=== PATIENT | male | born 1940 | race Caucasian/White ===

== ENCOUNTER 2017-10-04 06:33 | Day surgery (SDC) | payer MEDICARE, OTHER, SELFPAY ==
[2017-10-04] MEDS: PROPARACAINE 0.5% OPHTH SOL 2 DROPS EYE-OP (06:55)
[2017-10-04 06:57] VITALS: BP 162/91; PULSE 51; RESP 16; TEMP 36.3; O2SAT 98; BMI 28.7
[2017-10-04] MEDS: CATARACT EYE COMPOUND (10 DROPS/SYRINGE) 3 DROPS EYE-OP ×3 (07:00→07:09)
--- NOTE | 2017-10-04 07:56 | PM.PREOP ---
Pre-operative Note Interval Note Changes: No
--- NOTE | 2017-10-04 07:57 | P.OP.PRE_ITS ---
Pre-operative Note Interval Note Changes: No
--- NOTE | 2017-10-04 08:01 | SUR.OPER ---
Supine on eye stretcher, head on extension cradle secured with tape. Arms tucked at sides with blanket. Pillow under knees.
[2017-10-04] MEDS: CHONDROIDTIN/SOD HYALURONATE 1.05 ML SYRINGE INTRAOCULA (08:06)
[2017-10-04] MEDS: LIDOCAINE JELLY 2% 5 ML 1 APPLIC TOP (08:07)
[2017-10-04] MEDS: PHENYLEPHRINE/LIDOCAINE 3ML VIAL (OR) EYE-OP (08:07)
[2017-10-04] MEDS: MOXIFLOXACIN OPHTH DROPS 3 ML BOTTLE 2 DROPS INJ (08:07)
[2017-10-04] MEDS: TRIAMCINOLONE 50 MG/5 ML VIAL INJ (08:08)
[2017-10-04] MEDS: TETRACAINE 0.5% OPHTH DROPS 15 ML 2 DROPS EYE-RIGHT (08:08)
[2017-10-04] MEDS: BALANCED SALT IRRIG SOLN NO.2 500 ML, EPINEPHrine 1 MG IRR (08:08)
--- NOTE | 2017-10-04 08:17 | PM.OP.1 ---
Operative Date/Time/Diagnoses Pre-op diagnosis: Cataract Right eye Post-op diagnosis: same Procedure & Clinicians Procedure: Cataract Surgery Same procedure as scheduled: Yes Surgeon: Hussein Zapata Anesthesia Type: MAC +/- and Sedation Operative Notes Procedure in detail: Patient brought to the operating suite. Tetracaine drops placed in the right eye. Marking instrument was used to eris the verticle and horizontal meridians. Patient was prepped and draped in sterile manner. Wire lid speculum was placed in the eye. Marking instrument was used to eris the 15 degree meridian. Betadine drops were placed on the eye. This was irrigated. Lidocaine jelly was placed on the eye. A paracentesis port was created with a side-port blade. 0.1 mL 1% preservative free lidocaine was injected into the anterior chamber. The anterior chamber was deepened with viscoelastic. 2.6 mm keratome was used to create a temporal clear corneal incision. Cystotome and Utrata forceps were used to create continuous tear capsulorrhexis. Balanced salt solution was used to hydro dissect the nucleus. The phacoemulsification handpiece was inserted and the nucleus was removed using the stop and chop technique. The irrigation aspiration handpiece was inserted and the remaining cortex was removed. Anterior chamber was deepened with viscoelastic. An Huggins [id number] intraocular lens with a power of 24.0 was injected into the capsular bag. Irrigation aspiration handpiece was inserted and the remaining viscoelastic was removed. The lens was rotated to the 15 degree meridian. Incision was hydrated with balanced salt solution and found to be leak free with pressure with Weck-Megan sponges. 0.1 mL Vigamox injected anterior chamber. 0.3 mL Kenalog 10 mg was injected subconjunctivally. Lid speculum was removed. The patient left the operating room in excellent condition. Complications: none Condition: stable Disposition: same day surgery
[2017-10-04 08:32] VITALS: BP 151/82; PULSE 50; RESP 16; TEMP 37; O2SAT 16
== END 2017-10-04 08:33 ==
PROVIDERS: Family Provider Family Medicine; PCP Family Medicine; Visit Provider Ophthalmology
DX: H25.11 Age-related nuclear cataract, right eye (principal); I10 Essential (primary) hypertension; G47.33 Obstructive sleep apnea (adult) (pediatric)
CPT/HCPCS: J0171; J2250; J3010; J3301; V2787

== ENCOUNTER → 2017-10-10 11:30 | Outpatient (CLI) | payer MEDICARE, OTHER, SELFPAY ==
--- NOTE | 2017-10-10 | DI.CT.S_ITS ---
PROCEDURE: CT UE RT WO CON INDICATIONS: PRIMARY OSTEOARTHRITIS RIGHT SHOULDER TECHNIQUE: Noncontrast 1-1.5 mm thick sections acquired from the acromioclavicular joint to the inferior scapula, with coronal and sagittal reformatting. COMPARISON: None. FINDINGS: Image quality: Excellent. Bones: Degenerative osteoarthritis at the glenohumeral joint is severe, with [id number] articulation. There is a moderately severe pattern of degenerative a.c. joint osteoarthritis, and within the joint space multiple intra-articular loose bodies are present comprised of osteochondral structures ranging in size from several millimeters to 1.5 cm. Soft tissues: No effusion or mass is identified. No inflammation is seen.. IMPRESSION: Severe glenohumeral joint osteoarthritis, moderately severe acromioclavicular joint osteoarthritis, osteochondral loose bodies are prominent in this patient within the shoulder joint space. No recent trauma is found. Dictated by: Koby Wilson M.D. on 10/10/2017 at 12:33 Approved by: Koby Wilson M.D. on 10/10/2017 at 12:35
== END ==
PROVIDERS: Family Provider Family Medicine; PCP Family Medicine; Visit Provider Orthopaedic Surgery
DX: M19.011 Primary osteoarthritis, right shoulder (principal)
CPT/HCPCS: 73200

== ENCOUNTER 2017-10-18 06:59 | Day surgery (SDC) | payer MEDICARE, OTHER, SELFPAY ==
[2017-10-18] MEDS: PROPARACAINE 0.5% OPHTH SOL 2 DROPS EYE-OP (07:22)
[2017-10-18] MEDS: CATARACT EYE COMPOUND (10 DROPS/SYRINGE) 3 DROPS EYE-OP (07:30)
[2017-10-18 07:36] VITALS: BP 185/85; PULSE 51; RESP 15; TEMP 36.2; O2SAT 98
--- NOTE | 2017-10-18 08:17 | P.OP.PRE_ITS ---
Pre-operative Note Interval Note Changes: No
--- NOTE | 2017-10-18 08:17 | PM.PREOP ---
Pre-operative Note Interval Note Changes: No
--- NOTE | 2017-10-18 08:17 | PM.OP.1 ---
Operative Date/Time/Diagnoses Pre-op diagnosis: Cataract Left eye Post-op diagnosis: same Procedure & Clinicians Surgeon: Hussein Zapata Anesthesia Type: MAC +/- and Sedation Operative Notes Procedure in detail: Patient brought to the operating suite. Tetracaine drops placed in the left eye. Marking instrument was used to eris the vertical and horizontal meridians. Patient was prepped and draped in sterile manner. Wire lid speculum was placed in the eye. Marking instrument was used to eris the 155 degree meridian. Betadine drops were placed on the eye. This was irrigated. Lidocaine jelly was placed on the eye. A paracentesis port was created with a side-port blade. 0.1 mL 1% preservative free lidocaine was injected into the anterior chamber. The anterior chamber was deepened with viscoelastic. 2.6 mm keratome was used to create a temporal clear corneal incision. Cystotome and Utrata forceps were used to create continuous tear capsulorrhexis. Balanced salt solution was used to hydro dissect the nucleus. The phacoemulsification handpiece was inserted and the nucleus was removed using the stop and chop technique. The irrigation aspiration handpiece was inserted and the remaining cortex was removed. Anterior chamber was deepened with viscoelastic. An Huggins [id number] intraocular lens with a power of 24.5 was injected into the capsular bag. Irrigation aspiration handpiece was inserted and the remaining viscoelastic was removed. The lens was rotated to the 155 degree meridian. Incision was hydrated with balanced salt solution and found to be leak free with pressure with Weck-Megan sponges. 0.1 mL Vigamox injected anterior chamber. 0.3 mL Kenalog 10 mg was injected subconjunctivally. Lid speculum was removed. The patient left the operating room in excellent condition. Complications: none Condition: stable Disposition: same day surgery
[2017-10-18] MEDS: CHONDROIDTIN/SOD HYALURONATE 1.05 ML SYRINGE INTRAOCULA (08:32)
[2017-10-18] MEDS: LIDOCAINE JELLY 2% 5 ML 1 APPLIC TOP (08:33)
[2017-10-18] MEDS: PHENYLEPHRINE/LIDOCAINE VIAL (OR) 0.2 ML EYE-OP (08:33)
[2017-10-18] MEDS: TETRACAINE 0.5% OPHTH DROPS 15 ML 2 DROPS EYE-LEFT (08:33)
[2017-10-18] MEDS: MOXIFLOXACIN OPHTH DROPS 3 ML BOTTLE 2 DROPS INJ (08:33)
[2017-10-18] MEDS: BALANCED SALT IRRIG SOLN NO.2 500 ML, EPINEPHrine 1 MG IRR (08:34)
[2017-10-18] MEDS: TRIAMCINOLONE 50 MG/5 ML VIAL INJ (08:34)
[2017-10-18 08:58] VITALS: BP 145/84; PULSE 51; RESP 16; TEMP 36.2; O2SAT 96
== END 2017-10-18 09:03 ==
LOC: OR 07:01
PROVIDERS: Family Provider Family Medicine; PCP Family Medicine; Visit Provider Ophthalmology
DX: H25.12 Age-related nuclear cataract, left eye (principal); I10 Essential (primary) hypertension; G47.33 Obstructive sleep apnea (adult) (pediatric)
CPT/HCPCS: J0171; J2250; J3010; J3301; V2787

== ENCOUNTER → 2017-10-25 09:28 | Outpatient (CLI) | payer MEDICARE, OTHER, SELFPAY ==
--- NOTE | 2017-10-25 | DI.ECHO.S_ITS ---
[facility]---------+ [facility] +---------+ : : [address] : [place] : : : : [id number] : : : : Phone: [phone]+ Echocardiogram Report + + :Name: LUPE ARNOLD Study Date: 10/25/2017 Height: 67 in : :[facility] Exam Location: [facility] Weight: 179 lb : : Gender: Male BSA: 1.9 m2 : :: 1940 Age: 76 yrs BP: 148/75 mmHg: :Reason For Study: FATIGUE : : Performed By: Malcom De Leon : :Referring: RACHELLE PHILLIPS : + + Interpretation Summary The ejection fraction is estimated to be 60-65%. There is mild mitral regurgitation. There is trace aortic regurgitation. There is trace tricuspid regurgitation. The right ventricular systolic pressure is estimated at 20 mmHg assuming a right atrial pressure of 3 mm Hg. Compared to the prior echo report on 2017, there is no significant change. Procedure: A two-dimensional transthoracic echocardiogram with color flow and Doppler was performed. The study quality was technically adequate. Comparison is made with the echocardiogram of 12/23/16. The patient was in normal sinus rhythm during the exam. The patient had occasional PVCs during the exam. The patient was bradycardic with a heart rate of 46-56 beats per minute. Left Ventricle: The left ventricle is normal in size. There is normal left ventricular wall thickness. A false chord is noted (normal variant). The ejection fraction is estimated to be 60-65%. There are no focal wall motion abnormalities. Right Ventricle: The right ventricle is normal in size and function. Atria: The left atrium is moderately dilated. Right atrial size is normal. The interatrial septum is intact with no evidence for an atrial septal defect. Mitral Valve: The mitral valve is normal in structure and function. There is mild mitral regurgitation. Aortic Valve: The aortic valve is trileaflet. The aortic valve opens well. There is trace aortic regurgitation. Tricuspid Valve: The tricuspid valve is normal in structure and function. There is trace tricuspid regurgitation. The right ventricular systolic pressure is estimated at 20 mmHg assuming a right atrial pressure of 3 mm Hg. Pulmonic Valve: The pulmonic valve is normal in structure and function. There is trace pulmonic regurgitation. Great Vessels: The aortic root is normal size. The ascending aorta is mildly enlarged. The pulmonary artery is normal size. The IVC is of normal diameter and collapses greater than 50% with a sniff. This suggests a low right atrial pressure of 3 mm Hg. Pericardium/ Pleura There is no pericardial effusion. There is no pleural effusion. MMode/2D Measurements & Calculations LVIDd: 5.4 cm Ao root diam: 3.9 cm LVIDs: 3.3 cm Aortic Jxn: 3.1 cm FS: 37.6 % asc Aorta Diam: 3.9 cm EPSS: 0.78 cm IVSd: 1.0 cm LVPWd: 1.0 cm LV rubio. diameter/BSA (cm/m^2): 2.8 LV sys. diameter/BSA (cm/m^2): 1.7 LA dimension: 4.0 cm RA long axis: 6.0 cm LA A2 area: 27.2 cm2 RA area: 17.8 cm2 LA A4 area: 29.4 cm2 RA vol: 45.2 ml LA length (vol): 7.4 cm RA : 23.4 ml/m2 LA vol: 91.5 ml IVC diam: 2.1 cm LA vol index: 47.4 ml/m2 Doppler Measurements & Calculations Ao V2 max: 139.8 cm/sec LVOT Max Keenan: 89.0 cm/sec Ao V2 mean: 96.3 cm/sec LV V1 max P.2 mmHg Ao max P.8 mmHg LV V1 VTI: 21.2 cm Ao mean P.1 mmHg sev ratio: 0.66 Ao V2 VTI: 32.0 cm MV E max keenan: 53.9 cm/sec TR max keenan: 203.1 cm/sec MV A max keenan: 61.4 cm/sec TR max P.5 mmHg MV E/A: 0.88 PA V2 max: 66.0 cm/sec Med Peak E' Keenan: 3.2 cm/sec PA V2 mean: 47.0 cm/sec E/E' med: 16.9 PA mean P.94 mmHg Lat Peak E' Keenan: 5.4 cm/sec PA pr(Accel): 41.6 mmHg E/E' lat: 10.0 PA Accel Time: 0.09 sec E/e' average: 13.5 MV dec time: 0.23 sec Pulm A Revs Keenan: 20.6 cm/sec Reading Physician:04:38 PM
== END ==
PROVIDERS: Family Provider Family Medicine; PCP Family Medicine; Visit Provider Family Medicine
DX: I34.0 Nonrheumatic mitral (valve) insufficiency (principal); R53.83 Other fatigue
CPT/HCPCS: 93306

== ENCOUNTER 2017-10-31 09:45 | Outpatient (RCR) | payer MEDICARE, OTHER, SELFPAY ==
--- NOTE | 2017-09-05 12:45 | PT.OIE ---
Current Diagnoses Dizziness and giddiness (09/05/17) Provider Visit Care Team Role Provider Type Annetta Sanabria MD Family Provider Physician Primary Care Provider Specialty: Family Practice Address: [address] [place], [address] Email: Redd Oneill MD Attending Provider Physician Specialty: Ear, Nose, Throat Address: [address] [place] [address], [id number] Email: Physical Therapy Initial Evaluation PT-OP-A Visit Information Start: 09/05/17 16:32 Freq: Status: Active Protocol: Document 09/05/17 12:45 MDD (Rec: 09/05/17 16:48 MDD [email or web address]) Out-Patient Physical Therapy Visit Information Visit Information Visit Type Initial Evaluation Visit Start Time 12:10 Visit Stop Time 12:45 Total Visit Minutes 35 Visit Number 1 Number of MEDIA DEVELOPER Visits 0 Evaluation Information Evaluation Date 09/05/17 PT-OP-B Current Condition Start: 09/05/17 16:32 Freq: Status: Active Protocol: Document 09/05/17 12:45 MDD (Rec: 09/05/17 16:48 MDD [email or web address]) Current Condition History of Current Condition Onset Date April Current Complaints unsteadiness History of Current Condition Pt reports feeling unsteady on his feet since he was hospitalized in April. Reports that he finds himself losing his balance, but has not fallen. He is fairly active, biking to/from appointments and doing yoga a few times a week. He finds it especially hard to balance on one leg in yoga. Denies any dizziness associated with unsteadiness. His symptoms worsen with fatigue. 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 PT-OP-C Subjective Start: 09/05/17 16:32 Freq: Status: Active Protocol: Document 09/05/17 12:45 MDD (Rec: 09/05/17 16:48 MDD [email or web address]) Patient Questionnaires ABC- Activity Specific Balance Confidence Scale ABC Functional Impairment 1 to <20% Impaired (Score 81- 99) PT-OP-D Balance Start: 09/05/17 16:32 Freq: Status: Active Protocol: Document 09/05/17 12:45 MDD (Rec: 09/05/17 16:48 MDD [email or web address]) OP-PT Balance Assessment Sitting Balance Static Sitting Balance Ability Normal Dynamic Sitting Balance Ability Normal Standing Balance Static Standing Balance Ability Good Dynamic Standing Balance Ability Fair Standing Balance Comments Pt with postural sway in standing with wide RY, catches himself with stepping strategy Castillo Balance Assessment Evaluation Sitting to Standing Ability Independent w/Hands Unsupported Stance Supervision- 2 minutes Sitting Unsupported, Feet on Floor Safely- 2 minutes Standing to Sitting Ability Assist, Control w/Hands Transfer Ability Safely, Hand Use Unsupported Stance- Eyes Closed Supervision, 10 seconds Unsupported Stance- Eyes Open Supervision to maintain Reaching Forward Standing Safely, 2 inches Pick- Up Object From Floor Supervision Look Behind Shoulder - Standing Shifts Weight Well Turning 360 Degrees Turns slowly, but safely Unsupported Stance, Alternating Feet on (I)- 8 Steps in > 20 secs Stair Unsupported Tandem Stance Small Step- 30 seconds Unilateral Leg Stance Lifts Leg/Unable to Hold Total Score Castillo Total Score (out of 56 points) 39 Castillo Impairment Rating 20 to 39% Impaired (Score 34- 44) Braun Fall Scale Copyright Permission Aparna TOMPKINS, Aparna RM, Florecita SJ. Development of a scale to identify the fall- prone patient. Can J Aging 1989;8;366-7. Beth Braun (2009). Preventing patient falls. (2nd ed). [place]: Flaherty. PT-OP-E Functional Tests Start: 09/05/17 16:32 Freq: Status: Active Protocol: Document 09/05/17 12:45 MDD (Rec: 09/05/17 16:48 MDD [email or web address]) Functional Tests Five Times Sit to Stand Test Score 11 seconds PT-OP-M Strength Start: 09/05/17 16:32 Freq: Status: Active Protocol: Document 09/05/17 12:45 MDD (Rec: 09/05/17 16:48 MDD [email or web address]) Hip Strength Hip Manual Muscle Testing Right Flexion (L2) 5 Normal Extension (S1) 4 Good Abduction 4+ Good+ External Rotation 5 Normal Internal Rotation 5 Normal Left Flexion (L2) 5 Normal Extension (S1) 4 Good Abduction 4+ Good+ External Rotation 5 Normal Internal Rotation 5 Normal Knee Strength Knee Manual Muscle Testing Right Flexion (S2) 5 Normal Extension (L3) 5 Normal Left Flexion (S2) 4+ Good+ Extension (L3) 5 Normal PT-OP-Q Treatments Start: 09/05/17 16:32 Freq: Status: Active Protocol: Document 09/05/17 12:45 MDD (Rec: 09/05/17 16:48 MDD [email or web address]) Therapeutic Exercises Standing Exercises 3 Standing Exercise Name heel raises Side bilateral Reps/Minutes 2 x 20 2 Standing Exercise Name standing hip abduction w/ L1 t -band Side bilateral Reps/Minutes 2 x 15 1 Standing Exercise Name sit to stands Side bilateral Reps/Minutes 15 PT-OP-T Assessment and Plan Start: 09/05/17 16:32 Freq: Status: Active Protocol: Document 09/05/17 12:45 MDD (Rec: 09/05/17 16:48 MDD [email or web address]) Physical Therapy Assessment Rehab Potential Rehabilitation Potential Excellent Evaluation Complexity Number of Personal Factors/Comorbidities 0 Number of Body Systems Impaired 1-2 Clinical Presentation at Evaluation Stable Impairments Impairments Activity Tolerance Balance Gait Strength Goals 2 Impairment strength Short Term Goal (STG) Pt to demonstrate 5/5 hip strength in major muscles in 8 weeks. One Impairment balance Short Term Goal (STG) Pt to increase score on castillo balance assessment to at least 47 to indicate decreased fall risk in 6 weeks. Assessment Summary Assessment Pt is complaining of unsteadiness on his feet that is currently limiting his ability to participate in hiking activities. On examination today he demonstrates mild balance impairments, impaired gait and impaired lower extremity strength. He should benefit from a PT plan of care to address the above impairments. Physical Therapy Plan Frequency and Duration Frequency of Treatment 1x/Week Duration of Treatment 8 Plan of Care Start Date 09/05/17 Plan of Care End Date 10/31/17 Next Visit Focus/Plan Next Note Type Treatment Note Next Visit Plan review HEP and progress as tolerated
--- NOTE | 2017-09-05 16:49 | PT.OPPOC ---
Current Diagnoses Dizziness and giddiness (09/05/17) Provider Visit Care Team Role Provider Type Annetta Sanabria MD Family Provider Physician Primary Care Provider Specialty: Family Practice Address: [facility] [place], [address] Email: Redd Oneill MD Attending Provider Physician Specialty: Ear, Nose, Throat Address: [address] [place] [address], [address] Email: Plan Of Care PT-OP-T Assessment and Plan Start: 09/05/17 16:32 Freq: Status: Active Protocol: Document 09/05/17 12:45 MDD (Rec: 09/05/17 16:48 MDD [email or web address]) Physical Therapy Assessment Rehab Potential Rehabilitation Potential Excellent Evaluation Complexity Number of Personal Factors/Comorbidities 0 Number of Body Systems Impaired 1-2 Clinical Presentation at Evaluation Stable Impairments Impairments Activity Tolerance Balance Gait Strength Goals 2 Impairment strength Short Term Goal (STG) Pt to demonstrate 5/5 hip strength in major muscles in 8 weeks. One Impairment balance Short Term Goal (STG) Pt to increase score on wesley balance assessment to at least 47 to indicate decreased fall risk in 6 weeks. Assessment Summary Assessment Pt is complaining of unsteadiness on his feet that is currently limiting his ability to participate in hiking activities. On examination today he demonstrates mild balance impairments, impaired gait and impaired lower extremity strength. He should benefit from a PT plan of care to address the above impairments. Physical Therapy Plan Frequency and Duration Frequency of Treatment 1x/Week Duration of Treatment 8 Plan of Care Start Date 09/05/17 Plan of Care End Date 10/31/17 Next Visit Focus/Plan Next Note Type Treatment Note Next Visit Plan review HEP and progress as tolerated Plan of Care Dates Plan of Care Start Date 09/05/17 Plan of Care End Date 10/31/17 Please Sign and Return: I have reviewed this Plan of Care and certify that the skilled therapy services above are required to meet the patient?s needs. Physician Signature Date Printed Name and Credentials Clinical Instructor Signature Printed Name and Credentials
--- NOTE | 2017-09-27 10:30 | PT.OTN ---
Current Diagnoses Dizziness and giddiness (09/27/17) Physical Therapy Treatment Note PT-OP-A Visit Information Start: 09/05/17 16:32 Freq: Status: Active Protocol: Document 09/27/17 10:30 MDD (Rec: 09/27/17 12:45 MDD [id number]) Out-Patient Physical Therapy Visit Information Visit Information Visit Type Treatment Note Visit Start Time 09:50 Visit Stop Time 10:30 Total Visit Minutes 40 Visit Number 2 Number of LINE PATROLLER Visits 0 Evaluation Information Evaluation Date 09/05/17 PT-OP-B Current Condition Start: 09/05/17 16:32 Freq: Status: Active Protocol: Document 09/05/17 12:45 MDD (Rec: 09/05/17 16:48 MDD [email or web address]) Current Condition History of Current Condition Onset Date April Current Complaints unsteadiness History of Current Condition Pt reports feeling unsteady on his feet since he was hospitalized in April. Reports that he finds himself losing his balance, but has not fallen. He is fairly active, biking to/from appointments and doing yoga a few times a week. He finds it especially hard to balance on one leg in yoga. Denies any dizziness associated with unsteadiness. His symptoms worsen with fatigue. 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 PT-OP-C Subjective Start: 09/05/17 16:32 Freq: Status: Active Protocol: Document 09/27/17 10:30 MDD (Rec: 09/27/17 12:45 MDD [email or web address]) OP-PT Subjective Patient Comments Patient Comments Pt admits he has not done his exercises. Has been out of town in [place] and [facility] , but was very active. Does feel that his dizziness or imbalance has improved a bit. Patient Reported Progress Improving PT-OP-D Balance Start: 09/05/17 16:32 Freq: Status: Active Protocol: Document 09/05/17 12:45 MDD (Rec: 09/05/17 16:48 MDD [email or web address]) OP-PT Balance Assessment Sitting Balance Static Sitting Balance Ability Normal Dynamic Sitting Balance Ability Normal Standing Balance Static Standing Balance Ability Good Dynamic Standing Balance Ability Fair Standing Balance Comments Pt with postural sway in standing with wide RY, catches himself with stepping strategy Castillo Balance Assessment Evaluation Sitting to Standing Ability Independent w/Hands Unsupported Stance Supervision- 2 minutes Sitting Unsupported, Feet on Floor Safely- 2 minutes Standing to Sitting Ability Assist, Control w/Hands Transfer Ability Safely, Hand Use Unsupported Stance- Eyes Closed Supervision, 10 seconds Unsupported Stance- Eyes Open Supervision to maintain Reaching Forward Standing Safely, 2 inches Pick- Up Object From Floor Supervision Look Behind Shoulder - Standing Shifts Weight Well Turning 360 Degrees Turns slowly, but safely Unsupported Stance, Alternating Feet on (I)- 8 Steps in > 20 secs Stair Unsupported Tandem Stance Small Step- 30 seconds Unilateral Leg Stance Lifts Leg/Unable to Hold Total Score Castillo Total Score (out of 56 points) 39 Castillo Impairment Rating 20 to 39% Impaired (Score 34- 44) Braun Fall Scale Copyright Permission Aparna TOMPKINS, Aparna RM, Florecita SJ. Development of a scale to identify the fall- prone patient. Can J Aging 1989;8;366-7. Beth Braun (2009). Preventing patient falls. (2nd ed). [place]: Flaherty. PT-OP-E Functional Tests Start: 09/05/17 16:32 Freq: Status: Active Protocol: Document 09/05/17 12:45 MDD (Rec: 09/05/17 16:48 MDD [email or web address]) Functional Tests Five Times Sit to Stand Test Score 11 seconds PT-OP-M Strength Start: 09/05/17 16:32 Freq: Status: Active Protocol: Document 09/05/17 12:45 MDD (Rec: 09/05/17 16:48 MDD [email or web address]) Hip Strength Hip Manual Muscle Testing Right Flexion (L2) 5 Normal Extension (S1) 4 Good Abduction 4+ Good+ External Rotation 5 Normal Internal Rotation 5 Normal Left Flexion (L2) 5 Normal Extension (S1) 4 Good Abduction 4+ Good+ External Rotation 5 Normal Internal Rotation 5 Normal Knee Strength Knee Manual Muscle Testing Right Flexion (S2) 5 Normal Extension (L3) 5 Normal Left Flexion (S2) 4+ Good+ Extension (L3) 5 Normal PT-OP-Q Treatments Start: 09/05/17 16:32 Freq: Status: Active Protocol: Document 09/27/17 10:30 MDD (Rec: 09/27/17 12:45 MDD [id number]) Therapeutic Exercises Standing Exercises 3 Standing Exercise Name heel raises - modified to single leg Side bilateral Reps/Minutes 2 x 20 each, holding onto counter 2 Standing Exercise Name standing hip abduction w/ L1 t -band Side bilateral Reps/Minutes 2 x 15 1 Standing Exercise Name sit to stands Side bilateral Reps/Minutes 20 Comments Pt with one small LOB initially upon standing, able to self correct Therapeutic Activity Therapeutic Activity Dynamic balance training Reps/Minutes 10 reps each Comments Standing marching without UE support - focus on controlled movements. Stepping onto rubalcava foam mat without UE support, lunges onto bosu balance without UE support. Rhomberg balance progression Name static balance training Reps/Minutes 2 x 60 seconds each Comments Romberg position feet together , eyes closed, head nods and turns. Progressed to tandem stance. Static balance on bosu, feet together. PT-OP-T Assessment and Plan Start: 09/05/17 16:32 Freq: Status: Active Protocol: Document 09/27/17 10:30 MDD (Rec: 09/27/17 12:45 [facility] [id number]) Physical Therapy Assessment Rehab Potential Rehabilitation Potential Excellent Progress Towards Goals Progress Towards Goals Progressing Toward Goals Progress Comments Pt reports feeling that his balance has improved, but reportedly has not done any of his exercises. Physical Therapy Plan Frequency and Duration Frequency of Treatment 1x/Week Duration of Treatment 8 Plan of Care Start Date 09/05/17 Plan of Care End Date 10/31/17 Next Visit Focus/Plan Next Note Type Treatment Note Next Visit Plan Continue with education on HEP , increase challenge of balance activity with shuttle etc. Trial DGI.
--- NOTE | 2017-10-11 10:30 | PT.OTN ---
Current Diagnoses Dizziness and giddiness (10/11/17) Physical Therapy Treatment Note PT-OP-A Visit Information Start: 09/05/17 16:32 Freq: Status: Active Protocol: Document 10/11/17 10:30 MDD (Rec: 10/11/17 11:47 MDD [email or web address]) Out-Patient Physical Therapy Visit Information Visit Information Visit Type Treatment Note Visit Start Time 09:50 Visit Stop Time 10:30 Total Visit Minutes 40 Visit Number 3 Number of CHEF'S ASSISTANT Visits 0 Evaluation Information Evaluation Date 09/05/17 PT-OP-B Current Condition Start: 09/05/17 16:32 Freq: Status: Active Protocol: Document 09/05/17 12:45 MDD (Rec: 09/05/17 16:48 MDD [email or web address]) Current Condition History of Current Condition Onset Date April Current Complaints unsteadiness History of Current Condition Pt reports feeling unsteady on his feet since he was hospitalized in April. Reports that he finds himself losing his balance, but has not fallen. He is fairly active, biking to/from appointments and doing yoga a few times a week. He finds it especially hard to balance on one leg in yoga. Denies any dizziness associated with unsteadiness. His symptoms worsen with fatigue. 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 PT-OP-C Subjective Start: 09/05/17 16:32 Freq: Status: Active Protocol: Document 10/11/17 10:30 MDD (Rec: 10/11/17 11:47 MDD [email or web address]) OP-PT Subjective Patient Comments Patient Comments Pt reports he has been doing his exercises at home and has been going to a gym class 3 days a week. Many of his PT exercises are incorporated into the gym class too. Patient Reported Progress Improving PT-OP-D Balance Start: 09/05/17 16:32 Freq: Status: Active Protocol: Document 10/11/17 10:30 MDD (Rec: 10/11/17 11:48 MDD [email or web address]) Balance Tests Other Other Balance Tests Performed Dynamic Gait index: 17/24 indicates fall risk if less than 19/24. PT-OP-E Functional Tests Start: 09/05/17 16:32 Freq: Status: Active Protocol: Document 09/05/17 12:45 MDD (Rec: 09/05/17 16:48 MDD [email or web address]) Functional Tests Five Times Sit to Stand Test Score 11 seconds PT-OP-M Strength Start: 09/05/17 16:32 Freq: Status: Active Protocol: Document 09/05/17 12:45 MDD (Rec: 09/05/17 16:48 MDD [email or web address]) Hip Strength Hip Manual Muscle Testing Right Flexion (L2) 5 Normal Extension (S1) 4 Good Abduction 4+ Good+ External Rotation 5 Normal Internal Rotation 5 Normal Left Flexion (L2) 5 Normal Extension (S1) 4 Good Abduction 4+ Good+ External Rotation 5 Normal Internal Rotation 5 Normal Knee Strength Knee Manual Muscle Testing Right Flexion (S2) 5 Normal Extension (L3) 5 Normal Left Flexion (S2) 4+ Good+ Extension (L3) 5 Normal PT-OP-Q Treatments Start: 09/05/17 16:32 Freq: Status: Active Protocol: Document 10/11/17 10:30 MDD (Rec: 10/11/17 11:47 MDD [email or web address]) Therapeutic Exercises Standing Exercises 3 Standing Exercise Name heel raises - modified to single leg Side bilateral Reps/Minutes 2 x 20 each, Comments Practice hovering hands above counter to challenge balance 2 Standing Exercise Name sidestepping with L1 t-band Side bilateral Reps/Minutes 3 roundtrips x 15 feet Therapeutic Activity Therapeutic Activity Shuttle Name balance on shuttle fwd/side to side Reps/Minutes 2 x 60 seconds each Comments eyes open, eyes closed, head nods and turns, trunk rotation progressing from yellow loops to blue for increased challenge. Mini squats x 15 on shuttle. Rhomberg balance progression Name static/dynamic balance training Reps/Minutes 2 x 60 seconds each Comments single leg balance, progressing to single leg balance with contralateral leg taps fwd/back and side. Stepping strategy with pt cued to lean forward/back until he needs to step to catch himself. PT-OP-T Assessment and Plan Start: 09/05/17 16:32 Freq: Status: Active Protocol: Document 10/11/17 10:30 MDD (Rec: 10/11/17 11:47 MDD [email or web address]) Physical Therapy Assessment Goals 2 Impairment strength Short Term Goal (STG) Pt to demonstrate 5/5 hip strength in major muscles in 8 weeks. One Impairment balance Short Term Goal (STG) Pt to increase score on wesley balance assessment to at least 47 to indicate decreased fall risk in 6 weeks. Progress Towards Goals Progress Towards Goals Progressing Toward Goals Progress Comments Pt demonstrating improved participation in HEP, with additional 3 days per week gym class. Assessment Summary Assessment Pt demonstrates ability to turn quickly today without LOB . Physical Therapy Plan Frequency and Duration Frequency of Treatment 1x/Week Duration of Treatment 8 Plan of Care Start Date 09/05/17 Plan of Care End Date 10/31/17 Next Visit Focus/Plan Next Note Type Treatment Note Next Visit Plan Continue with education on HEP , increase challenge of balance activity with shuttle etc.
--- NOTE | 2017-10-31 10:40 | PT.OTN ---
Current Diagnoses Dizziness and giddiness (10/31/17) Physical Therapy Treatment Note PT-OP-A Visit Information Start: 09/05/17 16:32 Freq: Status: Active Protocol: Document 10/31/17 10:40 MDD (Rec: 10/31/17 12:45 MDD [email or web address]) Out-Patient Physical Therapy Visit Information Visit Information Visit Type Treatment Note Visit Start Time 10:00 Visit Stop Time 10:40 Total Visit Minutes 40 Visit Number 4 Number of SURGICAL NURSE PRACTITIONER Visits 0 Evaluation Information Evaluation Date 09/05/17 PT-OP-B Current Condition Start: 09/05/17 16:32 Freq: Status: Active Protocol: Document 09/05/17 12:45 MDD (Rec: 09/05/17 16:48 MDD [email or web address]) Current Condition History of Current Condition Onset Date April Current Complaints unsteadiness History of Current Condition Pt reports feeling unsteady on his feet since he was hospitalized in April. Reports that he finds himself losing his balance, but has not fallen. He is fairly active, biking to/from appointments and doing yoga a few times a week. He finds it especially hard to balance on one leg in yoga. Denies any dizziness associated with unsteadiness. His symptoms worsen with fatigue. 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 PT-OP-C Subjective Start: 09/05/17 16:32 Freq: Status: Active Protocol: Document 10/31/17 10:40 MDD (Rec: 10/31/17 12:45 MDD [email or web address]) OP-PT Subjective Patient Comments Patient Comments Pt reports continued improvement in balance and feelings of unsteadiness. He notes that his can tell the difference too. Patient Reported Progress Improving PT-OP-D Balance Start: 09/05/17 16:32 Freq: Status: Active Protocol: Document 10/31/17 10:40 MDD (Rec: 10/31/17 12:45 MDD [email or web address]) Balance Tests Other Other Balance Tests Performed Dynamic gait index: 22/24 indicates low fall risk. PT-OP-E Functional Tests Start: 09/05/17 16:32 Freq: Status: Active Protocol: Document 09/05/17 12:45 MDD (Rec: 09/05/17 16:48 MDD [email or web address]) Functional Tests Five Times Sit to Stand Test Score 11 seconds PT-OP-M Strength Start: 09/05/17 16:32 Freq: Status: Active Protocol: Document 09/05/17 12:45 MDD (Rec: 09/05/17 16:48 MDD [email or web address]) Hip Strength Hip Manual Muscle Testing Right Flexion (L2) 5 Normal Extension (S1) 4 Good Abduction 4+ Good+ External Rotation 5 Normal Internal Rotation 5 Normal Left Flexion (L2) 5 Normal Extension (S1) 4 Good Abduction 4+ Good+ External Rotation 5 Normal Internal Rotation 5 Normal Knee Strength Knee Manual Muscle Testing Right Flexion (S2) 5 Normal Extension (L3) 5 Normal Left Flexion (S2) 4+ Good+ Extension (L3) 5 Normal PT-OP-Q Treatments Start: 09/05/17 16:32 Freq: Status: Active Protocol: Document 10/31/17 10:40 MDD (Rec: 10/31/17 12:45 MDD [email or web address]) Therapeutic Activity Therapeutic Activity 1 Name DGI assessment Reps/Minutes 8 minutes Comments Performed DGI assessment including multiple balance challenges ie head nods and turns with walking, obstacles etc. Shuttle Name balance on shuttle fwd/side to side Reps/Minutes 2 x 60 seconds each Comments eyes open, eyes closed, head nods and turns, trunk rotation progressing from yellow loops to blue for increased challenge. Also performed semi tandem stance both directions Dynamic balance training Reps/Minutes 10 reps each Comments Standing marching without UE support - focus on controlled movements. Stepping onto rubalcava foam mat without UE support, lunges onto bosu balance without UE support. Rhomberg balance progression Name static/dynamic balance training Reps/Minutes 2 x 60 seconds each Comments single leg balance, progressing to single leg balance with contralateral leg taps fwd/back and side. Stepping strategy with pt cued to lean forward/back until he needs to step to catch himself. PT-OP-T Assessment and Plan Start: 09/05/17 16:32 Freq: Status: Active Protocol: Document 10/31/17 10:40 MDD (Rec: 10/31/17 12:45 MDD [email or web address]) Physical Therapy Assessment Impairments Impairments Gait Goals One Impairment balance Short Term Goal (STG) Pt to increase score on wesley balance assessment to at least 47 to indicate decreased fall risk in 6 weeks. Progress Towards Goals Progress Towards Goals Goals Met Progress Comments Pt performed significantly improved DGI score today indicating low fall risk. Wesley balance test not performed as he would likely have ceilinged out. Assessment Summary Assessment Pt demonstrates significant improvements in balance and stability at this point. Physical Therapy Plan Frequency and Duration Frequency of Treatment 1x/Week Duration of Treatment 8 Plan of Care Start Date 09/05/17 Plan of Care End Date 10/31/17 Discharge Physical Therapy Discharge Reasons Goals Met Discharge Comments He has started goint to a 3x per week exercise class and plans to continue indefinitely . Pt will be going in for shoulder surgery in the near future and has met all current PT goals.
== END 2017-11-25 09:34 ==
LOC: PHYS 09:45
PROVIDERS: Family Provider Family Medicine; PCP Family Medicine; Visit Provider Otolaryngology
DX: R42 Dizziness and giddiness (principal)
CPT/HCPCS: 97110; 97161; 97530

== ENCOUNTER → 2018-01-02 06:42 | Outpatient (CLI) | payer MEDICARE, OTHER, SELFPAY ==
--- NOTE | 2018-01-02 | DI.MRI.S_ITS ---
PROCEDURE: MR HEAD/BRAIN WO CON INDICATIONS: COGNITIVE IMPAIRMENT TECHNIQUE: Non-contrast axial T1 spin echo, axial T2 fast spin echo, sagittal and axial FLAIR, coronal T2 fast spin echo, axial gradient echo, axial diffusion and ADC through the brain. COMPARISON: None. FINDINGS: Image quality: Excellent. CSF spaces: Ventricles appear symmetric in size and shape. Basal cisterns are patent. No extra-axial fluid collections. Brain: No intracranial bleeds or mass effects. There is moderate cerebral volume loss for age. There are [id number] periventricular and deep white matter chronic small vessel ischemic changes. There are several foci of susceptibility artifacts bilaterally involving cerebrum and cerebellum. Brainstem appears normal. Diffusion-weighted images show no acute ischemic insults. No chronic ischemic insults. Normal intravascular flow voids are present. Skull and face: Calvarial bone marrow is normal in signal. Orbits are normal. Sinuses: There is mucosal thickening in frontal and ethmoid sinuses bilaterally and the left sphenoid and maxillary sinus. Mastoids are clear. IMPRESSION: 1. No acute intracranial abnormalities. 2. Moderate cerebral volume loss and [id number] chronic microvascular ischemic changes. 3. There are several foci of susceptibility artifacts involving cerebrum and cerebellum bilaterally, suggesting amyloid angiopathy. 4. Bilateral sinusitis. Dictated by: Lorenzo Rodríguez M.D. on 01/02/2018 at 8:44 Approved by: Lorenzo Rodríguez M.D. on 01/02/2018 at 8:51
== END ==
PROVIDERS: Family Provider Family Medicine; PCP Family Medicine; Visit Provider Specialist
DX: R41.89 Other symptoms and signs involving cognitive functions and awareness (principal); J32.4 Chronic pansinusitis
CPT/HCPCS: 70551

== ENCOUNTER → 2019-08-16 09:43 | Outpatient (CLI) | payer MEDICARE, OTHER, SELFPAY ==
--- NOTE | 2019-08-16 | DI.NM.S_ITS ---
PROCEDURE: NM BONE 3 PHASE RADIOPHARMACEUTICAL: 19.9 mCi Tc-99m MDP IV. INDICATIONS: PAIN IN LEFT KNEE TECHNIQUE: Multiple bone scintigrams were obtained after intravenous injection of Tc-99m MDP, including flow, blood pool, and delayed images centered to the region of interest. COMPARISON: [facility], CR, XR KNEE ARTHRITIC SERIES LT, 07/28/2017, 13:55. [facility], CR, XR KNEE ARTHRITIC SERIES LT, 08/06/2019, 10:11. FINDINGS: The flow and Doppler images demonstrate symmetric vascular activity. There is photopenia around left knee consistent with total knee arthroplasty. Low level increased activity is noted around the knee prosthesis on delayed images, most likely secondary to postsurgical change. Mild increased uptake in the right knee is consistent with degenerative joint disease. IMPRESSION: 1. Left knee total arthroplasty. Low-level increased activity around the prosthesis is most likely secondary to postsurgical change. 2. Mild degenerative joint disease of the right knee. Dictated by: Lorenzo Rodríguez M.D. on 08/16/2019 at 14:53 Approved by: Lorenzo Rodríguez M.D. on 08/16/2019 at 15:01
== END ==
PROVIDERS: Family Provider Family Medicine; PCP Family Medicine; Referring Provider Physician Assistant Surgical; Visit Provider Physician Assistant Surgical
DX: M25.562 Pain in left knee (principal); M17.12 Unilateral primary osteoarthritis, left knee; Z96.652 Presence of left artificial knee joint
CPT/HCPCS: 78315; A9503

== ENCOUNTER 2021-01-26 11:39 | Inpatient (IN) | payer MEDICARE, OTHER, SELFPAY ==
[2021-01-26] VITALS (29 sets, daily range): BP systolic 109–179; BP diastolic 58–82; PULSE 66–88; RESP 16–33; TEMP 36.9–38.6; O2SAT 85–99; BMI 29.8
--- NOTE | 2021-01-26 11:50 | DI.RAD.S_ITS ---
PROCEDURE: XR CHEST 1V INDICATIONS: suspected sepsis TECHNIQUE: One view of the chest was acquired. COMPARISON: [facility], , CHEST 1 VIEW, 12/19/2016, 18:22. FINDINGS: Surgical changes and devices: Surgical clips in the region of the thyroid gland. Lungs and pleura: Low lung volumes. Bibasilar atelectatic changes, chronic. Patchy left lateral mid lung opacity, nonspecific. Mediastinum: Mediastinal contours appear normal. Heart size is normal. Bones and chest wall: No suspicious bony lesions. Overlying soft tissues appear unremarkable. Degenerative change in the right shoulder. IMPRESSION: 1. New left lateral mid lung patchy opacity is nonspecific. Possible underlying pneumonia superimposed on scarring and atelectatic changes could be considered. Dictated by: Cristal Ambrosio M.D. on 01/26/2021 at 12:48 Approved by: Cristal Ambrosio M.D. on 01/26/2021 at 12:51
--- NOTE | 2021-01-26 12:12 | DI.CT.S_ITS ---
PROCEDURE: CT HEAD/BRAIN WO CON INDICATIONS: Confusion after fall TECHNIQUE: Noncontrast 4.5 mm thick angled axial sections acquired from the foramen magnum to the vertex, with coronal and sagittal reformats. For radiation dose reduction, the following was used: automated exposure control, adjustment of mA and/or kV according to patient size. COMPARISON: None. FINDINGS: Cerebrum, Cerebellum and Brainstem: Moderate cerebral and cerebellar volume loss as well as moderate multifocal hypoattenuation in the deep and subcortical white matter present. No acute hemorrhage or mass effect. Dick-white distinction is preserved throughout the exam. Basal cisterns and foramen magnum are clear. Ventricles: Appropriate in size and position given the amount of cerebral atrophy. No evidence of hydrocephalus. Skull Base: The bony sella, pituitary gland and infundibulum are unremarkable. Clivus and craniovertebral relationships are appropriate. Visualized portions of external auditory canals and tympanic cavities are within normal limits. Calvarium and Scalp: No scalp soft tissue swelling. The underlying calvarium is intact without skull fracture or lytic lesion. Paranasal Sinuses: Unremarkable as visualized. No mucosal thickening or retention cyst noted. Mastoids: Unremarkable as visualized. No mastoid effusion present. Other: Bilateral intraocular lens replacements noted. Debris in the left external auditory canal(s) can be correlated with direct visualization Atherosclerotic calcification in the cavernous portions of the distal internal carotid arteries are noted. IMPRESSION: 1. Atrophy and chronic ischemic change without acute hemorrhage or mass effect Approved by: Sb Garcia M.D. on 01/26/2021 at 12:42
--- NOTE | 2021-01-26 12:13 | ED.GENADULT ---
HPI - General Adult General Chief complaint: Fever Stated complaint: Confusion Time Seen by Provider: 01/26/21 11:49 Source: patient, family and EMS Mode of arrival: EMS History of Present Illness HPI narrative: Patient is an 80-year-old male. He is here for evaluation of confusion and fever. Is brought in by EMS. HPI is provided by both the patient and his son who is at bedside. She reported that approximately 3 days ago the patient ?over did it ?. Son reports that the patient did quite a bit work a couple days ago getting ready for [employer]. Did report that he drank some alcohol. Eight quite a few knots and also heavy dinner. It was the next day that the patient was not acting normal. Spent most the time at home and bed. Did not take any of his medications. There has been no vomiting. Patient has been having some urinary issues. No rashes. Slight headache. Today patient was somewhat confused. He also fell 1 time over the past 24 hours. Related Data Home Medications Medication Instructions Recorded Confirmed lisinopril 20 1 tab PO QDAY #0 03/02/16 08/24/20 mg-hydrochlorothiazide 12.5 mg tablet acetaminophen 325 mg tablet 650 mg PO Q4HP PRN #0 01/14/17 08/24/20 clobetasol 0.05 % scalp solution 0.05 % TOPICAL DAILY #0 01/14/17 08/24/20 hydrocortisone 100 mg/60 mL enema 100 mg RC HS PRN #0 01/14/17 08/24/20 ipratropium bromide 42 mcg (0.06 1 spray INTRANASAL DAILY #0 01/14/17 08/24/20 %) nasal spray metoprolol succinate 100 mg PO DAILY 10/04/17 08/24/20 Multi Vitamin 1 tab PO DAILY 10/18/17 08/24/20 Probiotic PO TID 10/18/17 08/24/20 balsalazide 2,250 mg PO TID 10/18/17 08/24/20 cholecalciferol (vitamin D3) 1,000 units PO DAILY 10/18/17 08/24/20 iron 14 mg PO DAILY 10/18/17 08/24/20 levothyroxine 150 mcg PO DAILY 10/18/17 08/24/20 melatonin 5 mg PO BEDTIME PRN 10/18/17 08/24/20 turmeric root extract 2,000 mg PO BID 10/18/17 08/24/20 Respironics System One 60 Series #1 ea 11/13/18 08/24/20 BIPAP Previous Rx's Medication Instructions Recorded triamcinolone acetonide 0.1 % 1 applic TOPICAL BID #30 g 08/24/20 topical cream Allergies Allergy/AdvReac Type Severity Reaction Status Date / Time mesalamine [MESALAMINE] AdvReac Unknown FEVER Verified 08/24/20 11:46 Review of Systems Constitutional Constitutional: Reports system reviewed and no additional complaints, except as documented ENT Ears, Nose, Mouth, and Throat: Reports system reviewed and no additional complaints, except as documented Cardiovascular Cardiovascular: Reports system reviewed and no additional complaints, except as documented Respiratory Respiratory: Reports system reviewed and no additional complaints, except as documented Gastrointestinal Gastrointestinal: Reports system reviewed and no additional complaints, except as documented Genitourinary Genitourinary: Reports system reviewed and no additional complaints, except as documented Musculoskeletal Musculoskeletal: Reports system reviewed and no additional complaints, except as documented Integumentary/Breasts Skin/Breast: Reports system reviewed and no additional complaints, except as documented Neurologic Neurologic: Reports system reviewed and no additional complaints, except as documented Hematologic/Lymphatic On Anticoagulants: No Allergic/Immunologic Allergic/Immunologic: Reports system reviewed and no additional complaints, except as documented Patient History Medical History 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 Corneal abrasion Excessive daytime sleepiness Hypertension Hypothyroidism associated with surgical procedure Obstructive sleep apnea of adult PANCREATIC CYSTS Primary insomnia Rectal bleeding Restless legs syndrome (RLS) Snoring Social History marital status: details: shavonne Waite number of children: 1 household members: spouse lives independently: Yes caregiver/support person: No pets and animals: No occupational status: previously employed current occupational exposures/hazards: No 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, 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 Smoking Status: Former smoker alcohol intake: current substance use type: does not use Smoking Status: Former smoker Substance Use Type: does not use Exam Initial Vital Signs Initial Vital Signs: Vital Signs Temperature 101.3 F H 01/26/21 11:35 Pulse Rate 83 01/26/21 11:35 Respiratory Rate 18 01/26/21 11:35 Blood Pressure 131/63 01/26/21 11:35 Pulse Oximetry 93 01/26/21 11:35 Const General: comfortable and well developed Limitations: altered mental status (Confused) HENMT Head: normal to inspection and normocephalic Eyes General: appearance normal, both eyes and all related structures Chest Chest: normal inspection of the chest Resp Effort & Inspection: normal respiratory effort Auscultation: clear to auscultation bilaterally Cardio Rate: regular rate Rhythm: regular rhythm GI Inspection: non-distended Palpation: soft and No tender Skin General: no rashes or lesions noted Neuro General: patient alert, patient awake and moves all extremities Extrem General: normal to inspection, capillary refill normal and No edema Psych Appearance: grossly normal and well kempt Scores GCS [place] coma scale eye opening: Spontaneous [place] coma scale verbal response: Confused [place] coma scale motor response: Obey commands [place] coma scale total score: 14 Course Orders Ordered: ED Orders 01/26/21 11:40 COVID19 -Nasal swab/Pre-Proc Stat Comprehensive Metabolic Panel Stat Lactate (Lactic Acid) Stat Lipase Stat Partial Thromboplastin Time Stat Procalcitonin Stat Prothrombin Time INR Stat TSH [Thyroid Stimulating Hormone] Stat Troponin & CK Cardiac Panel Stat 01/26/21 11:50 XR chest 1V Stat EKG-12 Lead Stat RT Consult Eval and Treat NOW 01/26/21 12:12 CT head/brain wo con Stat 01/26/21 12:40 Blood Culture Stat Complete Blood Count AUTO DIFF Stat 01/26/21 12:55 CT abdomen pelvis w con Stat 01/26/21 13:35 Respiratory Panel (Film Array) Stat 01/26/21 13:56 Urinalysis and Microscopic Stat Urine Culture Stat 01/26/21 16:05 Procalcitonin Stat Troponin I Stat 01/26/21 17:03 CKMB Panel (CK + CKMB) Stat Sodium Chloride (Normal Saline 0.9%) 1,000 mls @ 125 mls/hr IV CONT ABE Last Admin: 01/26/21 13:31 Dose: 125 mls/hr Documented by: VINICIUS Discontinued Medications Acetaminophen (Acetaminophen 325 Mg Tablet) 650 mg PO NOW ONE Stop: 01/26/21 12:14 Last Admin: 01/26/21 12:30 Dose: 650 mg Documented by: VIRAL Sodium Chloride (Normal Saline 0.9%) 1,000 mls @ 1,000 mls/hr IV BOLUS ONE Stop: 01/26/21 13:10 Last Admin: 01/26/21 12:49 Dose: Not Given Documented by: VIRAL Azithromycin 500 mg/ Dextrose 250 mls @ 250 mls/hr IV NOW ONE Stop: 01/26/21 13:06 Last Admin: 01/26/21 14:08 Dose: Not Given Documented by: VINICIUS Metronidazole (Flagyl) 500 mg in 100 mls @ 100 mls/hr IV NOW ONE Stop: 01/26/21 14:39 Last Infusion: 01/26/21 17:19 Dose: 0 mls/hr Documented by: Admin: 01/26/21 16:03 Dose: 100 mls/hr Documented by: VINICIUS Levofloxacin (Levaquin) 750 mg in 150 mls @ 100 mls/hr IV NOW ONE Stop: 01/26/21 15:09 Last Infusion: 01/26/21 16:00 Dose: 0 mls/hr Documented by: Admin: 01/26/21 14:17 Dose: 100 mls/hr Documented by: VINICIUS Vital Signs Vital signs: Vital Signs - 8 hr 01/26/21 11:35 01/26/21 12:09 01/26/21 12:15 Temperature 101.3 F H Pulse Rate 83 79 80 Respiratory Rate 18 Blood Pressure 131/63 Pulse Oximetry 93 93 93 01/26/21 12:30 01/26/21 12:31 01/26/21 12:45 Temperature 101.5 F H Pulse Rate 88 81 80 Respiratory Rate Blood Pressure 146/65 H Pulse Oximetry 85 L 94 94 01/26/21 13:12 01/26/21 13:15 01/26/21 13:30 Temperature Pulse Rate 79 78 79 Respiratory Rate Blood Pressure 134/62 Pulse Oximetry 95 96 93 01/26/21 13:45 01/26/21 14:00 01/26/21 14:01 Temperature Pulse Rate 75 77 80 Respiratory Rate 22 22 23 Blood Pressure 172/74 H Pulse Oximetry 94 94 88 L 01/26/21 14:15 01/26/21 14:30 01/26/21 14:31 Temperature Pulse Rate 76 70 70 Respiratory Rate 25 H 18 16 Blood Pressure 118/60 Pulse Oximetry 98 97 98 01/26/21 15:00 01/26/21 15:30 01/26/21 15:35 Temperature 98.5 F Pulse Rate 69 73 Respiratory Rate 16 19 Blood Pressure 129/63 109/59 L Pulse Oximetry 97 97 Medical Decision Making Lab Data Lab results reviewed: Yes I reviewed the patient's lab results. Result diagrams: 01/26/21 12:40 01/26/21 11:40 Labs: Lab Results 01/26/21 01/26/21 01/26/21 Range/Units 11:40 11:40 11:40 WBC (4.5-11.0) X10^3/uL RBC (4.5-5.9) X10^6/uL Hgb (13.5-17.5) g/dL Hct (41-53) % MCV (80-100) fL MCH (26-34) PG MCHC (30-36) % RDW (11.6-14.8) % Plt Count (150-400) X10^3/uL Neut % (Auto) Lymph % (Auto) [place] % (Auto) Eos % (Auto) Baso % (Auto) Lymph # (Auto) [place] # (Auto) Baso # (Auto) Total Counted Seg Neutrophils % (38-70) % Band Neutrophils % (3-7) % Lymphocytes % (Manual) (25-45) % Monocytes % (Manual) (2-11) % Eosinophils % (Manual) (2-4) % Basophils % (Manual) (0-1) % Neutrophils # (Manual) (9683-4928) /uL RBC Morphology Anisocytosis PT 14.4 H (10.1-12.7) SECONDS INR 1.3 (0.9-1.3) APTT 36 (26.4-36.2) SECONDS Sodium 137 (137-145) mmol/L Potassium 3.7 (3.4-5.1) mmol/L Chloride 98 (98-107) mmol/L Carbon Dioxide 33 H (22-32) mmol/L BUN 31 H (9-20) mg/dL Creatinine 1.20 (0.66-1.25) mg/dL Estimated GFR 58.1 L (>60) mL/min BUN/Creatinine Ratio 25.8 H (6-22) Glucose 157 H (80-110) mg/dL Lactate (0.7-2.1) mmol/L Calcium 8.6 (8.4-10.2) mg/dL Total Bilirubin 2.4 H (0.2-1.3) mg/dL AST 29 (17-59) IU/L ALT 18 (<50) IU/L Alkaline Phosphatase 50 (38-126) U/L Total Creatine Kinase (55-170) U/L CK-MB (CK-2) (<2.37) ng/mL CK-MB (CK-2) Rel Index (1.5-5.0) % Troponin I (0.01-0.034) ng/mL Total Protein 6.8 (6.3-8.2) g/dL Albumin 4.1 (3.5-5.0) g/dL Globulin 2.7 (1.7-4.1) g/dL Albumin/Globulin Ratio 1.5 (1.0-2.8) Lipase < 10 L (23-300) U/L Procalcitonin 2.90 H (<0.5) ng/mL TSH (0.47-4.68) uIU/mL Urine Color Urine Appearance Urine pH (4.5-8.0) Ur Specific [place] (1.000-1.035) Urine Protein (Negative) Urine Glucose (UA) (Negative) g/dL Urine Ketones (NEGATIVE) Urine Occult Blood (Negative) Urine Nitrate (Negative) Urine Bilirubin (NEGATIVE) Urine Urobilinogen (0.2) E.U./dL Ur Leukocyte Esterase (NEGATIVE) Urine RBC (0-5/HPF) Urine WBC (0-5/HPF) Urine Bacteria (None) Ur Culture Indicated? Chlamy pneumoniae PCR (Not Detect) Adenovirus (PCR) (Not Detect) B. pertussis DNA (PCR) (Not Detecte) B.parapertussis DNA PCR (Not Detecte) Coronavirus OC43 (PCR) (Not Detect) Coronavirus HKU1 (PCR) (Not Detect) Coronavirus 229E (PCR) (Not Detect) SARS-CoV-2 (PCR) Negative (Negative) Coronavirus NL63 (PCR) (Not Detect) Human Metapneumovir PCR (Not Detect) Influenza Type A (PCR) (Not Detect) Influenza Type B (PCR) (Not Detect) M. pneumoniae (PCR) (Not Detect) Parainfluenza 1 (PCR) (Not Detect) Parainfluenza 2 (PCR) (Not Detect) Parainfluenza 3 (PCR) (Not Detect) Parainfluenza 4 (PCR) (Not Detect) RSV (PCR) (Not Detect) Entero/Rhino (PCR) (Not Detect) 01/26/21 01/26/21 01/26/21 Range/Units 11:40 11:40 11:40 WBC (4.5-11.0) X10^3/uL RBC (4.5-5.9) X10^6/uL Hgb (13.5-17.5) g/dL Hct (41-53) % MCV (80-100) fL MCH (26-34) PG MCHC (30-36) % RDW (11.6-14.8) % Plt Count (150-400) X10^3/uL Neut % (Auto) Lymph % (Auto) [place] % (Auto) Eos % (Auto) Baso % (Auto) Lymph # (Auto) [place] # (Auto) Baso # (Auto) Total Counted Seg Neutrophils % (38-70) % Band Neutrophils % (3-7) % Lymphocytes % (Manual) (25-45) % Monocytes % (Manual) (2-11) % Eosinophils % (Manual) (2-4) % Basophils % (Manual) (0-1) % Neutrophils # (Manual) (0598-2659) /uL RBC Morphology Anisocytosis PT (10.1-12.7) SECONDS INR (0.9-1.3) APTT (26.4-36.2) SECONDS Sodium (137-145) mmol/L Potassium (3.4-5.1) mmol/L Chloride (98-107) mmol/L Carbon Dioxide (22-32) mmol/L BUN (9-20) mg/dL Creatinine (0.66-1.25) mg/dL Estimated GFR (>60) mL/min BUN/Creatinine Ratio (6-22) Glucose (80-110) mg/dL Lactate 1.5 (0.7-2.1) mmol/L Calcium (8.4-10.2) mg/dL Total Bilirubin (0.2-1.3) mg/dL AST (17-59) IU/L ALT (<50) IU/L Alkaline Phosphatase (38-126) U/L Total Creatine Kinase 234 H (55-170) U/L CK-MB (CK-2) 1.12 (<2.37) ng/mL CK-MB (CK-2) Rel Index 0.5 L (1.5-5.0) % Troponin I 0.055 H (0.01-0.034) ng/mL Total Protein (6.3-8.2) g/dL Albumin (3.5-5.0) g/dL Globulin (1.7-4.1) g/dL Albumin/Globulin Ratio (1.0-2.8) Lipase (23-300) U/L Procalcitonin (<0.5) ng/mL TSH 1.93 (0.47-4.68) uIU/mL Urine Color Urine Appearance Urine pH (4.5-8.0) Ur Specific [place] (1.000-1.035) Urine Protein (Negative) Urine Glucose (UA) (Negative) g/dL Urine Ketones (NEGATIVE) Urine Occult Blood (Negative) Urine Nitrate (Negative) Urine Bilirubin (NEGATIVE) Urine Urobilinogen (0.2) E.U./dL Ur Leukocyte Esterase (NEGATIVE) Urine RBC (0-5/HPF) Urine WBC (0-5/HPF) Urine Bacteria (None) Ur Culture Indicated? Chlamy pneumoniae PCR (Not Detect) Adenovirus (PCR) (Not Detect) B. pertussis DNA (PCR) (Not Detecte) B.parapertussis DNA PCR (Not Detecte) Coronavirus OC43 (PCR) (Not Detect) Coronavirus HKU1 (PCR) (Not Detect) Coronavirus 229E (PCR) (Not Detect) SARS-CoV-2 (PCR) (Negative) Coronavirus NL63 (PCR) (Not Detect) Human Metapneumovir PCR (Not Detect) Influenza Type A (PCR) (Not Detect) Influenza Type B (PCR) (Not Detect) M. pneumoniae (PCR) (Not Detect) Parainfluenza 1 (PCR) (Not Detect) Parainfluenza 2 (PCR) (Not Detect) Parainfluenza 3 (PCR) (Not Detect) Parainfluenza 4 (PCR) (Not Detect) RSV (PCR) (Not Detect) Entero/Rhino (PCR) (Not Detect) 01/26/21 01/26/2121 Range/Units 12:40 13:35 13:56 WBC 25.8 H (4.5-11.0) X10^3/uL RBC 4.13 L (4.5-5.9) X10^6/uL Hgb 12.3 L (13.5-17.5) g/dL Hct 36.7 L (41-53) % MCV 88.8 (80-100) fL MCH 29.8 (26-34) PG MCHC 33.6 (30-36) % RDW 14.4 (11.6-14.8) % Plt Count 139 L (150-400) X10^3/uL Neut % (Auto) Not Reportable Lymph % (Auto) Not Reportable [place] % (Auto) Not Reportable Eos % (Auto) Not Reportable Baso % (Auto) Not Reportable Lymph # (Auto) Not Reportable [place] # (Auto) Not Reportable Baso # (Auto) Not Reportable Total Counted 100 Seg Neutrophils % 83.0 H (38-70) % Band Neutrophils % 5.0 (3-7) % Lymphocytes % (Manual) 5.0 L (25-45) % Monocytes % (Manual) 7.0 (2-11) % Eosinophils % (Manual) 0.0 L (2-4) % Basophils % (Manual) 0.0 (0-1) % Neutrophils # (Manual) 78906 H (1701-4675) /uL RBC Morphology See below Anisocytosis 1+ H PT (10.1-12.7) SECONDS INR (0.9-1.3) APTT (26.4-36.2) SECONDS Sodium (137-145) mmol/L Potassium (3.4-5.1) mmol/L Chloride (98-107) mmol/L Carbon Dioxide (22-32) mmol/L BUN (9-20) mg/dL Creatinine (0.66-1.25) mg/dL Estimated GFR (>60) mL/min BUN/Creatinine Ratio (6-22) Glucose (80-110) mg/dL Lactate (0.7-2.1) mmol/L Calcium (8.4-10.2) mg/dL Total Bilirubin (0.2-1.3) mg/dL AST (17-59) IU/L ALT (<50) IU/L Alkaline Phosphatase (38-126) U/L Total Creatine Kinase (55-170) U/L CK-MB (CK-2) (<2.37) ng/mL CK-MB (CK-2) Rel Index (1.5-5.0) % Troponin I (0.01-0.034) ng/mL Total Protein (6.3-8.2) g/dL Albumin (3.5-5.0) g/dL Globulin (1.7-4.1) g/dL Albumin/Globulin Ratio (1.0-2.8) Lipase (23-300) U/L Procalcitonin (<0.5) ng/mL TSH (0.47-4.68) uIU/mL Urine Color [place] Urine Appearance Cloudy Urine pH 6.5 (4.5-8.0) Ur Specific [place] <=1.005 (1.000-1.035) Urine Protein 2+ H (Negative) Urine Glucose (UA) Negative (Negative) g/dL Urine Ketones Negative (NEGATIVE) Urine Occult Blood 3+ H (Negative) Urine Nitrate Positive H (Negative) Urine Bilirubin Negative (NEGATIVE) Urine Urobilinogen 1.0 (0.2) E.U./dL Ur Leukocyte Esterase Trace H (NEGATIVE) Urine RBC 10-30/hpf H (0-5/HPF) Urine WBC 5-10/hpf H (0-5/HPF) Urine Bacteria None seen (None) Ur Culture Indicated? Culture not indicate Chlamy pneumoniae PCR Not detected (Not Detect) Adenovirus (PCR) Not detected (Not Detect) B. pertussis DNA (PCR) Not detected (Not Detecte) B.parapertussis DNA PCR Not detected (Not Detecte) Coronavirus OC43 (PCR) Not detected (Not Detect) Coronavirus HKU1 (PCR) Not detected (Not Detect) Coronavirus 229E (PCR) Not detected (Not Detect) SARS-CoV-2 (PCR) Not detected (Negative) Coronavirus NL63 (PCR) Not detected (Not Detect) Human Metapneumovir PCR Not detected (Not Detect) Influenza Type A (PCR) Not detected (Not Detect) Influenza Type B (PCR) Not detected (Not Detect) M. pneumoniae (PCR) Not detected (Not Detect) Parainfluenza 1 (PCR) Not detected (Not Detect) Parainfluenza 2 (PCR) Not detected (Not Detect) Parainfluenza 3 (PCR) Not detected (Not Detect) Parainfluenza 4 (PCR) Not detected (Not Detect) RSV (PCR) Not detected (Not Detect) Entero/Rhino (PCR) Not detected (Not Detect) 01/26/21 01/26/21 Range/Units 16:05 16:05 WBC (4.5-11.0) X10^3/uL RBC (4.5-5.9) X10^6/uL Hgb (13.5-17.5) g/dL Hct (41-53) % MCV (80-100) fL MCH (26-34) PG MCHC (30-36) % RDW (11.6-14.8) % Plt Count (150-400) X10^3/uL Neut % (Auto) Lymph % (Auto) [place] % (Auto) Eos % (Auto) Baso % (Auto) Lymph # (Auto) [place] # (Auto) Baso # (Auto) Total Counted Seg Neutrophils % (38-70) % Band Neutrophils % (3-7) % Lymphocytes % (Manual) (25-45) % Monocytes % (Manual) (2-11) % Eosinophils % (Manual) (2-4) % Basophils % (Manual) (0-1) % Neutrophils # (Manual) (4697-4124) /uL RBC Morphology Anisocytosis PT (10.1-12.7) SECONDS INR (0.9-1.3) APTT (26.4-36.2) SECONDS Sodium (137-145) mmol/L Potassium (3.4-5.1) mmol/L Chloride (98-107) mmol/L Carbon Dioxide (22-32) mmol/L BUN (9-20) mg/dL Creatinine (0.66-1.25) mg/dL Estimated GFR (>60) mL/min BUN/Creatinine Ratio (6-22) Glucose (80-110) mg/dL Lactate (0.7-2.1) mmol/L Calcium (8.4-10.2) mg/dL Total Bilirubin (0.2-1.3) mg/dL AST (17-59) IU/L ALT (<50) IU/L Alkaline Phosphatase (38-126) U/L Total Creatine Kinase (55-170) U/L CK-MB (CK-2) (<2.37) ng/mL CK-MB (CK-2) Rel Index (1.5-5.0) % Troponin I 0.047 H (0.01-0.034) ng/mL Total Protein (6.3-8.2) g/dL Albumin (3.5-5.0) g/dL Globulin (1.7-4.1) g/dL Albumin/Globulin Ratio (1.0-2.8) Lipase (23-300) U/L Procalcitonin 2.59 H (<0.5) ng/mL TSH (0.47-4.68) uIU/mL Urine Color Urine Appearance Urine pH (4.5-8.0) Ur Specific [place] (1.000-1.035) Urine Protein (Negative) Urine Glucose (UA) (Negative) g/dL Urine Ketones (NEGATIVE) Urine Occult Blood (Negative) Urine Nitrate (Negative) Urine Bilirubin (NEGATIVE) Urine Urobilinogen (0.2) E.U./dL Ur Leukocyte Esterase (NEGATIVE) Urine RBC (0-5/HPF) Urine WBC (0-5/HPF) Urine Bacteria (None) Ur Culture Indicated? Chlamy pneumoniae PCR (Not Detect) Adenovirus (PCR) (Not Detect) B. pertussis DNA (PCR) (Not Detecte) B.parapertussis DNA PCR (Not Detecte) Coronavirus OC43 (PCR) (Not Detect) Coronavirus HKU1 (PCR) (Not Detect) Coronavirus 229E (PCR) (Not Detect) SARS-CoV-2 (PCR) (Negative) Coronavirus NL63 (PCR) (Not Detect) Human Metapneumovir PCR (Not Detect) Influenza Type A (PCR) (Not Detect) Influenza Type B (PCR) (Not Detect) M. pneumoniae (PCR) (Not Detect) Parainfluenza 1 (PCR) (Not Detect) Parainfluenza 2 (PCR) (Not Detect) Parainfluenza 3 (PCR) (Not Detect) Parainfluenza 4 (PCR) (Not Detect) RSV (PCR) (Not Detect) Entero/Rhino (PCR) (Not Detect) Imaging Data Chest x-ray: Radiologist's Impression: [address] [address] XRay Report Signed Patient: Alpesh Menendez MR#: [id number] : 1940 Acct:[id number] Age/Sex: 80 / M Date of Service: 01/26/21 Loc: ED Accession Number: [id number] ?? Procedure: XR chest 1V Ordering Provider: Cory Gaona D.O. PROCEDURE:? XR CHEST 1V ? INDICATIONS:? suspected sepsis ? TECHNIQUE:? One view of the chest was acquired.? ? COMPARISON:? [facility], , CHEST 1 VIEW, 12/19/2016, 18:22. ? FINDINGS:? ? Surgical changes and devices:? Surgical clips in the region of the thyroid gland. ? Lungs and pleura:? Low lung volumes.? Bibasilar atelectatic changes, chronic.? Patchy left lateral mid lung opacity, nonspecific. ? Mediastinum:? Mediastinal contours appear normal.? Heart size is normal.? ? Bones and chest wall:? No suspicious bony lesions.? Overlying soft tissues appear unremarkable.? Degenerative change in the right shoulder. ? IMPRESSION:? 1. New left lateral mid lung patchy opacity is nonspecific.? Possible underlying pneumonia superimposed on scarring and atelectatic changes could be considered.? ? ? Dictated by: Cristal Ambrosio M.D. on 01/26/2021 at 12:48 ? ? Approved by: Cristal Ambrosio M.D. on 01/26/2021 at 12:51? CT scan - abdomen/pelvis: Radiologist's Impression: Launch?Image [address] [address] [address] Scan Report Signed Patient: Alpesh Menendez MR#: [id number] : 1940 Acct:[id number] Age/Sex: 80 / M Date of Service: 01/26/21 Loc: ED Accession Number: [id number] ?? Procedure: CT abdomen pelvis w con Ordering Provider: Cory Gaona D.O. PROCEDURE:? CT ABDOMEN PELVIS W CON ? INDICATIONS:? Fever, abdominal pain, diarrhea ? TECHNIQUE:? After the administration of intravenous contrast, axial sections acquired from the lung bases to the pubic symphysis.? Coronal and sagittal reformats were performed.? For radiation dose reduction, the following was used:? automated exposure control, adjustment of mA and/or kV according to patient size.? ? COMPARISON:? [facility], CT, ABDOMEN/PELVIS WITH CONTRAST, 01/14/2017, 16:42. ? FINDINGS: ? Lower thorax:? Scarring noted at both lung bases similar prior.? Left basilar sub pulmonary blebs now measures 5.5 cm, previously 3.2 cm? Heart size normal.? No hiatal hernia. ? Liver:? Normal in size and attenuation. No contour deformity present.? Coarse right hepatic calcification is stable from the prior. ? Biliary system:? No calcified cholelithiasis or pericholecystic inflammation. No intra or extrahepatic bile duct dilatation. ? Pancreas:? Pancreatic small 6 cystic structures in the pancreatic tail have increased in size from the prior.? Largest measures 1.8 cm, previously 1.3 cm.? No pancreatic main ductal dilatation or inflammatory change ? Spleen:? Normal in size and density. ? Adrenals:? Normal morphology and density. ? Reproductive system:? Prostate is enlarged measuring 5 x 6.7 cm.? Bladder wall thickening probably reflects an element of bladder outlet obstruction.? ? Urinary system:? Normal renal size and attenuation.? Small bilateral renal cysts cortical cysts are slightly larger than the prior exam, now measuring up to 1.5 cm on the left.? No renal calculi, hydronephrosis, or solid mass present.? Urinary bladder unremarkable. ? Gastrointestinal system:? The stomach appears unremarkable.? Multiple diverticula arise from the sigmoid colon without evidence of diverticulitis. ? There is wall thickening and suggestion of inflammatory change in the distal sigmoid Atherosclerotic calcification in the abdominal aorta noted without evidence of aneurysm. ? Appendix:? No findings to suggest acute appendicitis. ? Peritoneal spaces:? No mesenteric or retroperitoneal adenopathy.? No free air.? No free fluid.? ? Vasculature:? The IVC, aorta and iliac vasculature are unremarkable. ? Abdominal wall:? Bilateral inguinal hernias as well as periumbilical hernia contains fat without bowel involvement.? Inguinal hernias are slightly larger than the prior exam. ? Musculoskeletal:? Normal bone mineralization.? Degenerative disc disease and arthropathy noted in lower lumbar spine.? No acute fractures.? ? IMPRESSION: ? 1. Wall thickening and mild inflammatory change in the distal sigmoid may reflect diverticulitis.? Consider follow-up colonoscopy when patient condition improves to exclude underlying colon cancer ? 2. Small pancreatic cysts have enlarged in the interval, suspicious for IPMN ? 3. Prostatic hypertrophy, bilateral inguinal and periumbilical hernias containing fat, advanced degenerative disc disease and arthropathy. ? ? ? Approved by: Sb Garcia M.D. on 01/26/2021 at 12:30? CT scan - head: Radiologist's Impression: [address] [address] [address] Scan Report Signed Patient: Alpesh Menendez MR#: [id number] : 1940 Acct:[id number] Age/Sex: 80 / M Date of Service: 01/26/21 Loc: ED Accession Number: [id number] ?? Procedure: CT head/brain wo con Ordering Provider: Cory Gaona D.O. PROCEDURE:? CT HEAD/BRAIN WO CON ? INDICATIONS:? Confusion after fall ? TECHNIQUE:? Noncontrast 4.5 mm thick angled axial sections acquired from the foramen magnum to the vertex, with coronal and sagittal reformats.? For radiation dose reduction, the following was used:? automated exposure control, adjustment of mA and/or kV according to patient size.? ? COMPARISON:? None. ? FINDINGS: ? Cerebrum, Cerebellum and Brainstem:? Moderate cerebral and cerebellar volume loss as well as moderate multifocal hypoattenuation in the deep and subcortical white matter present.? No acute hemorrhage or mass effect.? Dick-white distinction is preserved throughout the exam.? Basal cisterns and foramen magnum are clear. ? Ventricles:? Appropriate in size and position given the amount of cerebral atrophy.? No evidence of hydrocephalus. ? Skull Base:? The bony sella, pituitary gland and infundibulum are unremarkable.? Clivus and craniovertebral relationships are appropriate.? Visualized portions of external auditory canals and tympanic cavities are within normal limits. ? Calvarium and Scalp:? No scalp soft tissue swelling.? The underlying calvarium is intact without skull fracture or lytic lesion. ? Paranasal Sinuses:? Unremarkable as visualized.? No mucosal thickening or retention cyst noted. ? Mastoids:? Unremarkable as visualized.? No mastoid effusion present. ? Other:? Bilateral intraocular lens replacements noted.? Debris in the left external auditory canal(s) can be correlated with direct visualization? Atherosclerotic calcification in the cavernous portions of the distal internal carotid arteries are noted. ? ? IMPRESSION:? ? 1. Atrophy and chronic ischemic change without acute hemorrhage or mass effect ? ? ? Approved by: Sb Garcia M.D. on 01/26/2021 at 12:42? ECG Data Attestation: I personally reviewed and interpreted this ECG as follows: Interpretation: Sinus rhythm Ventricular rate is 76 First-degree AV block pr interval of 230 milliseconds LVH Normal axis No ST T wave changes MDM Narrative Medical decision making narrative: 80-year-old male. Confused per family at bedside. Patient's chest x-ray initially was concerned for pneumonia although he has not had a cough. He was febrile does have leukocytosis and does have an elevated procalcitonin. CT scan his abdomen pelvis is consistent with diverticulitis. He was started on Levaquin and Flagyl. These medications should treat a pneumonia and also his GI findings. His urinalysis then resulted is nitrite positive which could potentially be another source of infection. Levaquin should cover this infection as well. Blood cultures were obtained. Patient was never hypotensive. He was not given the 30 cc/kilogram of fluids because of his lack of hypotension. Also had a normal lactate. Discussed the case with Dr. Sanabria who is patient's primary doctor who will admit for further evaluation and treatment. I did discuss the need for admission with the patient and family bedside. They expressed understanding and agreement. Discharge Plan Departure Patient Disposition: Admitted As Inpatient Clinical Impression: Altered mental status, Diverticulitis, Pneumonia, Urinary tract infection Admit Date/Time: 01/26/21 17:10 Admit Provider: Annetta Sanabria
[2021-01-26 12:30] LABS: Alanine Aminotransferase 18 IU/L (<50); Albumin 4.1 g/dL (3.5-5.0); Albumin Globulin Ratio 1.5 (1.0-2.8); Alkaline Phosphatase 50 U/L (38-126); Aspartate Aminotransferase 29 IU/L (17-59); BUN Creatinine Ratio 25.8 (6-22); Bilirubin Total 2.4 mg/dL (0.2-1.3); Blood Urea Nitrogen 31 mg/dL (9-20); Calcium 8.6 mg/dL (8.4-10.2); Carbon Dioxide 33 mmol/L (22-32); Chloride 98 mmol/L (98-107); Estimated Glomerular Filt Rate 58.1 mL/min (>60); Globulin 2.7 g/dL (1.7-4.1); Glucose 157 mg/dL (80-110); HEMOLYSIS < 15 (0-50); INR 1.3 (0.9-1.3); Lactate (Lactic Acid) 1.5 mmol/L (0.7-2.1); Potassium 3.7 mmol/L (3.4-5.1); Prothrombin Time 14.4 SECONDS (10.1-12.7); Sodium 137 mmol/L (137-145); Total Protein 6.8 g/dL (6.3-8.2)
[2021-01-26] MEDS: ACETAMINOPHEN 325 MG TABLET 650 MG PO (12:30)
[2021-01-26 12:32] LABS: PTT Partial Thromboplastin Tim 36 SECONDS (26.4-36.2)
[2021-01-26 12:39] LABS: Lipase < 10 U/L (23-300)
[2021-01-26 12:50] LABS: COVID19 -Nasal RAPID Negative (Negative)
--- NOTE | 2021-01-26 12:55 | DI.CT.S_ITS ---
PROCEDURE: CT ABDOMEN PELVIS W CON INDICATIONS: Fever, abdominal pain, diarrhea TECHNIQUE: After the administration of intravenous contrast, axial sections acquired from the lung bases to the pubic symphysis. Coronal and sagittal reformats were performed. For radiation dose reduction, the following was used: automated exposure control, adjustment of mA and/or kV according to patient size. COMPARISON: [facility], CT, ABDOMEN/PELVIS WITH CONTRAST, 01/14/2017, 16:42. FINDINGS: Lower thorax: Scarring noted at both lung bases similar prior. Left basilar sub pulmonary blebs now measures 5.5 cm, previously 3.2 cm Heart size normal. No hiatal hernia. Liver: Normal in size and attenuation. No contour deformity present. Coarse right hepatic calcification is stable from the prior. Biliary system: No calcified cholelithiasis or pericholecystic inflammation. No intra or extrahepatic bile duct dilatation. Pancreas: Pancreatic small 6 cystic structures in the pancreatic tail have increased in size from the prior. Largest measures 1.8 cm, previously 1.3 cm. No pancreatic main ductal dilatation or inflammatory change Spleen: Normal in size and density. Adrenals: Normal morphology and density. Reproductive system: Prostate is enlarged measuring 5 x 6.7 cm. Bladder wall thickening probably reflects an element of bladder outlet obstruction. Urinary system: Normal renal size and attenuation. Small bilateral renal cysts cortical cysts are slightly larger than the prior exam, now measuring up to 1.5 cm on the left. No renal calculi, hydronephrosis, or solid mass present. Urinary bladder unremarkable. Gastrointestinal system: The stomach appears unremarkable. Multiple diverticula arise from the sigmoid colon without evidence of diverticulitis. There is wall thickening and suggestion of inflammatory change in the distal sigmoid Atherosclerotic calcification in the abdominal aorta noted without evidence of aneurysm. Appendix: No findings to suggest acute appendicitis. Peritoneal spaces: No mesenteric or retroperitoneal adenopathy. No free air. No free fluid. Vasculature: The IVC, aorta and iliac vasculature are unremarkable. Abdominal wall: Bilateral inguinal hernias as well as periumbilical hernia contains fat without bowel involvement. Inguinal hernias are slightly larger than the prior exam. Musculoskeletal: Normal bone mineralization. Degenerative disc disease and arthropathy noted in lower lumbar spine. No acute fractures. IMPRESSION: 1. Wall thickening and mild inflammatory change in the distal sigmoid may reflect diverticulitis. Consider follow-up colonoscopy when patient condition improves to exclude underlying colon cancer 2. Small pancreatic cysts have enlarged in the interval, suspicious for IPMN 3. Prostatic hypertrophy, bilateral inguinal and periumbilical hernias containing fat, advanced degenerative disc disease and arthropathy. Approved by: Sb Garcia M.D. on 01/26/2021 at 12:30
[2021-01-26 13:12] LABS: Creatine Kinase 234 U/L (55-170)
[2021-01-26 13:25] LABS: Hematocrit 36.7 % (41-53); Hemoglobin 12.3 g/dL (13.5-17.5); Mean Corpuscular HGB Conc 33.6 % (30-36); Mean Corpuscular Hemoglobin 29.8 PG (26-34); Mean Corpuscular Volume 88.8 fL (80-100); Platelet Count 139 X10^3/uL (150-400); Red Blood Cell Count 4.13 X10^6/uL (4.5-5.9); Red Cell Distribution Width 14.4 % (11.6-14.8); White Blood Cell Count 25.8 X10^3/uL (4.5-11.0)
[2021-01-26 13:25] LABS: Troponin I 0.055 ng/mL (0.01-0.034)
[2021-01-26 13:27] LABS: Add Manual Diff / Slide Review YES
[2021-01-26 13:28] LABS: CKMB % Relative Index 0.5 % (1.5-5.0); Creatine Kinase MB 1.12 ng/mL (<2.37)
[2021-01-26] MEDS: SODIUM CHLORIDE 0.9% 1,000 ML 125 ML IV (13:31)
[2021-01-26 13:44] LABS: Thyroid Stimulating Hormone 1.93 uIU/mL (0.47-4.68)
[2021-01-26 13:45] LABS: Neutrophils Absolute Manual 22704 /uL (3000-5900); Total Cells Counted 100
[2021-01-26 13:47] LABS: Anisocytosis 1+
[2021-01-26] MEDS: levoFLOXacin 750 MG/150 ML PIGGYBACK 100 MG IV (14:17)
--- NOTE | 2021-01-26 14:18 | PC.NURSE ---
condom cath placed on patient after straight cath. .
[2021-01-26 14:55] LABS: Adenovirus Not Detected (Not Detect); B. parapertussis Not Detected (Not Detecte); Bordetella pertussis Not Detected (Not Detecte); Chlamydophila pneumoniae Not Detected (Not Detect); Coronavirus 229E Not Detected (Not Detect); Coronavirus HKU1 Not Detected (Not Detect); Coronavirus NL 63 Not Detected (Not Detect); Coronavirus OC43 Not Detected (Not Detect); Human Metapneumovirus Not Detected (Not Detect); Human Rhinovirus/Enterovirus Not Detected (Not Detect); Influenza A Not Detected (Not Detect); Influenza B Not Detected (Not Detect); Mycoplasma pneumoniae Not Detected (Not Detect); Parainfluenza Virus 1 Not Detected (Not Detect); Parainfluenza Virus 2 Not Detected (Not Detect); Parainfluenza Virus 3 Not Detected (Not Detect); Parainfluenza Virus 4 Not Detected (Not Detect); Respiratory Syncytial Virus Not Detected (Not Detect); SARS- CoV-2 Not Detected (Not Detecte)
[2021-01-26 15:06] LABS: Appearance Urine UA CLOUDY; Bilirubin Urine UA NEGATIVE (NEGATIVE); Color Urine UA ORANGE; Glucose Urine UA NEGATIVE (Negative); Ketones Urine UA NEGATIVE (NEGATIVE); Leukocyte Esterase Urine UA TRACE (NEGATIVE); Nitrite Urine UA POSITIVE (Negative); Occult Blood Urine UA 3+ (Negative); Protein Urine UA 2+ (Negative); Specific Gravity Urine UA <=1.005 (1.000-1.035); pH Urine UA 6.5 (4.5-8.0)
[2021-01-26 15:32] LABS: RBC Urine 10-30/HPF (0-5/HPF); WBC Urine 5-10/HPF (0-5/HPF)
[2021-01-26 15:33] LABS: Bacteria Urine None Seen
[2021-01-26] MEDS: metroNIDAZOLE 500 MG/100 ML PIGGYBACK 100 MG IV ×2 (16:03→19:37)
[2021-01-26 16:56] LABS: Troponin I 0.047 ng/mL (0.01-0.034)
[2021-01-26 17:01] LABS: Procalcitonin 2.59 ng/mL (<0.5)
[2021-01-26 18:59] LABS: Creatine Kinase 237 U/L (55-170)
--- NOTE | 2021-01-26 18:59 | PC.NURSE ---
pt started with hematuria and now is bleeding with small clots. aware.
[2021-01-26 19:14] LABS: CKMB % Relative Index 0.5 % (1.5-5.0); Creatine Kinase MB 1.29 ng/mL (<2.37)
--- NOTE | 2021-01-26 19:19 | P.HP_ITS ---
History of Present Illness History of Present Illness Date Patient Seen: 01/26/21 Time Patient Seen: 19:19 Date of Onset of Symptoms: 01/25/21 Chief complaint: Confusion Narrative: This is a very pleasant 80-year-old male who is well known to me. He had episode in January 24 where he simply over did it he a Kavon cookies made Kavon cookies put up Kavon lights 8 a large amount and nuts, he is ill not and had spaghetti dinner with a large amount of alcohol. The next day he was in bed all day he had a fever of 102 during the day which then resolved and recurred today. He did not eat any food he refused his medications really did not drink much water he probably had 20 oz of water and 24. He was complaining of being achy all over and lots of burping but no GI symptoms. And early this morning he fell on his way back from the toilet and could not get up. He was delirious in [place] dizzy but no fever. They got him back in bed he was able to walk to the toilet again at 10:00 a.m. but his fever returned and they called our office and they were instructed to report to the emergency department. Past medical history: 1. Obstructive sleep apnea for which he is noncompliant 2. Ulcerative colitis for which is well controlled 3. Hypothyroidism 4. Hypertension 5. Hyperglycemia mild 6. BPH with urinary obstruction 7. Diverticulitis 8. History of pancreatic cyst 9. History of degenerative joint disease 10. History BPH of mild cognitive impairment. Sees Dr. Ng. [place] to be multifactorial 11. Left ventricular hypertrophy 12. Hearing loss 13. Psoriasis 14. Allergic rhinitis 15. 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 1992 thyroidectomy 2. Clavicle fracture 3. Tonsillectomy 4. Left knee arthroscopy 5. Melanoma surgery on his chest 6. Total knee replacement April of 2015 Patient History Medical History 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 Corneal abrasion Excessive daytime sleepiness Hypertension Hypothyroidism associated with surgical procedure Obstructive sleep apnea of adult PANCREATIC CYSTS Primary insomnia Rectal bleeding Restless legs syndrome (RLS) Snoring Family & Social History Social History: household members spouse lives independently Yes caregiver/support person No Safety & Behavioral: Feels Safe in Current Yes Environment Been Physically Hurt or No Threatened By a Person Tobacco & Substance use: Smoking Status Former smoker alcohol intake current Substance Use Type does not use Meds Home Medications and Allergies Home Medications Medication Instructions Recorded Confirmed Type lisinopril 20 1 tab PO QDAY #0 03/02/16 08/24/20 History mg-hydrochlorothiazide 12.5 mg tablet acetaminophen 325 mg tablet 650 mg PO Q4HP PRN #0 01/14/17 08/24/20 History clobetasol 0.05 % scalp solution 0.05 % TOPICAL DAILY #0 01/14/17 08/24/20 History hydrocortisone 100 mg/60 mL enema 100 mg RC HS PRN #0 01/14/17 08/24/20 History ipratropium bromide 42 mcg (0.06 1 spray INTRANASAL DAILY #0 01/14/17 08/24/20 History %) nasal spray metoprolol succinate 100 mg PO DAILY 10/04/17 08/24/20 History Multi Vitamin 1 tab PO DAILY 10/18/17 08/24/20 History Probiotic PO TID 10/18/17 08/24/20 History balsalazide 2,250 mg PO TID 10/18/17 08/24/20 History cholecalciferol (vitamin D3) 1,000 units PO DAILY 10/18/17 08/24/20 History iron 14 mg PO DAILY 10/18/17 08/24/20 History levothyroxine 150 mcg PO DAILY 10/18/17 08/24/20 History melatonin 5 mg PO BEDTIME PRN 10/18/17 08/24/20 History turmeric root extract 2,000 mg PO BID 10/18/17 08/24/20 History Respironics System One 60 Series #1 ea 11/13/18 08/24/20 History BIPAP triamcinolone acetonide 0.1 % 1 applic TOPICAL BID #30 g 08/24/20 08/24/20 Rx topical cream Allergies Allergy/AdvReac Type Severity Reaction Status Date / Time mesalamine [MESALAMINE] AdvReac Unknown FEVER Verified 08/24/20 11:46 Review of Systems Review of Systems Narrative: No change in weight. No reflux. No chest pain or shortness of breath palpitations or lightheadedness or dizziness. No recent syncope 12 point review of systems is otherwise negative other than mentioned in review of systems in HPI Cardiovascular Comments: Denies chest pain Respiratory Comments: No cough or shortness of breath Gastrointestinal Comments: No constipation or diarrhea Genitourinary Comments: Cloudy orange discolored urine Notice blood once he was in the ER after straight catheterization Is having pain with urination now because the blood clots but did not have previously Exam Vital Signs (past 8 hours): - 01/26/21 11:35 01/26/21 12:09 01/26/21 12:15 Temperature 101.3 F H Pulse Rate 83 79 80 Respiratory Rate 18 Blood Pressure 131/63 Pulse Oximetry 93 93 93 01/26/21 12:30 01/26/21 12:31 01/26/21 12:45 Temperature 101.5 F H Pulse Rate 88 81 80 Respiratory Rate Blood Pressure 146/65 H Pulse Oximetry 85 L 94 94 01/26/21 13:12 01/26/21 13:15 01/26/21 13:30 Temperature Pulse Rate 79 78 79 Respiratory Rate Blood Pressure 134/62 Pulse Oximetry 95 96 93 01/26/21 13:45 01/26/21 14:00 01/26/21 14:01 Temperature Pulse Rate 75 77 80 Respiratory Rate 22 22 23 Blood Pressure 172/74 H Pulse Oximetry 94 94 88 L 01/26/21 14:15 01/26/21 14:30 01/26/21 14:31 Temperature Pulse Rate 76 70 70 Respiratory Rate 25 H 18 16 Blood Pressure 118/60 Pulse Oximetry 98 97 98 01/26/21 15:00 01/26/21 15:30 01/26/21 15:35 Temperature 98.5 F Pulse Rate 69 73 Respiratory Rate 16 19 Blood Pressure 129/63 109/59 L Pulse Oximetry 97 97 01/26/21 16:00 01/26/21 16:30 01/26/21 17:00 Temperature Pulse Rate 71 68 70 Respiratory Rate 23 19 22 Blood Pressure 146/78 H 179/81 H 157/75 H Pulse Oximetry 97 96 98 01/26/21 17:30 01/26/21 17:31 01/26/21 18:00 Temperature Pulse Rate 66 67 71 Respiratory Rate 18 17 24 Blood Pressure 118/58 L 131/71 Pulse Oximetry 98 99 99 01/26/21 18:30 Temperature Pulse Rate 74 Respiratory Rate 28 H Blood Pressure 134/82 Pulse Oximetry 99 Oxygen Delivery Method Room Air Oxygen Flow Rate 2 Narrative Exam Narrative: Patient is alert and oriented to 3. He did know my name initially but then was able to repeat it. He appears slightly pale. He is in no apparent distress HEENT: Shows no mucosal membranes. He has slightly dry. Pupils equal round reactive to light Neck: Supple without adenopathy thyromegaly jugular venous distention or bruits Cor: Regular rate and rhythm with distant S1-S2 Chest: Clear to auscultation with no wheezes rhonchi or crackles but slightly diminished breath sounds in the bases Cor: Regular rate and rhythm with distant S1-S2 Abdomen: Positive bowel sounds, soft, nontender, nondistended, no hepatosplenomegaly Extremities: No edema pulses intact Neurologic exam is nonfocal other than some confusion but this is minimal Objective ECG Impression: Normal sinus rhythm with first-degree heart block but no acute changes. No ischemic changes Labs Result Diagrams: 01/26/21 12:40 01/26/21 11:40 Labs: Laboratory Results - last 24 hr 01/26/21 01/26/21 01/26/21 11:40 11:40 11:40 WBC RBC Hgb Hct MCV MCH MCHC RDW Plt Count Neut % (Auto) Lymph % (Auto) [place] % (Auto) Eos % (Auto) Baso % (Auto) Lymph # (Auto) [place] # (Auto) Baso # (Auto) Total Counted Seg Neutrophils % Band Neutrophils % Lymphocytes % (Manual) Monocytes % (Manual) Eosinophils % (Manual) Basophils % (Manual) Neutrophils # (Manual) RBC Morphology Anisocytosis PT 14.4 H INR 1.3 APTT 36 Sodium 137 Potassium 3.7 Chloride 98 Carbon Dioxide 33 H BUN 31 H Creatinine 1.20 Estimated GFR 58.1 L BUN/Creatinine Ratio 25.8 H Glucose 157 H Lactate Calcium 8.6 Total Bilirubin 2.4 H AST 29 ALT 18 Alkaline Phosphatase 50 Total Creatine Kinase CK-MB (CK-2) CK-MB (CK-2) Rel Index Troponin I Total Protein 6.8 Albumin 4.1 Globulin 2.7 Albumin/Globulin Ratio 1.5 Lipase < 10 L Procalcitonin 2.90 H TSH Urine Color Urine Appearance Urine pH Ur Specific [place] Urine Protein Urine Glucose (UA) Urine Ketones Urine Occult Blood Urine Nitrate Urine Bilirubin Urine Urobilinogen Ur Leukocyte Esterase Urine RBC Urine WBC Urine Bacteria Ur Culture Indicated? Chlamy pneumoniae PCR Adenovirus (PCR) B. pertussis DNA (PCR) B.parapertussis DNA PCR Coronavirus OC43 (PCR) Coronavirus HKU1 (PCR) Coronavirus 229E (PCR) SARS-CoV-2 (PCR) Negative Coronavirus NL63 (PCR) Human Metapneumovir PCR Influenza Type A (PCR) Influenza Type B (PCR) M. pneumoniae (PCR) Parainfluenza 1 (PCR) Parainfluenza 2 (PCR) Parainfluenza 3 (PCR) Parainfluenza 4 (PCR) RSV (PCR) Entero/Rhino (PCR) 01/26/21 01/26/21 01/26/21 11:40 11:40 11:40 WBC RBC Hgb Hct MCV MCH MCHC RDW Plt Count Neut % (Auto) Lymph % (Auto) [place] % (Auto) Eos % (Auto) Baso % (Auto) Lymph # (Auto) [place] # (Auto) Baso # (Auto) Total Counted Seg Neutrophils % Band Neutrophils % Lymphocytes % (Manual) Monocytes % (Manual) Eosinophils % (Manual) Basophils % (Manual) Neutrophils # (Manual) RBC Morphology Anisocytosis PT INR APTT Sodium Potassium Chloride Carbon Dioxide BUN Creatinine Estimated GFR BUN/Creatinine Ratio Glucose Lactate 1.5 Calcium Total Bilirubin AST ALT Alkaline Phosphatase Total Creatine Kinase 234 H CK-MB (CK-2) 1.12 CK-MB (CK-2) Rel Index 0.5 L Troponin I 0.055 H Total Protein Albumin Globulin Albumin/Globulin Ratio Lipase Procalcitonin TSH 1.93 Urine Color Urine Appearance Urine pH Ur Specific [place] Urine Protein Urine Glucose (UA) Urine Ketones Urine Occult Blood Urine Nitrate Urine Bilirubin Urine Urobilinogen Ur Leukocyte Esterase Urine RBC Urine WBC Urine Bacteria Ur Culture Indicated? Chlamy pneumoniae PCR Adenovirus (PCR) B. pertussis DNA (PCR) B.parapertussis DNA PCR Coronavirus OC43 (PCR) Coronavirus HKU1 (PCR) Coronavirus 229E (PCR) SARS-CoV-2 (PCR) Coronavirus NL63 (PCR) Human Metapneumovir PCR Influenza Type A (PCR) Influenza Type B (PCR) M. pneumoniae (PCR) Parainfluenza 1 (PCR) Parainfluenza 2 (PCR) Parainfluenza 3 (PCR) Parainfluenza 4 (PCR) RSV (PCR) Entero/Rhino (PCR) 01/26/21 01/26/21 01/26/21 12:40 13:35 13:56 WBC 25.8 H RBC 4.13 L Hgb 12.3 L Hct 36.7 L MCV 88.8 MCH 29.8 MCHC 33.6 RDW 14.4 Plt Count 139 L Neut % (Auto) Not Reportable Lymph % (Auto) Not Reportable [place] % (Auto) Not Reportable Eos % (Auto) Not Reportable Baso % (Auto) Not Reportable Lymph # (Auto) Not Reportable [place] # (Auto) Not Reportable Baso # (Auto) Not Reportable Total Counted 100 Seg Neutrophils % 83.0 H Band Neutrophils % 5.0 Lymphocytes % (Manual) 5.0 L Monocytes % (Manual) 7.0 Eosinophils % (Manual) 0.0 L Basophils % (Manual) 0.0 Neutrophils # (Manual) 71670 H RBC Morphology See below Anisocytosis 1+ H PT INR APTT Sodium Potassium Chloride Carbon Dioxide BUN Creatinine Estimated GFR BUN/Creatinine Ratio Glucose Lactate Calcium Total Bilirubin AST ALT Alkaline Phosphatase Total Creatine Kinase CK-MB (CK-2) CK-MB (CK-2) Rel Index Troponin I Total Protein Albumin Globulin Albumin/Globulin Ratio Lipase Procalcitonin TSH Urine Color [place] Urine Appearance Cloudy Urine pH 6.5 Ur Specific [place] <=1.005 Urine Protein 2+ H Urine Glucose (UA) Negative Urine Ketones Negative Urine Occult Blood 3+ H Urine Nitrate Positive H Urine Bilirubin Negative Urine Urobilinogen 1.0 Ur Leukocyte Esterase Trace H Urine RBC 10-30/hpf H Urine WBC 5-10/hpf H Urine Bacteria None seen Ur Culture Indicated? Culture not indicate Chlamy pneumoniae PCR Not detected Adenovirus (PCR) Not detected B. pertussis DNA (PCR) Not detected B.parapertussis DNA PCR Not detected Coronavirus OC43 (PCR) Not detected Coronavirus HKU1 (PCR) Not detected Coronavirus 229E (PCR) Not detected SARS-CoV-2 (PCR) Not detected Coronavirus NL63 (PCR) Not detected Human Metapneumovir PCR Not detected Influenza Type A (PCR) Not detected Influenza Type B (PCR) Not detected M. pneumoniae (PCR) Not detected Parainfluenza 1 (PCR) Not detected Parainfluenza 2 (PCR) Not detected Parainfluenza 3 (PCR) Not detected Parainfluenza 4 (PCR) Not detected RSV (PCR) Not detected Entero/Rhino (PCR) Not detected 01/26/21 01/26/21 01/26/21 16:05 16:05 16:05 WBC RBC Hgb Hct MCV MCH MCHC RDW Plt Count Neut % (Auto) Lymph % (Auto) [place] % (Auto) Eos % (Auto) Baso % (Auto) Lymph # (Auto) [place] # (Auto) Baso # (Auto) Total Counted Seg Neutrophils % Band Neutrophils % Lymphocytes % (Manual) Monocytes % (Manual) Eosinophils % (Manual) Basophils % (Manual) Neutrophils # (Manual) RBC Morphology Anisocytosis PT INR APTT Sodium Potassium Chloride Carbon Dioxide BUN Creatinine Estimated GFR BUN/Creatinine Ratio Glucose Lactate Calcium Total Bilirubin AST ALT Alkaline Phosphatase Total Creatine Kinase 237 H CK-MB (CK-2) 1.29 CK-MB (CK-2) Rel Index 0.5 L Troponin I 0.047 H Total Protein Albumin Globulin Albumin/Globulin Ratio Lipase Procalcitonin 2.59 H TSH Urine Color Urine Appearance Urine pH Ur Specific [place] Urine Protein Urine Glucose (UA) Urine Ketones Urine Occult Blood Urine Nitrate Urine Bilirubin Urine Urobilinogen Ur Leukocyte Esterase Urine RBC Urine WBC Urine Bacteria Ur Culture Indicated? Chlamy pneumoniae PCR Adenovirus (PCR) B. pertussis DNA (PCR) B.parapertussis DNA PCR Coronavirus OC43 (PCR) Coronavirus HKU1 (PCR) Coronavirus 229E (PCR) SARS-CoV-2 (PCR) Coronavirus NL63 (PCR) Human Metapneumovir PCR Influenza Type A (PCR) Influenza Type B (PCR) M. pneumoniae (PCR) Parainfluenza 1 (PCR) Parainfluenza 2 (PCR) Parainfluenza 3 (PCR) Parainfluenza 4 (PCR) RSV (PCR) Entero/Rhino (PCR) Assessment & Plan Assessment & Plan narrative: 70 minutes was spent with patient and discussing with the ER doc and nursing staff. Patient was evaluated in the emergency department where he was boarding and met with him and his son. 80-year-old male with confusion and poor p.o. intake presents to the emergency room for feeling poorly and was found to have a urinary tract infection with sepsis syndrome and probable diverticulitis as well as possible pneumonia. Patient was given IV Levaquin and metronidazole in the emergency department intravenously. He was given 1 L of IV fluid bolus and was feeling slightly better than when he presented. He then developed hematuria gross with some pain with urination. Patient denies urinary catheter at this time but we can place for comfort. Assessment 1. Sepsis syndrome. Will admit to the hospital for further treatment and monitoring. Due to his admitting diagnosis and comorbidities I expect him to be in the hospital vanc greater than 48 hours. Suspect urinary tract infection as a source. Less likely diverticulitis. This is in imaging or radiologic finding that does not fit with his clinical history and he does have a history of ulcerative colitis so this may be waited see the thickening in his colon on CT scan. In any event we will continue the Levaquin and the Flagyl to cover for diverticulitis as well. We will repeat labs in the morning we will give IV fluids and continue to monitor closely. We will treat pain as indicated. Assessment 2. Possible pneumonia verses mass Plan: Will reassess with chest x-ray possible CT scan pending his improvement. Assessment 3. History of ulcerative colitis without current symptoms Plan: Continue outpatient balsalazide. he has had a recent change his medication I think he is only taking 2 tablets daily. We will verify this with him Assessment 4. Intermediate elevation in troponin with mild increasing creatinine kinase with normal EKG and no clinical symptoms of coronary ischemia or acute OR. Plan: I suspect this is related to sepsis syndrome. I suspect this is troponemia related to this. We will put him on telemetry. We will recheck labs in the morning. Assessment 5. Hypothyroidism with normal TSH Plan: Continue outpatient thyroid medication Assessment 6. Hypertension did not take medications today Plan: Will restart medications. Code status is DNR COVID-19 Result date/Date tested (Pos, Neg/Pending): 01/26/21 Time Spent With Patient Critical Care time: I spent a total of [] minutes of critical care time on this patient's care today; this time is exclusive of procedural time.
[2021-01-26] MEDS: levoFLOXacin 500 MG/100 ML PIGGYBACK 100 MG IV (21:32)
[2021-01-26] MEDS: MELATONIN 3 MG TABLET 6 MG PO (21:33)
[2021-01-27] VITALS (14 sets, daily range): BP systolic 125–142; BP diastolic 60–76; PULSE 71–79; RESP 16–20; TEMP 36.3–37.9; O2SAT 91–96
[2021-01-27] MEDS: metroNIDAZOLE 500 MG/100 ML PIGGYBACK 100 MG IV ×3 (03:21→19:24)
[2021-01-27] MEDS: LEVOTHYROXINE 150 MCG TABLET PO (05:43)
[2021-01-27] MEDS: PANTOPRAZOLE DR 20 MG TABLET PO (05:43)
[2021-01-27 06:32] LABS: Add Manual Diff / Slide Review NO; Basophils Absolute Auto 200 /uL (0-100); Basophils Percent Auto 0.7 % (0-2); Eosinophils Absolute Auto 0 /uL (0-450); Eosinophils Percent Auto 0.1 % (2-4); Hematocrit 33.3 % (41-53); Hemoglobin 11.3 g/dL (13.5-17.5); Lymphocytes Absolute Auto 1000 /uL (1100-4500); Lymphocytes Percent Auto 4.3 % (25-40); Mean Corpuscular HGB Conc 34.1 % (30-36); Mean Corpuscular Hemoglobin 29.6 PG (26-34); Monocytes Absolute Auto 1400 /uL (0-900); Monocytes Percent Auto 5.9 % (3-14); Neutrophils Absolute Auto 21000 /uL (1500-7000); Platelet Count 114 X10^3/uL (150-400); Red Blood Cell Count 3.82 X10^6/uL (4.5-5.9); Red Cell Distribution Width 14.3 % (11.6-14.8); White Blood Cell Count 23.6 X10^3/uL (4.5-11.0)
[2021-01-27 06:40] LABS: Alanine Aminotransferase 15 IU/L (<50); Albumin Globulin Ratio 1.2 (1.0-2.8); Alkaline Phosphatase 42 U/L (38-126); Aspartate Aminotransferase 24 IU/L (17-59); BUN Creatinine Ratio 27.2 (6-22); Bilirubin Total 1.9 mg/dL (0.2-1.3); Blood Urea Nitrogen 28 mg/dL (9-20); Calcium 7.7 mg/dL (8.4-10.2); Carbon Dioxide 28 mmol/L (22-32); Chloride 103 mmol/L (98-107); Creatine Kinase 193 U/L (55-170); Estimated Glomerular Filt Rate > 60.0 mL/min (>60); Globulin 2.6 g/dL (1.7-4.1); Glucose 126 mg/dL (80-110); HEMOLYSIS < 15 (0-50); Potassium 3.1 mmol/L (3.4-5.1); Sodium 134 mmol/L (137-145); Total Protein 5.6 g/dL (6.3-8.2)
[2021-01-27 06:51] LABS: Troponin I 0.036 ng/mL (0.01-0.034)
[2021-01-27 06:55] LABS: CKMB % Relative Index 0.6 % (1.5-5.0); Creatine Kinase MB 1.16 ng/mL (<2.37)
--- NOTE | 2021-01-27 08:35 | P.PN_ITS ---
Subjective Subjective Date Patient Seen: 01/27/21 Time Patient Seen: 08:35 Interval history: Patient had uneventful night. Patient states he is feeling a little better. He feels less achy. He is having some left lower quadrant abdominal pain. He did have a liquid bowel movement with some blood. Not bright red blood. He is urinating now without as much pain. He denies any chest pain. He denies any shortness of breath. He denies any lightheadedness or dizziness. T-max 100.1? currently Twelve point review of systems is otherwise negative other than subjective Exam Vital Signs (past 8 hours): - 01/27/21 01:03 01/27/21 03:30 01/27/21 04:28 Temperature 100.1 F H Pulse Rate 79 76 Respiratory Rate 18 Blood Pressure 142/60 H Pulse Oximetry 96 96 96 Oxygen Delivery Method Nasal Cannula Oxygen Flow Rate 2 Narrative Exam Narrative: Patient is alert and cooperative in no apparent distress. He is oriented to person place and time. O2 sats on room air are in the mid 90s. T current is 100.1 Blood pressure 140/60 heart rate in the 70s HEENT: Unremarkable Neck: Supple without masses or thyromegaly. No jugular venous distension Chest: Clear to auscultation without wheezes rhonchi or crackles Cor: Regular rate and rhythm without any murmur Abdomen: Positive bowel sounds x4. He has mild left lower quadrant tenderness with no guarding or rebound. No masses Extremities: No edema, pulses intact, moves all extremities well Neurologic exam nonfocal Objective Labs Result Diagrams: 01/27/21 06:00 01/27/21 06:00 Labs: Laboratory Results - last 24 hr 01/26/21 01/26/21 01/26/21 11:40 11:40 11:40 WBC RBC Hgb Hct MCV MCH MCHC RDW Plt Count Neut % (Auto) Lymph % (Auto) [place] % (Auto) Eos % (Auto) Baso % (Auto) Neut # (Auto) Lymph # (Auto) [place] # (Auto) Eos # (Auto) Baso # (Auto) Total Counted Seg Neutrophils % Band Neutrophils % Lymphocytes % (Manual) Monocytes % (Manual) Eosinophils % (Manual) Basophils % (Manual) Neutrophils # (Manual) RBC Morphology Anisocytosis PT 14.4 H INR 1.3 APTT 36 Sodium 137 Potassium 3.7 Chloride 98 Carbon Dioxide 33 H BUN 31 H Creatinine 1.20 Estimated GFR 58.1 L BUN/Creatinine Ratio 25.8 H Glucose 157 H Lactate Calcium 8.6 Total Bilirubin 2.4 H AST 29 ALT 18 Alkaline Phosphatase 50 Total Creatine Kinase CK-MB (CK-2) CK-MB (CK-2) Rel Index Troponin I Total Protein 6.8 Albumin 4.1 Globulin 2.7 Albumin/Globulin Ratio 1.5 Lipase < 10 L Procalcitonin 2.90 H TSH Urine Color Urine Appearance Urine pH Ur Specific [place] Urine Protein Urine Glucose (UA) Urine Ketones Urine Occult Blood Urine Nitrate Urine Bilirubin Urine Urobilinogen Ur Leukocyte Esterase Urine RBC Urine WBC Urine Bacteria Ur Culture Indicated? Chlamy pneumoniae PCR Adenovirus (PCR) B. pertussis DNA (PCR) B.parapertussis DNA PCR Coronavirus OC43 (PCR) Coronavirus HKU1 (PCR) Coronavirus 229E (PCR) SARS-CoV-2 (PCR) Negative Coronavirus NL63 (PCR) Human Metapneumovir PCR Influenza Type A (PCR) Influenza Type B (PCR) M. pneumoniae (PCR) Parainfluenza 1 (PCR) Parainfluenza 2 (PCR) Parainfluenza 3 (PCR) Parainfluenza 4 (PCR) RSV (PCR) Entero/Rhino (PCR) 01/26/21 01/26/21 01/26/21 11:40 11:40 11:40 WBC RBC Hgb Hct MCV MCH MCHC RDW Plt Count Neut % (Auto) Lymph % (Auto) [place] % (Auto) Eos % (Auto) Baso % (Auto) Neut # (Auto) Lymph # (Auto) [place] # (Auto) Eos # (Auto) Baso # (Auto) Total Counted Seg Neutrophils % Band Neutrophils % Lymphocytes % (Manual) Monocytes % (Manual) Eosinophils % (Manual) Basophils % (Manual) Neutrophils # (Manual) RBC Morphology Anisocytosis PT INR APTT Sodium Potassium Chloride Carbon Dioxide BUN Creatinine Estimated GFR BUN/Creatinine Ratio Glucose Lactate 1.5 Calcium Total Bilirubin AST ALT Alkaline Phosphatase Total Creatine Kinase 234 H CK-MB (CK-2) 1.12 CK-MB (CK-2) Rel Index 0.5 L Troponin I 0.055 H Total Protein Albumin Globulin Albumin/Globulin Ratio Lipase Procalcitonin TSH 1.93 Urine Color Urine Appearance Urine pH Ur Specific [place] Urine Protein Urine Glucose (UA) Urine Ketones Urine Occult Blood Urine Nitrate Urine Bilirubin Urine Urobilinogen Ur Leukocyte Esterase Urine RBC Urine WBC Urine Bacteria Ur Culture Indicated? Chlamy pneumoniae PCR Adenovirus (PCR) B. pertussis DNA (PCR) B.parapertussis DNA PCR Coronavirus OC43 (PCR) Coronavirus HKU1 (PCR) Coronavirus 229E (PCR) SARS-CoV-2 (PCR) Coronavirus NL63 (PCR) Human Metapneumovir PCR Influenza Type A (PCR) Influenza Type B (PCR) M. pneumoniae (PCR) Parainfluenza 1 (PCR) Parainfluenza 2 (PCR) Parainfluenza 3 (PCR) Parainfluenza 4 (PCR) RSV (PCR) Entero/Rhino (PCR) 01/26/21 01/26/21 01/26/21 12:40 13:35 13:56 WBC 25.8 H RBC 4.13 L Hgb 12.3 L Hct 36.7 L MCV 88.8 MCH 29.8 MCHC 33.6 RDW 14.4 Plt Count 139 L Neut % (Auto) Not Reportable Lymph % (Auto) Not Reportable [place] % (Auto) Not Reportable Eos % (Auto) Not Reportable Baso % (Auto) Not Reportable Neut # (Auto) Lymph # (Auto) Not Reportable [place] # (Auto) Not Reportable Eos # (Auto) Baso # (Auto) Not Reportable Total Counted 100 Seg Neutrophils % 83.0 H Band Neutrophils % 5.0 Lymphocytes % (Manual) 5.0 L Monocytes % (Manual) 7.0 Eosinophils % (Manual) 0.0 L Basophils % (Manual) 0.0 Neutrophils # (Manual) 22934 H RBC Morphology See below Anisocytosis 1+ H PT INR APTT Sodium Potassium Chloride Carbon Dioxide BUN Creatinine Estimated GFR BUN/Creatinine Ratio Glucose Lactate Calcium Total Bilirubin AST ALT Alkaline Phosphatase Total Creatine Kinase CK-MB (CK-2) CK-MB (CK-2) Rel Index Troponin I Total Protein Albumin Globulin Albumin/Globulin Ratio Lipase Procalcitonin TSH Urine Color [place] Urine Appearance Cloudy Urine pH 6.5 Ur Specific [place] <=1.005 Urine Protein 2+ H Urine Glucose (UA) Negative Urine Ketones Negative Urine Occult Blood 3+ H Urine Nitrate Positive H Urine Bilirubin Negative Urine Urobilinogen 1.0 Ur Leukocyte Esterase Trace H Urine RBC 10-30/hpf H Urine WBC 5-10/hpf H Urine Bacteria None seen Ur Culture Indicated? Culture not indicate Chlamy pneumoniae PCR Not detected Adenovirus (PCR) Not detected B. pertussis DNA (PCR) Not detected B.parapertussis DNA PCR Not detected Coronavirus OC43 (PCR) Not detected Coronavirus HKU1 (PCR) Not detected Coronavirus 229E (PCR) Not detected SARS-CoV-2 (PCR) Not detected Coronavirus NL63 (PCR) Not detected Human Metapneumovir PCR Not detected Influenza Type A (PCR) Not detected Influenza Type B (PCR) Not detected M. pneumoniae (PCR) Not detected Parainfluenza 1 (PCR) Not detected Parainfluenza 2 (PCR) Not detected Parainfluenza 3 (PCR) Not detected Parainfluenza 4 (PCR) Not detected RSV (PCR) Not detected Entero/Rhino (PCR) Not detected 01/26/21 01/26/21 01/26/21 16:05 16:05 16:05 WBC RBC Hgb Hct MCV MCH MCHC RDW Plt Count Neut % (Auto) Lymph % (Auto) [place] % (Auto) Eos % (Auto) Baso % (Auto) Neut # (Auto) Lymph # (Auto) [place] # (Auto) Eos # (Auto) Baso # (Auto) Total Counted Seg Neutrophils % Band Neutrophils % Lymphocytes % (Manual) Monocytes % (Manual) Eosinophils % (Manual) Basophils % (Manual) Neutrophils # (Manual) RBC Morphology Anisocytosis PT INR APTT Sodium Potassium Chloride Carbon Dioxide BUN Creatinine Estimated GFR BUN/Creatinine Ratio Glucose Lactate Calcium Total Bilirubin AST ALT Alkaline Phosphatase Total Creatine Kinase 237 H CK-MB (CK-2) 1.29 CK-MB (CK-2) Rel Index 0.5 L Troponin I 0.047 H Total Protein Albumin Globulin Albumin/Globulin Ratio Lipase Procalcitonin 2.59 H TSH Urine Color Urine Appearance Urine pH Ur Specific [place] Urine Protein Urine Glucose (UA) Urine Ketones Urine Occult Blood Urine Nitrate Urine Bilirubin Urine Urobilinogen Ur Leukocyte Esterase Urine RBC Urine WBC Urine Bacteria Ur Culture Indicated? Chlamy pneumoniae PCR Adenovirus (PCR) B. pertussis DNA (PCR) B.parapertussis DNA PCR Coronavirus OC43 (PCR) Coronavirus HKU1 (PCR) Coronavirus 229E (PCR) SARS-CoV-2 (PCR) Coronavirus NL63 (PCR) Human Metapneumovir PCR Influenza Type A (PCR) Influenza Type B (PCR) M. pneumoniae (PCR) Parainfluenza 1 (PCR) Parainfluenza 2 (PCR) Parainfluenza 3 (PCR) Parainfluenza 4 (PCR) RSV (PCR) Entero/Rhino (PCR) 01/27/21 01/27/21 06:00 06:00 WBC 23.6 H RBC 3.82 L Hgb 11.3 L Hct 33.3 L MCV 87.0 MCH 29.6 MCHC 34.1 RDW 14.3 Plt Count 114 L Neut % (Auto) 89.0 H Lymph % (Auto) 4.3 L [place] % (Auto) 5.9 Eos % (Auto) 0.1 L Baso % (Auto) 0.7 Neut # (Auto) 82660 H Lymph # (Auto) 1000 L [place] # (Auto) 1400 H Eos # (Auto) 0 Baso # (Auto) 200 H Total Counted Seg Neutrophils % Band Neutrophils % Lymphocytes % (Manual) Monocytes % (Manual) Eosinophils % (Manual) Basophils % (Manual) Neutrophils # (Manual) RBC Morphology Anisocytosis PT INR APTT Sodium 134 L Potassium 3.1 L Chloride 103 Carbon Dioxide 28 BUN 28 H Creatinine 1.03 Estimated GFR > 60.0 BUN/Creatinine Ratio 27.2 H Glucose 126 H Lactate Calcium 7.7 L Total Bilirubin 1.9 H AST 24 ALT 15 Alkaline Phosphatase 42 Total Creatine Kinase 193 H CK-MB (CK-2) 1.16 CK-MB (CK-2) Rel Index 0.6 L Troponin I 0.036 H Total Protein 5.6 L Albumin 3.0 L Globulin 2.6 Albumin/Globulin Ratio 1.2 Lipase Procalcitonin TSH Urine Color Urine Appearance Urine pH Ur Specific [place] Urine Protein Urine Glucose (UA) Urine Ketones Urine Occult Blood Urine Nitrate Urine Bilirubin Urine Urobilinogen Ur Leukocyte Esterase Urine RBC Urine WBC Urine Bacteria Ur Culture Indicated? Chlamy pneumoniae PCR Adenovirus (PCR) B. pertussis DNA (PCR) B.parapertussis DNA PCR Coronavirus OC43 (PCR) Coronavirus HKU1 (PCR) Coronavirus 229E (PCR) SARS-CoV-2 (PCR) Coronavirus NL63 (PCR) Human Metapneumovir PCR Influenza Type A (PCR) Influenza Type B (PCR) M. pneumoniae (PCR) Parainfluenza 1 (PCR) Parainfluenza 2 (PCR) Parainfluenza 3 (PCR) Parainfluenza 4 (PCR) RSV (PCR) Entero/Rhino (PCR) [facility] Medical History 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 Corneal abrasion Excessive daytime sleepiness Hypertension Hypothyroidism associated with surgical procedure Obstructive sleep apnea of adult PANCREATIC CYSTS Primary insomnia Rectal bleeding Restless legs syndrome (RLS) Snoring Social History marital status: details: to Mariann number of children: 1 household members: spouse lives independently: Yes caregiver/support person: No pets and animals: No occupational status: previously employed current occupational exposures/hazards: No 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 80-year-old male admitted with mental status changes thought to be secondary to sepsis syndrome with UTI and probable diverticulitis with also possible pneumonia. Patient clinically is improved. His white blood cell count still markedly elevated but improved. He is still with fever. He is not requiring oxygen supplemental Plan: Continue IV Levaquin and Flagyl to treat UTI and diverticulitis. Assessment 2. Acute dehydration due to febrile illness improved Plan: Continue with IV fluids at 125 cc an hour Assessment 3. Hypokalemia Plan: Will give oral potassium and will give potassium and IV fluids Assessment 4. Hypertension well controlled Plan: Continue outpatient medications Assessment 5. Patient with ulcerative colitis. Is now looking like probably what they see on the CT scan is a diverticulitis. He also ate a large amount and not prior to developing his symptoms. Plan: Will continue on his outpatient [place], will continue treating with IV antibiotics. Will continue monitoring in CBC, electrolytes Assessment 6. Mental status changes worsened with acute febrile illness. No other etiologies. Plan: Continue with IV antibiotics and continue to monitor Assessment 7. Deconditioning with diffuse degenerative joint disease Plan: PT eval and treat Assessment 8. Disposition Plan: Patient will require at least 24 to 48 more hours more of inpatient treatment. I anticipate that he will be able to be discharged to home. Assessment 9. Hypothyroidism Plan: Continue with same thyroid medication. Assessment 10. troponemia No evidence clinically of acute coronary syndrome or angina or non STEMI. His CK and troponin is trending down. Plan: Will continue to follow Time Spent With Patient Critical Care time: I spent a total of [] minutes of critical care time on this patient's care today; this time is exclusive of procedural time. Quality VTE Deep Vein Thrombosis/Pulmonary Embolism Present on Admission: No
[2021-01-27] MEDS: CHOLECALCIFEROL (VITAMIN D3) 1,000 UNIT TABLET 1000 UNIT PO (09:17)
[2021-01-27] MEDS: MULTIVITAMIN 1 TABLET 1 TAB PO (09:17)
[2021-01-27] MEDS: hydroCHLOROthiazide 25 MG TABLET 12.5 MG PO (09:17)
[2021-01-27] MEDS: ENOXAPARIN 30 MG/0.3 ML SYRINGE SUBCUT (09:18)
[2021-01-27] MEDS: lisinopriL 20 MG TABLET PO (09:18)
[2021-01-27] MEDS: POTASSIUM CHLORIDE 20 MEQ TAB 40 MEQ PO (09:26)
[2021-01-27] MEDS: KCL 20 MEQ IN NS 1,000 ML 125 MEQ IV ×2 (09:38→17:40)
[2021-01-27] MEDS: ACETAMINOPHEN 325 MG TABLET 650 MG PO ×2 (09:43→20:57)
--- NOTE | 2021-01-27 10:17 | PT.IIE ---
Medical History (Last Reviewed 01/26/21 @ 19:19 by Annetta Sanabria MD) 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 Corneal abrasion Excessive daytime sleepiness Hypertension Hypothyroidism associated with surgical procedure Obstructive sleep apnea of adult PANCREATIC CYSTS Primary insomnia Rectal bleeding Restless legs syndrome (RLS) Snoring Physical Therapy Inpatient Evaluation/Re-Eval M1 PT/OT-IP Prior Functional Status Start: 01/27/21 12:31 Freq: NEEDED Status: Active Protocol: Document 01/27/21 10:17 AB (Rec: 01/27/21 12:47 AB [id number]) Medical Review Prior Functional Status Medical History Reviewed Yes Communication HUGHES; able to make needs known Mobility and Gait pt stated that he is modified independent with all mobilities and ambulation without AD indoors but uses 1 ski pole for outdoor ambulation; h/o falls with 3 falls for the last 2 months Social History Household Members spouse Living Arrangements House Number of Floors (Floors) Two Floors Number of Stairs To Enter/Railing? has an elevator to get to 2nd level 1 step to enter the house Home Environment Walk in Shower,Tub/Shower, Built-In Shower Seat Home Equipment Hand Held Shower,Grab Bars In Shower M2 PT-IP Current Condition Start: 01/27/21 12:31 Freq: NEEDED Status: Active Protocol: Document 01/27/21 10:17 AB (Rec: 01/27/21 12:47 AB [email or web address]) Physical Therapy Current Condition Current Condition Evaluation Date 01/27/21 Treatment Diagnosis UTI; difficulty in walking Onset Date 01/26/21 M3 PT-IP Subjective Start: 01/27/21 12:31 Freq: NEEDED Status: Active Protocol: Document 01/27/21 10:17 AB (Rec: 01/27/21 12:47 AB [email or web address]) Subjective Physical Therapy Visit Type Type Initial Evaluation Visit Start Time 10:17 Visit Stop Time 10:55 Total Visit Minutes 38 Number of PLANT GENERAL MANAGER Visits 0 Physical Therapy Visit Comments Patient Comments pt agreed to do PT; spouse in room with pt and tends to answer/speak for pt Therapy Pain Assessment Pain When Pain Assessed At Rest Pain Present Pain Present Pain Reported Location Left Back Scale Used pain scale not stated M4 PT-IP Mobility and Gait Start: 01/27/21 12:31 Freq: NEEDED Status: Active Protocol: Document 01/27/21 10:17 AB (Rec: 01/27/21 12:47 AB [id number]) PT-Bed Mobility Assessment Supine to Sit Supine to Sit Standby Assistance Sit to Supine Sit to Supine Standby Assistance PT-Transfer Assessment Sit to and From Stand Sit to and from Stand Contact Guard Assistance,1 Person Assistance,Use of Upper Extremities Equipment Transfer Assistive Device Gait Belt,Front Wheeled Walker Orthotic/Prosthetic Devices or Brace: No Transfers Transfer Destination Bed,Chair Transfer Technique Stand Step Pivot Transfer Ability Level of Assist Contact Guard Assistance,1 Person Assistance,Use of Upper Extremities Comments Mobility Comments pt sitting on chair. Pt is HUGHES but able to respond and follow instructions but spouse tends to speak for pt. pt completed sit to stand from chair CGA and ambulated in room using FWW CGA ~ 40 ft. ambulated to EOB and completed sit<>supine sBA. transferred back to chair using fWW CGA. No c/o dizziness/ lightheadedness during mobility and with stable BP 125-131/76-79. positioned pt on the chair. call light and table placed within reach. informed spouse regarding DME needs and stated that she will call the soroptomist. Gait Assessment Gait Gait Assistance Required: Contact Guard Assist Distance (Feet) 40 Able to Maintain Weight Bearing Status Yes During Gait Assistive Devices Assistive Device Gait Belt,Front Wheeled Walker Orthotic/Prosthetic Devices or Brace: No Gait Deviations General Gait Pattern Antalgic,Decreased Stride Length,Decreased Feet Clearance,Step-to Gait Factors Limiting Gait Function Factors Limiting Gait Function Decreased Activity Tolerance, Decreased Strength,Pain,Poor Balance PT-Balance Assessment Sitting Balance and Reactions Static Sitting Balance Ability Good Dynamic Sitting Balance Ability Good Standing Balance and Reactions Static Standing Balance Ability Fair Dynamic Standing Balance Ability Fair Device Used FWW M5 PT-IP Objective Assessments Start: 01/27/21 12:31 Freq: NEEDED Status: Active Protocol: Document 01/27/21 10:17 AB (Rec: 01/27/21 12:47 AB [email or web address]) Orientation Orientation/Cognition Level of Alertness Alert Orientation Name,Situation Language Function Ability Hard of Hearing Safety Awareness Decreased Safety Awareness Memory Description Short Term Impaired Gross Range of Motion Lower Extremity ROM Assessment Within Functional Limits Strength Lower Extremity Strength Hip 4-/5 Knee 4-/5 Sensation Assessment Sensation Gross Sensation WNL Muscle Tone Muscle Tone WNL Yes M6 PT-IP Treatment Start: 01/27/21 12:31 Freq: NEEDED Status: Active Protocol: Document 01/27/21 10:17 AB (Rec: 01/27/21 12:47 AB [email or web address]) Physical Therapy Treatment Education Education Provided Safety M7 PT-IP Assessment and Plan Start: 01/27/21 12:31 Freq: NEEDED Status: Active Protocol: Document 01/27/21 10:17 AB (Rec: 01/27/21 12:47 AB [email or web address]) PT Summary Assessment and Plan Potential Rehabilitation Potential Good Status of Condition at Evaluation Stable Summary Impairments Pain,Strength,Balance, Coordination,Cognition,Bed Mobility,Transfers,Gait, Activity Tolerance Assessment Summary pt requiring CGA with mobility using FWW. pt will have his spouse to assist him at home. will continue to assess progress for safe d/c plan. spouse made aware of pt's DME needs. Goals Bed Mobility Goal Independent Transfer Goal Independent,Front Wheeled Walker Gait Goal Independent,Front Wheel Walker Gait Distance 200 Other Goals improve ambulation without AD 100 ft SBA up/down 1 step using FWW/ without AD SBA Days to Meet Goals 5 Frequency of Treatment Frequency Of Treatment Once a Day Treatment Plan Physical Therapy Treatment Plan Bed Mobility Training,Transfer Training,Gait Training, Therapeutic Exercise,Balance Retraining,Discharge Planning, Hot or Cold Pack,Neuromuscular Re-ed,Coordination Retraining Precautions Other Precautions falls Recommendations To Nursing Amount of Assist Needed 1 Person Assist Discharge Recommendations PT Discharge Recommendations Home with Assistance, Outpatient PT Equipment Needed for Home Before FWW Discharge Transportation Needs at Discharge Private Vehicle
--- NOTE | 2021-01-27 11:15 | CM.DANOTE ---
DCP: Case received, EMR reviewed and met with patient. Spouse, Mariann was als at bedside.Introduced self and role. Was able to obtain information regarding patient's baseline activity at home prior to hospitalization. DCP assessment completed with information currently available. Patient is an 80 year old male who admitted yesterday afternoon to the care of the hospitalist team. PCP: Dr. Sanabria. Payer: confirmed: Medicare/[employer]. Patient came to the hospital via ambulance secondary to confusion and a recent fall. Patient was noted to have a fever. According to notes, patient had over did it, getting ready for [place]. He had also had some alcohol. He had noted some confusion the next day, according to family, as well. He had fallen once over the last 24 hours. Patient was diagnosed with sepsis syndrome with UTI as the source, as well as possible pneumonia. He also has history of ulcerative colitis. Met with patient and spouse in the room. Patient was laying in bed, able to answer some questions, and spouse also intervened. Confirmed that they both reside here in [place]. He has had some falls at home, according to spouse. At his baseline, he has been independent, driving, and uses walking sticks for longer walks. They also have a son that lives in the area. Mentioned home health therapy at home, and spouse is interested. He had P.T. orders, will look at their recommendations. P: DCP to continue to follow. Will see how he does with P.T. Will need to have provider sign face to face if home health is recommended. Iona Desai RN/[employer] Discharge Planning/Care Management Discharge Assessment Start: 01/27/21 11:12 Freq: Status: Active Protocol: Document 01/27/21 11:13 (Rec: 01/27/21 11:15 [id number]) Discharge Planning Assessment Assigned Customer Services Manager Iona Desai RN/[employer] Advance Directives? Yes Advance Directives on File No History Provided By Patient,Medical Record Prior Living Arrangements House Household Members spouse Type of transporation used prior to Drives own vehicle admit Independent with ADL's Yes Is patient alert and oriented? Yes Needs Assistance With Home Chores / Shopping DME Already Rented / Owned Other Comment Uses walking sticks for walking out doors. Patient/Family Preference Home with Home Health Comment Will see how patient does with P.T. Barriers to Discharge No Discharge Plan Home Transportation Arrangement Family Referrals Initiated Other Additional Comment Have not yet sent referrals, will see how patient does with P.T. If patient plan is home with home health No : Has signed face to face form been completed? If patient plan is SNF: Has PASSR been No completed? Whiteboard Updated in Patient Room with Yes name and ext. # of Customer Services Manager Review Status In Process Next Review Type Continued Stay Review
[2021-01-27] MEDS: BALSALAZIDE 2250 MG 2250 EACH PO ×3 (11:25→20:58)
[2021-01-27] MEDS: SODIUM CHLORIDE 0.9% 500 ML 1000 ML IV (17:40)
[2021-01-27] MEDS: levoFLOXacin 500 MG/100 ML PIGGYBACK 100 MG IV (20:57)
[2021-01-27] MEDS: MELATONIN 3 MG TABLET 6 MG PO (20:58)
[2021-01-27 21:43] LABS: Enterococcus species Not Detected (Not Detect); Listeria monocytogenes Not Detected (Not Detect); Staphylococcus species Not Detected (Not Detect); Streptococcus species Not Detected (Not Detect)
[2021-01-27 21:44] LABS: Acinetobacter baumannii Not Detected (Not Detect); Candida albicans Not Detected (Not Detect); Candida glabrata Not Detected (Not Detect); E. coli Not Detected (Not Detect); Enterobacter cloacae complex Not Detected (Not Detect); Enterobacteriaceae species Not Detected (Not Detect); Haemophilus influenzae Not Detected (Not Detect); Neisseria meningitidis Not Detected (Not Detect); Proteus species Not Detected (Not Detect); Pseudomonas aeruginosa Not Detected (Not Detect); Serratia marcescens Not Detected (Not Detect); Streptococcus agalactiae (Gr B Not Detected (Not Detect); Streptococcus pneumonia Not Detected (Not Detect); Streptococcus pyogenes (Gr A) Not Detected (Not Detect)
[2021-01-27 21:45] LABS: Candida krusei Not Detected (Not Detect); Candida parapsilosis Not Detected (Not Detect); Candida tropicalis Not Detected (Not Detect)
[2021-01-28] VITALS (11 sets, daily range): BP systolic 116–148; BP diastolic 48–84; PULSE 60–76; RESP 16–18; TEMP 36.7–37.2; O2SAT 94–96
[2021-01-28] MEDS: metroNIDAZOLE 500 MG/100 ML PIGGYBACK 100 MG IV ×3 (04:22→20:24)
[2021-01-28] MEDS: LEVOTHYROXINE 150 MCG TABLET PO (06:31)
[2021-01-28] MEDS: PANTOPRAZOLE DR 20 MG TABLET PO (06:32)
[2021-01-28] MEDS: KCL 20 MEQ IN NS 1,000 ML 125 MEQ IV (08:09)
[2021-01-28] MEDS: MULTIVITAMIN 1 TABLET 1 TAB PO (08:27)
[2021-01-28] MEDS: HYDROCODONE/ACET 5/325 TABLET 1 TAB PO ×2 (08:27→16:07)
[2021-01-28] MEDS: IPRATROPIUM 0.06% NASAL 15 ML 1 SPRAY NASAL (08:28)
[2021-01-28] MEDS: lisinopriL 20 MG TABLET PO (08:28)
[2021-01-28] MEDS: CHOLECALCIFEROL (VITAMIN D3) 1,000 UNIT TABLET 1000 UNIT PO (08:28)
[2021-01-28] MEDS: hydroCHLOROthiazide 25 MG TABLET 12.5 MG PO (08:28)
[2021-01-28] MEDS: ENOXAPARIN 40 MG/0.4 ML SYRINGE SUBCUT (08:29)
[2021-01-28] MEDS: BALSALAZIDE 2250 MG 2250 EACH PO ×2 (08:29→20:24)
[2021-01-28 08:52] LABS: Add Manual Diff / Slide Review NO; Basophils Absolute Auto 100 /uL (0-100); Basophils Percent Auto 0.4 % (0-2); Eosinophils Absolute Auto 200 /uL (0-450); Eosinophils Percent Auto 1.2 % (2-4); Hematocrit 33.7 % (41-53); Hemoglobin 11.3 g/dL (13.5-17.5); Lymphocytes Absolute Auto 1000 /uL (1100-4500); Lymphocytes Percent Auto 8.1 % (25-40); Mean Corpuscular HGB Conc 33.4 % (30-36); Mean Corpuscular Hemoglobin 29.4 PG (26-34); Mean Corpuscular Volume 87.8 fL (80-100); Monocytes Absolute Auto 900 /uL (0-900); Monocytes Percent Auto 7.4 % (3-14); Neutrophils Absolute Auto 10100 /uL (1500-7000); Neutrophils Percent Auto 82.9 % (50-75); Platelet Count 129 X10^3/uL (150-400); Red Blood Cell Count 3.84 X10^6/uL (4.5-5.9); Red Cell Distribution Width 14.5 % (11.6-14.8); White Blood Cell Count 12.1 X10^3/uL (4.5-11.0)
[2021-01-28 09:02] LABS: Alanine Aminotransferase 16 IU/L (<50); Albumin 3.2 g/dL (3.5-5.0); Albumin Globulin Ratio 1.3 (1.0-2.8); Alkaline Phosphatase 44 U/L (38-126); Aspartate Aminotransferase 24 IU/L (17-59); BUN Creatinine Ratio 21.4 (6-22); Bilirubin Total 0.7 mg/dL (0.2-1.3); Blood Urea Nitrogen 21 mg/dL (9-20); Calcium 7.6 mg/dL (8.4-10.2); Carbon Dioxide 29 mmol/L (22-32); Chloride 104 mmol/L (98-107); Estimated Glomerular Filt Rate > 60.0 mL/min (>60); Globulin 2.5 g/dL (1.7-4.1); Glucose 120 mg/dL (80-110); HEMOLYSIS 20 (0-50); Potassium 3.4 mmol/L (3.4-5.1); Sodium 134 mmol/L (137-145); Total Protein 5.7 g/dL (6.3-8.2)
--- NOTE | 2021-01-28 09:44 | DI.RAD.S_ITS ---
PROCEDURE: XR CHEST 2V INDICATIONS: wheezing TECHNIQUE: 2 views of the chest were acquired. COMPARISON: [facility], CT, CT ABDOMEN PELVIS W CON, 01/26/2021, 12:54. [facility], CR, XR CHEST 1V, 01/26/2021, 11:54. [facility], CR, CHEST 1 VIEW, 12/19/2016, 18:22. FINDINGS: Surgical changes and devices: Multiple clips in the lower neck/sternum. Lungs and pleura: Mild bibasilar streaky opacity. No pleural effusions or pneumothorax. Mediastinum: Mediastinal contours are unchanged. Heart size is unchanged. Bones and chest wall: No suspicious bony abnormalities. Soft tissues appear unremarkable. IMPRESSION: Bibasilar streaky opacity. Favor atelectasis. Dictated by: Jann Lowery M.D. on 01/28/2021 at 10:05 Approved by: Jann Lowery M.D. on 01/28/2021 at 10:07
--- NOTE | 2021-01-28 09:44 | DI.RAD.S_ITS ---
PROCEDURE: XR LUMBAR SPINE 2-3V INDICATIONS: pain, fall TECHNIQUE: 3 views of the lumbar spine were acquired. COMPARISON: None. FINDINGS: Bones: 5 [id number] vertebrae are present. There is mild convex left curvature of the lumbar spine. There is grade 1 L4-L5 degenerative anterolisthesis. There is trace L1-L2, L2-L3 and L3-L4 degenerative retrolisthesis. No vertebral body compression fractures. No suspicious bony lesions. Severe L5-S1 degenerative disc disease. Moderate L1-L2, L2-L3, L3-L4 and L4-L5 degenerative disc disease. Severe L4-L5 and L5-S1 facet arthropathy. Moderate L1-L2, L2-L3 and L3-L4 facet arthropathy. Soft tissues: Overlying bowel gas pattern is normal. No suspicious soft tissue calcifications. IMPRESSION: 1. Multilevel degenerative disc disease. 2. Multilevel facet arthropathy. 3. No fracture. No acute osseous lesion. If symptoms and/or clinical suspicion for pathology persists, evaluation with MRI should be considered for further assessment. Dictated by: Janie Velazquez MD, PhD on 01/28/2021 at 10:15 Approved by: Janie Velazquez MD, PhD on 01/28/2021 at 10:16
--- NOTE | 2021-01-28 09:49 | PM.PN.1 ---
Subjective Subjective Date Patient Seen: 01/28/21 Time Patient Seen: 09:57 Interval history: Patient is having a lot of back pain today. He had fallen and I do not think he is had x-ray of this area. It is nonradicular. He had a small formed stool this morning. He had 3 large diarrheal stools yesterday that were bloody. He is no longer having pain with urination no have no longer having blood but is having difficulty urinating. He is taking in oral fluids adequately and oral intake. He denies any chest pain or shortness of breath. He denies any current abdominal pain. His is present. She has many questions. Twelve point review of systems is otherwise negative other than subjective. Exam Vital Signs (past 8 hours): - 01/28/21 03:09 01/28/21 04:00 01/28/21 08:00 Temperature 98.2 F 98.2 F Pulse Rate 73 76 Respiratory Rate 16 18 Blood Pressure 116/77 148/84 H Pulse Oximetry 94 96 94 01/28/21 08:28 Temperature Pulse Rate 74 Respiratory Rate Blood Pressure 131/64 Pulse Oximetry Oxygen Delivery Method Room Air Oxygen Flow Rate 0 Narrative Exam Narrative: Patient is alert and oriented no apparent distress Neck: Supple without adenopathy or jugular venous distension Chest: Shows diffuse expiratory wheezes posteriorly. No rhonchi or crackles Cor: Regular rate and rhythm with distant S1-S2 Abdomen positive bowel sounds, soft, nontender, nondistended, no hepatosplenomegaly Extremities: No edema, pulses intact Back. He has spasm and tenderness of the lumbar muscles left paravertebral. Some vertebral body tenderness. Neurologic exam is nonfocal. Objective Labs Result Diagrams: 01/28/21 08:30 01/28/21 08:30 Labs: Laboratory Results - last 24 hr 01/26/21 01/28/21 01/28/21 12:03 08:30 08:30 WBC 12.1 H RBC 3.84 L Hgb 11.3 L Hct 33.7 L MCV 87.8 MCH 29.4 MCHC 33.4 RDW 14.5 Plt Count 129 L Neut % (Auto) 82.9 H Lymph % (Auto) 8.1 L [place] % (Auto) 7.4 Eos % (Auto) 1.2 L Baso % (Auto) 0.4 Neut # (Auto) 31909 H Lymph # (Auto) 1000 L [place] # (Auto) 900 Eos # (Auto) 200 Baso # (Auto) 100 Sodium 134 L Potassium 3.4 Chloride 104 Carbon Dioxide 29 BUN 21 H Creatinine 0.98 Estimated GFR > 60.0 BUN/Creatinine Ratio 21.4 Glucose 120 H Calcium 7.6 L Total Bilirubin 0.7 AST 24 ALT 16 Alkaline Phosphatase 44 Total Protein 5.7 L Albumin 3.2 L Globulin 2.5 Albumin/Globulin Ratio 1.3 A. baumannii (PCR) Not detected Nadine albicans (PCR) Not detected C. glabrata (PCR) Not detected C. krusei (PCR) Not detected C. parapsilosis (PCR) Not detected C. tropicalis (PCR) Not detected Enterobacteriac sp PCR Not detected E. cloacae complex PCR Not detected Enterococcus sp PCR Not detected E. coli (PCR) Not detected H. influenzae (PCR) Not detected Klebsiella oxytoca PCR Not detected Klebsiella pneumoniae Not detected List. monocytogenes PCR Not detected N. meningitidis (PCR) Not detected Proteus species (PCR) Not detected Serratia marcescens PCR Not detected Staphylococcus sp PCR Not detected Staph aureus (PCR) Not detected mecA-Methicil Res Gene Not Reportable Streptococcus sp PCR Not detected Group A Strep (PCR) Not detected Strep agalactiae (PCR) Not detected Strep pneumoniae (PCR) Not detected P. aeruginosa (PCR) Not detected Uday/B-Vanco Res Genes Not Reportable KPC-Carbap Res Gene PCR Not Reportable [facility] Medical History 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 Corneal abrasion Excessive daytime sleepiness Hypertension Hypothyroidism associated with surgical procedure Obstructive sleep apnea of adult PANCREATIC CYSTS Primary insomnia Rectal bleeding Restless legs syndrome (RLS) Snoring Social History marital status: details: shavonne Waite number of children: 1 household members: spouse lives independently: Yes caregiver/support person: No pets and animals: No occupational status: previously employed current occupational exposures/hazards: No 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 80-year-old male admitted with mental status changes thought to be secondary to sepsis. Patient with evidence of end organ dysfunction as evidence by metabolic encephalopathy, leukocytosis, fever, acute myocardial injury and thrombocytopenia. Suspect secondary to UTI and probable diverticulitis with also possible pneumonia.? Patient clinically is improved.? His white blood cell count isimproved.? Fever is decreasing He is not requiring oxygen supplemental. He does have 1 pediatric bottle with Gram-positive cocci. We are waiting for final results. I suspect this is a contaminant. His urine culture shows E coli pansensitive. We will continue with IV Levaquin and Flagyl and would like at least 5 days of IV antibiotics prior to switching to oral on sending him home. Plan:? Continue IV Levaquin and Flagyl to treat UTI and diverticulitis. Assessment 2. Acute dehydration due to febrile illness improved. Patient is taking better p.o. intake now Plan: DC IV fluids. Reassess labs in a.m.. Assessment 3.? Hypokalemia, improved Plan:? Will give oral potassium again today Assessment 4. Hypertension well controlled Plan: Continue outpatient medications. Will discontinue hydrochlorothiazide due to hypokalemia. I think we could optimize with safer medications. Will continue to follow. Assessment 5. Patient with ulcerative colitis.? Is now looking like probably what they see on the CT scan is a diverticulitis.? He also ate a large amount of knots prior to developing his symptoms. Plan:? Will continue on his outpatient balsalaside, will continue treating with IV antibiotics.? Will continue monitoring in CBC, electrolytes Assessment 6. Mental status changes worsened with acute febrile illness.? No other etiologies. Continues to improve and is near baseline in terms of cognition. Suspect metabolic encephalopathy related to infection. Plan:? Continue with IV antibiotics and continue to monitor Assessment 7.? Deconditioning with diffuse degenerative joint disease Plan: PT eval and treat Assessment 8. Urinary symptoms suspect related to traumatic straight cath in the ER and urinary tract infection with probable overdistention initially of the bladder. Plan: Will not put a Rolon catheter in at this time. We will treat with Flomax. We will continue to monitor. If needed will put a catheter in. Assessment 9. Hypothyroidism Plan: Continue with same thyroid medication. Assessment 10. Acute myocardial injury secondary to sepsis. Patient without any ongoing symptoms. No evidence clinically of acute coronary syndrome or angina or non STEMI.? His CK and troponin is trending down. Plan:? Will continue to follow clinically. Will discontinue telemetry Assessment 11. Cough with wheezing. Certainly could be due to pneumonia now we are seen more symptoms clinically because of fluid status he is no longer dehydrated. Could be some fluid overload. Plan: Will do chest x-ray. Will consult RT. Will continue IV antibiotics. Will stop IV fluids. Assessment 12. Lumbar pain status post fall. Plan: Will do x-ray. Will use lidocaine patch. Will continue physical therapy. Will use heat. Will treat with Tylenol and oxycodone. DVT prophylaxis Plan: Continue with Lovenox GI prophylaxis Plan continue with Protonix Disposition: Anticipate hospitalization an until Tuesday for Tuesday and then home with outpatient PT Time Spent With Patient Critical Care time: I spent a total of [] minutes of critical care time on this patient's care today; this time is exclusive of procedural time. Quality VTE Deep Vein Thrombosis/Pulmonary Embolism Present on Admission: No
[2021-01-28] MEDS: LIDOCAINE PATCH 1 EACH ADH..PATCH TOP (10:25)
[2021-01-28] MEDS: POTASSIUM CHLORIDE 20 MEQ TAB PO (10:25)
[2021-01-28] MEDS: TAMSULOSIN 0.4 MG CAPSULE PO (10:25)
--- NOTE | 2021-01-28 11:16 | CM.DPC ---
DCP Cont: Per MD, pt making some slow progress and anticipate possible d/c in 1-2 days to home. Per PT, recommending d/c home with spouse assist and outpt PT and FWW which spouse is looking to secure through [facility]. Plan: SW to follow for plan of home with spouse when medically stable and any further identified discharge planning needs. Vernell Meehan MSW
--- NOTE | 2021-01-28 11:46 | PT.IPTN ---
Current Diagnoses Urinary tract infection, site not specified (01/26/21) Physical Therapy Treatment Note M2 PT-IP Current Condition Start: 01/27/21 12:31 Freq: NEEDED Status: Active Protocol: Document 01/28/21 11:24 SP (Rec: 01/28/21 14:18 SP [id number]) Physical Therapy Current Condition Current Condition Evaluation Date 01/27/21 Treatment Diagnosis UTI; difficulty in walking Onset Date 01/26/21 M3 PT-IP Subjective Start: 01/27/21 12:31 Freq: NEEDED Status: Active Protocol: Document 01/28/21 11:24 SP (Rec: 01/28/21 14:18 SP [id number]) Subjective Physical Therapy Visit Type Type Treatment Note Visit Start Time 11:23 Visit Stop Time 11:46 Total Visit Minutes 23 Notes completed caregiver training, including donning gait belt and provided physical assist as needed throughout tx. CONSUMER CREDIT COUNSELOR donned PPE before entering room. Number of CONSUMER CREDIT COUNSELOR Visits 1 Physical Therapy Visit Comments Patient Comments Pt agreeable to working with therapy including 1 PF step assessment. Therapy Pain Assessment Pain When Pain Assessed At Rest Pain Present Pain Present Pain Reported Location Left Back Scale Used pain scale not stated Description With Movement Pain Management Techniques Distraction,Re-positioning, Timing of Activity with Medications M4 PT-IP Mobility and Gait Start: 01/27/21 12:31 Freq: NEEDED Status: Active Protocol: Document 01/28/21 11:24 SP (Rec: 01/28/21 14:18 SP [id number]) PT-Bed Mobility Assessment Sit to Supine Sit to Supine Standby Assistance PT-Transfer Assessment Sit to and From Stand Sit to and from Stand Contact Guard Assistance,1 Person Assistance,Use of Upper Extremities Equipment Transfer Assistive Device Gait Belt,Front Wheeled Walker Orthotic/Prosthetic Devices or Brace: No Transfers Transfer Destination Bed Transfer Technique amb w/ FWW Transfer Ability Level of Assist Standby Assistance,Contact Guard Assistance,Use of Upper Extremities Comments Mobility Comments Pt seated in chair when arrived, in room. donned gait belt post safety education. Pt completed sit> stand CGA w/ fWW. Ambulated to 1 PF step to assimulate enterance of garage assessment approx 5 ft , ascend/descend 1 PF step CGA with 1 LUE via and safety support by RUE on FWW repositioning, stable not sway or LOB, cued sequencing. Pt completed stance gait around room before BLE noted increase knee flexion approx 30 ft total with increase BUE WB on FWW observed, cued upright posture , quad facilitation and LLE foot clearance and stride length to equal RLE. Pt returned to L EOB, cued positioning via toward HOB more, then reach back CGA sit on EOB, sit>supine with use of bed rail sBA, able center self via bridging and BUE on bed. CONSUMER CREDIT COUNSELOR managed IV pole. Pt had call light and all needs in reach, bed alarmed with call light and allneeds in reach before left, updated communication board. Pt is ok to return home with to assist him when medically cleared, recommending 24/ HHPT for progressing strength and functional mobility. Gait Assessment Gait Gait Assistance Required: Contact Guard Assist,1 Person Assist Distance (Feet) 30 Able to Maintain Weight Bearing Status Yes During Gait Assistive Devices Assistive Device Gait Belt,Front Wheeled Walker Orthotic/Prosthetic Devices or Brace: No Gait Deviations General Gait Pattern Antalgic,Decreased Stride Length,Decreased Feet Clearance,Flexed Trunk,Step-to Gait Factors Limiting Gait Function Factors Limiting Gait Function Decreased Activity Tolerance, Decreased Strength,Difficulty Following Directions,Pain,Poor Balance,Poor Safety Awareness Comments Gait Comments See mobility comments Stair Climbing Assessment Evaluation Level of Assist On Stairs Contact Guard Assistance,1 Person Assistance Devices Stair Climbing Assistive Devices Front Wheel Walker Technique/Endurance Stair Climbing Direction Ascend and Descend Stair Climbing Technique Step to Step Number of Steps Climbed 1 Stair Climbing Set # Repetitions (reps) 1 Comments Stair Climbing Comments 1 PF step w/fWW, CGA via wifea trunk, safety positioning contact fWW, stable no LOB, mod cues for sequencing. PT-Balance Assessment Sitting Balance and Reactions Static Sitting Balance Ability Normal Dynamic Sitting Balance Ability Good Standing Balance and Reactions Static Standing Balance Ability Fair Dynamic Standing Balance Ability Fair Device Used FWW M5 PT-IP Objective Assessments Start: 01/27/21 12:31 Freq: NEEDED Status: Active Protocol: Document 01/27/21 10:17 AB (Rec: 01/27/21 12:47 AB [id number]) Orientation Orientation/Cognition Level of Alertness Alert Orientation Name,Situation Language Function Ability Hard of Hearing Safety Awareness Decreased Safety Awareness Memory Description Short Term Impaired Gross Range of Motion Lower Extremity ROM Assessment Within Functional Limits Strength Lower Extremity Strength Hip 4-/5 Knee 4-/5 Sensation Assessment Sensation Gross Sensation WNL Muscle Tone Muscle Tone WNL Yes M6 PT-IP Treatment Start: 01/27/21 12:31 Freq: NEEDED Status: Active Protocol: Document 01/28/21 11:24 SP (Rec: 01/28/21 14:18 SP [id number]) Physical Therapy Treatment Education Education Provided Safety M7 PT-IP Assessment and Plan Start: 01/27/21 12:31 Freq: NEEDED Status: Active Protocol: Document 01/28/21 11:24 SP (Rec: 01/28/21 14:18 SP [id number]) PT Summary Assessment and Plan Potential Rehabilitation Potential Good Status of Condition at Evaluation Stable Summary Impairments Pain,Strength,Balance, Coordination,Cognition,Bed Mobility,Transfers,Gait, Activity Tolerance Progress Towards Goals Progressing Toward Goals,Slow Progress due to Pain,Slow Progress due to Activity Tolerance Assessment Summary Pt required CGA during all mobiltiy using FWW with assist provided by during caregiver training. COmpleted 1 PF step to assimulate home enterance from garage CGA w/ FWW. Pt is ok to return home with 06/09 asssist available and HHPT for progression of strength and functional independance when medically cleared. was able to acquire FWW from [facility]. Goals Bed Mobility Goal Independent Transfer Goal Independent,Front Wheeled Walker Gait Goal Independent,Front Wheel Walker Gait Distance 200 Other Goals improve ambulation without AD 100 ft SBA up/down 1 step using FWW/ without AD SBA Days to Meet Goals 5 Frequency of Treatment Frequency Of Treatment Once a Day Treatment Plan Physical Therapy Treatment Plan Bed Mobility Training,Transfer Training,Gait Training, Therapeutic Exercise,Balance Retraining,Discharge Planning, Hot or Cold Pack,Neuromuscular Re-ed,Coordination Retraining Other Recommendations and Next Treatment LE ex, sit<> stands, standing Focus balance, further distance gait w/ FWW. Precautions Other Precautions falls Recommendations To Nursing Amount of Assist Needed 1 Person Assist Discharge Recommendations PT Discharge Recommendations Home with 06/09 Assist Available,Home Health Equipment Needed for Home Before accquired FWW from Discharge [facility] for home use. Transportation Needs at Discharge Private Vehicle
[2021-01-28] MEDS: SODIUM CHLORIDE 0.9% 250 ML IV (12:58)
--- NOTE | 2021-01-28 16:01 | PC.NURSE ---
Day shift: Pt no using his call light today. Bed alarm and chair alarm being used per protocol. Unsafe at this time for Pt to use SCD's. Encouraged to perform foot waves.
[2021-01-28] MEDS: LACTOBACILLUS ACIDOPHILUS TABLET 1 EACH PO (16:06)
[2021-01-28] MEDS: SODIUM CHLORIDE 0.9% FLUSH 10 ML IV (20:24)
[2021-01-28] MEDS: levoFLOXacin 500 MG/100 ML PIGGYBACK 100 MG IV (21:56)
--- NOTE | 2021-01-28 22:39 | PC.NURSE ---
Patient is alert and oriented. Breath sounds CTA with RA sat of 94% and denies SOB. Declines to wear CPAP for sleep. HRR. Denied nausea. BT hyperactive. States he still has some burning with urination but has improved; also complains of back hurting when he urinates. Is able to move himself in bed. Is weak so needs to use walker and SBA when out of bed. Refused SCD's so reminded to ankle wave. Is on contact isolation as blood culture gram stain was showing gm + cocci. Fall risk score is high and bed alarm is activated.
[2021-01-28] MEDS: ACETAMINOPHEN 325 MG TABLET 650 MG PO (23:57)
[2021-01-28] MEDS: MELATONIN 3 MG TABLET 6 MG PO (23:58)
[2021-01-29] VITALS (10 sets, daily range): BP systolic 115–166; BP diastolic 76–102; PULSE 58–82; RESP 16–18; TEMP 36.6–37.3; O2SAT 94–96
[2021-01-29] MEDS: metroNIDAZOLE 500 MG/100 ML PIGGYBACK 100 MG IV ×3 (03:15→19:53)
[2021-01-29] MEDS: SODIUM CHLORIDE 0.9% FLUSH 10 ML IV ×3 (03:15→21:25)
--- NOTE | 2021-01-29 05:15 | PM.PN.1 ---
Subjective Subjective Date Patient Seen: 01/29/21 Time Patient Seen: 05:15 Interval history: Patient is feeling fine today. Misses his cats and wants to get home to them soon. He has been ambulating up to the bathroom but is mostly tired. Appetite is fine. No nausea or vomiting. Having soft stools with no melena or hematochezia. Exam Vital Signs (past 8 hours): - 01/29/21 01:00 01/29/21 04:33 Temperature 98.4 F 97.9 F Pulse Rate 82 58 L Respiratory Rate 18 16 Blood Pressure 129/76 115/78 Pulse Oximetry 94 95 Oxygen Delivery Method Room Air Oxygen Flow Rate 0 Narrative Exam Narrative: GENERAL: Alert and oriented, appearing stated age and in no acute distress. HEENT: Head normocephalic/atraumatic. Extraocular movements intact. LUNGS: Clear to ausculation bilaterally, no wheezes, rhonchi or rales. CV: Normal S1 and S2 with regular rate and rhythm, no audible murmurs, rubs or gallops. ABDOMEN: Soft, non-tender, non-distended, no organomegaly. Positive bowel sounds. EXTREMITIES: No clubbing, cyanosis, or edema. NEURO: Cranial nerves II through XII grossly intact, no focal deficits. PSYCH: Alert and oriented x 3. SKIN: No concerning lesions. Objective Labs Result Diagrams: 01/29/21 04:25 01/29/21 04:25 Labs: Laboratory Results - last 24 hr 01/28/21 01/28/21 08:30 08:30 WBC 12.1 H RBC 3.84 L Hgb 11.3 L Hct 33.7 L MCV 87.8 MCH 29.4 MCHC 33.4 RDW 14.5 Plt Count 129 L Neut % (Auto) 82.9 H Lymph % (Auto) 8.1 L [place] % (Auto) 7.4 Eos % (Auto) 1.2 L Baso % (Auto) 0.4 Neut # (Auto) 74051 H Lymph # (Auto) 1000 L [place] # (Auto) 900 Eos # (Auto) 200 Baso # (Auto) 100 Sodium 134 L Potassium 3.4 Chloride 104 Carbon Dioxide 29 BUN 21 H Creatinine 0.98 Estimated GFR > 60.0 BUN/Creatinine Ratio 21.4 Glucose 120 H Calcium 7.6 L Total Bilirubin 0.7 AST 24 ALT 16 Alkaline Phosphatase 44 Total Protein 5.7 L Albumin 3.2 L Globulin 2.5 Albumin/Globulin Ratio 1.3 [facility] Medical History 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 Corneal abrasion Excessive daytime sleepiness Hypertension Hypothyroidism associated with surgical procedure Obstructive sleep apnea of adult PANCREATIC CYSTS Primary insomnia Rectal bleeding Restless legs syndrome (RLS) Snoring Social History marital status: details: shavonne Waite number of children: 1 household members: spouse lives independently: Yes caregiver/support person: No pets and animals: No occupational status: previously employed current occupational exposures/hazards: No 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 Cognition improving with treatment Plan:? Continue IV Levaquin and Flagyl to treat UTI and diverticulitis. Assessment 2. Acute dehydration due to febrile illness improved.? Patient is taking better p.o. intake now. Plan:? Continue oral intake ad heike. Will trend labs. Assessment 3.? Hypokalemia, persistent Plan:? Will replete oral potassium again today. Assessment 4. Hypertension well controlled Plan: Continue outpatient medications minus hydrochlorothiazide due to hypokalemia.? Assessment 5. Ulcerative colitis complicated by likely diverticulitis.? Plan:? Will continue on outpatient balsalaside. Will continue treating with IV antibiotics and monitor labs. Assessment 6.? Deconditioning with diffuse degenerative joint disease Plan: PT consulting. Assessment 7.? Urinary symptoms suspect related to traumatic straight cath in the ER and urinary tract infection with probable overdistention initially of the bladder. Plan: Avoiding Rolon. Continue flomax treatment and close monitoring. Assessment 9. Hypothyroidism Plan: Continue home thyroid medication. Assessment 10.? Acute myocardial injury secondary to sepsis.? Patient without any ongoing symptoms. No evidence clinically of acute coronary syndrome or angina or non STEMI.? CK and troponin is trending down. Plan:? Will continue to follow clinically.?Now off telemetry. Assessment 11. Cough with wheezing.? Chest x-ray negative. Plan:? Chest x-ray shows basilar streaky opacities, favor atalectasis. RT consultling. Will continue IV antibiotics.? Assessment 12. Lumbar pain status post fall. Plan:? X-ray negative for fracture.? Continue lidocaine patch, heat, tylneol, oxycodoone, and physical therapy.? DVT prophylaxis Plan: Continue with Lovenox GI prophylaxis Plan continue with Protonix Quality VTE Deep Vein Thrombosis/Pulmonary Embolism Present on Admission: No
[2021-01-29 05:24] LABS: Add Manual Diff / Slide Review NO; Basophils Absolute Auto 0 /uL (0-100); Basophils Percent Auto 0.3 % (0-2); Eosinophils Absolute Auto 200 /uL (0-450); Eosinophils Percent Auto 3.1 % (2-4); Hematocrit 33.3 % (41-53); Hemoglobin 11.2 g/dL (13.5-17.5); Lymphocytes Absolute Auto 1100 /uL (1100-4500); Mean Corpuscular HGB Conc 33.8 % (30-36); Mean Corpuscular Hemoglobin 29.8 PG (26-34); Mean Corpuscular Volume 88.2 fL (80-100); Monocytes Absolute Auto 900 /uL (0-900); Monocytes Percent Auto 11.4 % (3-14); Neutrophils Absolute Auto 5600 /uL (1500-7000); Neutrophils Percent Auto 71.2 % (50-75); Platelet Count 141 X10^3/uL (150-400); Red Blood Cell Count 3.77 X10^6/uL (4.5-5.9); Red Cell Distribution Width 14.3 % (11.6-14.8); White Blood Cell Count 7.8 X10^3/uL (4.5-11.0)
[2021-01-29 05:27] LABS: Alanine Aminotransferase 15 IU/L (<50); Albumin 3.1 g/dL (3.5-5.0); Albumin Globulin Ratio 1.2 (1.0-2.8); Alkaline Phosphatase 41 U/L (38-126); Aspartate Aminotransferase 21 IU/L (17-59); BUN Creatinine Ratio 20.2 (6-22); Bilirubin Total 0.5 mg/dL (0.2-1.3); Blood Urea Nitrogen 21 mg/dL (9-20); Calcium 7.7 mg/dL (8.4-10.2); Carbon Dioxide 29 mmol/L (22-32); Chloride 100 mmol/L (98-107); Estimated Glomerular Filt Rate > 60.0 mL/min (>60); Globulin 2.5 g/dL (1.7-4.1); Glucose 117 mg/dL (80-110); HEMOLYSIS < 15 (0-50); Potassium 3.2 mmol/L (3.4-5.1); Sodium 134 mmol/L (137-145); Total Protein 5.6 g/dL (6.3-8.2)
[2021-01-29] MEDS: PANTOPRAZOLE DR 20 MG TABLET PO (05:48)
[2021-01-29] MEDS: LEVOTHYROXINE 150 MCG TABLET PO (05:49)
[2021-01-29] MEDS: BALSALAZIDE 2250 MG 2250 EACH PO ×2 (09:24→22:09)
[2021-01-29] MEDS: IPRATROPIUM 0.06% NASAL 15 ML 1 SPRAY NASAL (09:25)
[2021-01-29] MEDS: LIDOCAINE PATCH 1 EACH ADH..PATCH TOP (09:25)
[2021-01-29] MEDS: ENOXAPARIN 40 MG/0.4 ML SYRINGE SUBCUT (09:25)
[2021-01-29] MEDS: MULTIVITAMIN 1 TABLET 1 TAB PO (09:26)
[2021-01-29] MEDS: LACTOBACILLUS ACIDOPHILUS TABLET 1 EACH PO (09:26)
[2021-01-29] MEDS: ACETAMINOPHEN 325 MG TABLET 650 MG PO ×2 (09:26→22:48)
[2021-01-29] MEDS: lisinopriL 20 MG TABLET PO (09:26)
[2021-01-29] MEDS: TAMSULOSIN 0.4 MG CAPSULE PO (09:26)
[2021-01-29] MEDS: CHOLECALCIFEROL (VITAMIN D3) 1,000 UNIT TABLET 1000 UNIT PO (09:26)
--- NOTE | 2021-01-29 10:55 | PT.IPTN ---
Current Diagnoses Urinary tract infection, site not specified (01/26/21) Physical Therapy Treatment Note M2 PT-IP Current Condition Start: 01/27/21 12:31 Freq: NEEDED Status: Active Protocol: Document 01/28/21 11:24 SP (Rec: 01/28/21 14:18 SP [id number]) Physical Therapy Current Condition Current Condition Evaluation Date 01/27/21 Treatment Diagnosis UTI; difficulty in walking Onset Date 01/26/21 M3 PT-IP Subjective Start: 01/27/21 12:31 Freq: NEEDED Status: Active Protocol: Document 01/29/21 10:29 KS (Rec: 01/29/21 12:36 KS [id number]) Subjective Physical Therapy Visit Type Type Treatment Note Visit Start Time 10:29 Visit Stop Time 10:55 Total Visit Minutes 26 Notes Pt spouse present during treatment. 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 Therapy Pain Assessment Pain When Pain Assessed At Rest Pain Present Pain Present Pain Reported M4 PT-IP Mobility and Gait Start: 01/27/21 12:31 Freq: NEEDED Status: Active Protocol: Document 01/29/21 10:29 KS (Rec: 01/29/21 12:36 KS [id number]) PT-Bed Mobility Assessment Supine to Sit Supine to Sit Standby Assistance Sit to Supine Sit to Supine Standby Assistance Scooting Scooting to Edge of Bed Standby Assistance Scooting Up and Down in Bed Standby Assistance PT-Transfer Assessment Sit to and From Stand Sit to and from Stand Contact Guard Assistance,1 Person Assistance,Use of Upper Extremities Equipment Transfer Assistive Device Gait Belt,Front Wheeled Walker Orthotic/Prosthetic Devices or Brace: No Transfers Transfer Destination Bed,Toilet Transfer Technique amb w/ FWW and SPC Transfer Ability Level of Assist Standby Assistance,Contact Guard Assistance,Use of Upper Extremities Comments Mobility Comments Pt in bed upon arrival from therapy and requesting to use bathroom. SBA for sup>sit and scooting EOB, CGA for sit<> stand w/ FWW and ambulation and transfer to toilet. After BM, pt ambulated ~10 ft to sink w/ FWW CGA and was able to maintain standing balance while hand washing. He then tried ambulation w/ SPC and completed ~30 ft in room, but had increased unsteadiness, increased L sided back pain, and began furniture surfing. Pt stated he feels safer and more comfortable w/ FWW. Pt returned to bed SBA and left in bed w/ and RN in room and all needs in reach. Gait Assessment Gait Gait Assistance Required: Contact Guard Assist,1 Person Assist Distance (Feet) 50 Able to Maintain Weight Bearing Status Yes During Gait Assistive Devices Assistive Device Gait Belt,Straight Cane,Front Wheeled Walker Orthotic/Prosthetic Devices or Brace: No Gait Deviations General Gait Pattern Antalgic,Decreased Stride Length,Decreased Feet Clearance,Flexed Trunk,Step-to Gait Factors Limiting Gait Function Factors Limiting Gait Function Decreased Activity Tolerance, Decreased Strength,Difficulty Following Directions,Pain,Poor Balance,Poor Safety Awareness Comments Gait Comments Pt ambulated w/ FWW and then SPC, he was more steady and reported feeling safer w/ FWW and c/o increased L sided back pain when using SPC, he also resulted to furntiture surfing w/ SPC. PT-Balance Assessment Sitting Balance and Reactions Static Sitting Balance Ability Normal Dynamic Sitting Balance Ability Good Standing Balance and Reactions Static Standing Balance Ability Fair Dynamic Standing Balance Ability Fair Device Used FWW M5 PT-IP Objective Assessments Start: 01/27/21 12:31 Freq: NEEDED Status: Active Protocol: Document 01/27/21 10:17 AB (Rec: 01/27/21 12:47 AB [id number]) Orientation Orientation/Cognition Level of Alertness Alert Orientation Name,Situation Language Function Ability Hard of Hearing Safety Awareness Decreased Safety Awareness Memory Description Short Term Impaired Gross Range of Motion Lower Extremity ROM Assessment Within Functional Limits Strength Lower Extremity Strength Hip 4-/5 Knee 4-/5 Sensation Assessment Sensation Gross Sensation WNL Muscle Tone Muscle Tone WNL Yes M6 PT-IP Treatment Start: 01/27/21 12:31 Freq: NEEDED Status: Active Protocol: Document 01/29/21 10:29 KS (Rec: 01/29/21 12:36 KS [id number]) Physical Therapy Treatment Education Education Provided Safety M7 PT-IP Assessment and Plan Start: 01/27/21 12:31 Freq: NEEDED Status: Active Protocol: Document 01/29/21 10:29 KS (Rec: 01/29/21 12:36 KS [id number]) PT Summary Assessment and Plan Potential Rehabilitation Potential Good Status of Condition at Evaluation Stable Summary Impairments Pain,Strength,Balance, Coordination,Cognition,Bed Mobility,Transfers,Gait, Activity Tolerance Progress Towards Goals Progressing Toward Goals,Slow Progress due to Pain,Slow Progress due to Activity Tolerance Assessment Summary Pt SBA for bed mobility, CGA for transfers and ambulation w / SPC and FWW. Pts gait is more steady and he is safer ambulating w/ FWW and pt agrees. Although no LOB w/ SPC , pt resulted to furniture surfing and reported increased pain and feeling of unsteadiness. Pt reports she will secure FWW from [facility]. Pt would benefit from HHPT to improve strength, balance, and functional independence. Goals Bed Mobility Goal Independent Transfer Goal Independent,Front Wheeled Walker Gait Goal Independent,Front Wheel Walker Gait Distance 200 Other Goals improve ambulation without AD 100 ft SBA up/down 1 step using FWW/ without AD SBA Days to Meet Goals 5 Frequency of Treatment Frequency Of Treatment Once a Day Treatment Plan Physical Therapy Treatment Plan Bed Mobility Training,Transfer Training,Gait Training, Therapeutic Exercise,Balance Retraining,Discharge Planning, Hot or Cold Pack,Neuromuscular Re-ed,Coordination Retraining Other Recommendations and Next Treatment LE ex, sit<> stands, standing Focus balance, further distance gait w/ FWW. Precautions Other Precautions falls Recommendations To Nursing Amount of Assist Needed 1 Person Assist Discharge Recommendations PT Discharge Recommendations Home with 06/09 Assist Available,Home Health Equipment Needed for Home Before accquired FWW from Discharge [facility] for home use. Transportation Needs at Discharge Private Vehicle
--- NOTE | 2021-01-29 11:00 | PC.NURSE ---
Day shift: Pt c/o left ear pain/discomfort. THis pain is transient in nature at this time. CHecking with pharmacy for possible sideFX of IV antibiotics. WIll continue to monitor. Pt also OOB w/ PT. Pt voided and had a loose stool. Pt has also been encouraged to drink more water.
[2021-01-29] MEDS: POTASSIUM CHLORIDE 20 MEQ TAB 40 MEQ PO ×2 (11:07→15:49)
[2021-01-29] MEDS: levoFLOXacin 500 MG/100 ML PIGGYBACK 100 MG IV (21:25)
[2021-01-30] VITALS (11 sets, daily range): BP systolic 147–163; BP diastolic 76–95; PULSE 66–82; RESP 16–18; TEMP 36.6–37.4; O2SAT 93–95
[2021-01-30] MEDS: metroNIDAZOLE 500 MG/100 ML PIGGYBACK 100 MG IV (04:29)
[2021-01-30] MEDS: LIDOCAINE JELLY 2% 5 ML 1 APPLIC TOP (04:43)
--- NOTE | 2021-01-30 04:51 | PC.NURSE ---
Patient stated severe pain and bladder spasms when attempting to void, unable to produce significant output when attempting to void all shift. Bladder scan showed 411mL. Provider notified and ordered Rolon catheter insertion. 14fr coude catheter used, patient tolerated fairly well, scant blood after insertion. Patient stated immediate relief and that he feels absolutely marvelous, now resting comfortably in bed.
[2021-01-30] MEDS: PANTOPRAZOLE DR 20 MG TABLET PO (06:16)
[2021-01-30] MEDS: LEVOTHYROXINE 150 MCG TABLET PO (06:16)
[2021-01-30] MEDS: LACTOBACILLUS ACIDOPHILUS TABLET 1 EACH PO (07:32)
[2021-01-30] MEDS: CHOLECALCIFEROL (VITAMIN D3) 1,000 UNIT TABLET 1000 UNIT PO (07:32)
[2021-01-30] MEDS: lisinopriL 20 MG TABLET PO (07:32)
[2021-01-30] MEDS: TAMSULOSIN 0.4 MG CAPSULE PO (07:32)
[2021-01-30] MEDS: MULTIVITAMIN 1 TABLET 1 TAB PO (07:32)
[2021-01-30] MEDS: HYDROCODONE/ACET 5/325 TABLET 1 TAB PO ×3 (07:32→18:36)
[2021-01-30] MEDS: ENOXAPARIN 40 MG/0.4 ML SYRINGE SUBCUT (07:32)
[2021-01-30] MEDS: LIDOCAINE PATCH 1 EACH ADH..PATCH TOP (07:33)
[2021-01-30] MEDS: SODIUM CHLORIDE 0.9% FLUSH 10 ML IV ×2 (07:34→21:13)
[2021-01-30] MEDS: BALSALAZIDE 2250 MG 2250 EACH PO ×2 (07:40→20:59)
--- NOTE | 2021-01-30 08:47 | P.PN_ITS ---
Subjective Subjective Date Patient Seen: 01/30/21 Time Patient Seen: 08:48 Interval history: Patient had a difficult night. He had urinary retention was found to have 1600 cc in his bladder. A catheter was inserted. He had a lot of back pain yesterday just feels very weak. He is having loose stools and is having incontinence of stool. He did not sleep last night. He is tolerating p.o. but is having poor intake. Exam Vital Signs (past 8 hours): - 01/30/21 00:53 01/30/21 04:00 Temperature 98.6 F 98.0 F Pulse Rate 73 70 Respiratory Rate 16 16 Blood Pressure 147/76 H 163/93 H Pulse Oximetry 93 93 Oxygen Delivery Method Nasal Cannula Oxygen Flow Rate 0 Narrative Exam Narrative: Patient is alert and oriented no apparent distress Neck: Supple without adenopathy or masses Chest: Clear to auscultation without rhonchi or crackles but he does have scattered wheezes and overall poor air exchange Cor: Regular rate and rhythm without any murmur Abdomen: Positive bowel sounds, soft, nontender, nondistended Extremities: No edema pulses intact Back shows tenderness paravertebral muscles Objective Labs Result Diagrams: 01/29/21 04:25 01/29/21 04:25 Labs: Laboratory Results - last 24 hr 01/26/21 12:03 A. baumannii (PCR) Not detected Nadine albicans (PCR) Not detected C. glabrata (PCR) Not detected C. krusei (PCR) Not detected C. parapsilosis (PCR) Not detected C. tropicalis (PCR) Not detected Enterobacteriac sp PCR Not detected E. cloacae complex PCR Not detected Enterococcus sp PCR Not detected E. coli (PCR) Not detected H. influenzae (PCR) Not detected Klebsiella oxytoca PCR Not detected Klebsiella pneumoniae Not detected List. monocytogenes PCR Not detected N. meningitidis (PCR) Not detected Proteus species (PCR) Not detected Serratia marcescens PCR Not detected Staphylococcus sp PCR Not detected Staph aureus (PCR) Not detected Streptococcus sp PCR Not detected Group A Strep (PCR) Not detected Strep agalactiae (PCR) Not detected Strep pneumoniae (PCR) Not detected P. 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 Hospital day 5. 65 minutes was spent with patient today. This included 2 visits. This included discussion with nursing as well as with his . Also reviewing his chart and formulating a plan and documenting this. Assessment 1. Sepsis secondary to UTI and probable diverticulitis. Chest x-ray shows no evidence of pneumonia at this time but probable atelectasis. Patient with evidence of end organ dysfunction as evidence by metabolic encephalopathy, leukocytosis, fever, acute myocardial injury and thrombocytopenia.? Suspect secondary to UTI and probable diverticulitis with also possible pneumonia.? Patient clinically is improved.? His white blood cell count is now normal. He has no fever. Is not requiring oxygen supplemental.? He does have 1 pediatric bottle with Gram-positive cocci.? We are waiting for final results.? I suspect this is a contaminant.? His urine culture shows E coli pansensitive.? Patient is clinically improving from the standpoint of sepsis. We will switch from IV Levaquin and metronidazole to p.o.. Will need a total of 5 more days. We will recheck labs in a.m.. Assessment 2. Acute dehydration due to febrile illness improved.? Patient is taking better p.o. intake now Plan:? Will continue to monitor. Assessment 3.? Hypokalemia, improved Plan:? Potassium is improved. Will reassess in a.m.. Will continue with potassium supplementation but I suspect that this will diminish since I have sto pped his hydrochlorothiazide. Assessment 4. Hypertension well controlled Plan: Continue outpatient medications.? Will discontinue hydrochlorothiazide due to hypokalemia.? I think we could optimize with safer medications.? Will continue to follow. Assessment 5. Patient with ulcerative colitis.? Is now looking like probably what they see on the CT scan is a diverticulitis.? He also ate a large amount of knots prior to developing his symptoms. Plan:? Will continue on his outpatient [place], will continue treating with IV antibiotics.? Will continue monitoring in CBC, electrolytes Assessment 6. Mental status changes worsened with acute febrile illness.? No other etiologies.? Continues to improve and is near baseline in terms of cognition.? Suspect metabolic encephalopathy related to infection. Plan:? Continue with IV antibiotics and continue to monitor Assessment 7.? Deconditioning with diffuse degenerative joint disease Plan: PT eval and treat Assessment 8.? Urinary symptoms suspect multifactorial. He had urinary retention last night. Plan: Will continue with Rolon catheter. Will likely need to go home with catheter and see Urology as outpatient. Will continue Flomax 0.4 mg daily. We will continue catheter for today. We will continue to treat infectious symptoms with antibiotics. Assessment 9. Hypothyroidism Plan: Continue with same thyroid medication. Assessment 10.? Acute myocardial injury secondary to sepsis.? Patient without any ongoing symptoms. No evidence clinically of acute coronary syndrome or angina or non STEMI.? His CK and troponin is trending down. Plan:? Will continue to follow clinically.? Assessment 11. Cough with wheezing.? Chest x-ray showed no evidence of pneumonia. Will continue with antibiotics and are T Plan:? Will continue with RT. We have added incentive spirometry Assessment 12. Lumbar pain status post fall. X-rays negative. This really is affecting his mobility. His pain is better with lidocaine patches and [place]. Plan:? Will continue with Tylenol, lidocaine patches, PT and [place] as needed. Pending how he is doing tomorrow he may be able to go home with home health PT and OT. We have discussed skilled care facility as well. Will depend how he does over the next 24-48 hours. DVT prophylaxis Plan: Continue with Lovenox GI prophylaxis Plan continue with Protonix Time Spent With Patient Critical Care time: I spent a total of [] minutes of critical care time on this patient's care today; this time is exclusive of procedural time. Quality VTE Deep Vein Thrombosis/Pulmonary Embolism Present on Admission: No
[2021-01-30] MEDS: metroNIDAZOLE 500 MG TABLET PO ×3 (09:58→20:59)
--- NOTE | 2021-01-30 10:16 | PC.NURSE ---
Day shift: Per Callum in Micro lab Pt soes not need to be on precautions.
--- NOTE | 2021-01-30 11:20 | PT-IP ANOTE ---
Attempted to see pt at 11:20, pt refused therapy this AM due to fatigue but offers he may try this afternoon.
--- NOTE | 2021-01-30 13:13 | PT.IPTN ---
Current Diagnoses Urinary tract infection, site not specified (01/26/21) Physical Therapy Treatment Note M2 PT-IP Current Condition Start: 01/27/21 12:31 Freq: NEEDED Status: Active Protocol: Document 01/28/21 11:24 SP (Rec: 01/28/21 14:18 SP [id number]) Physical Therapy Current Condition Current Condition Evaluation Date 01/27/21 Treatment Diagnosis UTI; difficulty in walking Onset Date 01/26/21 M3 PT-IP Subjective Start: 01/27/21 12:31 Freq: NEEDED Status: Active Protocol: Document 01/30/21 12:57 KS (Rec: 01/30/21 13:20 KS [id number]) Subjective Physical Therapy Visit Type Type Treatment Note Visit Start Time 12:57 Visit Stop Time 13:13 Total Visit Minutes 16 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 M4 PT-IP Mobility and Gait Start: 01/27/21 12:31 Freq: NEEDED Status: Active Protocol: Document 01/30/21 12:57 KS (Rec: 01/30/21 13:20 KS [id number]) PT-Bed Mobility Assessment Scooting Scooting to Edge of Bed Standby Assistance PT-Transfer Assessment Sit to and From Stand Sit to and from Stand Contact Guard Assistance,1 Person Assistance,Use of Upper Extremities Equipment Transfer Assistive Device Gait Belt,Front Wheeled Walker Orthotic/Prosthetic Devices or Brace: No Transfers Transfer Destination Chair Transfer Technique Pt ambulated w/ FWW Transfer Ability Level of Assist Standby Assistance,Contact Guard Assistance,Use of Upper Extremities Comments Mobility Comments Pt in chair upon arrival from therapy and agreeable to ambulation. CGA and cues for hand placement for sit<>stand. Pt then ambulated ~200 ft w/ FWW CGA and cues for increased foot clearance. Pt w/ decreased stride, foot clearance and wide based gait that did not improve w/ cues. Pt returned to room, CGA for stand<>sit and left in chairw/ chair alarm on and all needs in reach. Gait Assessment Gait Gait Assistance Required: Contact Guard Assist,1 Person Assist Distance (Feet) 200 Able to Maintain Weight Bearing Status Yes During Gait Assistive Devices Assistive Device Gait Belt,Straight Cane,Front Wheeled Walker Orthotic/Prosthetic Devices or Brace: No Gait Deviations General Gait Pattern Antalgic,Decreased Stride Length,Decreased Feet Clearance,Flexed Trunk,Step-to Gait Factors Limiting Gait Function Factors Limiting Gait Function Decreased Activity Tolerance, Decreased Strength,Difficulty Following Directions,Pain,Poor Balance,Poor Safety Awareness Comments Gait Comments Please refer to mobility section for details. PT-Balance Assessment Sitting Balance and Reactions Static Sitting Balance Ability Normal Dynamic Sitting Balance Ability Good Standing Balance and Reactions Static Standing Balance Ability Fair Dynamic Standing Balance Ability Fair Device Used FWW M5 PT-IP Objective Assessments Start: 01/27/21 12:31 Freq: NEEDED Status: Active Protocol: Document 01/27/21 10:17 AB (Rec: 01/27/21 12:47 AB [id number]) Orientation Orientation/Cognition Level of Alertness Alert Orientation Name,Situation Language Function Ability Hard of Hearing Safety Awareness Decreased Safety Awareness Memory Description Short Term Impaired Gross Range of Motion Lower Extremity ROM Assessment Within Functional Limits Strength Lower Extremity Strength Hip 4-/5 Knee 4-/5 Sensation Assessment Sensation Gross Sensation WNL Muscle Tone Muscle Tone WNL Yes M6 PT-IP Treatment Start: 01/27/21 12:31 Freq: NEEDED Status: Active Protocol: Document 01/30/21 12:57 KS (Rec: 01/30/21 13:20 KS [id number]) Physical Therapy Treatment Education Education Provided Safety M7 PT-IP Assessment and Plan Start: 01/27/21 12:31 Freq: NEEDED Status: Active Protocol: Document 01/30/21 12:57 KS (Rec: 01/30/21 13:20 KS [id number]) PT Summary Assessment and Plan Potential Rehabilitation Potential Good Status of Condition at Evaluation Stable Summary Impairments Pain,Strength,Balance, Coordination,Cognition,Bed Mobility,Transfers,Gait, Activity Tolerance Progress Towards Goals Progressing Toward Goals,Slow Progress due to Pain,Slow Progress due to Activity Tolerance Assessment Summary Pt showed increased toleracne for activity today and was able to ambulate ~200 ft w/ FWW CGA. Pt required cues for FWW use and gait, but did not improve following cues. Pt states he feels much safer using FWW than no AD or SPC and plans to use one at home. No rest breaks or LOB during ambulation, but at this time needs assistance while ambulating due to decreased stride and foot clearance and need for FWW management cues. Goals Bed Mobility Goal Independent Transfer Goal Independent,Front Wheeled Walker Gait Goal Independent,Front Wheel Walker Gait Distance 200 Other Goals improve ambulation without AD 100 ft SBA up/down 1 step using FWW/ without AD SBA Days to Meet Goals 5 Frequency of Treatment Frequency Of Treatment Once a Day Treatment Plan Physical Therapy Treatment Plan Bed Mobility Training,Transfer Training,Gait Training, Therapeutic Exercise,Balance Retraining,Discharge Planning, Hot or Cold Pack,Neuromuscular Re-ed,Coordination Retraining Other Recommendations and Next Treatment LE ex, sit<> stands, standing Focus balance, further distance gait w/ FWW. Precautions Other Precautions falls Recommendations To Nursing Amount of Assist Needed 1 Person Assist Discharge Recommendations PT Discharge Recommendations Home with 06/09 Assist Available,Home Health Equipment Needed for Home Before accquired FWW from Discharge [facility] for home use. Transportation Needs at Discharge Private Vehicle
[2021-01-31] VITALS (14 sets, daily range): BP systolic 138–152; BP diastolic 78–88; PULSE 66–75; RESP 16–20; TEMP 36.5–37.2; O2SAT 92–96
[2021-01-31] MEDS: PANTOPRAZOLE DR 20 MG TABLET PO (05:35)
[2021-01-31] MEDS: LEVOTHYROXINE 150 MCG TABLET PO (05:35)
[2021-01-31] MEDS: HYDROCODONE/ACET 5/325 TABLET 1 TAB PO ×2 (05:35→20:24)
--- NOTE | 2021-01-31 07:17 | PM.PN.1 ---
Subjective Subjective Date Patient Seen: 01/31/21 Time Patient Seen: 07:19 Interval history: Patient seen and evaluated this morning. Rolon catheter still in place. Says he slept well last night. Eating a little bit better. No significant further diarrhea. Heading back towards baseline mental status. Vital signs are stable. Was able to get up and walk with physical therapy yesterday. Exam Vital Signs (past 8 hours): - 01/31/21 01:00 01/31/21 05:00 Temperature 98.8 F 99.0 F Pulse Rate 67 74 Respiratory Rate 16 Blood Pressure 139/79 140/85 Pulse Oximetry 96 95 Oxygen Delivery Method Room Air Oxygen Flow Rate 0 Narrative Exam Narrative: General: He is alert knows he is at the hospital. HEENT. Elderly gentleman. Pupils equal round and reactive or mucosa is moist Cardio: S1-S2 systolic murmur present Respiratory: Lungs are clear to auscultation no wheezes or crackles abdomen: Soft nontender no rebound or guarding. Extremities: Warm dry perfused no significant edema Objective Labs Result Diagrams: 01/29/21 04:25 01/29/21 04:25 [facility] Medical History 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 Corneal abrasion Excessive daytime sleepiness Hypertension Hypothyroidism associated with surgical procedure Obstructive sleep apnea of adult PANCREATIC CYSTS Primary insomnia Rectal bleeding Restless legs syndrome (RLS) Snoring Social History marital status: details: shavonne Waite number of children: 1 household members: spouse lives independently: Yes caregiver/support person: No pets and animals: No occupational status: previously employed current occupational exposures/hazards: No 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 White blood cell counts improved blood pressure stable pulses stable afebrile. Less tachycardic. He has been converted to oral antibiotics. Urine culture shows E coli sensitive. Blood cultures done x3. Looks like 1 bottle was positive probable contaminate. Was not feeling super well yesterday with some diarrhea and weakness and feeling a little bit crummy. We will recheck white blood cell count today. I am assuming this will be much better. Hopefully we can continue with physical therapy out of bed ambulation oral eating and potentially discharge home with home health. Acute urinary retention. Patient with urinary tract infection hematuria. Significant retention of [address] catheter in [address]. Patient known history of BPH on Flomax. Voiding trial today. Remove Rolon catheter to see if he can urinate much better. If not he may have to have it replaced and go home with a catheter in have removed as an outpatient. Ulcerative colitis history with inflammation of his sigmoid colon questionable diverticular disease verses inflammation of his colon due to this. On his home patient treatment. Also on antibiotics with Levaquin and metronidazole. Recheck white blood cell count. She is having some diarrhea today. Probably due to antibiotics. If it continues will go ahead and check a stool for C diff. Acute myocardial injury section to underlying infection and sepsis. Cardiac enzymes are troponin down. Will go ahead and hold off on retreating he is asymptomatic. Acute metabolic encephalopathy. With CIS mental status changes. Continuing to improve and heading back to baseline. Hypokalemia. On potassium replacement continue to check electrolytes. Lumbar back pain. Status post fall. No signs of compression fracture on x-ray. Will continue with lidocaine patches and pain medication. Hypertension hypothyroidism chronic and stable. Disposition and plan remove Rolon catheter today if successful in doing well ambulating back to baseline arrange for home therapy and home today. If catheter needs to be replaced discharge tomorrow. Time Spent With Patient Critical Care time: I spent a total of [] minutes of critical care time on this patient's care today; this time is exclusive of procedural time. Quality VTE Deep Vein Thrombosis/Pulmonary Embolism Present on Admission: No
[2021-01-31] MEDS: LACTOBACILLUS ACIDOPHILUS TABLET 1 EACH PO (09:25)
[2021-01-31] MEDS: POTASSIUM CHLORIDE 20 MEQ/15 ML UDC PO ×2 (09:25→16:55)
--- NOTE | 2021-01-31 09:25 | CM.DPC ---
Addendum entered by Iona Desai R.N. 01/31/21 11:19: Spoke to patient's , Mariann. She wanted to Dr. Abreu, she was worried about him going home with a catheter. She was unavailable when he attempted to reach out to her. Discussed home health agencies. She has no preferences upon home health. Since [facility] is on the calender, went ahead and sent referral. Gave spouse their brochure. Had already mentioned referral to O[facility] at [facility]. Faxed over face sheet, face to face, orders, H&P, P.T notes, and today's progress note to [facility]. Will fax DC Summary when completed. Iona Desai RN/Lightning Rod Erector Original Note: DCP Cont: Spoke to Dr. 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 He mentioned discharging patient home with home health, he signed a face to face, but indicated that this would depend upon catheter. He indicated that if he can't void after catheter is discontinued, may need to go home with catheter. P: Will check in with patient and spouse about home health, and their preferences upon agencies. Iona Desai RN/Lightning Rod Erector
[2021-01-31] MEDS: BALSALAZIDE 2250 MG 2250 EACH PO ×2 (09:26→20:23)
[2021-01-31] MEDS: ENOXAPARIN 40 MG/0.4 ML SYRINGE SUBCUT (09:26)
[2021-01-31] MEDS: CHOLECALCIFEROL (VITAMIN D3) 1,000 UNIT TABLET 1000 UNIT PO (09:26)
[2021-01-31] MEDS: MULTIVITAMIN 1 TABLET 1 TAB PO (09:27)
[2021-01-31] MEDS: metroNIDAZOLE 500 MG TABLET PO ×3 (09:27→20:24)
[2021-01-31] MEDS: LIDOCAINE PATCH 1 EACH ADH..PATCH TOP (09:27)
[2021-01-31] MEDS: TAMSULOSIN 0.4 MG CAPSULE PO (09:27)
[2021-01-31] MEDS: lisinopriL 20 MG TABLET PO (09:27)
[2021-01-31] MEDS: SODIUM CHLORIDE 0.9% FLUSH 10 ML IV ×2 (09:30→20:29)
[2021-01-31 11:47] LABS: Add Manual Diff / Slide Review NO; Basophils Absolute Auto 0 /uL (0-100); Basophils Percent Auto 0.7 % (0-2); Eosinophils Absolute Auto 300 /uL (0-450); Eosinophils Percent Auto 4.9 % (2-4); Hematocrit 37.5 % (41-53); Hemoglobin 12.9 g/dL (13.5-17.5); Lymphocytes Absolute Auto 1200 /uL (1100-4500); Lymphocytes Percent Auto 17.8 % (25-40); Mean Corpuscular HGB Conc 34.3 % (30-36); Mean Corpuscular Hemoglobin 29.8 PG (26-34); Monocytes Absolute Auto 700 /uL (0-900); Monocytes Percent Auto 9.9 % (3-14); Neutrophils Absolute Auto 4600 /uL (1500-7000); Neutrophils Percent Auto 66.7 % (50-75); Platelet Count 201 X10^3/uL (150-400); Red Blood Cell Count 4.31 X10^6/uL (4.5-5.9); Red Cell Distribution Width 14.7 % (11.6-14.8); White Blood Cell Count 6.8 X10^3/uL (4.5-11.0)
--- NOTE | 2021-01-31 12:14 | PT.IPTN ---
Current Diagnoses Urinary tract infection, site not specified (01/26/21) Physical Therapy Treatment Note M2 PT-IP Current Condition Start: 01/27/21 12:31 Freq: NEEDED Status: Active Protocol: Document 01/28/21 11:24 SP (Rec: 01/28/21 14:18 SP [id number]) Physical Therapy Current Condition Current Condition Evaluation Date 01/27/21 Treatment Diagnosis UTI; difficulty in walking Onset Date 01/26/21 M3 PT-IP Subjective Start: 01/27/21 12:31 Freq: NEEDED Status: Active Protocol: Document 01/31/21 11:45 KS (Rec: 01/31/21 13:11 KS [id number]) Subjective Physical Therapy Visit Type Type Treatment Note Visit Start Time 11:45 Visit Stop Time 12:14 Total Visit Minutes 29 Number of CLINICAL TRIAL SPECIALIST Visits 4 Physical Therapy Visit Comments Patient Comments Pt agreeable to working with therapy. Pts present during treatment. M4 PT-IP Mobility and Gait Start: 01/27/21 12:31 Freq: NEEDED Status: Active Protocol: Document 01/31/21 11:45 KS (Rec: 01/31/21 13:11 KS [id number]) PT-Bed Mobility Assessment Scooting Scooting to Edge of Bed Standby Assistance PT-Transfer Assessment Sit to and From Stand Sit to and from Stand Contact Guard Assistance,1 Person Assistance,Use of Upper Extremities Equipment Transfer Assistive Device Gait Belt,Front Wheeled Walker Orthotic/Prosthetic Devices or Brace: No Transfers Transfer Destination Chair Transfer Technique Pt ambulated w/ FWW Transfer Ability Level of Assist Standby Assistance,Contact Guard Assistance,Use of Upper Extremities Comments Mobility Comments Pt in chair upon arrival, voicing frustration due to not being discharged today but agreeable to ambulation. Discussed at home safety and equipment w/ pt and , they have FWW and elevator in home . Pt agrees to use FWW at home . He was able to ambulate 300 ft w/ FWW CGA today, denied fatigue and no LOB. Returned to room for lunch and left in chair w/ alarm on and in room. Gait Assessment Gait Gait Assistance Required: Contact Guard Assist,1 Person Assist Distance (Feet) 300 Able to Maintain Weight Bearing Status Yes During Gait Assistive Devices Assistive Device Gait Belt,Straight Cane,Front Wheeled Walker Orthotic/Prosthetic Devices or Brace: No Gait Deviations General Gait Pattern Antalgic,Decreased Stride Length,Decreased Feet Clearance,Flexed Trunk,Step-to Gait Factors Limiting Gait Function Factors Limiting Gait Function Decreased Activity Tolerance, Decreased Strength,Difficulty Following Directions,Pain,Poor Balance,Poor Safety Awareness Comments Gait Comments Please refer to mobility section for details. PT-Balance Assessment Sitting Balance and Reactions Static Sitting Balance Ability Normal Dynamic Sitting Balance Ability Good Standing Balance and Reactions Static Standing Balance Ability Good Dynamic Standing Balance Ability Fair Device Used FWW M5 PT-IP Objective Assessments Start: 01/27/21 12:31 Freq: NEEDED Status: Active Protocol: Document 01/27/21 10:17 AB (Rec: 01/27/21 12:47 AB [id number]) Orientation Orientation/Cognition Level of Alertness Alert Orientation Name,Situation Language Function Ability Hard of Hearing Safety Awareness Decreased Safety Awareness Memory Description Short Term Impaired Gross Range of Motion Lower Extremity ROM Assessment Within Functional Limits Strength Lower Extremity Strength Hip 4-/5 Knee 4-/5 Sensation Assessment Sensation Gross Sensation WNL Muscle Tone Muscle Tone WNL Yes M6 PT-IP Treatment Start: 01/27/21 12:31 Freq: NEEDED Status: Active Protocol: Document 01/31/21 11:45 KS (Rec: 01/31/21 13:11 KS [id number]) Physical Therapy Treatment Education Education Provided Safety Other Treatments Other Treatment Performed Discussed at home safety and equipment. M7 PT-IP Assessment and Plan Start: 01/27/21 12:31 Freq: NEEDED Status: Active Protocol: Document 01/31/21 11:45 KS (Rec: 01/31/21 13:11 KS [id number]) PT Summary Assessment and Plan Potential Rehabilitation Potential Good Status of Condition at Evaluation Stable Summary Impairments Pain,Strength,Balance, Coordination,Cognition,Bed Mobility,Transfers,Gait, Activity Tolerance Progress Towards Goals Progressing Toward Goals Assessment Summary Pt showed increased mobility and tolerance for activity today. Able to safely ambulate ~300 ft w/ FWW CGA. He would benefit from outpatient rehab to improve balance and strength, but otherwise may go home w/ to assist as needed when medically stable. Goals Bed Mobility Goal Independent Transfer Goal Independent,Front Wheeled Walker Gait Goal Independent,Front Wheel Walker Gait Distance 200 Other Goals improve ambulation without AD 100 ft SBA up/down 1 step using FWW/ without AD SBA Days to Meet Goals 5 Frequency of Treatment Frequency Of Treatment Once a Day Treatment Plan Physical Therapy Treatment Plan Bed Mobility Training,Transfer Training,Gait Training, Therapeutic Exercise,Balance Retraining,Discharge Planning, Hot or Cold Pack,Neuromuscular Re-ed,Coordination Retraining Other Recommendations and Next Treatment LE ex, sit<> stands, standing Focus balance, further distance gait w/ FWW. Precautions Other Precautions falls Recommendations To Nursing Amount of Assist Needed 1 Person Assist Discharge Recommendations PT Discharge Recommendations Home with 06/09 Assist Available,Home Health Equipment Needed for Home Before accquired FWW from Discharge Soroptomist for home use. Transportation Needs at Discharge Private Vehicle
[2021-01-31 12:28] LABS: Alanine Aminotransferase 35 IU/L (<50); Albumin 3.4 g/dL (3.5-5.0); Albumin Globulin Ratio 1.3 (1.0-2.8); Alkaline Phosphatase 41 U/L (38-126); Aspartate Aminotransferase 81 IU/L (17-59); BUN Creatinine Ratio 18.8 (6-22); Bilirubin Total 0.3 mg/dL (0.2-1.3); Blood Urea Nitrogen 18 mg/dL (9-20); Calcium 8.5 mg/dL (8.4-10.2); Carbon Dioxide 30 mmol/L (22-32); Chloride 102 mmol/L (98-107); Estimated Glomerular Filt Rate > 60.0 mL/min (>60); Globulin 2.7 g/dL (1.7-4.1); Glucose 132 mg/dL (80-110); HEMOLYSIS < 15 (0-50); Potassium 3.7 mmol/L (3.4-5.1); Sodium 136 mmol/L (137-145); Total Protein 6.1 g/dL (6.3-8.2)
[2021-01-31] MEDS: MELATONIN 3 MG TABLET 6 MG PO (20:23)
[2021-01-31] MEDS: levoFLOXacin 250 MG TABLET 500 MG PO (20:23)
[2021-02-01] VITALS (7 sets, daily range): BP systolic 154–163; BP diastolic 75–97; PULSE 63–81; RESP 16–18; TEMP 37.1–37.3; O2SAT 93–99
[2021-02-01] MEDS: HYDROCODONE/ACET 5/325 TABLET 1 TAB PO (05:15)
[2021-02-01] MEDS: LEVOTHYROXINE 150 MCG TABLET PO (05:15)
[2021-02-01] MEDS: PANTOPRAZOLE DR 20 MG TABLET PO (05:16)
[2021-02-01 05:34] LABS: Add Manual Diff / Slide Review NO; Basophils Absolute Auto 100 /uL (0-100); Basophils Percent Auto 0.8 % (0-2); Eosinophils Absolute Auto 400 /uL (0-450); Eosinophils Percent Auto 5.9 % (2-4); Hematocrit 37.6 % (41-53); Hemoglobin 12.8 g/dL (13.5-17.5); Lymphocytes Absolute Auto 1700 /uL (1100-4500); Mean Corpuscular Hemoglobin 29.7 PG (26-34); Mean Corpuscular Volume 87.5 fL (80-100); Monocytes Absolute Auto 800 /uL (0-900); Monocytes Percent Auto 11.7 % (3-14); Neutrophils Absolute Auto 3600 /uL (1500-7000); Neutrophils Percent Auto 55.6 % (50-75); Platelet Count 207 X10^3/uL (150-400); Red Cell Distribution Width 14.2 % (11.6-14.8); White Blood Cell Count 6.5 X10^3/uL (4.5-11.0)
[2021-02-01 05:49] LABS: BUN Creatinine Ratio 20.9 (6-22); Blood Urea Nitrogen 19 mg/dL (9-20); Calcium 8.9 mg/dL (8.4-10.2); Carbon Dioxide 33 mmol/L (22-32); Chloride 101 mmol/L (98-107); Estimated Glomerular Filt Rate > 60.0 mL/min (>60); Glucose 108 mg/dL (80-110); HEMOLYSIS < 15 (0-50); Potassium 3.7 mmol/L (3.4-5.1); Sodium 136 mmol/L (137-145)
[2021-02-01] MEDS: POTASSIUM CHLORIDE 20 MEQ/15 ML UDC PO (08:07)
[2021-02-01] MEDS: ACETAMINOPHEN 325 MG TABLET 650 MG PO (08:08)
[2021-02-01] MEDS: LACTOBACILLUS ACIDOPHILUS TABLET 1 EACH PO (08:08)
[2021-02-01] MEDS: BALSALAZIDE 2250 MG 2250 EACH PO (08:08)
[2021-02-01] MEDS: LIDOCAINE PATCH 1 EACH ADH..PATCH TOP (08:09)
[2021-02-01] MEDS: CHOLECALCIFEROL (VITAMIN D3) 1,000 UNIT TABLET 1000 UNIT PO (08:09)
[2021-02-01] MEDS: TAMSULOSIN 0.4 MG CAPSULE PO (08:09)
[2021-02-01] MEDS: ENOXAPARIN 40 MG/0.4 ML SYRINGE SUBCUT (08:09)
[2021-02-01] MEDS: metroNIDAZOLE 500 MG TABLET PO (08:09)
[2021-02-01] MEDS: lisinopriL 20 MG TABLET PO (08:09)
[2021-02-01] MEDS: MULTIVITAMIN 1 TABLET 1 TAB PO (08:09)
[2021-02-01] MEDS: SODIUM CHLORIDE 0.9% FLUSH 10 ML IV (08:10)
[2021-02-01] MEDS: IPRATROPIUM 0.06% NASAL 15 ML 1 SPRAY NASAL (08:10)
--- NOTE | 2021-02-01 11:16 | PM.DS.1 ---
History of Present Illness History of Present Illness Chief complaint: Confusion Discharge Providers Provider Date of admission: 01/26/21 17:10 Discharge Date: 02/01/21 Primary care physician: Annetta Sanabria MD Consults: 01/26/21 19:08 Consult to Discharge Planning Routine Comment: Consult to Physical Therapy Evaluate & Treat Comment: Physician Instructions: Evaluate and Treat 01/28/21 09:43 Consult to Physical Therapy Evaluate & Treat Comment: Physician Instructions: Evaluate and Treat Consult to Respiratory Therapy Evaluate & Treat Comment: wheezing, cough, pneumonia Physician Instructions: Evaluate and treat 01/31/21 11:09 Consult to Home Health Routine Comment: Reason For Exam: Home Health RN, P.T, O.T. Discharge provider: Jordan Abreu MD Summary Hospital Course Discharge Diagnosis: Sepsis due to urinary tract infection Acute metabolic encephalopathy due to urinary tract infection ulcerative colitis flare Urinary tract infection Ulcerative colitis complicated by diverticulitis Acute myocardial injury Acute urinary retention requiring placement of Rolon catheter Acute dehydration Hypokalemia Osteoarthritis of spine Hospital Course: 81-year-old male admitted to the hospital with weakness fell inability to ambulate due to his weakness and confusion. He also had a fever as well to 102. Patient was found to have urinary tract infection with sepsis and possible diverticulosis and diverticulitis with a history of ulcerative colitis. He was started on Levaquin and metronidazole. He was also given fluids. Over the ensuing 48 hours patient had improvement of his fever metabolic encephalitis. Patient also was found to have an intermediate elevation of his troponin which improved during his hospital stay. During the hospital stay he had acute urinary retention. Was greater than 1 L of urine. He required urgent Rolon catheterization which patient had placed. This delayed his hospital course by 48 hours. Patient was continued on his Flomax Rolon catheter was then removed. Patient then had improvement of the symptomatology. At time of discharge. He was converted to oral antibiotics. He is ambulating his Rolon catheter was removed. Patient was tolerating his diet. Aftercare and discharge instructions were reviewed with he and his today. They will be discharged home with home health. Of a urology appointment. Exam Vital Signs (past 8 hours): - 02/01/21 04:00 02/01/21 05:08 02/01/21 08:22 Temperature 98.9 F 99.2 F Pulse Rate 65 63 Respiratory Rate 18 18 Blood Pressure 159/76 H 163/75 H Pulse Oximetry 95 93 93 Oxygen Delivery Method Room Air Oxygen Flow Rate 0 Objective Labs Result Diagrams: 02/01/21 04:35 02/01/21 04:35 Labs: Laboratory Results - last 24 hr 01/31/21 01/31/21 02/01/21 11:35 11:35 04:35 WBC 6.8 6.5 RBC 4.31 L 4.30 L Hgb 12.9 L 12.8 L Hct 37.5 L 37.6 L MCV 87.0 87.5 MCH 29.8 29.7 MCHC 34.3 34.0 RDW 14.7 14.2 Plt Count 201 207 Neut % (Auto) 66.7 55.6 Lymph % (Auto) 17.8 L 26.0 [place] % (Auto) 9.9 11.7 Eos % (Auto) 4.9 H 5.9 H Baso % (Auto) 0.7 0.8 Neut # (Auto) 4600 3600 Lymph # (Auto) 1200 1700 [place] # (Auto) 700 800 Eos # (Auto) 300 400 Baso # (Auto) 0 100 Sodium 136 L Potassium 3.7 Chloride 102 Carbon Dioxide 30 BUN 18 Creatinine 0.96 Estimated GFR > 60.0 BUN/Creatinine Ratio 18.8 Glucose 132 H Calcium 8.5 Total Bilirubin 0.3 AST 81 H ALT 35 Alkaline Phosphatase 41 Total Protein 6.1 L Albumin 3.4 L Globulin 2.7 Albumin/Globulin Ratio 1.3 02/01/21 04:35 WBC RBC Hgb Hct MCV MCH MCHC RDW Plt Count Neut % (Auto) Lymph % (Auto) [place] % (Auto) Eos % (Auto) Baso % (Auto) Neut # (Auto) Lymph # (Auto) [place] # (Auto) Eos # (Auto) Baso # (Auto) Sodium 136 L Potassium 3.7 Chloride 101 Carbon Dioxide 33 H BUN 19 Creatinine 0.91 Estimated GFR > 60.0 BUN/Creatinine Ratio 20.9 Glucose 108 Calcium 8.9 Total Bilirubin AST ALT Alkaline Phosphatase Total Protein Albumin Globulin Albumin/Globulin Ratio [facility] Medical History 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 Corneal abrasion Excessive daytime sleepiness Hypertension Hypothyroidism associated with surgical procedure Obstructive sleep apnea of adult PANCREATIC CYSTS Primary insomnia Rectal bleeding Restless legs syndrome (RLS) Snoring Social History marital status: details: shavonne Waite number of children: 1 household members: spouse lives independently: Yes caregiver/support person: No pets and animals: No occupational status: previously employed current occupational exposures/hazards: No 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 Sanabria. Patient needs an outpatient appointment to see Dr. Mishra or Dr. Adams in Urology for urinary retention. Discharge orders & Medications Prescriptions: New hydrocodone-acetaminophen 5-325 mg Tablet 1 tab PO Q4HR PRN (Reason: Pain, Moderate (4-6)) Qty: 20 0RF metronidazole 500 mg Tablet 500 mg PO TID Qty: 15 0RF levofloxacin 250 mg Tablet 500 mg PO 2100 Qty: 5 0RF Continued triamcinolone acetonide 0.1 % cream 1 applic topical BID Qty: 30 0RF lisinopril-hydrochlorothiazide 20 MG/12.5 MG tablet 1 tab PO QDAY Qty: 0 0RF acetaminophen 325 MG tablet 650 mg PO Q4HP PRN (Reason: Pain (Scale Score 4-6)) Qty: 0 0RF clobetasol 0.05 % solution 0.05 % Topical DAILY PRN (Reason: Wound Healing) Qty: 0 0RF ipratropium bromide 0.06 % spray,non-aerosol 2 spray Intranasal DAILY PRN (Reason: Respiratory Distress) Qty: 0 0RF levothyroxine 175 mcg Tablet 175 mcg PO Q OTHER DAY 0RF Rx Instructions: alternate with 150mcg levothyroxine potassium chloride 10 mEq Capsule, Extended Release 10 meq PO BID 0RF diclofenac sodium gel 10 % transdermal BID 0RF Centrum Silver Ultra Men's 300-600-300 mcg Tablet 1 tab PO DAILY 0RF balsalazide 2,250 mg PO BID 0RF levothyroxine 150 mcg PO Q OTHER DAY 0RF Rx Instructions: alternate with 175mcg cholecalciferol (vitamin D3) 1,000 units PO DAILY 0RF melatonin 5 mg PO BEDTIME PRN (Reason: Insomnia) 0RF turmeric root extract 2,000 mg PO BID 0RF (DME) Respironics System One 60 Series BIPAP Qty: 1 0RF Label Comments: Pressure: IPAP 21 EPAP 10 DME: [facility] Rx Instructions: As directed Follow up/Referrals: Annetta Sanabria MD [Primary Care Provider] - Visit Report/Discharge Packet Instructions: Urinary Tract Infection, Benign Prostatic Hyperplasia Visit Report Forms: Patient Portal/API, Stroke Signs & Symptoms Discharge Data Primary Care Provider: Annetta Sanabria Quality VTE Deep Vein Thrombosis/Pulmonary Embolism Present on Admission: No
--- NOTE | 2021-02-01 11:43 | CM.DPC ---
DCP Cont: Patient has discharge orders, he does not need catheter. Called [facility] and left a message that he is discharging. Already sent referral with orders and face to face yesterday. Spouse has brochure for [facility]. P: Patient is discharging home today with [facility]. Iona Desai RN/Hospital Cook
--- NOTE | 2021-02-01 13:58 | PC.NURSE ---
Discharge home per provider's order. [facility] arranged by Care Management. Pt and spouse verbalized understanding of all d/c instructions. IV removed. Pt escorted off unit via w/c with all personal belongings. Pt left in stable condition.
== END 2021-02-01 13:00 | disposition home or self-care (01) | DRG 871 ==
LOC: ED 14:09 → AC 17:11
PROVIDERS: Family Medicine; Admitting Provider Family Medicine; Emergency Provider Emergency Medicine; Family Provider Family Medicine; PCP Family Medicine; Referring Provider Emergency Medicine; Visit Provider Family Medicine
DX: A41.9 Sepsis, unspecified organism (principal); G93.41 Metabolic encephalopathy; N39.0 Urinary tract infection, site not specified; K57.92 Diverticulitis of intestine, part unspecified, without perforation or abscess without bleeding; K51.90 Ulcerative colitis, unspecified, without complications; I5A Non-ischemic myocardial injury (non-traumatic); R65.20 Severe sepsis without septic shock; E86.0 Dehydration; D69.59 Other secondary thrombocytopenia; E87.6 Hypokalemia; M54.9 Dorsalgia, unspecified; R33.9 Retention of urine, unspecified; E03.9 Hypothyroidism, unspecified; I10 Essential (primary) hypertension; G47.33 Obstructive sleep apnea (adult) (pediatric); Z20.822 Contact with and (suspected) exposure to COVID-19; Z87.891 Personal history of nicotine dependence
CPT/HCPCS: 36415; 51701; 51798; 70450; 71045; 71046; 72100; 74177; 80048; 80053; 81001; 82550; 82553; 83605; 83690; 84145; 84443; 84484; 85007; 85025; 85610; 85730; 87040; 87077; 87086; 87150; 87186; 87205; 87633; 87635; 93005; 93010; 94760; 96361; 96365; 96366; 96367; 97116; 97161; 97530; 99285; C9803; J1650; J1956

== ENCOUNTER → 2021-02-05 15:31 | Outpatient (CLI) | payer MEDICARE, OTHER, SELFPAY ==
[2021-01-26 20:37] VITALS: BMI 29.8
== END ==
PROVIDERS: Family Provider Family Medicine; PCP Family Medicine; Referring Provider Urology; Visit Provider Urology
DX: N47.1 Phimosis (principal); N42.9 Disorder of prostate, unspecified; K57.92 Diverticulitis of intestine, part unspecified, without perforation or abscess without bleeding; R31.0 Gross hematuria; R30.0 Dysuria; R33.9 Retention of urine, unspecified; Z87.440 Personal history of urinary (tract) infections; Z87.891 Personal history of nicotine dependence
CPT/HCPCS: 51798; 81002; 87077; 87086; 87147; 87186; 99215

== ENCOUNTER → 2021-02-17 10:51 | Outpatient (CLI) | payer MEDICARE, OTHER, SELFPAY ==
[2021-01-26 20:37] VITALS: BMI 29.8
--- NOTE | 2021-02-17 | DI.RAD.S_ITS ---
PROCEDURE: XR THORACIC SPINE 3V INDICATIONS: Dorsalgia, unspecified TECHNIQUE: 3 views of the thoracic spine were acquired. COMPARISON: [facility], CR, XR LUMBAR SPINE 2-3V, 01/28/2021, 9:43. [facility], CR, CHEST 2 VIEW, 02/26/2016, 15:11. [facility], CT, CT ABDOMEN PELVIS W CON, 01/26/2021, 12:54. FINDINGS: Bones: There is an appearance of mild height loss of the vertebral bodies at T10 and T12 compared to prior exam on 01/28/2021. No suspicious bony lesions. 12 pairs of ribs are noted, and appear intact where visualized. Moderate to severe multilevel disc space narrowing is present throughout the thoracic spine. Multilevel degenerative anterior osteophytes are present, with some particularly in the upper and mid spine bridging in appearance. Soft tissues: No paravertebral stripe thickening. IMPRESSION: Appearance of height loss at T10 and T12 compared to 01/28/2021. While this could be positional, recommend correlation to recent trauma and if concern persists, CT may be obtained. Dictated by: Misty Carter M.D. on 02/17/2021 at 14:32 Approved by: Misty Carter M.D. on 02/17/2021 at 14:37
== END ==
PROVIDERS: Family Provider Family Medicine; PCP Family Medicine; Referring Provider Family Medicine; Visit Provider Family Medicine
DX: M54.9 Dorsalgia, unspecified (principal); M48.04 Spinal stenosis, thoracic region
CPT/HCPCS: 72072

== ENCOUNTER → 2021-02-18 13:41 | Outpatient (CLI) | payer MEDICARE, OTHER, SELFPAY ==
[2021-01-26 20:37] VITALS: BMI 29.8
[2021-02-18 14:29] LABS: Appearance Urine UA CLEAR; Bilirubin Urine UA NEGATIVE (NEGATIVE); Color Urine UA YELLOW; Glucose Urine UA NEGATIVE (Negative); Ketones Urine UA NEGATIVE (NEGATIVE); Leukocyte Esterase Urine UA TRACE (NEGATIVE); Nitrite Urine UA NEGATIVE (Negative); Occult Blood Urine UA NEGATIVE (Negative); Protein Urine UA NEGATIVE (Negative); Specific Gravity Urine UA 1.015 (1.000-1.035); Urobilinogen Urine UA 0.2 E.U./dL (0.2); pH Urine UA 6.5 (4.5-8.0)
[2021-02-18 14:39] LABS: Bacteria Urine None Seen; Culture Indicated Urine Specimen Cultured; RBC Urine None Seen (0-5/HPF); WBC Urine 5-10/HPF (0-5/HPF)
== END ==
PROVIDERS: Urology; Family Provider Family Medicine; PCP Family Medicine; Referring Provider Internal Medicine; Visit Provider Internal Medicine
DX: R30.0 Dysuria (principal)
CPT/HCPCS: 81001; 87086

== ENCOUNTER → 2021-02-28 10:03 | Outpatient (CLI) | payer MEDICARE, OTHER, SELFPAY ==
[2021-01-26 20:37] VITALS: BMI 29.8
--- NOTE | 2021-02-28 10:04 | DI.MRI.S_ITS ---
PROCEDURE: MR THORACIC SPINE WO CON INDICATIONS: BACK PAIN TECHNIQUE: Noncontrast sagittal T1 spine echo and T2 fast spin echo, sagittal STIR, axial T1 and T2 fast spin echo through the thoracic spine. COMPARISON: [facility], MR, MR LUMBAR SPINE WO CON, 02/28/2021, 10:17. [facility], CR, XR LUMBAR SPINE 2-3V, 01/28/2021, 9:43. [facility], CR, XR THORACIC SPINE 3V, 02/17/2021, 10:56. FINDINGS: Image quality: Excellent. Alignment and Curvature: There is normal bony alignment. Bone Marrow: Marrow is of normal overall signal. No acute vertebral body compression fractures. Spinal Cord: Visualized spinal cord is normal in size and signal. Paraspinous Soft Tissues: No paravertebral masses. Bilateral T2 hyperintensities are present within the kidneys suggestive of simple cysts. Miscellaneous: On axial images, central canal appears widely patent at all scanned levels. Minimal disc bulges are present at T1 to, T2-3, T3-4, T5-6, T6-7, T10 pressley, T12-L1. There is mild left foraminal narrowing at T2-3, mild right T9-10, mild bilateral T10-11, mild bilateral T12-L1. IMPRESSION: 1. Scattered areas of minimal 2 mild disc bulges and foraminal narrowing within the thoracic spine as above. Dictated by: Misty Carter M.D. on 03/02/2021 at 9:24 Approved by: Misty Carter M.D. on 03/02/2021 at 9:28
--- NOTE | 2021-02-28 10:04 | DI.MRI.S_ITS ---
PROCEDURE: MR LUMBAR SPINE WO CON INDICATIONS: BACK PAIN TECHNIQUE: Noncontrast sagittal T1 spin echo and T2 fast echo, sagittal STIR, axial T1 and T2 fast spin echo through the lumbar spine. In cases with scoliosis, additional coronal T2 fast spin echo may be performed. COMPARISON: None. FINDINGS: Image quality: Excellent. Alignment and Curvature: There is grade 1 retrolisthesis measuring 2 mm of L1 on L2, 3 mm of L2 on L3. Grade 1 anterolisthesis of L4 on L5 is present measuring 5 mm. Bone Marrow: Marrow is of normal overall signal. Schmorl's nodes are noted along the inferior endplates of L1, L2 and L3 and to a lesser degree superior endplates of L1, L2 L3 and L4. No acute vertebral body compression fractures. Spinal Cord: Conus medullaris terminates at the T12-L1 level. Visualized cord demonstrates normal signal and size. Paraspinous Soft Tissues: No paravertebral masses. Discs: Moderate desiccation is present throughout the lumbar spine. T12-L1: Minimal disc bulge with minimal canal narrowing. Mild bilateral foraminal narrowing with facet and ligamentum flavum hypertrophy. L1-L2: Mild disc bulge with mild spinal stenosis. Vgxr-az-rgupshno bilateral foraminal narrowing with facet and ligamentum flavum hypertrophy. L2-L3: Mild disc bulge with moderate spinal stenosis. There is gysb-tv-[id number] left foraminal narrowing as well as mild to moderate narrowing through the subarticular recess on the right. Facet and ligamentum flavum hypertrophy are present. L3-L4: Mild disc bulge with severe spinal stenosis and canal compression. Moderate left and mild right foraminal narrowing with facet and ligamentum flavum hypertrophy. L4-L5: Mild disc bulge with severe spinal stenosis and canal compression. There is severe bilateral foraminal narrowing, right greater than left with very minimal appearance of nerve root compression of the exiting L4 nerve roots on the right. L5-S1: Mild disc bulge without spinal stenosis. Moderate to severe right and severe left foraminal narrowing with facet and ligamentum flavum hypertrophy. Minimal appearance of exiting left L5 nerve root compression is present. IMPRESSION: Multilevel disc bulges. 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 Multilevel foraminal narrowing overall moderate to severe predominantly secondary to facet arthropathy. Dictated by: Misty Carter M.D. on 03/02/2021 at 9:30 Approved by: Misty Carter M.D. on 03/02/2021 at 10:19
== END ==
PROVIDERS: Family Provider Family Medicine; PCP Family Medicine; Referring Provider Family Medicine; Visit Provider Family Medicine
DX: M54.9 Dorsalgia, unspecified (principal); M54.16 Radiculopathy, lumbar region; M48.04 Spinal stenosis, thoracic region; M48.061 Spinal stenosis, lumbar region without neurogenic claudication; M51.26 Other intervertebral disc displacement, lumbar region; M51.24 Other intervertebral disc displacement, thoracic region
CPT/HCPCS: 72146; 72148

== ENCOUNTER → 2021-03-05 14:32 | Outpatient (CLI) | payer MEDICARE, OTHER, SELFPAY ==
[2021-01-26 20:37] VITALS: BMI 29.8
--- NOTE | 2021-03-05 14:33 | DI.ECHO.S_ITS ---
[place] +---------+ [facility] +---------+ : : [address] : : : : [id number] : : : : Phone: [phone] Echocardiogram Report + + :Name: LUPE ARNOLD Study Date: 03/05/2021 Height: 67 in : :[facility] ReadingLocation: Weight: 180 lb : : Gender: Male BSA: 1.9 m2 : :: 1940 Age: 80 yrs BP: 169/97 mmHg: :Reason For Study: Syncope and collapse : :Ordering Physician: : :DUANE Performed By: Oswald Mayo : :Referring: RACHELLE PHILLIPS : + + Interpretation Summary The ejection fraction is estimated to be 50-55%. There is a mild dyssynchronous contraction pattern, consistent with a conduction abnormality. Suspect grade II diastolic dysfunction. The right ventricle is normal size. The right ventricular systolic function is normal. The left atrium is at least mildly dilated. There is mild mitral regurgitation. There is mild tricuspid regurgitation. PASP is approximately 32 to 37 mmHg. Compared to the prior study dated 10/25/2017, there is a slight reduction in ejection fraction. Procedure: A two-dimensional transthoracic echocardiogram with color flow and Doppler was performed. The study quality was technically adequate. The apical views were difficult to obtain and are suboptimal in quality. There is no prior echocardiogram noted for this patient. The patient was in normal sinus rhythm during the exam. Left Ventricle: The left ventricle is normal in size and wall thickness. The ejection fraction is estimated to be 50-55%. There is a mild dyssynchronous contraction pattern, consistent with a conduction abnormality. Suspect grade II diastolic dysfunction. Right Ventricle: The right ventricle is normal size. The right ventricular systolic function is normal. Atria: The left atrium is mildly dilated. Right atrium not well visualized secondary to technical limitations. There is no Doppler evidence for an interatrial shunt. Mitral Valve: The mitral valve is normal. There is mild mitral regurgitation. Aortic Valve: The aortic valve opens well. There is no aortic valve stenosis. There is trace aortic regurgitation. Tricuspid Valve: The tricuspid valve is normal. There is mild tricuspid regurgitation. PASP is approximately 32 to 37 mmHg. Pulmonic Valve: The pulmonic valve leaflets are thin and pliable; valve motion is normal. There is a trace or physiologic amount of pulmonic regurgitation. Great Vessels: Aortic root borderline dilated at 3.7 cm. Ascending aorta mildly dilated at 3.9 cm. The aortic arch is normal in size. The IVC is of normal diameter and collapses greater than 50% with a sniff. This suggests a low right atrial pressure of 3 mm Hg. Pericardium/ Pleura There is no pericardial effusion. There is an anterior echo-free space consistent with a fat pad. There is no pleural effusion. MMode/2D Measurements & Calculations LVIDd: 4.7 cm LVOT diam: 2.2 cm LVIDs: 2.6 cm Ao root diam: 3.7 cm FS: 44.7 % asc Aorta Diam: 3.9 cm IVSd: 1.2 cm Ao Arch Diam (Prox Trans): 2.6 cm LVPWd: 1.0 cm LV rubio. diameter/BSA (cm/m^2): 2.4 LV sys. diameter/BSA (cm/m^2): 1.3 LA A2 area: 26.8 cm2 RA long axis: 4.7 cm LA A4 area: 18.6 cm2 LA length (vol): 6.7 cm LA vol: 63.5 ml LA vol index: 32.9 ml/m2 LVLs ap4: 6.1 cm LVLd ap2: 6.9 cm LVLs ap2: 5.9 cm TAPSE_phl: 2.3 cm Doppler Measurements & Calculations Ao V2 max: 142.0 cm/sec LVOT Max Keenan: 85.5 cm/sec Ao V2 mean: 98.4 cm/sec LV V1 max P.9 mmHg Ao max P.0 mmHg LV V1 VTI: 18.1 cm Ao mean P.0 mmHg JAYLA(I,D): 2.4 cm2 Ao V2 VTI: 28.3 cm JAYLA(V,D): 2.3 cm2 sev ratio: 0.64 JAYLA indexed to BSA (cm^2/m^2): 1.3 MV E max keenan: 61.7 cm/sec TR max keenan: 267.4 cm/sec MV A max keenan: 69.0 cm/sec TR max P.6 mmHg MV E/A: 0.89 PA V2 max: 73.8 cm/sec Med Peak E' Keenan: 5.1 cm/sec PA V2 mean: 53.6 cm/sec E/E' med: 12.0 PA mean P.0 mmHg Lat Peak E' Keenan: 6.8 cm/sec PA pr(Accel): 45.7 mmHg E/E' lat: 9.1 E/e' average: 10.6 MV dec time: 0.20 sec SV(LVOT): 68.8 ml AV VR_phl: 0.60 JAYLA(VTI)/BSA_phl: 1.3 MV P1/2t-pr_phl: 60.0 msec Reading Physician:04:34 PM
== END ==
PROVIDERS: Family Provider Family Medicine; PCP Family Medicine; Referring Provider Family Medicine; Visit Provider Family Medicine
DX: I08.1 Rheumatic disorders of both mitral and tricuspid valves (principal); I77.810 Thoracic aortic ectasia; R55 Syncope and collapse
CPT/HCPCS: 93306

== ENCOUNTER → 2021-03-16 11:41 | Outpatient (CLI) | payer MEDICARE, OTHER, SELFPAY ==
[2021-01-26 20:37] VITALS: BMI 29.8
[2021-03-16 13:45] LABS: COVID19 -Nasal RAPID Negative (Negative)
== END ==
PROVIDERS: Family Provider Family Medicine; PCP Family Medicine; Referring Provider Specialist; Visit Provider Specialist
DX: Z20.822 Contact with and (suspected) exposure to COVID-19 (principal)
CPT/HCPCS: 87635; C9803

== ENCOUNTER → 2021-03-26 13:49 | Outpatient (CLI) | payer MEDICARE, OTHER, SELFPAY ==
[2021-03-16 13:05] VITALS: BMI 29.8
--- NOTE | 2021-04-17 16:02 | P.HOLT.S_ITS ---
Physician Assistant Surgery Report Referral & Results Date Patient Seen: 03/26/21 Requesting provider: Annetat Sanabria Indication: Syncope Duration of monitoring (days): 14 Diary information: There are no patient events to review Data: Minimum heart rate identified was 52 beats per minute at 11:10 on 04/02/2021 Maximum sinus heart rate was 110 beats per minute at 14:17 on 04/02/2021 Maximum overall heart rate was 129 beats per minute at 14:41 on 04/02/2021 during a run of SVT/atrial tachycardia Approximately 1.3% of identified beats were supraventricular ectopic in origin which would classify them as occasional Less than 1% of identified beats were ventricular ectopic in origin with classify them as rare There were 13 runs of SVT the fastest being a 9 beat run at the rate above, 129 beats per minute, the longest lasting 8 beats at a rate of 99 beats per minute which suggest more atrial tachycardia than true SVT No atrial fibrillation or pauses were identified on this study Impression: 14 day cardiac rehabilitation specialist demonstrating very rare very brief runs of SVT/atrial ta chycardia No etiology for syncope identified on this study
== END ==
PROVIDERS: Family Provider Family Medicine; PCP Family Medicine; Referring Provider Family Medicine; Visit Provider Family Medicine
DX: R55 Syncope and collapse (principal)
CPT/HCPCS: 93246; 93248

== ENCOUNTER → 2021-03-30 11:33 | Outpatient (CLI) | payer MEDICARE, OTHER, SELFPAY ==
[2021-03-16 13:05] VITALS: BMI 29.8
[2021-03-30 12:08] LABS: COVID19 -Nasal RAPID Negative (Negative)
== END ==
PROVIDERS: Family Provider Family Medicine; PCP Family Medicine; Visit Provider Urology
DX: Z20.822 Contact with and (suspected) exposure to COVID-19 (principal)
CPT/HCPCS: 87635; C9803

== ENCOUNTER 2021-04-02 09:08 | Day surgery (SDC) | payer MEDICARE, OTHER, SELFPAY ==
[2021-01-26 20:37] VITALS: BMI 29.8
[2021-03-16 13:05] VITALS: BMI 29.8
[2021-03-19 10:57] VITALS: BMI 29.2
[2021-04-02] VITALS (9 sets, daily range): BP systolic 121–162; BP diastolic 65–102; PULSE 48–68; RESP 10–16; TEMP 36.4–36.7; O2SAT 92–98; BMI 29.2
--- NOTE | 2021-04-02 | PATH_ITS ---
[facility] Accession Number: [id number] . 01 Material submitted: . foreskin - FORESKIN . 01 Diagnosis: Foreskin, Excision: Foreskin with areas of erosion with granulation tissue formation and acute and chronic inflammation with plasma cells. . Note: While non specific, the findings are consistent with phimosis. Clinicopathologic correlation is advised. MRV 04/07/2021 0939 Local . 01 Comment: The histologic material was reviewed with Dr. Yudith Watt, who concurs. . 01 Electronically signed: . Laura Alcaraz MD, Dermatopathologist NPI- [id number] . 01 Gross description: . Received in formalin labeled with the patient's name and additionally labeled foreskin is an irregular portion of miramontes-brown, wrinkled skin measuring 9.0 x 4.0 cm, excised to a depth of 0.6 cm. A few small foci of paler appearing skin is seen, but no defined masses or lesions are identified. The specimen is sectioned revealing unremarkable cut surfaces. Briquetter Operator sections are submitted in cassettes A1 and A2. ([id number]) /FRR 04/04/2021 181 Local . 01 Pathologist provided ICD-10: N47.1 . 01 CPT . 099585 Specimen Comment: A courtesy copy of this report has been sent to [phone] Performed at: 01 [facility] [address] [place] [address], [place], [place] [id number] MD Eusebio Rothman MD Phone: [phone]
[2021-04-02] MEDS: LACTATED RINGERS 1,000 ML 42 ML IV (10:06)
--- NOTE | 2021-04-02 10:16 | SUR.OPER ---
Supine on padded OR bed, head on pillow, arms secured on padded arm boards at <90 degrees abduction, legs uncrossed, safety belt at thigh, tape over blanket over lower legs.
--- NOTE | 2021-04-02 10:22 | PM.PREOP ---
Pre-operative Note COVID-19 COVID-19 status: Negative Result date/Date tested (Pos, Neg/Pending): 03/30/21 Criteria for continued procedure: Expected advancement of disease process, Delay expected to result in less-positive ultimate med/surg outcome and Non-surgical alternatives not available or appropriate per current SOC Interval Note History & Physical reviewed/Exam performed by Physician: Yes Changes to H&P: No
[2021-04-02] MEDS: CEFAZOLIN 2 GM/20 ML SYRINGE IV (10:27)
[2021-04-02] MEDS: BUPIVACAINE 0.5% (PF) VIAL 30 ML INJ (10:49)
[2021-04-02] MEDS: BACITRACIN 28 GM OINT 1 APPLIC TOP (10:49)
--- NOTE | 2021-04-02 11:50 | PM.OP.1 ---
Procedure & Clinicians Procedure: Circumcision and flexible cystoscopy Same procedure as scheduled: Yes Indications: This is a very pleasant 80-year-old male who presented with complaints of gross hematuria and phimosis. He presents at this time for circumcision and flexible cystoscopy. The flexible cystoscopy to complete his hematuria workup and the circumcision to treat his significant and profound phimosis. Surgeon: Raimundo Mishra Click Yes if Unassisted: Yes Anesthesia Type: General Operative Notes Findings: At cystoscopy: The urethra was normal with normal mucosa. The prostate exhibited moderate approaching severe obstructive character. Mucosa throughout was normal. Ureteral orifices in normal position with clear efflux. There was severe trabeculation and cellules. The mucosa was normal there were no papillary lesions, no stones, no evidence of fistula, no distinct etiology for his gross hematuria. At circumcision: There was very tight phimosis and adhesions on the dorsal aspect of the glans which required being released to expose the coronal sulcus. There were no other abnormalities. Closure Type: primary Specimen(s): other (Foreskin) Prosthetic devices, grafts, tissues, transplants, or devices: None Estimated Blood Loss (mL): 10 Procedure in detail: After informed consent was obtained, the patient was identified and brought to the operating room. He was then placed in a supine position on the operating table and anesthesia was induced and maintained. After induction of anesthesia the patient was prepped, draped and prepared in a sterile fashion for flexible cystoscopy and circumcision. After time-out and ensuring an adequate level of anesthesia the flexible cystoscope was passed through the urethra prostate and into the bladder under direct vision. Flexible cystoscopy was performed including a retroflex maneuver. With the findings and hand the scope was removed and the patient was catheterized with a 22 Macanese straight catheter to drain his bladder. Attention was then turned to doing the circumcision. The line of incision was marked on the shaft skin. Using a a straight hemostat a dorsal slit was performed and the foreskin was retracted and Hibiclens applied. The adhesions then were released by blunt and sharp dissection. Points of bleeding were controlled with electrocautery. The coronal sulcus incision was then made circumferentially. The foreskin was once again reduced the penile shaft skin was incised. The skin was then undermined in the dorsal midline from the coronal sulcus to the penile shaft incision. The sleeve of skin was then removed with electric cautery dissection. Points of bleeding were controlled with electrocautery. Skin edges were reroute approximated with interrupted 2-0 chromic gut suture. The incision was infiltrated with 0.25% Marcaine plain. Bacitracin and dressing was applied. The patient was awakened having tolerated the procedure well. The foreskin had been for to pathology for pathologic examination. The patient was transferred to the postanesthesia care unit having tolerated the procedure well to be discharged home to follow-up in my office in approximately 10 days. There were no complications Complications: none Post-operative Condition: stable Disposition: PACU Plan for aftercare: Patient to be discharged home to follow up my office in approximately 10 days.
--- NOTE | 2021-04-02 12:30 | SUR.PHASEI ---
Pt to PACU at 1153 awake and drowsy breathing unassisted on room air. Remained awake, declining water or liquids, pain and nausea. SBAR report at bedside to Ishmael Murdock. Pt transfered to OPD.
== END 2021-04-02 13:10 | disposition home or self-care (01) ==
PROVIDERS: Family Provider Family Medicine; PCP Family Medicine; Referring Provider Urology; Visit Provider Urology
PROC: (CPT 54161; principal; 2021-04-02 10:45)
DX: N47.1 Phimosis (principal); R31.0 Gross hematuria; Z87.891 Personal history of nicotine dependence; R33.9 Retention of urine, unspecified; G47.30 Sleep apnea, unspecified; I10 Essential (primary) hypertension; E03.9 Hypothyroidism, unspecified; G25.81 Restless legs syndrome
CPT/HCPCS: 54161; 52000; J0690; J2405; J2704; J3010

== ENCOUNTER → 2021-09-24 11:36 | Outpatient (CLI) | payer MEDICARE, OTHER, SELFPAY ==
[2021-04-14 16:00] VITALS: BMI 29.8
--- NOTE | 2021-09-24 | DI.RAD.S_ITS ---
PROCEDURE: XR RIBS LT MIN 3V W CXR1V INDICATIONS: Pleurodynia, mucus TECHNIQUE: 2 views of the left ribs were acquired, along with a single view chest. COMPARISON: None. FINDINGS: Surgical changes and devices: Surgical clips are seen projecting over the lower neck. Bones and chest wall: No acute displaced rib fracture. Degenerative changes are seen at the left acromioclavicular and glenohumeral joints. No suspicious bony lesions. Overlying soft tissues appear unremarkable. Lungs and pleura: Horizontal opacities are seen in the lower lung zones bilaterally most likely representing atelectasis. Mediastinum: Mediastinal contours appear normal. Heart size is normal. IMPRESSION: 1. No acute displaced rib fracture identified radiographically. 2. Low lung volumes bilaterally with bibasilar atelectasis. Dictated by: Lester Contreras M.D. on 09/24/2021 at 13:22 Approved by: Lester Contreras M.D. on 09/24/2021 at 13:25
== END ==
PROVIDERS: Family Provider Family Medicine; PCP Family Medicine; Referring Provider Family Medicine; Visit Provider Family Medicine
DX: R07.81 Pleurodynia (principal)
CPT/HCPCS: 71101

== ENCOUNTER → 2022-01-01 11:50 | Outpatient (CLI) | payer MEDICARE, OTHER, SELFPAY ==
[2021-04-14 16:00] VITALS: BMI 29.8
--- NOTE | 2022-01-01 | DI.RAD.S_ITS ---
PROCEDURE: XR FOOT RT MIN 3V INDICATIONS: right foot pain TECHNIQUE: 3 views of the foot were acquired. COMPARISON: None. FINDINGS: Bones: No fractures or dislocations. No suspicious bony lesions. Soft tissues: No tibiotalar joint effusion. Achilles tendon appears normal. IMPRESSION: No trauma found, source of pain is not seen. Dictated by: Koby Wilson M.D. on 01/01/2022 at 14:25 Approved by: Koby Wilson M.D. on 01/01/2022 at 14:26
== END ==
PROVIDERS: Family Provider Family Medicine; PCP Family Medicine; Referring Provider Podiatrist Foot & Ankle Surgery; Visit Provider Podiatrist Foot & Ankle Surgery
DX: M79.671 Pain in right foot
CPT/HCPCS: 73630

== ENCOUNTER → 2022-03-02 10:34 | Outpatient (CLI) | payer MEDICARE, OTHER, SELFPAY ==
[2021-04-14 16:00] VITALS: BMI 29.8
--- NOTE | 2022-03-02 | DI.CT.S_ITS ---
PROCEDURE: CT UE RT WO CON INDICATIONS: Primary osteoarthritis, right shoulder TECHNIQUE: Noncontrast 1-1.5 mm thick sections acquired from the acromioclavicular joint to the inferior scapula, with coronal and sagittal reformatting. COMPARISON: [facility], CR, XR SHOULDER 2+ VIEWS RIGHT, 02/23/2022, 13:26. [facility], CT, CT UE RT WO CON, 10/10/2017, 11:29. FINDINGS: Image quality: Excellent. Bones: Moderate acromioclavicular joint osteoarthritis is seen with significant joint space narrowing, subchondral sclerosis and marginal osteophyte formation. Moderate to severe glenohumeral joint osteoarthritic changes also seen with near complete loss of mid to inferior joint space, extensive subchondral sclerosis and prominent inferior marginal osteophyte formation. No acute fracture or dislocation is seen. No suspicious intraosseous lesion. Visualized right upper ribs are intact. Soft tissues: There is no gross full-thickness rotator cuff tendon rupture. Mild supraspinatus muscle atrophy is noted on sagittal images. There is suggestion of small to moderate amount of joint effusion and subacromial subdeltoid bursal fluid. Small to moderate subcoracoid bursal fluid is also noted. There are numerous calcifications seen within subcoracoid bursa and glenohumeral joint space concerning for loose bodies. No axillary lymphadenopathy by size criteria. Visualized right lung field is clear. IMPRESSION: 1. Moderate to severe glenohumeral joint osteoarthritis and moderate acromioclavicular joint osteoarthritis. No fracture or dislocation. No suspicious bony lesions. 2. Small to moderate amount of joint effusion and subacromial subdeltoid bursal fluid. Small to moderate subcoracoid bursal fluid. Suggestion of multiple loose bodies within glenohumeral joint and subcoracoid bursa are seen. 3. No definite full-thickness rotator cuff tendon rupture. Mild supraspinatus muscle atrophy. No other abnormal soft tissue calcifications. Dictated by: Rosas Devlin M.D. on 03/02/2022 at 14:33 Approved by: Rosas Devlin M.D. on 03/02/2022 at 14:37
== END ==
PROVIDERS: Family Provider Family Medicine; PCP Family Medicine; Referring Provider Orthopaedic Surgery; Visit Provider Orthopaedic Surgery
DX: M19.011 Primary osteoarthritis, right shoulder (principal); M25.411 Effusion, right shoulder
CPT/HCPCS: 73200

== ENCOUNTER → 2022-05-04 09:42 | Outpatient (CLI) | payer MEDICARE, OTHER, SELFPAY ==
[2021-04-14 16:00] VITALS: BMI 29.8
== END ==
PROVIDERS: Family Provider Family Medicine; PCP Family Medicine; Visit Provider Physician Assistant
DX: R35.0 Frequency of micturition (principal)
CPT/HCPCS: 87086

== ENCOUNTER 2022-05-26 13:17 | Observation (INO) | payer MEDICARE, OTHER, SELFPAY ==
[2021-04-14 16:00] VITALS: BMI 29.8
[2022-05-20 08:26] VITALS: BMI 25.8
[2022-05-26] VITALS (13 sets, daily range): BP systolic 85–147; BP diastolic 48–87; PULSE 57–64; RESP 12–18; TEMP 36.1–36.9; O2SAT 92–99; BMI 25.8
--- NOTE | 2022-05-26 06:00 | DI.RAD.S_ITS ---
PROCEDURE: XR SHOULDER RT 1V INDICATIONS: RTSA TECHNIQUE: 1 views of the shoulder were acquired. COMPARISON: [facility], CT, CT UE RT WO CON, 03/02/2022, 10:44. FINDINGS: Left shoulder arthroplasty with prosthesis in anatomic alignment. Overlying skin postsurgical changes are noted. Suspect old right 8th rib fracture. IMPRESSION: Right shoulder arthroplasty. Dictated by: Lorenzo Rodríguez M.D. on 05/26/2022 at 18:32 Approved by: Lorenzo Rodríguez M.D. on 05/26/2022 at 18:33
[2022-05-26] MEDS: LACTATED RINGERS 1,000 ML 42 ML IV ×2 (13:52→16:28)
[2022-05-26] MEDS: ACETAMINOPHEN 325 MG TABLET 975 MG PO (13:53)
[2022-05-26 14:00] LABS: COVID19 -Nasal RAPID Negative (Negative)
--- NOTE | 2022-05-26 14:18 | PM.PREOP ---
Pre-operative Note COVID-19 COVID-19 status: Negative Result date/Date tested (Pos, Neg/Pending): 05/26/22 Interval Note History & Physical reviewed/Exam performed by Physician: Yes Changes to H&P: No
[2022-05-26] MEDS: CEFAZOLIN 2 GM/100 ML PREMIX 100 ML IV ×2 (15:00→22:51)
[2022-05-26] MEDS: TRANEXAMIC ACID 1,000 MG VIAL 2000 MG INJ ×2 (15:05→16:22)
--- NOTE | 2022-05-26 15:06 | SUR.PREOP ---
Block start time [1440] . Monitoring initiated and maintained throughout procedure. Oxygen and medications given per anesthesiologist. Patient remained stable throughout procedure, no adverse reactions noted. Block end time [1450].
--- NOTE | 2022-05-26 15:21 | SUR.OPER ---
Beach chair with Cari/Ariel shoulder positioner. Lower body on padded OR bed. Head in foam padded head cradle, secured with straps. Non-operative arm secured <90 degrees abduction. Pillow under knees. Safety belt at thigh. Cloth tape over blanket over lower legs.
[2022-05-26] MEDS: EPINEPHrine 1 MG/ML 0.15 MG INJ (15:30)
[2022-05-26] MEDS: BUPIVACAINE 0.5% (PF) 30 ML VIAL INJ (15:32)
--- NOTE | 2022-05-26 16:50 | PM.OP.1 ---
Operative Date/Time/Diagnoses Date of procedure: 05/26/22 Time of procedure: 16:50 Pre-op diagnosis: Right shoulder severe osteoarthritis with large osteophytes and multiple loose bodies. Post-op diagnosis: same Procedure & Clinicians Procedure: Right reverse total shoulder replacement Same procedure as scheduled: Yes Indications: The patient has had progressively worsening right shoulder pain with radiographic changes consistent with arthritis. Non-operative management has failed and the patient has requested total shoulder replacement. The risks, benefits and alternatives to surgery were discussed with the patient prior to proceeding. Risks discussed included, but were not limited to, failure to relieve pain, stiffness, infection, nerve damage, deep venous thrombosis, pulmonary embolism, stroke, coma, heart attack, permanent paralysis and , as well as the potential need for eventual revision of the prosthetic. Reverse total shoulder will be performed due to the significant deformity in the shoulder and rotator cuff pathology. In addition it will be performed due to the patient's age. Surgeon: Hussein Carr Director Enterprise Data Architecture: Denise Reynolds Click Yes if Unassisted: No Anesthesia Type: General, Peripheral nerve block and Local Operative Notes Findings: Severe osteoarthritis with an extremely large inferior humeral osteophyte and multiple loose bodies throughout the glenohumeral joint. Closure Type: primary Specimen(s): none sent Prosthetic devices, grafts, tissues, transplants, or devices: Implants in this procedure were manufactured by the [employer] and included an RSP reverse total shoulder system with a 30 mm glenoid screw length base plate, 4 locking screws measuring 30 mm, 26 mm, 18 mm and 14 mm in length, a 36 mm neutral glenoid head with retaining screw, a 14 mm standard shell stem and a 36 mm standard +4 E +polyethylene humeral socket. Applied: implant(s) Estimated Blood Loss (mL): 100 Blood products transfused: none Tourniquet time (min): 0 Procedure in detail: The patient was seen in the preoperative area where they identified the right shoulder as the operative site and this was marked with my initials. ?They received preoperative antibiotics and underwent the induction of an interscalene block. They were taken to the operating room and placed on the operating room table in a supine position with the underwent the induction of a general anesthetic. ?There were then repositioned in the ?beach chair? position using a dedicated positioner. ?All pressure points were well padded. The knees were slightly bent to prevent tension on the sciatic nerves. A business excellence manager-out was performed The right arm was prepared from the fingertips to the base of the neck with ChloraPrep in the usual fashion and draped through sterile drapes. ?An approximately 15 cm incision was created starting at the clavicle just above the coracoid and going to the deltoid insertion. ?The deltopectoral interval was used to access the shoulder taking the vein to the medial side. The vein was protected throughout the case. The upper 1 cm of the pectoralis major was released. The biceps tendon was identified and used as a guide to releasing the remaining subscapularis. ?The biceps itself was tenodesed over the pectoralis tendon using a suture. The subscapularis was tagged for later repair. The shoulder was dislocated and a proximal humeral osteotomy performed using an extramedullary guide. A proximal humeral protector was then placed. Retractors were placed access the glenoid. ?A 360 degree release was performed of the remaining subscapularis with care being taken to protect the axillary nerve. The soft tissues were removed circumferentially around the glenoid. ?The guide was used to drill the guide hole in the center of the inferior glenoid. ?The tap was placed and used as a guide for the reamer. ?The tap was then removed and the glenoid base plate inserted. The peripheral locking screws were then placed through the appropriate guide. A trial glenoid head was applied. We then turned our attention to the humerus. The proximal humeral protector was removed. Cylindrical reamers were used to size the canal. Broaching was then performed beginning with a small broach and working up until a line to line fit with the reamer was obtained. The guide for the proximal metaphyseal reamer was then applied and the metaphysis was reamed appropriately. ?The trial metaphyseal portion of the body was then applied to the broach. ?Trial reductions were performed and the size of the glenoid head and the cup were optimized. ?Stability was checked in maximal internal and external rotation and range of motion was checked to allow access to the top of the head, internal rotation to an excess of 50? in the ?scarecrow position? and the ability to reach the groin. ?The appropriate final prosthetic components were then opened. The glenoid head was impacted into position and checked for rotational and axial stability before placing the set screw. The humeral prosthetic was then impacted into position. The humeral cup was placed. ?The joint was relocated and irrigated. The subscapularis was repaired to the lateral soft tissue remnant using [id number] sutures of #2 Ethibond. The deltopectoral interval was reapproximated with 0 Vicryl. Subcutaneous layer was closed with interrupted 3-0 Vicryl and skin with a running 3 0 V lock suture and Dermabond. Subcutaneous tissues were then infiltrated with 0.5% Marcaine for postoperative pain control. ?An Aquacel Ag dressing was applied and the patient's arm was placed in a sling. The patient was then transferred to the recovery room in good condition having tolerated the procedure well. The services of a skilled surgical scrub technician were required during this case to provide positioning, exposure and retraction to protect vital structures. Without the services of Ms. Reynolds, the procedure could not have been completed in a safe, expedient fashion. Complications: none Post-operative Condition: stable Disposition: PACU Plan for aftercare: The patient will be allowed to use his hand in front of his body below shoulder level to lift 1-2 lb for 6 weeks. He will be discharged when he is medically stable for home. This will likely be tomorrow.
[2022-05-26] MEDS: LACTATED RINGERS 1,000 ML 100 ML IV (17:47)
[2022-05-26] MEDS: ASPIRIN EC 81 MG TABLET PO (21:19)
[2022-05-26] MEDS: TAMSULOSIN 0.4 MG CAPSULE PO (21:19)
[2022-05-26] MEDS: hydroCHLOROthiazide 25 MG TABLET 12.5 MG PO (21:21)
[2022-05-26] MEDS: DONEPEZIL 5 MG TABLET 10 MG PO (21:23)
[2022-05-26] MEDS: BALSALAZIDE 750 MG 2250 EACH PO (21:24)
[2022-05-26] MEDS: OXYCODONE IR 5 MG TABLET PO (21:26)
[2022-05-26] MEDS: DOCUSATE 100 MG CAPSULE PO (21:26)
[2022-05-26] MEDS: POTASSIUM CHLORIDE 10 MEQ TAB PO (21:29)
[2022-05-26] MEDS: lisinopriL 20 MG TABLET PO (21:38)
[2022-05-26] MEDS: IBUPROFEN 600 MG TABLET PO (22:51)
[2022-05-26] MEDS: ACETAMINOPHEN 325 MG TABLET 650 MG PO (22:51)
[2022-05-27] VITALS: BP 138/78; PULSE 60; RESP 17; TEMP 36.8; O2SAT 97
[2022-05-27 00:40] VITALS: BMI 25.8
[2022-05-27] MEDS: LACTATED RINGERS 1,000 ML 100 ML IV (02:29)
[2022-05-27 04:00] VITALS: BP 111/61; PULSE 61; RESP 19; TEMP 36.6; O2SAT 94
[2022-05-27 05:11] LABS: Hematocrit 35.7 % (41-53); Hemoglobin 12.2 g/dL (13.5-17.5)
[2022-05-27] MEDS: LEVOTHYROXINE 75 MCG TABLET 150 MCG PO (05:59)
[2022-05-27] MEDS: CEFAZOLIN 2 GM/100 ML PREMIX 100 ML IV (06:00)
[2022-05-27] MEDS: MULTIVITAMIN 1 TABLET 1 TAB PO (08:16)
[2022-05-27] MEDS: POTASSIUM CHLORIDE 10 MEQ TAB PO (08:16)
[2022-05-27] MEDS: CHOLECALCIFEROL (VITAMIN D3) 1,000 UNIT TABLET 1000 UNIT PO (08:16)
[2022-05-27] MEDS: DOCUSATE 100 MG CAPSULE PO (08:16)
[2022-05-27] MEDS: hydroCHLOROthiazide 25 MG TABLET 12.5 MG PO (08:17)
[2022-05-27] MEDS: lisinopriL 20 MG TABLET PO (08:17)
[2022-05-27] MEDS: ASPIRIN EC 81 MG TABLET PO (08:17)
[2022-05-27 08:41] VITALS: BP 114/61; PULSE 93; RESP 17; TEMP 37.7; O2SAT 93
--- NOTE | 2022-05-27 08:45 | CM.DANOTE ---
DCP: Case received, EMR reviewed and met with patient. Introduced self and role. Was able to obtain information regarding patient's baseline activity visit at home prior to his surgery. DCP assessment completed with information currently available. Patient is an 81 year old male who admitted yesterday to the care of the hospitalist team. PCP: Medicare/Floresita Rios. Patient came to the hospital via private vehicle for a surgical procedure. Patient had a right reverse total shoulder replacement. Patient has history of osteoarthritis. Met with patient in his room. He is alert and oriented. He was sitting up in his chair, sling to his right shoulder in place. Confirmed that he resides here in [place] with his spouse, Mariann. At his baseline, he is independent. He mentioned that he is set up with outpatient P.T. Confirmed that his spouse will give him assistance at home. P: DCP to continue to follow. Patient will be working with P.T. today. Patient should be able to go home when deemed medically stable. Iona Desai RN/Air Purifier Servicer Discharge Planning/Care Management CM Discharge Assessment Start: 05/27/22 08:43 Freq: Status: Active Protocol: Document 05/27/22 08:43 (Rec: 05/27/22 08:45 [id number]) Discharge Planning Assessment Assigned Web Worker Iona Desai RN/Air Purifier Servicer Advance Directives? Yes Advance Directives on File Yes History Provided By Patient,Medical Record Prior Living Arrangements House Household Members spouse Type of transporation used prior to Drives own vehicle admit Comment Patient has not been driving recently, due to his shoulder pain. Independent with ADL's Yes Is patient alert and oriented? Yes Comment Uses walking sticks for walking out doors. Patient/Family Preference OP PT Therapy Barriers to Discharge No Discharge Plan Home Transportation Arrangement Family Referrals Initiated None needed If patient plan is home with home health No : Has signed face to face form been completed? If patient plan is SNF: Has PASSR been No completed? Whiteboard Updated in Patient Room with Yes name and ext. # of Web Worker Review Status In Process Next Review Type Continued Stay Review Pre-Anesthesia Assessment Start: 05/20/22 08:26 Freq: Status: Active Protocol: Document 05/20/22 08:26 CAB (Rec: 05/20/22 09:47 CAB [id number]) Pre-Anesthesia Assessment Preferred Name Urs Patient Information Reviewed Via Phone Assessment Assessment Completed With Patient Diagnostic Results BMP/CMP,CBC,EKG Comment Outside labs/EKG scanned Primary Care Provider Annetta Sanabria Seen Specialist in Last 12 Months Yes Specialist Seen Control Operator,Agriculture Inspector, Orthopedist,Urologist,Other Comment GI Primary Language Luxembourgish Preferred Language Luxembourgish Watch Train Assembler Required No Height 5 ft 9 in Weight 175 lb Body Mass Index (BMI) 25.8 Hearing Ability Hearing Impaired,Use of Hearing Aid Visual Assist Glasses Dentition Type Teeth, Natural Present Barriers to Learning Auditory,Memory Other Aids Yes Hx Anesthesia Reactions No Hx Family Anesthesia Reaction No Hx Malignant Hyperthermia No Hx Blood Transfusions No Hx Blood Transfusion Reaction No Anesthesia Review Requested Yes: Anethesia review prior to scheduling [employer] Professor No alcohol intake current alcohol intake frequency 0-2 drinks per day Smoking Status Former smoker how long ago did patient quit smoking 35 yrs ago Substance Use Type does not use Pain Present Pain Reported Musculoskeletal Symptoms Abnormal Gait,Difficulty Walking,Joint Pain,Limited Range of Motion History of Falling (Recent or History of Yes ) Patient is completely paralyzed or No completely immobile Prosthesis or Orthotic Device Cane Mental Status Oriented to own ability Is patient on oxygen? No Does patient have FU/SOB No Hx Sleep Apnea Yes: BiPAP CPAP/BIPAP use prescribed and used routinely Currently Taking a Beta Everardo No Can You Climb a Flight of Stairs Without Yes SOB Hx Chest Pain No Hx SOB No Hx Syncope or Dizziness Yes: Syncope prior to pacemaker Anti-Coagulant Therapy No Has a Control Operator Yes: Last visit 03/25/[address] Coombs Cardiac Testing Yes: Echo @ [facility] 03/05/21 Hx Pacemaker/ICD Yes: Implant 04/16/22 Pacemaker Rep Required? No: Pacer form scanned and put in surgery folder for dos Cardiac Clearance Received Yes Comment Cardiac records scanned Diet Type At Home Regular,Low Sodium Dysphagia No Gastrointestinal Symptoms None Bladder Pattern Nocturia Urinary Catheter Present No Hx Urinary Self Catheterization No Diabetes No Hx Drug Resistant Organism No Presence of External or Internal Medical Yes: Bilat eye IOLs, left knee Devices , BiPAP Have you had any close contact with No someone diagnosed with COVID-19? Received a COVID vaccine? Yes Received all doses? Yes Marital Status Lives With spouse Current Living Arrangements House Number of Floors (Floors) Two Floors Support System Spouse Comment Home caregivers will also be available Does the Patient Have Assistance After Yes Surgery Patient Discharge Plan Description Return Home Comment Pt advised overnight length of stay per surgeon Feels Safe in Current Environment Yes Been Physically Hurt or Threatened By a No Person in Current Environment Do you have thoughts of harming yourself None or others? Are you currently considering suicide? No Do you have a plan to hurt yourself or No Plan others? Do You Have Any Spiritual Beliefs That No May Affect Your HC Choices? Do You Have Any Cultural Practices That No May Affect Your HC Choices? Who Can We Speak to About Patient's Care Family, friends Identifying Code for Release of Patient Declines to issue Information Health Care Proxy/Next of Kin Mariann () Health Care Proxy Emergency Contact Name Mariann () Emergency Contact Advance Directives? Yes Advance Directives on File Yes Power of Critical Care Nurse Specialist Yes Power of Critical Care Nurse Specialist Name Estevan (son) Power of Critical Care Nurse Specialist PAC Instructions Bring CPAP/BIPAP,Durable medical equipment,Medications to take/avoid,Nasal antibiotic ,No ETOH/petroleum product on skin DOS,NPO,Pre-surgical wash ,Sensory aids,Sturdy shoes/ comfortable clothes,Do not bring valuables and remove jewelry Stop Bang Assessment Do you have, or are you being treated Yes for, high blood pressure Is your BMI more than 35 kg/m2 No Age over 50 Yes Estimated neck circumference greater No than 40cm or 16in Gender male Yes Result Negative
--- NOTE | 2022-05-27 09:26 | PM.DS.1 ---
History of Present Illness History of Present Illness Date Patient Seen: 05/27/22 Time Patient Seen: 09:15 Chief complaint: Right TSA reverse Narrative: The history and physical is contained in the chart in a previously completed note. Please refer to that note for this information. Discharge Providers Provider Date of admission: 05/26/22 13:17 Discharge Date: 05/27/22 Primary care physician: Annetta Sanabria MD Consults: 05/26/22 17:32 Consult to Discharge Planning Routine Comment: Consult to Physical Therapy Evaluate & Treat Comment: Physician Instructions: pendulums only Discharge provider: Hussein Carr MD Summary Hospital Course Discharge Diagnosis: 1. Severe right shoulder osteoarthritis with loose bodies and rotator cuff pathology 2. Post hemorrhagic anemia Hospital Course: The patient was admitted to the hospital and taken directly to the operating room on May 26, 2022. He underwent a right reverse total shoulder with removal of extensive loose bodies and osteophytes without complication. He was admitted to the hospital overnight for pain control and observation. He did well. He is ready for discharge on postoperative day 1. Status at Discharge Cognitive/behavioral status at discharge: at baseline, confused Functional status at discharge: independent ambulation Overall status at discharge: patient is progressing back to baseline Time Spent with Patient Time spent: Less than 30 minutes Exam Vital Signs (past 8 hours): - 05/27/22 04:00 05/27/22 07:00 05/27/22 08:41 Temperature 97.8 F 99.9 F H Pulse Rate 61 93 H Respiratory Rate 19 17 Blood Pressure 111/61 114/61 Pulse Oximetry 94 93 Oxygen Delivery Method Room Air Oxygen Flow Rate 2 0 Fraction of Inspired Oxygen 28 SaO2/FiO2 Ratio 339 Oxygen Delivery Method Room Air Oxygen Flow Rate 0 Narrative Exam Narrative: Right upper extremity wound is dressed with no drainage on the bandage. Light touch is intact in the radial, ulnar, median and axillary nerve distribution and slightly reduced in the muscular cutaneous distribution. He can extend his thumb, abduct his thumb, abduct his fingers and can fire his biceps and deltoid. Objective Labs 05/27/22 04:17 Labs: Laboratory Results - last 24 hr 05/26/22 05/27/22 13:35 04:17 Hgb 12.2 L Hct 35.7 L SARS-CoV-2 (PCR) Negative [facility] Medical History (Updated 05/20/22 @ 09:28 by Brittany Garcia RN) Abnormal prostate by palpation Acquired phimosis of penis Acute metabolic encephalopathy Anemia BCC (basal cell carcinoma) (2022) 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 Corneal abrasion DJD of right shoulder Excessive daytime sleepiness Gross hematuria Hearing impaired History of phimosis of penis History of tobacco use History of urinary retention History of urinary tract infection Hypertension Hypothyroidism associated with surgical procedure Lower urinary tract symptoms Lumbar spinal stenosis Male circumcision Memory changes Obstructive sleep apnea of adult Osteoarthritis 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) Pancreatic cyst PANCREATIC CYSTS Primary insomnia Rectal bleeding Restless legs syndrome (RLS) Sensitive skin Sepsis Skin cancer Snoring Surgical History (Updated 05/20/22 @ 09:22 by Brittany Garcia RN) H/O shoulder surgery History of ankle surgery History of total left knee replacement History of urologic surgery (04/02/21) Hx of bilateral cataract extraction Hx of thyroidectomy (~1989) Hx of tonsillectomy Family History Father Parkinson disease Mother Parkinson disease Sister Blood disorder Social History marital status: details: shavonne Waite number of children: 1 household members: spouse lives independently: Yes caregiver/support person: No pets and animals: No occupational status: previously employed current occupational exposures/hazards: No 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 He has a mild decrease in function in the musculocutaneous nerve this morning. This is either due to residual effects of the interscalene block which may not have fully worn off or potentially due to stretch while excising a particularly large loose body in the subscapularis bursa. He does have some function and it does not appear that this is a nerve transection. He is comfortable and anxious to go home today. Plan of Treatment: Discharge to home. We will observe his neurologic examination over the next days to weeks for recovery of the muscular cutaneous nerve. If there is intermodal customer service deficit, we will obtain an EMG/NCV as an outpatient. He will be discharged today with follow-up at my office as scheduled in 2 weeks. He has been given oxycodone as a prescription for pain relief. He has been instructed in the use of Tylenol for additional pain relief and potentially the use of tramadol which he is on at baseline. He and his are aware he should not use both oxycodone and tramadol at the same time. He has been instructed in the use of low-dose aspirin for DVT prophylaxis. Discharge Plan Discharge Plan Patient Disposition: Home Discharge orders & Medications Prescriptions: New acetaminophen 325 mg Tablet 650 mg PO Q6H Qty: 250 0RF aspirin 81 mg Tablet,Delayed Release (Dr/Ec) 81 mg PO BID Qty: 84 0RF oxycodone 5 mg Tablet 5 mg PO Q4H PRN (Reason: Pain, Moderate (4-6)) Qty: 40 0RF Continued lisinopril-hydrochlorothiazide 20 MG/12.5 MG tablet 1 tab PO BID Qty: 0 potassium chloride 10 mEq Capsule, Extended Release 10 meq PO BID Centrum Silver Ultra Men's 300-600-300 mcg Tablet 1 tab PO DAILY levothyroxine 175 mcg tablet 175 mcg PO Q OTHER DAY Rx Instructions: alternate with 150mcg levothyroxine tamsulosin 0.4 mg capsule 0.4 mg PO BEDTIME ipratropium bromide 42 mcg (0.06 %) [place],Non-Aerosol 1 spray INTRANASAL DAILY Rx Instructions: administer into each nostril donepezil 10 mg Tablet 10 mg PO QPM turmeric root extract 2,000 mg PO BID balsalazide 750 mg capsule 2,250 mg PO BID Patient Comments: Pt will bring from home levothyroxine 150 mcg tablet 150 mcg PO Q OTHER DAY Rx Instructions: alternate with 175mcg tablet cholecalciferol (vitamin D3) 25 mcg (1,000 unit) capsule 25 mcg PO DAILY Discontinued tramadol 50 mg tablet 50 mg PO BID PRN (Reason: pain) Qty: 42 1RF acetaminophen [Tylenol Arthritis Pain] 650 mg tablet extended release 650 mg PO Q8H Follow up/Referrals: Hussein Carr MD [Physician] - As previously scheduled Annetta Sanabria MD [Primary Care Provider] - Discharge Health Status Multidrug resistant organism: No MDRO Diet/Activity/Treatments Diet: Diet as Tolerated and Regular Activity: You may use your right hand in front of your body below shoulder level to lift 1-2 lb. Cold/Heat Therapy: You may apply ice to the right shoulder for 15 minutes every hour as needed for pain control. Skin/Wound/Dressing Care Report to your healthcare provider any signs of infection, such as:: chills, fever, night sweats, increased pain, unusual drainage and unusual redness Dressing: Leave the dressing intact until you are seen in the office. You may shower with the dressing in place. Please contact the office if the central portion of the dressing becomes saturated with either water or blood. Visit Report/Discharge Packet Instructions: DI for Prescription Opioid Use, DI for Shoulder Replacement Stand Alone Forms: Patient Portal/API, Surgery Discharge Discharge Data Primary Care Provider: Annetta Sanabria
--- NOTE | 2022-05-27 10:50 | PT.IIE ---
Current Diagnoses Primary osteoarthritis, right shoulder (05/26/22) Surgery Performed Operation Date: 05/26/22 14:45 Actual Procedures p Total Shoulder Arthroplasty - Reverse(Right) - Hussein Carr MD Surgical History (Last Updated 05/20/22 @ 09:22 by Brittany Garcia, RN) H/O shoulder surgery History of ankle surgery History of total left knee replacement History of urologic surgery (04/02/21) Hx of bilateral cataract extraction Hx of thyroidectomy (~1989) Hx of tonsillectomy Medical History (Last Updated 05/20/22 @ 09:28 by Brittany Garcia, RN) Abnormal prostate by palpation Acquired phimosis of penis Acute metabolic encephalopathy Anemia BCC (basal cell carcinoma) (2022) 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 Corneal abrasion DJD of right shoulder Excessive daytime sleepiness Gross hematuria Hearing impaired History of phimosis of penis History of tobacco use History of urinary retention History of urinary tract infection Hypertension Hypothyroidism associated with surgical procedure Lower urinary tract symptoms Lumbar spinal stenosis Male circumcision Memory changes Obstructive sleep apnea of adult Osteoarthritis 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) Pancreatic cyst PANCREATIC CYSTS Primary insomnia Rectal bleeding Restless legs syndrome (RLS) Sensitive skin Sepsis Skin cancer Snoring Physical Therapy Inpatient Evaluation/Re-Eval M1 PT/OT-IP Prior Functional Status Start: 05/27/22 09:57 Freq: NEEDED Status: Discharge Protocol: Document 05/27/22 10:50 [facility] (Rec: 05/27/22 13:19 [facility] [id number]) Medical Review Prior Functional Status Medical History Reviewed Yes Diet/Fluid Consistency Regular Communication WNL Mobility and Gait indep w/cane just for safety; can walk w/o it Activities of Daily Living and IADL's indep w/ADLS except helps him wash his back. Social History Household Members spouse Living Arrangements House Number of Floors (Floors) Two Floors Number of Stairs To Enter/Railing? elevator in house; 2STE w/rail R Home Environment Standard Height Toilet,Walk in Shower,Bidet Home Equipment Bedside Commode,Shower Seat without Backrest,Hand Held Shower,Grab Bars In Shower Employment Status Retired M2 PT-IP Current Condition Start: 05/27/22 09:57 Freq: NEEDED Status: Discharge Protocol: Document 05/27/22 10:50 [facility] (Rec: 05/27/22 13:19 [facility] [id number]) Physical Therapy Current Condition Current Condition Evaluation Date 05/27/22 Treatment Diagnosis R reverse TSA M3 PT-IP Subjective Start: 05/27/22 09:57 Freq: NEEDED Status: Discharge Protocol: Document 05/27/22 10:50 [facility] (Rec: 05/27/22 13:19 [facility] [id number]) Subjective Physical Therapy Visit Type Type Initial Evaluation Visit Start Time 10:07 Visit Stop Time 10:47 Total Visit Minutes 40 Number of ARROW POINT ATTACHER Visits 0 Physical Therapy Visit Comments Patient Goals go home. Pt reprots will help and present for session and attentive M4 PT-IP Mobility and Gait Start: 05/27/22 09:57 Freq: NEEDED Status: Discharge Protocol: Document 05/27/22 10:50 [facility] (Rec: 05/27/22 13:19 [facility] [id number]) PT-Bed Mobility Assessment Supine to Sit Supine to Sit Standby Assistance Scooting Scooting to Edge of Bed Independent PT-Transfer Assessment Sit to and From Stand Sit to and from Stand Standby Assistance,Use of Upper Extremities Equipment Transfer Assistive Device Gait Belt,Tripod Cane/Hurry Cane Orthotic/Prosthetic Devices or Brace: No Transfers Transfer Destination Chair Transfer Technique Stand Step Pivot Transfer Ability Level of Assist Standby Assistance Gait Assessment Gait Gait Assistance Required: Standby Assistance Distance (Feet) 300 Able to Maintain Weight Bearing Status Yes During Gait Assistive Devices Assistive Device Gait Belt,Straight Cane Orthotic/Prosthetic Devices or Brace: Yes Gait Deviations General Gait Pattern Decreased Feet Clearance Factors Limiting Gait Function Factors Limiting Gait Function Decreased Strength,Poor Balance Stair Climbing Assessment Evaluation Level of Assist On Stairs Standby Assistance Devices Stair Climbing Assistive Devices Tripod Cane/Hurry Cane,Right Railing Technique/Endurance Stair Climbing Direction Ascend and Descend Stair Climbing Technique Step to Step Number of Steps Climbed 3 Query Text: Stair Climbing Set # Repetitions (reps) 1 Comments Stair Climbing Comments up w/cane &down w/R rail SBA PT-Balance Assessment Sitting Balance and Reactions Static Sitting Balance Ability Normal Dynamic Sitting Balance Ability Normal Standing Balance and Reactions Static Standing Balance Ability Good Dynamic Standing Balance Ability Fair M5 PT-IP Objective Assessments Start: 05/27/22 09:57 Freq: NEEDED Status: Discharge Protocol: Document 05/27/22 10:50 [facility] (Rec: 05/27/22 13:19 [facility] [id number]) Orientation Orientation/Cognition Level of Alertness Alert Language Function Ability No Deficits Noted Safety Awareness Understands Safety Issues Memory Description Short Term Impaired Gross Range of Motion Upper Extremity ROM Assessment Right Impaired Lower Extremity ROM Assessment Within Functional Limits Strength Upper Extremity Strength Assessment Right Impaired Lower Extremity Strength Assessment Within Functional Limits M6 PT-IP Treatment Start: 05/27/22 09:57 Freq: NEEDED Status: Discharge Protocol: Document 05/27/22 10:50 [facility] (Rec: 05/27/22 13:19 [facility] [id number]) Physical Therapy Treatment Exercises Exercises Shoulder Pendulums,Elbow Flexion/Extension,Wrist ROM, Hand ROM Education Education Provided Precautions,Weight Bearing Status,Post-Op Packet,Safety Brace Education Donning,Zalma,Patient, Caregiver Other Treatments Other Treatment Performed edu for dressing and assisted pt and w/VC to help pt get dressed and don/doff sling M7 PT-IP Assessment and Plan Start: 05/27/22 09:57 Freq: NEEDED Status: Discharge Protocol: Document 05/27/22 10:50 [facility] (Rec: 05/27/22 13:19 [facility] [id number]) PT Summary Assessment and Plan Potential Rehabilitation Potential Excellent Status of Condition at Evaluation Evolving Summary Impairments Pain,ROM,Strength,Balance, Coordination,Bed Mobility, Transfers,Gait,Activity Tolerance Assessment Summary Pt presents day 1 R reverse TSA w/good pain control and was able to demonstrate excellent mobility and looked safe w/gait, bed mobiltiy,t ransfers and stairs. he will have his at home to help and his son is local and will also help. He did well with exercise review. Does require cues not to push w/RUE and to only use body w/pendulum but and son very aware of precautionsa nd demonstrated understanding of exercises. bought a gait belt for pt and was educate don use for when she was concerned about his mobility at all. Pt is cleared by PT to go home when medically stable. DC PT Frequency of Treatment Frequency Of Treatment Discharge Precautions Shoulder Precautions Sling,PROM,Internal Rotation to Body,No External Rotation, No Abduction,Forward Flexion to 90 degrees,Pendulums Recommendations To Nursing Amount of Assist Needed Standby Assistance Discharge Recommendations PT Discharge Recommendations Home with Assistance, Outpatient PT Transportation Needs at Discharge Private Vehicle
== END 2022-05-27 11:18 | disposition home or self-care (01) ==
PROVIDERS: Admitting Provider Orthopaedic Surgery; Family Provider Family Medicine; PCP Family Medicine; Referring Provider Orthopaedic Surgery; Visit Provider Orthopaedic Surgery
PROC: (CPT 23472; principal; 2022-05-26 14:45)
DX: M19.011 Primary osteoarthritis, right shoulder (principal); M24.011 Loose body in right shoulder; M25.711 Osteophyte, right shoulder; G89.18 Other acute postprocedural pain; Z20.822 Contact with and (suspected) exposure to COVID-19
CPT/HCPCS: 23472; 36415; 64450; 73020; 82962; 85014; 85018; 87635; 94762; 97162; 97530; 97535; C1776; C9803; G0378; G0379; J0171; J0690; J1100; J2250; J2405; J2704; J3010

== ENCOUNTER → 2022-07-06 11:18 | Outpatient (CLI) | payer MEDICARE, OTHER, SELFPAY ==
[2022-07-06 13:13] LABS: Add Manual Diff / Slide Review NO; Basophils Absolute Auto 100 /uL (0-100); Eosinophils Absolute Auto 300 /uL (0-450); Eosinophils Percent Auto 4.5 % (2-4); Hematocrit 39.2 % (41-53); Hemoglobin 13.1 g/dL (13.5-17.5); Lymphocytes Absolute Auto 1700 /uL (1100-4500); Lymphocytes Percent Auto 29.7 % (25-40); Mean Corpuscular HGB Conc 33.4 % (30-36); Mean Corpuscular Hemoglobin 29.5 PG (26-34); Mean Corpuscular Volume 88.1 fL (80-100); Monocytes Absolute Auto 500 /uL (0-900); Monocytes Percent Auto 8.6 % (3-14); Neutrophils Absolute Auto 3200 /uL (1500-7000); Neutrophils Percent Auto 56.2 % (50-75); Platelet Count 166 X10^3/uL (150-400); Red Blood Cell Count 4.45 X10^6/uL (4.5-5.9); Red Cell Distribution Width 15.3 % (11.6-14.8); White Blood Cell Count 5.7 X10^3/uL (4.5-11.0)
[2022-07-06 13:36] LABS: BUN Creatinine Ratio 31.2 (6-22); Blood Urea Nitrogen 29 mg/dL (9-20); Carbon Dioxide 36 mmol/L (22-32); Chloride 98 mmol/L (98-107); Estimated Glomerular Filt Rate > 60 mL/min (>60); Glucose 118 mg/dL (80-110); HEMOLYSIS < 15 (0-50); Potassium 3.9 mmol/L (3.4-5.1); Sodium 140 mmol/L (137-145)
[2022-07-07 09:18] LABS: x Labcorp Estim. Avg Glu (eAG) 117 mg/dL (.); x Labcorp Hemoglobin A1c 5.7 % (4.8-5.6)
== END ==
PROVIDERS: Family Provider Family Medicine; PCP Family Medicine; Referring Provider Orthopaedic Surgery Orthopaedic Surgery of the Spine; Visit Provider Orthopaedic Surgery Orthopaedic Surgery of the Spine
DX: Z01.818 Encounter for other preprocedural examination (principal); R73.9 Hyperglycemia, unspecified; Z01.812 Encounter for preprocedural laboratory examination
CPT/HCPCS: 36415; 80048; 83036; 85025

== ENCOUNTER → 2022-07-07 12:04 | Outpatient (CLI) | payer MEDICARE, OTHER, SELFPAY ==
--- NOTE | 2022-07-07 | DI.CT.S_ITS ---
PROCEDURE: CT LUMBAR SPINE WO CON INDICATIONS: Spinal stenosis, lumbar region TECHNIQUE: Noncontrast 3 mm thick sections acquired from the T12 level to the sacrum. Sagittal and coronal reformats were constructed. For radiation dose reduction, the following was used: automated exposure control. COMPARISON: [facility], MR, MR LUMBAR SPINE WO CON, 02/28/2021, 10:17. FINDINGS: Image quality: Excellent. Bones: Very mild levocurvature. 3 mm retrolisthesis of L1 on L2. Trace retrolisthesis of L2 on L3. 5 mm anterolisthesis of L4 on L5. No acute vertebral body compression fractures. No suspicious lytic or blastic bony lesions. No pars defects. T12-L1: No significant canal stenosis. Mild bilateral foraminal stenosis. L1-L2: Mild retrolisthesis of L1 on L2. Bile facet hypertrophy. Mild canal stenosis. Moderate to severe bilateral foraminal stenosis with bilateral foraminal L1 nerve root impingement. L2-L3: Trace retrolisthesis of L2 on L3. Disc bulge. Facet and ligament hypertrophy. [id number] canal stenosis. [id number] bilateral foraminal narrowing. L3-L4: Disc bulge. Facet hypertrophy. Moderate canal stenosis. Mild right foraminal narrowing. Moderate left foraminal narrowing. L4-L5: Exuberant facet hypertrophy. Mild anterolisthesis of L4 on L5. Severe canal stenosis. Moderate bilateral foraminal narrowing. L5-S1: Disc bulge. Facet hypertrophy. No significant canal stenosis. Mild right foraminal stenosis. Moderate left foraminal stenosis with flattening deformity on the exiting left L5 nerve root. Soft tissues: No retroperitoneal masses or hematomas. Visualized aorta is normal in caliber. IMPRESSION: 1. Multilevel degenerative change. Multilevel facet arthropathy, exuberant at L4-L5. 2. Canal stenosis is severe at L4-L5. There is mild canal stenosis at L1-L2, [id number] canal stenosis at L2-L3, and moderate canal stenosis at L3-L4. Dictated by: Kevin Rojo M.D. on 07/07/2022 at 15:42 Approved by: Kevin Rojo M.D. on 07/07/2022 at 15:53
== END ==
PROVIDERS: Family Provider Family Medicine; PCP Family Medicine; Referring Provider Orthopaedic Surgery Orthopaedic Surgery of the Spine; Visit Provider Orthopaedic Surgery Orthopaedic Surgery of the Spine
DX: M48.061 Spinal stenosis, lumbar region without neurogenic claudication (principal)
CPT/HCPCS: 72131

== ENCOUNTER 2022-07-29 11:00 | Outpatient (RCR) | payer MEDICARE, OTHER, SELFPAY ==
--- NOTE | 2022-07-07 16:00 | PT.OIE ---
Current Diagnoses Primary osteoarthritis, right shoulder (07/07/22) Past Medical History (Last Updated 05/20/22 @ 09:28 by Brittany Garcia RN) Abnormal prostate by palpation Acquired phimosis of penis Acute metabolic encephalopathy Anemia BCC (basal cell carcinoma) (2022) 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 Corneal abrasion DJD of right shoulder Excessive daytime sleepiness Gross hematuria Hearing impaired History of phimosis of penis History of tobacco use History of urinary retention History of urinary tract infection Hypertension Hypothyroidism associated with surgical procedure Lower urinary tract symptoms Lumbar spinal stenosis Male circumcision Memory changes Obstructive sleep apnea of adult Osteoarthritis 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) Pancreatic cyst PANCREATIC CYSTS Primary insomnia Rectal bleeding Restless legs syndrome (RLS) Sensitive skin Sepsis Skin cancer Snoring Past Surgical History (Last Updated 05/20/22 @ 09:22 by Brittany Garcia RN) H/O shoulder surgery History of ankle surgery History of total left knee replacement History of urologic surgery (04/02/21) Hx of bilateral cataract extraction Hx of thyroidectomy (~1989) Hx of tonsillectomy Visit Care Team Role Provider Type Annetta Sanabria MD Family Provider Physician Primary Care Provider Specialty: Family Practice Address: [address] [place] [address], [facility] Email: [email or web address] Hussein Carr MD Attending Provider Physician Referring Provider Specialty: Orthopedics Orthopedic Surgery Address: [address] [place] [address], [facility] Email: [email or web address] Physical Therapy Initial Evaluation PT-OP-A Visit Information Start: 07/05/22 09:02 Freq: Status: Active Protocol: Document 07/07/22 09:01 AMB (Rec: 07/07/22 09:42 AMB [id number]) Out-Patient Physical Therapy Visit Information Visit Information Visit Type Initial Evaluation Visit Start Time 09:00 Visit Stop Time 09:45 Total Visit Minutes 45 Visit Number 1 Precautions Precautions Pacemaker Protocol in forms/cards. 6 weeks: resisted elastic cords, continue active range of motion and stretching. No long lever arm exercises. PT-OP-B Current Condition Start: 07/05/22 09:02 Freq: Status: Active Protocol: Document 07/07/22 09:01 AMB (Rec: 07/07/22 09:42 AMB [id number]) Current Condition History of Current Condition Onset Date 05/26/22 Current Complaints R reverse total shoulder History of Current Condition Pt reports increased back pain s/p sleeping in the chair for the shoulder and is going to have back surgery with Dr. Barry in mid July. 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 Ambulating with SPC vs walker due to back pain . Most pain in the shoulder is in the morning after trying to sleep. Per patient sling has been d/yuki. Has been doing pendulums. Treatment Goals Patient/Caregiver Goals Improve ROM/strength Personal Factors Other Personal Factors That May Effect Pacemaker, upcoming back Therapy/Recovery JONES pabon PT-OP-K Range of Motion Start: 07/05/22 09:02 Freq: Status: Active Protocol: Document 07/07/22 15:18 AMB (Rec: 07/07/22 15:41 AMB [id number]) Shoulder Goniometric Range of Motion Shoulder Right Passive Testing Position Supine Flexion 135 Abduction 90 External Rotation at 45 degrees 30 Abduction Right Active Testing Position Sitting Flexion 105 Abduction 85 PT-OP-M Strength Start: 07/05/22 09:02 Freq: Status: Active Protocol: Document 07/07/22 15:18 AMB (Rec: 07/07/22 15:41 AMB [id number]) Shoulder Strength Shoulder Manual Muscle Testing Right Flexion 4+ Good+ Extension 4+ Good+ Abduction (C5) 4 Good External Rotation 4- Good- Internal Rotation 4- Good- Comments biceps 5/5 PT-OP-Q Treatments Start: 07/05/22 09:02 Freq: Status: Active Protocol: Document 07/07/22 15:18 AMB (Rec: 07/07/22 15:41 AMB [id number]) Therapeutic Exercises Supine Exercises 1 Supine Exercise Name serratus punch Side right Reps/Minutes 1x10 Comments AROM, cues for form Sitting Exercises shoulder flexion Sitting Exercise Name stretch on table Side bilateral Reps/Minutes 30x2 Standing Exercises t band rows Side bilateral Resistance orange Reps/Minutes 2x10 PT-OP-T Assessment and Plan Start: 07/05/22 09:02 Freq: Status: Active Protocol: Document 07/07/22 09:00 AMB (Rec: 07/07/22 16:05 AMB [id number]) Physical Therapy Assessment Rehab Potential Rehabilitation Potential Good Evaluation Complexity Number of Personal Factors/Comorbidities 3 or More Number of Body Systems Impaired 3 Clinical Presentation at Evaluation Evolving Impairments Impairments Pain,ROM,Strength Goals Two Impairment Strength Short Term Goal (STG) Alpesh will lift a plate to a tall cabinet so he can help put away dishes. STG Duration 2 weeks Bottle Booth Attendant Goal (LTG) Alpesh will be independnt and consistent with a HEP for strengthening and ROM. LTG Duration 4 weeks One Impairment ROM Short Term Goal (STG) Alpesh will improve his active shoulder flexion ROM to 130 degrees. STG Duration 2 weeks Bottle Booth Attendant Goal (LTG) Alpesh will improve his active shoulder abduction to 120 degrees. LTG Duration 6 weeks Assessment Summary Assessment Alpesh attends physical therapy 6 weeks s/p R reverse total shoulder and is scheduled for lumbar surgery in mid July. We will try to improve his strength and ROM and reduce his pain as quickly as possible before his upcoming back surgery. He is no longer using a sling and tolerated exercises well although does have pain at close to 90 degrees of both flexion and abduction. His complicated health and upcoming surgery may likely impact his ability to get the most out of therapy . Physical Therapy Plan Frequency and Duration Frequency of Treatment 2x/Week Duration of treatment (weeks) 5 Plan of Care Start Date 07/07/22 Plan of Care End Date 08/11/22 Therapeutic Interventions Therapeutic Interventions Home Exercise Program,Manual Therapy,Neuromuscular Re- education,Self-Care/Home Management,Therapeutic Activities,Therapeutic Exercises Modalities Cold Pack/Ice Massage,Hot Packs Next Visit Focus/Plan Next Note Type Treatment Note Next Visit Plan Work on gentle strengthening ( no long lever arm strengthening and no weights into abduction per protocol), progress stretching.
--- NOTE | 2022-07-07 16:00 | PT.OPPOC ---
Physical, Occupational & Speech Therapy At [facility] Current Diagnoses Primary osteoarthritis, right shoulder (07/07/22) Visit Care Team Role Provider Type Annetta Sanabria MD Family Provider Physician Primary Care Provider Specialty: Family Practice Address: [address] [place] [address], [place], [address] Email: [email or web address] Hussein Carr MD Attending Provider Physician Referring Provider Specialty: Orthopedics Orthopedic Surgery Address: [address] [place] [address], [id number] Email: [email or web address] Of [email or web address] PT-OP-T Assessment and Plan Start: 07/05/22 09:02 Freq: Status: Active Protocol: Document 07/07/22 09:00 AMB (Rec: 07/07/22 16:05 AMB [id number]) Physical Therapy Assessment Rehab Potential Rehabilitation Potential Good Evaluation Complexity Number of Personal Factors/Comorbidities 3 or More Number of Body Systems Impaired 3 Clinical Presentation at Evaluation Evolving Impairments Impairments Pain,ROM,Strength Goals Two Impairment Strength Short Term Goal (STG) Alpesh will lift a plate to a tall cabinet so he can help put away dishes. STG Duration 2 weeks Prison Goal (LTG) Urs will be independnt and consistent with a HEP for strengthening and ROM. LTG Duration 4 weeks One Impairment ROM Short Term Goal (STG) Urs will improve his active shoulder flexion ROM to 130 degrees. STG Duration 2 weeks Project Geophysicist Goal (LTG) Urs will improve his active shoulder abduction to 120 degrees. LTG Duration 6 weeks Assessment Summary Assessment Alpesh attends physical therapy 6 weeks s/p R reverse total shoulder and is scheduled for lumbar surgery in mid July. We will try to improve his strength and ROM and reduce his pain as quickly as possible before his upcoming back surgery. He is no longer using a sling and tolerated exercises well although does have pain at close to 90 degrees of both flexion and abduction. His complicated health and upcoming surgery may likely impact his ability to get the most out of therapy . Physical Therapy Plan Frequency and Duration Frequency of Treatment 2x/Week Duration of treatment (weeks) 5 Plan of Care Start Date 07/07/22 Plan of Care End Date 08/11/22 Therapeutic Interventions Therapeutic Interventions Home Exercise Program,Manual Therapy,Neuromuscular Re- education,Self-Care/Home Management,Therapeutic Activities,Therapeutic Exercises Modalities Cold Pack/Ice Massage,Hot Packs Next Visit Focus/Plan Next Note Type Treatment Note Next Visit Plan Work on gentle strengthening ( no long lever arm strengthening and no weights into abduction per protocol), progress stretching. Plan of Care Dates Plan of Care Start Date 07/07/22 Plan of Care End Date 08/11/22 Electronically Signed by: Karrie Nicole, PT 07/07/22 [id number] If you are in agreement with this Plan of Care, please return a signed and dated copy. I have reviewed this Plan of Care and certify that the skilled therapy services above are required to meet the patient?s needs. Physician Signature Date Printed Name and Credentials Clinical Instructor Signature Printed Name and Credentials
--- NOTE | 2022-07-09 15:40 | PT.OTN ---
Current Diagnoses Primary osteoarthritis, right shoulder (07/09/22) Physical Therapy Treatment Note PT-OP-A Visit Information Start: 07/05/22 09:02 Freq: Status: Active Protocol: Document 07/09/22 09:07 AMB (Rec: 07/09/22 09:46 AMB [id number]) Out-Patient Physical Therapy Visit Information Visit Information Visit Type Treatment Note Visit Start Time 09:00 Visit Stop Time 09:45 Total Visit Minutes 45 Visit Number 2 PT-OP-B Current Condition Start: 07/05/22 09:02 Freq: Status: Active Protocol: Document 07/07/22 09:01 AMB (Rec: 07/07/22 09:42 AMB [id number]) Current Condition History of Current Condition Onset Date 05/26/22 Current Complaints R reverse total shoulder History of Current Condition Pt reports increased back pain s/p sleeping in the chair for the shoulder and is going to have back surgery with Dr. Barry in mid July. 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 Ambulating with SPC vs walker due to back pain . Most pain in the shoulder is in the morning after trying to sleep. Per patient sling has been d/yuki. Has been doing pendulums. Treatment Goals Patient/Caregiver Goals Improve ROM/strength Personal Factors Other Personal Factors That May Effect Pacemaker, upcoming back Therapy/Recovery JONES pabon PT-OP-C Subjective Start: 07/05/22 09:02 Freq: Status: Active Protocol: Document 07/09/22 09:07 AMB (Rec: 07/09/22 09:46 AMB [id number]) OP-PT Subjective Patient Comments Patient Comments Pt reports has been using weight with serratus punch exercise. PT-OP-K Range of Motion Start: 07/05/22 09:02 Freq: Status: Active Protocol: Document 07/07/22 15:18 AMB (Rec: 07/07/22 15:41 AMB [id number]) Shoulder Goniometric Range of Motion Shoulder Right Passive Testing Position Supine Flexion 135 Abduction 90 External Rotation at 45 degrees 30 Abduction Right Active Testing Position Sitting Flexion 105 Abduction 85 PT-OP-M Strength Start: 07/05/22 09:02 Freq: Status: Active Protocol: Document 07/07/22 15:18 AMB (Rec: 07/07/22 15:41 AMB [id number]) Shoulder Strength Shoulder Manual Muscle Testing Right Flexion 4+ Good+ Extension 4+ Good+ Abduction (C5) 4 Good External Rotation 4- Good- Internal Rotation 4- Good- Comments biceps 5/5 PT-OP-Q Treatments Start: 07/05/22 09:02 Freq: Status: Active Protocol: Document 07/09/22 09:07 AMB (Rec: 07/09/22 09:46 AMB [id number]) Therapeutic Exercises Supine Exercises 1 Supine Exercise Name serratus punch Side right Resistance 3# Reps/Minutes 1x10 Comments heavy cues for form Sidelying Exercises AROM Sidelying Exercise Name ER AROM Reps/Minutes 2x10 Comments cues for form Sitting Exercises shoulder flexion Sitting Exercise Name stretch on table Side bilateral Reps/Minutes 30x2 Standing Exercises t band IR Resistance orange Reps/Minutes 2x10 pec stretch Standing Exercise Name 45 d abduction at corner or doorway Reps/Minutes 30x3 t band rows Side bilateral Resistance green Reps/Minutes 2x10 Manual Therapy Treatment Manual Techniques 1 Type passive stretching into flexion Comments gentle PT-OP-T Assessment and Plan Start: 07/05/22 09:02 Freq: Status: Active Protocol: Document 07/09/22 15:33 AMB (Rec: 07/09/22 15:36 AMB [id number]) Physical Therapy Assessment Goals Two Impairment Strength Short Term Goal (STG) Urs will lift a plate to a tall cabinet so he can help put away dishes. STG Duration 2 weeks Manager Engagement Goal (LTG) Urs will be independnt and consistent with a HEP for strengthening and ROM. LTG Duration 4 weeks One Impairment ROM Short Term Goal (STG) Urs will improve his active shoulder flexion ROM to 130 degrees. STG Duration 2 weeks Halfway Goal (LTG) Urs will improve his active shoulder abduction to 120 degrees. LTG Duration 6 weeks Assessment Summary Assessment Pt is [place] despite hearing aids . Does better with physical cues rather than verbal as does have a tendency to want to compensate. Given written handout for IR, ER and pec stretch. Physical Therapy Plan Frequency and Duration Frequency of Treatment 2x/Week Duration of treatment (weeks) 5 Plan of Care Start Date 07/07/22 Plan of Care End Date 08/11/22 Therapeutic Interventions Therapeutic Interventions Home Exercise Program,Manual Therapy,Neuromuscular Re- education,Self-Care/Home Management,Therapeutic Activities,Therapeutic Exercises Modalities Cold Pack/Ice Massage,Hot Packs Next Visit Focus/Plan Next Note Type Treatment Note Next Visit Plan Work on gentle strengthening ( no long lever arm strengthening and no weights into abduction per protocol), progress stretching.
--- NOTE | 2022-07-14 12:54 | PT.OTN ---
Current Diagnoses Primary osteoarthritis, right shoulder (07/14/22) Physical Therapy Treatment Note PT-OP-A Visit Information Start: 07/05/22 09:02 Freq: Status: Active Protocol: Document 07/14/22 11:40 SW (Rec: 07/14/22 12:54 SW [id number]) Out-Patient Physical Therapy Visit Information Visit Information Visit Type Treatment Note Visit Start Time 11:49 Visit Stop Time 12:30 Total Visit Minutes 41 Visit Number 3 Number of IN ROOM DINING SERVER Visits 1 Precautions Precautions Pacemaker Protocol in forms/cards. 6 weeks: resisted elastic cords, continue active range of motion and stretching. No long lever arm exercises. PT-OP-B Current Condition Start: 07/05/22 09:02 Freq: Status: Active Protocol: Document 07/07/22 09:01 AMB (Rec: 07/07/22 09:42 AMB [id number]) Current Condition History of Current Condition Onset Date 05/26/22 Current Complaints R reverse total shoulder History of Current Condition Pt reports increased back pain s/p sleeping in the chair for the shoulder and is going to have back surgery with Dr. Barry in mid July. 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 Ambulating with SPC vs walker due to back pain . Most pain in the shoulder is in the morning after trying to sleep. Per patient sling has been d/yuki. Has been doing pendulums. Treatment Goals Patient/Caregiver Goals Improve ROM/strength Personal Factors Other Personal Factors That May Effect Pacemaker, upcoming back Therapy/Recovery JONES pabon PT-OP-C Subjective Start: 07/05/22 09:02 Freq: Status: Active Protocol: Document 07/14/22 11:40 SW (Rec: 07/14/22 12:54 SW [id number]) OP-PT Subjective Patient Comments Patient Comments Pt reports he is unsure he will be able to continue PT for shoulder d/t increase in pain with his back. He is in a lot of pain this date, may be from his sleeping position. PT-OP-K Range of Motion Start: 07/05/22 09:02 Freq: Status: Active Protocol: Document 07/07/22 15:18 AMB (Rec: 07/07/22 15:41 AMB [id number]) Shoulder Goniometric Range of Motion Shoulder Right Passive Testing Position Supine Flexion 135 Abduction 90 External Rotation at 45 degrees 30 Abduction Right Active Testing Position Sitting Flexion 105 Abduction 85 PT-OP-M Strength Start: 07/05/22 09:02 Freq: Status: Active Protocol: Document 07/07/22 15:18 AMB (Rec: 07/07/22 15:41 AMB [id number]) Shoulder Strength Shoulder Manual Muscle Testing Right Flexion 4+ Good+ Extension 4+ Good+ Abduction (C5) 4 Good External Rotation 4- Good- Internal Rotation 4- Good- Comments biceps 5/5 PT-OP-Q Treatments Start: 07/05/22 09:02 Freq: Status: Active Protocol: Document 07/14/22 11:40 SW (Rec: 07/14/22 12:54 SW [id number]) Therapeutic Exercises Supine Exercises 1 Supine Exercise Name serratus punch Side right Resistance 3# Equipment Used pillow behind RUE to avoid hyperextension during rest Reps/Minutes 1x10 Comments heavy cues for form Sidelying Exercises AROM Sidelying Exercise Name ER AROM Reps/Minutes 2x10 Comments cues for form Sitting Exercises AROM Sitting Exercise Name Shldr flex, ER, abd Comments verbal/tactile cues required for correct execution shoulder flexion Sitting Exercise Name stretch on table Side bilateral Reps/Minutes 30x2 Standing Exercises t band IR Standing Exercise Name Seated Resistance orange Reps/Minutes 2x10 pec stretch Standing Exercise Name 45 d abduction at corner or doorway Reps/Minutes 30x3 t band rows Standing Exercise Name Seated Side bilateral Resistance green Reps/Minutes 2x10 Self-Care/Home Management Treatment Education Patient Education Joint Protection,Pain Management,Posture Other Education Educated pt on sleeping positions and alignment of the the body with sleeping positions. He sleeps sidelying , educated on use of pillows for UE support and between knees for hip alignment to support the spine. PT-OP-T Assessment and Plan Start: 07/05/22 09:02 Freq: Status: Active Protocol: Document 07/14/22 11:40 SW (Rec: 07/14/22 12:54 SW [id number]) Physical Therapy Assessment Goals Two Impairment Strength Short Term Goal (STG) Urs will lift a plate to a tall cabinet so he can help put away dishes. STG Duration 2 weeks Lining Cementer Goal (LTG) Urs will be independnt and consistent with a HEP for strengthening and ROM. LTG Duration 4 weeks One Impairment ROM Short Term Goal (STG) Urs will improve his active shoulder flexion ROM to 130 degrees. STG Duration 2 weeks Chcf Goal (LTG) Urs will improve his active shoulder abduction to 120 degrees. LTG Duration 6 weeks Assessment Summary Assessment Pt came into session today in a lot of pain, waiting for back surgery scheduled for next month. He reports he is unsure he can continue PT for shoulder d/t pain that is carrying over to his back. He does not tolerate standing exercises well, instructed patient on seated strengthening vs standing d/t position of comfort w/ his back. Educated patient on sleeping positions, to assist with increased pain during the night. Physical Therapy Plan Frequency and Duration Frequency of Treatment 2x/Week Duration of treatment (weeks) 5 Plan of Care Start Date 07/07/22 Plan of Care End Date 08/11/22 Therapeutic Interventions Therapeutic Interventions Home Exercise Program,Manual Therapy,Neuromuscular Re- education,Self-Care/Home Management,Therapeutic Activities,Therapeutic Exercises Modalities Cold Pack/Ice Massage,Hot Packs Next Visit Focus/Plan Next Note Type Treatment Note Next Visit Plan Work on gentle strengthening ( no long lever arm strengthening and no weights into abduction per protocol), progress stretching.
--- NOTE | 2022-07-16 15:55 | PT.OTN ---
Current Diagnoses Primary osteoarthritis, right shoulder (07/16/22) Physical Therapy Treatment Note PT-OP-A Visit Information Start: 07/05/22 09:02 Freq: Status: Active Protocol: Document 07/16/22 07:37 AMB (Rec: 07/16/22 08:22 AMB [id number]) Out-Patient Physical Therapy Visit Information Visit Information Visit Type Treatment Note Visit Start Time 07:30 Visit Stop Time 08:15 Total Visit Minutes 45 Visit Number 4 PT-OP-B Current Condition Start: 07/05/22 09:02 Freq: Status: Active Protocol: Document 07/07/22 09:01 AMB (Rec: 07/07/22 09:42 AMB [id number]) Current Condition History of Current Condition Onset Date 05/26/22 Current Complaints R reverse total shoulder History of Current Condition Pt reports increased back pain s/p sleeping in the chair for the shoulder and is going to have back surgery with Dr. Barry in mid July. 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 Ambulating with SPC vs walker due to back pain . Most pain in the shoulder is in the morning after trying to sleep. Per patient sling has been d/yuki. Has been doing pendulums. Treatment Goals Patient/Caregiver Goals Improve ROM/strength Personal Factors Other Personal Factors That May Effect Pacemaker, upcoming back Therapy/Recovery JONES pabon PT-OP-C Subjective Start: 07/05/22 09:02 Freq: Status: Active Protocol: Document 07/16/22 07:37 AMB (Rec: 07/16/22 08:22 AMB [id number]) OP-PT Subjective Patient Comments Patient Comments Pt reports sit to stand is quite painful, so trying to avoid a lot of that movement with exercises. PT-OP-K Range of Motion Start: 07/05/22 09:02 Freq: Status: Active Protocol: Document 07/07/22 15:18 AMB (Rec: 07/07/22 15:41 AMB [id number]) Shoulder Goniometric Range of Motion Shoulder Right Passive Testing Position Supine Flexion 135 Abduction 90 External Rotation at 45 degrees 30 Abduction Right Active Testing Position Sitting Flexion 105 Abduction 85 PT-OP-M Strength Start: 07/05/22 09:02 Freq: Status: Active Protocol: Document 07/07/22 15:18 AMB (Rec: 07/07/22 15:41 AMB [id number]) Shoulder Strength Shoulder Manual Muscle Testing Right Flexion 4+ Good+ Extension 4+ Good+ Abduction (C5) 4 Good External Rotation 4- Good- Internal Rotation 4- Good- Comments biceps 5/5 PT-OP-Q Treatments Start: 07/05/22 09:02 Freq: Status: Active Protocol: Document 07/16/22 07:37 AMB (Rec: 07/16/22 08:22 AMB [id number]) Cardio Equipment Recumbent Elliptical (Biodex) Duration (Minutes) 5 Resistance 4 Therapeutic Exercises Supine Exercises 1 Supine Exercise Name serratus punch Side right Resistance 3# Equipment Used pillow behind RUE to avoid hyperextension during rest Reps/Minutes 1x10 Comments heavy cues for form Sidelying Exercises AROM Sidelying Exercise Name ER AROM Reps/Minutes 2x10 Comments cues for form Sitting Exercises AROM Sitting Exercise Name Shldr flex, ER, abd Comments verbal/tactile cues required for correct execution shoulder flexion Sitting Exercise Name stretch on table Side bilateral Reps/Minutes 30x2 Standing Exercises biceps cursl Resistance 3# Reps/Minutes 2x10 t band IR Standing Exercise Name Seated Resistance orange Reps/Minutes 2x10 Manual Therapy Treatment Manual Techniques 1 Type passive stretching into flexion, ER, IR Comments gentle PT-OP-T Assessment and Plan Start: 07/05/22 09:02 Freq: Status: Active Protocol: Document 07/16/22 07:37 AMB (Rec: 07/16/22 08:22 AMB [id number]) Physical Therapy Assessment Goals Two Impairment Strength Short Term Goal (STG) Urs will lift a plate to a tall cabinet so he can help put away dishes. STG Duration 2 weeks Morgue Attendant Goal (LTG) Urs will be independnt and consistent with a HEP for strengthening and ROM. LTG Duration 4 weeks One Impairment ROM Short Term Goal (STG) Urs will improve his active shoulder flexion ROM to 130 degrees. STG Duration 2 weeks Prison Goal (LTG) Urs will improve his active shoulder abduction to 120 degrees. LTG Duration 6 weeks Assessment Summary Assessment Urs is tolerating shoulder rehab well, although abduction continue to be painful so we have been very gentle with this. Worked more in supine today and limited the number of transitions and standing due to back pain. Physical Therapy Plan Frequency and Duration Frequency of Treatment 2x/Week Duration of treatment (weeks) 5 Plan of Care Start Date 07/07/22 Plan of Care End Date 08/11/22 Therapeutic Interventions Therapeutic Interventions Home Exercise Program,Manual Therapy,Neuromuscular Re- education,Self-Care/Home Management,Therapeutic Activities,Therapeutic Exercises Modalities Cold Pack/Ice Massage,Hot Packs Next Visit Focus/Plan Next Note Type Treatment Note Next Visit Plan Work on gentle strengthening ( no long lever arm strengthening and no weights into abduction per protocol), progress stretching.
--- NOTE | 2022-07-20 16:27 | PT.OTN ---
Current Diagnoses Primary osteoarthritis, right shoulder (07/20/22) Physical Therapy Treatment Note PT-OP-A Visit Information Start: 07/05/22 09:02 Freq: Status: Active Protocol: Document 07/20/22 15:32 ES (Rec: 07/20/22 16:27 ES [id number]) Out-Patient Physical Therapy Visit Information Visit Information Visit Type Treatment Note Visit Start Time 15:32 Visit Stop Time 16:12 Total Visit Minutes 40 Visit Number 5 Number of EXTENSION COURSE COUNSELOR Visits 0 PT-OP-B Current Condition Start: 07/05/22 09:02 Freq: Status: Active Protocol: Document 07/07/22 09:01 AMB (Rec: 07/07/22 09:42 AMB [id number]) Current Condition History of Current Condition Onset Date 05/26/22 Current Complaints R reverse total shoulder History of Current Condition Pt reports increased back pain s/p sleeping in the chair for the shoulder and is going to have back surgery with Dr. Barry in mid July. 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 Ambulating with SPC vs walker due to back pain . Most pain in the shoulder is in the morning after trying to sleep. Per patient sling has been d/yuki. Has been doing pendulums. Treatment Goals Patient/Caregiver Goals Improve ROM/strength Personal Factors Other Personal Factors That May Effect Pacemaker, upcoming back Therapy/Recovery JONES pabon PT-OP-C Subjective Start: 07/05/22 09:02 Freq: Status: Active Protocol: Document 07/20/22 15:32 ES (Rec: 07/20/22 16:27 ES [id number]) OP-PT Subjective Patient Comments Patient Comments Patient reported his shoulder is doing better, is able to use it more. The back is his bigger concern at the moment. PT-OP-K Range of Motion Start: 07/05/22 09:02 Freq: Status: Active Protocol: Document 07/07/22 15:18 AMB (Rec: 07/07/22 15:41 AMB [id number]) Shoulder Goniometric Range of Motion Shoulder Right Passive Testing Position Supine Flexion 135 Abduction 90 External Rotation at 45 degrees 30 Abduction Right Active Testing Position Sitting Flexion 105 Abduction 85 PT-OP-M Strength Start: 07/05/22 09:02 Freq: Status: Active Protocol: Document 07/07/22 15:18 AMB (Rec: 07/07/22 15:41 AMB [id number]) Shoulder Strength Shoulder Manual Muscle Testing Right Flexion 4+ Good+ Extension 4+ Good+ Abduction (C5) 4 Good External Rotation 4- Good- Internal Rotation 4- Good- Comments biceps 5/5 PT-OP-Q Treatments Start: 07/05/22 09:02 Freq: Status: Active Protocol: Document 07/20/22 15:32 ES (Rec: 07/20/22 16:27 ES [id number]) Therapeutic Exercises Sidelying Exercises AROM Sidelying Exercise Name ER, abd, flex AROM Reps/Minutes x10 ea Sitting Exercises Tricep extension Side right Resistance L1 band Reps/Minutes 2x10 ER Side bilateral Resistance L1 band Reps/Minutes x5 shoulder flexion Sitting Exercise Name Rail slide Side right Equipment Used stair rail Reps/Minutes x10 Standing Exercises Wall slide Side right Equipment Used Towel Reps/Minutes x10 Comments Instructed for home biceps cursl Standing Exercise Name Seated Resistance 4# Reps/Minutes 2x10 t band rows Standing Exercise Name Seated Side right Resistance orange Reps/Minutes 2x10 Manual Therapy Treatment Manual Techniques 1 Type Manual R shoulder stretching Body Position Supine Comments Flexion, gentle abduction, ER, IR PT-OP-T Assessment and Plan Start: 07/05/22 09:02 Freq: Status: Active Protocol: Document 07/20/22 15:32 ES (Rec: 07/20/22 16:27 ES [id number]) Physical Therapy Assessment Goals Two Impairment Strength Short Term Goal (STG) Urs will lift a plate to a tall cabinet so he can help put away dishes. STG Duration 2 weeks Care Home Goal (LTG) Urs will be independnt and consistent with a HEP for strengthening and ROM. LTG Duration 4 weeks One Impairment ROM Short Term Goal (STG) Urs will improve his active shoulder flexion ROM to 130 degrees. STG Duration 2 weeks Supervisor Border Department Goal (LTG) Urs will improve his active shoulder abduction to 120 degrees. LTG Duration 6 weeks Progress Towards Goals Progress Towards Goals Progressing Toward Goals Assessment Summary Assessment Patient tolerated stretching without increased pain. He tolerated exercise progression with standing AROM above shoulder level and seated bicep/tricep resistance without problem. He will benefit from further AROM and strengthening to improve functional use of dominant RUE . Physical Therapy Plan Next Visit Focus/Plan Next Note Type Treatment Note Next Visit Plan Work on gentle strengthening ( no long lever arm strengthening and no weights into abduction per protocol), progress stretching.
--- NOTE | 2022-07-22 12:40 | PT.OTN ---
Current Diagnoses Primary osteoarthritis, right shoulder (07/22/22) Physical Therapy Treatment Note PT-OP-A Visit Information Start: 07/05/22 09:02 Freq: Status: Active Protocol: Document 07/22/22 11:37 SW (Rec: 07/22/22 12:40 SW [id number]) Out-Patient Physical Therapy Visit Information Visit Information Visit Type Treatment Note Visit Start Time 11:39 Visit Stop Time 12:24 Total Visit Minutes 40 Visit Number 6 Number of VISUAL PRESENTATION MANAGER Visits 1 PT-OP-B Current Condition Start: 07/05/22 09:02 Freq: Status: Active Protocol: Document 07/07/22 09:01 AMB (Rec: 07/07/22 09:42 AMB [id number]) Current Condition History of Current Condition Onset Date 05/26/22 Current Complaints R reverse total shoulder History of Current Condition Pt reports increased back pain s/p sleeping in the chair for the shoulder and is going to have back surgery with Dr. Barry in mid July. 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 Ambulating with SPC vs walker due to back pain . Most pain in the shoulder is in the morning after trying to sleep. Per patient sling has been d/yuki. Has been doing pendulums. Treatment Goals Patient/Caregiver Goals Improve ROM/strength Personal Factors Other Personal Factors That May Effect Pacemaker, upcoming back Therapy/Recovery JONES pabon PT-OP-C Subjective Start: 07/05/22 09:02 Freq: Status: Active Protocol: Document 07/22/22 11:37 SW (Rec: 07/22/22 12:40 [id number]) OP-PT Subjective Patient Comments Patient Comments Pt reports he is able to do a lot more at home and has noticed improvement with physical therapy. He states his back is a lot better than it was before, now able to walk with no AD, shoulder exercises are going better with less back pain. PT-OP-K Range of Motion Start: 07/05/22 09:02 Freq: Status: Active Protocol: Document 07/07/22 15:18 AMB (Rec: 07/07/22 15:41 AMB [id number]) Shoulder Goniometric Range of Motion Shoulder Right Passive Testing Position Supine Flexion 135 Abduction 90 External Rotation at 45 degrees 30 Abduction Right Active Testing Position Sitting Flexion 105 Abduction 85 PT-OP-M Strength Start: 07/05/22 09:02 Freq: Status: Active Protocol: Document 07/07/22 15:18 AMB (Rec: 07/07/22 15:41 AMB [id number]) Shoulder Strength Shoulder Manual Muscle Testing Right Flexion 4+ Good+ Extension 4+ Good+ Abduction (C5) 4 Good External Rotation 4- Good- Internal Rotation 4- Good- Comments biceps 5/5 PT-OP-Q Treatments Start: 07/05/22 09:02 Freq: Status: Active Protocol: Document 07/22/22 11:37 SW (Rec: 07/22/22 12:40 SW [id number]) Therapeutic Exercises Sitting Exercises Shoulder Shrugs Sitting Exercise Name Shoulder elevation Side right Comments cues for form Tricep extension Side right Resistance L1 band Reps/Minutes 2x10 ER Side bilateral Resistance L1 band Reps/Minutes x5 AROM Sitting Exercise Name Shldr flex, ER, abd Comments verbal/tactile cues required for correct execution shoulder flexion Sitting Exercise Name Rail slide Side right Equipment Used stair rail Reps/Minutes x10 Standing Exercises Wall slide Side right Equipment Used Towel Reps/Minutes x10 biceps cursl Standing Exercise Name Seated Resistance 4# Reps/Minutes 2x10 t band IR Standing Exercise Name Seated Resistance orange Reps/Minutes 2x10 t band rows Standing Exercise Name Seated Side right Resistance orange Reps/Minutes 2x10 Manual Therapy Treatment Manual Techniques 1 Type Manual R shoulder stretching Body Position Supine Comments Flexion, gentle abduction, ER, IR PT-OP-T Assessment and Plan Start: 07/05/22 09:02 Freq: Status: Active Protocol: Document 07/22/22 11:37 (Rec: 07/22/22 12:40 [id number]) Physical Therapy Assessment Rehab Potential Rehabilitation Potential Good Evaluation Complexity Number of Personal Factors/Comorbidities 3 or More Number of Body Systems Impaired 3 Clinical Presentation at Evaluation Evolving Impairments Impairments Pain,ROM,Strength Goals Two Impairment Strength Short Term Goal (STG) Urs will lift a plate to a tall cabinet so he can help put away dishes. STG Duration 2 weeks Silviculture Teacher Goal (LTG) Urs will be independnt and consistent with a HEP for strengthening and ROM. LTG Duration 4 weeks One Impairment ROM Short Term Goal (STG) Urs will improve his active shoulder flexion ROM to 130 degrees. STG Duration 2 weeks Retirement Goal (LTG) Urs will improve his active shoulder abduction to 120 degrees. LTG Duration 6 weeks Assessment Summary Assessment Alpesh was able to tolerate all exercises this date with no increase in pain in his R shoulder or back. Heavy cues for posturing with shoulder exercises throughout session. Alpesh has noticed improved functional range with activities at home and pleased with progress he has made. Physical Therapy Plan Frequency and Duration Frequency of Treatment 2x/Week Duration of treatment (weeks) 5 Plan of Care Start Date 07/07/22 Plan of Care End Date 08/11/22 Therapeutic Interventions Therapeutic Interventions Home Exercise Program,Manual Therapy,Neuromuscular Re- education,Self-Care/Home Management,Therapeutic Activities,Therapeutic Exercises Modalities Cold Pack/Ice Massage,Hot Packs Next Visit Focus/Plan Next Note Type Treatment Note Next Visit Plan Work on gentle strengthening ( no long lever arm strengthening and no weights into abduction per protocol), progress stretching.
--- NOTE | 2022-07-27 15:29 | PT.OTN ---
Current Diagnoses Primary osteoarthritis, right shoulder (07/27/22) Physical Therapy Treatment Note PT-OP-A Visit Information Start: 07/05/22 09:02 Freq: Status: Active Protocol: Document 07/27/22 14:48 ES (Rec: 07/27/22 15:28 ES [id number]) Out-Patient Physical Therapy Visit Information Visit Information Visit Type Treatment Note Visit Start Time 14:51 Visit Stop Time 15:27 Total Visit Minutes 38 Visit Number 7 Number of SADDLE STITCHING MACHINE OPERATOR Visits 0 PT-OP-B Current Condition Start: 07/05/22 09:02 Freq: Status: Active Protocol: Document 07/07/22 09:01 AMB (Rec: 07/07/22 09:42 AMB [id number]) Current Condition History of Current Condition Onset Date 05/26/22 Current Complaints R reverse total shoulder History of Current Condition Pt reports increased back pain s/p sleeping in the chair for the shoulder and is going to have back surgery with Dr. Barry in mid July. 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 Ambulating with SPC vs walker due to back pain . Most pain in the shoulder is in the morning after trying to sleep. Per patient sling has been d/yuki. Has been doing pendulums. Treatment Goals Patient/Caregiver Goals Improve ROM/strength Personal Factors Other Personal Factors That May Effect Pacemaker, upcoming back Therapy/Recovery JONES pabon PT-OP-C Subjective Start: 07/05/22 09:02 Freq: Status: Active Protocol: Document 07/27/22 14:48 ES (Rec: 07/27/22 15:28 ES [id number]) OP-PT Subjective Patient Comments Patient Comments Patient reported his arm continues to get better and better. Is happy with his progress. Looking forward to his back surgery on 08/04. PT-OP-K Range of Motion Start: 07/05/22 09:02 Freq: Status: Active Protocol: Document 07/07/22 15:18 AMB (Rec: 07/07/22 15:41 AMB [id number]) Shoulder Goniometric Range of Motion Shoulder Right Passive Testing Position Supine Flexion 135 Abduction 90 External Rotation at 45 degrees 30 Abduction Right Active Testing Position Sitting Flexion 105 Abduction 85 PT-OP-M Strength Start: 07/05/22 09:02 Freq: Status: Active Protocol: Document 07/07/22 15:18 AMB (Rec: 07/07/22 15:41 AMB [id number]) Shoulder Strength Shoulder Manual Muscle Testing Right Flexion 4+ Good+ Extension 4+ Good+ Abduction (C5) 4 Good External Rotation 4- Good- Internal Rotation 4- Good- Comments biceps 5/5 PT-OP-Q Treatments Start: 07/05/22 09:02 Freq: Status: Active Protocol: Document 07/27/22 14:48 ES (Rec: 07/27/22 15:28 ES [id number]) Therapeutic Exercises Supine Exercises 1 Supine Exercise Name Ceiling punch Side right Resistance 4lb Equipment Used pillow under elbow to prevent hyperextension Reps/Minutes x15 Sitting Exercises Tricep extension Side right Resistance L3 band Reps/Minutes x20 ER Side bilateral Resistance L1 band Reps/Minutes x10 Standing Exercises Wall slide Side right Reps/Minutes x10 biceps cursl Standing Exercise Name Seated Resistance L3 band Reps/Minutes x20 t band IR Standing Exercise Name Seated Resistance L2 band Reps/Minutes x20 t band rows Standing Exercise Name Seated Side right Resistance L3 band Reps/Minutes x20 Manual Therapy Treatment Manual Techniques 1 Type Manual R shoulder stretching Body Position Supine Comments Flexion, gentle abduction, ER, IR PT-OP-T Assessment and Plan Start: 07/05/22 09:02 Freq: Status: Active Protocol: Document 07/27/22 14:48 ES (Rec: 07/27/22 15:28 ES [id number]) Physical Therapy Assessment Goals Two Impairment Strength Short Term Goal (STG) Urs will lift a plate to a tall cabinet so he can help put away dishes. STG Duration 2 weeks Permastone Installer Goal (LTG) Urs will be independnt and consistent with a HEP for strengthening and ROM. LTG Duration 4 weeks One Impairment ROM Short Term Goal (STG) Urs will improve his active shoulder flexion ROM to 130 degrees. STG Duration 2 weeks Permastone Installer Goal (LTG) Urs will improve his active shoulder abduction to 120 degrees. LTG Duration 6 weeks Assessment Summary Assessment Patient continues to progress with therapy, tolerating increased ROM and resistance without production of pain. Physical Therapy Plan Next Visit Focus/Plan Next Note Type Treatment Note Next Visit Plan Review HEP (patient to bring in sheets next visit) and adjust as needed. Surgery 08/04, will plan to d/c by then.
--- NOTE | 2022-07-29 12:11 | PT.OTN ---
Current Diagnoses Primary osteoarthritis, right shoulder (07/29/22) Physical Therapy Treatment Note PT-OP-A Visit Information Start: 07/05/22 09:02 Freq: Status: Active Protocol: Document 07/29/22 10:59 SW (Rec: 07/29/22 12:11 SW [id number]) Out-Patient Physical Therapy Visit Information Visit Information Visit Type Treatment Note Visit Note x 12 min late d/t parking Visit Start Time 11:12 Visit Stop Time 11:50 Total Visit Minutes 38 Visit Number 8 Number of AUTOMATIC BRINE MIXER OPERATOR Visits 1 Precautions Precautions Pacemaker Protocol in forms/cards. 6 weeks: resisted elastic cords, continue active range of motion and stretching. No long lever arm exercises. PT-OP-B Current Condition Start: 07/05/22 09:02 Freq: Status: Active Protocol: Document 07/07/22 09:01 AMB (Rec: 07/07/22 09:42 AMB [id number]) Current Condition History of Current Condition Onset Date 05/26/22 Current Complaints R reverse total shoulder History of Current Condition Pt reports increased back pain s/p sleeping in the chair for the shoulder and is going to have back surgery with Dr. Barry in mid July. 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 Ambulating with SPC vs walker due to back pain . Most pain in the shoulder is in the morning after trying to sleep. Per patient sling has been d/yuki. Has been doing pendulums. Treatment Goals Patient/Caregiver Goals Improve ROM/strength Personal Factors Other Personal Factors That May Effect Pacemaker, upcoming back Therapy/Recovery JONES pabon PT-OP-C Subjective Start: 07/05/22 09:02 Freq: Status: Active Protocol: Document 07/29/22 10:59 SW (Rec: 07/29/22 12:11 SW [id number]) OP-PT Subjective Patient Comments Patient Comments Pt reports shoulder is doing good, back is the problem. Back surgery scheduled in 1 week from today. PT-OP-K Range of Motion Start: 07/05/22 09:02 Freq: Status: Active Protocol: Document 07/07/22 15:18 AMB (Rec: 07/07/22 15:41 AMB [id number]) Shoulder Goniometric Range of Motion Shoulder Right Passive Testing Position Supine Flexion 135 Abduction 90 External Rotation at 45 degrees 30 Abduction Right Active Testing Position Sitting Flexion 105 Abduction 85 PT-OP-M Strength Start: 07/05/22 09:02 Freq: Status: Active Protocol: Document 07/07/22 15:18 AMB (Rec: 07/07/22 15:41 AMB [id number]) Shoulder Strength Shoulder Manual Muscle Testing Right Flexion 4+ Good+ Extension 4+ Good+ Abduction (C5) 4 Good External Rotation 4- Good- Internal Rotation 4- Good- Comments biceps 5/5 PT-OP-Q Treatments Start: 07/05/22 09:02 Freq: Status: Active Protocol: Document 07/29/22 10:59 SW (Rec: 07/29/22 12:11 SW [id number]) Therapeutic Exercises Supine Exercises 1 Supine Exercise Name Ceiling punch Side right Resistance 4lb Equipment Used pillow under elbow to prevent hyperextension Reps/Minutes x15 Sitting Exercises Tricep extension Side right Resistance L4 band Reps/Minutes x20 ER Side bilateral Resistance L1 band Reps/Minutes x10 AROM Sitting Exercise Name Shldr flex, ER, abd Comments verbal/tactile cues required for correct execution Standing Exercises Wall slide Side right Reps/Minutes x15 biceps cursl Standing Exercise Name Seated Resistance L4 band Reps/Minutes x20 t band IR Standing Exercise Name Seated Resistance L2 band Reps/Minutes x20 t band rows Standing Exercise Name Seated Side right Resistance L3 band Reps/Minutes x20 Other Exercises Rhythmic Stabilization Other Exercise Name shldr rhythmic stabilization Side right Resistance AUTOMATIC BRINE MIXER OPERATOR provided perturbation Comments Flex/Abd (hand placement proximal to elbow) IR/ER Manual Therapy Treatment Manual Techniques 1 Type Manual R shoulder stretching Body Position Supine Comments Flexion, gentle abduction, ER, IR PT-OP-T Assessment and Plan Start: 07/05/22 09:02 Freq: Status: Active Protocol: Document 07/29/22 10:59 SW (Rec: 07/29/22 12:11 SW [id number]) Physical Therapy Assessment Goals Two Impairment Strength Short Term Goal (STG) Urs will lift a plate to a tall cabinet so he can help put away dishes. STG Duration 2 weeks Forensic Specialist Goal (LTG) Urs will be independnt and consistent with a HEP for strengthening and ROM. LTG Duration 4 weeks One Impairment ROM Short Term Goal (STG) Urs will improve his active shoulder flexion ROM to 130 degrees. STG Duration 2 weeks Group Home Goal (LTG) Urs will improve his active shoulder abduction to 120 degrees. LTG Duration 6 weeks Assessment Summary Assessment Initiated rhythmic stabilization w/ good response , no pain. Alpesh forgot his HEP today, he has one more session before surgery and plans to bring it in for review next session. Physical Therapy Plan Frequency and Duration Frequency of Treatment 2x/Week Duration of treatment (weeks) 5 Plan of Care Start Date 07/07/22 Plan of Care End Date 08/11/22 Therapeutic Interventions Therapeutic Interventions Home Exercise Program,Manual Therapy,Neuromuscular Re- education,Self-Care/Home Management,Therapeutic Activities,Therapeutic Exercises Modalities Cold Pack/Ice Massage,Hot Packs Next Visit Focus/Plan Next Note Type Treatment Note Next Visit Plan Review HEP (patient to bring in sheets next visit) and adjust as needed. Surgery 08/04, will plan to d/c by then.
--- NOTE | 2022-08-13 13:59 | PT.OPDS ---
Current Diagnoses Primary osteoarthritis, right shoulder (07/29/22) Visit Care Team Role Provider Type Annetta Sanabria MD Family Provider Physician Primary Care Provider Specialty: Family Practice Address: [address] [place] [address], [facility], [place], [address] Email: [email or web address] Hussein Carr MD Attending Provider Physician Referring Provider Specialty: Orthopedics Orthopedic Surgery Address: [address] [place] [address], [place], [address] Email: [email or web address] Visit Number Visit Number 8 Discharge Summary PT-OP-B Current Condition Start: 07/05/22 09:02 Freq: Status: Active Protocol: Document 07/07/22 09:01 AMB (Rec: 07/07/22 09:42 AMB [id number]) Current Condition History of Current Condition Onset Date 05/26/22 Current Complaints R reverse total shoulder History of Current Condition Pt reports increased back pain s/p sleeping in the chair for the shoulder and is going to have back surgery with Dr. Barry in mid July. 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 Ambulating with SPC vs walker due to back pain . Most pain in the shoulder is in the morning after trying to sleep. Per patient sling has been d/yuki. Has been doing pendulums. Treatment Goals Patient/Caregiver Goals Improve ROM/strength Personal Factors Other Personal Factors That May Effect Pacemaker, upcoming back Therapy/Recovery JONES pabon PT-OP-C Subjective Start: 07/05/22 09:02 Freq: Status: Active Protocol: Document 07/29/22 10:59 SW (Rec: 07/29/22 12:11 SW [id number]) OP-PT Subjective Patient Comments Patient Comments Pt reports shoulder is doing good, back is the problem. Back surgery scheduled in 1 week from today. PT-OP-K Range of Motion Start: 07/05/22 09:02 Freq: Status: Active Protocol: Document 07/07/22 15:18 AMB (Rec: 07/07/22 15:41 AMB [id number]) Shoulder Goniometric Range of Motion Shoulder Right Passive Testing Position Supine Flexion 135 Abduction 90 External Rotation at 45 degrees 30 Abduction Right Active Testing Position Sitting Flexion 105 Abduction 85 PT-OP-M Strength Start: 07/05/22 09:02 Freq: Status: Active Protocol: Document 07/07/22 15:18 AMB (Rec: 07/07/22 15:41 AMB [id number]) Shoulder Strength Shoulder Manual Muscle Testing Right Flexion 4+ Good+ Extension 4+ Good+ Abduction (C5) 4 Good External Rotation 4- Good- Internal Rotation 4- Good- Comments biceps 5/5 PT-OP-T Assessment and Plan Start: 07/05/22 09:02 Freq: Status: Active Protocol: Document 08/13/22 13:53 ES (Rec: 08/13/22 13:59 ES [id number]) Physical Therapy Assessment Goals Two Impairment Strength Short Term Goal (STG) Urs will lift a plate to a tall cabinet so he can help put away dishes. STG Duration 2 weeks Halfway Goal (LTG) Urs will be independnt and consistent with a HEP for strengthening and ROM. LTG Duration 4 weeks One Impairment ROM Short Term Goal (STG) Urs will improve his active shoulder flexion ROM to 130 degrees. STG Duration 2 weeks Civil Litigation Attorney Goal (LTG) Urs will improve his active shoulder abduction to 120 degrees. LTG Duration 6 weeks Progress Towards Goals Progress Towards Goals Progressing Toward Goals Assessment Summary Assessment Patient was seen for a total of 8 PT visits s/p R TSA. He progressed well with PT, demonstrating increased ROM and strength throughout POC. He was dealing with low back pain which affecting his ability to participate in exercises, and ultimately underwent spine surgery. Patient no longer being seen for shoulder rehab at this time; will d/c from PT . Physical Therapy Plan Discharge Physical Therapy Discharge Reasons Change in Medical Status
== END 2022-09-24 15:37 ==
LOC: PHYS 11:00
PROVIDERS: Family Provider Family Medicine; PCP Family Medicine; Referring Provider Orthopaedic Surgery; Visit Provider Orthopaedic Surgery
DX: M19.011 Primary osteoarthritis, right shoulder (principal)
CPT/HCPCS: 97110; 97140; 97162; 97535

== ENCOUNTER 2022-08-04 11:04 | Inpatient (IN) | payer MEDICARE, OTHER, SELFPAY ==
[2022-07-27 09:38] VITALS: BMI 25.8
[2022-08-04] VITALS (16 sets, daily range): BP systolic 105–150; BP diastolic 55–100; PULSE 60–81; RESP 10–18; TEMP 36.1–36.7; O2SAT 92–98; BMI 25.8; BMI 28.1
--- NOTE | 2022-08-04 | DI.RAD.S_ITS ---
PROCEDURE: XR LUMBAR SPINE 2-3V INDICATIONS: L3-4 L4-5 TLIF TECHNIQUE: 3 low resolution fluoroscopic spot films of the lower lumbar spine was obtained intraoperatively COMPARISON: [facility] , XR LUMBAR SPINE 2-3V, 01/28/2021, 9:43. FINDINGS: Low resolution films show posterior belinda and screw instrumentation as well as interbody cages at L3-4 and L4-5 in good position IMPRESSION: Fluoroscopic guidance Approved by: Sb Garcia M.D. on 08/05/2022 at 12:02
[2022-08-04] MEDS: LACTATED RINGERS 1,000 ML 42 ML IV ×2 (12:37→15:37)
--- NOTE | 2022-08-04 13:57 | PM.PREOP ---
Pre-operative Note COVID-19 Criteria for continued procedure: Expected advancement of disease process, Possibility delay results in more complex future surgery or treatment, Increased loss of function, Continuing or worsening of significant or severe pain, Deterioration of the patient's condition or overall health and Delay expected to result in less-positive ultimate med/surg outcome Interval Note History & Physical reviewed/Exam performed by Physician: Yes Changes to H&P: No
[2022-08-04] MEDS: CEFAZOLIN 2 GM/100 ML PREMIX 100 ML IV (14:20)
--- NOTE | 2022-08-04 14:55 | SUR.OPER ---
Prone on spine table, head in foam head support, padded chest and pelvic supports, gel pad at knees, lower legs supported by pillows; nipples, genitalia and toes free of pressure, arms secured on foam padded arm boards at <90 degrees abduction. Tape over blanket at thigh secured to table.
[2022-08-04] MEDS: BUPIVACAINE LIPOSOME 266 MG/20 ML VIAL INJ (15:33)
[2022-08-04] MEDS: BUPIVACAINE 0.25% (PF) 30 ML, EPINEPHrine 0.15 MG INJ (15:34)
--- NOTE | 2022-08-04 19:11 | P.OP_ITS ---
Operative Date/Time/Diagnoses Date of procedure: 08/04/22 Time of procedure: 13:30 Pre-op diagnosis: 1. L3-4, L4-5 spondylolisthesis 2. L3-4, L4-5 spinal stenosis with neurogenic claudication Post-op diagnosis: same Procedure & Clinicians Procedure: 1. L3-4, L4-5 Postero-lateral and posterior interbody fusion 2. L3-4, L4-5 interbody cage placement. 3. L3-4, L4-5 decompressive laminectomy with bilateral facetecomies 4. L3-4, L4-5 Posterior segmental instrumentation 5. [place] of bone marrow from iliac crest 6. Utilization of microsurgical technique and operating microscope 7. Utilization of robotic assisted navigation Same procedure as scheduled: Yes Indications: Patient has been having chronic back pain and worsening lumbar radiculopathy and symptoms of neurogenic claudication. Patient failed multiple conservative management with worsening pain weakness and numbness in his lower extremity. Patient has been having difficulty performing activity of daily living. After discussing risks benefits of treatment options, patient elected proceed with surgery. Surgeon: Elo Barry Otr Owner Operator: Morena Diamond Click Yes if Unassisted: No Anesthesia Type: General Operative Notes Closure Type: primary Specimen(s): none sent Prosthetic devices, grafts, tissues, transplants, or devices: Globus CREO MIS screws, Rise cages Applied: catheter Estimated Blood Loss (mL): 150 Blood products transfused: none Procedure in detail: Patient was seen in the preoperative area. Risks and benefits of the surgery was discussed with the patient. Informed consent was obtained from the patient and placed in the chart. Surgical site was marked. Patient was taken to the operative room. General anesthesia was administered. Prophylactic antibiotic was given to the patient less than 30 min before the incision was made. Patient was placed into a prone position on the Aung table. Patient's back was then prepped and draped in the sterile fashion. Time-out was performed at this time. After patient was prepped and draped, patient's PSIS was palpated and marked bilaterally. Small 1 cm incision was made over the PSIS for placement of the reference probes. Two trocar was placed into the PSIS 1 on each side. The r eference probe was attached to the trocar of the reference apparatus. At this time the C-arm imaging was used to confirm AP and lateral of L3, L4-L5 vertebrae and merged the C-arm imaging using the [employer]ica robotic navigation system with the CT of the lumbar spine. After successful merging was completed and confirmed, skin marker was used to eris out the skin incision using the Acamica robotic arm. Bilateral incision was made at this time. Pre templated trajectory was used and guided using the Ac[employer] robotic navigation system for bilateral L3 L4, L5 pedicle screw placement. This was done by using the robotic arm to guide the high-speed bur to make a cortical entry point. Next a drill was placed also using the robotic arm and guided using the navigation system drilling partially through bilateral L3, L4, L5 pedicles. Next L3, L4, L5 pedicle screws it was pre templated and measured was placed onto the power auto parts delivery driver and inserted into the pedicles bilaterally. After all 6 screws were placed C-arm imaging was taken of both AP and lateral to confirm the placement. Excellent placement of the screws were confirmed and a matched precisely with the pre planned screw placement using the navigation system. MARs retractor was inserted using NAVITIME JAPANivation guidence. Globus MARS retractors was placed inside the incision and docked onto the L3, L4 lamina. Using microsurgical technique and operating microscope, a L3, L4 laminectomy and L3-4, L4-5 facetectomy was performed using a Kerrison rongeur. The laminectomy and facetectomy was performed in order to decompress patient's cauda equina as well as the nerve roots exiting at the L3-4, L4-5 level. Patient was found have severe central stenosis, severe lateral recess and neural foramen stenosis which was fully decompressed after the laminectomy facetectomy. More than 75% of the facets were removed during the process of decompression rendering L3-4, L4-5 level grossly unstable and required a fusion procedure at the same time. The disc space at L3-4, L4-5 was identified, and a total diskectomy was performed at L3-4, L4-5 level. The endplates were decorticated using a rasp and shaver. The total diskectomy and decortication was performed at L3-4, L4-5 level in order to to accomplish a L3-4, L4-5 fusion. The local bone from the laminectomy and facetectomy was saved for local bone grafting. After the total diskectomy and decortication was completed, Trifecta bone graft material was combined with local bone that was harvested earlier. At this time, a separate skin is incision was made over the iliac crest. A Jamshidi needle was inserted into the iliac crest through a separate skin incision. 5 cc of bone marrow aspiration was obtained through the separate skin incision using a Jamshidi needle from the iliac crest. The bone marrow aspiration was combined with local bone and the Trifecta bone grafting material. The bone grafting material was placed into the L3-4, L4-5 interbody space along with expandable cages. One cage each was inserted into the L3-4 L4-5 interbody space along with bone graft material. The cage was expanded to its maximum height using the torque limiting screwdriver. The disc preparation as well as the cage insertion were also performed under navigation guidance. After the cage was placed, AP and lateral C-arm imaging was taken to confirm placement of the cage and excellent position was confirmed. Globus MARS retractor was inserted and docked onto the L3-4, L4-5 posterolateral gutter on the right side. Using the power drill, posterior-lateral decortication was performed at L3-4, L4-5 level until bleeding cortical bone was identified. The remaining bone grafting material was placed into the L3-4, L4-5 posterior lateral gutter he order to accomplish posterolateral fusion at the L3- 4, L4-5 level. At this time the tulips were attached to the L3, L4-L5 pedicle screw shanks. After measuring the length of the rods, they were inserted into the tulips of the pedicle screws and locked in place using locking caps and torque limiting screwdriver bilaterally. Total 6 caps and 2 titanium rods was used in order to complete the posterior instrumentation construct. After all the hardware was placed, and confirmed with AP and lateral C-arm imaging, the wound was then irrigated with sterile normal saline and packed with Ray-Anabelle gauze for 3 min to accomplish hemostasis. After the gauze was removed the deep fascia was closed with #1 Vicryl suture. The subcutaneous layer was closed with 2-0 Vicryl. The skin was closed with skin rambo. Patient tolerated the procedure well. There were no complications. Neuro monitoring system was used to monitor patient's neurologic status throughout entire procedure. There was no disturbance of the neural monitoring signals throughout the case. The Operation could not have been safely performed without compromising the technical result or length of the procedure, without the assistance of a skilled salesperson surgical appliances. The salesperson surgical appliances was medically necessary for proper positioning, retraction and manipulation of instruments, proper exposure, surgical preparation, and manipulation of tissue. Complications: none Post-operative Condition: stable Disposition: PACU Plan for aftercare: Admit to inpatient hospital
--- NOTE | 2022-08-04 19:51 | SUR.PHASEI ---
Pt transferred to room 220 in bedf on 3L oxygen via NC. Report to Tiarra REYNOSO. Pt with cane, belongings bag, 2 hearing aids in ears and CPAP machine bag. Alert and oriented to place/situation. at bedside. Call light in reach.
[2022-08-04] MEDS: BALSALAZIDE 750 MG 2250 EACH PO (20:14)
[2022-08-04] MEDS: DOCUSATE 100 MG CAPSULE PO (20:16)
[2022-08-04] MEDS: hydroCHLOROthiazide 25 MG TABLET 12.5 MG PO (20:16)
[2022-08-04] MEDS: lisinopriL 20 MG TABLET PO (20:19)
[2022-08-04] MEDS: POTASSIUM CHLORIDE 10 MEQ TAB PO (20:20)
[2022-08-04] MEDS: SENNOSIDES 8.6 MG TABLET 17.2 MG PO (20:20)
[2022-08-04] MEDS: TAMSULOSIN 0.4 MG CAPSULE PO (20:21)
[2022-08-04] MEDS: ACETAMINOPHEN 325 MG TABLET 650 MG PO (20:26)
[2022-08-05] VITALS (7 sets, daily range): BP systolic 116–141; BP diastolic 61–71; PULSE 67–77; RESP 16–21; TEMP 36.4–36.9; O2SAT 92–95
[2022-08-05] MEDS: CEFAZOLIN 2 GM/100 ML PREMIX 100 ML IV ×2 (01:42→07:50)
[2022-08-05] MEDS: OXYCODONE IR 10 MG TABLET PO ×2 (02:17→20:39)
--- NOTE | 2022-08-05 04:28 | PC.NURSE ---
Admit/NOC Shift Note- Patient arrived to room via bed from PACU at 1945. Patient graugybut answers questions appropriatly. No complaints of pain at this time. No complaints of N/V. Dressing to back C/D/I. Patient arrived with horne cath in place. Horne patent adn set to gravity to drain. Urine clear light yellow. Patient took all evening medications whole with water without stefan. Admit questiuons done, medications reviewed, physical assessment done, and skin check completed. Safety measures inplace,. bed alartm activated. Call jama and phone within reach. Will continue to monitor.
[2022-08-05] MEDS: ACETAMINOPHEN 325 MG TABLET 650 MG PO ×3 (05:02→18:10)
[2022-08-05] MEDS: LEVOTHYROXINE 50 MCG TABLET 150 MCG PO (05:11)
[2022-08-05 05:31] LABS: Hematocrit 35.7 % (41-53)
--- NOTE | 2022-08-05 07:31 | PM.PNPO.1 ---
Subjective Subjective Date Patient Seen: 08/05/22 Time Patient Seen: 07:31 Interval history: Patient's pain is mild. Denies fever or chills. No nausea or vomiting. Patient has his home and available to assist him. Exam Vital Signs (past 8 hours): - 08/05/22 03:25 Temperature 97.6 F Pulse Rate 77 Respiratory Rate 21 Blood Pressure 141/71 H Pulse Oximetry 94 Oxygen Flow Rate 3 Oxygen Delivery Method Nasal Cannula Oxygen Flow Rate 3 Narrative Exam Narrative: 81-year-old male resting comfortably in bed in no apparent distress. Motor functions intact bilateral lower extremities. Sensation grossly intact to light touch bilateral lower extremities. Const General: cooperative and comfortable Nutritional Appearance: average body habitus Orientation: alert Resp Effort & Inspection: normal respiratory effort and able to speak in complete sentences Objective Labs 08/05/22 04:44 Labs: Laboratory Results - last 24 hr 08/05/22 04:44 Hgb 12.0 L Hct 35.7 L PFSH Medical History Abnormal prostate by palpation Acquired phimosis of penis Acute metabolic encephalopathy Afib Anemia Balanitis BCC (basal cell carcinoma) (2022) Benign prostatic hyperplasia Bladder outlet obstruction 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 Corneal abrasion Dementia DJD of right shoulder Excessive daytime sleepiness Gross hematuria Hearing impaired History of phimosis of penis History of tobacco use History of urinary retention History of urinary tract infection Hypertension Hypothyroidism associated with surgical procedure Lower urinary tract symptoms Lumbar spinal stenosis Male circumcision Memory changes Obstructive sleep apnea of adult Osteoarthritis 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) Pancreatic cyst PANCREATIC CYSTS Primary insomnia Rectal bleeding Restless legs syndrome (RLS) Sensitive skin Sepsis Skin cancer Snoring Surgical History H/O shoulder surgery History of ankle surgery 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 History of urologic surgery (04/02/21) Hx of bilateral cataract extraction Hx of thyroidectomy (~1989) Hx of tonsillectomy Family History Father Parkinson disease Mother Parkinson disease Sister Blood disorder Social History marital status: details: shavonne Waite number of children: 1 household members: spouse lives independently: Yes caregiver/support person: No pets and animals: No occupational status: previously employed current occupational exposures/hazards: No 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 posterior instrumentation-Robot Elo Barry MD Postoperative day: 1 Postoperative status: doing well Postoperative plan narrative: Multimodal pain management Mobilize with physical therapy, limit bending, lifting, twisting Discontinue Rolon catheter Discharge likely home today or tomorrow Quality VTE Deep Vein Thrombosis/Pulmonary Embolism Present on Admission: No
[2022-08-05] MEDS: MULTIVITAMIN 1 TABLET 1 TAB PO (08:44)
[2022-08-05] MEDS: APIXABAN 5 MG TABLET PO ×2 (08:44→20:39)
[2022-08-05] MEDS: POTASSIUM CHLORIDE 10 MEQ TAB PO ×2 (08:44→20:38)
[2022-08-05] MEDS: lisinopriL 20 MG TABLET PO ×2 (08:44→20:39)
[2022-08-05] MEDS: BALSALAZIDE 750 MG 2250 EACH PO ×2 (08:45→20:40)
[2022-08-05] MEDS: hydroCHLOROthiazide 25 MG TABLET 12.5 MG PO ×2 (08:45→20:40)
[2022-08-05] MEDS: DOCUSATE 100 MG CAPSULE PO ×2 (08:45→20:38)
[2022-08-05] MEDS: CHOLECALCIFEROL (VITAMIN D3) 1,000 UNIT TABLET 1000 UNIT PO (08:45)
--- NOTE | 2022-08-05 10:54 | PT.IIE ---
Current Diagnoses Spondylolisthesis, lumbar region (08/04/22) Spinal stenosis, lumbar region with neurogenic claudication (08/04/22) Surgery Performed Operation Date: 08/04/22 13:00 Actual Procedures p L3-4, L4-5 TLIF w. posterior instrumentation-Robot - Elo Barry MD Surgical History (Last Reviewed 08/05/22 @ 07:32 by Abhay Nuñez PA-C) H/O shoulder surgery History of ankle surgery 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 History of urologic surgery (04/02/21) Hx of bilateral cataract extraction Hx of thyroidectomy (~1989) Hx of tonsillectomy Medical History (Last Reviewed 08/05/22 @ 07:32 by Abhay Nuñez PA-C) Abnormal prostate by palpation Acquired phimosis of penis Acute metabolic encephalopathy Afib Anemia Balanitis BCC (basal cell carcinoma) (2022) Benign prostatic hyperplasia Bladder outlet obstruction 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 Corneal abrasion Dementia DJD of right shoulder Excessive daytime sleepiness Gross hematuria Hearing impaired History of phimosis of penis History of tobacco use History of urinary retention History of urinary tract infection Hypertension Hypothyroidism associated with surgical procedure Lower urinary tract symptoms Lumbar spinal stenosis Male circumcision Memory changes Obstructive sleep apnea of adult Osteoarthritis 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) Pancreatic cyst PANCREATIC CYSTS Primary insomnia Rectal bleeding Restless legs syndrome (RLS) Sensitive skin Sepsis Skin cancer Snoring Physical Therapy Inpatient Evaluation/Re-Eval M1 PT/OT-IP Prior Functional Status Start: 08/05/22 12:53 Freq: NEEDED Status: Active Protocol: Document 08/05/22 10:54 AB (Rec: 08/05/22 13:08 AB [id number]) Medical Review Prior Functional Status Medical History Reviewed Yes Mobility and Gait spouse in rooo and provided PLOF and home set up. pt with memory issues and confusion and refers to his spouse for answers. spouse stated that pt is modified independent with mobility using a hurrycane indoors but uses his 4WW for outdoor mobility Activities of Daily Living and IADL's Pt at times needing asisst for LB dressing needs and to assist to wash his back. Social History Household Members spouse Living Arrangements House Number of Floors (Floors) Two Floors Number of Stairs To Enter/Railing? has 1 step to enter the house; has an elevator inside the house to get to 2nd level bedroom Home Environment Standard Height Toilet,Walk in Shower,Built-In Shower Seat, Bidet Home Equipment Four Wheel Walker,Hand Held Shower,Grab Bars Near Toilet, Grab Bars In Shower Additional Social History Comment has a hurrycane M2 PT-IP Current Condition Start: 08/05/22 12:53 Freq: NEEDED Status: Active Protocol: Document 08/05/22 10:54 AB (Rec: 08/05/22 13:08 AB [id number]) Physical Therapy Current Condition Current Condition Evaluation Date 08/05/22 Treatment Diagnosis s/p L3-4, L4-5 TLIF; difficulty in walking Onset Date 08/04/22 M3 PT-IP Subjective Start: 08/05/22 12:53 Freq: NEEDED Status: Active Protocol: Document 08/05/22 10:54 AB (Rec: 08/05/22 13:08 AB [id number]) Subjective Physical Therapy Visit Type Type Initial Evaluation Visit Start Time 10:54 Visit Stop Time 11:35 Total Visit Minutes 41 Number of MANAGER COMMUNITY DEVELOPMENT Visits 0 Physical Therapy Visit Comments Patient Comments agreeable to do PT Therapy Pain Assessment Pain When Pain Assessed During Mobility Pain Present Pain Present Pain Reported Location Back Scale Used pain scale not stated Pain Management Techniques Distraction,Modification of Treatment,Re-positioning, Timing of Activity with Medications M4 PT-IP Mobility and Gait Start: 08/05/22 12:53 Freq: NEEDED Status: Active Protocol: Document 08/05/22 10:54 AB (Rec: 08/05/22 13:08 AB [id number]) PT-Bed Mobility Assessment Rolling Type of Rolling Log Rolling Level of Assist Moderate Assistance Supine to Sit Supine to Sit Maximum Assistance,1 Person Assistance,Bedrails PT-Transfer Assessment Sit to and From Stand Sit to and from Stand Moderate Assistance,1 Person Assistance,Use of Upper Extremities Equipment Transfer Assistive Device Gait Belt,Front Wheeled Walker Orthotic/Prosthetic Devices or Brace: No Transfers Transfer Destination Chair Transfer Technique ambulated Transfer Ability Level of Assist Moderate Assistance,1 Person Assistance,Use of Upper Extremities Comments Mobility Comments pt in bed and spouse in room with pt. educated on on back precautions and log roll bed mobility. pt can be impulsive . BP ins upine: 127/57. completed supine to sit log roll max A and max cues. pt with difficulty using RUE to push and has h/o TSA just last may of this year. pt able to sit on EOB SBA. completed sit to stand mod A and ambulated in room using FWW mod A ~ 15 ft. presents with unsteady antalgic gait with increase L knee flexion during ambulation. pt agreed to sit up on the chair. positioned on the chair. call light and table placed within reach. informed spouse regarding pt's mobility assistance and d/c plan. agreed to do caregiver training this afternoon if appropriate. informed case specialist regarding possible SNF rehab but depending on caregiver training. Gait Assessment Gait Gait Assistance Required: Moderate Assistance Distance (Feet) 15 Able to Maintain Weight Bearing Status Yes During Gait Assistive Devices Assistive Device Gait Belt,Front Wheeled Walker Orthotic/Prosthetic Devices or Brace: No Gait Deviations General Gait Pattern Decreased Stride Length, Decreased Feet Clearance,Step- to Gait Factors Limiting Gait Function Factors Limiting Gait Function Decreased Activity Tolerance, Decreased Strength,Difficulty Following Directions,Limited Range of Motion,Pain,Poor Balance,Poor Safety Awareness PT-Balance Assessment Sitting Balance and Reactions Static Sitting Balance Ability Good Dynamic Sitting Balance Ability Good Standing Balance and Reactions Static Standing Balance Ability Fair Dynamic Standing Balance Ability Poor Device Used FWW M5 PT-IP Objective Assessments Start: 08/05/22 12:53 Freq: NEEDED Status: Active Protocol: Document 08/05/22 10:54 AB (Rec: 08/05/22 13:08 AB [id number]) Orientation Orientation/Cognition Level of Alertness Alert Orientation Name,Place,Situation Language Function Ability Hard of Hearing Safety Awareness Decreased Safety Awareness Memory Description Short Term Impaired Gross Range of Motion Lower Extremity ROM Assessment Within Functional Limits Strength Lower Extremity Strength Assessment Left Impaired Hip 3+/5 Knee 3+/5 Sensation Assessment Sensation Gross Sensation WNL Muscle Tone Muscle Tone WNL Yes M6 PT-IP Treatment Start: 08/05/22 12:53 Freq: NEEDED Status: Active Protocol: Document 08/05/22 10:54 AB (Rec: 08/05/22 13:08 AB [email or web address]) Physical Therapy Treatment Education Education Provided Precautions,Weight Bearing Status,Post-Op Packet,Safety M7 PT-IP Assessment and Plan Start: 08/05/22 12:53 Freq: NEEDED Status: Active Protocol: Document 08/05/22 10:54 AB (Rec: 08/05/22 13:08 AB [id number]) PT Summary Assessment and Plan Potential Rehabilitation Potential Fair Status of Condition at Evaluation Evolving Summary Impairments Pain,ROM,Strength,Balance, Coordination,Sensation,Tone, Cognition,Bed Mobility, Transfers,Gait,Activity Tolerance Assessment Summary pt s/p L3-4, L4-5 TLIF POD1. pt requiring max A with bed mobility , mod A with transfers and ambulation using FWW and will require 24/7 assistance at this time. pt with decrease safety awareness contributing to mobility assistance needed. will conduct caregiver training when appropriate. will continue to assess progress. d/c plan: SNF vs home with 24/ 7 assist and HHPT Goals Bed Mobility Goal Standby Assistance Transfer Goal Standby Assistance,Front Wheeled Walker Gait Goal Standby Assistance,Front Wheel Walker Gait Distance 150 Other Goals up/down 1 step using FWW SBA Days to Meet Goals 10 Frequency of Treatment Frequency Of Treatment Twice a Day Treatment Plan Physical Therapy Treatment Plan Bed Mobility Training,Transfer Training,Gait Training, Therapeutic Exercise,Balance Retraining,Post Op Education, Discharge Planning,Hot or Cold Pack,Neuromuscular Re-ed, Coordination Retraining,Manual Therapy Precautions Lumbar Precautions Log Roll,No Twisting,Limit Bending,Lifting Restriction of 10 lbs,Gait Belt above Incisional Area Recommendations To Nursing Amount of Assist Needed 1 Person Assist Discharge Recommendations PT Discharge Recommendations Home vs SNF Equipment Needed for Home Before FWW if pt goes home Discharge Transportation Needs at Discharge Private Vehicle,Wheelchair/ Cabulance
--- NOTE | 2022-08-05 12:08 | CM.DANOTE ---
Addendum entered by Iona Desai R.N. 08/05/22 13:02: Spoke to Anuja, physical therapist, patient was a two person assist, currently sitting up in chair. May potentially need skilled rehab, verus going home, will work again with P.T. later today. Met with patient and spouse, Mariann. Patient was currently up sitting in chair. Discussed discharge planning, patient is hopeful to go home. Went over Medicare Choice List, regarding rehab facilities as well. If need to go, wants to be here in town. Is ok having [facility] review. Other option is home health, and they have used [facility] before, were happy with them. Called July at [facility], she will review. He would be eligible by Tuesday. If patient improves with P.T most likely will be home. Will also complete a face to face as well, and send referral to [facility]. Original Note: DCP: Case received, EMR reviewed and met with patient. Introduced self and role. Was able to obtain information regarding patient's baseline activity status prior to surgery. DCP assessment completed with information currently available. Patient is an 81 year old male who admitted yesterday morning to the care of the orthopedic team. PCP: Dr. Sanabria. Payer: confirmed: Medicare/[employer]. Patient came to the hospital via private vehicle for a surgical procedure. Patient had L3-4, L4-5 postero-lateral and posterior interbody fusion. Patient has history of spinal stenosis. Met with patient in his room. He was sitting up in bed, alert. Confirmed that he resides in [place] with spouse, Mariann. Has a cane/walking stick at baseline. He does not know how he will do with therapy, will have to see if he can walk. He is hopeful that he can go home, as long as he can walk. P: DCP to follow closely to see how patient does with P.T, to see if he will be able to go home versus intermediate rehab. Iona Desai RN/Boat Outfitter Discharge Planning/Care Management CM Discharge Assessment Start: 08/05/22 12:03 Freq: Status: Active Protocol: Document 08/05/22 12:03 (Rec: 08/05/22 12:08 [id number]) Discharge Planning Assessment Assigned Concrete Pump Operator Helper Iona Desai RN/Boat Outfitter Advance Directives? Yes Advance Directives on File Yes History Provided By Patient,Medical Record Prior Living Arrangements House Household Members spouse Type of transporation used prior to Relies on Others admit Independent with ADL's Yes Is patient alert and oriented? Yes Needs Assistance With Home Chores / Shopping Caregiver for Another No DME Already Rented / Owned Other Comment Uses walking sticks for walking out doors, Patient/Family Preference OP PT Therapy Comment Will have to see how patient does with P.T. Barriers to Discharge No Discharge Plan Home Transportation Arrangement Family Referrals Initiated Other Additional Comment Will have to see how patient does with P.T. If patient plan is home with home health No : Has signed face to face form been completed? If patient plan is SNF: Has PASSR been No completed? Whiteboard Updated in Patient Room with Yes name and ext. # of Concrete Pump Operator Helper Review Status In Process Next Review Type Continued Stay Review Pre-Anesthesia Assessment Start: 07/27/22 09:38 Freq: Status: Complete Protocol: Document 07/27/22 09:38 [facility] (Rec: 07/27/22 10:25 [facility] [id number]) Pre-Anesthesia Assessment Patient Information Reviewed Via Phone Assessment Assessment Completed With Patient,Spouse Primary Care Provider Annetta Sanabria Seen Specialist in Last 12 Months Yes Specialist Seen Caramel Candy Maker,Grinder Machine Setter, Orthopedist,Urologist,Other Comment GI Primary Language Malian Preferred Language Malian Sole Conforming Machine Operator Required No Height 5 ft 9 in Weight 175 lb 0.012 oz Body Mass Index (BMI) 25.8 Hearing Ability Hearing Impaired,Use of Hearing Aid Visual Assist Glasses Dentition Type Teeth, Natural Present Barriers to Learning Auditory,Memory Hx Anesthesia Reactions No Hx Family Anesthesia Reaction No Hx Malignant Hyperthermia No Hx Blood Transfusions No Hx Blood Transfusion Reaction No Anesthesia Review Requested No Payroll Representative No alcohol intake current alcohol intake frequency 0-2 drinks per day Smoking Status Former smoker how long ago did patient quit smoking 35 yrs ago Substance Use Type does not use Pain Present Pain Reported Musculoskeletal Symptoms Abnormal Gait,Back Pain, Difficulty Walking History of Falling (Recent or History of Yes ) Patient is completely paralyzed or No completely immobile Prosthesis or Orthotic Device Cane Mental Status Oriented to own ability Is patient on oxygen? No Does patient have FU/SOB No Hx Sleep Apnea Yes: BiPAP CPAP/BIPAP use prescribed and used routinely Will Bring CPAP/BIPAP DOS Yes Currently Taking a Beta Everardo No Can You Climb a Flight of Stairs Without Yes SOB Hx Chest Pain No Hx SOB No Hx Syncope or Dizziness Yes: Syncope prior to pacemaker Anti-Coagulant Therapy Yes: Afib s/p shoulder surgery -pt will check w/cardiology on when to hold Has a Caramel Candy Maker Yes: Visit 03/25/[address] Coombs Cardiac Testing Yes: Echo @ [facility] 03/05/21 Hx Pacemaker/ICD Yes: Implant 04/16/22 Pacemaker Rep Required? Yes: Form scanned and put in surgery folder for dos Comment Cardiac records previously scanned Diet Type At Home Regular,Low Sodium Dysphagia No Gastrointestinal Symptoms None Bladder Pattern Nocturia Urinary Catheter Present No Hx Urinary Self Catheterization No Diabetes No Hx Drug Resistant Organism No Presence of External or Internal Medical Yes: Bilat eye IOLs, left knee Devices , BiPAP, right shoulder Received a COVID vaccine? Yes Received all doses? Yes Marital Status Lives With spouse Current Living Arrangements House Number of Floors (Floors) Two Floors Support System Caregiver,Spouse Comment Home caregivers will also be available Does the Patient Have Assistance After Yes Surgery Patient Discharge Plan Description Return Home Feels Safe in Current Environment Yes Been Physically Hurt or Threatened By a No Person in Current Environment Do you have thoughts of harming yourself None or others? Are you currently considering suicide? No Do you have a plan to hurt yourself or No Plan others? Do You Have Any Spiritual Beliefs That No May Affect Your HC Choices? Do You Have Any Cultural Practices That No May Affect Your HC Choices? Who Can We Speak to About Patient's Care Family, friends Identifying Code for Release of Patient Declines to issue Information Health Care Proxy/Next of Kin Mariann () Health Care Proxy Emergency Contact Name Mariann () Emergency Contact Advance Directives? Yes Advance Directives on File Yes Power of Hall Manager Yes Power of Hall Manager Name Estevan (son) Power of Hall Manager PAC Instructions Bring CPAP/BIPAP,Durable medical equipment,Medications to take/avoid,Nasal antibiotic ,No ETOH/petroleum product on skin DOS,NPO,Pre-surgical wash ,Sensory aids,Sturdy shoes/ comfortable clothes,Do not bring valuables and remove jewelry Stop Bang Assessment Do you have, or are you being treated Yes for, high blood pressure Is your BMI more than 35 kg/m2 No Age over 50 Yes Estimated neck circumference greater No than 40cm or 16in Gender male Yes Result Negative
--- NOTE | 2022-08-05 12:17 | OT.IP.EVAL ---
Current Diagnoses Spondylolisthesis, lumbar region (08/04/22) Spinal stenosis, lumbar region with neurogenic claudication (08/04/22) Surgery Performed Operation Date: 08/04/22 13:00 Actual Procedures p L3-4, L4-5 TLIF w. posterior instrumentation-Robot - Elo Barry MD Past Medical History (Last Reviewed 08/05/22 @ 07:32 by Abhay Nuñez PA-C) Abnormal prostate by palpation Acquired phimosis of penis Acute metabolic encephalopathy Afib Anemia Balanitis BCC (basal cell carcinoma) (2022) Benign prostatic hyperplasia Bladder outlet obstruction 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 Corneal abrasion Dementia DJD of right shoulder Excessive daytime sleepiness Gross hematuria Hearing impaired History of phimosis of penis History of tobacco use History of urinary retention History of urinary tract infection Hypertension Hypothyroidism associated with surgical procedure Lower urinary tract symptoms Lumbar spinal stenosis Male circumcision Memory changes Obstructive sleep apnea of adult Osteoarthritis 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) Pancreatic cyst PANCREATIC CYSTS Primary insomnia Rectal bleeding Restless legs syndrome (RLS) Sensitive skin Sepsis Skin cancer Snoring Surgical History (Last Reviewed 08/05/22 @ 07:32 by Abhay Nuñez PA-C) H/O shoulder surgery History of ankle surgery 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 Activities of Daily Living and IADL's Pt at times needing asisst for LB dressing needs and to assist to wash his back. Social History Household Members spouse Living Arrangements House Number of Floors (Floors) Two Floors Number of Stairs To Enter/Railing? Pt has an elevator to use and two steps with right rail. Home Environment Standard Height Toilet,Walk in Shower Home Equipment Four Wheel Walker,Straight Cane,Bedside Commode,Hand Held Shower,Grab Bars In Shower Additional Social History Comment Pt has a built in shower seat at home. M2 OT-IP Current Condition Start: 08/05/22 12:18 Freq: Status: Active Protocol: Document 08/05/22 11:43 [facility] (Rec: 08/05/22 12:49 [facility] [id number]) Occupational Therapy Current Condition Current Condition Evaluation Date 08/05/22 Treatment Diagnosis S/P L3-4, L4-5 TLIF Diagnosis Onset Date 08/04/22 Post Operative Precautions Lumbar Precautions Log Roll,No Twisting,Limit Bending,Lifting Restriction of 10 lbs,Gait Belt above Incisional Area M3 OT- IP Subjective and Pain Start: 08/05/22 12:18 Freq: Status: Active Protocol: Document 08/05/22 11:43 [facility] (Rec: 08/05/22 12:49 [facility] [id number]) OT- Subjective Occupational Therapy Visit Type Type Initial Evaluation Visit Start Time 11:43 Visit Stop Time 12:17 Total Visit Minutes 34 Notes Pt's present in the room and able to initiate caregiver training. Occupational Therapy Visit Comments Patient/Caregiver Goals TO go home. OT Pain Assessment Pain When Pain Assessed At Rest Pain Present Pain Present Denied Pain M4 OT- IP ADL's Start: 08/05/22 12:18 Freq: Status: Active Protocol: Document 08/05/22 11:43 [facility] (Rec: 08/05/22 12:49 [facility] [id number]) OT ADL-Grooming General Evaluation Grooming Ability Independent Areas Needing Assistance Retrieving/Set-up of Grooming Items Comments OT Grooming Comments Able to do while standing with FWW in front of him. OT ADL-Oral Care General Eval Oral Care Ability Independent Areas of Assistance Retrieving/Set-Up of Items Comments Oral Care Comments Pt given initial instructions to spit into a cup in order to best follow his back precautions. OT ADL-Dressing General Eval Lower Body Dressing Ability Minimal Assistance,Maximum Assistance Comments OT Dressing Comments Able to show pt use of hr analyst and sock aid. 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 OT ADL-Toileting General Evaluation Toileting Ability Total Assistance Comments OT Toileting Comments Rolon still in place. OT ADL-Bathing Comments OT Bathing Comments Not performed. Pt would benefit form a shower chair. If pt still here to benefit form caregiver training with for showering/dressing needs. M5 OT- IP IADL's Start: 08/05/22 12:18 Freq: Status: Active Protocol: Document 08/05/22 11:43 [facility] (Rec: 08/05/22 12:49 [facility] [id number]) OT-Instrumental Activities of Daily Living Deficits IADL Deficits Identified Deficits Home Safety Awareness Awareness of Need for Assistance at Home Good Awareness Home Safety Comments Pt is a bit impulsive and needing cues to slow down. Pt has a supportive to be able to assist with his needs. M6 OT- IP Functional Cognition Start: 08/05/22 12:18 Freq: Status: Active Protocol: Document 08/05/22 11:43 [facility] (Rec: 08/05/22 12:49 [facility] [id number]) Cognitive Factors Limiting Selfcare Function Cognitive Ability Level of Alertness Alert Patient Orientation Name,Place,Situation Attention Span Ability Capable of Focused Attention, Capable of Sustained Attention Ability to Follow Commands Able to Follow One Step Commands with Increased Time, Able to Follow One Step Commands with Repetition Safety Awareness Decreased Ability to Apply Precautions,Underestimates Need for Assistance Cognitive Comments Cognitive Assessment Comments Pt able to follow commands for back precautions, however needing cues to slow down. Pt' s able to cue pt appropriately for safety fro his back precautions as well. OT- Vision and Hearing OT- Hearing Assessment OT- Hearing Assessment Use of Hearing Aids M7 OT- IP Mobility and Balance Start: 08/05/22 12:18 Freq: Status: Active Protocol: Document 08/05/22 11:43 [facility] (Rec: 08/05/22 12:49 [facility] [id number]) OT-Transfer Assessment Sit to and From Stand Sit to and from Stand Contact Guard Assistance Transfers Transfer Ability Contact Guard Assistance Technique Transfer Destination Chair Transfer Technique Stand Step Pivot Devices Transfer Assistive Devices Gait Belt,Front Wheeled Walker Comments Mobility Comments Pt able to stand with CGA to FWW and needing reminders to push up from the armrest of the recliner when coming to stand. Pt needing CGA to close SBA when up with the FWW . Initially pt leaning to the right. Pt's able to jose the gait belt and assist pt but would benefit from more caregiver training for pt's needs. OT- Balance Assessment Sitting Balance and Reactions Static Sitting Balance Ability Good Dynamic Sitting Balance Ability Good Standing Balance and Reactions Static Standing Balance Ability Fair Dynamic Standing Balance Ability Fair M8 OT- IP Objective Assessments Start: 08/05/22 12:18 Freq: Status: Active Protocol: Document 08/05/22 11:43 [facility] (Rec: 08/05/22 12:49 [facility] [id number]) OT-Muscle Tone Assessment Muscle Tone WNL Yes M9 OT- IP Assessment and Plan Start: 08/05/22 12:18 Freq: Status: Active Protocol: Document 08/05/22 11:43 [facility] (Rec: 08/05/22 12:49 [facility] [id number]) OT Summary Assessment and Plan Potential Rehabilitation Potential Good Analytic Complexity at Evaluation Low Summary OT Impairments Pain,Strength,Balance, Functional Mobility,Dressing, Toileting,Bathing,Toilet Transfers,Shower Transfers Progress Towards Goals Progressing Toward Goals Assessment Summary Pt low complexity and main barriers are needing reminders to slow down and incorporate his back precautions during ADl and mobility needs. Pt would benefit from more practice and more caregiver training with his . Pt's looking to get FWW, sock aid, shower chair, hr analyst, and shoe horn from [employer] . Goals Dressing Goal Minimal Assistance Toileting Goal Independent Bathing Goal Standby Assistance Toilet Transfer Goal Independent Shower Transfer Goal Independent Patient/Caregiver Education Goal Demonstrate Energy Conservation and Pacing, Caregiver Independent Assisting Patient Days to Meet Goals 2 Frequency of Treatment Frequency Of Treatment Once a Day Treatment Plan OT Treatment Plan ADL Training,Functional Cognition Training,Functional Mobility,Patient/Family Education,Discharge Planning Other Treatment Recommendations and Next shower Treatment Focus Discharge Recommendations OT Discharge Recommendations Home with Assistance Home Equipment Needs FWW, shower chair, LB dressing equipment Transportation Needs at Discharge Private Vehicle
--- NOTE | 2022-08-05 13:47 | PT.IPTN ---
Current Diagnoses Spondylolisthesis, lumbar region (08/04/22) Spinal stenosis, lumbar region with neurogenic claudication (08/04/22) Surgery Performed Operation Date: 08/04/22 13:00 Actual Procedures p L3-4, L4-5 TLIF w. posterior instrumentation-Robot - Elo Barry MD Physical Therapy Treatment Note M2 PT-IP Current Condition Start: 08/05/22 12:53 Freq: NEEDED Status: Active Protocol: Document 08/05/22 10:54 [facility] (Rec: 08/05/22 13:08 AB [id number]) Physical Therapy Current Condition Current Condition Evaluation Date 08/05/22 Treatment Diagnosis s/p L3-4, L4-5 TLIF; difficulty in walking Onset Date 08/04/22 M3 PT-IP Subjective Start: 08/05/22 12:53 Freq: NEEDED Status: Active Protocol: Document 08/05/22 13:11 [place] (Rec: 08/05/22 14:02 [place] [id number]) Subjective Physical Therapy Visit Type Type Treatment Note Visit Start Time 13:11 Visit Stop Time 13:47 Total Visit Minutes 36 Notes present 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 1 Physical Therapy Visit Comments Patient Comments agreeable to do PT Therapy Pain Assessment Pain When Pain Assessed During Mobility Pain Present Pain Present Pain Reported Location Back Scale Used pain scale not stated Pain Management Techniques Modification of Treatment,Re- positioning,Timing of Activity with Medications M4 PT-IP Mobility and Gait Start: 08/05/22 12:53 Freq: NEEDED Status: Active Protocol: Document 08/05/22 13:11 [place] (Rec: 08/05/22 14:02 [place] [id number]) PT-Bed Mobility Assessment Rolling Type of Rolling Log Rolling Level of Assist Minimal Assistance,1 Person Assistance Supine to Sit Supine to Sit Minimal Assistance,1 Person Assistance Sit to Supine Sit to Supine Minimal Assistance,1 Person Assistance Scooting Scooting to Edge of Bed Contact Guard Assistance PT-Transfer Assessment Sit to and From Stand Sit to and from Stand Moderate Assistance,1 Person Assistance,Use of Upper Extremities Equipment Transfer Assistive Device Gait Belt,Front Wheeled Walker Orthotic/Prosthetic Devices or Brace: No Transfers Transfer Destination Bed Transfer Technique ambulated Transfer Ability Level of Assist Minimal Assistance,Moderate Assistance,1 Person Assistance ,Use of Upper Extremities Gait Assessment Gait Gait Assistance Required: Moderate Assistance Distance (Feet) 35 Able to Maintain Weight Bearing Status Yes During Gait Assistive Devices Assistive Device Gait Belt,Front Wheeled Walker Orthotic/Prosthetic Devices or Brace: No Gait Deviations General Gait Pattern Decreased Stride Length, Decreased Feet Clearance,Step- to Gait Factors Limiting Gait Function Factors Limiting Gait Function Decreased Activity Tolerance, Decreased Strength,Difficulty Following Directions,Limited Range of Motion,Pain,Poor Balance,Poor Safety Awareness Comments Gait Comments Pt initially sliding left foot forward but was able to improve w/ cues for heel toe walking. No LOB throughout. Stair Climbing Assessment Comments Stair Climbing Comments Not assessed due to pain and fatigue. Pt has 1 SURENDRA. PT-Balance Assessment Sitting Balance and Reactions Static Sitting Balance Ability Good Dynamic Sitting Balance Ability Good Standing Balance and Reactions Static Standing Balance Ability Fair Dynamic Standing Balance Ability Fair Device Used FWW M5 PT-IP Objective Assessments Start: 08/05/22 12:53 Freq: NEEDED Status: Active Protocol: Document 08/05/22 10:54 [facility] (Rec: 08/05/22 13:08 AB [id number]) Orientation Orientation/Cognition Level of Alertness Alert Orientation Name,Place,Situation Language Function Ability Hard of Hearing Safety Awareness Decreased Safety Awareness Memory Description Short Term Impaired Gross Range of Motion Lower Extremity ROM Assessment Within Functional Limits Strength Lower Extremity Strength Assessment Left Impaired Hip 3+/5 Knee 3+/5 Sensation Assessment Sensation Gross Sensation WNL Muscle Tone Muscle Tone WNL Yes M6 PT-IP Treatment Start: 08/05/22 12:53 Freq: NEEDED Status: Active Protocol: Document 08/05/22 13:11 [place] (Rec: 08/05/22 14:02 [place] [id number]) Physical Therapy Treatment Exercises Exercises Ankle Pumps,Gluteal Sets,Quad Sets Education Education Provided Precautions,Post-Op Packet, Safety Other Treatments Other Treatment Performed Able to recall 3/3 precautions . Initiated caregiver training w/ pts - demonstrated gait belt application, gave instruction for how to give pt cues for FWW use, hand placement, and heel toe walking. M7 PT-IP Assessment and Plan Start: 08/05/22 12:53 Freq: NEEDED Status: Active Protocol: Document 08/05/22 13:11 [place] (Rec: 08/05/22 14:02 [place] [id number]) PT Summary Assessment and Plan Potential Rehabilitation Potential Good Summary Impairments Pain,ROM,Strength,Balance, Coordination,Sensation,Tone, Cognition,Bed Mobility, Transfers,Gait,Activity Tolerance Progress Towards Goals Slow Progress due to Pain,Slow Progress due to Activity Tolerance Assessment Summary Pt slightly improved from this AM, requiring Min to Mod A for bed mobility and sit<> stand using FWW. He requires cues for proper use of FWW and hand placement for sit<>stand as well as cues for heel toe walking to avoid sliding L foot. Able to follow all cues well and increase amb distance but remains limited by pain and activity tolerance. Initiated caregiver training, but will need further training and will benefit from continued inpatient rehab to assess progress. Pts limited w/ balance issues and may not be able to provide all necessary assistance at this time. Depending on progress, safest option might be for pt to go to SNF to improve functional mobility independence however if he improves recommend HHPT and possibly / assistance. Goals Bed Mobility Goal Standby Assistance Transfer Goal Standby Assistance,Front Wheeled Walker Gait Goal Standby Assistance,Front Wheel Walker Gait Distance 150 Other Goals up/down 1 step using FWW SBA Days to Meet Goals 10 Frequency of Treatment Frequency Of Treatment Twice a Day Treatment Plan Physical Therapy Treatment Plan Bed Mobility Training,Transfer Training,Gait Training, Therapeutic Exercise,Balance Retraining,Post Op Education, Discharge Planning,Hot or Cold Pack,Neuromuscular Re-ed, Coordination Retraining,Manual Therapy Precautions Lumbar Precautions Log Roll,No Twisting,Limit Bending,Lifting Restriction of 10 lbs,Gait Belt above Incisional Area Recommendations To Nursing Amount of Assist Needed 1 Person Assist Discharge Recommendations PT Discharge Recommendations Home Health,Home vs SNF Equipment Needed for Home Before FWW if pt goes home - pts Discharge to [facility] from [facility] on Tuesday - check to see if she was able. Transportation Needs at Discharge Private Vehicle,Wheelchair/ Cabulance
[2022-08-05] MEDS: DONEPEZIL 5 MG TABLET 10 MG PO (17:30)
[2022-08-05] MEDS: TAMSULOSIN 0.4 MG CAPSULE PO (20:40)
[2022-08-05] MEDS: SENNOSIDES 8.6 MG TABLET 17.2 MG PO (20:40)
[2022-08-06 03:53] VITALS: BP 151/69; PULSE 70; RESP 17; TEMP 36.6; O2SAT 92
[2022-08-06] MEDS: LEVOTHYROXINE 50 MCG TABLET 150 MCG PO (05:15)
[2022-08-06] MEDS: hydrOXYzine pamoate 25 MG CAPSULE PO ×2 (05:16→20:14)
[2022-08-06] MEDS: OXYCODONE IR 10 MG TABLET PO ×2 (05:16→12:47)
[2022-08-06] MEDS: LEVOTHYROXINE 25 MCG TABLET PO (05:16)
[2022-08-06] MEDS: hydroCHLOROthiazide 25 MG TABLET 12.5 MG PO ×2 (08:57→20:16)
[2022-08-06] MEDS: CHOLECALCIFEROL (VITAMIN D3) 1,000 UNIT TABLET 1000 UNIT PO (08:57)
[2022-08-06] MEDS: BALSALAZIDE 750 MG 2250 EACH PO ×2 (08:57→20:37)
[2022-08-06] MEDS: APIXABAN 5 MG TABLET PO ×2 (08:57→20:14)
[2022-08-06] MEDS: DOCUSATE 100 MG CAPSULE PO ×2 (08:58→20:14)
[2022-08-06] MEDS: POTASSIUM CHLORIDE 10 MEQ TAB PO ×2 (08:58→20:17)
[2022-08-06] MEDS: MULTIVITAMIN 1 TABLET 1 TAB PO (08:58)
[2022-08-06] MEDS: ACETAMINOPHEN 325 MG TABLET 650 MG PO ×2 (09:00→17:33)
[2022-08-06 09:01] VITALS: BP 130/62; PULSE 75; RESP 16; TEMP 36.6; O2SAT 91
[2022-08-06] MEDS: lisinopriL 20 MG TABLET PO ×2 (09:01→20:14)
--- NOTE | 2022-08-06 09:32 | OT.IP.TRT ---
Current Diagnoses Spondylolisthesis, lumbar region (08/04/22) Spinal stenosis, lumbar region with neurogenic claudication (08/04/22) Surgery Performed Operation Date: 08/04/22 13:00 Actual Procedures p L3-4, L4-5 TLIF w. posterior instrumentation-Robot - Elo Barry MD Occupational Therapy Treatment Note M2 OT-IP Current Condition Start: 08/05/22 12:18 Freq: Status: Active Protocol: Document 08/05/22 11:43 [facility] (Rec: 08/05/22 12:49 [facility] [id number]) Occupational Therapy Current Condition Current Condition Evaluation Date 08/05/22 Treatment Diagnosis S/P L3-4, L4-5 TLIF Diagnosis Onset Date 08/04/22 Post Operative Precautions Lumbar Precautions Log Roll,No Twisting,Limit Bending,Lifting Restriction of 10 lbs,Gait Belt above Incisional Area M3 OT- IP Subjective and Pain Start: 08/05/22 12:18 Freq: Status: Active Protocol: Document 08/06/22 09:33 [facility] (Rec: 08/06/22 09:40 [facility] [id number]) OT- Subjective Occupational Therapy Visit Type Type Treatment Note Visit Start Time 08:47 Visit Stop Time 09:32 Total Visit Minutes 45 Occupational Therapy Visit Comments Patient Comments Pt sleepy and agreed to get up . Pt's in the room. Patient/Caregiver Goals TO go home. OT Pain Assessment Pain When Pain Assessed During Mobility Pain Present Pain Present Pain Reported Location Back Intensity 10 Scale Used Numeric (0 - 10) M4 OT- IP ADL's Start: 08/05/22 12:18 Freq: Status: Active Protocol: Document 08/06/22 09:33 [facility] (Rec: 08/06/22 09:40 [facility] [id number]) OT ADL-Grooming General Evaluation Grooming Ability Minimal Assistance Areas Needing Assistance Combing/Brushing Hair Comments OT Grooming Comments Pt's assist to comb his hair as pt very sleepy and not fully awake. OT ADL-Oral Care General Eval Oral Care Ability Independent Areas of Assistance Retrieving/Set-Up of Items Comments Oral Care Comments While seated. OT ADL-Dressing General Eval Lower Body Dressing Ability Maximum Assistance Areas Needing Assistance Socks OT ADL-Toileting Comments OT Toileting Comments Pt states has been using the urinal. OT ADL-Bathing Comments OT Bathing Comments Not performed. M6 OT- IP Functional Cognition Start: 08/05/22 12:18 Freq: Status: Active Protocol: Document 08/06/22 09:33 [facility] (Rec: 08/06/22 09:40 [facility] [id number]) Cognitive Factors Limiting Selfcare Function Cognitive Ability Level of Alertness Drowsy Attention Span Ability Capable of Focused Attention, Capable of Sustained Attention Ability to Follow Commands Able to Follow One Step Commands with Increased Time, Able to Follow One Step Commands with Repetition Safety Awareness Decreased Recall of Precautions,Decreased Ability to Apply Precautions Cognitive Comments Cognitive Assessment Comments Pt very sleepy and unable to recall back precautions and needing cues to incorporate for bed mobility needs. M7 OT- IP Mobility and Balance Start: 08/05/22 12:18 Freq: Status: Active Protocol: Document 08/06/22 09:33 [facility] (Rec: 08/06/22 09:40 [facility] [id number]) OT- Bed Mobility Assessment Supine to Sit Supine to Sit Assist Maximum Assistance OT-Transfer Assessment Sit to and From Stand Sit to and from Stand Maximum Assistance Transfers Transfer Ability Moderate Assistance Technique Transfer Destination Bed,Chair Transfer Technique Stand Step Pivot Devices Transfer Assistive Devices Gait Belt,Front Wheeled Walker Comments Mobility Comments MODA for bed mobility, MAXA X1 to stand to FWW and MODA for transfer to guide the FWW and assist for balance. Pt needing much more assist today and therefore too much assist for his to be able to handle at home. OT- Balance Assessment Sitting Balance and Reactions Static Sitting Balance Ability Good Dynamic Sitting Balance Ability Fair Standing Balance and Reactions Static Standing Balance Ability Poor Dynamic Standing Balance Ability Poor M8 OT- IP Objective Assessments Start: 08/05/22 12:18 Freq: Status: Active Protocol: Document 08/05/22 11:43 [facility] (Rec: 08/05/22 12:49 [facility] [id number]) OT-Muscle Tone Assessment Muscle Tone WNL Yes M9 OT- IP Assessment and Plan Start: 08/05/22 12:18 Freq: Status: Active Protocol: Document 08/06/22 09:33 [facility] (Rec: 08/06/22 09:40 [facility] [id number]) OT Summary Assessment and Plan Potential Rehabilitation Potential Good Analytic Complexity at Evaluation Low Summary OT Impairments Pain,Strength,Balance, Functional Mobility,Dressing, Toileting,Bathing,Toilet Transfers,Shower Transfers Progress Towards Goals Slow Progress due to Pain,Slow Progress due to Activity Tolerance,Slow Progress due to Cognition Assessment Summary Pt needing a lot more assist today MAXA for bed mobility and transfers with FWW . At this time pt requiring too much assist for his to be able to safely assist him at home. Pt will greatly benefit from skilled rehab when medically stable. Goals Dressing Goal Minimal Assistance Toileting Goal Independent Bathing Goal Standby Assistance Toilet Transfer Goal Independent Shower Transfer Goal Independent Patient/Caregiver Education Goal Demonstrate Energy Conservation and Pacing, Caregiver Independent Assisting Patient Days to Meet Goals 15 Frequency of Treatment Frequency Of Treatment Once a Day Treatment Plan OT Treatment Plan ADL Training,Functional Cognition Training,Functional Mobility,Patient/Family Education,Discharge Planning Discharge Recommendations OT Discharge Recommendations SNF Rehab Home Equipment Needs FWW, shower chair, LB dressing equipment Transportation Needs at Discharge Wheelchair/Cabulance
--- NOTE | 2022-08-06 11:00 | PT.IPTN ---
Current Diagnoses Spondylolisthesis, lumbar region (08/04/22) Spinal stenosis, lumbar region with neurogenic claudication (08/04/22) Surgery Performed Operation Date: 08/04/22 13:00 Actual Procedures p L3-4, L4-5 TLIF w. posterior instrumentation-Robot - Elo Barry MD Physical Therapy Treatment Note M2 PT-IP Current Condition Start: 08/05/22 12:53 Freq: NEEDED Status: Active Protocol: Document 08/05/22 10:54 AB (Rec: 08/05/22 13:08 AB [id number]) Physical Therapy Current Condition Current Condition Evaluation Date 08/05/22 Treatment Diagnosis s/p L3-4, L4-5 TLIF; difficulty in walking Onset Date 08/04/22 M3 PT-IP Subjective Start: 08/05/22 12:53 Freq: NEEDED Status: Active Protocol: Document 08/06/22 11:31 TS (Rec: 08/06/22 11:49 TS [id number]) Subjective Physical Therapy Visit Type Type Treatment Note Visit Start Time 11:00 Visit Stop Time 11:28 Total Visit Minutes 28 Number of OBGYN NURSE Visits 2 Physical Therapy Visit Comments Patient Comments agreeable to do PT Therapy Pain Assessment Pain When Pain Assessed During Mobility Pain Present Pain Present Pain Reported Location Back Intensity 6 Scale Used Numeric (0 - 10) Description With Movement Pain Behaviors Facial Grimacing,Wincing Pain Management Techniques Modification of Treatment,Re- positioning,Timing of Activity with Medications M4 PT-IP Mobility and Gait Start: 08/05/22 12:53 Freq: NEEDED Status: Active Protocol: Document 08/06/22 11:31 TS (Rec: 08/06/22 11:49 TS [id number]) PT-Bed Mobility Assessment Rolling Type of Rolling Log Rolling Level of Assist Minimal Assistance,1 Person Assistance Supine to Sit Supine to Sit Moderate Assistance,1 Person Assistance Sit to Supine Sit to Supine Standby Assistance Scooting Scooting to Edge of Bed Contact Guard Assistance PT-Transfer Assessment Sit to and From Stand Sit to and from Stand Contact Guard Assistance, Minimal Assistance Equipment Transfer Assistive Device Gait Belt,Front Wheeled Walker Orthotic/Prosthetic Devices or Brace: No Comments Mobility Comments Pt found resting in bed, agreeable to PT. Logroll Christopher, provided cues for RUE assist and pushing through heel on RLE. Supine to sit ModA for uprighting trunk, provided cues for BUE support and LEs over EOB. Sit to stand x2, x1 Christopher with cues provided for UE support on FWW, x1 CGA with UEs on FWW. Pt ambulated ~20' in room Christopher for balance, pt with slow gait, pt reports increasing fatigue/pain with gait and feels as if his knees might buckle, no LOB. Sit to supine SBA, provided cues for logroll sequencing. Pt was left in bed with call light nearby, all needs met, RN notified. Gait Assessment Gait Gait Assistance Required: Minimum Assistance Distance (Feet) 20 Able to Maintain Weight Bearing Status Yes During Gait Assistive Devices Assistive Device Gait Belt,Front Wheeled Walker Orthotic/Prosthetic Devices or Brace: No Gait Deviations General Gait Pattern Decreased Stride Length, Decreased Feet Clearance,Step- to Gait Factors Limiting Gait Function Factors Limiting Gait Function Decreased Activity Tolerance, Decreased Strength,Difficulty Following Directions,Limited Range of Motion,Pain,Poor Balance,Poor Safety Awareness Comments Gait Comments Pt had no LOB but did report feeling like his LEs were going to buckle. Stair Climbing Assessment Comments Stair Climbing Comments Not assessed due to pain and fatigue. Pt has 1 SURENDRA. PT-Balance Assessment Sitting Balance and Reactions Static Sitting Balance Ability Good Dynamic Sitting Balance Ability Good Standing Balance and Reactions Static Standing Balance Ability Poor Dynamic Standing Balance Ability Poor Device Used FWW M5 PT-IP Objective Assessments Start: 08/05/22 12:53 Freq: NEEDED Status: Active Protocol: Document 08/05/22 10:54 AB (Rec: 08/05/22 13:08 AB [id number]) Orientation Orientation/Cognition Level of Alertness Alert Orientation Name,Place,Situation Language Function Ability Hard of Hearing Safety Awareness Decreased Safety Awareness Memory Description Short Term Impaired Gross Range of Motion Lower Extremity ROM Assessment Within Functional Limits Strength Lower Extremity Strength Assessment Left Impaired Hip 3+/5 Knee 3+/5 Sensation Assessment Sensation Gross Sensation WNL Muscle Tone Muscle Tone WNL Yes M6 PT-IP Treatment Start: 08/05/22 12:53 Freq: NEEDED Status: Active Protocol: Document 08/06/22 11:31 TS (Rec: 08/06/22 11:49 TS [id number]) Physical Therapy Treatment Education Education Provided Precautions,Post-Op Packet, Safety Other Treatments Other Treatment Performed Pt recalled 2/3 spinal precautions prior to mobility, did not recall no lifting. M7 PT-IP Assessment and Plan Start: 08/05/22 12:53 Freq: NEEDED Status: Active Protocol: Document 08/06/22 11:31 TS (Rec: 08/06/22 11:49 TS [id number]) PT Summary Assessment and Plan Potential Rehabilitation Potential Good Summary Impairments Pain,ROM,Strength,Balance, Coordination,Sensation,Tone, Cognition,Bed Mobility, Transfers,Gait,Activity Tolerance Progress Towards Goals Slow Progress due to Pain,Slow Progress due to Activity Tolerance Assessment Summary Pt is making some progress with his mobility, most notably with his sit to stands . He continues to require Min- ModA for bed mobility, requires Max cueing for logroll sequencing and all bed mobility. He did progress his sit to stands to x1CGA and x1MinA with UE support on FWW. He ambulated ~20' in room with a slow gait Christopher with FWW , did report some increasing fatigue and LEs were going to buckle. PT is recommending Home vs SNF at this time. PT would like to see spouse work with pt prior to d/c. If spouse cannot assist with his mobility he may require SNF. Goals Bed Mobility Goal Standby Assistance Transfer Goal Standby Assistance,Front Wheeled Walker Gait Goal Standby Assistance,Front Wheel Walker Gait Distance 150 Other Goals up/down 1 step using FWW SBA Days to Meet Goals 10 Frequency of Treatment Frequency Of Treatment Twice a Day Treatment Plan Physical Therapy Treatment Plan Bed Mobility Training,Transfer Training,Gait Training, Therapeutic Exercise,Balance Retraining,Post Op Education, Discharge Planning,Hot or Cold Pack,Neuromuscular Re-ed, Coordination Retraining,Manual Therapy Other Recommendations and Next Treatment LE ex, sit<> stands, standing Focus balance, further distance gait w/ FWW. Precautions Lumbar Precautions Log Roll,No Twisting,Limit Bending,Lifting Restriction of 10 lbs,Gait Belt above Incisional Area Recommendations To Nursing Amount of Assist Needed 2 Person Assist Discharge Recommendations PT Discharge Recommendations Home Health,Home vs SNF Equipment Needed for Home Before FWW if pt goes home - pts [facility] - check to see if she was able. Transportation Needs at Discharge Private Vehicle,Wheelchair/ Cabulance
--- NOTE | 2022-08-06 14:43 | PT.IPTN ---
Current Diagnoses Spondylolisthesis, lumbar region (08/04/22) Spinal stenosis, lumbar region with neurogenic claudication (08/04/22) Surgery Performed Operation Date: 08/04/22 13:00 Actual Procedures p L3-4, L4-5 TLIF w. posterior instrumentation-Robot - Elo Barry MD Physical Therapy Treatment Note M2 PT-IP Current Condition Start: 08/05/22 12:53 Freq: NEEDED Status: Active Protocol: Document 08/05/22 10:54 AB (Rec: 08/05/22 13:08 AB [email or web address]) Physical Therapy Current Condition Current Condition Evaluation Date 08/05/22 Treatment Diagnosis s/p L3-4, L4-5 TLIF; difficulty in walking Onset Date 08/04/22 M3 PT-IP Subjective Start: 08/05/22 12:53 Freq: NEEDED Status: Active Protocol: Document 08/06/22 15:46 TS (Rec: 08/06/22 16:12 TS [id number]) Subjective Physical Therapy Visit Type Type Treatment Note Visit Start Time 14:43 Visit Stop Time 15:13 Total Visit Minutes 30 Notes Spouse present. Number of SECTION HAND Visits 3 Physical Therapy Visit Comments Patient Comments agreeable to do PT Therapy Pain Assessment Pain When Pain Assessed During Mobility Pain Present Pain Present Pain Reported M4 PT-IP Mobility and Gait Start: 08/05/22 12:53 Freq: NEEDED Status: Active Protocol: Document 08/06/22 15:46 TS (Rec: 08/06/22 16:12 TS [id number]) PT-Transfer Assessment Sit to and From Stand Sit to and from Stand Minimal Assistance Equipment Transfer Assistive Device Gait Belt,Front Wheeled Walker Orthotic/Prosthetic Devices or Brace: No Comments Mobility Comments Sit to stand from chair Christopher, provided cues for BUE pushing from arms of chair, pt requires extra time to stand. He ambulated in room ~15' Christopher with FWW, pt has WBOS with unsteady gait, pt reports fatigue and requested to sit down on bed. After ~2min rest break he performed sit to stand Christopher from bed and ambulated 10' to counter of sink. He performed steps x2 sidestepping with BUE support on counter top and Christopher, no buckling or LOB. Sit to senior sustainability consultant chair Christopher for slow controll into sitting, provided cues for reaching back with arms of chair. Pt was left in chair with spouse in room, call light and chair alarm in place, RN notified. Gait Assessment Gait Gait Assistance Required: Minimum Assistance Distance (Feet) 30 Able to Maintain Weight Bearing Status Yes During Gait Assistive Devices Assistive Device Gait Belt,Front Wheeled Walker Orthotic/Prosthetic Devices or Brace: No Gait Deviations General Gait Pattern Decreased Stride Length, Decreased Feet Clearance,Step- to Gait Factors Limiting Gait Function Factors Limiting Gait Function Decreased Activity Tolerance, Decreased Strength,Difficulty Following Directions,Limited Range of Motion,Pain,Poor Balance,Poor Safety Awareness Comments Gait Comments See mobility comments. Stair Climbing Assessment Evaluation Level of Assist On Stairs Minimal Assistance,1 Person Assistance Devices Stair Climbing Assistive Devices Left Railing Technique/Endurance Stair Climbing Direction Ascend and Descend Stair Climbing Technique Step to Step Number of Steps Climbed 2 Comments Stair Climbing Comments See mobiltiy comments. PT-Balance Assessment Sitting Balance and Reactions Static Sitting Balance Ability Good Dynamic Sitting Balance Ability Good Standing Balance and Reactions Static Standing Balance Ability Fair Dynamic Standing Balance Ability Poor Device Used FWW M5 PT-IP Objective Assessments Start: 08/05/22 12:53 Freq: NEEDED Status: Active Protocol: Document 08/05/22 10:54 AB (Rec: 08/05/22 13:08 AB [id number]) Orientation Orientation/Cognition Level of Alertness Alert Orientation Name,Place,Situation Language Function Ability Hard of Hearing Safety Awareness Decreased Safety Awareness Memory Description Short Term Impaired Gross Range of Motion Lower Extremity ROM Assessment Within Functional Limits Strength Lower Extremity Strength Assessment Left Impaired Hip 3+/5 Knee 3+/5 Sensation Assessment Sensation Gross Sensation WNL Muscle Tone Muscle Tone WNL Yes M6 PT-IP Treatment Start: 08/05/22 12:53 Freq: NEEDED Status: Active Protocol: Document 08/06/22 15:46 TS (Rec: 08/06/22 16:12 TS [id number]) Physical Therapy Treatment Education Education Provided Precautions,Post-Op Packet, Safety M7 PT-IP Assessment and Plan Start: 08/05/22 12:53 Freq: NEEDED Status: Active Protocol: Document 08/06/22 15:46 TS (Rec: 08/06/22 16:12 TS [id number]) PT Summary Assessment and Plan Potential Rehabilitation Potential Good Summary Impairments Pain,ROM,Strength,Balance, Coordination,Sensation,Tone, Cognition,Bed Mobility, Transfers,Gait,Activity Tolerance Progress Towards Goals Slow Progress due to Pain,Slow Progress due to Activity Tolerance Assessment Summary Pt continues to make slow progress with his mobility. He is Christopher for sit to stands from lower surface of chair and Christopher for gait. He ambulated ~30' in room Christopher for unsteady gait with WBOS, he became fatigued after ~15' requesting to sit EOB. He progressed stairs to x2, required Christopher and BUE on counter sidestepping up onto step. He does require Max cueing for all mobility due to confusion but can follow single step instructions well. PT is recommending SNF at this time and would benefit from continued skilled therapy to progress to greater independence before returning home. Spouse reports she feels he would be unsafe at home and is unsure if she could provide the assistance he would need at home. Goals Bed Mobility Goal Standby Assistance Transfer Goal Standby Assistance,Front Wheeled Walker Gait Goal Standby Assistance,Front Wheel Walker Gait Distance 150 Other Goals up/down 1 step using FWW SBA Days to Meet Goals 10 Frequency of Treatment Frequency Of Treatment Twice a Day Treatment Plan Physical Therapy Treatment Plan Bed Mobility Training,Transfer Training,Gait Training, Therapeutic Exercise,Balance Retraining,Post Op Education, Discharge Planning,Hot or Cold Pack,Neuromuscular Re-ed, Coordination Retraining,Manual Therapy Other Recommendations and Next Treatment LE ex, sit<> stands, standing Focus balance, further distance gait w/ FWW. Precautions Lumbar Precautions Log Roll,No Twisting,Limit Bending,Lifting Restriction of 10 lbs,Gait Belt above Incisional Area Recommendations To Nursing Amount of Assist Needed 1 Person Assist Discharge Recommendations PT Discharge Recommendations SNF Rehab Transportation Needs at Discharge Private Vehicle,Wheelchair/ Cabulance
--- NOTE | 2022-08-06 16:02 | CM.DPC ---
DCP Cont: Per Ortho, pt having pain issues and to work more with PT/OT and not yet stable for d/c yet today. Per PT/OT, recommending SNF as pt able to ambulate but requiring too much assist that spouse will not be able to provide at home and preference from pt and spouse is [facility]. [facility] has accepted and has staff to admit if pt stable for d/c on Monday 08/07 and PAS[facility] previously done. Pt will have his Medicare qualifying stay for d/c Sat if stable. Plan: SW to follow closely in the AM to determine if pt stable for d/c to [facility] for rehab before safe return home with spouse. LOY Cummings
[2022-08-06] MEDS: DONEPEZIL 5 MG TABLET 10 MG PO (17:33)
--- NOTE | 2022-08-06 18:06 | PM.PNPO.1 ---
Subjective Subjective Interval history: Patient is just waking up this morning and states he has mild lower back pain. He notes that physical therapy didn't go as well as he would have liked it to. Denies fever, chills, nausea, vomiting. Pain is well controlled with medication. Exam Vital Signs (past 8 hours): Fraction of Inspired Oxygen 32 SaO2/FiO2 Ratio 293 Oxygen Delivery Method Nasal Cannula Oxygen Flow Rate 0 Narrative Exam Narrative: Awake, alert, and oriented. Intraoperative dressing clean, dry, and intact. Strength and sensation intact to bilateral lower extremities. Bilateral calves soft, compressible, nontender with no palpable cords or masses. Objective Labs 08/05/22 04:44 [facility] Medical History Abnormal prostate by palpation Acquired phimosis of penis Acute metabolic encephalopathy Afib Anemia Balanitis BCC (basal cell carcinoma) (2022) Benign prostatic hyperplasia Bladder outlet obstruction 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 Corneal abrasion Dementia DJD of right shoulder Excessive daytime sleepiness Gross hematuria Hearing impaired History of phimosis of penis History of tobacco use History of urinary retention History of urinary tract infection Hypertension Hypothyroidism associated with surgical procedure Lower urinary tract symptoms Lumbar spinal stenosis Male circumcision Memory changes Obstructive sleep apnea of adult Osteoarthritis 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) Pancreatic cyst PANCREATIC CYSTS Primary insomnia Rectal bleeding Restless legs syndrome (RLS) Sensitive skin Sepsis Skin cancer Snoring Surgical History H/O shoulder surgery History of ankle surgery 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 History of urologic surgery (04/02/21) Hx of bilateral cataract extraction Hx of thyroidectomy (~1989) Hx of tonsillectomy Family History Father Parkinson disease Mother Parkinson disease Sister Blood disorder Social History marital status: details: shavonne Waite number of children: 1 household members: spouse lives independently: Yes caregiver/support person: No pets and animals: No occupational status: previously employed current occupational exposures/hazards: No 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 posterior instrumentation-Robot Elo Barry MD Postoperative day: 2 Postoperative status: doing well Postoperative status narrative: Progressing as expected after TLIF Postoperative plan narrative: Continue with physical therapy. Patient plans to go home with spouse once safe and able. Continue multimodal pain control. Continue Eliquis. Quality VTE Deep Vein Thrombosis/Pulmonary Embolism Present on Admission: No
[2022-08-06 19:35] VITALS: BP 131/74; PULSE 79; RESP 18; TEMP 37.4; O2SAT 91
[2022-08-06 20:14] VITALS: BP 130/62; PULSE 75
[2022-08-06] MEDS: TAMSULOSIN 0.4 MG CAPSULE PO (20:14)
[2022-08-06] MEDS: SENNOSIDES 8.6 MG TABLET 17.2 MG PO (20:16)
[2022-08-07] MEDS: OXYCODONE IR 10 MG TABLET PO ×2 (00:25→07:42)
[2022-08-07 00:53] VITALS: BP 122/77; PULSE 75; RESP 18; TEMP 36.9; O2SAT 93
[2022-08-07 05:36] VITALS: BP 129/62; PULSE 63; RESP 18; TEMP 36.8; O2SAT 95
[2022-08-07] MEDS: LEVOTHYROXINE 50 MCG TABLET 150 MCG PO (06:44)
[2022-08-07] MEDS: ACETAMINOPHEN 325 MG TABLET 650 MG PO (09:07)
[2022-08-07] MEDS: hydroCHLOROthiazide 25 MG TABLET 12.5 MG PO (09:07)
[2022-08-07] MEDS: DOCUSATE 100 MG CAPSULE PO (09:07)
[2022-08-07] MEDS: hydrOXYzine pamoate 25 MG CAPSULE PO (09:07)
[2022-08-07] MEDS: MULTIVITAMIN 1 TABLET 1 TAB PO (09:07)
[2022-08-07] MEDS: APIXABAN 5 MG TABLET PO (09:07)
[2022-08-07 09:08] VITALS: BP 145/74; PULSE 69
[2022-08-07] MEDS: POTASSIUM CHLORIDE 10 MEQ TAB PO (09:08)
[2022-08-07] MEDS: CHOLECALCIFEROL (VITAMIN D3) 1,000 UNIT TABLET 1000 UNIT PO (09:08)
[2022-08-07] MEDS: lisinopriL 20 MG TABLET PO (09:08)
[2022-08-07] MEDS: polyethylene glycoL 3350 17 GM POWD.PACK PO (09:08)
[2022-08-07] MEDS: BALSALAZIDE 750 MG 2250 EACH PO (09:08)
[2022-08-07 09:31] VITALS: BP 145/74; PULSE 66; RESP 18; TEMP 36.8; O2SAT 91
--- NOTE | 2022-08-07 09:56 | PT.IPTN ---
Current Diagnoses Spondylolisthesis, lumbar region (08/04/22) Spinal stenosis, lumbar region with neurogenic claudication (08/04/22) Surgery Performed Operation Date: 08/04/22 13:00 Actual Procedures p L3-4, L4-5 TLIF w. posterior instrumentation-Robot - Elo Barry MD Physical Therapy Treatment Note M2 PT-IP Current Condition Start: 08/05/22 12:53 Freq: NEEDED Status: Active Protocol: Document 08/05/22 10:54 AB (Rec: 08/05/22 13:08 AB [id number]) Physical Therapy Current Condition Current Condition Evaluation Date 08/05/22 Treatment Diagnosis s/p L3-4, L4-5 TLIF; difficulty in walking Onset Date 08/04/22 M3 PT-IP Subjective Start: 08/05/22 12:53 Freq: NEEDED Status: Active Protocol: Document 08/07/22 10:31 TS (Rec: 08/07/22 10:46 TS [id number]) Subjective Physical Therapy Visit Type Type Treatment Note Visit Start Time 09:56 Visit Stop Time 10:28 Total Visit Minutes 32 Notes Spouse present. Number of CUSTOMER SERVICE ASSOCIATE Visits 4 Physical Therapy Visit Comments Patient Comments Pt found resting in bed, spouse in room, agreeable to PT. Therapy Pain Assessment Pain When Pain Assessed During Mobility Pain Present Pain Present Pain Reported M4 PT-IP Mobility and Gait Start: 08/05/22 12:53 Freq: NEEDED Status: Active Protocol: Document 08/07/22 10:31 TS (Rec: 08/07/22 10:46 TS [id number]) PT-Bed Mobility Assessment Rolling Type of Rolling Log Rolling Level of Assist Minimal Assistance,1 Person Assistance Supine to Sit Supine to Sit Minimal Assistance,1 Person Assistance Scooting Scooting to Edge of Bed Contact Guard Assistance Scooting Up and Down in Bed Standby Assistance PT-Transfer Assessment Sit to and From Stand Sit to and from Stand Minimal Assistance Equipment Transfer Assistive Device Gait Belt,Front Wheeled Walker Orthotic/Prosthetic Devices or Brace: No Comments Mobility Comments Supine to sit HOB elevated Christopher for uprighting trunk, provided cues for handplacement on bed and LEs over EOB. Sitting upright for dressing change from RN pt maintained good midline with BUE support. Sit to stand Christopher , requires extra time to stand . He ambulated in room ~30' Christopher for balance, LLE buckling with increased duration in standing, no LOB but unsteady on feet with WBOS in FWW. Pt sat in chair for donning of clothing, sit to stand x1 Christopher from chair required assistance for donning of pants. Pt was left in room with call light nearby, spouse in room, preparing to d/c to SNF. Gait Assessment Gait Gait Assistance Required: Minimum Assistance Distance (Feet) 30 Able to Maintain Weight Bearing Status Yes During Gait Assistive Devices Assistive Device Gait Belt,Front Wheeled Walker Orthotic/Prosthetic Devices or Brace: No Gait Deviations General Gait Pattern Decreased Stride Length, Decreased Feet Clearance,Step- to Gait Factors Limiting Gait Function Factors Limiting Gait Function Decreased Activity Tolerance, Decreased Strength,Difficulty Following Directions,Limited Range of Motion,Pain,Poor Balance,Poor Safety Awareness Comments Gait Comments See mobility comments. Stair Climbing Assessment Comments Stair Climbing Comments Did not attempt. PT-Balance Assessment Sitting Balance and Reactions Static Sitting Balance Ability Good Dynamic Sitting Balance Ability Good Standing Balance and Reactions Static Standing Balance Ability Fair Dynamic Standing Balance Ability Poor Device Used FWW M5 PT-IP Objective Assessments Start: 08/05/22 12:53 Freq: NEEDED Status: Active Protocol: Document 08/05/22 10:54 AB (Rec: 08/05/22 13:08 AB [id number]) Orientation Orientation/Cognition Level of Alertness Alert Orientation Name,Place,Situation Language Function Ability Hard of Hearing Safety Awareness Decreased Safety Awareness Memory Description Short Term Impaired Gross Range of Motion Lower Extremity ROM Assessment Within Functional Limits Strength Lower Extremity Strength Assessment Left Impaired Hip 3+/5 Knee 3+/5 Sensation Assessment Sensation Gross Sensation WNL Muscle Tone Muscle Tone WNL Yes M6 PT-IP Treatment Start: 08/05/22 12:53 Freq: NEEDED Status: Active Protocol: Document 08/07/22 10:31 TS (Rec: 08/07/22 10:46 TS [id number]) Physical Therapy Treatment Education Education Provided Precautions,Post-Op Packet, Safety M7 PT-IP Assessment and Plan Start: 08/05/22 12:53 Freq: NEEDED Status: Active Protocol: Document 08/07/22 10:31 TS (Rec: 08/07/22 10:46 TS [id number]) PT Summary Assessment and Plan Potential Rehabilitation Potential Good Summary Impairments Pain,ROM,Strength,Balance, Coordination,Sensation,Tone, Cognition,Bed Mobility, Transfers,Gait,Activity Tolerance Progress Towards Goals Slow Progress due to Pain,Slow Progress due to Activity Tolerance Assessment Summary Pt continues to progress slowly with his mobility. He continues to require Max cueing for all mobility but does follow single step instructions well. With gait his LLE continues to slowly buckle /flex due to weakness, he is unsteady on feet with WBOS. He does not have any LOB and denies any dizziness. His safety awareness is poor and activity tolerance reamins low . PT continues to recommend SNF for continued skilled therapy. Goals Bed Mobility Goal Standby Assistance Transfer Goal Standby Assistance,Front Wheeled Walker Gait Goal Standby Assistance,Front Wheel Walker Gait Distance 150 Other Goals up/down 1 step using FWW SBA Days to Meet Goals 10 Frequency of Treatment Frequency Of Treatment Twice a Day Treatment Plan Physical Therapy Treatment Plan Bed Mobility Training,Transfer Training,Gait Training, Therapeutic Exercise,Balance Retraining,Post Op Education, Discharge Planning,Hot or Cold Pack,Neuromuscular Re-ed, Coordination Retraining,Manual Therapy Other Recommendations and Next Treatment LE ex, sit<> stands, standing Focus balance, further distance gait w/ FWW. Precautions Lumbar Precautions Log Roll,No Twisting,Limit Bending,Lifting Restriction of 10 lbs,Gait Belt above Incisional Area Recommendations To Nursing Amount of Assist Needed 1 Person Assist Discharge Recommendations PT Discharge Recommendations SNF Rehab Transportation Needs at Discharge Private Vehicle,Wheelchair/ Cabulance
--- NOTE | 2022-08-07 10:24 | P.DS_ITS ---
History of Present Illness History of Present Illness Date Patient Seen: 08/07/22 Time Patient Seen: 10:24 Chief complaint: TLIF Narrative: Patient is sitting up in his chair working with physical therapy, at bedside. He states that he is somewhat fatigued today, though he is doing well. Patient and have decided with care management that it is most appropriate for him to go to detention facility for a few days to continue rehabilitation. He denies fever, chills, nausea, vomiting. Discharge Providers Provider Date of admission: 08/04/22 11:04 Discharge Date: 08/07/22 Primary care physician: Annetta Sanabria MD Consults: 08/04/22 19:38 Consult to Occupational Therapy Evaluate & Treat Comment: Physician Instructions: Evaluate and treat Consult to Physical Therapy Evaluate & Treat Comment: Physician Instructions: Evaluate and Treat Discharge provider: Cassidy Márquez PA-C Summary Hospital Course Discharge Diagnosis: Status post TLIF Hospital Course: Operative Date/Time/Diagnoses Date of procedure: 08/04/22 Time of procedure: 13:30 Pre-op diagnosis: 1. L3-4, L4-5 spondylolisthesis 2. L3-4, L4-5 spinal stenosis with neurogenic claudication Post-op diagnosis: same Procedure & Clinicians Procedure: 1. L3-4, L4-5 Postero-lateral and posterior interbody fusion 2. L3-4, L4-5 interbody cage placement. 3. L3-4, L4-5 decompressive laminectomy with bilateral facetecomies 4. L3-4, L4-5 Posterior segmental instrumentation 5. [place] of bone marrow from iliac crest 6. Utilization of microsurgical technique and operating microscope 7. Utilization of robotic assisted navigation Same procedure as scheduled: Yes Indications: Patient has been having chronic back pain and worsening lumbar radiculopathy and symptoms of neurogenic claudication. Patient failed multiple conservative management with worsening pain weakness and numbness in his lower extremity.? Patient has been having difficulty performing activity of daily living.? After discussing risks benefits of treatment options, patient elected proceed with surgery. Surgeon: Elo Barry Wrapper Hand: Morena Diamond Click Yes if Unassisted: No Anesthesia Type: General Operative Notes Closure Type: primary Specimen(s): none sent Prosthetic devices, grafts, tissues, transplants, or devices: Globus CREO MIS screws, Rise cages Applied: catheter Estimated Blood Loss (mL): 150 Blood products transfused: none Exam Vital Signs (past 8 hours): - 08/07/22 05:36 08/07/22 09:08 08/07/22 09:31 Temperature 98.3 F 98.3 F Pulse Rate 63 69 66 Respiratory Rate 18 18 Blood Pressure 129/62 145/74 H 145/74 H Pulse Oximetry 95 91 Oxygen Flow Rate 1 0 Fraction of Inspired Oxygen 32 SaO2/FiO2 Ratio 293 Oxygen Delivery Method Nasal Cannula Oxygen Flow Rate 0 Narrative Exam Narrative: Pleasant 81-year-old male. Awake, alert, and oriented. Intraoperative dressing clean, dry, and intact. Strength and sensation intact to bilateral lower extremities. Bilateral calves soft, compressible, nontender with no palpable cords or masses. Objective Labs 08/05/22 04:44 PFS Medical History Abnormal prostate by palpation Acquired phimosis of penis Acute metabolic encephalopathy Afib Anemia Balanitis BCC (basal cell carcinoma) (2022) Benign prostatic hyperplasia Bladder outlet obstruction 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 Corneal abrasion Dementia DJD of right shoulder Excessive daytime sleepiness Gross hematuria Hearing impaired History of phimosis of penis History of tobacco use History of urinary retention History of urinary tract infection Hypertension Hypothyroidism associated with surgical procedure Lower urinary tract symptoms Lumbar spinal stenosis Male circumcision Memory changes Obstructive sleep apnea of adult Osteoarthritis 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) Pancreatic cyst PANCREATIC CYSTS Primary insomnia Rectal bleeding Restless legs syndrome (RLS) Sensitive skin Sepsis Skin cancer Snoring Surgical History H/O shoulder surgery History of ankle surgery 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 History of urologic surgery (04/02/21) Hx of bilateral cataract extraction Hx of thyroidectomy (~1989) Hx of tonsillectomy Family History Father Parkinson disease Mother Parkinson disease Sister Blood disorder Social History marital status: details: to Mariann number of children: 1 household members: spouse lives independently: Yes caregiver/support person: No pets and animals: No occupational status: previously employed current occupational exposures/hazards: No 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 Physical therapy is recommending detention facility to progress rehabilitation until safe to discharge home. Plan of Treatment: Plan to discharge to detention facility at 11:00 a.m. this morning. Patient will continue multimodal pain regimen. Continue Eliquis for DVT prophylaxis. Patient will follow up 2 weeks after surgery for staple removal. Discharge Plan Discharge Plan Patient Disposition: SNF Transfer to: [facility] Discharge orders & Medications Prescriptions: New oxycodone 5 mg tablet 5 mg PO Q4H PRN (Reason: pain) Qty: 60 0RF hydroxyzine pamoate 25 mg Capsule 25 mg PO Q4HR PRN (Reason: Nausea And Vomiting) Qty: 40 0RF Continued lisinopril-hydrochlorothiazide 20 MG/12.5 MG tablet 1 tab PO BID Qty: 0 potassium chloride 10 mEq Capsule, Extended Release 10 meq PO BID Centrum Silver Ultra Men's 300-600-300 mcg Tablet 1 tab PO DAILY levothyroxine 175 mcg tablet 175 mcg PO Q OTHER DAY Rx Instructions: alternate with 150mcg levothyroxine ipratropium bromide 42 mcg (0.06 %) [place],Non-Aerosol 1 spray INTRANASAL DAILY Rx Instructions: administer into each nostril donepezil 10 mg Tablet 10 mg PO QPM Eliquis 5 mg Tablet 5 mg PO BID acetaminophen 325 mg tablet 650 mg PO Q6H PRN (Reason: Pain) tamsulosin 0.4 mg capsule 0.4 mg PO BEDTIME turmeric root extract 2,000 mg PO BID balsalazide 750 mg capsule 2,250 mg PO BID Patient Comments: Pt will bring from home levothyroxine 150 mcg tablet 150 mcg PO Q OTHER DAY Rx Instructions: alternate with 175mcg tablet cholecalciferol (vitamin D3) 25 mcg (1,000 unit) capsule 25 mcg PO DAILY Discontinued oxycodone 5 mg Tablet 5 mg PO Q4H PRN (Reason: Pain, Moderate (4-6)) Qty: 40 0RF Follow up/Referrals: Elo Barry MD [Physician] - As previously scheduled (Follow up w/ Dr Barry on 08/19/2022 @ 1:30 pm at [facility] Annetta Sanabria MD [Primary Care Provider] - Diet/Activity/Treatments Diet: Diet as Tolerated Activity: No deep bending or twisting at the waist. No lifting more than 10 pounds. Cold/Heat Therapy: Heating pad to low back as needed for pain. Skin/Wound/Dressing Care Report to your healthcare provider any signs of infection, such as:: chills, fever, night sweats, unusual drainage and unusual redness Dressing: May shower; keep dressing as dry as possible. If dressing becomes wet or dirty, may remove and replace with clean, dry gauze. No bathing or otherwise soaking incisions. Do not put any creams, lotions, or ointments on incisions. Special Rehabilitation Services Reason for rehabilitation: Post-operative therapy Rehab type: Physical therapy Visit Report/Discharge Packet Instructions: DI for Transforaminal Lumbar Interbody Fusion Stand Alone Forms: Patient Portal/API, Surgery Discharge Discharge Data Primary Care Provider: Annetta Sanabria Quality VTE Deep Vein Thrombosis/Pulmonary Embolism Present on Admission: No
--- NOTE | 2022-08-07 10:25 | CM.DPNOTE ---
Discharge Planning Note: Patient and spouse in agreement to go to [facility] SN[facility] Rehab and PT recommends this. Patient still weakened. Cassidy Márquez PA in to discharge. Will fax clinicals to Micheal at [facility]: [phone]. 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 Nelida Bush RN/DCP
== END 2022-08-07 11:47 | DRG 455 ==
PROVIDERS: Admitting Provider Orthopaedic Surgery Orthopaedic Surgery of the Spine; Family Provider Family Medicine; PCP Family Medicine; Referring Provider Orthopaedic Surgery Orthopaedic Surgery of the Spine; Visit Provider Orthopaedic Surgery Orthopaedic Surgery of the Spine
PROC: 0SG10AJ Fusion of 2 or more Lumbar Vertebral Joints with Interbody Fusion Device, Posterior Approach, Anterior Column, Open Approach (ICD-10-PCS; principal; 2022-08-04 13:00)
DX: M48.062 Spinal stenosis, lumbar region with neurogenic claudication (principal); M43.16 Spondylolisthesis, lumbar region; R53.83 Other fatigue; I10 Essential (primary) hypertension; E03.9 Hypothyroidism, unspecified; N40.0 Benign prostatic hyperplasia without lower urinary tract symptoms; Z20.822 Contact with and (suspected) exposure to COVID-19; Z87.891 Personal history of nicotine dependence; Z95.0 Presence of cardiac pacemaker
CPT/HCPCS: 36415; 72100; 76000; 85014; 85018; 97110; 97116; 97162; 97165; 97530; 97535; C1713; C1831; C9290; J0171; J0690; J1100; J1170; J2405; J2704; J3010

== ENCOUNTER → 2022-11-01 16:51 | Outpatient (ROUT) | payer MEDICARE, OTHER, SELFPAY ==
[2022-08-04 20:29] VITALS: BMI 28.1
== END ==
PROVIDERS: Family Provider Family Medicine; PCP Family Medicine; Visit Provider Dermatology
DX: L24.9 Irritant contact dermatitis, unspecified cause (principal); R20.8 Other disturbances of skin sensation; L57.8 Other skin changes due to chronic exposure to nonionizing radiation; X32.XXXA Exposure to sunlight, initial encounter
CPT/HCPCS: 87070; 87075; 87102; 87205

== ENCOUNTER → 2023-01-03 14:40 | Outpatient (CLI) | payer MEDICARE, OTHER, SELFPAY ==
[2022-08-04 20:29] VITALS: BMI 28.1
--- NOTE | 2023-01-03 | DI.CT.S_ITS ---
PROCEDURE: CT LUMBAR SPINE WO CON INDICATIONS: EVAL NEURO STRUCTURES AND HARDWARE TECHNIQUE: Noncontrast 3 mm thick sections acquired from the T12 level to the sacrum. Sagittal and coronal reformats were constructed. For radiation dose reduction, the following was used: automated exposure control. COMPARISON: [facility], CT, CT LUMBAR SPINE WO CON, 07/07/2022, 12:11. FINDINGS: Image quality: Excellent. Bones: Interval left hemilaminectomy and partial facetectomy at L3-L4 and L4-L5 with posterior lateral belinda and pedicle screw fixation at L3 through L5 and interbody spacer placement at L3-L4 and L4-L5. Mild anterolisthesis of L4 on L5 is stable, measuring approximately 8 mm. Trace retrolisthesis of T12 on L1, of L1 on L2, and of L2 on L3. No acute vertebral body compression fractures. No suspicious lytic or blastic bony lesions. No pars defects. T12-L1: No canal stenosis or significant foraminal stenosis. L1-L2: Unchanged. Disc height loss. Mild retrolisthesis of L3 on L4. Mild facet hypertrophy. Mild canal stenosis. Moderate to severe bilateral foraminal stenosis with a degree of bilateral foraminal L1 nerve root impingement. L2-L3: Trace retrolisthesis of L2 on L3. Disc bulge. Facet and ligament hypertrophy. [id number] canal stenosis. Moderate to severe bilateral foraminal narrowing. There is a degree of left foraminal L2 nerve root impingement. L3-L4: Interval posterior lateral fusion and left laminectomy and partial facetectomy. No evidence of hardware failure or loosening. No canal stenosis. No significant foraminal stenosis identified. L4-L5: Interval posterior lateral fusion and left hemilaminectomy and partial facetectomy. No evidence of hardware failure or loosening. Exuberant right facet hypertrophy. L5-S1: Bilateral facet hypertrophy. No canal stenosis. Moderate right foraminal narrowing. Moderate to severe left foraminal narrowing. Soft tissues: No retroperitoneal masses or hematomas. Visualized aorta is normal in caliber. At least moderate sigmoid diverticulosis. At least moderate prostate enlargement. Bilateral fat containing inguinal hernias. IMPRESSION: 1. Interval left hemilaminectomy and partial facetectomy at L3-L4 and L4-L5 with posterior lateral fusion and interbody spacer placement at L3 through L5. Expected postoperative appearance. 2. Multilevel underlying facet arthropathy. 3. Canal stenosis is mild at L1-L2 and [id number] at L2-L3. 4. Significant multilevel foraminal narrowing as described above. Findings include moderate to severe bilateral foraminal narrowing at L1-L2 and L2-L3. There is moderate right foraminal narrowing and moderate to severe left foraminal narrowing at L5-S1 period 5. Sigmoid diverticulosis. 6. At least moderate prostate enlargement. 7. Bilateral fat containing inguinal hernias. Dictated by: Kevin Rojo M.D. on 01/03/2023 at 16:18 Approved by: Kevin Rojo M.D. on 01/03/2023 at 16:29
== END ==
PROVIDERS: Family Provider Family Medicine; PCP Family Medicine; Referring Provider Orthopaedic Surgery Orthopaedic Surgery of the Spine; Visit Provider Orthopaedic Surgery Orthopaedic Surgery of the Spine
DX: M47.816 Spondylosis without myelopathy or radiculopathy, lumbar region (principal); M47.817 Spondylosis without myelopathy or radiculopathy, lumbosacral region; M48.062 Spinal stenosis, lumbar region with neurogenic claudication; M48.07 Spinal stenosis, lumbosacral region; K57.30 Diverticulosis of large intestine without perforation or abscess without bleeding; N40.0 Benign prostatic hyperplasia without lower urinary tract symptoms; K40.20 Bilateral inguinal hernia, without obstruction or gangrene, not specified as recurrent; Z98.1 Arthrodesis status
CPT/HCPCS: 72131

== ENCOUNTER → 2023-03-01 13:00 | Outpatient (CLI) | payer MEDICARE, OTHER, SELFPAY ==
[2022-08-04 20:29] VITALS: BMI 28.1
--- NOTE | 2023-03-01 13:02 | DI.CT.S_ITS ---
PROCEDURE: CT SINUS SCREEN WO CON INDICATIONS: Chronic pansinusitis TECHNIQUE: Noncontrast 3.0 mm axial images acquired from the frontal sinuses to the mid-sella, with coronal and sagittal reformats. For radiation dose reduction, the following was used: automated exposure control, adjustment of mA and/or kV according to patient size. COMPARISON: [facility], MR, MR HEAD/BRAIN WO CON, 01/02/2018, 7:03. [facility], CT, CT HEAD/BRAIN WO CON, 01/26/2021, 12:54. FINDINGS: Image quality: Excellent. Maxillary Sinuses: There is partial demineralization of the superior medial beard of the maxillary sinuses, left worse than right. Moderate mucosal thickening can be seen within the inferior left maxillary sinus. Minimal mucosal thickening can be seen elsewhere within the paranasal sinuses. Ethmoid Air Cells: No bony remodeling or destruction. Mild mucosal thickening can be seen within the ethmoid air cells. Sphenoid Sinuses: No bony remodeling or destruction. Sinuses are clear. Frontal Sinuses: No bony remodeling or destruction. Sinuses are clear. Ostiomeatal Complexes: The ostiomeatal complexes are patent, yet they are constitutionally narrowed, with bilateral Trung cells. Miscellaneous: Visualized intra-orbital contents are normal. There is a right-sided ana maria bullosa is seen, which is partially opacified. There is mild leftward nasal septal deviation, with a leftward directed bony nasal septal spur. IMPRESSION: Paranasal sinus disease can be seen, which is worst within the left maxillary sinus. The ostiomeatal complexes are patent, yet they are constitutionally narrowed, with bilateral Trung cells. There is a right-sided ana maria bullosa is seen, which demonstrates partial opacification. Dictated by: Ahsan Narayanan M.D. on 03/01/2023 at 13:03 Approved by: Ahsan Narayanan M.D. on 03/01/2023 at 13:05
== END ==
LOC: CT 13:01
PROVIDERS: Family Provider Family Medicine; PCP Family Medicine; Referring Provider Otolaryngology; Visit Provider Otolaryngology
DX: J32.4 Chronic pansinusitis (principal); J34.89 Other specified disorders of nose and nasal sinuses; R44.8 Other symptoms and signs involving general sensations and perceptions; J34.3 Hypertrophy of nasal turbinates
CPT/HCPCS: 70486

== ENCOUNTER 2023-06-21 15:13 | Outpatient (CLI) | payer MEDICARE, OTHER, SELFPAY ==
[2022-08-04 20:29] VITALS: BMI 28.1
[2023-06-21] VITALS (8 sets, daily range): BP systolic 164–181; BP diastolic 79–93; PULSE 60–64; RESP 15–20; TEMP 37; O2SAT 95–100
--- NOTE | 2023-06-21 16:00 | DI.RAD.S_ITS ---
PROCEDURE: PAIN L/S TRANSFORAMINAL INJECT INDICATIONS: Right L5-S1 transforaminal HERLINDA COMPARISON: [facility], CR, XR LUMBAR SPINE 2 OR 3 VIEWS, 11/25/2022, 14:14. FINDINGS: Fluoroscopic spot filming was performed to verify placement of a spinal needle at the L5-S1 level. Appropriate location of the needle tip was confirmed by injection of iodinated contrast. IMPRESSION: No significant intraprocedural abnormality. Dictated by: Ahsan Narayanan M.D. on 06/21/2023 at 16:13 Approved by: Ahsan Narayanan M.D. on 06/21/2023 at 16:14
[2023-06-21] MEDS: MIDAZOLAM 2 MG/2 ML VIAL IV (16:29)
[2023-06-21] MEDS: iopamidoL 15 ML VIAL 3 ML INJ (16:34)
[2023-06-21] MEDS: BETAMETHASONE 30 MG/5 ML MDV 6 MG INJ (16:34)
[2023-06-21] MEDS: DEXAMETHASONE 10 MG/ML VIAL INJ (16:34)
[2023-06-21] MEDS: BUPIVACAINE 0.25% (PF) VIAL 2 ML INJ (16:35)
--- NOTE | 2023-06-21 16:52 | P.PCN_ITS ---
Date/Time/Diagnoses Date of procedure: 06/21/23 Time of procedure: 16:52 Pre-procedure diagnosis: FORAMINAL STENOSIS WITH LE SYMPTOMS Post-procedure diagnosis: same Procedure Notes Procedure: 1. FLUOROSCOPICALLY GUIDED CONTRAST CONTROLLED TRANSFORAMINAL EPIDURAL STEROID INJECTION - RIGHT L5/S1 TFESI Indications: Urs is referred by Dr. Sanabria for treatment of Foraminal Stenosis with Right LE Symptoms Physician: Bebeto Flores Total Fluoroscopy time (seconds): 11 Total sedation minutes: 12 Complications: none Procedure in detail & Post-procedure care: FINDINGS Foraminal Nerve Root Compression secondary to disc disease and facet hypertrophy DESCRIPTION OF PROCEDURE Following review of allergy and review of potential side effects and complications, including, but not necessarily limited to, infection, allergic reaction, local tissue breakdown, stroke, temporary or permanent nerve injury, paralysis, and possible , the patient indicated that the patient understood and agreed to proceed. An informed consent document was signed by the patient, witnessed by a nurse, and placed in the patient's chart. Additionally, other treatment options including medications, modalities, and physical therapy were reviewed with the patient. After review of previous anaesthesic history and IV conscious sedation the patient was deemed safe to proceed with today?s procedure with IV conscious sedation as ASA class II designation. Safety time-out was performed to confirm patient ID, procedure to be performed and site of procedure. IV sedation was accomplished with a combination of 2mg of Versed was administered by the RN after DO order, titrated to patient comfort during the course of the procedure while the patient remained responsive to all verbal commands In the prone position following sterile prep and drape of the lumbar region, the right L5/S1 posterior neuroforamen was identified fluoroscopically. The skin was anesthetized via a 25-gauge 1.5-inch needle with 1% lidocaine solution. At this point, a 25-gauge 3.5-inch spinal needle was atraumatically introduced and advanced under fluoroscopic guidance through the posterior right L5/S1 neuroforamen to approximately the anterior aspect of the canal. Depth was confirmed on lateral view. Following negative aspiration, injection of approximately 1.5cc of Isovue 200 under live fluoroscopy in the AP view confirmed excellent flow along the nerve root, into the epidural space without vascular or intrathecal uptake observed Radiological data, including multiple fluoroscopic views of the lumbosacral spine, reveal a spinal needle at the right L5/S1 posterior neuroforamen. Subsequent views show flow of contrast material flowing superiorly and inferiorly along the nerve root confirming epidural flow. Subsequently, a test dose of 1.5 cc of 1% lidocaine solution was administered and patient was observed for two minutes for signs or symptoms of complications, including abdominal pain, shortness of breath, bilateral upper or lower extremi ty weakness, nausea and vomiting, prior to steroid injection. At this point, a total of 2cc or 10mg of dexamethasone and 6mg of betamethasone was injected without incident. The procedure tolerated the procedure well without signs or symptoms of complications prior to transfer to the recovery area continued monitoring without incident. The patient was then transferred to the recovery area where they were observed for an appropriate time after the injection. The patient reported a VAS score of 7 prior to the procedure and a post- procedure VAS of 0. POST OP INSTRUCTIONS The patient was provided a Pain Log to continue to record their response to the target-specific procedure prior to follow-up visit with their referring physician. Additionally, specific post-injection care instructions and a contact number to our office were provided if concerns arise regarding possible complications associated with the procedure are suspected.
== END 2023-06-21 17:14 | disposition home or self-care (01) ==
PROVIDERS: Family Provider Family Medicine; PCP Family Medicine; Referring Provider Physical Medicine & Rehabilitation; Visit Provider Physical Medicine & Rehabilitation
DX: M48.062 Spinal stenosis, lumbar region with neurogenic claudication (principal); M51.17 Intervertebral disc disorders with radiculopathy, lumbosacral region
CPT/HCPCS: 64483; 99152; J0702; J1100; J2250; J3490

== ENCOUNTER → 2023-07-29 06:39 | Outpatient (CLI) | payer MEDICARE, OTHER, SELFPAY ==
[2022-08-04 20:29] VITALS: BMI 28.1
--- NOTE | 2023-07-29 06:42 | DI.US.S_ITS ---
PROCEDURE: US THYROID INDICATIONS: Localized swelling, mass and lump, neck TECHNIQUE: Real-time scanning was performed of the thyroid gland, with image documentation. COMPARISON: None. FINDINGS: Thyroid: History of thyroidectomy. No discernible thyroid tissues identified. No suspicious masses. Lymph nodes appear within normal limits. IMPRESSION: Status post thyroidectomy. No discernible thyroid tissue. No masses or abnormal lymph nodes. Dictated by: Vamshi Thompson M.D. on 07/29/2023 at 10:33 Approved by: Vamshi Thompson M.D. on 07/29/2023 at 10:34
== END ==
LOC: US 06:40
PROVIDERS: Family Provider Family Medicine; PCP Family Medicine; Referring Provider Family Medicine; Visit Provider Family Medicine
DX: R22.1 Localized swelling, mass and lump, neck (principal); E89.0 Postprocedural hypothyroidism
CPT/HCPCS: 76536

== ENCOUNTER → 2023-09-09 11:23 | Outpatient (CLI) | payer MEDICARE, OTHER, SELFPAY ==
[2023-08-31 15:15] VITALS: BMI 28.1
--- NOTE | 2023-09-09 11:24 | DI.RAD.S_ITS ---
PROCEDURE: XR CHEST 2V INDICATIONS: Pneumonia, unspecified organism TECHNIQUE: 2 views of the chest were acquired. COMPARISON: [facility], CR, XR CHEST 2V, 01/28/2021, 9:43. FINDINGS: Surgical changes and devices: There is cardiac pacemaker over the left chest wall 2 leads in the heart. Right shoulder arthroplasty. Lungs and pleura: Lungs show parenchymal scarring or plate atelectasis in the lung bases. Findings are similar to those of the study of 01/28/2021. No consolidation. No mass lesions. No pleural effusion or pneumothorax.. Mediastinum: Mediastinal contours are normal. The heart is normal in size. There is tortuosity in the aorta. Bones and chest wall: Lateral image shows postsurgical fusion in the lumbar spine. Mild spurring seen in the thoracic spine IMPRESSION: Low atelectatic changes. Cardiac pacemaker. Dictated by: Eb Bardales M.D. on 09/09/2023 at 12:19 Approved by: Eb Bardales M.D. on 09/09/2023 at 12:26
== END ==
PROVIDERS: Family Provider Family Medicine; PCP Family Medicine; Referring Provider Family Medicine; Visit Provider Family Medicine
DX: J18.9 Pneumonia, unspecified organism (principal); Z95.0 Presence of cardiac pacemaker
CPT/HCPCS: 71046

== ENCOUNTER → 2023-11-07 17:12 | Outpatient (CLI) | payer MEDICARE, OTHER, SELFPAY ==
[2023-08-31 15:15] VITALS: BMI 28.1
--- NOTE | 2023-11-07 17:15 | DI.RAD.S_ITS ---
PROCEDURE: XR CHEST 2V INDICATIONS: COUGH TECHNIQUE: 2 views of the chest were acquired. COMPARISON: [facility], CR, XR CHEST 2V, 09/09/2023, 11:26. FINDINGS: Heart, mediastinum and pulmonary vasculature: Mild cardiomegaly is unchanged 3 dual-chamber pacemaker leads in stable satisfactory position. Mediastinum and pulmonary vessels are normal. Lungs: Scattered atelectasis and/or fibrosis seen in both lung bases. Pleural spaces: Normal-no effusions or pneumothorax. Bones and soft tissues: Normal IMPRESSION: Scattered atelectasis and/or fibrosis both lung bases- unchanged Dictated by: Gino Moreland M.D. on 11/08/2023 at 8:51 Approved by: Gino Moreland M.D. on 11/08/2023 at 8:52
== END ==
PROVIDERS: Family Provider Family Medicine; PCP Family Medicine; Referring Provider Family Medicine; Visit Provider Family Medicine
DX: R05.1 Acute cough (principal); I51.7 Cardiomegaly
CPT/HCPCS: 71046

== ENCOUNTER → 2023-11-09 11:29 | Outpatient (CLI) | payer MEDICARE, OTHER, SELFPAY ==
[2023-08-31 15:15] VITALS: BMI 28.1
== END ==
PROVIDERS: Family Provider Family Medicine; PCP Family Medicine; Visit Provider Urology
DX: N39.0 Urinary tract infection, site not specified (principal); N40.1 Benign prostatic hyperplasia with lower urinary tract symptoms; R35.0 Frequency of micturition; N32.0 Bladder-neck obstruction; Z87.898 Personal history of other specified conditions; Z87.438 Personal history of other diseases of male genital organs; Z41.2 Encounter for routine and ritual male circumcision; Z87.440 Personal history of urinary (tract) infections; Z87.891 Personal history of nicotine dependence
CPT/HCPCS: 51798; 81002; 87086; 99214

== ENCOUNTER → 2023-11-18 15:23 | Outpatient (CLI) | payer MEDICARE, OTHER, SELFPAY ==
[2023-08-31 15:15] VITALS: BMI 28.1
[2023-11-18 16:39] LABS: Add Manual Diff / Slide Review NO; Basophils Absolute Auto 100 /uL (0-100); Basophils Percent Auto 0.7 % (0-2); Eosinophils Absolute Auto 200 /uL (0-450); Eosinophils Percent Auto 2.4 % (2-4); Hematocrit 34.2 % (41-53); Hemoglobin 11.3 g/dL (13.5-17.5); Lymphocytes Absolute Auto 1800 /uL (1100-4500); Lymphocytes Percent Auto 20.1 % (25-40); Mean Corpuscular HGB Conc 33.1 % (30-36); Mean Corpuscular Hemoglobin 27.9 PG (26-34); Mean Corpuscular Volume 84.3 fL (80-100); Monocytes Absolute Auto 700 /uL (0-900); Monocytes Percent Auto 7.7 % (3-14); Neutrophils Absolute Auto 6100 /uL (1500-7000); Neutrophils Percent Auto 69.1 % (50-75); Platelet Count 500 X10^3/uL (150-400); Red Blood Cell Count 4.06 X10^6/uL (4.5-5.9); Red Cell Distribution Width 15.5 % (11.6-14.8); White Blood Cell Count 8.9 X10^3/uL (4.5-11.0)
[2023-11-18 16:58] LABS: BUN Creatinine Ratio 30.6 (6-22); Blood Urea Nitrogen 37 mg/dL (9-20); Calcium 8.9 mg/dL (8.4-10.2); Carbon Dioxide 34 mmol/L (22-32); Chloride 99 mmol/L (98-107); Estimated Glomerular Filt Rate 59 mL/min (>60); Glucose 116 mg/dL (80-110); HEMOLYSIS < 15 (0-50); Potassium 3.7 mmol/L (3.4-5.1); Sodium 139 mmol/L (137-145)
== END ==
PROVIDERS: Family Provider Family Medicine; PCP Family Medicine; Referring Provider Internal Medicine Cardiovascular Disease; Visit Provider Internal Medicine Cardiovascular Disease
DX: I48.0 Paroxysmal atrial fibrillation (principal)
CPT/HCPCS: 36415; 80048; 85025

== ENCOUNTER → 2023-11-25 11:57 | Outpatient (CLI) | payer MEDICARE, OTHER, SELFPAY ==
[2023-08-31 15:15] VITALS: BMI 28.1
--- NOTE | 2023-11-25 11:59 | DI.NM.S_ITS ---
PROCEDURE: NM MICHAEL PERF SPECT R&S PHARM Rest and pharmacological stress myocardial perfusion SPECT with gated imaging and ejection fraction RADIOPHARMACEUTICAL: 25.4 mCi Tc-99m tetrafosmin IV at rest and 26.2 mCi Tc-99m tetrafosmin IV at peak effect of pharmacological stress. [id number] was performed. INDICATIONS: PAROX AFIB TECHNIQUE: Radiopharmaceutical was injected at peak stress test, and also at rest. SPECT images were obtained. SPECT myocardial perfusion images were displayed in short axis, horizontal long axis, and vertical long axis views. Gated images were reviewed using [employer] software. COMPARISON: None. CARDIAC STRESS: A pharmacologic stress test was performed under the supervision of an attending staff, using an infusion of lexiscan 0.4mg IV X1. Hemodynamic data: There is normal blood pressure and heart rate response to pharmacologic stress. Symptoms: The patient denied anginal chest pain. Aminophylline: none EKG: Atrial fibrillation present during the entire study. No diagnostic changes of ischemia; no ectopy. FINDINGS: Raw data: There is good myocardial uptake of radiotracer. No significant motion artifacts. Fhym-[id number] ratio is 0.3 (normal is less than 0.38 for tetrafosmin tracer). Left ventricle function: Gated images demonstrate normal left ventricular wall thickening. No segmental wall motion abnormalities. No transient ischemic dilation; TID is 1.05 (normal less than 1.3). Left ventricle resting end diastolic volume is 106mL. Left ventricle stress ejection fraction is 71%; normal range is above 45%. Myocardial perfusion: There is a mildly intense fixed inferior wall defect that resolves with prone imaging, suggesting diaphragmatic attenuation artifact. No ischemia and no infarction present. IMPRESSION: Low risk, normal pharm nuclear stress test. 1) Mildly intense fixed inferior wall defect that resolves with prone imaging, suggesting diaphragmatic attenuation artifact. No ischemia and no infarction present. 2) Normal left ventricular size, wall motion, and systolic function (EF post stress 71%). 3) No diagnostic ST changes with lexiscan. 4) No angina during the study. 5) No prior nuclear stress test available for comparison. Dictated by: Ashley Sun MD on 11/30/2023 at 14:25 Approved by: Ashley Sun MD on 11/30/2023 at 14:28
== END ==
LOC: NUCM 11:58
PROVIDERS: Family Provider Family Medicine; PCP Family Medicine; Referring Provider Internal Medicine Cardiovascular Disease; Visit Provider Internal Medicine Cardiovascular Disease
DX: I48.0 Paroxysmal atrial fibrillation (principal)
CPT/HCPCS: 78452; 93017; A9502; J2785

== ENCOUNTER → 2023-12-13 08:01 | Outpatient (CLI) | payer MEDICARE, OTHER, SELFPAY ==
[2023-08-31 15:15] VITALS: BMI 28.1
--- NOTE | 2023-12-13 | DI.ECHO.S_ITS ---
[place] [facility] : : [id number] : : [place] : : [id number] : : Phone: [phone] Echocardiogram Report + + :Name: LUPE ARNOLD Study Date: 12/13/2023 Height: 67 in : :[facility] ReadingLocation: Weight: 178 lb : : Gender: Male BSA: 1.9 m2 : :: 1940 Age: 83 yrs BP: 147/82 mmHg: :Reason For Study: PAROX AFIB : :Ordering Physician: MORTEZA, : :ELIZABETH Performed By: Trish Issa : :Referring: ELIZABETH PRO : + + Interpretation Summary 1) Normal left ventricular size with mildly reduced systolic function (EF 45- 50%). 2) Normal right ventricular size and function. 3) There is mild mitral regurgitation. 4) There is mild aortic regurgitation. 5) The ascending aorta is mildly enlarged at 4.1cm. 6) Compared to the Echo done 03/05/2021, LVEF has decreased from 50-55% to 45- 50% on this study. Procedure: A two-dimensional transthoracic echocardiogram with color flow and Doppler was performed. The study quality was technically good. Comparison is made with the echocardiogram of 03/05/2021. The patient has a paced rhythm. The heart rate ranged between 60-68 bpm during the study. The patient had occasional PVCs during the exam. Left Ventricle: There is mild concentric left ventricular hypertrophy. The ejection fraction is estimated to be 45-50%. There is a significant dyssynchronous contraction pattern, consistent with a conduction abnormality. Diastolic parameters suggest a relaxation abnormality of the left ventricle, consistent with probable normal filling pressures. Right Ventricle: The right ventricle is normal in size and function. Atria: The left atrium is moderately dilated. Right atrial size is normal. There is no Doppler evidence for an interatrial shunt. Lipomatous hypertrophy of the interatrial septum is noted. Mitral Valve: The mitral valve leaflets appear normal. There is no evidence of stenosis, fluttering, or prolapse. There is no mitral valve stenosis. There is mild mitral regurgitation. Aortic Valve: The aortic valve is trileaflet. The aortic valve opens well. There is no aortic valve stenosis. There is mild aortic regurgitation. Tricuspid Valve: The tricuspid valve leaflets are thin and pliable. There is a trace or physiologic amount of tricuspid regurgitation. Pulmonic Valve: The pulmonic valve leaflets are thin and pliable; valve motion is normal. There is a trace or physiologic amount of pulmonic regurgitation. Great Vessels: The aortic root is borderline dilated. The ascending aorta is mildly enlarged. The aortic arch could not be visualized. The pulmonary artery is normal size. The IVC is of normal diameter and collapses greater than 50% with a sniff. This suggests a low right atrial pressure of 3 mm Hg. Pericardium/ Pleura There is an anterior echo-free space consistent with a fat pad. There is no pericardial effusion. There is no pleural effusion. MMode/2D Measurements & Calculations LVIDd: 5.3 cm LVOT diam: 2.2 cm LVIDs: 4.0 cm Ao root diam: 4.0 cm FS: 24.1 % asc Aorta Diam: 4.1 cm EPSS: 1.0 cm IVSd: 1.3 cm LVPWd: 1.1 cm LV rubio. diameter/BSA (cm/m^2): 2.7 LV sys. diameter/BSA (cm/m^2): 2.1 LA A2 area: 32.5 cm2 RA long axis: 6.9 cm LA A4 area: 22.3 cm2 RA area: 19.6 cm2 LA length (vol): 5.9 cm RA vol: 47.8 ml LA vol: 105.2 ml RA : 24.9 ml/m2 LA vol index: 54.7 ml/m2 IVC diam: 2.1 cm TAPSE: 1.6 cm Doppler Measurements & Calculations Ao V2 max: 129.7 cm/sec LVOT Max Keenan: 90.7 cm/sec Ao V2 mean: 86.7 cm/sec LV V1 max P.3 mmHg Ao max P.7 mmHg LV V1 VTI: 19.0 cm Ao mean P.4 mmHg JAYLA(I,D): 2.6 cm2 Ao V2 VTI: 27.7 cm JAYLA(V,D): 2.6 cm2 sev ratio: 0.69 JAYLA indexed to BSA (cm^2/m^2): 1.3 MV E max keenan: 80.9 cm/sec TR max keenan: 212.8 cm/sec MV A max keenan: 68.6 cm/sec TR max P.1 mmHg MV E/A: 1.2 PA V2 max: 74.6 cm/sec Med Peak E' Keenan: 6.1 cm/sec PA V2 mean: 52.1 cm/sec E/E' med: 13.3 PA mean P.2 mmHg Lat Peak E' Keenan: 10.2 cm/sec PA pr(Accel): 60.2 mmHg E/E' lat: 7.9 E/e' average: 10.6 MV dec time: 0.19 sec MVA(VTI): 2.2 cm2 MV V2 mean: 46.4 cm/sec SV(LVOT): 71.4 ml MV mean P.0 mmHg MV V2 VTI: 32.4 cm Reading Physician:10:24 AM
== END ==
PROVIDERS: Family Provider Family Medicine; PCP Family Medicine; Referring Provider Internal Medicine Cardiovascular Disease; Visit Provider Internal Medicine Cardiovascular Disease
DX: I08.0 Rheumatic disorders of both mitral and aortic valves (principal); I48.0 Paroxysmal atrial fibrillation; I77.89 Other specified disorders of arteries and arterioles
CPT/HCPCS: 93306

== ENCOUNTER → 2023-12-23 15:49 | Outpatient (CLI) | payer MEDICARE, OTHER, SELFPAY ==
[2023-08-31 15:15] VITALS: BMI 28.1
--- NOTE | 2023-12-23 15:50 | DI.CT.S_ITS ---
PROCEDURE: CT LUMBAR SPINE WO CON INDICATIONS: SPINAL STENOSIS / EVAL NEURO STRUCTURES AND FUSION TECHNIQUE: Noncontrast 3 mm thick sections acquired from the T12 level to the sacrum. Sagittal and coronal reformats were constructed. For radiation dose reduction, the following was used: automated exposure control. COMPARISON: [facility], CT, CT LUMBAR SPINE WO CON, 07/07/2022, 12:11. [facility] [place], CR, XR LUMBAR SPINE 2 OR 3 VIEWS, 12/20/2023, 13:35. [facility], CT, CT LUMBAR SPINE WO CON, 01/03/2023, 14:58. FINDINGS: Image quality: There is artifact associated with the metallic hardware. Artifact from the metallic hardware is reduced by metal reconstruction algorithm. Bones: Postoperative changes are seen, with bilateral pedicle screws at the L3, L4, and L5 levels. The screws appear well placed. Vertical fixation rods are seen. Disc spacers are seen at L3-L4 and L4-L5. There is a mild degree of lucency seen adjacent to the L5 screws. No other findings of hardware failure or hardware loosening can be seen. There has been removal of portions of the posterior elements. No acute vertebral body compression fractures. No suspicious lytic or blastic bony lesions. No pars defects. There is mild retrolisthesis seen at T12-L1, L1-L2, and L2-L3. Mild grade 1 anterolisthesis is seen at L4-L5. There is a left-sided unilateral pars defect at the L4 level (series 6, image 23). T12-L1: Mild loss of disc height is seen. Moderate generalized disc bulge is seen. At least moderate bilateral neural foraminal narrowing can be seen. Mild central canal narrowing is seen. When comparison is made with the prior images, these findings are similar. L1-L2: Mild loss of disc height is seen. Vacuum disc phenomenon is seen at this level. Moderate generalized disc bulge is seen. There is a central disc osteophyte protrusion seen. Mild to moderate facet hypertrophy is seen. There is moderate to severe bilateral neural foraminal narrowing. Mild to moderate central canal narrowing is seen. When comparison is made with the prior images, these findings are similar. L2-L3: There is mild loss of disc height. Vacuum disc phenomenon is seen at this level. At least moderate disc bulge is seen. There is a central disc osteophyte protrusion seen. Mild facet joint hypertrophy is seen. There is moderate to severe bilateral neural foraminal narrowing seen. Moderate central canal narrowing is seen. These imaging findings have mildly progressed compared to the prior study. L3-L4: Postoperative changes are seen at this level. Moderate generalized disc bulge is seen. There is moderate right-sided and no left-sided neural foraminal narrowing. No central canal narrowing is seen. When comparison is made with the prior images, these findings are similar. L4-L5: Moderate generalized disc osteophyte complex is seen. There is prominent right-sided and moderate left-sided moderate facet hypertrophy seen. There is at least moderate right-sided and no left-sided neural foraminal narrowing. No central canal narrowing is seen. When comparison is made with the prior images, these findings are similar. L5-S1: Moderate loss of disc height is seen. Moderate generalized disc osteophyte complex is seen. Moderate facet joint hypertrophy is seen. Moderate bilateral neural foraminal narrowing can be seen. No significant central canal narrowing is seen. When comparison is made with the prior images, these findings are similar. Soft tissues: No retroperitoneal masses or hematomas. Visualized aorta is normal in caliber. Atherosclerotic calcification is noted. IMPRESSION: L3 through L5 postoperative hardware. There is mild lucency seen adjacent to the L5 screws, which is consistent with early loosening change. The hardware otherwise is unremarkable. Grade 1 anterolisthesis seen at the L4-L5 level, with anal lateral pars defect on the left at L4. Multiple levels of degenerative change are seen, which are similar to the prior. Dictated by: Ahsan Narayanan M.D. on 12/26/2023 at 16:52 Approved by: Ahsan Narayanan M.D. on 12/26/2023 at 16:58
== END ==
PROVIDERS: Family Provider Family Medicine; PCP Family Medicine; Referring Provider Orthopaedic Surgery Orthopaedic Surgery of the Spine; Visit Provider Orthopaedic Surgery Orthopaedic Surgery of the Spine
DX: M48.062 Spinal stenosis, lumbar region with neurogenic claudication (principal); M43.16 Spondylolisthesis, lumbar region; M47.816 Spondylosis without myelopathy or radiculopathy, lumbar region; M47.817 Spondylosis without myelopathy or radiculopathy, lumbosacral region; Z98.1 Arthrodesis status
CPT/HCPCS: 72131

== ENCOUNTER 2023-12-29 13:00 | Outpatient (RCR) | payer MEDICARE, OTHER, SELFPAY ==
[2023-08-31 15:15] VITALS: BMI 28.1
--- NOTE | 2023-10-10 15:31 | PT.OIE ---
Current Diagnoses Unilateral primary osteoarthritis, right knee (10/10/23) Stiffness of right knee, not elsewhere classified (10/10/23) Other lack of coordination (10/10/23) Weakness (10/10/23) Encounter for other preprocedural examination (10/10/23) Past Medical History (Last Reviewed 08/31/23 @ 15:07 by Bebeto Flores DO) Abnormal prostate by palpation Acquired phimosis of penis Acute metabolic encephalopathy Afib Anemia Balanitis BCC (basal cell carcinoma) (2022) Benign prostatic hyperplasia Bladder outlet obstruction 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 Corneal abrasion Degenerative joint disease of knee Dementia DJD of right shoulder Excessive daytime sleepiness Gross hematuria Hearing impaired History of phimosis of penis History of tobacco use History of urinary retention History of urinary tract infection Hypertension Hypothyroidism associated with surgical procedure Lower urinary tract symptoms Lumbar spinal stenosis Male circumcision Memory changes Obstructive sleep apnea of adult Osteoarthritis 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) Pancreatic cyst PANCREATIC CYSTS Primary insomnia Rectal bleeding Restless legs syndrome (RLS) Sensitive skin Sepsis Skin cancer Snoring Spinal stenosis, lumbar region with neurogenic claudication Past Surgical History (Last Reviewed 08/31/23 @ 15:07 by Bebeto Flores DO) H/O shoulder surgery History of ankle surgery 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 History of urologic surgery (04/02/21) Hx of bilateral cataract extraction Hx of thyroidectomy (~1989) Hx of tonsillectomy Visit Care Team Role Provider Type Annetta Sanabria MD Attending Provider Physician Family Provider Primary Care Provider Referring Provider Specialty: [facility] Address: [address] [place] [address] [place], [address] Email: [email or web address] Physical Therapy Initial Evaluation PT-OP-A Visit Information Start: 09/21/23 17:54 Freq: Status: Active Protocol: Document 10/10/23 13:47 NM (Rec: 10/10/23 15:09 NM [id number]) Out-Patient Physical Therapy Visit Information Visit Information Visit Type Initial Evaluation Visit Note KX after 19 visits Ors Visit Start Time 13:47 Visit Stop Time 14:35 Visit Number 1 Evaluation Information Evaluation Date 10/10/23 Precautions Precautions pacemaker, Afib; hx high blood pressure; fall risk PT-OP-B Current Condition Start: 09/21/23 17:54 Freq: Status: Active Protocol: Document 10/10/23 13:47 NM (Rec: 10/10/23 15:09 NM [id number]) Current Condition History of Current Condition Onset Date DOS 09/29/23; chronic knee pain Current Complaints pain, limited mobility History of Current Condition Pt presents with R knee pain s /p partial TKA on 09/29/23. Dr. Still performed the surgery. States medial portion of knee was replaced. Pt is using spc in R hand. He had spinal surgery last year (July 2022), fusion of 3 vertebrae. He continues to have pain in his spine and neural symptoms ( reports tingling) in R thigh to R toes, but states that he no longer has spinal precautions. He did have PT following the surgery, but states it was minimal and not helpful. He had L TKA 2015 with good results. He has follow up with Dr. Still on Tuesday, 10/12. Prior to surgery , pt was using his spc ( baseline), primarily for balance. He is also using a 4WW at house (ground floor), uses spc outside (easier due to car). Pt lives with his , Mariann, who helped provide hx. They live in a house with an elevator, with 20 stairs (rails- B); however, pt does not use the stairs. Pt reports that his knee has been hurting since at least 1 year pre-op, before his back started to hurt. Pt had a cortisone shot prior to surgery. Pt had a fall back in January 2022, which is what originally injured his back. No falls since surgery. Pt has PMH of Afib, pacemaker. Pt reports sciatica in his RLE- thigh. Wearing compression stockings Prior Treatments and Tests previous lumbar fusion L3-L5 in 07/2022 Treatment Goals Patient/Caregiver Goals to get better again, to reduce pain, improve mobility Prior Functional Status Baseline Function- ADL's Independent Baseline Function- Mobility Independent Baseline Function- Gait ambulation around [place] Baseline Function- Recreation/Hobbies bicycling (stationary), hiking Current Functional Impairments (Reported) Functional Limitations- ADL's no difficulty with dressing walk in shower w/ grab bars, reports no difficulty Functional Limitations- Mobility/Gait currently unable to ambulate around the block WB Functional Limitations- Other pt reports pain with transfers to/from toilet- back and knee PT-OP-C Subjective Start: 09/21/23 17:54 Freq: Status: Active Protocol: Document 10/10/23 13:47 NM (Rec: 10/10/23 15:09 NM [id number]) OP-PT Subjective Patient Comments Patient Comments pt consents to participate in evaluation Patient Questionnaires Lower Extremity Functional Scale LEFS Score 1080 OP-PT Pain Assessment Location R knee Pain Location Details medial knee Intensity 5 Scale Used Numeric (0 - 10) Description Sharp Frequency Frequent Pain Aggravating Factors Exercise,Standing,Sitting, Walking Pain Alleviating Factors Cold,Medication,Elevation,Rest Home Pain Medication Use Pain Medications Used oxycodone Comments Pain Comments Pt states that his low back continues to hurt post-fusion PT-OP-E Functional Tests Start: 10/10/23 15:18 Freq: Status: Active Protocol: Document 10/10/23 13:47 NM (Rec: 10/10/23 15:19 NM [id number]) Functional Tests 2 Minute Walk Test Distance 148 ft Device Used [facility] [place] Comments fatigues, demos difficulty w/ sequencing PT-OP-F Manual Assessment Start: 09/21/23 17:54 Freq: Status: Active Protocol: Document 10/10/23 13:47 NM (Rec: 10/10/23 15:09 NM [id number]) Manual Assessments Soft Tissue Assessment Soft Tissue Mobility Assessment Restrictions of R hamstring and quad limiting ROM, decreased heel cord length B Joint Mobility Assessment Joint Mobility Assessment Empty end feel with PROM to pt tolerance PT-OP-G Mobility & Gait Start: 09/21/23 17:54 Freq: Status: Active Protocol: Document 10/10/23 13:47 NM (Rec: 10/10/23 15:09 NM [id number]) OP Mobility Evaluation Bed Mobility Rolling IND Supine to and from Sit IND; demos slight SLR to move RLE on/off table without assist Transfers Sit to Stand close SBA with BUE on chair or 1 UE on spc OP Gait Assessment Gait Gait Assistance Required: Standby Assistance,Contact Guard Assist Distance (Feet) 150 Assistive Devices Assistive Device Gait Belt,Straight Cane Gait Deviations General Gait Pattern Antalgic,Decreased Stride Length,Decreased Feet Clearance Factors Limiting Gait Function Factors Limiting Gait Function Decreased Activity Tolerance, Decreased Sensation,Decreased Strength,Limited Range of Motion,Pain,Poor Balance Comments Gait Comments Demos slight hip ER with RLE, decreased foot clearance and TKE in stance, limited R hip/ knee flexion in swing. Shuffles as fatigues and demos several instances of LOB with CGA to steady as distance increases and fatigues. Pt used to spc in R hand previously PT-OP-H Neuro Start: 10/10/23 15:10 Freq: Status: Active Protocol: Document 10/10/23 13:47 NM (Rec: 10/10/23 15:14 NM [id number]) Sensation Evaluation Comments Summary Comments BLE equally intact to light touch sensation PT-OP-J Posture/Palpation/Skin Start: 10/10/23 15:10 Freq: Status: Active Protocol: Document 10/10/23 13:47 NM (Rec: 10/10/23 15:14 NM [id number]) Posture Evaluation Position Standing Head/C-Spine Posture Forward Head Shoulder Posture (L) Rounded,(R) Rounded Arm Posture (L) Externally Rotated,(R) Externally Rotated Pelvis Posture Anteriorly Tilted Weight Distribution Weight Shifted Left Hip Posture (R) Externally Rotated Knee Posture (L) Genu Valgus,(R) Genu Valgus Palpation Assessment Location R knee Palpation Findings Soft Tissue Tightness Palpation Details Tenderness along medial knee, patella Increased edema at knee > ankle Skin Assessment Circumference Measurement R knee Location measured at patella Measurement (Centimeters) 43 Comments L knee: 40 cm R ankle Location figure 8 Measurement (Centimeters) 54 Comments L ankle: 51.5 cm Incisional Assessment Incision Appearance/Comments Incision is covered by bandage , which is clean, dry, and intact. No signs or symptoms of DVT or infection Other Assessments Skin Assessment Comments RLE is equal temperature and color PT-OP-K Range of Motion Start: 09/21/23 17:54 Freq: Status: Active Protocol: Document 10/10/23 13:47 NM (Rec: 10/10/23 15:09 NM [id number]) Knee Goniometric Range of Motion Knee Right Flexion Active (degrees) 112 Extension Active (degrees) 10 Comments 5 deg ext lacking w/ quad set Left Flexion Active (degrees) 122 Extension Active (degrees) 1 PT-OP-M Strength Start: 09/21/23 17:54 Freq: Status: Active Protocol: Document 10/10/23 13:47 NM (Rec: 10/10/23 15:09 NM [id number]) Hip Strength Hip Manual Muscle Testing Right Flexion (L2) 4- Good- Extension (S1) 4- Good- Abduction 4- Good- Adduction 4 Good Internal Rotation 4 Good Comments tested in sitting due to time Left Flexion (L2) 4- Good- Extension (S1) 4 Good Abduction 4- Good- Adduction 4 Good Comments tested in sitting due to time Knee Strength Knee Manual Muscle Testing Right Flexion (S2) 3 Fair Extension (L3) 3 Fair Comments Mild pain with extension against gravity Left Flexion (S2) 4 Good Extension (L3) 4 Good Ankle/Foot Strength Ankle and Foot Manual Muscle Testing Right Dorsiflexion (L4) 4 Good Plantarflexion (S1) 4 Good Comments tested in sitting Left Dorsiflexion (L4) 4 Good Plantarflexion (S1) 4 Good Comments tested in sitting PT-OP-Q Treatments Start: 09/21/23 17:54 Freq: Status: Active Protocol: Document 10/10/23 13:47 NM (Rec: 10/10/23 15:09 NM [id number]) Therapeutic Exercises Sitting Exercises quad set Side right Resistance AROM Equipment Used long sitting w/ towel roll under knee Reps/Minutes 10x3 Comments good quad activation heel slides Sitting Exercise Name HEP Side right Resistance AROM Equipment Used long sitting Reps/Minutes 10 Gait Training Gait Activity spc Device Used spc Level of Assistance CGA with moderate cueing Surface stable Distance/Duration 100 ft, 50 ft- ~8 minutes Treatment Focus spc placement, sequencing WB Comments Requires increased time as fatigues. Due to tendency for spc in R hand, educated on rationale of spc in L hand to offload RLE. Moderate cueing for spc placement and sequencing to limit pt attempting several steps before advancing spc. Demos step-through pattern with smaller step length using RLE, difficulty with coordination Self-Care/Home Management Treatment Education Patient Education Fall Risk,Pain Management Other Education Educated on elevation with pillow under calf/ankle vs under knee when sleeping or icing. Recommended pt place pillow between legs when sleeping and limit amount of sustained knee flexion when side sleeping. Educated on 20 min time interval when icing with elevation PT-OP-T Assessment and Plan Start: 09/21/23 17:54 Freq: Status: Active Protocol: Document 10/10/23 13:47 NM (Rec: 10/10/23 15:09 NM [id number]) Physical Therapy Assessment Rehab Potential Rehabilitation Potential Good Evaluation Complexity Number of Personal Factors/Comorbidities 3 or More Number of Body Systems Impaired 4 or More Clinical Presentation at Evaluation Stable Impairments Impairments Activity Tolerance,Balance, Edema,Functional Activities, Functional Mobility,Gait, Integument,Pain,Posture,ROM, Sensation,Soft Tissue Mobility ,Strength,Transfers Other Concerns Barriers to Rehabilitation Pt continues to have back and R hip pain, in addition to neural symptoms following spinal fusion in 2022, which limits his activity tolerance Goals Four Impairment STS Short Term Goal (STG) Pt will be able to perform at least 10 STS to LRAD and no increase in R knee pain with transfer in order to demonstrate improved BLE strength for bathroom transfers STG Duration 4 weeks Snf Goal (LTG) Pt will be able to perform 5x STS within age-related norms in order to demonstrate improved BLE strength for transfers and gait LTG Duration 12 weeks Three Impairment 2 MWT distance 148 ft with spc Short Term Goal (STG) Pt will normalize gait mechanics with LRAD and no pain in R knee with WB in order for pt to return to daily walks around his neighborhood STG Duration 4 weeks Snf Goal (LTG) Pt will be able to complete 6 MWT with LRAD and no increase in R knee pain with WB in order for pt to return to daily ambulation within community gant LTG Duration 12 weeks Two Impairment strength R knee 3/5 Short Term Goal (STG) Pt will improve R knee flexion and extension strength to at least 4-/5 in order to demonstrate increased strength for gait, transfers STG Duration 8 weeks Snf Goal (LTG) Pt will improve R knee flexion and extension strength to at least 4+/5 in order to demonstrate increased strength for gait, transfers LTG Duration 12 weeks One Impairment R knee AROM lacking 10 - 112 deg Short Term Goal (STG) Pt will improve R knee AROM to at least lacking 5 deg - 118 deg in order to demonstrate improved mobility for transfers, gait, and stairs STG Duration 6 weeks Snf Goal (LTG) Pt will increase R knee AROM to at least 1 deg - 120 deg in order to demonstrate improved mobility for transfers, gait, and stairs LTG Duration 12 weeks Assessment Summary Assessment Pt is an 82 y.o. presenting s/ p R partial knee replacement on 09/29/23. Pt is currently 1. 5 weeks post-op. He is using an spc and 4WW for gait. Pt's pain is managed currently by medication and cryotherapy. He has impairments in ROM, strength, gait, transfers, balance, edema management, pain, sleep, and activity tolerance. Pt is currently lacking full knee flexion and extension AROM. Pt has good quad activation. His 2 MWT distance is 148 ft with spc, which is fatiguing. Pt's pain is increased with WB on RLE. Emphasis during evaluation on improving safety and spc placement during gait; pt has been using spc in R hand. PT educated pt on exam findings and plan of care. Pt would benefit from skilled PT to improve R knee ROM and strength in order to improve functional mobility for community ambulation and transfers. Physical Therapy Plan Frequency and Duration Frequency of Treatment 1-2x/wk Duration of treatment (weeks) 12 Plan of Care Start Date 10/10/23 Plan of Care End Date 01/06/24 Therapeutic Interventions Therapeutic Interventions Balance Training,Gait Training ,Home Exercise Program,Joint Mobilizations,Manual Therapy, Neuromuscular Re-education, Orthotic/Prosthetic Management ,Patient/Caregiver Education, Self-Care/Home Management, Sensory Integration,Soft Tissue Mobilization,Taping, Therapeutic Activities, Therapeutic Exercises Modalities Cold Pack/Ice Massage,Hot Packs,Vasopneumatic Devices Other Therapeutic Interventions no e-stim due to pacemaker Next Visit Focus/Plan Next Note Type Treatment Note Next Visit Plan review gait training with spc STS, quad set, LAQ, Manual treatment POC: normalize gait mechanics with spc, balance, transfers, R knee ROM, functional strength
--- NOTE | 2023-10-12 11:08 | PT.OTN ---
Current Diagnoses Unilateral primary osteoarthritis, right knee (10/12/23) Stiffness of right knee, not elsewhere classified (10/12/23) Other lack of coordination (10/12/23) Weakness (10/12/23) Encounter for other preprocedural examination (10/12/23) Physical Therapy Treatment Note PT-OP-A Visit Information Start: 09/21/23 17:54 Freq: Status: Active Protocol: Document 10/12/23 08:59 NM (Rec: 10/12/23 09:50 NM [id number]) Out-Patient Physical Therapy Visit Information Visit Information Visit Type Treatment Note Visit Note KX after 19 visits Ors Visit Start Time 09:00 Visit Stop Time 09:45 Visit Number 2 Evaluation Information Evaluation Date 10/10/23 Precautions Precautions pacemaker, Afib; hx high blood pressure; fall risk PT-OP-B Current Condition Start: 09/21/23 17:54 Freq: Status: Active Protocol: Document 10/10/23 13:47 NM (Rec: 10/10/23 15:09 NM [id number]) Current Condition History of Current Condition Onset Date DOS 09/29/23; chronic knee pain Current Complaints pain, limited mobility History of Current Condition Pt presents with R knee pain s /p partial TKA on 09/29/23. Dr. Still performed the surgery. States medial portion of knee was replaced. Pt is using spc in R hand. He had spinal surgery last year (July 2022), fusion of 3 vertebrae. He continues to have pain in his spine and neural symptoms ( reports tingling) in R thigh to R toes, but states that he no longer has spinal precautions. He did have PT following the surgery, but states it was minimal and not helpful. He had L TKA 2015 with good results. He has follow up with Dr. Still on Tuesday, 10/12. Prior to surgery , pt was using his spc ( baseline), primarily for balance. He is also using a 4WW at house (ground floor), uses spc outside (easier due to car). Pt lives with his , Mariann, who helped provide hx. They live in a house with an elevator, with 20 stairs (rails- B); however, pt does not use the stairs. Pt reports that his knee has been hurting since at least 1 year pre-op, before his back started to hurt. Pt had a cortisone shot prior to surgery. Pt had a fall back in January 2022, which is what originally injured his back. No falls since surgery. Pt has PMH of Afib, pacemaker. Pt reports sciatica in his RLE- thigh. Wearing compression stockings Prior Treatments and Tests previous lumbar fusion L3-L5 in 07/2022 Treatment Goals Patient/Caregiver Goals to get better again, to reduce pain, improve mobility Prior Functional Status Baseline Function- ADL's Independent Baseline Function- Mobility Independent Baseline Function- Gait ambulation around [place] Baseline Function- Recreation/Hobbies bicycling (stationary), hiking Current Functional Impairments (Reported) Functional Limitations- ADL's no difficulty with dressing walk in shower w/ grab bars, reports no difficulty Functional Limitations- Mobility/Gait currently unable to ambulate around the block WB Functional Limitations- Other pt reports pain with transfers to/from toilet- back and knee PT-OP-C Subjective Start: 09/21/23 17:54 Freq: Status: Active Protocol: Document 10/12/23 08:59 NM (Rec: 10/12/23 09:50 NM [id number]) OP-PT Subjective Patient Comments Patient Comments Pt reports 5/10 R knee pain. States just took an oxycodone prior to leaving for PT. Pt also reports that they have a production trainer coming to their house every am to lead in exercise; he has also has been doing exercises from surgeon. Mariann not present until end of session; states that the corporate sales trainer is only doing pt's current HEP with pt instead of usual exercises since post-op; also requesting PT remind pt to use spc in L hand instead of R hand. Pt reports that spc use in R hand makes him have better balance even though leaning more on R leg, which hurts. Has 2 week post op appt tomorrow PT-OP-E Functional Tests Start: 10/10/23 15:18 Freq: Status: Active Protocol: Document 10/10/23 13:47 NM (Rec: 10/10/23 15:19 NM [id number]) Functional Tests 2 Minute Walk Test Distance 148 ft Device Used spc Comments fatigues, demos difficulty w/ sequencing PT-OP-F Manual Assessment Start: 09/21/23 17:54 Freq: Status: Active Protocol: Document 10/10/23 13:47 NM (Rec: 10/10/23 15:09 NM [id number]) Manual Assessments Soft Tissue Assessment Soft Tissue Mobility Assessment Restrictions of R hamstring and quad limiting ROM, decreased heel cord length B Joint Mobility Assessment Joint Mobility Assessment Empty end feel with PROM to pt tolerance PT-OP-G Mobility & Gait Start: 09/21/23 17:54 Freq: Status: Active Protocol: Document 10/10/23 13:47 NM (Rec: 10/10/23 15:09 NM [id number]) OP Mobility Evaluation Bed Mobility Rolling IND Supine to and from Sit IND; demos slight SLR to move RLE on/off table without assist Transfers Sit to Stand close SBA with BUE on chair or 1 UE on spc OP Gait Assessment Gait Gait Assistance Required: Standby Assistance,Contact Guard Assist Distance (Feet) 150 Assistive Devices Assistive Device Gait Belt,Straight Cane Gait Deviations General Gait Pattern Antalgic,Decreased Stride Length,Decreased Feet Clearance Factors Limiting Gait Function Factors Limiting Gait Function Decreased Activity Tolerance, Decreased Sensation,Decreased Strength,Limited Range of Motion,Pain,Poor Balance Comments Gait Comments Demos slight hip ER with RLE, decreased foot clearance and TKE in stance, limited R hip/ knee flexion in swing. Shuffles as fatigues and demos several instances of LOB with CGA to steady as distance increases and fatigues. Pt used to spc in R hand previously PT-OP-H Neuro Start: 10/10/23 15:10 Freq: Status: Active Protocol: Document 10/10/23 13:47 NM (Rec: 10/10/23 15:14 NM [id number]) Sensation Evaluation Comments Summary Comments BLE equally intact to light touch sensation PT-OP-J Posture/Palpation/Skin Start: 10/10/23 15:10 Freq: Status: Active Protocol: Document 10/10/23 13:47 NM (Rec: 10/10/23 15:14 NM [id number]) Posture Evaluation Position Standing Head/C-Spine Posture Forward Head Shoulder Posture (L) Rounded,(R) Rounded Arm Posture (L) Externally Rotated,(R) Externally Rotated Pelvis Posture Anteriorly Tilted Weight Distribution Weight Shifted Left Hip Posture (R) Externally Rotated Knee Posture (L) Genu Valgus,(R) Genu Valgus Palpation Assessment Location R knee Palpation Findings Soft Tissue Tightness Palpation Details Tenderness along medial knee, patella Increased edema at knee > ankle Skin Assessment Circumference Measurement R knee Location measured at patella Measurement (Centimeters) 43 Comments L knee: 40 cm R ankle Location figure 8 Measurement (Centimeters) 54 Comments L ankle: 51.5 cm Incisional Assessment Incision Appearance/Comments Incision is covered by bandage , which is clean, dry, and intact. No signs or symptoms of DVT or infection Other Assessments Skin Assessment Comments RLE is equal temperature and color PT-OP-K Range of Motion Start: 09/21/23 17:54 Freq: Status: Active Protocol: Document 10/10/23 13:47 NM (Rec: 10/10/23 15:09 NM [id number]) Knee Goniometric Range of Motion Knee Right Flexion Active (degrees) 112 Extension Active (degrees) 10 Comments 5 deg ext lacking w/ quad set Left Flexion Active (degrees) 122 Extension Active (degrees) 1 PT-OP-M Strength Start: 09/21/23 17:54 Freq: Status: Active Protocol: Document 10/10/23 13:47 NM (Rec: 10/10/23 15:09 NM [id number]) Hip Strength Hip Manual Muscle Testing Right Flexion (L2) 4- Good- Extension (S1) 4- Good- Abduction 4- Good- Adduction 4 Good Internal Rotation 4 Good Comments tested in sitting due to time Left Flexion (L2) 4- Good- Extension (S1) 4 Good Abduction 4- Good- Adduction 4 Good Comments tested in sitting due to time Knee Strength Knee Manual Muscle Testing Right Flexion (S2) 3 Fair Extension (L3) 3 Fair Comments Mild pain with extension against gravity Left Flexion (S2) 4 Good Extension (L3) 4 Good Ankle/Foot Strength Ankle and Foot Manual Muscle Testing Right Dorsiflexion (L4) 4 Good Plantarflexion (S1) 4 Good Comments tested in sitting Left Dorsiflexion (L4) 4 Good Plantarflexion (S1) 4 Good Comments tested in sitting PT-OP-Q Treatments Start: 09/21/23 17:54 Freq: Status: Active Protocol: Document 10/12/23 08:59 NM (Rec: 10/12/23 09:50 NM [id number]) Therapeutic Exercises Supine Exercises SLR Supine Exercise Name trialed in PT Side right Reps/Minutes 2 Comments cues for quad set; demos extensor lag SAQ Supine Exercise Name HEP Side right Resistance AROM Equipment Used foam roller Reps/Minutes 2x10 w/ 3 Comments lacking TKE; good quad activation knee extension stretch Supine Exercise Name HEP Side right Equipment Used towel roll under ankle for passive stretch Reps/Minutes 2 min ankle pumps Supine Exercise Name HEP Side right Equipment Used ankle on towel Reps/Minutes 30 Comments following manual treatment Sitting Exercises quad set Sitting Exercise Name supine today; HEP review Side right Resistance AROM Equipment Used long sitting w/ towel roll under knee Reps/Minutes 10x5 Comments good quad contract with heel pop; cued submaximal to pain mgmt; -5deg heel slides Sitting Exercise Name HEP review Side right Resistance AROM Equipment Used long sitting Reps/Minutes 2x10 Comments cued to remain w/i pain free range, 90 deg flex per current restriction Standing Exercises side steps Side bilateral Resistance AROM Equipment Used B hand support on plinth Reps/Minutes 2 minutes Comments cued neutral foot placement squat Standing Exercise Name mini-squat Side bilateral Equipment Used hand support on elevated plinth, chair behind for support Reps/Minutes 2x5 Comments cued for hip hinge w/ knee flex, upright trunk; for knee flex Gait Training Gait Activity spc Description brief review end of session Device Used spc Level of Assistance close SBA with moderate cueing Surface stable Distance/Duration 25 ft Treatment Focus spc placement, sequencing WB Comments Cueing for spc placement closer to body and flat on ground; trialed 2-3 pt pattern with pt successful at end with spc in L hand and advancing with RLE. Pt advances spc only after taking several steps with BLE, pain on RLE w/ WB. Demos step through but not fluid with stepping Manual Therapy Treatment Consent Patient gave verbal consent for manual Yes treatment Soft Tissue Mobilization R knee Body Location swelling management, HS, quad, adductors Mobilization Type Rolling,Other Intensity/Depth Superficial Body Position Hooklying Comments Superficial distal > proximal from ankle > thigh for swelling management, avoiding healing incision (still covered by bandage) Increased restrictions of R hamstrings. Performed prior to exercise, monitored throughout for discomfort or pain Neuro Re-Education Treatment Balance Activities TUG Details post-op baseline Equipment spc, gait belt Reps/Duration 16.7 sec PT-OP-T Assessment and Plan Start: 09/21/23 17:54 Freq: Status: Active Protocol: Document 10/12/23 08:59 NM (Rec: 10/12/23 09:50 NM [id number]) Physical Therapy Assessment Goals Four Impairment STS Short Term Goal (STG) Pt will be able to perform at least 10 STS to LRAD and no increase in R knee pain with transfer in order to demonstrate improved BLE strength for bathroom transfers STG Duration 4 weeks Penitentiary Goal (LTG) Pt will be able to perform 5x STS within age-related norms in order to demonstrate improved BLE strength for transfers and gait LTG Duration 12 weeks Three Impairment 2 MWT distance 148 ft with spc Short Term Goal (STG) Pt will normalize gait mechanics with LRAD and no pain in R knee with WB in order for pt to return to daily walks around his neighborhood STG Duration 4 weeks Penitentiary Goal (LTG) Pt will be able to complete 6 MWT with LRAD and no increase in R knee pain with WB in order for pt to return to daily ambulation within community gant LTG Duration 12 weeks Two Impairment strength R knee 3/5 Short Term Goal (STG) Pt will improve R knee flexion and extension strength to at least 4-/5 in order to demonstrate increased strength for gait, transfers STG Duration 8 weeks Penitentiary Goal (LTG) Pt will improve R knee flexion and extension strength to at least 4+/5 in order to demonstrate increased strength for gait, transfers LTG Duration 12 weeks One Impairment R knee AROM lacking 10 - 112 deg Short Term Goal (STG) Pt will improve R knee AROM to at least lacking 5 deg - 118 deg in order to demonstrate improved mobility for transfers, gait, and stairs STG Duration 6 weeks Penitentiary Goal (LTG) Pt will increase R knee AROM to at least 1 deg - 120 deg in order to demonstrate improved mobility for transfers, gait, and stairs LTG Duration 12 weeks Assessment Summary Assessment Pt tolerated session well. Currently 1 week 6 days post- op s/p R partial knee arthroplasty. Pt is compliant with HEP. Continues to have good quad activation with quad sets but requires multiple cues to remain submaximal with minimal discomfort. Lacks terminal extension at end range with SAQ. Pt able to lift RLE to transfer on/off bed but demos increased extensor lag when SLR trialed. Currently 90 deg R knee flexion AROM and lacking 5 deg of R knee extension. Educated again on use of spc in L hand during gait temporarily for pain reduction. Pt continues to exhibit taking several steps before advancing spc despite cueing for 2-3 pt pattern with B knee flexion. TUG score 16.7 sec with spc. Pt would benefit from skilled PT for R knee ROM and strengthening in order to improve functional mobility for ADLs, transfers, and gait. Physical Therapy Plan Frequency and Duration Frequency of Treatment 1-2x/wk Duration of treatment (weeks) 12 Plan of Care Start Date 10/10/23 Plan of Care End Date 01/06/24 Therapeutic Interventions Therapeutic Interventions Balance Training,Gait Training ,Home Exercise Program,Joint Mobilizations,Manual Therapy, Neuromuscular Re-education, Orthotic/Prosthetic Management ,Patient/Caregiver Education, Self-Care/Home Management, Sensory Integration,Soft Tissue Mobilization,Taping, Therapeutic Activities, Therapeutic Exercises Modalities Cold Pack/Ice Massage,Hot Packs,Vasopneumatic Devices Other Therapeutic Interventions no e-stim due to pacemaker Next Visit Focus/Plan Next Note Type Treatment Note Next Visit Plan Assess tolerance to HEP and ask about 2 week post-op appt. Review gait with spc L hand w / emphasis on 2-3 pt pattern vs multi-steps (baseline R hand w/ spc) STS, quad set > SAQ>LAQ, retrial SLR depending on ext lag; knee flex via heel slides , minisquat; hip abduction ( seated, side steps, sidelying) trial stepper or bike for knee flex Manual treatment to reduce swelling, improve tissue length and promote ext > flex ROM POC: normalize gait mechanics with spc, balance, transfers, R knee ROM, functional strength
--- NOTE | 2023-10-19 14:33 | PT.OTN ---
Current Diagnoses Unilateral primary osteoarthritis, right knee (10/19/23) Stiffness of right knee, not elsewhere classified (10/19/23) Other lack of coordination (10/19/23) Weakness (10/19/23) Encounter for other preprocedural examination (10/19/23) Physical Therapy Treatment Note PT-OP-A Visit Information Start: 09/21/23 17:54 Freq: Status: Active Protocol: Document 10/19/23 13:01 LR (Rec: 10/19/23 14:32 [facility] [id number]) Out-Patient Physical Therapy Visit Information Visit Information Visit Type Treatment Note Visit Note KX after 19 visits Ors Visit Start Time 13:53 Visit Stop Time 14:31 Visit Number 3 Number of FELTMAKER AND WEIGHER Visits 0 PT-OP-B Current Condition Start: 09/21/23 17:54 Freq: Status: Active Protocol: Document 10/10/23 13:47 NM (Rec: 10/10/23 15:09 NM [id number]) Current Condition History of Current Condition Onset Date DOS 09/29/23; chronic knee pain Current Complaints pain, limited mobility History of Current Condition Pt presents with R knee pain s /p partial TKA on 09/29/23. Dr. Still performed the surgery. States medial portion of knee was replaced. Pt is using spc in R hand. He had spinal surgery last year (July 2022), fusion of 3 vertebrae. He continues to have pain in his spine and neural symptoms ( reports tingling) in R thigh to R toes, but states that he no longer has spinal precautions. He did have PT following the surgery, but states it was minimal and not helpful. He had L TKA 2015 with good results. He has follow up with Dr. Still on Tuesday, 10/12. Prior to surgery , pt was using his spc ( baseline), primarily for balance. He is also using a 4WW at house (ground floor), uses spc outside (easier due to car). Pt lives with his , Mariann, who helped provide hx. They live in a house with an elevator, with 20 stairs (rails- B); however, pt does not use the stairs. Pt reports that his knee has been hurting since at least 1 year pre-op, before his back started to hurt. Pt had a cortisone shot prior to surgery. Pt had a fall back in January 2022, which is what originally injured his back. No falls since surgery. Pt has PMH of Afib, pacemaker. Pt reports sciatica in his RLE- thigh. Wearing compression stockings Prior Treatments and Tests previous lumbar fusion L3-L5 in 07/2022 Treatment Goals Patient/Caregiver Goals to get better again, to reduce pain, improve mobility Prior Functional Status Baseline Function- ADL's Independent Baseline Function- Mobility Independent Baseline Function- Gait ambulation around [place] Baseline Function- Recreation/Hobbies bicycling (stationary), hiking Current Functional Impairments (Reported) Functional Limitations- ADL's no difficulty with dressing walk in shower w/ grab bars, reports no difficulty Functional Limitations- Mobility/Gait currently unable to ambulate around the block WB Functional Limitations- Other pt reports pain with transfers to/from toilet- back and knee PT-OP-C Subjective Start: 09/21/23 17:54 Freq: Status: Active Protocol: Document 10/19/23 13:01 [facility] (Rec: 10/19/23 14:32 [facility] [id number]) OP-PT Subjective Patient Comments Patient Comments pt feels like exercises help his knee. 2 week follow up went well. No concerns PT-OP-E Functional Tests Start: 10/10/23 15:18 Freq: Status: Active Protocol: Document 10/10/23 13:47 NM (Rec: 10/10/23 15:19 NM [id number]) Functional Tests 2 Minute Walk Test Distance 148 ft Device Used spc Comments fatigues, demos difficulty w/ sequencing PT-OP-F Manual Assessment Start: 09/21/23 17:54 Freq: Status: Active Protocol: Document 10/10/23 13:47 NM (Rec: 10/10/23 15:09 NM [id number]) Manual Assessments Soft Tissue Assessment Soft Tissue Mobility Assessment Restrictions of R hamstring and quad limiting ROM, decreased heel cord length B Joint Mobility Assessment Joint Mobility Assessment Empty end feel with PROM to pt tolerance PT-OP-G Mobility & Gait Start: 09/21/23 17:54 Freq: Status: Active Protocol: Document 10/10/23 13:47 NM (Rec: 10/10/23 15:09 NM [id number]) OP Mobility Evaluation Bed Mobility Rolling IND Supine to and from Sit IND; demos slight SLR to move RLE on/off table without assist Transfers Sit to Stand close SBA with BUE on chair or 1 UE on spc OP Gait Assessment Gait Gait Assistance Required: Standby Assistance,Contact Guard Assist Distance (Feet) 150 Assistive Devices Assistive Device Gait Belt,Straight Cane Gait Deviations General Gait Pattern Antalgic,Decreased Stride Length,Decreased Feet Clearance Factors Limiting Gait Function Factors Limiting Gait Function Decreased Activity Tolerance, Decreased Sensation,Decreased Strength,Limited Range of Motion,Pain,Poor Balance Comments Gait Comments Demos slight hip ER with RLE, decreased foot clearance and TKE in stance, limited R hip/ knee flexion in swing. Shuffles as fatigues and demos several instances of LOB with CGA to steady as distance increases and fatigues. Pt used to spc in R hand previously PT-OP-H Neuro Start: 10/10/23 15:10 Freq: Status: Active Protocol: Document 10/10/23 13:47 NM (Rec: 10/10/23 15:14 NM [id number]) Sensation Evaluation Comments Summary Comments BLE equally intact to light touch sensation PT-OP-J Posture/Palpation/Skin Start: 10/10/23 15:10 Freq: Status: Active Protocol: Document 10/10/23 13:47 NM (Rec: 10/10/23 15:14 NM [id number]) Posture Evaluation Position Standing Head/C-Spine Posture Forward Head Shoulder Posture (L) Rounded,(R) Rounded Arm Posture (L) Externally Rotated,(R) Externally Rotated Pelvis Posture Anteriorly Tilted Weight Distribution Weight Shifted Left Hip Posture (R) Externally Rotated Knee Posture (L) Genu Valgus,(R) Genu Valgus Palpation Assessment Location R knee Palpation Findings Soft Tissue Tightness Palpation Details Tenderness along medial knee, patella Increased edema at knee > ankle Skin Assessment Circumference Measurement R knee Location measured at patella Measurement (Centimeters) 43 Comments L knee: 40 cm R ankle Location figure 8 Measurement (Centimeters) 54 Comments L ankle: 51.5 cm Incisional Assessment Incision Appearance/Comments Incision is covered by bandage , which is clean, dry, and intact. No signs or symptoms of DVT or infection Other Assessments Skin Assessment Comments RLE is equal temperature and color PT-OP-K Range of Motion Start: 09/21/23 17:54 Freq: Status: Active Protocol: Document 10/10/23 13:47 NM (Rec: 10/10/23 15:09 NM [id number]) Knee Goniometric Range of Motion Knee Right Flexion Active (degrees) 112 Extension Active (degrees) 10 Comments 5 deg ext lacking w/ quad set Left Flexion Active (degrees) 122 Extension Active (degrees) 1 PT-OP-M Strength Start: 09/21/23 17:54 Freq: Status: Active Protocol: Document 10/10/23 13:47 NM (Rec: 10/10/23 15:09 NM [id number]) Hip Strength Hip Manual Muscle Testing Right Flexion (L2) 4- Good- Extension (S1) 4- Good- Abduction 4- Good- Adduction 4 Good Internal Rotation 4 Good Comments tested in sitting due to time Left Flexion (L2) 4- Good- Extension (S1) 4 Good Abduction 4- Good- Adduction 4 Good Comments tested in sitting due to time Knee Strength Knee Manual Muscle Testing Right Flexion (S2) 3 Fair Extension (L3) 3 Fair Comments Mild pain with extension against gravity Left Flexion (S2) 4 Good Extension (L3) 4 Good Ankle/Foot Strength Ankle and Foot Manual Muscle Testing Right Dorsiflexion (L4) 4 Good Plantarflexion (S1) 4 Good Comments tested in sitting Left Dorsiflexion (L4) 4 Good Plantarflexion (S1) 4 Good Comments tested in sitting PT-OP-Q Treatments Start: 09/21/23 17:54 Freq: Status: Active Protocol: Document 10/19/23 13:01 [facility] (Rec: 10/19/23 14:32 [facility] [id number]) Cardio Equipment Bicycle (Upright) Duration (Minutes) 5 Resistance 5 Seat Position 6 Therapeutic Exercises Supine Exercises quad set Side right Reps/Minutes 5 secx 6 SLR Supine Exercise Name trialed in PT Side right Reps/Minutes 5 Comments lag still but imporved w/cues for quad set and smaller range Sitting Exercises heel slides Sitting Exercise Name seated chair Side right Resistance AROM Reps/Minutes 10 sec x5 Comments w/scoot fwd stretch Standing Exercises backwards walk Side bilateral Equipment Used rail prn Reps/Minutes 20ftx2 Comments max cues for lg steps TKE Side right Equipment Used L2 Reps/Minutes 15 Comments cues for foot on ground side steps Side bilateral Resistance AROM Reps/Minutes 20ftx2 ea Comments cued neutral foot placement & posture squat Standing Exercise Name mini-squat Side bilateral Equipment Used hand support on bar Reps/Minutes 2x5 Comments cued for hip hinge w/ knee flex, upright trunk; for knee flex Manual Therapy Treatment Soft Tissue Mobilization R knee Body Location R HS & calf & ITB Mobilization Type Rolling Intensity/Depth Moderate PT-OP-T Assessment and Plan Start: 09/21/23 17:54 Freq: Status: Active Protocol: Document 10/19/23 13:01 [facility] (Rec: 10/19/23 14:32 [facility] [id number]) Physical Therapy Assessment Goals Four Impairment STS Short Term Goal (STG) Pt will be able to perform at least 10 STS to LRAD and no increase in R knee pain with transfer in order to demonstrate improved BLE strength for bathroom transfers STG Duration 4 weeks Nursing Home Goal (LTG) Pt will be able to perform 5x STS within age-related norms in order to demonstrate improved BLE strength for transfers and gait LTG Duration 12 weeks Three Impairment 2 MWT distance 148 ft with spc Short Term Goal (STG) Pt will normalize gait mechanics with LRAD and no pain in R knee with WB in order for pt to return to daily walks around his neighborhood STG Duration 4 weeks [employer] Goal (LTG) Pt will be able to complete 6 MWT with LRAD and no increase in R knee pain with WB in order for pt to return to daily ambulation within community gant LTG Duration 12 weeks Two Impairment strength R knee 3/5 Short Term Goal (STG) Pt will improve R knee flexion and extension strength to at least 4-/5 in order to demonstrate increased strength for gait, transfers STG Duration 8 weeks Nursing Home Goal (LTG) Pt will improve R knee flexion and extension strength to at least 4+/5 in order to demonstrate increased strength for gait, transfers LTG Duration 12 weeks One Impairment R knee AROM lacking 10 - 112 deg Short Term Goal (STG) Pt will improve R knee AROM to at least lacking 5 deg - 118 deg in order to demonstrate improved mobility for transfers, gait, and stairs STG Duration 6 weeks Nursing Home Goal (LTG) Pt will increase R knee AROM to at least 1 deg - 120 deg in order to demonstrate improved mobility for transfers, gait, and stairs LTG Duration 12 weeks Assessment Summary Assessment Pt did well with exercises with cues throughout. He required a lot of cues for backwards and lat stepping for step length and posture. Physical Therapy Plan Frequency and Duration Frequency of Treatment 1-2x/wk Duration of treatment (weeks) 12 Plan of Care Start Date 10/10/23 Plan of Care End Date 01/06/24 Next Visit Focus/Plan Next Note Type Treatment Note Next Visit Plan cont to work on gait pattern and TKE
--- NOTE | 2023-10-24 13:52 | PT.OTN ---
Current Diagnoses Unilateral primary osteoarthritis, right knee (10/24/23) Stiffness of right knee, not elsewhere classified (10/24/23) Other lack of coordination (10/24/23) Weakness (10/24/23) Encounter for other preprocedural examination (10/24/23) Physical Therapy Treatment Note PT-OP-A Visit Information Start: 09/21/23 17:54 Freq: Status: Active Protocol: Document 10/24/23 13:02 SP (Rec: 10/24/23 13:55 SP [id number]) Out-Patient Physical Therapy Visit Information Visit Information Visit Type Treatment Note Visit Note KX after 19 visits Ors attends partial treatment . Visit Start Time 13:02 Visit Stop Time 13:52 Visit Number 4 Number of SIGNS SALES REPRESENTATIVE Visits 1 Evaluation Information Evaluation Date 10/10/23 Precautions Precautions pacemaker, Afib; hx high blood pressure; fall risk -CHINIK L worse than R (has hearing aids) PT-OP-B Current Condition Start: 09/21/23 17:54 Freq: Status: Active Protocol: Document 10/10/23 13:47 NM (Rec: 10/10/23 15:09 NM [id number]) Current Condition History of Current Condition Onset Date DOS 09/29/23; chronic knee pain Current Complaints pain, limited mobility History of Current Condition Pt presents with R knee pain s /p partial TKA on 09/29/23. Dr. Still performed the surgery. States medial portion of knee was replaced. Pt is using spc in R hand. He had spinal surgery last year (July 2022), fusion of 3 vertebrae. He continues to have pain in his spine and neural symptoms ( reports tingling) in R thigh to R toes, but states that he no longer has spinal precautions. He did have PT following the surgery, but states it was minimal and not helpful. He had L TKA 2015 with good results. He has follow up with Dr. Still on Tuesday, 10/12. Prior to surgery , pt was using his spc ( baseline), primarily for balance. He is also using a 4WW at house (ground floor), uses spc outside (easier due to car). Pt lives with his , Mariann, who helped provide hx. They live in a house with an elevator, with 20 stairs (rails- B); however, pt does not use the stairs. Pt reports that his knee has been hurting since at least 1 year pre-op, before his back started to hurt. Pt had a cortisone shot prior to surgery. Pt had a fall back in January 2022, which is what originally injured his back. No falls since surgery. Pt has PMH of Afib, pacemaker. Pt reports sciatica in his RLE- thigh. Wearing compression stockings Prior Treatments and Tests previous lumbar fusion L3-L5 in 07/2022 Treatment Goals Patient/Caregiver Goals to get better again, to reduce pain, improve mobility Prior Functional Status Baseline Function- ADL's Independent Baseline Function- Mobility Independent Baseline Function- Gait ambulation around [place] Baseline Function- Recreation/Hobbies bicycling (stationary), hiking Current Functional Impairments (Reported) Functional Limitations- ADL's no difficulty with dressing walk in shower w/ grab bars, reports no difficulty Functional Limitations- Mobility/Gait currently unable to ambulate around the block WB Functional Limitations- Other pt reports pain with transfers to/from toilet- back and knee PT-OP-C Subjective Start: 09/21/23 17:54 Freq: Status: Active Protocol: Document 10/24/23 13:02 SP (Rec: 10/24/23 13:55 SP [id number]) OP-PT Subjective Patient Comments Patient Comments Pt uses 1 trek pole for gait in RUE. He reports misplaced his hearing aids so need stand on R (L worse). He reports always feels better after last tx. Pt and asked to review HEP HOs brought received from doc and previous PT [place], seem get easier and should he still do? PT-OP-E Functional Tests Start: 10/10/23 15:18 Freq: Status: Active Protocol: Document 10/10/23 13:47 NM (Rec: 10/10/23 15:19 NM [id number]) Functional Tests 2 Minute Walk Test Distance 148 ft Device Used spc Comments fatigues, demos difficulty w/ sequencing PT-OP-F Manual Assessment Start: 09/21/23 17:54 Freq: Status: Active Protocol: Document 10/10/23 13:47 NM (Rec: 10/10/23 15:09 NM [id number]) Manual Assessments Soft Tissue Assessment Soft Tissue Mobility Assessment Restrictions of R hamstring and quad limiting ROM, decreased heel cord length B Joint Mobility Assessment Joint Mobility Assessment Empty end feel with PROM to pt tolerance PT-OP-G Mobility & Gait Start: 09/21/23 17:54 Freq: Status: Active Protocol: Document 10/10/23 13:47 NM (Rec: 10/10/23 15:09 NM [id number]) OP Mobility Evaluation Bed Mobility Rolling IND Supine to and from Sit IND; demos slight SLR to move RLE on/off table without assist Transfers Sit to Stand close SBA with BUE on chair or 1 UE on spc OP Gait Assessment Gait Gait Assistance Required: Standby Assistance,Contact Guard Assist Distance (Feet) 150 Assistive Devices Assistive Device Gait Belt,Straight Cane Gait Deviations General Gait Pattern Antalgic,Decreased Stride Length,Decreased Feet Clearance Factors Limiting Gait Function Factors Limiting Gait Function Decreased Activity Tolerance, Decreased Sensation,Decreased Strength,Limited Range of Motion,Pain,Poor Balance Comments Gait Comments Demos slight hip ER with RLE, decreased foot clearance and TKE in stance, limited R hip/ knee flexion in swing. Shuffles as fatigues and demos several instances of LOB with CGA to steady as distance increases and fatigues. Pt used to spc in R hand previously PT-OP-H Neuro Start: 10/10/23 15:10 Freq: Status: Active Protocol: Document 10/10/23 13:47 NM (Rec: 10/10/23 15:14 NM [id number]) Sensation Evaluation Comments Summary Comments BLE equally intact to light touch sensation PT-OP-J Posture/Palpation/Skin Start: 10/10/23 15:10 Freq: Status: Active Protocol: Document 10/10/23 13:47 NM (Rec: 10/10/23 15:14 NM [id number]) Posture Evaluation Position Standing Head/C-Spine Posture Forward Head Shoulder Posture (L) Rounded,(R) Rounded Arm Posture (L) Externally Rotated,(R) Externally Rotated Pelvis Posture Anteriorly Tilted Weight Distribution Weight Shifted Left Hip Posture (R) Externally Rotated Knee Posture (L) Genu Valgus,(R) Genu Valgus Palpation Assessment Location R knee Palpation Findings Soft Tissue Tightness Palpation Details Tenderness along medial knee, patella Increased edema at knee > ankle Skin Assessment Circumference Measurement R knee Location measured at patella Measurement (Centimeters) 43 Comments L knee: 40 cm R ankle Location figure 8 Measurement (Centimeters) 54 Comments L ankle: 51.5 cm Incisional Assessment Incision Appearance/Comments Incision is covered by bandage , which is clean, dry, and intact. No signs or symptoms of DVT or infection Other Assessments Skin Assessment Comments RLE is equal temperature and color PT-OP-K Range of Motion Start: 09/21/23 17:54 Freq: Status: Active Protocol: Document 10/24/23 13:02 SP (Rec: 10/24/23 13:55 SP [id number]) Knee Goniometric Range of Motion Knee Right Knee ROM WFL No Patient Position Supine Flexion Active (degrees) 123 Flexion Passive (degrees) 130 Extension Active (degrees) 0 Comments 0-123 AROM R knee supine: 1-130 PROM R knee supine 1-2 deg ext with SLR, 0 deg lag QS PT-OP-M Strength Start: 09/21/23 17:54 Freq: Status: Active Protocol: Document 10/10/23 13:47 NM (Rec: 10/10/23 15:09 NM [id number]) Hip Strength Hip Manual Muscle Testing Right Flexion (L2) 4- Good- Extension (S1) 4- Good- Abduction 4- Good- Adduction 4 Good Internal Rotation 4 Good Comments tested in sitting due to time Left Flexion (L2) 4- Good- Extension (S1) 4 Good Abduction 4- Good- Adduction 4 Good Comments tested in sitting due to time Knee Strength Knee Manual Muscle Testing Right Flexion (S2) 3 Fair Extension (L3) 3 Fair Comments Mild pain with extension against gravity Left Flexion (S2) 4 Good Extension (L3) 4 Good Ankle/Foot Strength Ankle and Foot Manual Muscle Testing Right Dorsiflexion (L4) 4 Good Plantarflexion (S1) 4 Good Comments tested in sitting Left Dorsiflexion (L4) 4 Good Plantarflexion (S1) 4 Good Comments tested in sitting PT-OP-Q Treatments Start: 09/21/23 17:54 Freq: Status: Active Protocol: Document 10/24/23 13:02 SP (Rec: 10/24/23 13:55 SP [id number]) Cardio Equipment Recumbent Bicycle Duration (Minutes) 8 Resistance 4 Seat Position in 7 (2 min)> Therapeutic Exercises Supine Exercises quad set Side right Reps/Minutes 5 sec x 5 Comments pre SLR- good contraction- not need keep up with for HEP SLR Supine Exercise Name added to HEP- copied doc HO Side right Equipment Used opp knee bent Reps/Minutes 8 reps Comments no lag first 3 rep with cues for keep knee straight, 2 deg lag by SAQ Supine Exercise Name DC easy knee extension stretch Supine Exercise Name not need to do anymore- 0 deg ext Side right ankle pumps Supine Exercise Name discussed can continue Sitting Exercises STS Sitting Exercise Name added to HEP Equipment Used mesh chair arms front vs across chest Reps/Minutes x10 Comments cued wt shift fwd and slow descend hip hinge sit- improved performance Standing Exercises TKE Standing Exercise Name added to HEp /c HO Side right Resistance L2 behind lowerback thigh Equipment Used contact chair Reps/Minutes 2 SH x15 Comments cues for foot on ground, body still side steps Standing Exercise Name fwd/bwd/side step (in PT) Side bilateral Resistance AROM (add TB next tx) Equipment Used near but not need rail Reps/Minutes 20ftx3 ea Comments cued neutral foot placement & posture squat Standing Exercise Name mini-squat- added toHEP /c HO Side bilateral Equipment Used hand support on bar Reps/Minutes 2x10 Comments cued for hip hinge w/ knee flex, upright trunk; for knee flex Self-Care/Home Management Treatment Education Patient Education Safety Caregiver Education Demonstration proper performance of HEP to so can support cues as needed to pt at home during HEP, verbalized understanding. Other Education Encouraged use of recumbent bike home start 10 min and slowly progress. Discussed wearing fullly secure shoes when active in PT and out for walks, Birkenstocks slide and can be a trip [place] at this time. PT-OP-T Assessment and Plan Start: 09/21/23 17:54 Freq: Status: Active Protocol: Document 10/24/23 13:02 SP (Rec: 10/24/23 13:55 SP [id number]) Physical Therapy Assessment Goals Four Impairment STS Short Term Goal (STG) Pt will be able to perform at least 10 STS to LRAD and no increase in R knee pain with transfer in order to demonstrate improved BLE strength for bathroom transfers STG Duration 4 weeks Cloth Mender Goal (LTG) Pt will be able to perform 5x STS within age-related norms in order to demonstrate improved BLE strength for transfers and gait LTG Duration 12 weeks Three Impairment 2 MWT distance 148 ft with spc Short Term Goal (STG) Pt will normalize gait mechanics with LRAD and no pain in R knee with WB in order for pt to return to daily walks around his neighborhood STG Duration 4 weeks Fpc Goal (LTG) Pt will be able to complete 6 MWT with LRAD and no increase in R knee pain with WB in order for pt to return to daily ambulation within community gant LTG Duration 12 weeks Two Impairment strength R knee 3/5 Short Term Goal (STG) Pt will improve R knee flexion and extension strength to at least 4-/5 in order to demonstrate increased strength for gait, transfers STG Duration 8 weeks Cloth Mender Goal (LTG) Pt will improve R knee flexion and extension strength to at least 4+/5 in order to demonstrate increased strength for gait, transfers LTG Duration 12 weeks One Impairment R knee AROM lacking 10 - 112 deg Short Term Goal (STG) Pt will improve R knee AROM to at least lacking 5 deg - 118 deg in order to demonstrate improved mobility for transfers, gait, and stairs STG Duration 6 weeks Fpc Goal (LTG) Pt will increase R knee AROM to at least 1 deg - 120 deg in order to demonstrate improved mobility for transfers, gait, and stairs LTG Duration 12 weeks Progress Towards Goals Progress Comments 0-123 AROM R knee supine 130 PROM R knee flexion supine Noted 1-2 deg ext lag with SLR , 0 deg lag QS Assessment Summary Assessment Pt making gains in AROM R knee 11 deg flexion and 10 deg extension since eval 10/09. Pt responded well to more active ther ex today. Tactile cues for TKE during standing and SLR no higher than opp knee. Physical Therapy Plan Frequency and Duration Frequency of Treatment 1-2x/wk Duration of treatment (weeks) 12 Plan of Care Start Date 10/10/23 Plan of Care End Date 01/06/24 Therapeutic Interventions Therapeutic Interventions Balance Training,Gait Training ,Home Exercise Program,Joint Mobilizations,Manual Therapy, Neuromuscular Re-education, Orthotic/Prosthetic Management ,Patient/Caregiver Education, Self-Care/Home Management, Sensory Integration,Soft Tissue Mobilization,Taping, Therapeutic Activities, Therapeutic Exercises Modalities Cold Pack/Ice Massage,Hot Packs,Vasopneumatic Devices Other Therapeutic Interventions no e-stim due to pacemaker Next Visit Focus/Plan Next Note Type Treatment Note Next Visit Plan cont to work on gait pattern / d trek pole and TKE HEP /c TB. Trial step ups & step taps for SLS
--- NOTE | 2023-10-27 11:31 | PT-OP ANOTE ---
Pt called and VM left re: no show and asked pt to call back to reschedule.
--- NOTE | 2023-10-27 12:26 | PT.OTN ---
Current Diagnoses Unilateral primary osteoarthritis, right knee (10/24/23) Stiffness of right knee, not elsewhere classified (10/24/23) Other lack of coordination (10/24/23) Weakness (10/24/23) Encounter for other preprocedural examination (10/24/23) Physical Therapy Treatment Note PT-OP-A Visit Information Start: 09/21/23 17:54 Freq: Status: Active Protocol: Document 10/27/23 11:20 LR (Rec: 10/27/23 12:25 [facility] [id number]) Out-Patient Physical Therapy Visit Information Visit Information Visit Type Treatment Note Visit Note KX after 19 visits Ors 5/10 Visit Start Time 11:32 Visit Stop Time 12:10 Visit Number 5 Number of [employer] SUPERVISOR Visits 0 PT-OP-B Current Condition Start: 09/21/23 17:54 Freq: Status: Active Protocol: Document 10/10/23 13:47 NM (Rec: 10/10/23 15:09 NM [id number]) Current Condition History of Current Condition Onset Date DOS 09/29/23; chronic knee pain Current Complaints pain, limited mobility History of Current Condition Pt presents with R knee pain s /p partial TKA on 09/29/23. Dr. Still performed the surgery. States medial portion of knee was replaced. Pt is using spc in R hand. He had spinal surgery last year (July 2022), fusion of 3 vertebrae. He continues to have pain in his spine and neural symptoms ( reports tingling) in R thigh to R toes, but states that he no longer has spinal precautions. He did have PT following the surgery, but states it was minimal and not helpful. He had L TKA 2015 with good results. He has follow up with Dr. Still on Tuesday, 10/12. Prior to surgery , pt was using his spc ( baseline), primarily for balance. He is also using a 4WW at house (ground floor), uses spc outside (easier due to car). Pt lives with his , Mariann, who helped provide hx. They live in a house with an elevator, with 20 stairs (rails- B); however, pt does not use the stairs. Pt reports that his knee has been hurting since at least 1 year pre-op, before his back started to hurt. Pt had a cortisone shot prior to surgery. Pt had a fall back in January 2022, which is what originally injured his back. No falls since surgery. Pt has PMH of Afib, pacemaker. Pt reports sciatica in his RLE- thigh. Wearing compression stockings Prior Treatments and Tests previous lumbar fusion L3-L5 in 07/2022 Treatment Goals Patient/Caregiver Goals to get better again, to reduce pain, improve mobility Prior Functional Status Baseline Function- ADL's Independent Baseline Function- Mobility Independent Baseline Function- Gait ambulation around [place] Baseline Function- Recreation/Hobbies bicycling (stationary), hiking Current Functional Impairments (Reported) Functional Limitations- ADL's no difficulty with dressing walk in shower w/ grab bars, reports no difficulty Functional Limitations- Mobility/Gait currently unable to ambulate around the block WB Functional Limitations- Other pt reports pain with transfers to/from toilet- back and knee PT-OP-C Subjective Start: 09/21/23 17:54 Freq: Status: Active Protocol: Document 10/27/23 11:20 [facility] (Rec: 10/27/23 12:25 [facility] [id number]) OP-PT Subjective Patient Comments Patient Comments Pt reprots has been doing walk around block 2x/day PT-OP-E Functional Tests Start: 10/10/23 15:18 Freq: Status: Active Protocol: Document 10/10/23 13:47 NM (Rec: 10/10/23 15:19 NM [id number]) Functional Tests 2 Minute Walk Test Distance 148 ft Device Used spc Comments fatigues, demos difficulty w/ sequencing PT-OP-F Manual Assessment Start: 09/21/23 17:54 Freq: Status: Active Protocol: Document 10/10/23 13:47 NM (Rec: 10/10/23 15:09 NM [id number]) Manual Assessments Soft Tissue Assessment Soft Tissue Mobility Assessment Restrictions of R hamstring and quad limiting ROM, decreased heel cord length B Joint Mobility Assessment Joint Mobility Assessment Empty end feel with PROM to pt tolerance PT-OP-G Mobility & Gait Start: 09/21/23 17:54 Freq: Status: Active Protocol: Document 10/10/23 13:47 NM (Rec: 10/10/23 15:09 NM [id number]) OP Mobility Evaluation Bed Mobility Rolling IND Supine to and from Sit IND; demos slight SLR to move RLE on/off table without assist Transfers Sit to Stand close SBA with BUE on chair or 1 UE on spc OP Gait Assessment Gait Gait Assistance Required: Standby Assistance,Contact Guard Assist Distance (Feet) 150 Assistive Devices Assistive Device Gait Belt,Straight Cane Gait Deviations General Gait Pattern Antalgic,Decreased Stride Length,Decreased Feet Clearance Factors Limiting Gait Function Factors Limiting Gait Function Decreased Activity Tolerance, Decreased Sensation,Decreased Strength,Limited Range of Motion,Pain,Poor Balance Comments Gait Comments Demos slight hip ER with RLE, decreased foot clearance and TKE in stance, limited R hip/ knee flexion in swing. Shuffles as fatigues and demos several instances of LOB with CGA to steady as distance increases and fatigues. Pt used to spc in R hand previously PT-OP-H Neuro Start: 10/10/23 15:10 Freq: Status: Active Protocol: Document 10/10/23 13:47 NM (Rec: 10/10/23 15:14 NM [id number]) Sensation Evaluation Comments Summary Comments BLE equally intact to light touch sensation PT-OP-J Posture/Palpation/Skin Start: 10/10/23 15:10 Freq: Status: Active Protocol: Document 10/10/23 13:47 NM (Rec: 10/10/23 15:14 NM [id number]) Posture Evaluation Position Standing Head/C-Spine Posture Forward Head Shoulder Posture (L) Rounded,(R) Rounded Arm Posture (L) Externally Rotated,(R) Externally Rotated Pelvis Posture Anteriorly Tilted Weight Distribution Weight Shifted Left Hip Posture (R) Externally Rotated Knee Posture (L) Genu Valgus,(R) Genu Valgus Palpation Assessment Location R knee Palpation Findings Soft Tissue Tightness Palpation Details Tenderness along medial knee, patella Increased edema at knee > ankle Skin Assessment Circumference Measurement R knee Location measured at patella Measurement (Centimeters) 43 Comments L knee: 40 cm R ankle Location figure 8 Measurement (Centimeters) 54 Comments L ankle: 51.5 cm Incisional Assessment Incision Appearance/Comments Incision is covered by bandage , which is clean, dry, and intact. No signs or symptoms of DVT or infection Other Assessments Skin Assessment Comments RLE is equal temperature and color PT-OP-K Range of Motion Start: 09/21/23 17:54 Freq: Status: Active Protocol: Document 10/24/23 13:02 SP (Rec: 10/24/23 13:55 SP [id number]) Knee Goniometric Range of Motion Knee Right Knee ROM WFL No Patient Position Supine Flexion Active (degrees) 123 Flexion Passive (degrees) 130 Extension Active (degrees) 0 Comments 0-123 AROM R knee supine: 1-130 PROM R knee supine 1-2 deg ext with SLR, 0 deg lag QS PT-OP-M Strength Start: 09/21/23 17:54 Freq: Status: Active Protocol: Document 10/10/23 13:47 NM (Rec: 10/10/23 15:09 NM [id number]) Hip Strength Hip Manual Muscle Testing Right Flexion (L2) 4- Good- Extension (S1) 4- Good- Abduction 4- Good- Adduction 4 Good Internal Rotation 4 Good Comments tested in sitting due to time Left Flexion (L2) 4- Good- Extension (S1) 4 Good Abduction 4- Good- Adduction 4 Good Comments tested in sitting due to time Knee Strength Knee Manual Muscle Testing Right Flexion (S2) 3 Fair Extension (L3) 3 Fair Comments Mild pain with extension against gravity Left Flexion (S2) 4 Good Extension (L3) 4 Good Ankle/Foot Strength Ankle and Foot Manual Muscle Testing Right Dorsiflexion (L4) 4 Good Plantarflexion (S1) 4 Good Comments tested in sitting Left Dorsiflexion (L4) 4 Good Plantarflexion (S1) 4 Good Comments tested in sitting PT-OP-Q Treatments Start: 09/21/23 17:54 Freq: Status: Active Protocol: Document 10/27/23 11:20 [facility] (Rec: 10/27/23 12:25 [facility] [id number]) Gym Equipment Shuttle Recovery Unilateral Squats Details cues for full knee ext Resistance 25# navy Reps/Time 20 Bilateral Squats Details cues for full knee ext Resistance 50#, 75# Reps/Time 15 ea wt Therapeutic Exercises Standing Exercises knee flex Standing Exercise Name 1. no wt 2. w/4# ankle wt Side right Reps/Minutes 10 ea Comments cues for posture heel raises Standing Exercise Name DL heel raises/toe raises Side bilateral Equipment Used rail Reps/Minutes 15 ea stretch Standing Exercise Name EVAN calf stretch Side bilateral Reps/Minutes 1 min step ups Side right Equipment Used 4 in step w/1 rail Reps/Minutes 15 Comments cues full knee ext TKE Side right Equipment Used L2 Reps/Minutes 15 Comments cues fro no hip movement Manual Therapy Treatment Consent Patient gave verbal consent for manual Yes treatment Soft Tissue Mobilization R knee Body Location R HS & calf & ITB Mobilization Type Rolling Intensity/Depth Moderate Neuro Re-Education Treatment Balance Activities foam Comments WBOS, NBOS and staggered stance B hurdles Comments 1. fwd reciprocally x8 PT-OP-T Assessment and Plan Start: 09/21/23 17:54 Freq: Status: Active Protocol: Document 10/27/23 11:20 [facility] (Rec: 10/27/23 12:25 [facility] [id number]) Physical Therapy Assessment Goals Four Impairment STS Short Term Goal (STG) Pt will be able to perform at least 10 STS to LRAD and no increase in R knee pain with transfer in order to demonstrate improved BLE strength for bathroom transfers STG Duration 4 weeks Box Toe Maker Goal (LTG) Pt will be able to perform 5x STS within age-related norms in order to demonstrate improved BLE strength for transfers and gait LTG Duration 12 weeks Three Impairment 2 MWT distance 148 ft with spc Short Term Goal (STG) Pt will normalize gait mechanics with LRAD and no pain in R knee with WB in order for pt to return to daily walks around his neighborhood STG Duration 4 weeks Care Home Goal (LTG) Pt will be able to complete 6 MWT with LRAD and no increase in R knee pain with WB in order for pt to return to daily ambulation within community gant LTG Duration 12 weeks Two Impairment strength R knee 3/5 Short Term Goal (STG) Pt will improve R knee flexion and extension strength to at least 4-/5 in order to demonstrate increased strength for gait, transfers STG Duration 8 weeks Care Home Goal (LTG) Pt will improve R knee flexion and extension strength to at least 4+/5 in order to demonstrate increased strength for gait, transfers LTG Duration 12 weeks One Impairment R knee AROM lacking 10 - 112 deg Short Term Goal (STG) Pt will improve R knee AROM to at least lacking 5 deg - 118 deg in order to demonstrate improved mobility for transfers, gait, and stairs STG Duration 6 weeks Care Home Goal (LTG) Pt will increase R knee AROM to at least 1 deg - 120 deg in order to demonstrate improved mobility for transfers, gait, and stairs LTG Duration 12 weeks Assessment Summary Assessment Pt tolerating advancement on strength and balance but is very challenged by balance. He requires cues for TKE w/all exercises today Physical Therapy Plan Frequency and Duration Frequency of Treatment 1-2x/wk Duration of treatment (weeks) 12 Plan of Care Start Date 10/10/23 Plan of Care End Date 01/06/24 Next Visit Focus/Plan Next Note Type Treatment Note Next Visit Plan cont to work on gait w/trek pole; work on progressive balance and cont step work
--- NOTE | 2023-10-31 13:00 | PT.OTN ---
Current Diagnoses Unilateral primary osteoarthritis, right knee (10/31/23) Stiffness of right knee, not elsewhere classified (10/31/23) Other lack of coordination (10/31/23) Weakness (10/31/23) Encounter for other preprocedural examination (10/31/23) Physical Therapy Treatment Note PT-OP-A Visit Information Start: 09/21/23 17:54 Freq: Status: Active Protocol: Document 10/31/23 09:05 NM (Rec: 10/31/23 09:49 NM [id number]) Out-Patient Physical Therapy Visit Information Visit Information Visit Type Treatment Note Visit Note KX after 19 visits Ors 610 Visit Start Time 09:06 Visit Stop Time 09:45 Visit Number 6 Evaluation Information Evaluation Date 10/10/23 Precautions Precautions pacemaker, Afib; hx high blood pressure; fall risk -[place] L worse than R (has hearing aids) PT-OP-B Current Condition Start: 09/21/23 17:54 Freq: Status: Active Protocol: Document 10/10/23 13:47 NM (Rec: 10/10/23 15:09 NM [id number]) Current Condition History of Current Condition Onset Date DOS 09/29/23; chronic knee pain Current Complaints pain, limited mobility History of Current Condition Pt presents with R knee pain s /p partial TKA on 09/29/23. Dr. Still performed the surgery. States medial portion of knee was replaced. Pt is using spc in R hand. He had spinal surgery last year (July 2022), fusion of 3 vertebrae. He continues to have pain in his spine and neural symptoms ( reports tingling) in R thigh to R toes, but states that he no longer has spinal precautions. He did have PT following the surgery, but states it was minimal and not helpful. He had L TKA 2015 with good results. He has follow up with Dr. Still on Tuesday, 10/12. Prior to surgery , pt was using his spc ( baseline), primarily for balance. He is also using a 4WW at house (ground floor), uses spc outside (easier due to car). Pt lives with his , Mariann, who helped provide hx. They live in a house with an elevator, with 20 stairs (rails- B); however, pt does not use the stairs. Pt reports that his knee has been hurting since at least 1 year pre-op, before his back started to hurt. Pt had a cortisone shot prior to surgery. Pt had a fall back in January 2022, which is what originally injured his back. No falls since surgery. Pt has PMH of Afib, pacemaker. Pt reports sciatica in his RLE- thigh. Wearing compression stockings Prior Treatments and Tests previous lumbar fusion L3-L5 in 07/2022 Treatment Goals Patient/Caregiver Goals to get better again, to reduce pain, improve mobility Prior Functional Status Baseline Function- ADL's Independent Baseline Function- Mobility Independent Baseline Function- Gait ambulation around [place] Baseline Function- Recreation/Hobbies bicycling (stationary), hiking Current Functional Impairments (Reported) Functional Limitations- ADL's no difficulty with dressing walk in shower w/ grab bars, reports no difficulty Functional Limitations- Mobility/Gait currently unable to ambulate around the block WB Functional Limitations- Other pt reports pain with transfers to/from toilet- back and knee PT-OP-C Subjective Start: 09/21/23 17:54 Freq: Status: Active Protocol: Document 10/31/23 09:05 NM (Rec: 10/31/23 09:49 NM [id number]) OP-PT Subjective Patient Comments Patient Comments Pt reports that he is having more inflammation in his R knee with activity, nicholas with WB. States that he had to cut down on his exercises. Reports that the inflammation is causing all of joints to hurt. Reports has had difficulty sleeping due to pain. Has been sitting in lazy boy with legs elevated but goes for walk with walker every 30 min; has been walking or riding stationary bike for 10 min ( unsure of resistance or speed) PT-OP-E Functional Tests Start: 10/10/23 15:18 Freq: Status: Active Protocol: Document 10/10/23 13:47 NM (Rec: 10/10/23 15:19 NM [id number]) Functional Tests 2 Minute Walk Test Distance 148 ft Device Used spc Comments fatigues, demos difficulty w/ sequencing PT-OP-F Manual Assessment Start: 09/21/23 17:54 Freq: Status: Active Protocol: Document 10/10/23 13:47 NM (Rec: 10/10/23 15:09 NM [id number]) Manual Assessments Soft Tissue Assessment Soft Tissue Mobility Assessment Restrictions of R hamstring and quad limiting ROM, decreased heel cord length B Joint Mobility Assessment Joint Mobility Assessment Empty end feel with PROM to pt tolerance PT-OP-G Mobility & Gait Start: 09/21/23 17:54 Freq: Status: Active Protocol: Document 10/10/23 13:47 NM (Rec: 10/10/23 15:09 NM [id number]) OP Mobility Evaluation Bed Mobility Rolling IND Supine to and from Sit IND; demos slight SLR to move RLE on/off table without assist Transfers Sit to Stand close SBA with BUE on chair or 1 UE on spc OP Gait Assessment Gait Gait Assistance Required: Standby Assistance,Contact Guard Assist Distance (Feet) 150 Assistive Devices Assistive Device Gait Belt,Straight Cane Gait Deviations General Gait Pattern Antalgic,Decreased Stride Length,Decreased Feet Clearance Factors Limiting Gait Function Factors Limiting Gait Function Decreased Activity Tolerance, Decreased Sensation,Decreased Strength,Limited Range of Motion,Pain,Poor Balance Comments Gait Comments Demos slight hip ER with RLE, decreased foot clearance and TKE in stance, limited R hip/ knee flexion in swing. Shuffles as fatigues and demos several instances of LOB with CGA to steady as distance increases and fatigues. Pt used to spc in R hand previously PT-OP-H Neuro Start: 10/10/23 15:10 Freq: Status: Active Protocol: Document 10/10/23 13:47 NM (Rec: 10/10/23 15:14 NM [id number]) Sensation Evaluation Comments Summary Comments BLE equally intact to light touch sensation PT-OP-J Posture/Palpation/Skin Start: 10/10/23 15:10 Freq: Status: Active Protocol: Document 10/10/23 13:47 NM (Rec: 10/10/23 15:14 NM [id number]) Posture Evaluation Position Standing Head/C-Spine Posture Forward Head Shoulder Posture (L) Rounded,(R) Rounded Arm Posture (L) Externally Rotated,(R) Externally Rotated Pelvis Posture Anteriorly Tilted Weight Distribution Weight Shifted Left Hip Posture (R) Externally Rotated Knee Posture (L) Genu Valgus,(R) Genu Valgus Palpation Assessment Location R knee Palpation Findings Soft Tissue Tightness Palpation Details Tenderness along medial knee, patella Increased edema at knee > ankle Skin Assessment Circumference Measurement R knee Location measured at patella Measurement (Centimeters) 43 Comments L knee: 40 cm R ankle Location figure 8 Measurement (Centimeters) 54 Comments L ankle: 51.5 cm Incisional Assessment Incision Appearance/Comments Incision is covered by bandage , which is clean, dry, and intact. No signs or symptoms of DVT or infection Other Assessments Skin Assessment Comments RLE is equal temperature and color PT-OP-K Range of Motion Start: 09/21/23 17:54 Freq: Status: Active Protocol: Document 10/24/23 13:02 SP (Rec: 10/24/23 13:55 SP [id number]) Knee Goniometric Range of Motion Knee Right Knee ROM WFL No Patient Position Supine Flexion Active (degrees) 123 Flexion Passive (degrees) 130 Extension Active (degrees) 0 Comments 0-123 AROM R knee supine: 1-130 PROM R knee supine 1-2 deg ext with SLR, 0 deg lag QS PT-OP-M Strength Start: 09/21/23 17:54 Freq: Status: Active Protocol: Document 10/10/23 13:47 NM (Rec: 10/10/23 15:09 NM [id number]) Hip Strength Hip Manual Muscle Testing Right Flexion (L2) 4- Good- Extension (S1) 4- Good- Abduction 4- Good- Adduction 4 Good Internal Rotation 4 Good Comments tested in sitting due to time Left Flexion (L2) 4- Good- Extension (S1) 4 Good Abduction 4- Good- Adduction 4 Good Comments tested in sitting due to time Knee Strength Knee Manual Muscle Testing Right Flexion (S2) 3 Fair Extension (L3) 3 Fair Comments Mild pain with extension against gravity Left Flexion (S2) 4 Good Extension (L3) 4 Good Ankle/Foot Strength Ankle and Foot Manual Muscle Testing Right Dorsiflexion (L4) 4 Good Plantarflexion (S1) 4 Good Comments tested in sitting Left Dorsiflexion (L4) 4 Good Plantarflexion (S1) 4 Good Comments tested in sitting PT-OP-Q Treatments Start: 09/21/23 17:54 Freq: Status: Active Protocol: Document 10/31/23 09:05 NM (Rec: 10/31/23 09:49 NM [id number]) Therapeutic Exercises Sitting Exercises LAQ Sitting Exercise Name trialed in PT Side right Equipment Used standard chair Reps/Minutes 15x3 Comments pain free; cued for form Standing Exercises TKE Standing Exercise Name trialed in PT vs TKE Side right Resistance level 2 band Reps/Minutes 10 w/ 3 hold Comments cueing for form to limit trunk ; improved w/ reps side steps Standing Exercise Name side steps only Side bilateral Resistance leve 2 band Equipment Used near but not need rail Reps/Minutes 10 ftx3 ea Comments cued neutral foot placement & posture Manual Therapy Treatment Consent Patient gave verbal consent for manual Yes treatment Soft Tissue Mobilization R knee Body Location R HS & calf & ITB Mobilization Type Rolling Intensity/Depth Moderate Body Position Hooklying Comments Increased restrictions of hamstrings distally, monitored for pain. Reduction palpable with manual treatment Joint Mobilizations R knee Joint tibiofemoral Direction mild distraction w/ flexion Grade II Body Position Sitting Reps/Duration 10 ea Neuro Re-Education Treatment Balance Activities blue pillow Details CGA Comments 1. WBOS 2. NBOS 3. Staggered 4. head turns 5. step ups fwd, 10 w/ 1 finger support for balance/WB support hurdles Reps/Duration 6 hurdles, 3 sets ea Comments 1. fwd 2 feet between ea hurdles (2 hands > 1 hand) Cued heel strike to promote foot clearance 2. fwd reciprocally Cued heel strike and knee/hip flex, no circumduction 3. lateral cued neutral foot positioning Self-Care/Home Management Treatment Education Patient Education Pain Management Other Education Pt spoke with PT Janeen Oneill about pain management prior to session starting today with cryotherapy, elevation, rest as needed, hydration PT-OP-T Assessment and Plan Start: 09/21/23 17:54 Freq: Status: Active Protocol: Document 10/31/23 09:05 NM (Rec: 10/31/23 09:49 NM [id number]) Physical Therapy Assessment Goals Four Impairment STS Short Term Goal (STG) Pt will be able to perform at least 10 STS to LRAD and no increase in R knee pain with transfer in order to demonstrate improved BLE strength for bathroom transfers STG Duration 4 weeks [facility] Goal (LTG) Pt will be able to perform 5x STS within age-related norms in order to demonstrate improved BLE strength for transfers and gait LTG Duration 12 weeks Three Impairment 2 MWT distance 148 ft with spc Short Term Goal (STG) Pt will normalize gait mechanics with LRAD and no pain in R knee with WB in order for pt to return to daily walks around his neighborhood STG Duration 4 weeks [facility] Goal (LTG) Pt will be able to complete 6 MWT with LRAD and no increase in R knee pain with WB in order for pt to return to daily ambulation within community gant LTG Duration 12 weeks Two Impairment strength R knee 3/5 Short Term Goal (STG) Pt will improve R knee flexion and extension strength to at least 4-/5 in order to demonstrate increased strength for gait, transfers STG Duration 8 weeks [employer] Goal (LTG) Pt will improve R knee flexion and extension strength to at least 4+/5 in order to demonstrate increased strength for gait, transfers LTG Duration 12 weeks One Impairment R knee AROM lacking 10 - 112 deg Short Term Goal (STG) Pt will improve R knee AROM to at least lacking 5 deg - 118 deg in order to demonstrate improved mobility for transfers, gait, and stairs STG Duration 6 weeks [employer] Goal (LTG) Pt will increase R knee AROM to at least 1 deg - 120 deg in order to demonstrate improved mobility for transfers, gait, and stairs LTG Duration 12 weeks Assessment Summary Assessment Pt has 122 deg flex, lacking 2 deg ext at start of session. Continues to have limitations in knee flexion and maintaining balance during stance while ambulating. Cued moderately for heel strike to promote knee flexion and improved foot clearance during gait and hurdles. Requires cueing for posture, neutral foot placement. Pt also has tendency to ER hip and circumduct foot with gait, side steps and hurdles. Balance still most challenging , especially on unstable surface; pt requires moderate cueing for trunk control and maintaining control overall as pt attempts to quickly move through activities to limit WB on RLe. Pt would benefit from skilled PT for progressive strengthening, gait, and balance training to improve symptom management and activity tolerance. Physical Therapy Plan Frequency and Duration Frequency of Treatment 1-2x/wk Duration of treatment (weeks) 12 Plan of Care Start Date 10/10/23 Plan of Care End Date 01/06/24 Therapeutic Interventions Therapeutic Interventions Balance Training,Gait Training ,Home Exercise Program,Joint Mobilizations,Manual Therapy, Neuromuscular Re-education, Orthotic/Prosthetic Management ,Patient/Caregiver Education, Self-Care/Home Management, Sensory Integration,Soft Tissue Mobilization,Taping, Therapeutic Activities, Therapeutic Exercises Modalities Cold Pack/Ice Massage,Hot Packs,Vasopneumatic Devices Other Therapeutic Interventions no e-stim due to pacemaker Next Visit Focus/Plan Next Note Type Treatment Note Next Visit Plan cont to work on gait w/trek pole; work on progressive balance and cont step work condense HEP. Retrial side steps with band. trial step up vs leg press, warm up on bike vs recumbent since has had home
--- NOTE | 2023-11-04 09:44 | PT.OTN ---
Current Diagnoses Unilateral primary osteoarthritis, right knee (11/04/23) Stiffness of right knee, not elsewhere classified (11/04/23) Other lack of coordination (11/04/23) Weakness (11/04/23) Encounter for other preprocedural examination (11/04/23) Physical Therapy Treatment Note PT-OP-A Visit Information Start: 09/21/23 17:54 Freq: Status: Active Protocol: Document 11/04/23 09:03 SP (Rec: 11/04/23 09:48 SP [id number]) Out-Patient Physical Therapy Visit Information Visit Information Visit Type Treatment Note Visit Note KX after 19 visits Ors 08/23 provides feedback, sits with legs down alot not drinking alot of water. Visit Start Time 09:03 Visit Stop Time 09:44 Visit Number 7 Number of RADIOLOGY CLERK Visits 1 Evaluation Information Evaluation Date 10/10/23 Precautions Precautions pacemaker, Afib; hx high blood pressure; fall risk -LYTTON L worse than R (has hearing aids) PT-OP-B Current Condition Start: 09/21/23 17:54 Freq: Status: Active Protocol: Document 10/10/23 13:47 NM (Rec: 10/10/23 15:09 NM [id number]) Current Condition History of Current Condition Onset Date DOS 09/29/23; chronic knee pain Current Complaints pain, limited mobility History of Current Condition Pt presents with R knee pain s /p partial TKA on 09/29/23. Dr. Still performed the surgery. States medial portion of knee was replaced. Pt is using spc in R hand. He had spinal surgery last year (July 2022), fusion of 3 vertebrae. He continues to have pain in his spine and neural symptoms ( reports tingling) in R thigh to R toes, but states that he no longer has spinal precautions. He did have PT following the surgery, but states it was minimal and not helpful. He had L TKA 2015 with good results. He has follow up with Dr. Still on Tuesday, 10/12. Prior to surgery , pt was using his spc ( baseline), primarily for balance. He is also using a 4WW at house (ground floor), uses spc outside (easier due to car). Pt lives with his , Mariann, who helped provide hx. They live in a house with an elevator, with 20 stairs (rails- B); however, pt does not use the stairs. Pt reports that his knee has been hurting since at least 1 year pre-op, before his back started to hurt. Pt had a cortisone shot prior to surgery. Pt had a fall back in January 2022, which is what originally injured his back. No falls since surgery. Pt has PMH of Afib, pacemaker. Pt reports sciatica in his RLE- thigh. Wearing compression stockings Prior Treatments and Tests previous lumbar fusion L3-L5 in 07/2022 Treatment Goals Patient/Caregiver Goals to get better again, to reduce pain, improve mobility Prior Functional Status Baseline Function- ADL's Independent Baseline Function- Mobility Independent Baseline Function- Gait ambulation around [place] Baseline Function- Recreation/Hobbies bicycling (stationary), hiking Current Functional Impairments (Reported) Functional Limitations- ADL's no difficulty with dressing walk in shower w/ grab bars, reports no difficulty Functional Limitations- Mobility/Gait currently unable to ambulate around the block WB Functional Limitations- Other pt reports pain with transfers to/from toilet- back and knee PT-OP-C Subjective Start: 09/21/23 17:54 Freq: Status: Active Protocol: Document 11/04/23 09:03 SP (Rec: 11/04/23 09:48 SP [id number]) OP-PT Subjective Patient Comments Patient Comments He reports has been feeling inflammation everywhere back, hands. R knee still hurting and not sleeping alot. Does use PT-OP-E Functional Tests Start: 10/10/23 15:18 Freq: Status: Active Protocol: Document 10/10/23 13:47 NM (Rec: 10/10/23 15:19 NM [id number]) Functional Tests 2 Minute Walk Test Distance 148 ft Device Used spc Comments fatigues, demos difficulty w/ sequencing PT-OP-F Manual Assessment Start: 09/21/23 17:54 Freq: Status: Active Protocol: Document 10/10/23 13:47 NM (Rec: 10/10/23 15:09 NM [id number]) Manual Assessments Soft Tissue Assessment Soft Tissue Mobility Assessment Restrictions of R hamstring and quad limiting ROM, decreased heel cord length B Joint Mobility Assessment Joint Mobility Assessment Empty end feel with PROM to pt tolerance PT-OP-G Mobility & Gait Start: 09/21/23 17:54 Freq: Status: Active Protocol: Document 10/10/23 13:47 NM (Rec: 10/10/23 15:09 NM [id number]) OP Mobility Evaluation Bed Mobility Rolling IND Supine to and from Sit IND; demos slight SLR to move RLE on/off table without assist Transfers Sit to Stand close SBA with BUE on chair or 1 UE on spc OP Gait Assessment Gait Gait Assistance Required: Standby Assistance,Contact Guard Assist Distance (Feet) 150 Assistive Devices Assistive Device Gait Belt,Straight Cane Gait Deviations General Gait Pattern Antalgic,Decreased Stride Length,Decreased Feet Clearance Factors Limiting Gait Function Factors Limiting Gait Function Decreased Activity Tolerance, Decreased Sensation,Decreased Strength,Limited Range of Motion,Pain,Poor Balance Comments Gait Comments Demos slight hip ER with RLE, decreased foot clearance and TKE in stance, limited R hip/ knee flexion in swing. Shuffles as fatigues and demos several instances of LOB with CGA to steady as distance increases and fatigues. Pt used to spc in R hand previously PT-OP-H Neuro Start: 10/10/23 15:10 Freq: Status: Active Protocol: Document 10/10/23 13:47 NM (Rec: 10/10/23 15:14 NM [id number]) Sensation Evaluation Comments Summary Comments BLE equally intact to light touch sensation PT-OP-J Posture/Palpation/Skin Start: 10/10/23 15:10 Freq: Status: Active Protocol: Document 10/10/23 13:47 NM (Rec: 10/10/23 15:14 NM [id number]) Posture Evaluation Position Standing Head/C-Spine Posture Forward Head Shoulder Posture (L) Rounded,(R) Rounded Arm Posture (L) Externally Rotated,(R) Externally Rotated Pelvis Posture Anteriorly Tilted Weight Distribution Weight Shifted Left Hip Posture (R) Externally Rotated Knee Posture (L) Genu Valgus,(R) Genu Valgus Palpation Assessment Location R knee Palpation Findings Soft Tissue Tightness Palpation Details Tenderness along medial knee, patella Increased edema at knee > ankle Skin Assessment Circumference Measurement R knee Location measured at patella Measurement (Centimeters) 43 Comments L knee: 40 cm R ankle Location figure 8 Measurement (Centimeters) 54 Comments L ankle: 51.5 cm Incisional Assessment Incision Appearance/Comments Incision is covered by bandage , which is clean, dry, and intact. No signs or symptoms of DVT or infection Other Assessments Skin Assessment Comments RLE is equal temperature and color PT-OP-K Range of Motion Start: 09/21/23 17:54 Freq: Status: Active Protocol: Document 11/04/23 09:03 SP (Rec: 11/04/23 09:48 SP [id number]) Knee Goniometric Range of Motion Knee Right Knee ROM WFL No Patient Position Supine Flexion Passive (degrees) 122 Extension Active (degrees) 2 Comments post manual 2-122 deg 11/04/23 PT-OP-M Strength Start: 09/21/23 17:54 Freq: Status: Active Protocol: Document 10/10/23 13:47 NM (Rec: 10/10/23 15:09 NM [id number]) Hip Strength Hip Manual Muscle Testing Right Flexion (L2) 4- Good- Extension (S1) 4- Good- Abduction 4- Good- Adduction 4 Good Internal Rotation 4 Good Comments tested in sitting due to time Left Flexion (L2) 4- Good- Extension (S1) 4 Good Abduction 4- Good- Adduction 4 Good Comments tested in sitting due to time Knee Strength Knee Manual Muscle Testing Right Flexion (S2) 3 Fair Extension (L3) 3 Fair Comments Mild pain with extension against gravity Left Flexion (S2) 4 Good Extension (L3) 4 Good Ankle/Foot Strength Ankle and Foot Manual Muscle Testing Right Dorsiflexion (L4) 4 Good Plantarflexion (S1) 4 Good Comments tested in sitting Left Dorsiflexion (L4) 4 Good Plantarflexion (S1) 4 Good Comments tested in sitting PT-OP-Q Treatments Start: 09/21/23 17:54 Freq: Status: Active Protocol: Document 11/04/23 09:03 SP (Rec: 11/04/23 09:48 SP [id number]) Therapeutic Exercises Supine Exercises quad set Side right Reps/Minutes 10 SH x10 Comments pre SLR- good contraction- not need keep up with for HEP Sitting Exercises LAQ Sitting Exercise Name trialed in PT Side right Resistance AROM- therapist target kick to for full ext as josep Equipment Used standard chair Reps/Minutes 15x5 Comments pain free; cued for form STS Sitting Exercise Name reviewed HEP Resistance AROM no uE (fwd) Equipment Used 20>18table Reps/Minutes 5 reps 20, 3 reps 18 Comments cued wt shift fwd and slow descend hip hinge sit- improved performance Standing Exercises side steps Standing Exercise Name side steps only Side bilateral Resistance leve 2 band Equipment Used near but not need rail Reps/Minutes 10 ftx3 ea Comments cued neutral foot placement & posture, TKE R>L Gait Training Gait Activity trek poles Description 2 pt gait Device Used [place] trek poles Distance/Duration 50 ft x2 laps Comments cued foot clearance DF, TKE midlstance roldan, taller posture . Manual Therapy Treatment Consent Patient gave verbal consent for manual Yes treatment Soft Tissue Mobilization R knee Body Location R HS & calf & ITB Mobilization Type Rolling Intensity/Depth Moderate Body Position Supine Comments Increased restrictions of hamstrings distally, monitored for pain. Reduction palpable with manual treatment Ed sit BLEs propped up straight during day. Self-Care/Home Management Treatment Education Patient Education Joint Protection,Pain Management,Posture,Safety Other Education DIscussed knee hang into ext periodically when sitting for knee ext support, mobility in standing every 30 min when awake, pillows between BLEs fully when side sleeping and under thighs supine for hip and back alignment support. Modalities for comfort pain in back. Speak with DR about lack of quality sleep and inflammation throughout body for mobility assist. PT-OP-T Assessment and Plan Start: 09/21/23 17:54 Freq: Status: Active Protocol: Document 11/04/23 09:03 SP (Rec: 11/04/23 09:48 SP [id number]) Physical Therapy Assessment Goals Four Impairment STS Short Term Goal (STG) Pt will be able to perform at least 10 STS to LRAD and no increase in R knee pain with transfer in order to demonstrate improved BLE strength for bathroom transfers STG Duration 4 weeks Chcf Goal (LTG) Pt will be able to perform 5x STS within age-related norms in order to demonstrate improved BLE strength for transfers and gait LTG Duration 12 weeks Three Impairment 2 MWT distance 148 ft with spc Short Term Goal (STG) Pt will normalize gait mechanics with LRAD and no pain in R knee with WB in order for pt to return to daily walks around his neighborhood STG Duration 4 weeks [facility] Goal (LTG) Pt will be able to complete 6 MWT with LRAD and no increase in R knee pain with WB in order for pt to return to daily ambulation within community gant LTG Duration 12 weeks Two Impairment strength R knee 3/5 Short Term Goal (STG) Pt will improve R knee flexion and extension strength to at least 4-/5 in order to demonstrate increased strength for gait, transfers STG Duration 8 weeks [facility] Goal (LTG) Pt will improve R knee flexion and extension strength to at least 4+/5 in order to demonstrate increased strength for gait, transfers LTG Duration 12 weeks One Impairment R knee AROM lacking 10 - 112 deg Short Term Goal (STG) Pt will improve R knee AROM to at least lacking 5 deg - 118 deg in order to demonstrate improved mobility for transfers, gait, and stairs STG Duration 6 weeks Recruiter Goal (LTG) Pt will increase R knee AROM to at least 1 deg - 120 deg in order to demonstrate improved mobility for transfers, gait, and stairs LTG Duration 12 weeks Progress Towards Goals Progress Comments R knee: AROM post manual 2-122 deg 11/04/23 Assessment Summary Assessment Pt reports overall inflammation and challenge with sleep for any period of time, discussed with pt and to speak with doctor to ask if there is anything contributing to this medically . Tx focused on ther ex performance and education of performance of HEP to allow increased flexibility and strength which can increased energy. Pt tolerated ther ex well, stated feels better by end of tx. Good patterning B trek poles, cues for DF and large step clearance, tires at approximately 50 Ft, brief rest standing before continued distance. discussed getting up every 30 min to walk around the house for LE and overall strength during awake hrs. Discussed importance of hydration and the benefits. Pt verbalized and has the HEP HOs to use, will try be better about this. Pt reports also give same advice at home, RADIOLOGY CLERK recommendation of supportive activitiy suggesting, pt verbalized will do more at home as suggested. Physical Therapy Plan Frequency and Duration Frequency of Treatment 1-2x/wk Duration of treatment (weeks) 12 Plan of Care Start Date 10/10/23 Plan of Care End Date 01/06/24 Therapeutic Interventions Therapeutic Interventions Balance Training,Gait Training ,Home Exercise Program,Joint Mobilizations,Manual Therapy, Neuromuscular Re-education, Orthotic/Prosthetic Management ,Patient/Caregiver Education, Self-Care/Home Management, Sensory Integration,Soft Tissue Mobilization,Taping, Therapeutic Activities, Therapeutic Exercises Modalities Cold Pack/Ice Massage,Hot Packs,Vasopneumatic Devices Other Therapeutic Interventions no e-stim due to pacemaker Next Visit Focus/Plan Next Note Type Treatment Note Next Visit Plan cont to work on gait w/trek pole; work on progressive balance and cont step work, condense HEP. Retrial side steps with band. trial step up vs leg press, warm up on bike vs recumbent since has had home
--- NOTE | 2023-11-08 12:27 | PT.OTN ---
Current Diagnoses Unilateral primary osteoarthritis, right knee (11/08/23) Stiffness of right knee, not elsewhere classified (11/08/23) Other lack of coordination (11/08/23) Weakness (11/08/23) Encounter for other preprocedural examination (11/08/23) Physical Therapy Treatment Note PT-OP-A Visit Information Start: 09/21/23 17:54 Freq: Status: Active Protocol: Document 11/08/23 11:16 [facility] (Rec: 11/08/23 12:27 [facility] [id number]) Out-Patient Physical Therapy Visit Information Visit Information Visit Type Treatment Note Visit Note KX after 19 visits Ors 02/23 Visit Start Time 11:20 Visit Stop Time 12:00 Visit Number 8 Number of RELATIONS DIRECTOR Visits 0 PT-OP-B Current Condition Start: 09/21/23 17:54 Freq: Status: Active Protocol: Document 10/10/23 13:47 [facility] (Rec: 10/10/23 15:09 NM [id number]) Current Condition History of Current Condition Onset Date DOS 09/29/23; chronic knee pain Current Complaints pain, limited mobility History of Current Condition Pt presents with R knee pain s /p partial TKA on 09/29/23. Dr. Still performed the surgery. States medial portion of knee was replaced. Pt is using spc in R hand. He had spinal surgery last year (July 2022), fusion of 3 vertebrae. He continues to have pain in his spine and neural symptoms ( reports tingling) in R thigh to R toes, but states that he no longer has spinal precautions. He did have PT following the surgery, but states it was minimal and not helpful. He had L TKA 2015 with good results. He has follow up with Dr. Still on Tuesday, 10/12. Prior to surgery , pt was using his spc ( baseline), primarily for balance. He is also using a 4WW at house (ground floor), uses spc outside (easier due to car). Pt lives with his , Mariann, who helped provide hx. They live in a house with an elevator, with 20 stairs (rails- B); however, pt does not use the stairs. Pt reports that his knee has been hurting since at least 1 year pre-op, before his back started to hurt. Pt had a cortisone shot prior to surgery. Pt had a fall back in January 2022, which is what originally injured his back. No falls since surgery. Pt has PMH of Afib, pacemaker. Pt reports sciatica in his RLE- thigh. Wearing compression stockings Prior Treatments and Tests previous lumbar fusion L3-L5 in 07/2022 Treatment Goals Patient/Caregiver Goals to get better again, to reduce pain, improve mobility Prior Functional Status Baseline Function- ADL's Independent Baseline Function- Mobility Independent Baseline Function- Gait ambulation around [place] Baseline Function- Recreation/Hobbies bicycling (stationary), hiking Current Functional Impairments (Reported) Functional Limitations- ADL's no difficulty with dressing walk in shower w/ grab bars, reports no difficulty Functional Limitations- Mobility/Gait currently unable to ambulate around the block WB Functional Limitations- Other pt reports pain with transfers to/from toilet- back and knee PT-OP-C Subjective Start: 09/21/23 17:54 Freq: Status: Active Protocol: Document 11/08/23 11:16 [facility] (Rec: 11/08/23 12:27 [facility] [id number]) OP-PT Subjective Patient Comments Patient Comments Pt reports R knee has been swollen but has not been icing . Only used bike twice. Doing 1 block 1-2x/day PT-OP-E Functional Tests Start: 10/10/23 15:18 Freq: Status: Active Protocol: Document 11/08/23 11:16 [facility] (Rec: 11/08/23 12:27 [facility] [id number]) Functional Tests 2 Minute Walk Test Distance 225ft Device Used SPC intermittently Comments 5/10 pain, 1 catch of foot and I recovery Five Times Sit to Stand Test Score unable to complete 5 w/o hands Comments 39 sec to do 4 PT-OP-F Manual Assessment Start: 09/21/23 17:54 Freq: Status: Active Protocol: Document 10/10/23 13:47 NM (Rec: 10/10/23 15:09 NM [id number]) Manual Assessments Soft Tissue Assessment Soft Tissue Mobility Assessment Restrictions of R hamstring and quad limiting ROM, decreased heel cord length B Joint Mobility Assessment Joint Mobility Assessment Empty end feel with PROM to pt tolerance PT-OP-G Mobility & Gait Start: 09/21/23 17:54 Freq: Status: Active Protocol: Document 10/10/23 13:47 NM (Rec: 10/10/23 15:09 NM [id number]) OP Mobility Evaluation Bed Mobility Rolling IND Supine to and from Sit IND; demos slight SLR to move RLE on/off table without assist Transfers Sit to Stand close SBA with BUE on chair or 1 UE on spc OP Gait Assessment Gait Gait Assistance Required: Standby Assistance,Contact Guard Assist Distance (Feet) 150 Assistive Devices Assistive Device Gait Belt,Straight Cane Gait Deviations General Gait Pattern Antalgic,Decreased Stride Length,Decreased Feet Clearance Factors Limiting Gait Function Factors Limiting Gait Function Decreased Activity Tolerance, Decreased Sensation,Decreased Strength,Limited Range of Motion,Pain,Poor Balance Comments Gait Comments Demos slight hip ER with RLE, decreased foot clearance and TKE in stance, limited R hip/ knee flexion in swing. Shuffles as fatigues and demos several instances of LOB with CGA to steady as distance increases and fatigues. Pt used to spc in R hand previously PT-OP-H Neuro Start: 10/10/23 15:10 Freq: Status: Active Protocol: Document 10/10/23 13:47 NM (Rec: 10/10/23 15:14 NM [id number]) Sensation Evaluation Comments Summary Comments BLE equally intact to light touch sensation PT-OP-J Posture/Palpation/Skin Start: 10/10/23 15:10 Freq: Status: Active Protocol: Document 10/10/23 13:47 NM (Rec: 10/10/23 15:14 NM [id number]) Posture Evaluation Position Standing Head/C-Spine Posture Forward Head Shoulder Posture (L) Rounded,(R) Rounded Arm Posture (L) Externally Rotated,(R) Externally Rotated Pelvis Posture Anteriorly Tilted Weight Distribution Weight Shifted Left Hip Posture (R) Externally Rotated Knee Posture (L) Genu Valgus,(R) Genu Valgus Palpation Assessment Location R knee Palpation Findings Soft Tissue Tightness Palpation Details Tenderness along medial knee, patella Increased edema at knee > ankle Skin Assessment Circumference Measurement R knee Location measured at patella Measurement (Centimeters) 43 Comments L knee: 40 cm R ankle Location figure 8 Measurement (Centimeters) 54 Comments L ankle: 51.5 cm Incisional Assessment Incision Appearance/Comments Incision is covered by bandage , which is clean, dry, and intact. No signs or symptoms of DVT or infection Other Assessments Skin Assessment Comments RLE is equal temperature and color PT-OP-K Range of Motion Start: 09/21/23 17:54 Freq: Status: Active Protocol: Document 11/08/23 11:16 [facility] (Rec: 11/08/23 12:27 [facility] [id number]) Knee Goniometric Range of Motion Knee Right Knee ROM WFL No Patient Position Supine Flexion Passive (degrees) 123 Extension Active (degrees) 8 PT-OP-M Strength Start: 09/21/23 17:54 Freq: Status: Active Protocol: Document 11/08/23 11:16 [facility] (Rec: 11/08/23 12:27 [facility] [id number]) Knee Strength Knee Manual Muscle Testing Right Flexion (S2) 4+ Good+ Extension (L3) 4- Good- Comments pain w/ext PT-OP-Q Treatments Start: 09/21/23 17:54 Freq: Status: Active Protocol: Document 11/08/23 11:16 [facility] (Rec: 11/08/23 12:27 [facility] [id number]) Gym Equipment Shuttle Recovery Unilateral Squats Details cues for full knee ext Resistance 25# navy Reps/Time 15 B Therapeutic Exercises Supine Exercises quad set Supine Exercise Name Knee flex/ext ROM Side right Sitting Exercises LAQ Sitting Exercise Name LAQ/knee flex MMT Side right STS Resistance no UE Equipment Used silver chair Reps/Minutes 4 Gait Training Gait Activity stairs Comments 4 in step ups RLE w/2 rails x15 spc Comments 2 min walk-cues for foot clearance 100ft x3 working on heel contact and correct cane use Manual Therapy Treatment Consent Patient gave verbal consent for manual Yes treatment Soft Tissue Mobilization R knee Body Location R HS Mobilization Type Rolling Intensity/Depth Moderate Body Position Supine Comments w/active hS stretch and quad set Joint Mobilizations R knee Joint tibiofemoral Direction AP tibia Grade II Body Position Supine Self-Care/Home Management Treatment Activities Self-Care/Home Management Activities review of exercises works through w/management trainer per paper pt brought in:fwd lean calf stretch, standing quad stretch , supine HS stretch, squat, standing knee flex, SL heel raise, LAQ, SLRX4, knee flex w /strap, standing ITB stretch, seated piriformis stretch, SKTC, s/l ER and IR of hip PT-OP-T Assessment and Plan Start: 09/21/23 17:54 Freq: Status: Active Protocol: Document 11/08/23 11:16 [facility] (Rec: 11/08/23 12:27 [facility] [id number]) Physical Therapy Assessment Goals Four Impairment STS Short Term Goal (STG) Pt will be able to perform at least 10 STS to LRAD and no increase in R knee pain with transfer in order to demonstrate improved BLE strength for bathroom transfers 11/07-inc knee pain -can if uses hands STG Duration 4 weeks Traffic Police Officer Goal (LTG) Pt will be able to perform 5x STS within age-related norms in order to demonstrate improved BLE strength for transfers and gait 11/07-39 sec for 4 LTG Duration 12 weeks Three Impairment 2 MWT distance 148 ft with spc Short Term Goal (STG) Pt will normalize gait mechanics with LRAD and no pain in R knee with WB in order for pt to return to daily walks around his neighborhood 11/07-has been walking around neighborhood w/walker;225ft w/ SPC w/5/10 pain STG Duration 4 weeks Traffic Police Officer Goal (LTG) Pt will be able to complete 6 MWT with LRAD and no increase in R knee pain with WB in order for pt to return to daily ambulation within community gant LTG Duration 12 weeks Two Impairment strength R knee 3/5 Short Term Goal (STG) Pt will improve R knee flexion and extension strength to at least 4-/5 in order to demonstrate increased strength for gait, transfers STG Duration achieved 11/07 Traffic Police Officer Goal (LTG) Pt will improve R knee flexion and extension strength to at least 4+/5 in order to demonstrate increased strength for gait, transfers 11/07-achieved flex, weaknesss w/ext LTG Duration 12 weeks One Impairment R knee AROM lacking 10 - 112 deg Short Term Goal (STG) Pt will improve R knee AROM to at least lacking 5 deg - 118 deg in order to demonstrate improved mobility for transfers, gait, and stairs 11/07-8-123; knee ext a little worse today STG Duration 6 weeks Jail Goal (LTG) Pt will increase R knee AROM to at least 1 deg - 120 deg in order to demonstrate improved mobility for transfers, gait, and stairs LTG Duration 12 weeks Assessment Summary Assessment Pt and son encouraged to have ice daily 2x/day and to try bike more. Pt requires a lot of cues w/gait for improved LE clearance.Pt progressing well w/PT w/ROM and strenght but does still have limited ext that improves w/manual and weakness in quads. Physical Therapy Plan Frequency and Duration Frequency of Treatment 1-2x/wk Duration of treatment (weeks) 12 Plan of Care Start Date 10/10/23 Plan of Care End Date 01/06/24 Therapeutic Interventions Therapeutic Interventions Balance Training,Gait Training ,Home Exercise Program,Joint Mobilizations,Manual Therapy, Neuromuscular Re-education, Orthotic/Prosthetic Management ,Patient/Caregiver Education, Self-Care/Home Management, Sensory Integration,Soft Tissue Mobilization,Taping, Therapeutic Activities, Therapeutic Exercises Modalities Cold Pack/Ice Massage,Hot Packs,Vasopneumatic Devices Other Therapeutic Interventions no e-stim due to pacemaker Next Visit Focus/Plan Next Note Type Treatment Note Next Visit Plan work on bike use for increasing home use and comfort, focus on ext and quad strength; work on gait w/foot clearance
--- NOTE | 2023-11-10 15:12 | PT.OTN ---
Current Diagnoses Unilateral primary osteoarthritis, right knee (11/10/23) Stiffness of right knee, not elsewhere classified (11/10/23) Other lack of coordination (11/10/23) Weakness (11/10/23) Encounter for other preprocedural examination (11/10/23) Physical Therapy Treatment Note PT-OP-A Visit Information Start: 09/21/23 17:54 Freq: Status: Active Protocol: Document 11/10/23 14:29 SP (Rec: 11/10/23 15:47 SP [id number]) Out-Patient Physical Therapy Visit Information Visit Information Visit Type Treatment Note Visit Note KX after 19 visits Ors 210 Visit Start Time 14:30 Visit Stop Time 15:12 Visit Number 9 Number of [employer] Visits 1 Evaluation Information Evaluation Date 10/10/23 Precautions Precautions pacemaker, Afib; hx high blood pressure; fall risk -BLACKFEET L worse than R (has hearing aids) PT-OP-B Current Condition Start: 09/21/23 17:54 Freq: Status: Active Protocol: Document 10/10/23 13:47 NM (Rec: 10/10/23 15:09 NM [id number]) Current Condition History of Current Condition Onset Date DOS 09/29/23; chronic knee pain Current Complaints pain, limited mobility History of Current Condition Pt presents with R knee pain s /p partial TKA on 09/29/23. Dr. Still performed the surgery. States medial portion of knee was replaced. Pt is using spc in R hand. He had spinal surgery last year (July 2022), fusion of 3 vertebrae. He continues to have pain in his spine and neural symptoms ( reports tingling) in R thigh to R toes, but states that he no longer has spinal precautions. He did have PT following the surgery, but states it was minimal and not helpful. He had L TKA 2015 with good results. He has follow up with Dr. Still on Tuesday, 10/12. Prior to surgery , pt was using his spc ( baseline), primarily for balance. He is also using a 4WW at house (ground floor), uses spc outside (easier due to car). Pt lives with his , Mariann, who helped provide hx. They live in a house with an elevator, with 20 stairs (rails- B); however, pt does not use the stairs. Pt reports that his knee has been hurting since at least 1 year pre-op, before his back started to hurt. Pt had a cortisone shot prior to surgery. Pt had a fall back in January 2022, which is what originally injured his back. No falls since surgery. Pt has PMH of Afib, pacemaker. Pt reports sciatica in his RLE- thigh. Wearing compression stockings Prior Treatments and Tests previous lumbar fusion L3-L5 in 07/2022 Treatment Goals Patient/Caregiver Goals to get better again, to reduce pain, improve mobility Prior Functional Status Baseline Function- ADL's Independent Baseline Function- Mobility Independent Baseline Function- Gait ambulation around [place] Baseline Function- Recreation/Hobbies bicycling (stationary), hiking Current Functional Impairments (Reported) Functional Limitations- ADL's no difficulty with dressing walk in shower w/ grab bars, reports no difficulty Functional Limitations- Mobility/Gait currently unable to ambulate around the block WB Functional Limitations- Other pt reports pain with transfers to/from toilet- back and knee PT-OP-C Subjective Start: 09/21/23 17:54 Freq: Status: Active Protocol: Document 11/10/23 14:29 SP (Rec: 11/10/23 15:47 SP [id number]) OP-PT Subjective Patient Comments Patient Comments Pt got some pain medication but makes him feel loopy so doesn't like to take it. He is riding his recumbent bike and feels loosens up his joint, at home reduction 20 min to 10 min at time so not to irritate knees and prevent him from doing other activities. Tries to do his exercises but does still cause pain. Saw orthopedic and told will be last appt and everything seems to be going according to schedule s/p R knee surgery. PT-OP-E Functional Tests Start: 10/10/23 15:18 Freq: Status: Active Protocol: Document 11/08/23 11:16 [facility] (Rec: 11/08/23 12:27 [facility] [id number]) Functional Tests 2 Minute Walk Test Distance 225ft Device Used SPC intermittently Comments 5/10 pain, 1 catch of foot and I recovery Five Times Sit to Stand Test Score unable to complete 5 w/o hands Comments 39 sec to do 4 PT-OP-F Manual Assessment Start: 09/21/23 17:54 Freq: Status: Active Protocol: Document 10/10/23 13:47 NM (Rec: 10/10/23 15:09 NM [id number]) Manual Assessments Soft Tissue Assessment Soft Tissue Mobility Assessment Restrictions of R hamstring and quad limiting ROM, decreased heel cord length B Joint Mobility Assessment Joint Mobility Assessment Empty end feel with PROM to pt tolerance PT-OP-G Mobility & Gait Start: 09/21/23 17:54 Freq: Status: Active Protocol: Document 10/10/23 13:47 NM (Rec: 10/10/23 15:09 NM [id number]) OP Mobility Evaluation Bed Mobility Rolling IND Supine to and from Sit IND; demos slight SLR to move RLE on/off table without assist Transfers Sit to Stand close SBA with BUE on chair or 1 UE on spc OP Gait Assessment Gait Gait Assistance Required: Standby Assistance,Contact Guard Assist Distance (Feet) 150 Assistive Devices Assistive Device Gait Belt,Straight Cane Gait Deviations General Gait Pattern Antalgic,Decreased Stride Length,Decreased Feet Clearance Factors Limiting Gait Function Factors Limiting Gait Function Decreased Activity Tolerance, Decreased Sensation,Decreased Strength,Limited Range of Motion,Pain,Poor Balance Comments Gait Comments Demos slight hip ER with RLE, decreased foot clearance and TKE in stance, limited R hip/ knee flexion in swing. Shuffles as fatigues and demos several instances of LOB with CGA to steady as distance increases and fatigues. Pt used to spc in R hand previously PT-OP-H Neuro Start: 10/10/23 15:10 Freq: Status: Active Protocol: Document 10/10/23 13:47 NM (Rec: 10/10/23 15:14 NM [id number]) Sensation Evaluation Comments Summary Comments BLE equally intact to light touch sensation PT-OP-J Posture/Palpation/Skin Start: 10/10/23 15:10 Freq: Status: Active Protocol: Document 10/10/23 13:47 NM (Rec: 10/10/23 15:14 NM [id number]) Posture Evaluation Position Standing Head/C-Spine Posture Forward Head Shoulder Posture (L) Rounded,(R) Rounded Arm Posture (L) Externally Rotated,(R) Externally Rotated Pelvis Posture Anteriorly Tilted Weight Distribution Weight Shifted Left Hip Posture (R) Externally Rotated Knee Posture (L) Genu Valgus,(R) Genu Valgus Palpation Assessment Location R knee Palpation Findings Soft Tissue Tightness Palpation Details Tenderness along medial knee, patella Increased edema at knee > ankle Skin Assessment Circumference Measurement R knee Location measured at patella Measurement (Centimeters) 43 Comments L knee: 40 cm R ankle Location figure 8 Measurement (Centimeters) 54 Comments L ankle: 51.5 cm Incisional Assessment Incision Appearance/Comments Incision is covered by bandage , which is clean, dry, and intact. No signs or symptoms of DVT or infection Other Assessments Skin Assessment Comments RLE is equal temperature and color PT-OP-K Range of Motion Start: 09/21/23 17:54 Freq: Status: Active Protocol: Document 11/08/23 11:16 [facility] (Rec: 11/08/23 12:27 [facility] [id number]) Knee Goniometric Range of Motion Knee Right Knee ROM WFL No Patient Position Supine Flexion Passive (degrees) 123 Extension Active (degrees) 8 PT-OP-M Strength Start: 09/21/23 17:54 Freq: Status: Active Protocol: Document 11/08/23 11:16 [facility] (Rec: 11/08/23 12:27 [facility] [id number]) Knee Strength Knee Manual Muscle Testing Right Flexion (S2) 4+ Good+ Extension (L3) 4- Good- Comments pain w/ext PT-OP-Q Treatments Start: 09/21/23 17:54 Freq: Status: Active Protocol: Document 11/10/23 14:29 SP (Rec: 11/10/23 15:47 SP [id number]) Cardio Equipment Recumbent Bicycle Duration (Minutes) 6 Resistance 6 feels same as home Seat Position 8 Other approx 37 RPM, full revolutions Therapeutic Exercises Supine Exercises quad set Supine Exercise Name Knee flex/ext ROM Side right Resistance therapist flat hand Reps/Minutes 10 SH x10 Comments tactile cues under knee SLR Supine Exercise Name added to HEP- copied doc HO Side right Equipment Used opp knee bent Reps/Minutes 5 reps Comments max cues TKE 5 reps good lift but challenge maintain lowering,imprlast 2 re Sitting Exercises LAQ Sitting Exercise Name LAQ Side right Resistance AROM isometric Reps/Minutes 5 SH x10 Comments cued TKE, ankle up as high as can go. Standing Exercises step ups Side right Equipment Used 6 in step w/1 rail Reps/Minutes 15 Comments cues full knee ext & pelvis under Gait Training Gait Activity stairs Description receiprocal stepping Device Used 2>1 HR Level of Assistance SBA Distance/Duration 6 steps x4 sets Treatment Focus TKE asc, eccentric controlled flexion desc, foot clearance Comments 4 in step stairs: Cued bigger step out forward to allow safe front step clearance descending, slower pacing to support eccentric quad control. spc Device Used SPC Level of Assistance SBA/S end tx Distance/Duration around clinic (not measured) Treatment Focus heel toe, foot clearance & stride, SPC patterning Comments working on heel toe and forward wt shift into advanced LE, correct 2pt gait cane positioning in LUE advancement with RLE Manual Therapy Treatment Joint Mobilizations R ankle Joint talocrual Direction AP Grade II Body Position Supine Comments knee flexion R knee Grade II Comments tibiofemoral AP tibia- knee flexed tibfib proximal AP- knee flexed patella femoral (med/lat/sup/ inf)- supine Neuro Re-Education Treatment Balance Activities hurdles Details fwd: step to>receiprocal stepping, Lateral Equipment 1 UE>PRN UE contact rail recovery support bal Reps/Duration 6 hurdles, 2 sets ea Comments 1. fwd 2 feet between ea hurdles (1 hands > 0 hand) 2. fwd reciprocally 3. lateral cued neutral foot positioning& *cues for each: tall posture, big step foot clearance, wt shift over TKE stance LE R>L during opp LE clearance, circumduction PT-OP-T Assessment and Plan Start: 09/21/23 17:54 Freq: Status: Active Protocol: Document 11/10/23 14:29 SP (Rec: 11/10/23 15:47 SP [id number]) Physical Therapy Assessment Goals Four Impairment STS Short Term Goal (STG) Pt will be able to perform at least 10 STS to LRAD and no increase in R knee pain with transfer in order to demonstrate improved BLE strength for bathroom transfers 11/07-inc knee pain -can if uses hands STG Duration 4 weeks Mcfp Goal (LTG) Pt will be able to perform 5x STS within age-related norms in order to demonstrate improved BLE strength for transfers and gait 11/07-39 sec for 4 LTG Duration 12 weeks Three Impairment 2 MWT distance 148 ft with spc Short Term Goal (STG) Pt will normalize gait mechanics with LRAD and no pain in R knee with WB in order for pt to return to daily walks around his neighborhood 11/07-has been walking around neighborhood w/walker;225ft w/ SPC w/5/10 pain STG Duration 4 weeks Sing[employer] Machine Operator Goal (LTG) Pt will be able to complete 6 MWT with LRAD and no increase in R knee pain with WB in order for pt to return to daily ambulation within community gant LTG Duration 12 weeks Two Impairment strength R knee 3/5 Short Term Goal (STG) Pt will improve R knee flexion and extension strength to at least 4-/5 in order to demonstrate increased strength for gait, transfers STG Duration achieved 11/07 [employer] Machine Operator Goal (LTG) Pt will improve R knee flexion and extension strength to at least 4+/5 in order to demonstrate increased strength for gait, transfers 11/07-achieved flex, weaknesss w/ext LTG Duration 12 weeks One Impairment R knee AROM lacking 10 - 112 deg Short Term Goal (STG) Pt will improve R knee AROM to at least lacking 5 deg - 118 deg in order to demonstrate improved mobility for transfers, gait, and stairs 11/07-8-123; knee ext a little worse today STG Duration 6 weeks Mcfp Goal (LTG) Pt will increase R knee AROM to at least 1 deg - 120 deg in order to demonstrate improved mobility for transfers, gait, and stairs LTG Duration 12 weeks Assessment Summary Assessment Pt improved TKE during quad set (only therapist flat hand under pressing into), able complete SLR, max cues maintain QS lowering improved decreased lag last 2 reps. Continuous 1 step sequencing stepping and TKE during step ups (less UE support) and improved LE extension during stance time to allow nimesh stepping no UE support. Education provided taller forward wt shift into advanced LE during gait for improve stability, tends retro upper body lean when walking, unsteady at times but can make corrections with demo and cues during tx. I being active with recumbent bike at home but reduced time 10 min so has endurance for daily activities and not over tire legs causing pain. Physical Therapy Plan Frequency and Duration Frequency of Treatment 1-2x/wk Duration of treatment (weeks) 12 Plan of Care Start Date 10/10/23 Plan of Care End Date 01/06/24 Therapeutic Interventions Therapeutic Interventions Balance Training,Gait Training ,Home Exercise Program,Joint Mobilizations,Manual Therapy, Neuromuscular Re-education, Orthotic/Prosthetic Management ,Patient/Caregiver Education, Self-Care/Home Management, Sensory Integration,Soft Tissue Mobilization,Taping, Therapeutic Activities, Therapeutic Exercises Modalities Cold Pack/Ice Massage,Hot Packs,Vasopneumatic Devices Other Therapeutic Interventions no e-stim due to pacemaker Next Visit Focus/Plan Next Note Type Treatment Note Next Visit Plan work on bike use for increasing home use and comfort, focus on ext and quad strength; work on gait w/foot clearance
--- NOTE | 2023-11-15 11:49 | PT-OP ANOTE ---
Pt called re: no show ('s number is number listed). She notes she is out of town and their son was supposed to bring him so she will call to find out what is going on and ask son/DIL to call clinic to reschedule if able.
--- NOTE | 2023-11-17 14:28 | PT.OTN ---
Current Diagnoses Unilateral primary osteoarthritis, right knee (11/17/23) Stiffness of right knee, not elsewhere classified (11/17/23) Other lack of coordination (11/17/23) Weakness (11/17/23) Encounter for other preprocedural examination (11/17/23) Physical Therapy Treatment Note PT-OP-A Visit Information Start: 09/21/23 17:54 Freq: Status: Active Protocol: Document 11/17/23 13:48 SP (Rec: 11/17/23 14:37 SP [id number]) Out-Patient Physical Therapy Visit Information Visit Information Visit Type Treatment Note Visit Note KX after 19 visits Ors 04/23 Visit Start Time 13:48 Visit Stop Time 14:28 Visit Number 10 Number of EXTRUDING DEPARTMENT SUPERVISOR Visits 2 Evaluation Information Evaluation Date 10/10/23 Precautions Precautions pacemaker, Afib; hx high blood pressure; fall risk -KLETSEL DEHE WINTUN L worse than R (has hearing aids) PT-OP-B Current Condition Start: 09/21/23 17:54 Freq: Status: Active Protocol: Document 10/10/23 13:47 NM (Rec: 10/10/23 15:09 NM [id number]) Current Condition History of Current Condition Onset Date DOS 09/29/23; chronic knee pain Current Complaints pain, limited mobility History of Current Condition Pt presents with R knee pain s /p partial TKA on 09/29/23. Dr. Still performed the surgery. States medial portion of knee was replaced. Pt is using spc in R hand. He had spinal surgery last year (July 2022), fusion of 3 vertebrae. He continues to have pain in his spine and neural symptoms ( reports tingling) in R thigh to R toes, but states that he no longer has spinal precautions. He did have PT following the surgery, but states it was minimal and not helpful. He had L TKA 2015 with good results. He has follow up with Dr. Still on Tuesday, 10/12. Prior to surgery , pt was using his spc ( baseline), primarily for balance. He is also using a 4WW at house (ground floor), uses spc outside (easier due to car). Pt lives with his , Mariann, who helped provide hx. They live in a house with an elevator, with 20 stairs (rails- B); however, pt does not use the stairs. Pt reports that his knee has been hurting since at least 1 year pre-op, before his back started to hurt. Pt had a cortisone shot prior to surgery. Pt had a fall back in January 2022, which is what originally injured his back. No falls since surgery. Pt has PMH of Afib, pacemaker. Pt reports sciatica in his RLE- thigh. Wearing compression stockings Prior Treatments and Tests previous lumbar fusion L3-L5 in 07/2022 Treatment Goals Patient/Caregiver Goals to get better again, to reduce pain, improve mobility Prior Functional Status Baseline Function- ADL's Independent Baseline Function- Mobility Independent Baseline Function- Gait ambulation around [place] Baseline Function- Recreation/Hobbies bicycling (stationary), hiking Current Functional Impairments (Reported) Functional Limitations- ADL's no difficulty with dressing walk in shower w/ grab bars, reports no difficulty Functional Limitations- Mobility/Gait currently unable to ambulate around the block WB Functional Limitations- Other pt reports pain with transfers to/from toilet- back and knee PT-OP-C Subjective Start: 09/21/23 17:54 Freq: Status: Active Protocol: Document 11/17/23 13:48 SP (Rec: 11/17/23 14:37 SP [id number]) OP-PT Subjective Patient Comments Patient Comments Pt reports little tired, had 2 other appts at [facility] then 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 for PT appt, just made it in time . PT-OP-E Functional Tests Start: 10/10/23 15:18 Freq: Status: Active Protocol: Document 11/08/23 11:16 [facility] (Rec: 11/08/23 12:27 [facility] [id number]) Functional Tests 2 Minute Walk Test Distance 225ft Device Used SPC intermittently Comments 5/10 pain, 1 catch of foot and I recovery Five Times Sit to Stand Test Score unable to complete 5 w/o hands Comments 39 sec to do 4 PT-OP-F Manual Assessment Start: 09/21/23 17:54 Freq: Status: Active Protocol: Document 10/10/23 13:47 NM (Rec: 10/10/23 15:09 NM [id number]) Manual Assessments Soft Tissue Assessment Soft Tissue Mobility Assessment Restrictions of R hamstring and quad limiting ROM, decreased heel cord length B Joint Mobility Assessment Joint Mobility Assessment Empty end feel with PROM to pt tolerance PT-OP-G Mobility & Gait Start: 09/21/23 17:54 Freq: Status: Active Protocol: Document 10/10/23 13:47 NM (Rec: 10/10/23 15:09 NM [id number]) OP Mobility Evaluation Bed Mobility Rolling IND Supine to and from Sit IND; demos slight SLR to move RLE on/off table without assist Transfers Sit to Stand close SBA with BUE on chair or 1 UE on spc OP Gait Assessment Gait Gait Assistance Required: Standby Assistance,Contact Guard Assist Distance (Feet) 150 Assistive Devices Assistive Device Gait Belt,Straight Cane Gait Deviations General Gait Pattern Antalgic,Decreased Stride Length,Decreased Feet Clearance Factors Limiting Gait Function Factors Limiting Gait Function Decreased Activity Tolerance, Decreased Sensation,Decreased Strength,Limited Range of Motion,Pain,Poor Balance Comments Gait Comments Demos slight hip ER with RLE, decreased foot clearance and TKE in stance, limited R hip/ knee flexion in swing. Shuffles as fatigues and demos several instances of LOB with CGA to steady as distance increases and fatigues. Pt used to spc in R hand previously PT-OP-H Neuro Start: 10/10/23 15:10 Freq: Status: Active Protocol: Document 10/10/23 13:47 NM (Rec: 10/10/23 15:14 NM [id number]) Sensation Evaluation Comments Summary Comments BLE equally intact to light touch sensation PT-OP-J Posture/Palpation/Skin Start: 10/10/23 15:10 Freq: Status: Active Protocol: Document 10/10/23 13:47 NM (Rec: 10/10/23 15:14 NM [id number]) Posture Evaluation Position Standing Head/C-Spine Posture Forward Head Shoulder Posture (L) Rounded,(R) Rounded Arm Posture (L) Externally Rotated,(R) Externally Rotated Pelvis Posture Anteriorly Tilted Weight Distribution Weight Shifted Left Hip Posture (R) Externally Rotated Knee Posture (L) Genu Valgus,(R) Genu Valgus Palpation Assessment Location R knee Palpation Findings Soft Tissue Tightness Palpation Details Tenderness along medial knee, patella Increased edema at knee > ankle Skin Assessment Circumference Measurement R knee Location measured at patella Measurement (Centimeters) 43 Comments L knee: 40 cm R ankle Location figure 8 Measurement (Centimeters) 54 Comments L ankle: 51.5 cm Incisional Assessment Incision Appearance/Comments Incision is covered by bandage , which is clean, dry, and intact. No signs or symptoms of DVT or infection Other Assessments Skin Assessment Comments RLE is equal temperature and color PT-OP-K Range of Motion Start: 09/21/23 17:54 Freq: Status: Active Protocol: Document 11/08/23 11:16 LR (Rec: 11/08/23 12:27 [facility] [id number]) Knee Goniometric Range of Motion Knee Right Knee ROM WFL No Patient Position Supine Flexion Passive (degrees) 123 Extension Active (degrees) 8 PT-OP-M Strength Start: 09/21/23 17:54 Freq: Status: Active Protocol: Document 11/08/23 11:16 [facility] (Rec: 11/08/23 12:27 [facility] [id number]) Knee Strength Knee Manual Muscle Testing Right Flexion (S2) 4+ Good+ Extension (L3) 4- Good- Comments pain w/ext PT-OP-Q Treatments Start: 09/21/23 17:54 Freq: Status: Active Protocol: Document 11/17/23 13:48 SP (Rec: 11/17/23 14:37 SP [id number]) Cardio Equipment Recumbent Bicycle Duration (Minutes) 6 Resistance 6 Seat Position 8- 1.46 miles Other approx 37 RPM, full revolutions Therapeutic Exercises Sitting Exercises LAQ Sitting Exercise Name LAQ- added to HEP /c HO Side right Resistance AROM> TB #1 light blue Equipment Used kick to therapist hand target for TKE Reps/Minutes x10 each LE Comments cued TKE STS Sitting Exercise Name HEP reviewed Resistance no UE Equipment Used black BIG chair Reps/Minutes 6 Comments good form forward hip hinge asc/desc Standing Exercises toe raises Standing Exercise Name back to wall/rail- added to HEP /c HO Side bilateral Resistance AROM Reps/Minutes 2x10 reps Comments good tiring effort heel raises Standing Exercise Name DL heel raises Side bilateral Equipment Used light 1 finger 1 rail, facing rail Reps/Minutes 15 ea stretch Standing Exercise Name added to HEP /c HO Side bilateral Equipment Used towel under forefoot, BUE rail support Reps/Minutes 1 min Comments cued stand tall, wt shift fwd over leg stretching Gait Training Gait Activity spc Device Used SPC Level of Assistance SBA/S end tx Distance/Duration 170 ft lap around clinic Treatment Focus heel toe, foot clearance & stride, SPC patterning Comments working on DF LE swing phase and heel toe advanced landing, forward wt shift into advanced LE, correct 2pt gait cane positioning in LUE advancement with RLE Neuro Re-Education Treatment Balance Activities hurdles Details fwd: eceiprocal stepping Equipment PRN rail Reps/Duration 6 hurdles, 2 sets ea Comments *cues for each: tall posture, big step foot clearance, DF, wt shift over TKE stance LE R> L during opp LE clearance, decreased circumduction LLE PT-OP-T Assessment and Plan Start: 09/21/23 17:54 Freq: Status: Active Protocol: Document 11/17/23 13:48 SP (Rec: 11/17/23 14:37 SP [id number]) Physical Therapy Assessment Goals Four Impairment STS Short Term Goal (STG) Pt will be able to perform at least 10 STS to LRAD and no increase in R knee pain with transfer in order to demonstrate improved BLE strength for bathroom transfers 11/07-inc knee pain -can if uses hands STG Duration 4 weeks Long-Term Goal (LTG) Pt will be able to perform 5x STS within age-related norms in order to demonstrate improved BLE strength for transfers and gait 11/07-39 sec for 4 LTG Duration 12 weeks Three Impairment 2 MWT distance 148 ft with spc Short Term Goal (STG) Pt will normalize gait mechanics with LRAD and no pain in R knee with WB in order for pt to return to daily walks around his neighborhood 11/07-has been walking around neighborhood w/walker;225ft w/ SPC w/5/10 pain STG Duration 4 weeks Long-Term Goal (LTG) Pt will be able to complete 6 MWT with LRAD and no increase in R knee pain with WB in order for pt to return to daily ambulation within community gant LTG Duration 12 weeks Two Impairment strength R knee 3/5 Short Term Goal (STG) Pt will improve R knee flexion and extension strength to at least 4-/5 in order to demonstrate increased strength for gait, transfers STG Duration achieved 11/07 Payroll Associate Goal (LTG) Pt will improve R knee flexion and extension strength to at least 4+/5 in order to demonstrate increased strength for gait, transfers 11/07-achieved flex, weaknesss w/ext LTG Duration 12 weeks One Impairment R knee AROM lacking 10 - 112 deg Short Term Goal (STG) Pt will improve R knee AROM to at least lacking 5 deg - 118 deg in order to demonstrate improved mobility for transfers, gait, and stairs 11/07-8-123; knee ext a little worse today STG Duration 6 weeks Payroll Associate Goal (LTG) Pt will increase R knee AROM to at least 1 deg - 120 deg in order to demonstrate improved mobility for transfers, gait, and stairs LTG Duration 12 weeks Assessment Summary Assessment Pt tolerated tx well, focused on DFs and quad strengthening to support standing balance. Good effort, able to don/doff TB at ankles/under foot and standing back to wall DF to support safe gait. Improved hurdles end tx with cues for carryover DF and heel toe landing, able perform with out UE support. Physical Therapy Plan Frequency and Duration Frequency of Treatment 1-2x/wk Duration of treatment (weeks) 12 Plan of Care Start Date 10/10/23 Plan of Care End Date 01/06/24 Therapeutic Interventions Therapeutic Interventions Balance Training,Gait Training ,Home Exercise Program,Joint Mobilizations,Manual Therapy, Neuromuscular Re-education, Orthotic/Prosthetic Management ,Patient/Caregiver Education, Self-Care/Home Management, Sensory Integration,Soft Tissue Mobilization,Taping, Therapeutic Activities, Therapeutic Exercises Modalities Cold Pack/Ice Massage,Hot Packs,Vasopneumatic Devices Other Therapeutic Interventions no e-stim due to pacemaker Next Visit Focus/Plan Next Note Type Treatment Note Next Visit Plan work on bike use for increasing home use and comfort, focus on ext and quad strength; work on gait w/foot clearance
--- NOTE | 2023-11-21 13:48 | PT.OTN ---
Current Diagnoses Unilateral primary osteoarthritis, right knee (11/21/23) Stiffness of right knee, not elsewhere classified (11/21/23) Other lack of coordination (11/21/23) Weakness (11/21/23) Encounter for other preprocedural examination (11/21/23) Physical Therapy Treatment Note PT-OP-A Visit Information Start: 09/21/23 17:54 Freq: Status: Active Protocol: Document 11/21/23 13:05 SP (Rec: 11/21/23 13:51 SP [id number]) Out-Patient Physical Therapy Visit Information Visit Information Visit Type Treatment Note Visit Note KX after 19 visits Ors 4/10 after PN Visit Start Time 13:05 Visit Stop Time 13:48 Visit Number 11 Number of FITTING ROOM ASSOCIATE Visits 3 Evaluation Information Evaluation Date 10/10/23 Precautions Precautions pacemaker, Afib; hx high blood pressure; fall risk -[place] L worse than R (has hearing aids) PT-OP-B Current Condition Start: 09/21/23 17:54 Freq: Status: Active Protocol: Document 10/10/23 13:47 NM (Rec: 10/10/23 15:09 NM [id number]) Current Condition History of Current Condition Onset Date DOS 09/29/23; chronic knee pain Current Complaints pain, limited mobility History of Current Condition Pt presents with R knee pain s /p partial TKA on 09/29/23. Dr. Still performed the surgery. States medial portion of knee was replaced. Pt is using spc in R hand. He had spinal surgery last year (July 2022), fusion of 3 vertebrae. He continues to have pain in his spine and neural symptoms ( reports tingling) in R thigh to R toes, but states that he no longer has spinal precautions. He did have PT following the surgery, but states it was minimal and not helpful. He had L TKA 2015 with good results. He has follow up with Dr. Still on Tuesday, 10/12. Prior to surgery , pt was using his spc ( baseline), primarily for balance. He is also using a 4WW at house (ground floor), uses spc outside (easier due to car). Pt lives with his , Mariann, who helped provide hx. They live in a house with an elevator, with 20 stairs (rails- B); however, pt does not use the stairs. Pt reports that his knee has been hurting since at least 1 year pre-op, before his back started to hurt. Pt had a cortisone shot prior to surgery. Pt had a fall back in January 2022, which is what originally injured his back. No falls since surgery. Pt has PMH of Afib, pacemaker. Pt reports sciatica in his RLE- thigh. Wearing compression stockings Prior Treatments and Tests previous lumbar fusion L3-L5 in 07/2022 Treatment Goals Patient/Caregiver Goals to get better again, to reduce pain, improve mobility Prior Functional Status Baseline Function- ADL's Independent Baseline Function- Mobility Independent Baseline Function- Gait ambulation around [place] Baseline Function- Recreation/Hobbies bicycling (stationary), hiking Current Functional Impairments (Reported) Functional Limitations- ADL's no difficulty with dressing walk in shower w/ grab bars, reports no difficulty Functional Limitations- Mobility/Gait currently unable to ambulate around the block WB Functional Limitations- Other pt reports pain with transfers to/from toilet- back and knee PT-OP-C Subjective Start: 09/21/23 17:54 Freq: Status: Active Protocol: Document 11/21/23 13:05 SP (Rec: 11/21/23 13:51 SP [id number]) OP-PT Subjective Patient Comments Patient Comments Pt reports woke up this am with mulitiple jt pain in his hands and knees. He reports broke down and took a pain pill today at 6 am so could still get some more sleep due to knees hurting . Pt states still little off today think from medication at arrival. Proper use of SPC in LUE to support RLE but noted LLE decreased DF unsafety advancement. Pt and state they have a link trainer mechanic come to the house for progress activity, she focuses with pt on proper form HEP. PT-OP-E Functional Tests Start: 10/10/23 15:18 Freq: Status: Active Protocol: Document 11/08/23 11:16 [facility] (Rec: 11/08/23 12:27 [facility] [id number]) Functional Tests 2 Minute Walk Test Distance 225ft Device Used SPC intermittently Comments 5/10 pain, 1 catch of foot and I recovery Five Times Sit to Stand Test Score unable to complete 5 w/o hands Comments 39 sec to do 4 PT-OP-F Manual Assessment Start: 09/21/23 17:54 Freq: Status: Active Protocol: Document 10/10/23 13:47 NM (Rec: 10/10/23 15:09 NM [id number]) Manual Assessments Soft Tissue Assessment Soft Tissue Mobility Assessment Restrictions of R hamstring and quad limiting ROM, decreased heel cord length B Joint Mobility Assessment Joint Mobility Assessment Empty end feel with PROM to pt tolerance PT-OP-G Mobility & Gait Start: 09/21/23 17:54 Freq: Status: Active Protocol: Document 10/10/23 13:47 NM (Rec: 10/10/23 15:09 NM [id number]) OP Mobility Evaluation Bed Mobility Rolling IND Supine to and from Sit IND; demos slight SLR to move RLE on/off table without assist Transfers Sit to Stand close SBA with BUE on chair or 1 UE on spc OP Gait Assessment Gait Gait Assistance Required: Standby Assistance,Contact Guard Assist Distance (Feet) 150 Assistive Devices Assistive Device Gait Belt,Straight Cane Gait Deviations General Gait Pattern Antalgic,Decreased Stride Length,Decreased Feet Clearance Factors Limiting Gait Function Factors Limiting Gait Function Decreased Activity Tolerance, Decreased Sensation,Decreased Strength,Limited Range of Motion,Pain,Poor Balance Comments Gait Comments Demos slight hip ER with RLE, decreased foot clearance and TKE in stance, limited R hip/ knee flexion in swing. Shuffles as fatigues and demos several instances of LOB with CGA to steady as distance increases and fatigues. Pt used to spc in R hand previously PT-OP-H Neuro Start: 10/10/23 15:10 Freq: Status: Active Protocol: Document 10/10/23 13:47 NM (Rec: 10/10/23 15:14 NM [id number]) Sensation Evaluation Comments Summary Comments BLE equally intact to light touch sensation PT-OP-J Posture/Palpation/Skin Start: 10/10/23 15:10 Freq: Status: Active Protocol: Document 10/10/23 13:47 NM (Rec: 10/10/23 15:14 NM [id number]) Posture Evaluation Position Standing Head/C-Spine Posture Forward Head Shoulder Posture (L) Rounded,(R) Rounded Arm Posture (L) Externally Rotated,(R) Externally Rotated Pelvis Posture Anteriorly Tilted Weight Distribution Weight Shifted Left Hip Posture (R) Externally Rotated Knee Posture (L) Genu Valgus,(R) Genu Valgus Palpation Assessment Location R knee Palpation Findings Soft Tissue Tightness Palpation Details Tenderness along medial knee, patella Increased edema at knee > ankle Skin Assessment Circumference Measurement R knee Location measured at patella Measurement (Centimeters) 43 Comments L knee: 40 cm R ankle Location figure 8 Measurement (Centimeters) 54 Comments L ankle: 51.5 cm Incisional Assessment Incision Appearance/Comments Incision is covered by bandage , which is clean, dry, and intact. No signs or symptoms of DVT or infection Other Assessments Skin Assessment Comments RLE is equal temperature and color PT-OP-K Range of Motion Start: 09/21/23 17:54 Freq: Status: Active Protocol: Document 11/21/23 13:05 SP (Rec: 11/21/23 13:51 SP [id number]) Knee Goniometric Range of Motion Knee Right Knee ROM WFL No Patient Position Supine Flexion Passive (degrees) 129 Extension Active (degrees) 1 Comments R knee AROM supine: flexion gained 6 deg, 129 deg extension gain 7 deg, 1 deg Left Knee ROM WFL No Patient Position Supine Flexion Active (degrees) 125 Extension Active (degrees) 1 Comments L knee AROM supine: flexion gained 3 deg, 125 deg extension no change, 1 deg PT-OP-M Strength Start: 09/21/23 17:54 Freq: Status: Active Protocol: Document 11/08/23 11:16 [facility] (Rec: 11/08/23 12:27 [facility] [id number]) Knee Strength Knee Manual Muscle Testing Right Flexion (S2) 4+ Good+ Extension (L3) 4- Good- Comments pain w/ext PT-OP-Q Treatments Start: 09/21/23 17:54 Freq: Status: Active Protocol: Document 11/21/23 13:05 SP (Rec: 11/21/23 13:51 SP [id number]) Cardio Equipment Recumbent Bicycle Duration (Minutes) 8 Resistance 6 Seat Position in 8- 1.63miles Other approx 333-37 RPM, full revolutions Gym Equipment Shuttle Recovery Unilateral Squats Details cued not locking into extension Resistance 25# > 37#navy Reps/Time x10 each Bilateral Squats Details good form and not locking out knee Resistance 75# (2 navy, 1 teal) Reps/Time 20 Therapeutic Exercises Supine Exercises quad set Supine Exercise Name Knee flex/ext ROM Side right Resistance therapist flat hand under knee Reps/Minutes 10 SH x10 Comments tactile cues under knee Sitting Exercises STS Sitting Exercise Name HEP reviewed Resistance no UE Equipment Used 18 table- 1 UE support all but 1 rep (hands on lap) Reps/Minutes x10 Comments good form forward hip hinge asc/slower desc Standing Exercises side steps Standing Exercise Name side steps only Side bilateral Resistance leve 2 band at shins Equipment Used need 1 rail support, trialed without but 1 LOB Min A recovery Reps/Minutes 5 ftx3 ea (side treadmill) Comments cued R>L feet parallel, increased LLE DF foot clearance. L foot caught flr squat Standing Exercise Name mini-squat- reviewed Side bilateral Equipment Used hand support on bar Reps/Minutes x10 Comments cued for hip hinge buttocks Gait Training Gait Activity spc Description decreased LLE DF clearance advancement Device Used SPC- Ed putting SPC in RUE support LLE DF Level of Assistance SBA Distance/Duration various distances throughout clinic Treatment Focus heel toe, foot clearance & stride, SPC patterning Comments working on DF LLE swing phase and cues for heel toe advancement, forward wt shift into advanced LE, correct 2pt gait cane positioning in RUE advancement with LLE PT-OP-T Assessment and Plan Start: 09/21/23 17:54 Freq: Status: Active Protocol: Document 11/21/23 13:05 SP (Rec: 11/21/23 13:51 SP [id number]) Physical Therapy Assessment Goals Four Impairment STS Short Term Goal (STG) Pt will be able to perform at least 10 STS to LRAD and no increase in R knee pain with transfer in order to demonstrate improved BLE strength for bathroom transfers 11/07-inc knee pain -can if uses hands STG Duration 4 weeks Group Home Goal (LTG) Pt will be able to perform 5x STS within age-related norms in order to demonstrate improved BLE strength for transfers and gait 11/07-39 sec for 4 LTG Duration 12 weeks Three Impairment 2 MWT distance 148 ft with spc Short Term Goal (STG) Pt will normalize gait mechanics with LRAD and no pain in R knee with WB in order for pt to return to daily walks around his neighborhood 11/07-has been walking around neighborhood w/walker;225ft w/ SPC w/5/10 pain STG Duration 4 weeks Group Home Goal (LTG) Pt will be able to complete 6 MWT with LRAD and no increase in R knee pain with WB in order for pt to return to daily ambulation within community gant LTG Duration 12 weeks Two Impairment strength R knee 3/5 Short Term Goal (STG) Pt will improve R knee flexion and extension strength to at least 4-/5 in order to demonstrate increased strength for gait, transfers STG Duration achieved 11/07 Group Home Goal (LTG) Pt will improve R knee flexion and extension strength to at least 4+/5 in order to demonstrate increased strength for gait, transfers 11/07-achieved flex, weaknesss w/ext LTG Duration 12 weeks One Impairment R knee AROM lacking 10 - 112 deg Short Term Goal (STG) Pt will improve R knee AROM to at least lacking 5 deg - 118 deg in order to demonstrate improved mobility for transfers, gait, and stairs 11/07-8-123; knee ext a little worse today 11/21/23: 1-129 deg AROM R, STG Duration 6 weeks GOAL MET 11/21/23 Group Home Goal (LTG) Pt will increase R knee AROM to at least 1 deg - 120 deg in order to demonstrate improved mobility for transfers, gait, and stairs 11/21/23: GOAL MET 1-129 RLE LTG Duration 12 weeks GOAL MET 11/21/23 Progress Towards Goals Progress Comments R knee AROM supine: flexion gained 6 deg, 129 deg extension gain 7 deg, 1 deg L knee AROM supine: flexion gained 3 deg, 125 deg extension no change, 1 deg Assessment Summary Assessment Pt making good gains in AROM B knees. Focused on HEP and tolerated increased resistance during shuttle recovery today , cues for not locking knees into extension. Pt demonstrated L LE decreased DF during LE advancement, time spent mechanics of heel strike to toe eccentric control, updated use of SPC, suggested in RUE to support LLE decreased foot clearance for safety. DIscussed with pt and continue SPC in RUE to support safe gait at this time . Physical Therapy Plan Frequency and Duration Frequency of Treatment 1-2x/wk Duration of treatment (weeks) 12 Plan of Care Start Date 10/10/23 Plan of Care End Date 01/06/24 Therapeutic Interventions Therapeutic Interventions Balance Training,Gait Training ,Home Exercise Program,Joint Mobilizations,Manual Therapy, Neuromuscular Re-education, Orthotic/Prosthetic Management ,Patient/Caregiver Education, Self-Care/Home Management, Sensory Integration,Soft Tissue Mobilization,Taping, Therapeutic Activities, Therapeutic Exercises Modalities Cold Pack/Ice Massage,Hot Packs,Vasopneumatic Devices Other Therapeutic Interventions no e-stim due to pacemaker Next Visit Focus/Plan Next Note Type Treatment Note Next Visit Plan REcheck SPC in RUE/ pattern with LLE, improvement DF LLE. Start with a 6MWT warm up next tx. POC: work on bike use for increasing home use and comfort, focus on ext and quad strength; work on gait w/foot clearance
--- NOTE | 2023-11-24 15:21 | PT.OTN ---
Current Diagnoses Unilateral primary osteoarthritis, right knee (11/24/23) Stiffness of right knee, not elsewhere classified (11/24/23) Other lack of coordination (11/24/23) Weakness (11/24/23) Encounter for other preprocedural examination (11/24/23) Physical Therapy Treatment Note PT-OP-A Visit Information Start: 09/21/23 17:54 Freq: Status: Active Protocol: Document 11/24/23 14:25 SW (Rec: 11/24/23 15:21 SW [id number]) Out-Patient Physical Therapy Visit Information Visit Information Visit Type Treatment Note Visit Note KX after 19 visits Ors 5/10 after PN Visit Start Time 14:30 Visit Stop Time 15:10 Visit Number 12 Number of [employer] Visits 4 Precautions Precautions pacemaker, Afib; hx high blood pressure; fall risk -[place] L worse than R (has hearing aids) PT-OP-B Current Condition Start: 09/21/23 17:54 Freq: Status: Active Protocol: Document 10/10/23 13:47 NM (Rec: 10/10/23 15:09 NM [id number]) Current Condition History of Current Condition Onset Date DOS 09/29/23; chronic knee pain Current Complaints pain, limited mobility History of Current Condition Pt presents with R knee pain s /p partial TKA on 09/29/23. Dr. Still performed the surgery. States medial portion of knee was replaced. Pt is using spc in R hand. He had spinal surgery last year (July 2022), fusion of 3 vertebrae. He continues to have pain in his spine and neural symptoms ( reports tingling) in R thigh to R toes, but states that he no longer has spinal precautions. He did have PT following the surgery, but states it was minimal and not helpful. He had L TKA 2015 with good results. He has follow up with Dr. Still on Tuesday, 10/12. Prior to surgery , pt was using his spc ( baseline), primarily for balance. He is also using a 4WW at house (ground floor), uses spc outside (easier due to car). Pt lives with his , Mariann, who helped provide hx. They live in a house with an elevator, with 20 stairs (rails- B); however, pt does not use the stairs. Pt reports that his knee has been hurting since at least 1 year pre-op, before his back started to hurt. Pt had a cortisone shot prior to surgery. Pt had a fall back in January 2022, which is what originally injured his back. No falls since surgery. Pt has PMH of Afib, pacemaker. Pt reports sciatica in his RLE- thigh. Wearing compression stockings Prior Treatments and Tests previous lumbar fusion L3-L5 in 07/2022 Treatment Goals Patient/Caregiver Goals to get better again, to reduce pain, improve mobility Prior Functional Status Baseline Function- ADL's Independent Baseline Function- Mobility Independent Baseline Function- Gait ambulation around [place] Baseline Function- Recreation/Hobbies bicycling (stationary), hiking Current Functional Impairments (Reported) Functional Limitations- ADL's no difficulty with dressing walk in shower w/ grab bars, reports no difficulty Functional Limitations- Mobility/Gait currently unable to ambulate around the block WB Functional Limitations- Other pt reports pain with transfers to/from toilet- back and knee PT-OP-C Subjective Start: 09/21/23 17:54 Freq: Status: Active Protocol: Document 11/24/23 14:25 SW (Rec: 11/24/23 15:21 SW [id number]) OP-PT Subjective Patient Comments Patient Comments Pt reports recovering from a cold. Pt reports in pain legs, back, and sides. Pt reports tomorrow has a echocardiogram. Pt reports feeling tired, it goes up and down. PT-OP-E Functional Tests Start: 10/10/23 15:18 Freq: Status: Active Protocol: Document 11/08/23 11:16 [facility] (Rec: 11/08/23 12:27 [facility] [id number]) Functional Tests 2 Minute Walk Test Distance 225ft Device Used SPC intermittently Comments 5/10 pain, 1 catch of foot and I recovery Five Times Sit to Stand Test Score unable to complete 5 w/o hands Comments 39 sec to do 4 PT-OP-F Manual Assessment Start: 09/21/23 17:54 Freq: Status: Active Protocol: Document 10/10/23 13:47 NM (Rec: 10/10/23 15:09 NM [id number]) Manual Assessments Soft Tissue Assessment Soft Tissue Mobility Assessment Restrictions of R hamstring and quad limiting ROM, decreased heel cord length B Joint Mobility Assessment Joint Mobility Assessment Empty end feel with PROM to pt tolerance PT-OP-G Mobility & Gait Start: 09/21/23 17:54 Freq: Status: Active Protocol: Document 10/10/23 13:47 NM (Rec: 10/10/23 15:09 NM [id number]) OP Mobility Evaluation Bed Mobility Rolling IND Supine to and from Sit IND; demos slight SLR to move RLE on/off table without assist Transfers Sit to Stand close SBA with BUE on chair or 1 UE on spc OP Gait Assessment Gait Gait Assistance Required: Standby Assistance,Contact Guard Assist Distance (Feet) 150 Assistive Devices Assistive Device Gait Belt,Straight Cane Gait Deviations General Gait Pattern Antalgic,Decreased Stride Length,Decreased Feet Clearance Factors Limiting Gait Function Factors Limiting Gait Function Decreased Activity Tolerance, Decreased Sensation,Decreased Strength,Limited Range of Motion,Pain,Poor Balance Comments Gait Comments Demos slight hip ER with RLE, decreased foot clearance and TKE in stance, limited R hip/ knee flexion in swing. Shuffles as fatigues and demos several instances of LOB with CGA to steady as distance increases and fatigues. Pt used to spc in R hand previously PT-OP-H Neuro Start: 10/10/23 15:10 Freq: Status: Active Protocol: Document 10/10/23 13:47 NM (Rec: 10/10/23 15:14 NM [id number]) Sensation Evaluation Comments Summary Comments BLE equally intact to light touch sensation PT-OP-J Posture/Palpation/Skin Start: 10/10/23 15:10 Freq: Status: Active Protocol: Document 10/10/23 13:47 NM (Rec: 10/10/23 15:14 NM [id number]) Posture Evaluation Position Standing Head/C-Spine Posture Forward Head Shoulder Posture (L) Rounded,(R) Rounded Arm Posture (L) Externally Rotated,(R) Externally Rotated Pelvis Posture Anteriorly Tilted Weight Distribution Weight Shifted Left Hip Posture (R) Externally Rotated Knee Posture (L) Genu Valgus,(R) Genu Valgus Palpation Assessment Location R knee Palpation Findings Soft Tissue Tightness Palpation Details Tenderness along medial knee, patella Increased edema at knee > ankle Skin Assessment Circumference Measurement R knee Location measured at patella Measurement (Centimeters) 43 Comments L knee: 40 cm R ankle Location figure 8 Measurement (Centimeters) 54 Comments L ankle: 51.5 cm Incisional Assessment Incision Appearance/Comments Incision is covered by bandage , which is clean, dry, and intact. No signs or symptoms of DVT or infection Other Assessments Skin Assessment Comments RLE is equal temperature and color PT-OP-K Range of Motion Start: 09/21/23 17:54 Freq: Status: Active Protocol: Document 11/21/23 13:05 SP (Rec: 11/21/23 13:51 SP [id number]) Knee Goniometric Range of Motion Knee Right Knee ROM WFL No Patient Position Supine Flexion Passive (degrees) 129 Extension Active (degrees) 1 Comments R knee AROM supine: flexion gained 6 deg, 129 deg extension gain 7 deg, 1 deg Left Knee ROM WFL No Patient Position Supine Flexion Active (degrees) 125 Extension Active (degrees) 1 Comments L knee AROM supine: flexion gained 3 deg, 125 deg extension no change, 1 deg PT-OP-M Strength Start: 09/21/23 17:54 Freq: Status: Active Protocol: Document 11/08/23 11:16 [facility] (Rec: 11/08/23 12:27 [facility] [id number]) Knee Strength Knee Manual Muscle Testing Right Flexion (S2) 4+ Good+ Extension (L3) 4- Good- Comments pain w/ext PT-OP-Q Treatments Start: 09/21/23 17:54 Freq: Status: Active Protocol: Document 11/24/23 14:25 SW (Rec: 11/24/23 15:21 SW [id number]) Cardio Equipment Recumbent Bicycle Duration (Minutes) 8 Resistance 6 Seat Position in 8- 1.58 Other approx 33-37 RPM, full revolutions Gym Equipment Shuttle Recovery Unilateral Squats Details cued not locking into extension Resistance 25# > 37#navy Reps/Time x10 each Bilateral Squats Details good form and not locking out knee Resistance 75# (2 navy, 1 teal) Reps/Time 20 Therapeutic Exercises Supine Exercises quad set Supine Exercise Name Knee flex/ext ROM Side right Resistance therapist flat hand under knee Reps/Minutes 10 SH x10 Comments tactile cues under knee Sitting Exercises LAQ Sitting Exercise Name LAQ reviewed HEP Side right Resistance TB #1 light blue Equipment Used kick to therapist hand target for TKE Reps/Minutes x10 each LE Comments cued TKE STS Sitting Exercise Name HEP reviewed Resistance no UE Equipment Used 18 table- 1 UE support all but 1 rep (hands on lap) Reps/Minutes x10 Comments good form forward hip hinge asc/slower desc Standing Exercises toe raises Standing Exercise Name back to wall/rail- reviewed HEP Side bilateral Resistance AROM Reps/Minutes 2x10 reps Comments good tiring effort heel raises Standing Exercise Name DL heel raises Side bilateral Equipment Used light 1 finger 1 rail, facing rail Reps/Minutes 15 ea side steps Standing Exercise Name side steps only Side bilateral Resistance leve 2 band at ankle Equipment Used need 1 rail support, trialed without but 1 LOB Min A recovery Reps/Minutes 5 ftx3 ea (at bed) Comments cued R>L feet parallel, increased LLE DF foot clearance. L foot caught flr squat Standing Exercise Name mini-squat- reviewed HEP Side bilateral Equipment Used hand support on bar Reps/Minutes x12 Comments cued for hip hinge buttocks Gait Training Gait Activity spc Description SPC Distance/Duration Various distance throughout clinic Treatment Focus heel toe, foot clearance & stride, SPC patterning Comments working on gait mechanics and foot clearance with SPC, pt ambulates with antalgic gait with a R lateral lean PT-OP-T Assessment and Plan Start: 09/21/23 17:54 Freq: Status: Active Protocol: Document 11/24/23 14:25 SW (Rec: 11/24/23 15:21 SW [id number]) Physical Therapy Assessment Goals Four Impairment STS Short Term Goal (STG) Pt will be able to perform at least 10 STS to LRAD and no increase in R knee pain with transfer in order to demonstrate improved BLE strength for bathroom transfers 11/07-inc knee pain -can if uses hands STG Duration 4 weeks Long-Term Goal (LTG) Pt will be able to perform 5x STS within age-related norms in order to demonstrate improved BLE strength for transfers and gait 11/07-39 sec for 4 LTG Duration 12 weeks Three Impairment 2 MWT distance 148 ft with spc Short Term Goal (STG) Pt will normalize gait mechanics with LRAD and no pain in R knee with WB in order for pt to return to daily walks around his neighborhood 11/07-has been walking around neighborhood w/walker;225ft w/ SPC w/5/10 pain STG Duration 4 weeks Long-Term Goal (LTG) Pt will be able to complete 6 MWT with LRAD and no increase in R knee pain with WB in order for pt to return to daily ambulation within community gant LTG Duration 12 weeks Two Impairment strength R knee 3/5 Short Term Goal (STG) Pt will improve R knee flexion and extension strength to at least 4-/5 in order to demonstrate increased strength for gait, transfers STG Duration achieved 11/07 Will Call Order Clerk Goal (LTG) Pt will improve R knee flexion and extension strength to at least 4+/5 in order to demonstrate increased strength for gait, transfers 11/07-achieved flex, weaknesss w/ext LTG Duration 12 weeks One Impairment R knee AROM lacking 10 - 112 deg Short Term Goal (STG) Pt will improve R knee AROM to at least lacking 5 deg - 118 deg in order to demonstrate improved mobility for transfers, gait, and stairs 11/07-8-123; knee ext a little worse today 11/21/23: 1-129 deg AROM R, STG Duration 6 weeks GOAL MET 11/21/23 Long-Term Goal (LTG) Pt will increase R knee AROM to at least 1 deg - 120 deg in order to demonstrate improved mobility for transfers, gait, and stairs 11/21/23: GOAL MET 1-129 RLE LTG Duration 12 weeks GOAL MET 11/21/23 Assessment Summary Assessment Continued strengthening exercises this session for progress toward pt goals. Progressed side steps with band at ankle vs at shins, good tolerance, denies pain, verbal cues required for foot clearance. Pt tolerated overall session well with no increases of pain throughout session. Plan to assess pt tolerance next session and progress as able. Physical Therapy Plan Frequency and Duration Frequency of Treatment 1-2x/wk Duration of treatment (weeks) 12 Plan of Care Start Date 10/10/23 Plan of Care End Date 01/06/24 Therapeutic Interventions Therapeutic Interventions Balance Training,Gait Training ,Home Exercise Program,Joint Mobilizations,Manual Therapy, Neuromuscular Re-education, Orthotic/Prosthetic Management ,Patient/Caregiver Education, Self-Care/Home Management, Sensory Integration,Soft Tissue Mobilization,Taping, Therapeutic Activities, Therapeutic Exercises Modalities Cold Pack/Ice Massage,Hot Packs,Vasopneumatic Devices Other Therapeutic Interventions no e-stim due to pacemaker Next Visit Focus/Plan Next Note Type Treatment Note Next Visit Plan REcheck SPC in RUE/ pattern with LLE, improvement DF LLE. Start with a 6MWT warm up next tx. POC: work on bike use for increasing home use and comfort, focus on ext and quad strength; work on gait w/foot clearance
--- NOTE | 2023-11-28 11:59 | PT-OP ANOTE ---
VM left re: no show policy and asked to call back re: no show and importance of attending appts for recovery from knee surgery and that we will have to DC if he is not able to make it to appts on time.
--- NOTE | 2023-11-30 10:15 | PT-OP ANOTE ---
Addendum entered and electronically signed by Janeen Oneill, PT 11/30/23 16:16: Talked to son this PM and confirmed appt on 11/30 Original Note: Called to remind of appt 11/30 and she asked to call son who is listed in chart. Son called and VM left re: no show policy and to call if pt unable to attend this appt.
--- NOTE | 2023-12-01 14:50 | PT.OTN ---
Current Diagnoses Unilateral primary osteoarthritis, right knee (12/01/23) Stiffness of right knee, not elsewhere classified (12/01/23) Other lack of coordination (12/01/23) Weakness (12/01/23) Encounter for other preprocedural examination (12/01/23) Physical Therapy Treatment Note PT-OP-A Visit Information Start: 09/21/23 17:54 Freq: Status: Active Protocol: Document 12/01/23 13:02 LR (Rec: 12/01/23 13:35 [facility] [id number]) Out-Patient Physical Therapy Visit Information Visit Information Visit Type Progress Note Visit Note KX after 19 visits Ors 02/23 after PN Visit Start Time 13:03 Visit Stop Time 13:43 Visit Number 13 Number of AIR HOIST OPERATOR Visits 0 PT-OP-B Current Condition Start: 09/21/23 17:54 Freq: Status: Active Protocol: Document 10/10/23 13:47 NM (Rec: 10/10/23 15:09 NM [id number]) Current Condition History of Current Condition Onset Date DOS 09/29/23; chronic knee pain Current Complaints pain, limited mobility History of Current Condition Pt presents with R knee pain s /p partial TKA on 09/29/23. Dr. Still performed the surgery. States medial portion of knee was replaced. Pt is using spc in R hand. He had spinal surgery last year (July 2022), fusion of 3 vertebrae. He continues to have pain in his spine and neural symptoms ( reports tingling) in R thigh to R toes, but states that he no longer has spinal precautions. He did have PT following the surgery, but states it was minimal and not helpful. He had L TKA 2015 with good results. He has follow up with Dr. Still on Tuesday, 10/12. Prior to surgery , pt was using his spc ( baseline), primarily for balance. He is also using a 4WW at house (ground floor), uses spc outside (easier due to car). Pt lives with his , Mariann, who helped provide hx. They live in a house with an elevator, with 20 stairs (rails- B); however, pt does not use the stairs. Pt reports that his knee has been hurting since at least 1 year pre-op, before his back started to hurt. Pt had a cortisone shot prior to surgery. Pt had a fall back in January 2022, which is what originally injured his back. No falls since surgery. Pt has PMH of Afib, pacemaker. Pt reports sciatica in his RLE- thigh. Wearing compression stockings Prior Treatments and Tests previous lumbar fusion L3-L5 in 07/2022 Treatment Goals Patient/Caregiver Goals to get better again, to reduce pain, improve mobility Prior Functional Status Baseline Function- ADL's Independent Baseline Function- Mobility Independent Baseline Function- Gait ambulation around [place] Baseline Function- Recreation/Hobbies bicycling (stationary), hiking Current Functional Impairments (Reported) Functional Limitations- ADL's no difficulty with dressing walk in shower w/ grab bars, reports no difficulty Functional Limitations- Mobility/Gait currently unable to ambulate around the block WB Functional Limitations- Other pt reports pain with transfers to/from toilet- back and knee PT-OP-C Subjective Start: 09/21/23 17:54 Freq: Status: Active Protocol: Document 12/01/23 13:02 [facility] (Rec: 12/01/23 13:35 [facility] [id number]) OP-PT Subjective Patient Comments Patient Comments Pt reports he feels like his knee is coming along PT-OP-E Functional Tests Start: 10/10/23 15:18 Freq: Status: Active Protocol: Document 12/01/23 13:02 [facility] (Rec: 12/01/23 13:36 [facility] [id number]) Functional Tests 6 Minute Walk Test Distance 612ft Five Times Sit to Stand Test Score 51 sec no hands PT-OP-F Manual Assessment Start: 09/21/23 17:54 Freq: Status: Active Protocol: Document 10/10/23 13:47 NM (Rec: 10/10/23 15:09 NM [id number]) Manual Assessments Soft Tissue Assessment Soft Tissue Mobility Assessment Restrictions of R hamstring and quad limiting ROM, decreased heel cord length B Joint Mobility Assessment Joint Mobility Assessment Empty end feel with PROM to pt tolerance PT-OP-G Mobility & Gait Start: 09/21/23 17:54 Freq: Status: Active Protocol: Document 10/10/23 13:47 NM (Rec: 10/10/23 15:09 NM [id number]) OP Mobility Evaluation Bed Mobility Rolling IND Supine to and from Sit IND; demos slight SLR to move RLE on/off table without assist Transfers Sit to Stand close SBA with BUE on chair or 1 UE on spc OP Gait Assessment Gait Gait Assistance Required: Standby Assistance,Contact Guard Assist Distance (Feet) 150 Assistive Devices Assistive Device Gait Belt,Straight Cane Gait Deviations General Gait Pattern Antalgic,Decreased Stride Length,Decreased Feet Clearance Factors Limiting Gait Function Factors Limiting Gait Function Decreased Activity Tolerance, Decreased Sensation,Decreased Strength,Limited Range of Motion,Pain,Poor Balance Comments Gait Comments Demos slight hip ER with RLE, decreased foot clearance and TKE in stance, limited R hip/ knee flexion in swing. Shuffles as fatigues and demos several instances of LOB with CGA to steady as distance increases and fatigues. Pt used to spc in R hand previously PT-OP-H Neuro Start: 10/10/23 15:10 Freq: Status: Active Protocol: Document 10/10/23 13:47 NM (Rec: 10/10/23 15:14 NM [id number]) Sensation Evaluation Comments Summary Comments BLE equally intact to light touch sensation PT-OP-J Posture/Palpation/Skin Start: 10/10/23 15:10 Freq: Status: Active Protocol: Document 10/10/23 13:47 NM (Rec: 10/10/23 15:14 NM [id number]) Posture Evaluation Position Standing Head/C-Spine Posture Forward Head Shoulder Posture (L) Rounded,(R) Rounded Arm Posture (L) Externally Rotated,(R) Externally Rotated Pelvis Posture Anteriorly Tilted Weight Distribution Weight Shifted Left Hip Posture (R) Externally Rotated Knee Posture (L) Genu Valgus,(R) Genu Valgus Palpation Assessment Location R knee Palpation Findings Soft Tissue Tightness Palpation Details Tenderness along medial knee, patella Increased edema at knee > ankle Skin Assessment Circumference Measurement R knee Location measured at patella Measurement (Centimeters) 43 Comments L knee: 40 cm R ankle Location figure 8 Measurement (Centimeters) 54 Comments L ankle: 51.5 cm Incisional Assessment Incision Appearance/Comments Incision is covered by bandage , which is clean, dry, and intact. No signs or symptoms of DVT or infection Other Assessments Skin Assessment Comments RLE is equal temperature and color PT-OP-K Range of Motion Start: 09/21/23 17:54 Freq: Status: Active Protocol: Document 11/21/23 13:05 SP (Rec: 11/21/23 13:51 SP [id number]) Knee Goniometric Range of Motion Knee Right Knee ROM WFL No Patient Position Supine Flexion Passive (degrees) 129 Extension Active (degrees) 1 Comments R knee AROM supine: flexion gained 6 deg, 129 deg extension gain 7 deg, 1 deg Left Knee ROM WFL No Patient Position Supine Flexion Active (degrees) 125 Extension Active (degrees) 1 Comments L knee AROM supine: flexion gained 3 deg, 125 deg extension no change, 1 deg PT-OP-M Strength Start: 09/21/23 17:54 Freq: Status: Active Protocol: Document 12/01/23 13:02 [facility] (Rec: 12/01/23 13:35 [facility] [id number]) Knee Strength Knee Manual Muscle Testing Right Flexion (S2) 4+ Good+ Extension (L3) 4+ Good+ Comments pain w/ext Left Flexion (S2) 4+ Good+ Extension (L3) 4+ Good+ PT-OP-Q Treatments Start: 09/21/23 17:54 Freq: Status: Active Protocol: Document 12/01/23 13:02 [facility] (Rec: 12/01/23 13:35 [facility] [id number]) Cardio Equipment Bicycle (Upright) Duration (Minutes) 4 Resistance 6 Seat Position 6 Gym Equipment Shuttle Recovery Unilateral Squats Details cued not locking into extension Resistance 37#navy Reps/Time x10 each LE Bilateral Squats Details cues to keep knees apart Resistance 75# (3navy) Reps/Time 20 Therapeutic Exercises Sitting Exercises STS Sitting Exercise Name HEP reviewed Resistance no UE (last 3 of 2nd set w/ hands) Reps/Minutes 2x5 Standing Exercises toe raises Standing Exercise Name back to wall/rail- reviewed HEP Side bilateral Resistance AROM Reps/Minutes 2x10 reps Comments good tiring effort heel raises Standing Exercise Name DL heel raises Side bilateral Equipment Used rail Reps/Minutes 20 side steps Side bilateral Resistance leve 1 band at ankle Equipment Used 1 rail support Reps/Minutes 20ft ea Comments cues lifting feet and posture Other Exercises 6 minwalk Reps/Minutes 612ft Self-Care/Home Management Treatment Activities Self-Care/Home Management Activities 129/79; 80 HR, 96% O2 PT-OP-T Assessment and Plan Start: 09/21/23 17:54 Freq: Status: Active Protocol: Document 12/01/23 13:02 [facility] (Rec: 12/01/23 13:35 [facility] [id number]) Physical Therapy Assessment Goals Four Impairment STS Short Term Goal (STG) Pt will be able to perform at least 10 STS to LRAD and no increase in R knee pain with transfer in order to demonstrate improved BLE strength for bathroom transfers 11/07-inc knee pain -can if uses hands 11/30-still inc pain STG Duration 4 weeks Bench Worker Apprentice Goal (LTG) Pt will be able to perform 5x STS within age-related norms in order to demonstrate improved BLE strength for transfers and gait 11/07-39 sec for 4 11/30-5 in 51 sec LTG Duration 12 weeks Three Impairment 2 MWT distance 148 ft with spc Short Term Goal (STG) Pt will normalize gait mechanics with LRAD and no pain in R knee with WB in order for pt to return to daily walks around his neighborhood 11/07-has been walking around neighborhood w/walker;225ft w/ SPC w/5/10 pain STG Duration achieved Bench Worker Apprentice Goal (LTG) Pt will be able to complete 6 MWT with LRAD and no increase in R knee pain with WB in order for pt to return to daily ambulation within community gant 11/30-able to complete w/med knee pain 3/10 LTG Duration 12 weeks Two Impairment strength R knee 3/5 Short Term Goal (STG) Pt will improve R knee flexion and extension strength to at least 4-/5 in order to demonstrate increased strength for gait, transfers STG Duration achieved 11/07 Residential Goal (LTG) Pt will improve R knee flexion and extension strength to at least 4+/5 in order to demonstrate increased strength for gait, transfers 11/07-achieved flex, weaknesss w/ext LTG Duration achieved 11/30 One Impairment R knee AROM lacking 10 - 112 deg Short Term Goal (STG) Pt will improve R knee AROM to at least lacking 5 deg - 118 deg in order to demonstrate improved mobility for transfers, gait, and stairs 11/07-8-123; knee ext a little worse today 11/21/23: 1-129 deg AROM R, STG Duration 6 weeks GOAL MET 11/21/23 Residential Goal (LTG) Pt will increase R knee AROM to at least 1 deg - 120 deg in order to demonstrate improved mobility for transfers, gait, and stairs 11/21/23: GOAL MET 1-129 RLE LTG Duration 12 weeks GOAL MET 11/21/23 Assessment Summary Assessment Pt overall making good progress with PT but still noting some R Knee pain and there is still notable gait deviations along w/ dec balance. COnt PT to work on more stability and strength through LE and balance. Physical Therapy Plan Frequency and Duration Frequency of Treatment 1-2x/wk Duration of treatment (weeks) 12 Plan of Care Start Date 10/10/23 Plan of Care End Date 01/06/24 Therapeutic Interventions Therapeutic Interventions Balance Training,Gait Training ,Home Exercise Program,Joint Mobilizations,Manual Therapy, Neuromuscular Re-education, Orthotic/Prosthetic Management ,Patient/Caregiver Education, Self-Care/Home Management, Sensory Integration,Soft Tissue Mobilization,Taping, Therapeutic Activities, Therapeutic Exercises Modalities Cold Pack/Ice Massage,Hot Packs,Vasopneumatic Devices Other Therapeutic Interventions no e-stim due to pacemaker Next Visit Focus/Plan Next Note Type Treatment Note Next Visit Plan work on strength and balance for gait and stability
--- NOTE | 2023-12-08 13:14 | PT-OP ANOTE ---
missed appointment as she just got back from [place] yesterday and had timing messed up. Asked to reschedule to the next day. Reminded about no show policy.
--- NOTE | 2023-12-09 10:42 | PT.OTN ---
Current Diagnoses Unilateral primary osteoarthritis, right knee (12/09/23) Stiffness of right knee, not elsewhere classified (12/09/23) Other lack of coordination (12/09/23) Weakness (12/09/23) Encounter for other preprocedural examination (12/09/23) Physical Therapy Treatment Note PT-OP-A Visit Information Start: 09/21/23 17:54 Freq: Status: Active Protocol: Document 12/09/23 09:48 NM (Rec: 12/09/23 10:42 NM [id number]) Out-Patient Physical Therapy Visit Information Visit Information Visit Type Treatment Note Visit Note KX after 19 visits Ors 2/10 after PN Visit Start Time 09:48 Visit Stop Time 10:30 Visit Number 14 Precautions Precautions pacemaker, Afib; hx high blood pressure; fall risk -KNIK L worse than R (has hearing aids) PT-OP-B Current Condition Start: 09/21/23 17:54 Freq: Status: Active Protocol: Document 10/10/23 13:47 NM (Rec: 10/10/23 15:09 NM [id number]) Current Condition History of Current Condition Onset Date DOS 09/29/23; chronic knee pain Current Complaints pain, limited mobility History of Current Condition Pt presents with R knee pain s /p partial TKA on 09/29/23. Dr. Still performed the surgery. States medial portion of knee was replaced. Pt is using spc in R hand. He had spinal surgery last year (July 2022), fusion of 3 vertebrae. He continues to have pain in his spine and neural symptoms ( reports tingling) in R thigh to R toes, but states that he no longer has spinal precautions. He did have PT following the surgery, but states it was minimal and not helpful. He had L TKA 2015 with good results. He has follow up with Dr. Still on Tuesday, 10/12. Prior to surgery , pt was using his spc ( baseline), primarily for balance. He is also using a 4WW at house (ground floor), uses spc outside (easier due to car). Pt lives with his , Mariann, who helped provide hx. They live in a house with an elevator, with 20 stairs (rails- B); however, pt does not use the stairs. Pt reports that his knee has been hurting since at least 1 year pre-op, before his back started to hurt. Pt had a cortisone shot prior to surgery. Pt had a fall back in January 2022, which is what originally injured his back. No falls since surgery. Pt has PMH of Afib, pacemaker. Pt reports sciatica in his RLE- thigh. Wearing compression stockings Prior Treatments and Tests previous lumbar fusion L3-L5 in 07/2022 Treatment Goals Patient/Caregiver Goals to get better again, to reduce pain, improve mobility Prior Functional Status Baseline Function- ADL's Independent Baseline Function- Mobility Independent Baseline Function- Gait ambulation around [place] Baseline Function- Recreation/Hobbies bicycling (stationary), hiking Current Functional Impairments (Reported) Functional Limitations- ADL's no difficulty with dressing walk in shower w/ grab bars, reports no difficulty Functional Limitations- Mobility/Gait currently unable to ambulate around the block WB Functional Limitations- Other pt reports pain with transfers to/from toilet- back and knee PT-OP-C Subjective Start: 09/21/23 17:54 Freq: Status: Active Protocol: Document 12/09/23 09:48 NM (Rec: 12/09/23 10:42 NM [id number]) OP-PT Subjective Patient Comments Patient Comments Reports knees are on the mend , states does not bother him as much. R knee 2/10 pain. He is walking around the block now, 3x (10 min for 1 lap). Reports that he has too many exercises. States that his back is just bothering him more, planning to find new back surgeon. PT-OP-E Functional Tests Start: 10/10/23 15:18 Freq: Status: Active Protocol: Document 12/01/23 13:02 [facility] (Rec: 12/01/23 13:36 [facility] [id number]) Functional Tests 6 Minute Walk Test Distance 612ft Five Times Sit to Stand Test Score 51 sec no hands PT-OP-F Manual Assessment Start: 09/21/23 17:54 Freq: Status: Active Protocol: Document 10/10/23 13:47 NM (Rec: 10/10/23 15:09 NM [id number]) Manual Assessments Soft Tissue Assessment Soft Tissue Mobility Assessment Restrictions of R hamstring and quad limiting ROM, decreased heel cord length B Joint Mobility Assessment Joint Mobility Assessment Empty end feel with PROM to pt tolerance PT-OP-G Mobility & Gait Start: 09/21/23 17:54 Freq: Status: Active Protocol: Document 10/10/23 13:47 NM (Rec: 10/10/23 15:09 NM [id number]) OP Mobility Evaluation Bed Mobility Rolling IND Supine to and from Sit IND; demos slight SLR to move RLE on/off table without assist Transfers Sit to Stand close SBA with BUE on chair or 1 UE on spc OP Gait Assessment Gait Gait Assistance Required: Standby Assistance,Contact Guard Assist Distance (Feet) 150 Assistive Devices Assistive Device Gait Belt,Straight Cane Gait Deviations General Gait Pattern Antalgic,Decreased Stride Length,Decreased Feet Clearance Factors Limiting Gait Function Factors Limiting Gait Function Decreased Activity Tolerance, Decreased Sensation,Decreased Strength,Limited Range of Motion,Pain,Poor Balance Comments Gait Comments Demos slight hip ER with RLE, decreased foot clearance and TKE in stance, limited R hip/ knee flexion in swing. Shuffles as fatigues and demos several instances of LOB with CGA to steady as distance increases and fatigues. Pt used to spc in R hand previously PT-OP-H Neuro Start: 10/10/23 15:10 Freq: Status: Active Protocol: Document 10/10/23 13:47 NM (Rec: 10/10/23 15:14 NM [id number]) Sensation Evaluation Comments Summary Comments BLE equally intact to light touch sensation PT-OP-J Posture/Palpation/Skin Start: 10/10/23 15:10 Freq: Status: Active Protocol: Document 10/10/23 13:47 NM (Rec: 10/10/23 15:14 NM [id number]) Posture Evaluation Position Standing Head/C-Spine Posture Forward Head Shoulder Posture (L) Rounded,(R) Rounded Arm Posture (L) Externally Rotated,(R) Externally Rotated Pelvis Posture Anteriorly Tilted Weight Distribution Weight Shifted Left Hip Posture (R) Externally Rotated Knee Posture (L) Genu Valgus,(R) Genu Valgus Palpation Assessment Location R knee Palpation Findings Soft Tissue Tightness Palpation Details Tenderness along medial knee, patella Increased edema at knee > ankle Skin Assessment Circumference Measurement R knee Location measured at patella Measurement (Centimeters) 43 Comments L knee: 40 cm R ankle Location figure 8 Measurement (Centimeters) 54 Comments L ankle: 51.5 cm Incisional Assessment Incision Appearance/Comments Incision is covered by bandage , which is clean, dry, and intact. No signs or symptoms of DVT or infection Other Assessments Skin Assessment Comments RLE is equal temperature and color PT-OP-K Range of Motion Start: 09/21/23 17:54 Freq: Status: Active Protocol: Document 11/21/23 13:05 SP (Rec: 11/21/23 13:51 SP [id number]) Knee Goniometric Range of Motion Knee Right Knee ROM WFL No Patient Position Supine Flexion Passive (degrees) 129 Extension Active (degrees) 1 Comments R knee AROM supine: flexion gained 6 deg, 129 deg extension gain 7 deg, 1 deg Left Knee ROM WFL No Patient Position Supine Flexion Active (degrees) 125 Extension Active (degrees) 1 Comments L knee AROM supine: flexion gained 3 deg, 125 deg extension no change, 1 deg PT-OP-M Strength Start: 09/21/23 17:54 Freq: Status: Active Protocol: Document 12/01/23 13:02 [facility] (Rec: 12/01/23 13:35 [facility] [id number]) Knee Strength Knee Manual Muscle Testing Right Flexion (S2) 4+ Good+ Extension (L3) 4+ Good+ Comments pain w/ext Left Flexion (S2) 4+ Good+ Extension (L3) 4+ Good+ PT-OP-Q Treatments Start: 09/21/23 17:54 Freq: Status: Active Protocol: Document 12/09/23 09:48 NM (Rec: 12/09/23 10:42 NM [id number]) Cardio Equipment Bicycle (Upright) Duration (Minutes) 5 Resistance 6 Seat Position 7 Other warm up Gym Equipment Shuttle Recovery Unilateral Squats Details cued not locking into extension; knee align w/ toes Resistance 37#navy > 50# (1 navy) Reps/Time 20 ea leg Therapeutic Exercises Standing Exercises side steps Side bilateral Resistance level 1 band at ankle Equipment Used 1 rail support Reps/Minutes 20ft ea Comments cues lifting feet and posture, demos inc trunk lean w/ inc clearance Neuro Re-Education Treatment Balance Activities resisted stepping Details green bungee Surface stable Equipment CGA Reps/Duration 5 ea direction -requires increased time Comments 1. fwd 2. lateral, ea direction 3. bwd Cueing for posture, foot clearance. no spc use. fwd with post resistance most challenging, - 1 stumble w/ LOB and no fall- min A to stabilize ball toss Details for anticipatory and reactive balance Equipment blue monegasque ball Reps/Duration 10 ea- requires increased time Comments 1. normal RY 2. wide RY 3. Narrow RY 4. staggered stance, ea foot 5. on foam foam Equipment prn CGA Reps/Duration 60 Comments stance for time looking ahead. cued for weight shifting, upright posture, foot placement for safety hurdles Equipment 1 finger support, CGA Reps/Duration 2 sets ea Comments 1. fwd reciprocal 2. lateral clips several hurdles, 1 instance of stumble with fwd hurdles. Demos trunk and hip truning iwth lateral hurdles. cued for form, decreasd visual input PT-OP-T Assessment and Plan Start: 09/21/23 17:54 Freq: Status: Active Protocol: Document 12/09/23 09:48 NM (Rec: 12/09/23 10:42 NM [id number]) Physical Therapy Assessment Goals Four Impairment STS Short Term Goal (STG) Pt will be able to perform at least 10 STS to LRAD and no increase in R knee pain with transfer in order to demonstrate improved BLE strength for bathroom transfers 11/07-inc knee pain -can if uses hands 11/30-still inc pain STG Duration 4 weeks [facility] Goal (LTG) Pt will be able to perform 5x STS within age-related norms in order to demonstrate improved BLE strength for transfers and gait 11/07-39 sec for 4 11/30-5 in 51 sec LTG Duration 12 weeks Three Impairment 2 MWT distance 148 ft with spc Short Term Goal (STG) Pt will normalize gait mechanics with LRAD and no pain in R knee with WB in order for pt to return to daily walks around his neighborhood 11/07-has been walking around neighborhood w/walker;225ft w/ SPC w/5/10 pain STG Duration achieved [employer] Goal (LTG) Pt will be able to complete 6 MWT with LRAD and no increase in R knee pain with WB in order for pt to return to daily ambulation within community gant 11/30-able to complete w/med knee pain 310 LTG Duration 12 weeks Two Impairment strength R knee 3/5 Short Term Goal (STG) Pt will improve R knee flexion and extension strength to at least 4-/5 in order to demonstrate increased strength for gait, transfers STG Duration achieved 11/07 [employer] Goal (LTG) Pt will improve R knee flexion and extension strength to at least 4+/5 in order to demonstrate increased strength for gait, transfers 11/07-achieved flex, weaknesss w/ext LTG Duration achieved 11/30 One Impairment R knee AROM lacking 10 - 112 deg Short Term Goal (STG) Pt will improve R knee AROM to at least lacking 5 deg - 118 deg in order to demonstrate improved mobility for transfers, gait, and stairs 11/07-8-123; knee ext a little worse today 11/21/23: 1-129 deg AROM R, STG Duration 6 weeks GOAL MET 11/21/23 [facility] Goal (LTG) Pt will increase R knee AROM to at least 1 deg - 120 deg in order to demonstrate improved mobility for transfers, gait, and stairs 11/21/23: GOAL MET 1-129 RLE LTG Duration 12 weeks GOAL MET 11/21/23 Assessment Summary Assessment Pt reports no increase in R knee pain or back pain following session. Able to progress resistance with single leg squat. Requires moderate cueing for knee alignment to limit knee valgus . Focused on trunk control and reactionary balance during all balance activities. Tends to lean L. Two instances of stumbles with hurdles and resisted stepping with bungee, one requires min A from PT to prevent fall. Pt would benefit from skilled PT for progressive strengthening and balance training to reduce fall risk and improve stability during functional mobility Physical Therapy Plan Frequency and Duration Frequency of Treatment 1-2x/wk Duration of treatment (weeks) 12 Plan of Care Start Date 10/10/23 Plan of Care End Date 01/06/24 Therapeutic Interventions Therapeutic Interventions Balance Training,Gait Training ,Home Exercise Program,Joint Mobilizations,Manual Therapy, Neuromuscular Re-education, Orthotic/Prosthetic Management ,Patient/Caregiver Education, Self-Care/Home Management, Sensory Integration,Soft Tissue Mobilization,Taping, Therapeutic Activities, Therapeutic Exercises Modalities Cold Pack/Ice Massage,Hot Packs,Vasopneumatic Devices Other Therapeutic Interventions no e-stim due to pacemaker Next Visit Focus/Plan Next Note Type Treatment Note Next Visit Plan work on strength and balance for gait and stability Assess josep to inc resistance on uni squat. cont with STS, functional strength and balance, trunk control and safety
--- NOTE | 2023-12-15 15:26 | PT.OTN ---
Current Diagnoses Unilateral primary osteoarthritis, right knee (12/15/23) Stiffness of right knee, not elsewhere classified (12/15/23) Other lack of coordination (12/15/23) Weakness (12/15/23) Encounter for other preprocedural examination (12/15/23) Physical Therapy Treatment Note PT-OP-A Visit Information Start: 09/21/23 17:54 Freq: Status: Active Protocol: Document 12/15/23 14:32 NM (Rec: 12/15/23 15:26 NM [id number]) Out-Patient Physical Therapy Visit Information Visit Information Visit Type Treatment Note Visit Note KX after 19 visits Ors 310 post PN Visit Start Time 14:33 Visit Stop Time 15:15 Visit Number 15 PT-OP-B Current Condition Start: 09/21/23 17:54 Freq: Status: Active Protocol: Document 10/10/23 13:47 NM (Rec: 10/10/23 15:09 NM [id number]) Current Condition History of Current Condition Onset Date DOS 09/29/23; chronic knee pain Current Complaints pain, limited mobility History of Current Condition Pt presents with R knee pain s /p partial TKA on 09/29/23. Dr. Still performed the surgery. States medial portion of knee was replaced. Pt is using spc in R hand. He had spinal surgery last year (July 2022), fusion of 3 vertebrae. He continues to have pain in his spine and neural symptoms ( reports tingling) in R thigh to R toes, but states that he no longer has spinal precautions. He did have PT following the surgery, but states it was minimal and not helpful. He had L TKA 2015 with good results. He has follow up with Dr. Still on Tuesday, 10/12. Prior to surgery , pt was using his spc ( baseline), primarily for balance. He is also using a 4WW at house (ground floor), uses spc outside (easier due to car). Pt lives with his , Mariann, who helped provide hx. They live in a house with an elevator, with 20 stairs (rails- B); however, pt does not use the stairs. Pt reports that his knee has been hurting since at least 1 year pre-op, before his back started to hurt. Pt had a cortisone shot prior to surgery. Pt had a fall back in January 2022, which is what originally injured his back. No falls since surgery. Pt has PMH of Afib, pacemaker. Pt reports sciatica in his RLE- thigh. Wearing compression stockings Prior Treatments and Tests previous lumbar fusion L3-L5 in 07/2022 Treatment Goals Patient/Caregiver Goals to get better again, to reduce pain, improve mobility Prior Functional Status Baseline Function- ADL's Independent Baseline Function- Mobility Independent Baseline Function- Gait ambulation around [place] Baseline Function- Recreation/Hobbies bicycling (stationary), hiking Current Functional Impairments (Reported) Functional Limitations- ADL's no difficulty with dressing walk in shower w/ grab bars, reports no difficulty Functional Limitations- Mobility/Gait currently unable to ambulate around the block WB Functional Limitations- Other pt reports pain with transfers to/from toilet- back and knee PT-OP-C Subjective Start: 09/21/23 17:54 Freq: Status: Active Protocol: Document 12/15/23 14:32 NM (Rec: 12/15/23 15:26 NM [id number]) OP-PT Subjective Patient Comments Patient Comments Pt reports that he has occasional knee pain. Always back pain. Trying to reduce the amount of painkillers PT-OP-E Functional Tests Start: 10/10/23 15:18 Freq: Status: Active Protocol: Document 12/01/23 13:02 [facility] (Rec: 12/01/23 13:36 [facility] [id number]) Functional Tests 6 Minute Walk Test Distance 612ft Five Times Sit to Stand Test Score 51 sec no hands PT-OP-F Manual Assessment Start: 09/21/23 17:54 Freq: Status: Active Protocol: Document 10/10/23 13:47 NM (Rec: 10/10/23 15:09 NM [id number]) Manual Assessments Soft Tissue Assessment Soft Tissue Mobility Assessment Restrictions of R hamstring and quad limiting ROM, decreased heel cord length B Joint Mobility Assessment Joint Mobility Assessment Empty end feel with PROM to pt tolerance PT-OP-G Mobility & Gait Start: 09/21/23 17:54 Freq: Status: Active Protocol: Document 10/10/23 13:47 NM (Rec: 10/10/23 15:09 NM [id number]) OP Mobility Evaluation Bed Mobility Rolling IND Supine to and from Sit IND; demos slight SLR to move RLE on/off table without assist Transfers Sit to Stand close SBA with BUE on chair or 1 UE on spc OP Gait Assessment Gait Gait Assistance Required: Standby Assistance,Contact Guard Assist Distance (Feet) 150 Assistive Devices Assistive Device Gait Belt,Straight Cane Gait Deviations General Gait Pattern Antalgic,Decreased Stride Length,Decreased Feet Clearance Factors Limiting Gait Function Factors Limiting Gait Function Decreased Activity Tolerance, Decreased Sensation,Decreased Strength,Limited Range of Motion,Pain,Poor Balance Comments Gait Comments Demos slight hip ER with RLE, decreased foot clearance and TKE in stance, limited R hip/ knee flexion in swing. Shuffles as fatigues and demos several instances of LOB with CGA to steady as distance increases and fatigues. Pt used to spc in R hand previously PT-OP-H Neuro Start: 10/10/23 15:10 Freq: Status: Active Protocol: Document 10/10/23 13:47 NM (Rec: 10/10/23 15:14 NM [id number]) Sensation Evaluation Comments Summary Comments BLE equally intact to light touch sensation PT-OP-J Posture/Palpation/Skin Start: 10/10/23 15:10 Freq: Status: Active Protocol: Document 10/10/23 13:47 NM (Rec: 10/10/23 15:14 NM [id number]) Posture Evaluation Position Standing Head/C-Spine Posture Forward Head Shoulder Posture (L) Rounded,(R) Rounded Arm Posture (L) Externally Rotated,(R) Externally Rotated Pelvis Posture Anteriorly Tilted Weight Distribution Weight Shifted Left Hip Posture (R) Externally Rotated Knee Posture (L) Genu Valgus,(R) Genu Valgus Palpation Assessment Location R knee Palpation Findings Soft Tissue Tightness Palpation Details Tenderness along medial knee, patella Increased edema at knee > ankle Skin Assessment Circumference Measurement R knee Location measured at patella Measurement (Centimeters) 43 Comments L knee: 40 cm R ankle Location figure 8 Measurement (Centimeters) 54 Comments L ankle: 51.5 cm Incisional Assessment Incision Appearance/Comments Incision is covered by bandage , which is clean, dry, and intact. No signs or symptoms of DVT or infection Other Assessments Skin Assessment Comments RLE is equal temperature and color PT-OP-K Range of Motion Start: 09/21/23 17:54 Freq: Status: Active Protocol: Document 12/15/23 14:32 NM (Rec: 12/15/23 15:26 NM [id number]) Knee Goniometric Range of Motion Knee Right Knee ROM WFL No Patient Position Supine Flexion Passive (degrees) 129 Extension Active (degrees) 1 Comments R knee AROM supine: flexion gained 6 deg, 129 deg extension gain 7 deg, 1 deg Left Knee ROM WFL No Patient Position Supine Flexion Active (degrees) 125 Extension Active (degrees) 1 Comments L knee AROM supine: flexion gained 3 deg, 125 deg extension no change, 1 deg PT-OP-M Strength Start: 09/21/23 17:54 Freq: Status: Active Protocol: Document 12/15/23 14:32 NM (Rec: 12/15/23 15:26 NM [id number]) Knee Strength Knee Manual Muscle Testing Right Flexion (S2) 4+ Good+ Extension (L3) 4+ Good+ Comments pain w/ext Left Flexion (S2) 4+ Good+ Extension (L3) 4+ Good+ PT-OP-Q Treatments Start: 09/21/23 17:54 Freq: Status: Active Protocol: Document 12/15/23 14:32 NM (Rec: 12/15/23 15:26 NM [id number]) Therapeutic Exercises Sitting Exercises LAQ Sitting Exercise Name LAQ reviewed HEP Side bilateral Resistance level 2 band Equipment Used kick to therapist hand target for TKE Reps/Minutes 15 ea Comments cued TKE; challenging but not painful Standing Exercises step ups Standing Exercise Name 1. fwd, 2. lateral Side bilateral Equipment Used 6 in step w/1 rail Reps/Minutes 15 ea- close SBA Comments cues full knee ext & pelvis under Other Exercises 6 minwalk Equipment Used spc Reps/Minutes 835 ft Neuro Re-Education Treatment Balance Activities NBOS Details no AD Surface stable Comments 1. semi-tandem stepping, 2x10 ft 2. retro stepping, 2x10 ft 3. semi-tandem stance w/ perturbation from PT Demos increased fwd trunk lean with retro step, cueing for tall posture w/ verbal/tactile cues blue pillow Comments 1. alt step taps fwd 2. lateral step taps 3. ball toss chest pass 4. ball toos overhead pass 5. head turns Stepping reaction off pillow, mod A from PT to correct PT-OP-T Assessment and Plan Start: 09/21/23 17:54 Freq: Status: Active Protocol: Document 12/15/23 14:32 NM (Rec: 12/15/23 15:26 NM [id number]) Physical Therapy Assessment Goals Four Impairment STS Short Term Goal (STG) Pt will be able to perform at least 10 STS to LRAD and no increase in R knee pain with transfer in order to demonstrate improved BLE strength for bathroom transfers 11/07-inc knee pain -can if uses hands 11/30-still inc pain STG Duration 4 weeks Fpc Goal (LTG) Pt will be able to perform 5x STS within age-related norms in order to demonstrate improved BLE strength for transfers and gait 11/07-39 sec for 4 11/30-5 in 51 sec LTG Duration 12 weeks Three Impairment 2 MWT distance 148 ft with spc Short Term Goal (STG) Pt will normalize gait mechanics with LRAD and no pain in R knee with WB in order for pt to return to daily walks around his neighborhood 11/07-has been walking around neighborhood w/walker;225ft w/ SPC w/5/10 pain STG Duration achieved Fpc Goal (LTG) Pt will be able to complete 6 MWT with LRAD and no increase in R knee pain with WB in order for pt to return to daily ambulation within community gant 11/30-able to complete w/med knee pain 04/2312/15/23: 835 ft with spc, reports knee pain, 10 knee pain LTG Duration 12 weeks Two Impairment strength R knee 3/5 Short Term Goal (STG) Pt will improve R knee flexion and extension strength to at least 4-/5 in order to demonstrate increased strength for gait, transfers STG Duration achieved 11/07 [employer] Goal (LTG) Pt will improve R knee flexion and extension strength to at least 4+/5 in order to demonstrate increased strength for gait, transfers 11/07-achieved flex, weaknesss w/ext LTG Duration achieved 11/30 One Impairment R knee AROM lacking 10 - 112 deg Short Term Goal (STG) Pt will improve R knee AROM to at least lacking 5 deg - 118 deg in order to demonstrate improved mobility for transfers, gait, and stairs 11/07-8-123; knee ext a little worse today 11/21/23: 1-129 deg AROM R, STG Duration 6 weeks GOAL MET 11/21/23 Fpc Goal (LTG) Pt will increase R knee AROM to at least 1 deg - 120 deg in order to demonstrate improved mobility for transfers, gait, and stairs 11/21/23: GOAL MET 1-129 RLE LTG Duration 12 weeks GOAL MET 11/21/23 Assessment Summary Assessment Continued with addressing pt balance and functional quad/ glute strength for improved mobility. Progressed resistance band for LAQ and trialed lateral step ups with 1 hand support. Still needs cues for safety awareness on stairs and all unstable surfaces. Pt has 1 instance LOB with stepping response and mod A from PT to correct. Better reaction times and anticipatory weight shifts today. Blue pillow challenging unstable surface, very dependent on visual feedback and decreased awareness of position in space. Ambulated further on 6MWT but still demos notable gait deviations with AD. Pt would benefit from skilled PT for progressive strengthening and balance training to decrease fall risk and improve independence with mobility. Physical Therapy Plan Frequency and Duration Frequency of Treatment 1-2x/wk Duration of treatment (weeks) 12 Plan of Care Start Date 10/10/23 Plan of Care End Date 01/06/24 Therapeutic Interventions Therapeutic Interventions Balance Training,Gait Training ,Home Exercise Program,Joint Mobilizations,Manual Therapy, Neuromuscular Re-education, Orthotic/Prosthetic Management ,Patient/Caregiver Education, Self-Care/Home Management, Sensory Integration,Soft Tissue Mobilization,Taping, Therapeutic Activities, Therapeutic Exercises Modalities Cold Pack/Ice Massage,Hot Packs,Vasopneumatic Devices Other Therapeutic Interventions no e-stim due to pacemaker Next Visit Focus/Plan Next Note Type Treatment Note Next Visit Plan work on strength and balance for gait and stability Cont with STS, functional strength and balance, trunk control and safety. Condense or progress HEP if brings to session. plan to d/c in 3 visits
--- NOTE | 2023-12-22 13:45 | PT.OTN ---
Current Diagnoses Unilateral primary osteoarthritis, right knee (12/22/23) Stiffness of right knee, not elsewhere classified (12/22/23) Other lack of coordination (12/22/23) Weakness (12/22/23) Encounter for other preprocedural examination (12/22/23) Physical Therapy Treatment Note PT-OP-A Visit Information Start: 09/21/23 17:54 Freq: Status: Active Protocol: Document 12/22/23 13:01 SP (Rec: 12/22/23 13:48 SP [id number]) Out-Patient Physical Therapy Visit Information Visit Information Visit Type Treatment Note Visit Note KX after 19 visits Ors 4/10 post PN Visit Start Time 13:01 Visit Stop Time 13:45 Visit Number 16 Number of [employer] Visits 1 Evaluation Information Evaluation Date 10/10/23 Precautions Precautions pacemaker, Afib; hx high blood pressure; fall risk -[place] L worse than R (has hearing aids) PT-OP-B Current Condition Start: 09/21/23 17:54 Freq: Status: Active Protocol: Document 10/10/23 13:47 NM (Rec: 10/10/23 15:09 NM [id number]) Current Condition History of Current Condition Onset Date DOS 09/29/23; chronic knee pain Current Complaints pain, limited mobility History of Current Condition Pt presents with R knee pain s /p partial TKA on 09/29/23. Dr. Still performed the surgery. States medial portion of knee was replaced. Pt is using spc in R hand. He had spinal surgery last year (July 2022), fusion of 3 vertebrae. He continues to have pain in his spine and neural symptoms ( reports tingling) in R thigh to R toes, but states that he no longer has spinal precautions. He did have PT following the surgery, but states it was minimal and not helpful. He had L TKA 2015 with good results. He has follow up with Dr. Still on Tuesday, 10/12. Prior to surgery , pt was using his spc ( baseline), primarily for balance. He is also using a 4WW at house (ground floor), uses spc outside (easier due to car). Pt lives with his , Mariann, who helped provide hx. They live in a house with an elevator, with 20 stairs (rails- B); however, pt does not use the stairs. Pt reports that his knee has been hurting since at least 1 year pre-op, before his back started to hurt. Pt had a cortisone shot prior to surgery. Pt had a fall back in January 2022, which is what originally injured his back. No falls since surgery. Pt has PMH of Afib, pacemaker. Pt reports sciatica in his RLE- thigh. Wearing compression stockings Prior Treatments and Tests previous lumbar fusion L3-L5 in 07/2022 Treatment Goals Patient/Caregiver Goals to get better again, to reduce pain, improve mobility Prior Functional Status Baseline Function- ADL's Independent Baseline Function- Mobility Independent Baseline Function- Gait ambulation around [place] Baseline Function- Recreation/Hobbies bicycling (stationary), hiking Current Functional Impairments (Reported) Functional Limitations- ADL's no difficulty with dressing walk in shower w/ grab bars, reports no difficulty Functional Limitations- Mobility/Gait currently unable to ambulate around the block WB Functional Limitations- Other pt reports pain with transfers to/from toilet- back and knee PT-OP-C Subjective Start: 09/21/23 17:54 Freq: Status: Active Protocol: Document 12/22/23 13:01 SP (Rec: 12/22/23 13:48 SP [id number]) OP-PT Subjective Patient Comments Patient Comments Pt reports saw his physician and referred to [facility] saw Dr Flores and Dr Barry, awaiting insurance approval for an xray. He reports his R knee was inflamed for 2 days after last tx due to walking longer than than used to for the 6 min. He states usually has PT-OP-E Functional Tests Start: 10/10/23 15:18 Freq: Status: Active Protocol: Document 12/01/23 13:02 [facility] (Rec: 12/01/23 13:36 [facility] [id number]) Functional Tests 6 Minute Walk Test Distance 612ft Five Times Sit to Stand Test Score 51 sec no hands PT-OP-F Manual Assessment Start: 09/21/23 17:54 Freq: Status: Active Protocol: Document 10/10/23 13:47 NM (Rec: 10/10/23 15:09 NM [id number]) Manual Assessments Soft Tissue Assessment Soft Tissue Mobility Assessment Restrictions of R hamstring and quad limiting ROM, decreased heel cord length B Joint Mobility Assessment Joint Mobility Assessment Empty end feel with PROM to pt tolerance PT-OP-G Mobility & Gait Start: 09/21/23 17:54 Freq: Status: Active Protocol: Document 10/10/23 13:47 NM (Rec: 10/10/23 15:09 NM [id number]) OP Mobility Evaluation Bed Mobility Rolling IND Supine to and from Sit IND; demos slight SLR to move RLE on/off table without assist Transfers Sit to Stand close SBA with BUE on chair or 1 UE on spc OP Gait Assessment Gait Gait Assistance Required: Standby Assistance,Contact Guard Assist Distance (Feet) 150 Assistive Devices Assistive Device Gait Belt,Straight Cane Gait Deviations General Gait Pattern Antalgic,Decreased Stride Length,Decreased Feet Clearance Factors Limiting Gait Function Factors Limiting Gait Function Decreased Activity Tolerance, Decreased Sensation,Decreased Strength,Limited Range of Motion,Pain,Poor Balance Comments Gait Comments Demos slight hip ER with RLE, decreased foot clearance and TKE in stance, limited R hip/ knee flexion in swing. Shuffles as fatigues and demos several instances of LOB with CGA to steady as distance increases and fatigues. Pt used to spc in R hand previously PT-OP-H Neuro Start: 10/10/23 15:10 Freq: Status: Active Protocol: Document 10/10/23 13:47 NM (Rec: 10/10/23 15:14 NM [id number]) Sensation Evaluation Comments Summary Comments BLE equally intact to light touch sensation PT-OP-J Posture/Palpation/Skin Start: 10/10/23 15:10 Freq: Status: Active Protocol: Document 10/10/23 13:47 NM (Rec: 10/10/23 15:14 NM [id number]) Posture Evaluation Position Standing Head/C-Spine Posture Forward Head Shoulder Posture (L) Rounded,(R) Rounded Arm Posture (L) Externally Rotated,(R) Externally Rotated Pelvis Posture Anteriorly Tilted Weight Distribution Weight Shifted Left Hip Posture (R) Externally Rotated Knee Posture (L) Genu Valgus,(R) Genu Valgus Palpation Assessment Location R knee Palpation Findings Soft Tissue Tightness Palpation Details Tenderness along medial knee, patella Increased edema at knee > ankle Skin Assessment Circumference Measurement R knee Location measured at patella Measurement (Centimeters) 43 Comments L knee: 40 cm R ankle Location figure 8 Measurement (Centimeters) 54 Comments L ankle: 51.5 cm Incisional Assessment Incision Appearance/Comments Incision is covered by bandage , which is clean, dry, and intact. No signs or symptoms of DVT or infection Other Assessments Skin Assessment Comments RLE is equal temperature and color PT-OP-K Range of Motion Start: 09/21/23 17:54 Freq: Status: Active Protocol: Document 12/15/23 14:32 NM (Rec: 12/15/23 15:26 NM [id number]) Knee Goniometric Range of Motion Knee Right Knee ROM WFL No Patient Position Supine Flexion Passive (degrees) 129 Extension Active (degrees) 1 Comments R knee AROM supine: flexion gained 6 deg, 129 deg extension gain 7 deg, 1 deg Left Knee ROM WFL No Patient Position Supine Flexion Active (degrees) 125 Extension Active (degrees) 1 Comments L knee AROM supine: flexion gained 3 deg, 125 deg extension no change, 1 deg PT-OP-M Strength Start: 09/21/23 17:54 Freq: Status: Active Protocol: Document 12/15/23 14:32 NM (Rec: 12/15/23 15:26 NM [id number]) Knee Strength Knee Manual Muscle Testing Right Flexion (S2) 4+ Good+ Extension (L3) 4+ Good+ Comments pain w/ext Left Flexion (S2) 4+ Good+ Extension (L3) 4+ Good+ PT-OP-Q Treatments Start: 09/21/23 17:54 Freq: Status: Active Protocol: Document 12/22/23 13:01 SP (Rec: 12/22/23 13:48 SP [id number]) Cardio Equipment Recumbent Bicycle Duration (Minutes) 6 Resistance 10 Seat Position 7 Other 1.51miles Therapeutic Exercises Sitting Exercises HS stretch Sitting Exercise Name reviewed self stretch does home Side bilateral Reps/Minutes 60 SH Comments cued hip hinge LAQ Sitting Exercise Name LAQ Side bilateral Resistance level 2 band Equipment Used kick to therapist hand target for TKE last 3 reps Reps/Minutes 15x2 sets Comments cued TKE; challenging but not painful STS Sitting Exercise Name HEP reviewed Resistance no UE (last 3 of 2nd set w/ hands) Reps/Minutes 5 x STS 36 sec needed hands on 1 thigh 3 reps, 2 hands 4& 5 reps Comments 5/10 pain mostly R knee pain and quad. Standing Exercises side steps Standing Exercise Name lateral, fwd, bwd Side bilateral Resistance level 2 teal band at ankle Equipment Used no rail Reps/Minutes 10ft x 3 laps lateral, 2 laps fwd/bwd before back started hurting Comments cues Df for ft clearance, TA and posture for back support Gait Training Gait Activity no AD Device Used - Distance/Duration 40 ft 1 lap Comments fwd walking end tx, cued light TA, upright posture improved no LBP but tiring work. Neuro Re-Education Treatment Balance Activities tandem stance Equipment inside //bars contact as needed Comments LLE fwd 3 sec x2, 30 sec RLE fwd 30 sec cues for posture, TA, rhomboid fac, fwd wt shift = BLE WB blue pillow Details marching Surface large cushion Equipment inside //bars Comments LOB x1 fwd rail support recovery improved LE lift off cushion with reps no UE support PT-OP-T Assessment and Plan Start: 09/21/23 17:54 Freq: Status: Active Protocol: Document 12/22/23 13:01 SP (Rec: 12/22/23 13:48 SP [id number]) Physical Therapy Assessment Goals Four Impairment STS Short Term Goal (STG) Pt will be able to perform at least 10 STS to LRAD and no increase in R knee pain with transfer in order to demonstrate improved BLE strength for bathroom transfers 11/07-inc knee pain -can if uses hands 11/30-still inc pain STG Duration 4 weeks [employer] Goal (LTG) Pt will be able to perform 5x STS within age-related norms in order to demonstrate improved BLE strength for transfers and gait 11/07-39 sec for 4 11/30-5 in 51 sec LTG Duration 12 weeks Three Impairment 2 MWT distance 148 ft with spc Short Term Goal (STG) Pt will normalize gait mechanics with LRAD and no pain in R knee with WB in order for pt to return to daily walks around his neighborhood 11/07-has been walking around neighborhood w/walker;225ft w/ SPC w//10 pain STG Duration achieved [facility] Goal (LTG) Pt will be able to complete 6 MWT with LRAD and no increase in R knee pain with WB in order for pt to return to daily ambulation within community gant 11/30-able to complete w/med knee pain 04/2312/15/23: 835 ft with spc, reports knee pain, /10 knee pain LTG Duration 12 weeks Two Impairment strength R knee 3/5 Short Term Goal (STG) Pt will improve R knee flexion and extension strength to at least 4-/5 in order to demonstrate increased strength for gait, transfers STG Duration achieved 11/07 [facility] Goal (LTG) Pt will improve R knee flexion and extension strength to at least 4+/5 in order to demonstrate increased strength for gait, transfers 11/07-achieved flex, weaknesss w/ext LTG Duration achieved 11/30 One Impairment R knee AROM lacking 10 - 112 deg Short Term Goal (STG) Pt will improve R knee AROM to at least lacking 5 deg - 118 deg in order to demonstrate improved mobility for transfers, gait, and stairs 11/07-8-123; knee ext a little worse today 11/21/23: 1-129 deg AROM R, STG Duration 6 weeks GOAL MET 11/21/23 [employer] Goal (LTG) Pt will increase R knee AROM to at least 1 deg - 120 deg in order to demonstrate improved mobility for transfers, gait, and stairs 11/21/23: GOAL MET 1-129 RLE LTG Duration 12 weeks GOAL MET 11/21/23 Assessment Summary Assessment Pt tolerated tx well. He was limited with reps STS due to quad tiring and knee pain then back pain due to forward posture. Improved back less pain during standing activities with cues for upright elevated posture but decreased strength and endurance. Good effort reported during resisted LAQ quad tiring. REviewed his self HS stretch to support standing posture, states does often at home. Was able to complete resisted side stepping without UE support today but challenges to maintain his postural endurance. Was able to completed uneven marching with no UE support and improved posture and foot clerance with reps. Physical Therapy Plan Frequency and Duration Frequency of Treatment 1-2x/wk Duration of treatment (weeks) 12 Plan of Care Start Date 10/10/23 Plan of Care End Date 01/06/24 Therapeutic Interventions Therapeutic Interventions Balance Training,Gait Training ,Home Exercise Program,Joint Mobilizations,Manual Therapy, Neuromuscular Re-education, Orthotic/Prosthetic Management ,Patient/Caregiver Education, Self-Care/Home Management, Sensory Integration,Soft Tissue Mobilization,Taping, Therapeutic Activities, Therapeutic Exercises Modalities Cold Pack/Ice Massage,Hot Packs,Vasopneumatic Devices Other Therapeutic Interventions no e-stim due to pacemaker Next Visit Focus/Plan Next Note Type Treatment Note Next Visit Plan Continue uneven marching, fwd/ bwd walking. Trial anterior hip and pec stretch for posture. POC: work on strength and balance for gait and stability Cont with STS, functional strength and balance, trunk control and safety. Condense or progress HEP if brings to session. plan to d/c in 3 visits
--- NOTE | 2023-12-26 13:45 | PT.OTN ---
Current Diagnoses Unilateral primary osteoarthritis, right knee (12/26/23) Stiffness of right knee, not elsewhere classified (12/26/23) Other lack of coordination (12/26/23) Weakness (12/26/23) Encounter for other preprocedural examination (12/26/23) Physical Therapy Treatment Note PT-OP-A Visit Information Start: 09/21/23 17:54 Freq: Status: Active Protocol: Document 12/26/23 13:00 SP (Rec: 12/26/23 13:46 SP [id number]) Out-Patient Physical Therapy Visit Information Visit Information Visit Type Treatment Note Visit Note KX after 19 visits Ors Visit Start Time 13:01 Visit Stop Time 13:45 Visit Number 17 (06/23 with PN) Number of INSPECTOR TYPE Visits 2 Evaluation Information Evaluation Date 10/10/23 Precautions Precautions pacemaker, Afib; hx high blood pressure; fall risk -METLAKATLA L worse than R (has hearing aids) PT-OP-B Current Condition Start: 09/21/23 17:54 Freq: Status: Active Protocol: Document 10/10/23 13:47 NM (Rec: 10/10/23 15:09 NM [id number]) Current Condition History of Current Condition Onset Date DOS 09/29/23; chronic knee pain Current Complaints pain, limited mobility History of Current Condition Pt presents with R knee pain s /p partial TKA on 09/29/23. Dr. Still performed the surgery. States medial portion of knee was replaced. Pt is using spc in R hand. He had spinal surgery last year (July 2022), fusion of 3 vertebrae. He continues to have pain in his spine and neural symptoms ( reports tingling) in R thigh to R toes, but states that he no longer has spinal precautions. He did have PT following the surgery, but states it was minimal and not helpful. He had L TKA 2015 with good results. He has follow up with Dr. Still on Tuesday, 10/12. Prior to surgery , pt was using his spc ( baseline), primarily for balance. He is also using a 4WW at house (ground floor), uses spc outside (easier due to car). Pt lives with his , Mariann, who helped provide hx. They live in a house with an elevator, with 20 stairs (rails- B); however, pt does not use the stairs. Pt reports that his knee has been hurting since at least 1 year pre-op, before his back started to hurt. Pt had a cortisone shot prior to surgery. Pt had a fall back in January 2022, which is what originally injured his back. No falls since surgery. Pt has PMH of Afib, pacemaker. Pt reports sciatica in his RLE- thigh. Wearing compression stockings Prior Treatments and Tests previous lumbar fusion L3-L5 in 07/2022 Treatment Goals Patient/Caregiver Goals to get better again, to reduce pain, improve mobility Prior Functional Status Baseline Function- ADL's Independent Baseline Function- Mobility Independent Baseline Function- Gait ambulation around [place] Baseline Function- Recreation/Hobbies bicycling (stationary), hiking Current Functional Impairments (Reported) Functional Limitations- ADL's no difficulty with dressing walk in shower w/ grab bars, reports no difficulty Functional Limitations- Mobility/Gait currently unable to ambulate around the block WB Functional Limitations- Other pt reports pain with transfers to/from toilet- back and knee PT-OP-C Subjective Start: 09/21/23 17:54 Freq: Status: Active Protocol: Document 12/26/23 13:00 SP (Rec: 12/26/23 13:46 SP [id number]) OP-PT Subjective Patient Comments Patient Comments Pt reports walking 4 laps around the block with 4WW and 15 min on bike but later in the evening was really sore in his back. He states mindful of how much he does not to over do it so not to irritat is back. Had an xray on his LS 12/22 and awaiting results. He has someone come to the house to help instruct exercises, 3x/wk for 1 hr. He states his both bur R>L knee feels like more arthritis than post surgery. PT-OP-E Functional Tests Start: 10/10/23 15:18 Freq: Status: Active Protocol: Document 12/01/23 13:02 LR (Rec: 12/01/23 13:36 [email or web address] [id number]) Functional Tests 6 Minute Walk Test Distance 612ft Five Times Sit to Stand Test Score 51 sec no hands PT-OP-F Manual Assessment Start: 09/21/23 17:54 Freq: Status: Active Protocol: Document 10/10/23 13:47 NM (Rec: 08/26/24 15:09 NM [id number]) Manual Assessments Soft Tissue Assessment Soft Tissue Mobility Assessment Restrictions of R hamstring and quad limiting ROM, decreased heel cord length B Joint Mobility Assessment Joint Mobility Assessment Empty end feel with PROM to pt tolerance PT-OP-G Mobility & Gait Start: 09/21/23 17:54 Freq: Status: Active Protocol: Document 10/10/23 13:47 NM (Rec: 10/10/23 15:09 NM [id number]) OP Mobility Evaluation Bed Mobility Rolling IND Supine to and from Sit IND; demos slight SLR to move RLE on/off table without assist Transfers Sit to Stand close SBA with BUE on chair or 1 UE on spc OP Gait Assessment Gait Gait Assistance Required: Standby Assistance,Contact Guard Assist Distance (Feet) 150 Assistive Devices Assistive Device Gait Belt,Straight Cane Gait Deviations General Gait Pattern Antalgic,Decreased Stride Length,Decreased Feet Clearance Factors Limiting Gait Function Factors Limiting Gait Function Decreased Activity Tolerance, Decreased Sensation,Decreased Strength,Limited Range of Motion,Pain,Poor Balance Comments Gait Comments Demos slight hip ER with RLE, decreased foot clearance and TKE in stance, limited R hip/ knee flexion in swing. Shuffles as fatigues and demos several instances of LOB with CGA to steady as distance increases and fatigues. Pt used to spc in R hand previously PT-OP-H Neuro Start: 10/10/23 15:10 Freq: Status: Active Protocol: Document 10/10/23 13:47 NM (Rec: 10/10/23 15:14 NM [id number]) Sensation Evaluation Comments Summary Comments BLE equally intact to light touch sensation PT-OP-J Posture/Palpation/Skin Start: 10/10/23 15:10 Freq: Status: Active Protocol: Document 10/10/23 13:47 NM (Rec: 10/10/23 15:14 NM [id number]) Posture Evaluation Position Standing Head/C-Spine Posture Forward Head Shoulder Posture (L) Rounded,(R) Rounded Arm Posture (L) Externally Rotated,(R) Externally Rotated Pelvis Posture Anteriorly Tilted Weight Distribution Weight Shifted Left Hip Posture (R) Externally Rotated Knee Posture (L) Genu Valgus,(R) Genu Valgus Palpation Assessment Location R knee Palpation Findings Soft Tissue Tightness Palpation Details Tenderness along medial knee, patella Increased edema at knee > ankle Skin Assessment Circumference Measurement R knee Location measured at patella Measurement (Centimeters) 43 Comments L knee: 40 cm R ankle Location figure 8 Measurement (Centimeters) 54 Comments L ankle: 51.5 cm Incisional Assessment Incision Appearance/Comments Incision is covered by bandage , which is clean, dry, and intact. No signs or symptoms of DVT or infection Other Assessments Skin Assessment Comments RLE is equal temperature and color PT-OP-K Range of Motion Start: 09/21/23 17:54 Freq: Status: Active Protocol: Document 12/15/23 14:32 NM (Rec: 12/15/23 15:26 NM [id number]) Knee Goniometric Range of Motion Knee Right Knee ROM WFL No Patient Position Supine Flexion Passive (degrees) 129 Extension Active (degrees) 1 Comments R knee AROM supine: flexion gained 6 deg, 129 deg extension gain 7 deg, 1 deg Left Knee ROM WFL No Patient Position Supine Flexion Active (degrees) 125 Extension Active (degrees) 1 Comments L knee AROM supine: flexion gained 3 deg, 125 deg extension no change, 1 deg PT-OP-M Strength Start: 09/21/23 17:54 Freq: Status: Active Protocol: Document 12/15/23 14:32 NM (Rec: 12/15/23 15:26 NM [id number]) Knee Strength Knee Manual Muscle Testing Right Flexion (S2) 4+ Good+ Extension (L3) 4+ Good+ Comments pain w/ext Left Flexion (S2) 4+ Good+ Extension (L3) 4+ Good+ PT-OP-Q Treatments Start: 09/21/23 17:54 Freq: Status: Active Protocol: Document 12/26/23 13:00 SP (Rec: 12/26/23 13:46 SP [id number]) Cardio Equipment Recumbent Bicycle Duration (Minutes) 9 Resistance 10 Seat Position 7 Other 2.3 miles Therapeutic Exercises Standing Exercises step ups Standing Exercise Name 1. fwd, 2. lateral Side bilateral Resistance 2# leg wt Equipment Used 6 in step no HR needed Reps/Minutes 10 ea- CG/close SBA Comments cues full knee ext on L lateral & tall /c pelvis under Gait Training Gait Activity dynamic stepping Description fwd head turns, backward stepping Device Used - Level of Assistance CGA Distance/Duration 5o ft hallway x2 laps Treatment Focus posture, COG over RY Comments cued arm swing, bigger step, taller posture, TA Neuro Re-Education Treatment Balance Activities SLS Comments R 6, 5 sec L 4 sec x2 hurdles Details fwd receiprocal, lateral Equipment outside //bars Reps/Duration 2 sets ea Comments cued taller posture and TKE stance LE, trail RLE foot clearance fwd, improved stabiltiy with PT-OP-T Assessment and Plan Start: 09/21/23 17:54 Freq: Status: Active Protocol: Document 12/26/23 13:00 SP (Rec: 12/26/23 13:46 SP [id number]) Physical Therapy Assessment Goals Four Impairment STS Short Term Goal (STG) Pt will be able to perform at least 10 STS to LRAD and no increase in R knee pain with transfer in order to demonstrate improved BLE strength for bathroom transfers 11/07-inc knee pain -can if uses hands 11/30-still inc pain 12/26/23: GOAL MET-10x STS in 56 sec no UE support 18 chair 5/10 LBP (states always there but knees no pain just tiring ). STG Duration 4 weeks GOAL MET 12/26/23 Curve Cleaner Goal (LTG) Pt will be able to perform 5x STS within age-related norms in order to demonstrate improved BLE strength for transfers and gait 11/07-39 sec for 4 11/30-5 in 51 sec 12/26/23: 10x STS in 56 sec no UE support 18 chair 5/10 LBP (states always there but knees no pain just tiring). LTG Duration 12 weeks progressing 12/26/23 Three Impairment 2 MWT distance 148 ft with spc Short Term Goal (STG) Pt will normalize gait mechanics with LRAD and no pain in R knee with WB in order for pt to return to daily walks around his neighborhood 11/07-has been walking around neighborhood w/walker;225ft w/ SPC w/5/10 pain STG Duration achieved Group Home Goal (LTG) Pt will be able to complete 6 MWT with LRAD and no increase in R knee pain with WB in order for pt to return to daily ambulation within community gant 11/30-able to complete w/med knee pain 04/2312/15/23: 835 ft with spc, reports knee pain, 04/23 knee pain 12/26/23: walked 4 blocks around the neighborhood then 15 min on the bike yesterday, 2 more blocks than normal. LTG Duration 12 weeks progressing 12/26/23 Two Impairment strength R knee 3/5 Short Term Goal (STG) Pt will improve R knee flexion and extension strength to at least 4-/5 in order to demonstrate increased strength for gait, transfers STG Duration achieved 11/07 Curve Cleaner Goal (LTG) Pt will improve R knee flexion and extension strength to at least 4+/5 in order to demonstrate increased strength for gait, transfers 11/07-achieved flex, weaknesss w/ext LTG Duration achieved 11/30 One Impairment R knee AROM lacking 10 - 112 deg Short Term Goal (STG) Pt will improve R knee AROM to at least lacking 5 deg - 118 deg in order to demonstrate improved mobility for transfers, gait, and stairs 11/07-8-123; knee ext a little worse today 11/21/23: 1-129 deg AROM R, STG Duration 6 weeks GOAL MET 11/21/23 Curve Cleaner Goal (LTG) Pt will increase R knee AROM to at least 1 deg - 120 deg in order to demonstrate improved mobility for transfers, gait, and stairs 11/21/23: GOAL MET 1-129 RLE LTG Duration 12 weeks GOAL MET 11/21/23 Assessment Summary Assessment Pt REports his back is still the most limiting factor when does to much activity. He improved tolerance STS without UE support and no knee pain, only tiring but back discomfort at last rep. Was able to complete receiprocal nimesh stepping outside //bars , cues for TKE and elongated posture to improve stability and stance time. Pt improved posture with cues head up during trial dynamic walking head turns and backward stepping bigger steps improved stride without UE support, CGA for safety. Physical Therapy Plan Frequency and Duration Frequency of Treatment 1-2x/wk Duration of treatment (weeks) 12 Plan of Care Start Date 10/10/23 Plan of Care End Date 01/06/24 Therapeutic Interventions Therapeutic Interventions Balance Training,Gait Training ,Home Exercise Program,Joint Mobilizations,Manual Therapy, Neuromuscular Re-education, Orthotic/Prosthetic Management ,Patient/Caregiver Education, Self-Care/Home Management, Sensory Integration,Soft Tissue Mobilization,Taping, Therapeutic Activities, Therapeutic Exercises Modalities Cold Pack/Ice Massage,Hot Packs,Vasopneumatic Devices Other Therapeutic Interventions no e-stim due to pacemaker Next Visit Focus/Plan Next Note Type Discharge Summary Next Visit Plan Next visit, last tx. Pt ready for DC for his knee and may come back for his back, most limiting pain with to much activity. Add doorway anterior hip and pec stretch for posture. POC: work on strength and balance for gait and stability Cont with STS, functional strength and balance, trunk control and safety. Condense or progress HEP if brings to session.
--- NOTE | 2023-12-29 13:53 | PT.OTN ---
Current Diagnoses Unilateral primary osteoarthritis, right knee (12/29/23) Stiffness of right knee, not elsewhere classified (12/29/23) Other lack of coordination (12/29/23) Weakness (12/29/23) Encounter for other preprocedural examination (12/29/23) Physical Therapy Treatment Note PT-OP-A Visit Information Start: 09/21/23 17:54 Freq: Status: Active Protocol: Document 12/29/23 13:12 LR (Rec: 12/29/23 13:53 [facility] [id number]) Out-Patient Physical Therapy Visit Information Visit Information Visit Type Discharge Summary Visit Start Time 13:03 Visit Stop Time 13:43 Visit Number 18 Number of LEAD SHOP OPERATOR Visits 0 PT-OP-B Current Condition Start: 09/21/23 17:54 Freq: Status: Active Protocol: Document 10/10/23 13:47 NM (Rec: 10/10/23 15:09 NM [id number]) Current Condition History of Current Condition Onset Date DOS 09/29/23; chronic knee pain Current Complaints pain, limited mobility History of Current Condition Pt presents with R knee pain s /p partial TKA on 09/29/23. Dr. Still performed the surgery. States medial portion of knee was replaced. Pt is using spc in R hand. He had spinal surgery last year (July 2022), fusion of 3 vertebrae. He continues to have pain in his spine and neural symptoms ( reports tingling) in R thigh to R toes, but states that he no longer has spinal precautions. He did have PT following the surgery, but states it was minimal and not helpful. He had L TKA 2015 with good results. He has follow up with Dr. Still on Tuesday, 10/12. Prior to surgery , pt was using his spc ( baseline), primarily for balance. He is also using a 4WW at house (ground floor), uses spc outside (easier due to car). Pt lives with his , Mariann, who helped provide hx. They live in a house with an elevator, with 20 stairs (rails- B); however, pt does not use the stairs. Pt reports that his knee has been hurting since at least 1 year pre-op, before his back started to hurt. Pt had a cortisone shot prior to surgery. Pt had a fall back in January 2022, which is what originally injured his back. No falls since surgery. Pt has PMH of Afib, pacemaker. Pt reports sciatica in his RLE- thigh. Wearing compression stockings Prior Treatments and Tests previous lumbar fusion L3-L5 in 07/2022 Treatment Goals Patient/Caregiver Goals to get better again, to reduce pain, improve mobility Prior Functional Status Baseline Function- ADL's Independent Baseline Function- Mobility Independent Baseline Function- Gait ambulation around [place] Baseline Function- Recreation/Hobbies bicycling (stationary), hiking Current Functional Impairments (Reported) Functional Limitations- ADL's no difficulty with dressing walk in shower w/ grab bars, reports no difficulty Functional Limitations- Mobility/Gait currently unable to ambulate around the block WB Functional Limitations- Other pt reports pain with transfers to/from toilet- back and knee PT-OP-C Subjective Start: 09/21/23 17:54 Freq: Status: Active Protocol: Document 12/29/23 13:12 [facility] (Rec: 12/29/23 13:53 [facility] [id number]) OP-PT Subjective Patient Comments Patient Comments pt has a screw loose in back per CT. Following up w/doctor PT-OP-E Functional Tests Start: 10/10/23 15:18 Freq: Status: Active Protocol: Document 12/29/23 13:12 [facility] (Rec: 12/29/23 13:53 [facility] [id number]) Functional Tests Five Times Sit to Stand Test Score 52 sec no hands PT-OP-F Manual Assessment Start: 09/21/23 17:54 Freq: Status: Active Protocol: Document 10/10/23 13:47 NM (Rec: 10/10/23 15:09 NM [id number]) Manual Assessments Soft Tissue Assessment Soft Tissue Mobility Assessment Restrictions of R hamstring and quad limiting ROM, decreased heel cord length B Joint Mobility Assessment Joint Mobility Assessment Empty end feel with PROM to pt tolerance PT-OP-G Mobility & Gait Start: 09/21/23 17:54 Freq: Status: Active Protocol: Document 10/10/23 13:47 NM (Rec: 10/10/23 15:09 NM [id number]) OP Mobility Evaluation Bed Mobility Rolling IND Supine to and from Sit IND; demos slight SLR to move RLE on/off table without assist Transfers Sit to Stand close SBA with BUE on chair or 1 UE on spc OP Gait Assessment Gait Gait Assistance Required: Standby Assistance,Contact Guard Assist Distance (Feet) 150 Assistive Devices Assistive Device Gait Belt,Straight Cane Gait Deviations General Gait Pattern Antalgic,Decreased Stride Length,Decreased Feet Clearance Factors Limiting Gait Function Factors Limiting Gait Function Decreased Activity Tolerance, Decreased Sensation,Decreased Strength,Limited Range of Motion,Pain,Poor Balance Comments Gait Comments Demos slight hip ER with RLE, decreased foot clearance and TKE in stance, limited R hip/ knee flexion in swing. Shuffles as fatigues and demos several instances of LOB with CGA to steady as distance increases and fatigues. Pt used to spc in R hand previously PT-OP-H Neuro Start: 10/10/23 15:10 Freq: Status: Active Protocol: Document 10/10/23 13:47 NM (Rec: 10/10/23 15:14 NM [id number]) Sensation Evaluation Comments Summary Comments BLE equally intact to light touch sensation PT-OP-J Posture/Palpation/Skin Start: 10/10/23 15:10 Freq: Status: Active Protocol: Document 10/10/23 13:47 NM (Rec: 10/10/23 15:14 NM [id number]) Posture Evaluation Position Standing Head/C-Spine Posture Forward Head Shoulder Posture (L) Rounded,(R) Rounded Arm Posture (L) Externally Rotated,(R) Externally Rotated Pelvis Posture Anteriorly Tilted Weight Distribution Weight Shifted Left Hip Posture (R) Externally Rotated Knee Posture (L) Genu Valgus,(R) Genu Valgus Palpation Assessment Location R knee Palpation Findings Soft Tissue Tightness Palpation Details Tenderness along medial knee, patella Increased edema at knee > ankle Skin Assessment Circumference Measurement R knee Location measured at patella Measurement (Centimeters) 43 Comments L knee: 40 cm R ankle Location figure 8 Measurement (Centimeters) 54 Comments L ankle: 51.5 cm Incisional Assessment Incision Appearance/Comments Incision is covered by bandage , which is clean, dry, and intact. No signs or symptoms of DVT or infection Other Assessments Skin Assessment Comments RLE is equal temperature and color PT-OP-K Range of Motion Start: 09/21/23 17:54 Freq: Status: Active Protocol: Document 12/15/23 14:32 NM (Rec: 12/15/23 15:26 NM [id number]) Knee Goniometric Range of Motion Knee Right Knee ROM WFL No Patient Position Supine Flexion Passive (degrees) 129 Extension Active (degrees) 1 Comments R knee AROM supine: flexion gained 6 deg, 129 deg extension gain 7 deg, 1 deg Left Knee ROM WFL No Patient Position Supine Flexion Active (degrees) 125 Extension Active (degrees) 1 Comments L knee AROM supine: flexion gained 3 deg, 125 deg extension no change, 1 deg PT-OP-M Strength Start: 09/21/23 17:54 Freq: Status: Active Protocol: Document 12/15/23 14:32 NM (Rec: 12/15/23 15:26 NM [id number]) Knee Strength Knee Manual Muscle Testing Right Flexion (S2) 4+ Good+ Extension (L3) 4+ Good+ Comments pain w/ext Left Flexion (S2) 4+ Good+ Extension (L3) 4+ Good+ PT-OP-Q Treatments Start: 09/21/23 17:54 Freq: Status: Active Protocol: Document 12/29/23 13:12 [facility] (Rec: 12/29/23 13:53 [facility] [id number]) Therapeutic Exercises Sitting Exercises HS curl Side bilateral Equipment Used L2 Reps/Minutes 15 ea toe raises Side bilateral Reps/Minutes 20 LAQ Sitting Exercise Name LAQ Side bilateral Resistance level 2 band Reps/Minutes 10 ea Comments cues TKE Standing Exercises knee flex Side right Reps/Minutes 10 ea Comments cues for posture heel raises Side bilateral Equipment Used rail Reps/Minutes 20 backwards walk Side bilateral Equipment Used rail prn Reps/Minutes 20ftx2 Comments max cues for lg steps side steps Standing Exercise Name lat Side bilateral Equipment Used rail Reps/Minutes 10ftx2 squat Standing Exercise Name sit to stand Side bilateral Reps/Minutes 5x Neuro Re-Education Treatment Balance Activities hurdles Equipment 6 hurdles w/bar as needed Comments 1. fwd recip x6 2. side step x2 PT-OP-T Assessment and Plan Start: 09/21/23 17:54 Freq: Status: Active Protocol: Document 12/29/23 13:12 [facility] (Rec: 12/29/23 13:53 [facility] [id number]) Physical Therapy Assessment Goals Four Impairment STS Short Term Goal (STG) Pt will be able to perform at least 10 STS to LRAD and no increase in R knee pain with transfer in order to demonstrate improved BLE strength for bathroom transfers 11/07-inc knee pain -can if uses hands 11/30-still inc pain 12/26/23: GOAL MET-10x STS in 56 sec no UE support 18 chair 5/10 LBP (states always there but knees no pain just tiring ). STG Duration 4 weeks GOAL MET 12/26/23 Senior Care Goal (LTG) Pt will be able to perform 5x STS within age-related norms in order to demonstrate improved BLE strength for transfers and gait 11/07-39 sec for 4 11/30-5 in 51 sec 12/26/23: 10x STS in 56 sec no UE support 18 chair 5/10 LBP (states always there but knees no pain just tiring). 12/28-5x in 52 sec LTG Duration 12 weeks progressing 12/26/23 Three Impairment 2 MWT distance 148 ft with spc Short Term Goal (STG) Pt will normalize gait mechanics with LRAD and no pain in R knee with WB in order for pt to return to daily walks around his neighborhood 11/07-has been walking around neighborhood w/walker;225ft w/ SPC w//10 pain STG Duration achieved Senior Care Goal (LTG) Pt will be able to complete 6 MWT with LRAD and no increase in R knee pain with WB in order for pt to return to daily ambulation within community gant 11/30-able to complete w/med knee pain 04/2312/15/23: 835 ft with spc, reports knee pain, 04/23 knee pain 12/26/23: walked 4 blocks around the neighborhood then 15 min on the bike yesterday, 2 more blocks than normal. 12/28-avoided today d/t back hurting a lot the day after last time tested LTG Duration 12 weeks progressing 12/26/23 Assessment Summary Assessment Pt has progressed well w/PT for R knee but is most limited at this time w/all mobility d /t his back pain. He is plateauing w/progress at this time w/functional mobility but c/o back adn radiating LE pain B during these which are likely the limits. Pt to work with spinal surgeon on planf or back and DC PT at this time as completed PT for R knee. DC to HEP w/product trainer help at home Physical Therapy Plan Discharge Physical Therapy Discharge Reasons Goals Met Discharge Comments progress plateauing d/t back pain
== END 2024-01-02 10:37 | disposition home or self-care (01) ==
LOC: PHYS 13:00
PROVIDERS: Family Provider Family Medicine; PCP Family Medicine; Referring Provider Family Medicine; Visit Provider Family Medicine
DX: M17.11 Unilateral primary osteoarthritis, right knee (principal); Z01.818 Encounter for other preprocedural examination; M25.661 Stiffness of right knee, not elsewhere classified; R53.1 Weakness; R27.8 Other lack of coordination
CPT/HCPCS: 97110; 97112; 97116; 97140; 97161; 97535

== ENCOUNTER → 2024-01-06 08:19 | Outpatient (CLI) | payer MEDICARE, OTHER, SELFPAY ==
[2023-08-31 15:15] VITALS: BMI 28.1
[2024-01-06 09:12] LABS: Add Manual Diff / Slide Review NO; Basophils Absolute Auto 0 /uL (0-100); Basophils Percent Auto 0.5 % (0-2); Eosinophils Absolute Auto 200 /uL (0-450); Eosinophils Percent Auto 2.6 % (2-4); Hematocrit 38.6 % (41-53); Hemoglobin 12.6 g/dL (13.5-17.5); Lymphocytes Absolute Auto 2000 /uL (1100-4500); Mean Corpuscular HGB Conc 32.6 % (30-36); Mean Corpuscular Hemoglobin 27.2 PG (26-34); Mean Corpuscular Volume 83.4 fL (80-100); Monocytes Absolute Auto 600 /uL (0-900); Monocytes Percent Auto 7.5 % (3-14); Neutrophils Absolute Auto 5500 /uL (1500-7000); Neutrophils Percent Auto 65.4 % (50-75); Platelet Count 238 X10^3/uL (150-400); Red Blood Cell Count 4.63 X10^6/uL (4.5-5.9); Red Cell Distribution Width 18.4 % (11.6-14.8); White Blood Cell Count 8.4 X10^3/uL (4.5-11.0)
[2024-01-06 09:35] LABS: Alanine Aminotransferase 14 IU/L (<50); Albumin Globulin Ratio 1.5 (1.0-2.8); Alkaline Phosphatase 60 U/L (38-126); Aspartate Aminotransferase 21 IU/L (17-59); Bilirubin Total 0.6 mg/dL (0.2-1.3); Blood Urea Nitrogen 29 mg/dL (9-20); C-Reactive Protein Quant 1.6 mg/dL (<1.0); Calcium 9.2 mg/dL (8.4-10.2); Carbon Dioxide 30 mmol/L (22-32); Chloride 104 mmol/L (98-107); Estimated Glomerular Filt Rate > 60 mL/min (>60); Globulin 2.7 g/dL (1.7-4.1); Glucose 110 mg/dL (80-110); HEMOLYSIS < 15 (0-50); Sodium 140 mmol/L (137-145); Total Protein 6.7 g/dL (6.3-8.2)
[2024-01-06 10:15] LABS: Erythrocyte Sedimentation Rate 20 MM/HR (0-15)
== END ==
LOC: LAB 08:21
PROVIDERS: Family Provider Family Medicine; PCP Family Medicine; Referring Provider Internal Medicine Gastroenterology; Visit Provider Internal Medicine Gastroenterology
DX: K51.90 Ulcerative colitis, unspecified, without complications (principal)
CPT/HCPCS: 36415; 80053; 83993; 85025; 85651; 86140

== ENCOUNTER → 2024-03-01 09:05 | Outpatient (CLI) | payer MEDICARE, OTHER, SELFPAY ==
[2023-08-31 15:15] VITALS: BMI 28.1
--- NOTE | 2024-03-01 09:07 | DI.ECHO.S_ITS ---
[facility] : : [address] : : [place] : : [id number] : : Phone: [phone] Echocardiogram Report + + :Name: LUPE ARNOLD Study Date: 03/01/2024 Height: 66 in : :[facility] ReadingLocation: Weight: 178 lb : : Gender: Male BSA: 1.9 m2 : :: 1940 Age: 83 yrs BP: 137/89 mmHg: :Reason For Study: NON ISCHEMIC CARDIOMYOPATHY : :Ordering Physician: JUAN DIEGO, : :GULSHAN Performed By: Jud Butler : :Referring: GULSHAN ADAMSON C : + + Interpretation Summary The ejection fraction is estimated to be 45-50%. Procedure: A two-dimensional transthoracic echocardiogram with color flow and Doppler was performed. The study quality was technically adequate. Comparison is made with the echocardiogram of 12/13/2023. The patient has a paced rhythm. The heart rate ranged between 59-62 bpm during the study. Left Ventricle: The left ventricle is normal in size. There is normal left ventricular wall thickness. A false chord is noted (normal variant). The ejection fraction is estimated to be 45-50%. There is a mild dyssynchronous contraction pattern due to the paced rhythm. Pericardium/ Pleura There is no pericardial effusion. There is no pleural effusion. MMode/2D Measurements & Calculations LVIDd: 5.2 cm LVIDs: 3.8 cm FS: 26.5 % EPSS: 1.3 cm IVSd: 0.99 cm LVPWd: 1.0 cm LV rubio. diameter/BSA (cm/m^2): 2.7 LV sys. diameter/BSA (cm/m^2): 2.0 Reading Physician:03:25 PM
== END ==
PROVIDERS: Family Provider Family Medicine; PCP Family Medicine; Referring Provider Physician Assistant; Visit Provider Physician Assistant
DX: I42.8 Other cardiomyopathies (principal); Z95.0 Presence of cardiac pacemaker
CPT/HCPCS: 93307

== ENCOUNTER → 2024-07-17 | Outpatient (CLI) | payer MEDICARE, OTHER, SELFPAY ==
[2024-05-14 14:13] VITALS: BMI 28.1
--- NOTE | 2024-07-17 | DI.CT.S_ITS ---
PROCEDURE: CT ABDOMEN PELVIS W CON INDICATIONS: ULCERATIVE COLITIS,BELCHING SYMPTOM TECHNIQUE: After the administration of intravenous contrast, axial sections acquired from the lung bases to the pubic symphysis. Coronal and sagittal reformats were performed. For radiation dose reduction, the following was used: automated exposure control, adjustment of mA and/or kV according to patient size. COMPARISON: [facility], CT, CT ABDOMEN PELVIS W CON, 01/26/2021, 12:54. FINDINGS: Image quality: Diagnostic. Lower Chest: No significant findings. ABDOMEN: Liver: No solid mass. Gallbladder: No radiopaque gallstones or wall thickening. Biliary ducts: No biliary dilation. Pancreas: Stable severe volume loss. Multiple cystic lesions in the body and tail are stable or less prominent, therefore benign. Spleen: Size is within normal limits. Adrenal Glands: No adrenal nodules. Kidneys and Ureters: No hydronephrosis. No solid mass. No complex renal cystic lesion which requires follow up. Stomach and Bowel: There is no bowel dilatation. Significant diverticulosis seen especially in the left colon. There is prominence of the Vasa recta in the region of the sigmoid, also with mild wall thickening. Minimal fat stranding. No significant mucosal enhancement. No fluid collection. Peritoneum: No abnormal intraperitoneal fluid. No free air. Ventral Wall: No significant ventral hernia. Abdominal Nodes: No retroperitoneal or mesenteric adenopathy by size criteria. Vessels: Aorta and inferior vena cava are normal in size. PELVIS: Pelvic Organs: Unremarkable. Bladder: No bladder wall thickening, accounting for underdistention. Pelvic Nodes: No enlarged lymph nodes. Miscellaneous: No inguinal hernias are seen. Bones: No aggressive osseous abnormality. IMPRESSION: 1. Mild inflammatory changes of the sigmoid colon, may be due to mild colitis or diverticulitis. No signs of complications. 2. No signs of enteritis. No acute abnormality otherwise. Dictated by: Melvin Navas M.D. on 07/17/2024 at 17:57 Approved by: Melvin Navas M.D. on 07/17/2024 at 18:02
== END ==
PROVIDERS: Family Provider Family Medicine; PCP Family Medicine; Referring Provider Internal Medicine Gastroenterology; Visit Provider Internal Medicine Gastroenterology
DX: K51.90 Ulcerative colitis, unspecified, without complications (principal); R14.2 Eructation; K86.2 Cyst of pancreas; K57.30 Diverticulosis of large intestine without perforation or abscess without bleeding
CPT/HCPCS: 74177; Q9967

== ENCOUNTER → 2024-07-31 09:30 | Outpatient (CLI) | payer MEDICARE, OTHER, SELFPAY ==
[2024-05-14 14:13] VITALS: BMI 28.1
--- NOTE | 2024-07-31 09:32 | DI.MG.S_ITS ---
MM diagnostic mammo BI: 07/31/2024. BI-RADS: 2 CLINICAL: 83-year old male for bilateral diagnostic mammogram. No personal or first-degree family history of breast cancer. The patient reports a palpable abnormality (3 months) and pain (3 months) in the left breast. The patient had a prior right breast biopsy. PRIOR EXAMS: None. This is a baseline mammogram. MAMMOGRAPHY TECHNIQUE: 2D and 3D (tomosynthesis) digital mammographic views obtained, with additional images as needed for full coverage. Current study was also evaluated with a Computer Aided Detection (CAD) system. DENSITY A. The breasts are almost entirely fatty. MAMMOGRAPHY FINDINGS Right: Central, Anterior depth: There is an asymmetry consistent with gynecomastia. Left: Central, Retroareolar, Far Anterior depth: Correlating with pain/tenderness, there is an asymmetry consistent with gynecomastia. IMPRESSION: * No evidence of malignancy with benign findings. RECOMMENDATIONS Left: Central, Retroareolar, Far Anterior depth * Clinical followup . OVERALL ASSESSMENT CATEGORY BI-RADS-2: Benign. ELECTRONICALLY SIGNED: Jann Lowery M.D. on 07/31/2024 at 10:19:10 AM PT Interpreting Station ID: [id number]
== END ==
LOC: MAMMO 09:31
PROVIDERS: Family Provider Family Medicine; PCP Family Medicine; Referring Provider Family Medicine; Visit Provider Family Medicine
DX: N63.20 Unspecified lump in the left breast, unspecified quadrant (principal); N64.4 Mastodynia; R92.313 Mammographic fatty tissue density, bilateral breasts
CPT/HCPCS: 77066; G0279

== ENCOUNTER → 2024-10-23 17:22 | Outpatient (ROUT) | payer MEDICARE, OTHER, SELFPAY ==
[2024-05-14 14:13] VITALS: BMI 28.1
== END ==
PROVIDERS: Family Provider Family Medicine; PCP Family Medicine; Visit Provider Dermatology
DX: L03.90 Cellulitis, unspecified (principal)
CPT/HCPCS: 87070; 87077; 87102; 87147; 87186; 87205

== ENCOUNTER → 2025-01-12 10:30 | Outpatient (CLI) | payer MEDICARE, OTHER, SELFPAY ==
[2024-05-14 14:13] VITALS: BMI 28.1
== END ==
LOC: LAB 10:31
PROVIDERS: Family Provider Family Medicine; PCP Family Medicine; Visit Provider Chiropractor
DX: R30.0 Dysuria (principal)
CPT/HCPCS: 87077; 87086; 87186

== ENCOUNTER 2025-01-14 15:25 | Inpatient (IN) | payer MEDICARE, OTHER, SELFPAY ==
[2024-05-14 14:13] VITALS: BMI 28.1
[2025-01-14] VITALS (15 sets, daily range): BP systolic 117–144; BP diastolic 57–79; PULSE 59–68; RESP 16–31; TEMP 36.6–38.7; O2SAT 86–99; BMI 28.1
--- NOTE | 2025-01-14 15:30 | DI.RAD.S_ITS ---
PROCEDURE: XR CHEST 1V INDICATIONS: fever, recent UTI TECHNIQUE: One view of the chest was acquired. COMPARISON: [facility], CR, XR CHEST 2V, 11/07/2023, 17:13. FINDINGS: Surgical changes and devices: Left chest wall pacemaker leads are in the region of right atrium and right ventricle. Surgical clips are noted in lower neck. Lungs and pleura: Ill-defined patchy airspace opacities are seen scattered in bilateral lung fajardo more prominent on the right side. Small left pleural effusion is also present with blunting of left costophrenic angle. No pneumothorax. Mediastinum: Tortuous thoracic aorta. Heart size is enlarged. Bones and chest wall: No suspicious bony lesions. Overlying soft tissues appear unremarkable. IMPRESSION: Small bilateral scattered pulmonary infiltrates and small left pleural effusion. No pneumothorax. Dictated by: Rosas Devlin M.D. on 01/14/2025 at 16:06 Approved by: Rosas Devlin M.D. on 01/14/2025 at 16:07
--- NOTE | 2025-01-14 15:30 | EKG_ITS ---
[address] [address] Test Date: 2025-01-14 Pat Name: Alpesh Menendez Department: [facility] Room: Gender: Male Portfolio Specialist: JOSUÉ : 1940 Requested By: Order Number: [id number] Reading MD: Jair Tran Measurements Intervals [place] Rate: 60 P: TX: QRS: -78 QRSD: 172 T: 76 QT: 472 QTc: 472 Interpretive Statements Ventricular-paced rhythm Electronically Signed On 01-19-2025 12:27:08 PST by Jair Tran
--- NOTE | 2025-01-14 15:30 | ED.FEVER ---
HPI - Fever General Chief Complaint: Fever Stated Complaint: UTI fever Time Seen by Provider: 01/14/25 15:29 Source: patient, EMS, RN notes reviewed and old records reviewed Mode of arrival: EMS History of Present Illness HPI Narrative: 84-year-old male history atrial fibrillation Eliquis, BPH, pacemaker, hypothyroidism, BASILIO, dementia brought in by EMS for reported fever and generalized weakness. Patient can tell me his name, he is unsure why he is here, he has not no complaints currently. He is not able provide much past medical history. He denies any chest pain or shortness of breath, denies fevers, chills, no nausea or vomiting, and he denies any GI or urinary symptoms. Per EMS patient had incontinence earlier this week was at urgent care was found to have a UTI. Per EMS patient is at his usual baseline of mentation. Related Data Home Medications ?Medication ?Instructions ?Recorded ?Confirmed [id number] 300 mcg-K 60 1 tab PO DAILY 01/26/21 01/12/25 mcg-lycop 600 mcg-lutein 300 mcg tablet (Centrum Silver Ultra Men's) balsalazide 750 mg capsule 2,250 mg PO BID 02/05/21 01/12/25 cholecalciferol (vitamin D3) 25 25 mcg PO DAILY 02/05/21 01/12/25 mcg (1,000 unit) capsule levothyroxine 150 mcg tablet 150 mcg PO Q OTHER DAY 02/05/21 01/12/25 donepezil 10 mg tablet 10 mg PO QPM 05/20/22 01/12/25 acetaminophen 325 mg tablet 650 mg PO Q6H PRN Pain 07/27/22 01/12/25 apixaban 5 mg tablet (Eliquis) 5 mg PO BID 07/27/22 01/12/25 memantine 10 mg tablet 10 mg PO BID 05/26/23 01/12/25 bisoprolol fumarate 5 mg tablet mg PO 02/22/24 01/12/25 losartan 50 mg tablet 50 mg PO DAILY 02/22/24 01/12/25 spironolactone 25 mg tablet 25 mg PO DAILY 02/22/24 01/12/25 duloxetine PO 05/16/24 01/12/25 tramadol 25 mg tablet 25 mg PO Q6H PRN 11/01/24 01/12/25 Previous Rx's ?Medication ?Instructions ?Recorded tamsulosin 0.4 mg capsule 0.4 mg PO ONCE PM #90 caps 05/14/24 cephalexin 500 mg capsule 500 mg PO BID 7 days #14 caps 01/12/25 Allergies Allergy/AdvReac Type Severity Reaction Status Date / Time chlorhexidine (From Allergy Severe Rash Verified 01/14/25 15:49 Hibiclens) mesalamine (MESALAMINE) AdvReac Severe Pain, Verified 01/14/25 15:49 diarrhea Review of Systems Review of Systems ROS Unobtainable: All systems reviewed & are unremarkable except as noted in HPI and below Patient History Medical History Lumbosacral radiculopathy Spondylolisthesis of lumbar region Lumbar spondylosis Low back pain BPH w urinary obs/LUTS Spinal stenosis, 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 Bladder outlet obstruction Benign prostatic hyperplasia Dementia Afib Balanitis Memory changes Hearing impaired Osteoarthritis Skin cancer BCC (basal cell carcinoma) (2022) Sensitive skin 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) History of urinary retention Lumbar spinal stenosis DJD of right shoulder Lower urinary tract symptoms History of phimosis of penis Male circumcision Acute metabolic encephalopathy Sepsis History of tobacco use Gross hematuria History of urinary tract infection Abnormal prostate by palpation Acquired phimosis of penis Pancreatic cyst Anemia Hypothyroidism associated with surgical procedure Hypertension Central sleep apnea Excessive daytime sleepiness Obstructive sleep apnea of adult Primary insomnia Restless legs syndrome (RLS) Snoring PANCREATIC CYSTS Rectal bleeding Chemosis of left conjunctiva Corneal abrasion Surgical History History of lumbar surgery History of reverse total replacement of right shoulder joint (05/26/22) Hx of tonsillectomy Hx of bilateral cataract extraction Hx of thyroidectomy (~1989) History of urologic surgery (04/02/21) History of ankle surgery History of total left knee replacement H/O shoulder surgery Family History Father Parkinson disease Mother Parkinson disease Sister Blood disorder Social History marital status: details: hsavonne Waite number of children: 1 household members: spouse lives independently: Yes caregiver/support person: No pets and animals: No occupational status: previously employed current occupational exposures/hazards: No 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 Patient is conversant. HEENT: Atraumatic, pupils are equal round reactive to light, extraocular movements are intact, nares are clear, TMs are clear with no fluid, there is no conjunctival pallor. Throat is clear without any exudates, erythema, tonsillar enlargement or uvular deviation HEART: Regular rate and rhythm without murmur, clicks, rubs. Pulses are equal in upper and lower extremities LUNGS:Lungs clear to auscultation, no wheezes, rales, crackles, chest moves symmetrically, no tachypnea accessory muscle use ABD:bowel sounds normal, soft, non-tender, no guarding, rebound, rigidity, no masses noted, no hepatosplenomegaly :No CVA tenderness MSCL: Non-tender, no muscle atrophy, muscles strength 5/5 upper and lower extremities, full range of motion. NEURO:CN 2-12 intact, sensation normal Initial Vital Signs Initial Vital Signs: Vital Signs Pulse Oximetry 90 L 01/14/25 15:29 Oxygen Delivery Method Room Air 01/14/25 15:29 Oxygen Flow Rate 2 01/14/25 15:29 Course Orders Ordered: ED Orders 01/14/25 15:20 CBC Auto Diff [Complete Blood Count AUTO DIFF] Stat Comprehensive Metabolic Panel Stat Lactate (Lactic Acid) Stat Procalcitonin Stat 01/14/25 15:30 XR chest 1V Stat Urinalysis and Microscopic Stat EKG-12 Lead Stat 01/14/25 15:45 Blood Culture Stat 01/14/25 15:55 CT kidney ureter bladder (KUB) Stat 01/14/25 16:41 Covid-19 + FLU A/B + RSV - PCR Stat Discontinued Medications Acetaminophen (Acetaminophen 325 Mg Tablet) 975 mg PO NOW ONE Stop: 01/14/25 15:56 Last Admin: 01/14/25 16:21 Dose: 975 mg Documented By: CASSIE Ceftriaxone Sodium 2,000 mg/ (Sodium Chloride) 100 mls @ 200 mls/hr IV NOW ONE Stop: 01/14/25 15:56 Last Infusion: 01/14/25 17:28 Dose: Infused Documented By: Admin: 01/14/25 16:21 Dose: 200 mls/hr Documented By: CASSIE Sodium Chloride (Normal Saline 0.9%) 1,000 mls @ 1,000 mls/hr IV BOLUS ONE Stop: 01/14/25 16:54 Last Infusion: 01/14/25 17:28 Dose: Infused Documented By: Admin: 01/14/25 16:20 Dose: 1,000 mls/hr Documented By: CASSIE Sodium Chloride (Normal Saline 0.9%) 500 mls @ 1,000 mls/hr IV BOLUS ONE Stop: 01/14/25 16:52 Last Admin: 01/14/25 18:02 Dose: Not Given Documented By: BEER Sodium Chloride (Normal Saline 0.9%) 1,000 mls @ 1,000 mls/hr IV BOLUS ONE Stop: 01/14/25 18:34 Last Admin: 01/14/25 18:01 Dose: 1,000 mls/hr Documented By: EBER Vital Signs Vital signs: Vital Signs - 8 hr 01/14/25 15:29 01/14/25 15:30 01/14/25 15:30 Temperature Pulse Rate 61 Respiratory Rate Blood Pressure 118/57 L Pulse Oximetry 90 L 86 L Oxygen Delivery Method Room Air Oxygen Flow Rate 2 01/14/25 15:46 01/14/25 16:11 01/14/25 16:30 Temperature 101.7 F H Pulse Rate 59 L 60 62 Respiratory Rate 24 29 H 31 H Blood Pressure 118/57 L Pulse Oximetry 94 94 94 Oxygen Delivery Method Nasal Cannula Oxygen Flow Rate 2 01/14/25 17:00 01/14/25 17:11 01/14/25 17:11 Temperature Pulse Rate 68 60 Respiratory Rate 24 26 H Blood Pressure 117/58 L Pulse Oximetry 94 95 Oxygen Delivery Method Oxygen Flow Rate MDM - Fever Lab Data 01/14/25 15:20 01/14/25 15:20 Labs: Lab Results 01/14/25 01/14/25 01/14/25 Range/Units 15:20 16:41 17:30 WBC 16.0 H (4.5-11.0) X10^3/uL RBC 4.07 L (4.5-5.9) X10^6/uL Hgb 11.9 L (13.5-17.5) g/dL Hct 35.9 L (41-53) % MCV 88.1 (80-100) fL MCH 29.2 (26-34) PG MCHC 33.1 (30-36) % RDW 14.8 (11.6-14.8) % Plt Count 122 L (150-400) X10^3/uL Neut % (Auto) 84.8 H (50-75) % Lymph % (Auto) 6.8 L (25-40) % [place] % (Auto) 8.2 (3-14) % Eos % (Auto) 0.0 L (2-4) % Baso % (Auto) 0.2 (0-2) % Neut # (Auto) 19614 H (7827-0167) /uL Lymph # (Auto) 1100 (5945-7713) /uL [place] # (Auto) 1300 H (0-900) /uL Eos # (Auto) 0 (0-450) /uL Baso # (Auto) 0 (0-100) /uL Sodium 140 (137-145) mmol/L Potassium 4.4 (3.4-5.1) mmol/L Chloride 104 (98-107) mmol/L Carbon Dioxide 23 (22-32) mmol/L BUN 63 H (9-20) mg/dL Creatinine 1.92 H (0.66-1.25) mg/dL Estimated GFR 34 L (>60) mL/min BUN/Creatinine Ratio 32.8 H (6-22) Glucose 137 H (70-99) mg/dL Lactate 2.6 H 1.0 (0.7-2.1) mmol/L Calcium 9.1 (8.4-10.2) mg/dL Total Bilirubin 1.8 H (0.2-1.3) mg/dL AST 36 (17-59) IU/L ALT 22 (<50) IU/L Alkaline Phosphatase 61 (38-126) U/L Total Protein 7.5 (6.3-8.2) g/dL Albumin 4.3 (3.5-5.0) g/dL Globulin 3.2 (1.7-4.1) g/dL Albumin/Globulin Ratio 1.3 (1.0-2.8) Procalcitonin 3.73 H (<0.5) ng/mL SARS-CoV-2 (PCR) Negative (Negative) Influenza A (RT-PCR) Flu a negative (NEGATIVE) Influenza B (RT-PCR) Flu b negative (NEGATIVE) RSV (PCR) Negative (Negative) MDM Narrative Medical decision making narrative: Labs show white count of 16 hemoglobin 11.9 platelets are 122 predominance of neutrophils, creatinine is 1.92 BUN 63 LFTs are otherwise appropriate except for a bilirubin of 1.8 AST of 36 ALT of 22 procalcitonin is 3.73. Lactate is 2.6. Glucose is 137. EKG, ventricularly paced rhythm rate of 60 QRS of 172 QTC of 472. Chest x-ray, small bilateral it is colored pulmonary infiltrates and small left pleural effusion no pneumothorax. CT KUB shows no obstructing stones or hydronephrosis severe prostatomegaly decompressed bladder with mild bladder wall thickening, diverticulosis, bilateral fat containing inguinal hernias. COVID/influenza/RSV Urinalysis Spoke with the patient's she states he is normally less confused. She does note he has continued to have incontinence he has been on cephalexin. Patient received acetaminophen, fluids, not initially given 30 cc/kilos bolus based on patient's extremity of age. Was given 1 L aliquots. Patient's family did not note that he is quite dry and did not have minimal urine output after his Rolon catheter was placed received a 2 L. also received Rocephin. 1537 on recheck patient cap refill is less than 2 seconds, BP is 120's systolic Spoke with the patient's family at bedside they note he has not been eating or drinking much the last 2 or 3 days we will likely be little bit dehydrated. They note he has full code. Spoke with Dr. Brown 1922 accepted for inpatient. Awaiting urine azithromycin added on. Discharge Plan Departure Patient Disposition: Admitted As Inpatient Clinical Impression: Pneumonia, Sepsis Admit Date/Time: 01/14/25 19:10 Admit Provider: Bebeto Brown
[2025-01-14 15:50] LABS: Alanine Aminotransferase 22 IU/L (<50); Albumin 4.3 g/dL (3.5-5.0); Albumin Globulin Ratio 1.3 (1.0-2.8); Alkaline Phosphatase 61 U/L (38-126); Blood Urea Nitrogen 63 mg/dL (9-20); Calcium 9.1 mg/dL (8.4-10.2); Carbon Dioxide 23 mmol/L (22-32); Chloride 104 mmol/L (98-107); Estimated Glomerular Filt Rate 34 mL/min (>60); Globulin 3.2 g/dL (1.7-4.1); Glucose 137 mg/dL (70-99); HEMOLYSIS < 15 (0-50); Lactate (Lactic Acid) 2.6 mmol/L (0.7-2.1); Potassium 4.4 mmol/L (3.4-5.1); Sodium 140 mmol/L (137-145); Total Protein 7.5 g/dL (6.3-8.2)
[2025-01-14 15:52] LABS: Add Manual Diff / Slide Review NO; Hematocrit 35.9 % (41-53); Hemoglobin 11.9 g/dL (13.5-17.5); Lymphocytes Absolute Auto 1100 /uL (1100-4500); Mean Corpuscular HGB Conc 33.1 % (30-36); Mean Corpuscular Hemoglobin 29.2 PG (26-34); Mean Corpuscular Volume 88.1 fL (80-100); Platelet Count 122 X10^3/uL (150-400)
--- NOTE | 2025-01-14 15:55 | DI.CT.S_ITS ---
PROCEDURE: CT KIDNEY URETER BLADDER (KUB) INDICATIONS: elevated creatinine, fever, recent UTI TECHNIQUE: Axial sections were acquired from the lung bases to the pubic symphysis. Coronal and sagittal reformats were performed. For radiation dose reduction, the following was used: automated exposure control, adjustment of mA and/or kV according to patient size. COMPARISON: None. FINDINGS: Image quality: Patient motion artifact. Lower Chest: Mild cardiomegaly, pacemaker. Mild bibasilar dependent change. URINARY: Right Kidney: No stones or hydronephrosis. Right Ureter: No hydroureter. Left Kidney: No stones or hydronephrosis. Left Ureter: No hydroureter. Bladder: Partially decompressed with mild wall thickening. ABDOMEN: Liver: No contour-deforming solid mass. Gallbladder: No radiopaque gallstones or wall thickening. Biliary ducts: No biliary dilation. Pancreas: No ductal dilation. Spleen: Size is within normal limits. Adrenal Glands: No adrenal nodules. Stomach and Bowel: Moderately-severe sigmoid diverticulosis without CT evidence of acute diverticulitis. Peritoneum: No abnormal intraperitoneal fluid. No free air. Ventral Wall: No hernia. Abdominal Nodes: No enlarged retroperitoneal or mesenteric lymph nodes. Vessels: Aorta and inferior vena cava are normal in size. PELVIS: Pelvic Organs: Severe prostatomegaly. Pelvic Nodes: Unremarkable. Miscellaneous: Bilateral fat containing inguinal hernias are seen. Bones: Diffuse degenerative change. No acute or chronic compression fractures. No lytic or blastic bony lesions. Remote posterior decompression and posterior lateral fusion from L3 through L5. IMPRESSION: No obstructing stones or hydronephrosis. Severe prostatomegaly, decompressed bladder with mild bladder wall thickening. Diverticulosis. Bilateral fat containing inguinal hernias. Comment: Recommend correlation with urine studies. Dictated by: Kevin Rojo M.D. on 01/14/2025 at 16:32 Approved by: Kevin Rojo M.D. on 01/14/2025 at 16:36
[2025-01-14 16:07] LABS: Procalcitonin 3.73 ng/mL (<0.5)
[2025-01-14] MEDS: SODIUM CHLORIDE 0.9% 1,000 ML 1000 ML IV ×2 (16:20→18:01)
[2025-01-14] MEDS: cefTRIAXone 2,000 MG in SODIUM CHLORIDE 0.9% 100 ML 200 MG IV (16:21)
[2025-01-14] MEDS: ACETAMINOPHEN 325 MG TABLET 975 MG PO (16:21)
[2025-01-14 17:10] LABS: Reflexed Lactate in 2 Hours Y
[2025-01-14 17:36] LABS: Influenza A - CEPHEID Flu A NEGATIVE (NEGATIVE); Influenza B - CEPHEID Flu B NEGATIVE (NEGATIVE)
[2025-01-14 17:45] LABS: COVID-19 CEPHEID 4-PLEX PCR Negative (Negative)
[2025-01-14 17:59] LABS: Lactate 2HR (Lactic Acid Rflx) 1.0 mmol/L (0.7-2.1)
--- NOTE | 2025-01-14 19:23 | W.PC.EDHO ---
Report received from EDGARDO Aparicio
[2025-01-14] MEDS: AZITHROMYCIN 250 MG TABLET 500 MG PO (19:29)
--- NOTE | 2025-01-14 19:38 | CM.DANOTE ---
DCP Assessment Note: Pt is a 84yo male, resident of [place], is admitted for pneumonia, sepsis; was diagnosed with a UTI two days ago. Hx of dementia. Pt lives in a house with spouse, Mariann. Pt's Primary Care Provider is Dr. Annetta Sanabria and insurance is Medicare and [employer]. Reviewed chart and discussed with multidisciplinary team pt's medical status and initial discharge needs. Per ED Provider, pt to be admitted for IV abx and fluids. DCP met w/patient at bedside; introduced self and role. Patient was found in bed, somnolent during assessment, /POA at bedside to give history. Pt reports patient is under the care of herself, and two caregivers ([facility] provides caregivers on and Tuesday for 5 hours/day and a private caregiver provides care on Mondays). Pt has a hx of [facility] in 2022, no home health history reported. Plan: Anticipating discharge home with spouse and caregivers, suspected home health referral if necessary. CM team will follow closely for coordination of discharge plans. [place] Mchugh [facility] Discharge Planning/Care Management CM Discharge Assessment Start: 01/14/25 19:36 Freq: Status: Active Protocol: Document 01/14/25 19:36 MW (Rec: 01/14/25 19:38 MW [id number]) Discharge Planning Assessment Assigned Discharge LOY [place] Can Operator Provider Dr. Annetta Sanabria Insurance Medicare,[facility] DPOA/Assigned Mariann Spouse Designee Name Contact Information [phone] Advance Directives? Yes Advance Directives Yes on File History Provided By Patient,Medical Record Prior Living House Arrangements Household Members spouse Type of Relies on Others transporation used prior to admit Independent with ADL No 's Is patient alert and No oriented? Caregiver for No Another DME Already Rented / FWW / Walker,Cane Owned Discharge Plan Home Transportation Spouse, Mariann Arrangement If patient plan is No home with home health: Has signed face to face form been completed? If patient plan is No SNF: Has PASSR been completed? Review Status In Process Please Provide Date 01/14/25 Initial DC Assessment Was Performed Next Review Type Continued Stay Review
--- NOTE | 2025-01-14 20:45 | W.PC.EDHO ---
Report given to EDGARDO Rodgers @[id number] (pt going to room 226)
[2025-01-14 22:18] LABS: Appearance Urine UA SL CLOUDY; Bilirubin Urine UA 1+ (NEGATIVE); Color Urine UA BROWN; Glucose Urine UA NEGATIVE (Negative); Ketones Urine UA 2+ (NEGATIVE); Leukocyte Esterase Urine UA NEGATIVE (NEGATIVE); Occult Blood Urine UA 3+ (Negative); Protein Urine UA 3+ (Negative); Specific Gravity Urine UA 1.025 (1.000-1.035); Urobilinogen Urine UA 1.0 E.U./dL (0.2); pH Urine UA 5.0 (4.5-8.0)
[2025-01-14 22:20] LABS: Culture Indicated Urine Cult Not Indicated; Ictotest Urine Negative (Negative); Nitrite Urine UA NEGATIVE (Negative)
[2025-01-14] MEDS: APIXABAN 5 MG TABLET PO (22:27)
[2025-01-14] MEDS: SODIUM CHLORIDE 0.9% 1,000 ML 100 ML IV (22:28)
[2025-01-14 23:18] LABS: Clostridium Difficile Tox PCR Negative for C. diff (Negative)
[2025-01-14 23:31] LABS: MRSA (Nasal) PCR NOT DETECTED (Not Detect)
[2025-01-15] VITALS (16 sets, daily range): BP systolic 126–152; BP diastolic 65–94; PULSE 59–60; RESP 11–30; TEMP 36.8–37.2; O2SAT 90–98
[2025-01-15] MEDS: LIDOCAINE 2% (GLYDO) 6 ML GEL TOP (01:35)
--- NOTE | 2025-01-15 02:31 | DI.CT.S_ITS ---
PROCEDURE: CT ABDOMEN PELVIS WO CON INDICATIONS: r/o bladder distention TECHNIQUE: CT of the abdomen and pelvis was obtained without intravenous contrast. Coronal and sagittal reformats were performed. For radiation dose reduction, the following was used: automated exposure control, adjustment of mA and/or kV according to patient size. COMPARISON: [facility], CT, CT KIDNEY URETER BLADDER (KUB), 01/14/2025, 15:55. FINDINGS: Image quality: Diagnostic Lower chest: Basal reticular changes. Increased left lung base round consolidation measuring 3.4 cm. No drainable effusion. Cardiomegaly Partially seen cardiac electrode leads. Coronary calcifications. Liver: Solid organs are not well assessed without IV contrast. Suspect right lobe granuloma. No contour deforming solid mass. Gallbladder and biliary system: Unremarkable Pancreas: Fatty atrophy of the pancreas. Suspect 1.6 cm pancreatic tail cystic lesions. Spleen: Unremarkable Adrenals: No discrete nodules Kidneys: Suspect small cysts are present. No definite contour deforming solid mass. No hydronephrosis. Vessels and lymph nodes: Mild aortoiliac atherosclerotic calcifications. Ectatic common iliac arteries measuring 1.8-1.9 cm bilaterally. No enlarged lymph nodes by size criteria. Bowel and peritoneum: No bowel obstruction. Liquid small and large bowel luminal contents. There is wall thickening focally in the sigmoid colon, not seen on recent prior imaging. Colonic diverticula, without focal diverticular inflammation. Nondilated appendix. No drainable abscess or ascites Body wall: Small central mesenteric fat stranding, possibly mesenteric panniculitis. Small fat containing umbilical hernia Pelvis: Moderate right and small left inguinal fat containing hernias. Prostatomegaly and heterogeneity, not well assessed on this study. Under distended urinary bladder with wall thickening. Catheter is in place. Bones: There are degenerative osseous changes. Lumbar postsurgical changes. IMPRESSION: Bladder is nondistended. Catheter is in place. Wall thickening and mild edema, correlate urinalysis. Increased left lung base round consolidation. Consider dedicated chest CT follow-up. This is likely infectious/inflammatory, given change from yesterday's CT. Pancreatic tail cystic lesions with background parenchymal atrophy. Nonurgent pancreas MRI may be obtained to further evaluate. Ectatic common iliac arteries. Liquid small and large bowel contents, possibly enterocolitis. There is wall thickening focally in the sigmoid colon, likely chronic diverticular disease. Consider colonoscopy correlation if not recently obtained. Other findings above. Due to additions to the preliminary report, the [facility] radiology call center was notified to call report on this study. Dictated by: Philip Rehman M.D. on 01/15/2025 at 7:14 Approved by: Philip Rehman M.D. on 01/15/2025 at 7:24
[2025-01-15 03:31] LABS: Clostridium difficile toxin AB Not Detected (Not Detect); Enteroaggregative E.coli Not Detected (Not Detect); Enteropathogenic E.coli Not Detected (Not Detect); Enterotoxigenic E.coli It/st Not Detected (Not Detect); Plesiomonsa shigelloides Not Detected (Not Detect); Shiga-like toxin-prod E.coli Not Detected (Not Detect)
[2025-01-15] MEDS: LEVOTHYROXINE 75 MCG TABLET 150 MCG PO (05:46)
[2025-01-15] MEDS: SODIUM CHLORIDE 0.9% 1,000 ML 100 ML IV (05:47)
--- NOTE | 2025-01-15 07:33 | PM.HP.1 ---
History of Present Illness History of Present Illness Date Patient Seen: 01/15/25 Time Patient Seen: 07:33 Date of Onset of Symptoms: 01/11/25 Chief complaint: UTI fever Narrative: This is a very pleasant 84-year-old male who resides at home with his here in and [facility]. Patient has multiple medical problems and history started several days ago when he developed dysuria and increasing urinary frequency with underlying chronic incontinence of urine and enlarged prostate. He went to the walk-in clinic he had a urine culture done on January 13 which showed [phone] Klebsiella. He was started on Keflex and had phoned the office yesterday stating that he was lethargic and she was having trouble getting him back in bed. She was directed to take him to the emergency room which she did several hours later because he was not improving. Patient was found to have possible pneumonia with possible UTI with sepsis based on leukocytosis and acute on chronic kidney failure as well as worsened mental status changes. Patient was started on ceftriaxone and azithromycin for suspected community-acquired pneumonia which would also treat UTI. Patient is cognitively improved today at the time my visit. His and [id number] are at bedside. History is a bit difficult patient has chronic pulmonary problems and seems that he has had a cough productive of phlegm that has been increased and progressively increasing over the last 2 weeks. He has also had progressive weakness. He has not had any rash or nausea or abdominal pain but yesterday in the ER he started having multiple stools and was found to have norovirus as well. Underlying he does have ulcerative colitis that has been fairly well controlled by the balsalazide. He was followed by [facility]. Twelve point review of systems Negative for any chest pain or palpitations Negative for any rashes Negative for any fevers Positive for cough Positive for some shortness a breath Diarrhea that started last night after presentation to the ER Dysuria and urinary frequency has been present with underlying chronic urinary incontinence and sometimes stool incontinence Otherwise 12 point review of systems is otherwise negative PMH: Dementia, moderate Degenerative joint disease Ulcerative colitis Pacemaker in situ CAD CHF psoriasis hypothyroidism hypertension hyperlipidemia Paroxysmal AFib a flutter on chronic anticoagulation Obstructive sleep apnea Family history: Parkinson's disorder in both mother and father. 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 He was and lives with his in and [place] independently in the home. He has 1 son who also lives in town and is actively involved in his life Health related behavior Patient does not smoke in his not been a smoker Patient is active despite his age and comorbidities Patient does not drink alcohol on a regular basis [facility] Medical History Lumbosacral radiculopathy Spondylolisthesis of lumbar region Lumbar spondylosis Low back pain BPH w urinary obs/LUTS Spinal stenosis, 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 Bladder outlet obstruction Benign prostatic hyperplasia Dementia Afib Balanitis Memory changes Hearing impaired Osteoarthritis Skin cancer BCC (basal cell carcinoma) (2022) Sensitive skin 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) History of urinary retention Lumbar spinal stenosis DJD of right shoulder Lower urinary tract symptoms History of phimosis of penis Male circumcision Acute metabolic encephalopathy Sepsis History of tobacco use Gross hematuria History of urinary tract infection Abnormal prostate by palpation Acquired phimosis of penis Pancreatic cyst Anemia Hypothyroidism associated with surgical procedure Hypertension Central sleep apnea Excessive daytime sleepiness Obstructive sleep apnea of adult Primary insomnia Restless legs syndrome (RLS) Snoring PANCREATIC CYSTS Rectal bleeding Chemosis of left conjunctiva Corneal abrasion Surgical History History of lumbar surgery History of reverse total replacement of right shoulder joint (05/26/22) Hx of tonsillectomy Hx of bilateral cataract extraction Hx of thyroidectomy (~1989) History of urologic surgery (04/02/21) History of ankle surgery History of total left knee replacement H/O shoulder surgery Family History Father Parkinson disease Mother Parkinson disease Sister Blood disorder Social History marital status: details: to Mariann number of children: 1 household members: spouse lives independently: Yes caregiver/support person: No pets and animals: No occupational status: previously employed current occupational exposures/hazards: No 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, 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 Smoking Status: Former smoker alcohol intake: current substance use type: does not use caffeine: Yes Meds Home Medications and Allergies Home Medications ?Medication ?Instructions ?Recorded ?Confirmed ?Type imqfilov-mq-fxcil 300 mcg-K 60 1 tab PO DAILY 01/26/21 01/14/25 History mcg-lycop 600 mcg-lutein 300 mcg tablet (Centrum Silver Ultra Men's) balsalazide 750 mg capsule 1,500 mg PO TID 02/05/21 01/14/25 History cholecalciferol (vitamin D3) 25 25 mcg PO DAILY 02/05/21 01/14/25 History mcg (1,000 unit) capsule levothyroxine 150 mcg tablet 150 mcg PO DAILY 02/05/21 01/14/25 History donepezil 10 mg tablet 5 mg PO QPM 05/20/22 01/14/25 History acetaminophen 325 mg tablet 650 mg PO Q6H PRN Pain 07/27/22 01/14/25 History apixaban 5 mg tablet (Eliquis) 5 mg PO BID 07/27/22 01/14/25 History memantine 10 mg tablet 10 mg PO BID 05/26/23 01/14/25 History bisoprolol fumarate 5 mg tablet 2.5 mg PO DAILY 02/22/24 01/14/25 History losartan 50 mg tablet 50 mg PO DAILY 02/22/24 01/14/25 History spironolactone 25 mg tablet 25 mg PO DAILY 02/22/24 01/14/25 History tamsulosin 0.4 mg capsule 0.4 mg PO ONCE PM #90 caps 05/14/24 01/14/25 Rx duloxetine 30 mg PO BID 05/16/24 01/14/25 History tramadol 25 mg tablet 25 mg PO Q6H PRN pain 11/01/24 01/14/25 History cephalexin 500 mg capsule 500 mg PO BID 7 days #14 caps 01/12/25 01/14/25 Rx Allergies Allergy/AdvReac Type Severity Reaction Status Date / Time chlorhexidine (From Allergy Severe Rash Verified 01/14/25 15:49 Hibiclens) mesalamine (MESALAMINE) AdvReac Severe Pain, Verified 01/14/25 15:49 diarrhea Exam Vital Signs (past 8 hours): - 01/15/25 00:00 01/15/25 00:30 01/15/25 01:00 Temperature Pulse Rate 60 60 59 L Respiratory Rate 20 14 11 L Blood Pressure Pulse Oximetry 94 96 96 Oxygen Flow Rate 01/15/25 01:30 01/15/25 02:00 01/15/25 02:30 Temperature Pulse Rate 59 L 60 60 Respiratory Rate 12 30 H 25 H Blood Pressure Pulse Oximetry 98 96 93 Oxygen Flow Rate 01/15/25 03:03 01/15/25 03:30 01/15/25 03:39 Temperature 98.2 F Pulse Rate 60 60 60 Respiratory Rate 15 24 28 H Blood Pressure Pulse Oximetry 93 96 96 Oxygen Flow Rate 2 01/15/25 03:39 01/15/25 04:00 Temperature Pulse Rate 60 Respiratory Rate 23 Blood Pressure 152/69 H Pulse Oximetry 90 L Oxygen Flow Rate Oxygen Delivery Method Nasal Cannula Oxygen Flow Rate 2 Narrative Exam Narrative: Afebrile vital signs are stable Patient is alert and oriented to person and knows who I am does not know date Patient was lying in the hospital bed in no apparent distress HEENT is unremarkable: Mucous membranes moist and pink Neck: Supple without adenopathy or masses Chest: Decreased breath sounds bibasilar with diffuse expiratory wheezes and scattered rhonchi No crackles Cor: Regular rate and rhythm with distant S1-S2 Abdomen: Positive bowel sounds, soft, nontender Genital shows slight irritation around the urethra on the glans but very mild Extremities no edema pulses intact Neurologic exam nonfocal, cranial nerves 2-12 grossly intact patient with no significant changes in his baseline mentation Objective Labs 01/15/25 07:38 01/15/25 07:38 Labs: Laboratory Results - last 24 hr 01/14/25 01/14/25 01/14/25 15:20 16:41 17:30 WBC 16.0 H RBC 4.07 L Hgb 11.9 L Hct 35.9 L MCV 88.1 MCH 29.2 MCHC 33.1 RDW 14.8 Plt Count 122 L Neut % (Auto) 84.8 H Lymph % (Auto) 6.8 L Laurel % (Auto) 8.2 Eos % (Auto) 0.0 L Baso % (Auto) 0.2 Neut # (Auto) 33529 H Lymph # (Auto) 1100 Laurel # (Auto) 1300 H Eos # (Auto) 0 Baso # (Auto) 0 Sodium 140 Potassium 4.4 Chloride 104 Carbon Dioxide 23 BUN 63 H Creatinine 1.92 H Estimated GFR 34 L BUN/Creatinine Ratio 32.8 H Glucose 137 H Lactate 2.6 H 1.0 Calcium 9.1 Total Bilirubin 1.8 H AST 36 ALT 22 Alkaline Phosphatase 61 Total Protein 7.5 Albumin 4.3 Globulin 3.2 Albumin/Globulin Ratio 1.3 Procalcitonin 3.73 H Urine Color Urine Appearance Urine pH Ur Specific [place] Urine Protein Urine Glucose (UA) Urine Ketones Urine Occult Blood Urine Nitrate Urine Bilirubin Ur Bilirubin Confirm Urine Urobilinogen Ur Leukocyte Esterase Urine RBC Urine WBC Ur Squamous Epith Cells Urine Bacteria Ur Culture Indicated? Vol Urine Centrifuged Nasal Screen MRSA (PCR) Stl C. cayetanensis PCR Stool Rotavirus (PCR) Stool Adenovirus (PCR) Stool Astrovirus (PCR) Stool Cryptosporidium PCR Stl E.coli Shiga Tox PCR St Sh/Enteroin Ecoli PCR Stl Enterotoxigenic E PCR Stool EPEC (PCR) Stl E. histolytica PCR Stool Giardia Lamblia PCR Stool Sapovirus (PCR) Stl P. shigelloides PCR St Y.enterocolitica PCR Stool Vibrio (PCR) Stl Vibrio cholerae PCR Stl Enteroaggr Ecoli PCR Stl Norovirus GI/GII PCR Campylobacter (PCR) C. difficile Tox (PCR) SARS-CoV-2 (PCR) Negative Influenza A (RT-PCR) Flu a negative Influenza B (RT-PCR) Flu b negative RSV (PCR) Negative Salmonella (PCR) 01/14/25 01/14/25 01/14/25 21:25 21:25 22:00 WBC RBC Hgb Hct MCV MCH MCHC RDW Plt Count Neut % (Auto) Lymph % (Auto) Laurel % (Auto) Eos % (Auto) Baso % (Auto) Neut # (Auto) Lymph # (Auto) Laurel # (Auto) Eos # (Auto) Baso # (Auto) Sodium Potassium Chloride Carbon Dioxide BUN Creatinine Estimated GFR BUN/Creatinine Ratio Glucose Lactate Calcium Total Bilirubin AST ALT Alkaline Phosphatase Total Protein Albumin Globulin Albumin/Globulin Ratio Procalcitonin Urine Color Brown Urine Appearance Sl cloudy Urine pH 5.0 Ur Specific [place] 1.025 Urine Protein 3+ H Urine Glucose (UA) Negative Urine Ketones 2+ H Urine Occult Blood 3+ H Urine Nitrate Negative Urine Bilirubin 1+ H Ur Bilirubin Confirm Negative Urine Urobilinogen 1.0 Ur Leukocyte Esterase Negative Urine RBC >100/hpf H Urine WBC 1-5/hpf Ur Squamous Epith Cells 5-10 /hpf H Urine Bacteria Occasional (0-1) Ur Culture Indicated? Cult not indicated Vol Urine Centrifuged 10ml (spun) Nasal Screen MRSA (PCR) Not detected Stl C. cayetanensis PCR Not detected Stool Rotavirus (PCR) Not detected Stool Adenovirus (PCR) Not detected Stool Astrovirus (PCR) Not detected Stool Cryptosporidium PCR Not detected Stl E.coli Shiga Tox PCR Not detected St Sh/Enteroin Ecoli PCR Not detected Stl Enterotoxigenic E PCR Not detected Stool EPEC (PCR) Not detected Stl E. histolytica PCR Not detected Stool Giardia Lamblia PCR Not detected Stool Sapovirus (PCR) Not detected Stl P. shigelloides PCR Not detected St Y.enterocolitica PCR Not detected Stool Vibrio (PCR) Not detected Stl Vibrio cholerae PCR Not detected Stl Enteroaggr Ecoli PCR Not detected Stl Norovirus GI/GII PCR Detected Campylobacter (PCR) Not detected C. difficile Tox (PCR) Negative for c. diff Not detected SARS-CoV-2 (PCR) Influenza A (RT-PCR) Influenza B (RT-PCR) RSV (PCR) Salmonella (PCR) Not detected Assessment & Plan Assessment & Plan narrative: 84-year-old male admitted with sepsis thought to be secondary to pneumonia possible UTI as well admitted to the hospital for further treatment Assessment 1. Sepsis syndrome with worsen mental status, initial elevated lactate and elevated procalcitonin though lactate decreased. Blood cultures pending. Patient acute on chronic kidney disease with a leukocytosis and afebrile. Aguirre that this is due to pneumonia possible concordant UTI Plan: Will continue with IV ceftriaxone and azithromycin to treat community-acquired pneumonia and possible UTI with possible Klebsiella. Will await blood cultures Urine culture not done due to not indicated. Reviewed blood culture done as outpatient urgent care clinic Will discontinue IV fluids. Patient got a total of about 4 L he was having good urine output and I suspect he may be slightly fluid overloaded. We will do PT OT and speech therapy. Will do bedside swallow eval due to history of pneumonia Will need repeat CT scan after patient resolves in 6-8 weeks ideally Assessment 2. History of congestive heart failure with last echo in July of 2023. Suspect possible fluid overload Plan: Will treat with Lasix 20 mg IV now and will follow. Will reassess labs in the morning. We will continue with outpatient medications of low-dose bisoprolol and spironolactone Assessment 3. Dementia with acute cognitive changes related to sepsis improved with IV hydration and IV antibiotics Plan: Will continue Aricept and Namenda as outpatient Will continue to treat underlying exacerbating etiologies Assessment 4. Hypoxemia suspect multifactorial including obstructive sleep apnea and fluid overload and pneumonia Plan: Will consult RT and give nebulizers as needed Will give Lasix 20 mg IV and reassess We will continue with supportive oxygen. will bring in mouth guard so that he can use this to sleep Assessment 5. P AFib/flutter currently in sinus rhythm Plan: Will continue with bisoprolol and spironolactone and Eliquis We will continue to monitor Assessment 6. Penile irritation with a history of balanitis but does not appear acutely to have but maybe it irritated simply from the catheter. Catheter was removed patient was able to urinate and having some incontinence. Bhakti consulted Urology who is available should we need assistance but it sounds like he was at a fairly unremarkable catheterization x2 in the ER last night. At this point I think the catheter was placed for mobility issues and cognition but I think it is very irritating so we will discontinue Assessment 7. Norovirus Plan: Will continue with supportive care will stop IV fluids will reassess tomorrow Assessment 8. Ulcerative colitis without acute issues right now Plan: Continue outpatient balsalazide. Consider steroids if diarrhea persists or there is other changes Assessment 9. Peripheral neuropathy Plan: Continue outpatient duloxetine Assessment 10. Degenerative arthritis Plan: Tramadol as needed, PT OT consulted Assessment 11. Hypothyroidism Plan: Continue outpatient levothyroxine Assessment 12. Incidental finding of pancreatic cyst on CT. This is not changed significantly he was had multiple CTs has not had an MRI of his abdomen but patient does have pacemaker so we are unable to do the MRI but will consider following up CT as outpatient after discussion with family as this has been stable although radiology did recommend it should be monitored for 10 years after it was 1st seen. Code status is full code at this time but did have discussion with family of the meaning of this and they will discuss and let me know if this changes 80 minutes was spent with the patient reviewing his clinic chart his hospital chart talking with physicians and nursing meeting with patient his and [id number] and examined the patient formulating a plan and documentation Disposition likely home with once improves with home health Time-Based Coding :: [TOTAL MINUTES] spent with patient and on the chart (including review of chart, obtaining history, exam, reviewing outside data, placing orders, documenting exam and treatment plan, and counseling patient) on [DATE]. Quality VTE Deep Vein Thrombosis/Pulmonary Embolism Present on Admission: No
[2025-01-15 07:46] LABS: Add Manual Diff / Slide Review NO; Hematocrit 33.1 % (41-53); Hemoglobin 10.9 g/dL (13.5-17.5); Lymphocytes Absolute Auto 1100 /uL (1100-4500); Mean Corpuscular HGB Conc 32.9 % (30-36); Mean Corpuscular Hemoglobin 29.0 PG (26-34); Mean Corpuscular Volume 88.4 fL (80-100); Platelet Count 100 X10^3/uL (150-400)
[2025-01-15 08:24] LABS: Alanine Aminotransferase 17 IU/L (<50); Albumin 3.3 g/dL (3.5-5.0); Albumin Globulin Ratio 1.3 (1.0-2.8); Alkaline Phosphatase 55 U/L (38-126); Blood Urea Nitrogen 55 mg/dL (9-20); Calcium 7.8 mg/dL (8.4-10.2); Carbon Dioxide 19 mmol/L (22-32); Chloride 112 mmol/L (98-107); Estimated Glomerular Filt Rate 56 mL/min (>60); Globulin 2.5 g/dL (1.7-4.1); Glucose 116 mg/dL (70-99); HEMOLYSIS 18 (0-50); Potassium 4.1 mmol/L (3.4-5.1); Sodium 144 mmol/L (137-145); Total Protein 5.8 g/dL (6.3-8.2)
[2025-01-15 08:33] LABS: NT-proBNP (BNP-Adult 18+) 6350 pg/mL (<450)
[2025-01-15] MEDS: AZITHROMYCIN 250 MG TABLET PO (09:46)
[2025-01-15] MEDS: APIXABAN 5 MG TABLET PO ×2 (09:46→20:16)
--- NOTE | 2025-01-15 11:07 | SLP.IPNOTE ---
Evaluation attempted around 11:00 am. Pt receiving nursing care and not available for some time. [employer]LE [employer]AYER HELPER to re-attempt later in day as schedule allows.
--- NOTE | 2025-01-15 13:57 | DI.ECHO.S_ITS ---
[facility] : : [id number] : : [place] : : [id number] : : Phone: [phone] Echocardiogram Report + + :Name: LUPE ARNOLD Study Date: 01/15/2025 Height: 68 in : :[facility] ReadingLocation: Weight: 185 lb : : Gender: Male BSA: 2.0 m2 : :: 1940 Age: 84 yrs BP: 130/94 mmHg: :Reason For Study: SOB : :Ordering Physician: JACQUELINE, : :RACHELLE Performed By: Sera Cabezas : :Referring: RACHELLE PHILLIPS : + + Interpretation Summary 1) Normal left ventricular size with mildly reduced systolic function (EF 45- 50%). 2) Mildly enlarged right ventricle with mildly reduced function. There is a pacemaker lead in the right ventricle. 3) There is mild aortic regurgitation. 4) Compared to the Echo done 03/01/2024, no signficant change. Procedure: A two-dimensional transthoracic echocardiogram with color flow and Doppler was performed. The study quality was technically adequate. Comparison is made with the echocardiogram of 03-01-24. The heart rate ranged between 61-68 bpm during the study. Left Ventricle: The left ventricle is normal in size and wall thickness. The ejection fraction is estimated to be 45-50%. Apical wall motion abnormality may reflect pacemaker activation. Diastolic function could not be accurately assessed due to paced rhythm. Right Ventricle: There is a pacemaker lead in the right ventricle. The right ventricle is mildly dilated. Right ventricular systolic function is mildly reduced. Atria: The left atrium is moderately dilated. Right atrial size is normal. The interatrial septum grossly appears intact with no obvious evidence for an atrial septal defect. Mitral Valve: The mitral valve leaflets appear mildly thickened. There is no mitral regurgitation noted. Aortic Valve: The aortic valve opens well. There is no hemodynamically significant valvular aortic stenosis. There is mild aortic regurgitation. Tricuspid Valve: The tricuspid valve leaflets are thin and pliable. There is a trace or physiologic amount of tricuspid regurgitation. The right ventricular systolic pressure is estimated to be at least 35 mmHg based on an estimated right atrial pressure of 3 mm Hg. Pulmonic Valve: The pulmonic valve is not well visualized. Great Vessels: The aortic root is normal size. The dimensions of the ascending aorta are normal. The aortic arch is normal in size. The IVC is of normal diameter and collapses greater than 50% with a sniff. This suggests a low right atrial pressure of 3 mm Hg. Pericardium/ Pleura There is no pericardial effusion. There is no pleural effusion. MMode/2D Measurements & Calculations LVIDd: 4.6 cm LVOT diam: 2.1 cm LVIDs: 3.1 cm Ao root diam: 3.6 cm FS: 33.7 % asc Aorta Diam: 3.2 cm IVSd: 1.1 cm Ao Arch Diam (Prox Trans): 2.9 cm LVPWd: 0.93 cm LV rubio. diameter/BSA (cm/m^2): 2.3 LV sys. diameter/BSA (cm/m^2): 1.5 LA A2 area: 32.4 cm2 RA long axis: 6.2 cm LA A4 area: 34.3 cm2 RA area: 20.1 cm2 LA length (vol): 8.1 cm RA vol: 55.1 ml LA vol: 116.9 ml RA : 27.9 ml/m2 LA vol index: 59.1 ml/m2 IVC diam: 2.0 cm RVD1 (basal): 3.4 cm TAPSE: 1.3 cm Doppler Measurements & Calculations Ao V2 max: 164.3 cm/sec LVOT Max Keenan: 91.0 cm/sec Ao V2 mean: 124.1 cm/sec LV V1 max P.3 mmHg Ao max P.8 mmHg LV V1 VTI: 15.9 cm Ao mean P.7 mmHg JAYLA(I,D): 1.6 cm2 Ao V2 VTI: 33.5 cm JAYLA(V,D): 1.8 cm2 sev ratio: 0.47 JAYLA indexed to BSA (cm^2/m^2): 0.80 MVA(VTI): 3.7 cm2 TR max keenan: 283.2 cm/sec TR max P.1 mmHg PA V2 max: 76.9 cm/sec PA V2 mean: 47.6 cm/sec PA mean P.1 mmHg PA pr(Accel): 46.5 mmHg MV V2 mean: 73.0 cm/sec SV(LVOT): 52.9 ml MV mean P.4 mmHg MV V2 VTI: 14.5 cm Reading Physician:05:55 PM
[2025-01-15] MEDS: cefTRIAXone 2,000 MG in SODIUM CHLORIDE 0.9% 100 ML 200 MG IV (15:20)
[2025-01-15] MEDS: FUROSEMIDE 20 MG/2 ML VIAL IV (15:21)
--- NOTE | 2025-01-15 15:52 | ST.IPCSEOM ---
Visit Care Team Role Provider Type Annetta Sanabria MD Family Provider Physician Primary Care Provider Specialty: Family Practice Address: [address] [place] [address], [facility] [place], [address] Email: [email or web address] Amanda Mireles DO Emergency Provider Physician Referring Provider Specialty: Emergency Medicine Address: [address] [place] [address], [facility] Email: [email or web address] Bebeto Brown MD Admit Provider Physician Attending Provider Specialty: Family Practice Address: [address] [place] [address], [facility] [place], [address] Email: [email or web address] Past Medical History (Last Reviewed 01/15/25 @ 07:35 by Annetta Sanabria MD) Abnormal prostate by palpation (Medical) Acquired phimosis of penis (Medical) Acute metabolic encephalopathy (Medical) Sepsis, UTI-admit to 01/26/21 Afib (Medical) s/p right shoulder replacement surgery 05/26/22, converted to NSR, now on Eliquis Anemia (Medical) Balanitis (Medical) BCC (basal cell carcinoma) (Medical 2022) Removed by left eye area Benign prostatic hyperplasia (Medical) Bladder outlet obstruction (Medical) BPH w urinary obs/LUTS (Medical) Central sleep apnea (Medical) Chemosis of left conjunctiva (Medical) Corneal abrasion (Medical) Degenerative joint disease of knee (Medical) Dementia (Medical) DJD of right shoulder (Medical) Excessive daytime sleepiness (Medical) Gross hematuria (Medical) Hearing impaired (Medical) Bilateral hearing aids History of phimosis of penis (Medical) History of tobacco use (Social Hx) History of urinary retention (Medical) History of urinary tract infection (Medical) Hypertension (Medical) Hypothyroidism associated with surgical procedure (Medical) Low back pain (Medical) Lower urinary tract symptoms (Medical) Lumbar spinal stenosis (Medical) Lumbar spondylosis (Medical) Lumbosacral radiculopathy (Medical) Male circumcision (Medical) Memory changes (Medical) Obstructive sleep apnea of adult (Medical) BiPAP Osteoarthritis (Medical) Pacemaker (Medical 04/16/22) Complete heart block Pancreatic cyst (Medical) PANCREATIC CYSTS (Medical) Primary insomnia (Medical) Rectal bleeding (Medical) Restless legs syndrome (RLS) (Medical) Sensitive skin (Medical) Sepsis (Medical) UTI - admit to 01/26/21-02/01/21 Skin cancer (Medical) Removed from right breast Snoring (Medical) Spinal stenosis, lumbar region with neurogenic claudication (Medical) Spondylolisthesis of lumbar region (Medical) Speech-Language Pathology Swallow Evaluation [employer] Clinical Swallow Evaluation Start: 01/15/25 15:12 Freq: Status: Active Protocol: Document 01/15/25 15:12 SS (Rec: 01/15/25 15:21 SS [email or web address]) Clinical Swallow Evaluation Session Time Visit Start Time 14:40 Visit Stop Time 15:05 Total Visit Minutes [address] Bebteo Brown MD Reason for Referral PNA Setting Assessment Location Acute Care Visit Type Note Type Initial evaluation Next Note Type Next Note Type Treatment Note Patient Information Identification Type Name History Per ER documentation: 84-year-old male history atrial fibrillation Eliquis, BPH, pacemaker, hypothyroidism, BASILIO, dementia brought in by EMS for reported fever and generalized weakness. Patient can tell me his name, he is unsure why he is here, he has not no complaints currently. He is not able provide much past medical history. He denies any chest pain or shortness of breath, denies fevers, chills, no nausea or vomiting, and he denies any GI or urinary symptoms. Per EMS patient had incontinence earlier this week was at urgent care was found to have a UTI. Per EMS patient is at his usual baseline of mentation. Clinical Swallowing evaluation completed to assess current swallowing function and aspiration risk. Subjective Chart reviewed and RN consulted. Per RN, no overt s/sx Observations of aspiration noted with intake, though intake has been minimal since admission, with pt mostly drinking fluids. Pt asleep upon [employer] arrival, but easily woke up. His spouse was at bedside and provided case history. Pt spouse, pt has been intermittently coughing, but she has not noted whether it is related to intake or not. No swallowing issues prior to admission. Pt's spouse denied unintentional weight loss, GERD, or esophageal issues. She did report one occurrence of PNA about a year ago. Pt consumed a regular diet with thin liquids at home. Intermittent cough at baseline. Reported by Patient/Caregiver Other Symptoms History of aspiration or pneumonia Comment No other symptoms reported by pt or spouse. Current Diet Regular (IDDSI 7) Baseline Feeding Independent in self-feeding Method Results BASELINE LEVEL OF FUNCTION Solids: Regular Liquids: Thin Medications: Whole with liquid wash Functional Oral Intake Scale (FOIS): FOIS level 7 FOIS Miller: Level 1 = no oral intake, Level 2 = tube dependent with minimal/inconsistent oral intake, Level 3 = tube supplements with consistent oral intake, Level 4 = total oral intake of a single consistency, Level 5 = total oral intake of multiple consistencies requiring special preparation, Level 6 = total oral intake with no special preparation, but must avoid specific foods or liquid items, Level 7 = total oral intake with no restrictions The IDDSI Framework Protocol: IDDSI.1 Objective Assessment Mental Status Alert,Responsive,Cooperative Oral Integrity WFL Dentition Within normal limits Lip Function Within normal limits Tongue Function Within normal limits Jaw Function Within normal limits Hard/Soft Palate Within normal limits Function Respiratory Mild impairment Sufficiency Comment Pt on 2L via NC at time of assessment. SpO2 around 92 at rest. Dipped to mid 80s with intake, but quickly recovered. Pt?s oral health is good. Pt has his own dentition with dental work noted. His spouse reports he typically brushes and flosses his teeth twice daily. Oral care completed prior to PO trials. Oral health status is one of the three pillars of aspiration pneumonia, with research showing that poor oral health increases the risk of pulmonary compromise associated with aspiration . CRANIAL NERVE EXAM CN V (Trigeminal): intact b/l CN VII (Facial): intact b/l CN IX/X (Glossopharyngeal/Vagus): intact b/l CN XII (Hypoglossal): intact b/l Food and Liquid Trials Position During Upright (90 degrees) Assessment Liquids Trialed Thin (IDDSI 0) Solid Trials Purred (IDDSI 4),Soft & Bite-sized (IDDSI 6),Regular ( IDDSI 7) Administration Type Tea spoon,Cup single sip,Cup consecutive sips,Straw, Self-feeding Oral Impairment Within functional limits Oral Phase Comments Pt observed across trials of thin liquids (>3 oz water) via tsp, cup, and straw, puree via tsp (apple sauce), soft/bite sized via tsp (diced peaches), and regular ( cracker). Pt required set-up assistance but was able to feed himself. Pt exhibited adequate bolus retrieval and good oral containment across trials. Pt exhibited timely bolus manipulation and reduced oral clearance resulting in mild oral residue with regular texture. Pt used liquid wash independently to clear oral residue. Pharyngeal Moderately impaired Impairment Pharyngeal Phase Clinical signs/symptoms of possible pharyngeal Comments dysphagia included inconsistent immediate coughing of thin liquids (increasingly with large sips and with use of straw). No overt s/sx of aspiration with single sips of thin liquids via cup or solids. Vocal quality remained clear across trials. No globus sensation reported. Fatigue/Endurance Mild fatigue Comment Increased work of breathing noted with intake. Pt benefited from taking frequent breaks. See above. [place] Swallow No Protocol Results Cognitive Screen: Baseline dementia, difficulty responding and following instructions consistently. Not functionally able to follow instructions to drink sequentially. Results with 3oz water test: n/a Results with cracker: n/a The IDDSI Framework Protocol: IDDSI.1 Findings Swallowing Function Pharyngeal phase dysphagia Severity of Swallow Mildly-moderately impaired Impairment Contributing Factors Reduced alertness or attention,Difficulty following to Swallow directions,Impaired airway protection Impairment Prognosis Fair Based on Cognitive status,Age,Comorbidities Comment Pt presents with WFL oral phase of swallowing and concern for possible pharyngeal phase dysphagia given presence of signs/symptoms of aspiration (coughing with thin liquids with using straw or taking larger sips). Pt did present with cough about 2 minutes after the swallow; however, it is difficult to differentiate baseline cough from cough immediately after thin liquids via straw to determine whether it may be related to aspiration. Pt is felt to be at low risk for aspiration as he demonstrated intermittent overt s/sx of aspiration liquids via straw only, suspect due to impulsivity with sip size and minimal oral hold with use of straw. However, unable to rule out silent aspiration without additional instrumental testing. Modified Barium Swallow Study (MBSS), to visualize and assess swallow function and anatomy, determine aspiration risk, make appropriate and updated diet and treatment recommendations, as well as to identify need for additional referrals. Pt and family verbalized understanding and agreement with completion of MBSS. MD notified to place MBSS order. Recommendations as follows: 1. Please continue to provide BID oral care with to minimize risk of aspiration and colonization of oral pathogens. 2. Recommend diet of regular solids (IDDSI 7) and thin liquids (IDDSI 0) with 1:1 supervision and aspiration precautions as below. 3. Thin liquids via cup only (no straws). Pt able to take small single sips independently when presented with cup. 4. Modified Barium Swallow Study (MBSS) to confirm/rule out and guide POC. Pt and family verbalized understanding/agreement with diet recommendation and strategies pending MBSS. Impact on Safety and Risk for aspiration,Risk for inadequate nutrition/ Functioning hydration Recommendations Instrumental Yes Assessment Swallowing Treatment Yes Recommended Solids Regular (IDDSI 7) Recommended Liquids Thin (IDDSI 0) Safety Precautions/ 1 to 1 close supervision,Feed only when alert,Reduce Swallowing distractions,Remain upright (90 degrees) during all Recommendations oral intake,Upright position at least 30 minutes after meals,Small bites and sips when eating,Slow rate; swallow between bites,No straw Medication As Tolerated Recommendations Discharge shelter facility,Home with Home Health Recommendations Referrals Recommended Dietary Referrals Education Patient/Caregiver Described results of evaluation,Patient expressed Education understanding of evaluation,Patient expressed agreement with goals & treatment plans Goals Short-term Goals Patient will complete MBSS to further evaluate swallowing pathophysiology and determine next steps in POC. Long-term Goals Patient will safely tolerate least restrictive diet consistency to allow for safe consumption of daily meals without s/sx of aspiration.
[2025-01-15] MEDS: TAMSULOSIN 0.4 MG CAPSULE PO (17:45)
[2025-01-15] MEDS: DONEPEZIL 5 MG TABLET 10 MG PO (17:45)
[2025-01-15] MEDS: SODIUM CHLORIDE 0.9% FLUSH 10 ML IV (20:17)
[2025-01-15] MEDS: MEMANTINE HCL 5 MG TABLET 10 MG PO (20:17)
[2025-01-15] MEDS: BALSALAZIDE 750 MG 1500 EACH PO (20:52)
[2025-01-16] VITALS (9 sets, daily range): BP systolic 132–161; BP diastolic 63–84; PULSE 59–80; RESP 16–21; TEMP 36.5–36.8; O2SAT 93–98
[2025-01-16 04:45] LABS: Add Manual Diff / Slide Review NO; Hematocrit 31.8 % (41-53); Hemoglobin 10.5 g/dL (13.5-17.5); Lymphocytes Absolute Auto 1700 /uL (1100-4500); Mean Corpuscular HGB Conc 33.2 % (30-36); Mean Corpuscular Hemoglobin 29.2 PG (26-34); Mean Corpuscular Volume 87.9 fL (80-100); Platelet Count 113 X10^3/uL (150-400)
[2025-01-16 04:57] LABS: Blood Urea Nitrogen 48 mg/dL (9-20); Calcium 7.9 mg/dL (8.4-10.2); Carbon Dioxide 20 mmol/L (22-32); Chloride 111 mmol/L (98-107); Estimated Glomerular Filt Rate > 60 mL/min (>60); Glucose 134 mg/dL (70-99); HEMOLYSIS 16 (0-50); Potassium 3.7 mmol/L (3.4-5.1); Sodium 141 mmol/L (137-145)
[2025-01-16 05:05] LABS: NT-proBNP (BNP-Adult 18+) 6200 pg/mL (<450)
[2025-01-16] MEDS: LEVOTHYROXINE 75 MCG TABLET 150 MCG PO (06:01)
[2025-01-16] MEDS: LOSARTAN 50 MG TABLET PO (09:50)
[2025-01-16] MEDS: MULTIVITAMIN 1 TABLET 1 TAB PO (09:51)
[2025-01-16] MEDS: AZITHROMYCIN 250 MG TABLET PO (09:51)
[2025-01-16] MEDS: SPIRONOLACTONE 25 MG TABLET PO (09:51)
[2025-01-16] MEDS: APIXABAN 5 MG TABLET PO ×2 (09:51→21:11)
[2025-01-16] MEDS: CHOLECALCIFEROL (VITAMIN D3) 1,000 UNIT TABLET 1000 UNIT PO (09:51)
[2025-01-16] MEDS: MEMANTINE HCL 5 MG TABLET 10 MG PO ×2 (09:51→21:11)
[2025-01-16] MEDS: SODIUM CHLORIDE 0.9% FLUSH 10 ML IV ×2 (09:52→21:12)
[2025-01-16] MEDS: POTASSIUM CHLORIDE 20 MEQ TAB 40 MEQ PO (09:53)
[2025-01-16] MEDS: FUROSEMIDE 20 MG/2 ML VIAL IV (09:54)
[2025-01-16] MEDS: BALSALAZIDE 750 MG 1500 EACH PO ×3 (10:06→21:11)
--- NOTE | 2025-01-16 10:45 | ST.SWALLOW ---
Visit Care Team Role Provider Type Annetta Sanabria MD Family Provider Physician Primary Care Provider Specialty: Family Practice Address: [address] [place] [address], [address], [place], [address] Email: [email or web address] Amanda Mireles DO Emergency Provider Physician Referring Provider Specialty: Emergency Medicine Address: [address] [place] [address], [address] Email: [email or web address] Bebeto Brown MD Admit Provider Physician Attending Provider Specialty: 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 Bebeto Brown MD Reason for Referral PNA Setting Setting Acute Care Patient Information Identification Type Name,Date of Patient History Per ER documentation: 84-year-old male history atrial fibrillation Eliquis, BPH, pacemaker, hypothyroidism, BASILIO, dementia brought in by EMS for reported fever and generalized weakness. Patient can tell me his name, he is unsure why he is here, he has not no complaints currently. He is not able provide much past medical history. He denies any chest pain or shortness of breath, denies fevers, chills, no nausea or vomiting, and he denies any GI or urinary symptoms. Per EMS patient had incontinence earlier this week was at urgent care was found to have a UTI. Per EMS patient is at his usual baseline of mentation. Clinical Swallowing evaluation completed on 01/16 to assess current swallowing function and aspiration risk. Pt demonstrated overt s/sx of aspiration with thin liquids (increasing with use of straw and larger sip size). Modified Barium Swallow Study (MBSS) completed to visualize and assess swallow function and anatomy, determine aspiration risk, make appropriate and updated diet and treatment recommendations, as well as to identify need for additional referrals. Subjective Pt appeared more alert today and his cognition appears Observations improved from yesterday. Please see CSE from 01/16 for oral motor evaluation, oral health information, and other subjective observations. Patient Positioning Position View A/P Imaging Lateral View Textures Administered Trials Presented Thin Liquid via Spoon (IDDSI 0),Thin Liquid via Cup ( IDDSI 0),Thin Liquid via Straw (IDDSI 0),Puree (IDDSI 4 ),Regular (IDDSI 7) Barium Tablet No The IDDSI Framework Protocol: IDDSI.1 Oral Impairment Source: The Modified Barium Swallow Impairment Profile (MBSImP??) Lip Closure No labial escape Tongue Control Cohesive bolus between tongue to palatal seal During Bolus Hold Bolus Preparation/ Timely & efficient chewing & mashing Mastication Bolus Transport/ Brisk tongue motion Lingual Motion Oral Residue Trace residue lining oral structures Location Floor of mouth,Palate,Tongue Initiation of Bolus head at posterior laryngeal surface of epiglottis Pharyngeal Swallow Additional Oral Within functional levels. Oral acceptance of bolus was Impairment WFL. Patient demonstrated adequate labial seal. Bolus Observations formation was organized and efficient. Anterior- posterior transit of the bolus was timely. Mastication was timely. There was trace amount of oral residue, primarily with solids, requiring multiple attempts at AP transit to propel posteriorly. Oral bolus control was mildly reduced with larger amounts of bolus, but did not impact swallowing safety/efficiency. Pharyngeal Impairment Source: The Modified Barium Swallow Impairment Profile (MBSImP??) Soft Palate No bolus between soft palate & pharyngeal wall Elevation Laryngeal Elevation Comp.sup.move.thyroid cart.w/comp.approx.arytenoids to epiglot petiole Anterior Hyoid Complete anterior movement Excursion Epiglottic Movement Partial inversion Laryngeal Vestibular Incomplete; narrow column air/contrast in laryngeal Closure vestibule Pharyngeal Stripping Present - complete Wave Pharyngoesophageal Complete distention & complete duration; no obstruction Segment Opening of flow Tongue Base Narrow column of contrast/air betwn tongue base & post. Retraction pharyngeal wall Pharyngeal Residue Collection of residue within/on pharyngeal structures Location Diffuse (>3 areas) Additional Within functional limits. Swallow was initiated with Pharyngeal liquids at the pyriform sinuses. Swallow was initiated Impairment with solids at the base of tongue. Velopharyngeal Observations closure was WFL. Hyoid/laryngeal elevation was judged to be complete. The epiglottis did invert; inversion is characterized as complete. Pharyngeal stripping wave was present and complete. Cricopharyngeal opening appeared adequate and did not appear to impede bolus flow into the esophagus. Pt demonstrated mildly reduced tongue base retraction, leading to incomplete laryngeal vestibular closure and mild post-swallow residue, primarily at the base of tongue, posterior pharyngeal wall, valleculae and pyriform sinuses across textures. Pt sensate to residue most of the time and independently clear with dry swallows, with only trace residue left occasionally. Penetration / Aspiration: Intermittent flash penetration occurred during the swallow with thin liquids and was more frequent when pt used straw, leading to larger bolus size and reduced control of bolus. Penetration did not reach the level of the vocal folds and cleared spontaneously. Penetration / Aspiration Scale (PAS): Thin 2: Material enters the airway, remains above the vocal folds, and is ejected from the airway [place] / Mildly Thick DNT Honey / Moderately Thick DNT Puree / Semi-solid 1: Material does not enter airway Soft Solid DNT Regular 1: Material does not enter airway Tablet DNT A/P View The IDDSI Framework Protocol: IDDSI.1 Clinical Impressions Dysphagia Type WNL Findings MBSS revealed within functional limits swallowing function with no impact to swallowing efficiency or safety. Pt did present with mildly delayed swallow initiation, reduced laryngeal vestibule closure, and reduced base of tongue retraction resulting in consistent flash penetration with liquids that cleared from airway spontaneously. Increased flash penetration present with large sips of liquid via straw that mat result in deeper penetration if pt is not fully awake and alert. Recommend no straws and use of single controlled sips of thin liquid, particularly when cognitive function fluctuates and pt is not fully alert /oriented. Overall, the pt presents with a functional swallow. Observed mildly delayed swallow initiation, reduced laryngeal vestibule closure, and reduced base of tongue retraction are normal variations given pt?s age, though should be monitored if there is a change to pt?s immune system/health status. Results, images, and recommendations were reviewed with the pt. Plan to follow up x1 with pt?s spouse and nursing to review MBSS results and recommendations. Patient Appropriate Yes: See above for Therapy Recommendations Diet Liquids Order Thin (IDDSI 0) Diet Order Regular (IDDSI 7) Medication As Tolerated Recommendation Aspiration Precautions Recommended Upright at 90 Degrees,Frequent Rest Periods,Small Bites Precautions /Sips,Liquids from Cup Treatment Plan Therapy Inpatient Speech Therapy Recommendations Placement Home Recommendation After Discharge
--- NOTE | 2025-01-16 10:51 | PC.NURSE ---
[id number] PT BACK FROM BARIUM SWALLOW. DR PHILLIPS AT BEDSIDE TO SEE PATIENT. MD TO ORDER 20 MG LASIX IV PUSH ONCE AND 40 MEQ POTASSIUM PO ONCE NOW. ALSO REQUESTING TO ORDER PT/OT AND TO TRIAL PATIENT ON ROOM AIR.
--- NOTE | 2025-01-16 12:19 | OT.IP.EVAL ---
Current Diagnoses Sepsis, unspecified organism (01/14/25) Past Medical History (Last Reviewed 01/15/25 @ 07:35 by Annetta Sanabria MD) Abnormal prostate by palpation Acquired phimosis of penis Acute metabolic encephalopathy Afib Anemia Balanitis BCC (basal cell carcinoma) (2022) Benign prostatic hyperplasia Bladder outlet obstruction BPH w urinary obs/LUTS 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 Corneal abrasion Degenerative joint disease of knee Dementia DJD of right shoulder Excessive daytime sleepiness Gross hematuria Hearing impaired History of phimosis of penis History of tobacco use History of urinary retention History of urinary tract infection Hypertension Hypothyroidism associated with surgical procedure Low back pain Lower urinary tract symptoms Lumbar spinal stenosis Lumbar spondylosis Lumbosacral radiculopathy Male circumcision Memory changes Obstructive sleep apnea of adult Osteoarthritis 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) Pancreatic cyst PANCREATIC CYSTS Primary insomnia Rectal bleeding Restless legs syndrome (RLS) Sensitive skin Sepsis Skin cancer Snoring Spinal stenosis, lumbar region with neurogenic claudication Spondylolisthesis of lumbar region Surgical History (Last Reviewed 01/15/25 @ 07:35 by Annetta Sanabria MD) H/O shoulder surgery History of ankle surgery History of lumbar surgery 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 History of urologic surgery (04/02/21) Hx of bilateral cataract extraction Hx of thyroidectomy (~1989) Hx of tonsillectomy Occupational Therapy Inpatient Evaluation/Re-Eval M1 OT IP Prior Functional Status Start: 01/16/25 12:18 Freq: Status: Active Protocol: Document 01/16/25 12:19 [facility] (Rec: 01/16/25 12:33 [facility] Desktop) Medical Review Prior Functional Status Communication I Mobility and Gait Per pt's daughter in law, pt uses a 4ww. Activities of Daily Pt has assist with showers and later also for ADL needs Living and IADL's . Prior Functional Pt has caregivers to assist 4-5 hours 5x/week. Level (Other details ) Social History Household Members spouse Living Arrangements House Number of Floors ( Two Floors Floors) Number of Stairs To Pt has an elevator. Enter/Railing? Home Environment Standard Height Toilet,Walk in Shower,Elevator Home Equipment Four Wheel Walker,Straight Cane,Grab Bars Near Toilet M2 OT-IP Current Condition Start: 01/16/25 12:18 Freq: Status: Active Protocol: Document 01/16/25 12:19 [facility] (Rec: 01/16/25 12:33 [facility] Desktop) Occupational Therapy Current Condition Current Condition Evaluation Date 01/16/25 Treatment Diagnosis UTI, sepsis, PNA Diagnosis Onset Date 01/14/25 M3 OT- IP Subjective and Pain Start: 01/16/25 12:18 Freq: Status: Active Protocol: Document 01/16/25 12:19 [facility] (Rec: 01/16/25 12:33 [facility] Desktop) OT- Subjective Occupational Therapy Visit Type Type Initial Evaluation Visit Start Time 11:55 Visit Stop Time 12:14 Occupational Therapy Visit Comments Patient Comments Pt agreed to get up for lunch. Patient/Caregiver TO go home. Goals OT Pain Assessment Pain When Pain Assessed At Rest Pain Present Pain Present Pain Reported Location Abdomen Pain Behaviors Facial Grimacing,Holding Area M4 OT- IP ADL's Start: 01/16/25 12:18 Freq: Status: Active Protocol: Document 01/16/25 12:19 [facility] (Rec: 01/16/25 12:33 [facility] Desktop) OT [id number] Comments OT Self-Feeding Not at meal time. Comments OT ADL-Grooming General Evaluation Grooming Ability Standby Assistance Comments OT Grooming Comments Pt able to wash his face and hands after set-up of wash cloth. OT ADL-Oral Care Comments Oral Care Comments Not performed. OT ADL-Dressing General Eval Lower Body Dressing Maximum Assistance Ability Areas Needing Underpants/Brief,Socks Assistance OT ADL-Toileting General Evaluation Toileting Ability Maximum Assistance Areas Needing Manage Clothing,Perform Perineal Hygiene Assistance Comments OT Toileting Assist for clothing and hygiene needs at this time. Comments OT ADL-Bathing Comments OT Bathing Comments Pt will continue to benefit from assist. M5 OT- IP IADL's Start: 01/16/25 12:18 Freq: Status: Active Protocol: Document 01/16/25 12:19 [facility] (Rec: 01/16/25 12:33 [facility] Desktop) OT-Instrumental Activities of Daily Living Home Safety Awareness Home Safety Comments Pt has dementia per chart. Medication Management Medication Caregiver Administers Management Money Management Money Management Caregiver Provides Assistance Meal Preparation Meal Preparation Caregiver Provides Assist Customer Success Director Customer Success Director Caregiver Provides Assist M6 OT- IP Functional Cognition Start: 01/16/25 12:18 Freq: Status: Active Protocol: Document 01/16/25 12:19 [facility] (Rec: 01/16/25 12:33 [facility] Desktop) Cognitive Factors Limiting Selfcare Function Cognitive Ability Level of Alertness Alert Patient Orientation Name Attention Span Capable of Focused Attention,Capable of Sustained Ability Attention Ability to Follow Able to Follow One Step Commands with Increased Time, Commands Able to Follow One Step Commands with Repetition Memory Description Short Term Impaired Safety Awareness Underestimates Need for Assistance Cognitive Comments Cognitive Assessment Pt able to follow commands for ADL and mobility. Pt is Comments a little impulsive but also hard of hearing. OT- Vision and Hearing OT- Hearing Assessment OT- Hearing Hearing Impaired,Use of Hearing Aids Assessment OT- Vision Assessment Visual Acuity Glasses For Reading Visual Attentiveness WFL Occular Pursuits WFL M7 OT- IP Mobility and Balance Start: 01/16/25 12:18 Freq: Status: Active Protocol: Document 01/16/25 12:19 [facility] (Rec: 01/16/25 12:33 [facility] Desktop) OT- Bed Mobility Assessment Supine to Sit Supine to Sit Assist Minimal Assistance OT-Transfer Assessment Sit to and From Stand Sit to and from Minimal Assistance Stand Transfers Transfer Ability Contact Guard Assistance,Minimal Assistance Technique Transfer Destination Bed,Chair Transfer Technique Stand Step Pivot Devices Transfer Assistive Gait Belt,Front Wheeled Walker Devices Comments Mobility Comments ELI to help get his trunk upright. CGA to stand and ELI to transfer to the BSC as pt having pain and urgency. After BM and assist from nursing aid for hygiene needs CGA with FWW to get to the recliner. OT- Balance Assessment Sitting Balance and Reactions Static Sitting Normal Balance Ability Dynamic Sitting Good Balance Ability Standing Balance and Reactions Static Standing Good Balance Ability Dynamic Standing Fair Balance Ability M8 OT- IP Objective Assessments Start: 01/16/25 12:18 Freq: Status: Active Protocol: Document 01/16/25 12:19 [facility] (Rec: 01/16/25 12:33 [facility] Desktop) OT Gross Range of Motion Upper Extremity Range of Motion ROM Impairments Not able to formally assess. OT Strength Upper Extremity Strength Assessment Within Functional Limits M9 OT- IP Assessment and Plan Start: 01/16/25 12:18 Freq: Status: Active Protocol: Document 01/16/25 12:19 [facility] (Rec: 01/16/25 12:33 [facility] Desktop) OT Summary Assessment and Plan Potential Rehabilitation Good Potential Analytic Complexity Moderate at Evaluation Summary OT Impairments Pain,Balance,Functional Cognition,Functional Mobility, Self-Feeding,Grooming,Dressing,Toileting,Toilet Transfers,Shower Transfers,Activity Tolerance Progress Towards Slow Progress due to Pain,Slow Progress due to Medical Goals Issues Assessment Summary Pt MOD complexity and main barriers are pain, vc for safety of FWW, and will need more assist at home for ADL and mobility needs. Pt on 2L at 97% and on RA from 90-97%. Pt to go home with 24/7 assist and home health when medically stable. Goals Self-Feeding Goal Standby Assistance Grooming Goal Standby Assistance Dressing Goal Standby Assistance Toileting Goal Minimal Assistance Toilet Transfer Goal Standby Assistance Shower Transfer Goal Contact Guard Assistance Days to Meet Goals 7 Frequency of Treatment Other frequency 5x/week Treatment Plan OT Treatment Plan ADL Training,Functional Mobility,Patient/Family Education,Discharge Planning Discharge Recommendations OT Discharge Home with 24/7 Assist Available,Home Health Recommendations Transportation Needs Private Vehicle at Discharge
--- NOTE | 2025-01-16 13:42 | PM.PN.1 ---
Subjective Subjective Date Patient Seen: 01/16/25 Time Patient Seen: 13:42 Interval history: Patient had unremarkable night. He is feeling much better. He is still having loose stools but is not having bladder spasms anymore since the catheter has been removed. He is incontinent of urine but this is a chronic thing for him. He is not having any difficulty urinating. He is still on oxygen at 2 L nasal cannula but O2 sats are in the high 90s. He is not very hungry but is able to eat. He denies any chest pain or shortness breath and has had no fever. Although patient does have slight shortness of breath with exertion 12 point review of systems otherwise is negative Exam Vital Signs (past 8 hours): - 01/16/25 07:00 01/16/25 07:45 01/16/25 08:16 Temperature Pulse Rate Respiratory Rate Blood Pressure Pulse Oximetry 96 97 Oxygen Delivery Method Nasal Cannula Nasal Cannula Room Air Oxygen Flow Rate 2 0 01/16/25 08:16 01/16/25 12:13 Temperature 98.3 F 97.7 F Pulse Rate 73 68 Respiratory Rate 16 17 Blood Pressure 143/84 H 141/75 H Pulse Oximetry 97 95 Oxygen Delivery Method Oxygen Flow Rate 0 0 Fraction of Inspired Oxygen 28 SaO2/FiO2 Ratio 339 Oxygen Delivery Method Room Air Oxygen Flow Rate 0 Narrative Exam Narrative: Afebrile vital signs are stable. O2 sats on room air are now 93%. Patient is more alert today more engaged able to give history of this morning HEENT unremarkable Neck is supple without adenopathy Chest: Clear to auscultation without wheezes rhonchi or crackles however when he moves from a chair for Radiology to the chair in the room he does have some wheezing with exertion Abdomen: Positive bowel sounds, soft, nontender Extremities no edema pulses intact Objective Labs 01/16/25 04:23 01/16/25 04:23 Labs: Laboratory Results - last 24 hr 01/16/25 04:23 WBC 12.4 H RBC 3.62 L Hgb 10.5 L Hct 31.8 L MCV 87.9 MCH 29.2 MCHC 33.2 RDW 15.0 H Plt Count 113 L Neut % (Auto) 75.0 Lymph % (Auto) 13.4 L [place] % (Auto) 9.7 Eos % (Auto) 1.3 L Baso % (Auto) 0.6 Neut # (Auto) 9300 H Lymph # (Auto) 1700 [place] # (Auto) 1200 H Eos # (Auto) 200 Baso # (Auto) 100 Sodium 141 Potassium 3.7 Chloride 111 H Carbon Dioxide 20 L BUN 48 H Creatinine 1.11 Estimated GFR > 60 BUN/Creatinine Ratio 43.2 H Glucose 134 H Calcium 7.9 L NT-Pro-B Natriuret Pep 6200 H PFSH Medical History Lumbosacral radiculopathy Spondylolisthesis of lumbar region Lumbar spondylosis Low back pain BPH w urinary obs/LUTS Spinal stenosis, 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 Bladder outlet obstruction Benign prostatic hyperplasia Dementia Afib Balanitis Memory changes Hearing impaired Osteoarthritis Skin cancer BCC (basal cell carcinoma) (2022) Sensitive skin 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) History of urinary retention Lumbar spinal stenosis DJD of right shoulder Lower urinary tract symptoms History of phimosis of penis Male circumcision Acute metabolic encephalopathy Sepsis History of tobacco use Gross hematuria History of urinary tract infection Abnormal prostate by palpation Acquired phimosis of penis Pancreatic cyst Anemia Hypothyroidism associated with surgical procedure Hypertension Central sleep apnea Excessive daytime sleepiness Obstructive sleep apnea of adult Primary insomnia Restless legs syndrome (RLS) Snoring PANCREATIC CYSTS Rectal bleeding Chemosis of left conjunctiva Corneal abrasion Surgical History History of lumbar surgery History of reverse total replacement of right shoulder joint (05/26/22) Hx of tonsillectomy Hx of bilateral cataract extraction Hx of thyroidectomy (~1989) History of urologic surgery (04/02/21) History of ankle surgery History of total left knee replacement H/O shoulder surgery Family History Father Parkinson disease Mother Parkinson disease Sister Blood disorder Social History marital status: details: shavonne Waite number of children: 1 household members: spouse lives independently: Yes caregiver/support person: No pets and animals: No occupational status: previously employed current occupational exposures/hazards: No 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 Sepsis syndrome with worsen mental status, initial elevated lactate and elevated procalcitonin though lactate decreased. Blood cultures pending. Patient acute on chronic kidney disease with a leukocytosis and afebrile. [place] that this is due to pneumonia possible concordant UTI Plan: Will continue with IV ceftriaxone and azithromycin to treat community-acquired pneumonia and possible UTI with possible Klebsiella. Will await blood cultures. Thus far cultures negative. Patient is continuing to improve with decreasing white blood cell. Urine culture not done due to not indicated. Reviewed blood culture done as outpatient urgent care clinic Will continue off IV fluids. Patient got a total of about 4 L he was having good urine output and I suspect he may be slightly fluid overloaded. Patient was given Lasix yesterday 20 mg and had okay diuresis. BNP is still elevated. We will give it another Lasix 20 mg now and also give potassium as potassium is low normal We will do PT OT and speech therapy. Will need repeat CT scan after patient resolves in 6-8 weeks ideally Assessment 2. History of congestive heart failure with last echo in July of 2023. Suspect possible fluid overload. Not significantly improve with Lasix yesterday Plan: Will treat with Lasix 20 mg IV now and will follow. Will reassess labs in the morning. We will give potassium as well due to low-normal potassium We will continue with outpatient medications of low-dose bisoprolol and spironolactone Reviewed echo which showed no significant change from July of 2023. Patient is still with ejection fraction 45-50% and no wall motion abnormality. Overall stable Assessment 3. Dementia with acute cognitive changes related to sepsis improved with IV hydration and IV antibiotics Plan: Will continue Aricept and Namenda as outpatient Will continue to treat underlying exacerbating etiologies Assessment 4. Hypoxemia suspect multifactorial including obstructive sleep apnea and fluid overload and pneumonia Plan: Will consult RT and give nebulizers as needed Will give Lasix 20 mg IV and reassess We will continue with supportive oxygen. will bring in mouth guard so that he can use this to sleep Assessment 5. P AFib/flutter currently in sinus rhythm Plan: Will continue with bisoprolol and spironolactone and Eliquis We will continue to monitor Assessment 6. Penile irritation with a history of balanitis but does not appear acutely to have but maybe it irritated simply from the catheter. Catheter was removed patient was able to urinate and having some incontinence. Bhakti consulted Urology who is available should we need assistance but it sounds like he was at a fairly unremarkable catheterization x2 in the ER last night. At this point I think the catheter was placed for mobility issues and cognition but I think it is very irritating so we will discontinue Doing well with catheter out. Assessment 7. Norovirus Plan: Will continue with supportive care Assessment 8. Ulcerative colitis without acute issues right now Plan: Continue outpatient balsalazide. Consider steroids if diarrhea persists or there is other changes Assessment 9. Peripheral neuropathy Plan: Continue outpatient duloxetine Assessment 10. Degenerative arthritis Plan: Tramadol as needed, PT OT consulted Assessment 11. Hypothyroidism Plan: Continue outpatient levothyroxine Assessment 12. Incidental finding of pancreatic cyst on CT. This is not changed significantly he was had multiple CTs has not had an MRI of his abdomen but patient does have pacemaker so we are unable to do the MRI but will consider following up CT as outpatient after discussion with family as this has been stable although radiology did recommend it should be monitored for 10 years after it was 1st seen. Assessment 13. Acute on chronic kidney disease with marked improvement even off IV fluids Plan: Will continue to monitor. Assessment 14. BPH with lower uterine tract symptoms Plan: Continue with outpatient tamsulosin Code status is full code at this time but did have discussion with family of the meaning of this and they will discuss and let me know if this changes 56 minutes was spent with the patient reviewing his clinic chart his hospital chart talking with physicians and nursing meeting with patient his and [id number] and examined the patient formulating a plan and documentation Time-Based Coding :: [TOTAL MINUTES] spent with patient and on the chart (including review of chart, obtaining history, exam, reviewing outside data, placing orders, documenting exam and treatment plan, and counseling patient) on [DATE]. Quality VTE Deep Vein Thrombosis/Pulmonary Embolism Present on Admission: No
--- NOTE | 2025-01-16 14:18 | PT.IIE ---
Current Diagnoses Sepsis, unspecified organism (01/14/25) Surgical History (Last Reviewed 01/15/25 @ 07:35 by Annetta Sanabria MD) H/O shoulder surgery History of ankle surgery History of lumbar surgery 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 History of urologic surgery (04/02/21) Hx of bilateral cataract extraction Hx of thyroidectomy (~1989) Hx of tonsillectomy Medical History (Last Reviewed 01/15/25 @ 07:35 by Annetta Sanabria MD) Abnormal prostate by palpation Acquired phimosis of penis Acute metabolic encephalopathy Afib Anemia Balanitis BCC (basal cell carcinoma) (2022) Benign prostatic hyperplasia Bladder outlet obstruction BPH w urinary obs/LUTS 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 Corneal abrasion Degenerative joint disease of knee Dementia DJD of right shoulder Excessive daytime sleepiness Gross hematuria Hearing impaired History of phimosis of penis History of tobacco use History of urinary retention History of urinary tract infection Hypertension Hypothyroidism associated with surgical procedure Low back pain Lower urinary tract symptoms Lumbar spinal stenosis Lumbar spondylosis Lumbosacral radiculopathy Male circumcision Memory changes Obstructive sleep apnea of adult Osteoarthritis 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) Pancreatic cyst PANCREATIC CYSTS Primary insomnia Rectal bleeding Restless legs syndrome (RLS) Sensitive skin Sepsis Skin cancer Snoring Spinal stenosis, lumbar region with neurogenic claudication Spondylolisthesis of lumbar region Physical Therapy Inpatient Evaluation/Re-Eval M1 PT IP Prior Functional Status Start: 01/16/25 14:18 Freq: NEEDED Status: Active Protocol: Document 01/16/25 13:53 [facility] (Rec: 01/16/25 14:32 [facility] [id number]) Medical Review Prior Functional Status Communication I Mobility and Gait Per pt's daughter in law, pt uses a 4ww. Activities of Daily Pt has assist with showers and later also for ADL needs Living and IADL's . Prior Functional Pt has caregivers to assist 4-5 hours 5x/week. Level (Other details ) Social History Household Members spouse Living Arrangements House Number of Floors ( Two Floors Floors) Number of Stairs To Pt has an elevator. Enter/Railing? Home Environment Standard Height Toilet,Walk in Shower,Elevator Home Equipment Four Wheel Walker,Straight Cane,Grab Bars Near Toilet M2 PT-IP Current Condition Start: 01/16/25 14:18 Freq: NEEDED Status: Active Protocol: Document 01/16/25 13:53 [facility] (Rec: 01/16/25 14:32 [facility] [id number]) Physical Therapy Current Condition Current Condition Evaluation Date 01/16/25 Treatment Diagnosis UTI, Fever, Sepsis Onset Date 01/14/25 M3 PT-IP Subjective Start: 01/16/25 14:18 Freq: NEEDED Status: Active Protocol: Document 01/16/25 13:53 [facility] (Rec: 01/16/25 14:32 [facility] [id number]) Subjective Physical Therapy Visit Type Type Initial Evaluation Visit Start Time 13:53 Visit Stop Time 14:18 Notes [facility] to [facility] entering. Pt admitted he was fatigued, but willing to work with PT. Reports he feels like he is about 75% of baseline. is in room, reports he is doing much better than yesterday. Number of CLERK MANAGER Visits 0 Physical Therapy Visit Comments Patient Comments Pt reports pain in his hips, low back, mid back, shoulders, and hands, however notes that this is normal for him. M4 PT-IP Mobility and Gait Start: 01/16/25 14:18 Freq: NEEDED Status: Active Protocol: Document 01/16/25 13:53 [facility] (Rec: 01/16/25 14:32 [facility] [id number]) PT-Bed Mobility Assessment Rolling Level of Assist Independent Supine to Sit Supine to Sit Independent Sit to Supine Sit to Supine Independent Scooting Scooting to Edge of Independent Bed Scooting Up and Down Standby Assistance in Bed PT-Transfer Assessment Sit to and From Stand Sit to and from Standby Assistance Stand Equipment Transfer Assistive None Device Orthotic/Prosthetic No Devices or Brace: Transfers Transfer Destination Bed,Bedside Commode Transfer Technique Stand Step Pivot Transfer Ability Level of Assist Standby Assistance Comments Mobility Comments Pt performs [id number] transfer from bed to BSC and back SBA M5 PT-IP Objective Assessments Start: 01/16/25 14:18 Freq: NEEDED Status: Active Protocol: Document 01/16/25 13:53 [facility] (Rec: 01/16/25 14:32 [facility] [id number]) Orientation Orientation/Cognition Level of Alertness Alert Orientation Name,Birthday,Month,Year,Place,Situation Language Function No Deficits Noted Ability Safety Awareness Understands Safety Issues Memory Description Short Term Impaired Comments Cognition appears to be baseline mild confusion Strength Lower Extremity Strength Assessment Within Functional Limits Comments Strength Comments Pt lifts LEs against gravity, able to perform sit<-> stands unassisted M7 PT-IP Assessment and Plan Start: 01/16/25 14:18 Freq: NEEDED Status: Active Protocol: Document 01/16/25 13:53 [facility] (Rec: 01/16/25 14:32 [facility] [id number]) PT Summary Assessment and Plan Potential Rehabilitation Good Potential Status of Condition Stable at Evaluation Summary Impairments Pain,Gait,Activity Tolerance Assessment Summary Pt appears to be approaching baseline at this time, although tired, willing to work a little with PT for an eval. Independent with bed mobility, able to transfer EOB to BSC without AD. Pt used BSC and performed pericare independently, and then able to transfer back and return to supine SBA. Pt demonstrated good safety awareness and functional mobility. Pt will likely do well with discharge home with assistance, which is his baseline. Pt would likely benefit from then return to outpatient PT for strengthening, conditioning, and balance Goals Gait Distance 200' /c FWW or SPC Other Goals Ascend/descend 3 steps SBA Days to Meet Goals 3 Frequency of Treatment Frequency Of Once a Day Treatment Treatment Plan Physical Therapy Gait Training,Therapeutic Exercise,Balance Retraining, Treatment Plan Neuromuscular Re-ed Recommendations To Nursing Amount of Assist Standby Assistance,1 Person Assist Needed Discharge Recommendations PT Discharge Home with Assistance Recommendations
[2025-01-16] MEDS: cefTRIAXone 2,000 MG in SODIUM CHLORIDE 0.9% 100 ML 200 MG IV (15:54)
--- NOTE | 2025-01-16 15:56 | CM.DPNOTE ---
DCP note MANDARIN TUTOR reviewed EMR per PT, rec home with assist. per ORTHOTIST/OT, rec HH. MANDARIN TUTOR spoke with spouse via phone. reviewed options for DCP. spouse/pt preference home with HH, no preference on agency. [facility] picked based on rotating vendor calendar. no further CM needs at this time. MANDARIN TUTOR emailed ref to Lucas at [facility]. completed f2f/HH order, behind FS. did not send yet. P: dc home when medically stable, timeline unclear. with spouse and PP CGs from home instead. [facility] to follow. will continue to follow closely for DCP Coordination LOY Werner
--- NOTE | 2025-01-16 16:08 | ST.IPDYTX ---
Visit Care Team Role Provider Type Annetta Sanabria MD Family Provider Physician Primary Care Provider Specialty: Family Practice Address: [address] [place] [address], [place], [address] Email: [email or web address] Amanda Mireles DO Emergency Provider Physician Referring Provider Specialty: Emergency Medicine Address: [address] [place] [address], [address] Email: [email or web address] Bebeto Brown MD Admit Provider Physician Attending Provider Specialty: [facility] Address: [address] [place] [address], [place], [address] Email: [email or web address] Dysphagia Treatment [facility] Dysphagia Treatment Start: 01/16/25 16:02 Freq: Status: Active Protocol: Document 01/16/25 16:02 MM (Rec: 01/16/25 16:07 MM Desktop) Dysphagia Treatment Session Time Visit Start Time 14:50 Visit Stop Time 15:00 Total Visit Minutes 10 Setting Assessment Location Acute Care Next Note Type Next Note Type Treatment Note Patient Information Subjective Reviewed results/recommendations from MBSS completed Observations this morning with RN, pt's family at bedside, and pt. Treatment Treatment Activities ST reviewed results of MBSS in detail with RN, pt's family at bedside, and pt incorporating use of visual support for explaining anatomy/physiology of swallow. ST also reviewed recommendations given results of MBSS including no straws, small sips, slow rate, upright positioning, and frequent rest breaks. ST recommended continuation of current diet (IDDSI 7/regular solids and IDDSI 0/thin liquids) with use of strategies. ST provided handout with MBSS completion date, diet recommendation, and strategies outlined for reference at this and next level of care. RN, pt's family, and pt verbalized understanding of results/recommendations. The IDDSI Framework Protocol: IDDSI.1 Recommendations Recommendations Continue Current Diet Liquids Order Thin (IDDSI 0) Diet Order Regular (IDDSI 7) Medication As Tolerated Recommendations Additional Dietary No Straws Needs Aspiration Precautions Recommended Upright at 90 Degrees,Frequent Rest Periods,Small Bites Precautions /Sips,Liquids from Cup Additional Slow Rate Precautions Treatment Plan Placement Home Recommendation after Discharge Appropriate for No Continued Therapy Therapy ST to sign off, please re-consult with any change in Recommendations status.
[2025-01-16] MEDS: ALBUTEROL 2.5 MG/3 ML NEB (ADULT) INH (16:49)
[2025-01-16] MEDS: TAMSULOSIN 0.4 MG CAPSULE PO (17:47)
[2025-01-16] MEDS: DONEPEZIL 5 MG TABLET 10 MG PO (17:47)
[2025-01-17] MEDS: LEVOTHYROXINE 75 MCG TABLET 150 MCG PO (06:11)
[2025-01-17 06:50] LABS: Add Manual Diff / Slide Review NO; Hematocrit 32.9 % (41-53); Hemoglobin 11.0 g/dL (13.5-17.5); Lymphocytes Absolute Auto 1300 /uL (1100-4500); Mean Corpuscular HGB Conc 33.4 % (30-36); Mean Corpuscular Hemoglobin 29.3 PG (26-34); Mean Corpuscular Volume 87.8 fL (80-100); Platelet Count 132 X10^3/uL (150-400)
[2025-01-17 07:00] VITALS: O2SAT 96
[2025-01-17 07:08] LABS: Alanine Aminotransferase 69 IU/L (<50); Albumin 3.2 g/dL (3.5-5.0); Albumin Globulin Ratio 1.3 (1.0-2.8); Alkaline Phosphatase 62 U/L (38-126); Blood Urea Nitrogen 41 mg/dL (9-20); Calcium 8.3 mg/dL (8.4-10.2); Carbon Dioxide 24 mmol/L (22-32); Chloride 109 mmol/L (98-107); Estimated Glomerular Filt Rate > 60 mL/min (>60); Globulin 2.5 g/dL (1.7-4.1); Glucose 130 mg/dL (70-99); HEMOLYSIS 20 (0-50); Potassium 4.2 mmol/L (3.4-5.1); Sodium 142 mmol/L (137-145); Total Protein 5.7 g/dL (6.3-8.2)
[2025-01-17 07:15] LABS: NT-proBNP (BNP-Adult 18+) 4740 pg/mL (<450)
[2025-01-17 09:02] VITALS: O2SAT 98
--- NOTE | 2025-01-17 09:35 | OT.IP.TRT ---
Current Diagnoses Sepsis, unspecified organism (01/14/25) Occupational Therapy Treatment Note M2 OT-IP Current Condition Start: 01/16/25 12:18 Freq: Status: Active Protocol: Document 01/16/25 12:19 [facility] (Rec: 01/16/25 12:33 [facility] Desktop) Occupational Therapy Current Condition Current Condition Evaluation Date 01/16/25 Treatment Diagnosis UTI, sepsis, PNA Diagnosis Onset Date 01/14/25 M3 OT- IP Subjective and Pain Start: 01/16/25 12:18 Freq: Status: Active Protocol: Document 01/17/25 09:37 [facility] (Rec: 01/17/25 09:45 [facility] Desktop) OT- Subjective Occupational Therapy Visit Type Type Treatment Note Visit Start Time 09:05 Visit Stop Time 09:35 Occupational Therapy Visit Comments Patient Comments Pt agreed to get up to brush his teeth. Patient/Caregiver TO go home. Goals OT Pain Assessment Pain When Pain Assessed At Rest Pain Present Pain Present Denied Pain M4 OT- IP ADL's Start: 01/16/25 12:18 Freq: Status: Active Protocol: Document 01/17/25 09:37 [facility] (Rec: 01/17/25 09:45 [facility] Desktop) OT ADL-Grooming General Evaluation Grooming Ability Standby Assistance Areas Needing Retrieving/Set-up of Grooming Items Assistance Comments OT Grooming Comments Able to stand at sink. OT ADL-Oral Care General Eval Oral Care Ability Independent Comments Oral Care Comments While standing at the sink. M5 OT- IP IADL's Start: 01/16/25 12:18 Freq: Status: Active Protocol: Document 01/16/25 12:19 [facility] (Rec: 01/16/25 12:33 [facility] Desktop) OT-Instrumental Activities of Daily Living Home Safety Awareness Home Safety Comments Pt has dementia per chart. Medication Management Medication Caregiver Administers Management Money Management Money Management Caregiver Provides Assistance Meal Preparation Meal Preparation Caregiver Provides Assist Hand Pattern Marker Hand Pattern Marker Caregiver Provides Assist M6 OT- IP Functional Cognition Start: 01/16/25 12:18 Freq: Status: Active Protocol: Document 01/17/25 09:37 [facility] (Rec: 01/17/25 09:45 [facility] Desktop) Cognitive Factors Limiting Selfcare Function Cognitive Ability Level of Alertness Alert Patient Orientation Name,Place Attention Span Capable of Focused Attention,Capable of Sustained Ability Attention Ability to Follow Able to Follow One Step Commands with Increased Time, Commands Able to Follow One Step Commands with Repetition Memory Description Short Term Impaired Safety Awareness Underestimates Need for Assistance Cognitive Comments Cognitive Assessment Pt able to follow commands for ADL and mobility needs. Comments Pt needing reminders to make sure to call for help prior to getting up. Bed alarm turned on . M7 OT- IP Mobility and Balance Start: 01/16/25 12:18 Freq: Status: Active Protocol: Document 01/17/25 09:37 [facility] (Rec: 01/17/25 09:45 [facility] Desktop) OT- Bed Mobility Assessment Supine to Sit Supine to Sit Assist Minimal Assistance OT-Transfer Assessment Sit to and From Stand Sit to and from Standby Assistance,Contact Guard Assistance Stand Transfers Transfer Ability Standby Assistance,Contact Guard Assistance Technique Transfer Destination Bed Transfer Technique Stand Step Pivot Devices Transfer Assistive Gait Belt Devices Comments Mobility Comments ELI to get his trunk upright. CGA to close SBA with gait belt and able to walk to and from the sink and needing assist with all cord management needs. Pt on 2. 5L O2 and at 99%, trail on RA and at 99% initially and down to 96% after 5 minutes, nursing states to keep an eye on it. OT- Balance Assessment Sitting Balance and Reactions Static Sitting Normal Balance Ability Dynamic Sitting Good Balance Ability Standing Balance and Reactions Static Standing Good Balance Ability Dynamic Standing Fair Balance Ability M8 OT- IP Objective Assessments Start: 01/16/25 12:18 Freq: Status: Active Protocol: Document 01/16/25 12:19 [facility] (Rec: 01/16/25 12:33 [facility] Desktop) OT Gross Range of Motion Upper Extremity Range of Motion ROM Impairments Not able to formally assess. OT Strength Upper Extremity Strength Assessment Within Functional Limits M9 OT- IP Assessment and Plan Start: 01/16/25 12:18 Freq: Status: Active Protocol: Document 01/17/25 09:37 [facility] (Rec: 01/17/25 09:45 [facility] Desktop) OT Summary Assessment and Plan Potential Rehabilitation Good Potential Analytic Complexity Moderate at Evaluation Summary OT Impairments Pain,Balance,Functional Cognition,Functional Mobility, Self-Feeding,Grooming,Dressing,Toileting,Toilet Transfers,Shower Transfers,Activity Tolerance Progress Towards Progressing Toward Goals,Slow Progress due to Medical Goals Issues Assessment Summary Pt able to get up with ELI for bed mobility and close SBA /CGA to walk in the room. Pt able to do his oral care and grooming needs at the sink. Pt on RA and form 99%-96%. Pt to go home when medically stable. Goals Self-Feeding Goal Independent Grooming Goal Independent Dressing Goal Standby Assistance Toileting Goal Standby Assistance Toilet Transfer Goal Independent Shower Transfer Goal Standby Assistance Days to Meet Goals 6 Frequency of Treatment Other frequency 5x/week Treatment Plan OT Treatment Plan ADL Training,Functional Mobility,Patient/Family Education,Discharge Planning Discharge Recommendations OT Discharge Home with 06/09 Assist Available,Home Health Recommendations Transportation Needs Private Vehicle at Discharge
[2025-01-17] MEDS: LOSARTAN 50 MG TABLET PO (10:46)
[2025-01-17] MEDS: CHOLECALCIFEROL (VITAMIN D3) 1,000 UNIT TABLET 1000 UNIT PO (10:46)
[2025-01-17] MEDS: APIXABAN 5 MG TABLET PO ×2 (10:47→21:03)
[2025-01-17] MEDS: SPIRONOLACTONE 25 MG TABLET PO (10:47)
[2025-01-17] MEDS: AZITHROMYCIN 250 MG TABLET PO (10:47)
[2025-01-17] MEDS: MULTIVITAMIN 1 TABLET 1 TAB PO (10:47)
[2025-01-17] MEDS: MEMANTINE HCL 5 MG TABLET 10 MG PO ×2 (10:50→21:04)
[2025-01-17] MEDS: SODIUM CHLORIDE 0.9% FLUSH 10 ML IV ×2 (10:51→21:04)
[2025-01-17] MEDS: BALSALAZIDE 750 MG 1500 EACH PO ×3 (10:51→21:04)
--- NOTE | 2025-01-17 13:17 | P.PN_ITS ---
Subjective Subjective Date Patient Seen: 01/17/25 Time Patient Seen: 13:17 Interval history: Patient had an unremarkable night. He is feeling much better and family feels he is progressing back to his baseline is more at his baseline. He is still having incontinence of stool with very loose stools but bowel movements are decreasing. Speech therapy has signed off and only precautions were no straws as well as some behavioral changes associated with while he is eating. Home health was recommended for OT and nursing. Patient's breathing continues to improve and he has just recently been weaned off oxygen. He has had a subjective significant output of urine. He is still having spasms of the left lower quadrant pain that lasts briefly and proceed a bowel movement There has been no blood or mucus in his bowel movements 12 point review of systems otherwise negative Exam Vital Signs (past 8 hours): - 01/17/25 07:00 01/17/25 09:02 Pulse Oximetry 96 98 Oxygen Delivery Method Nasal Cannula Nasal Cannula Oxygen Flow Rate 2 2 Fraction of Inspired Oxygen 28 Fraction of Inspired Oxygen 28 SaO2/FiO2 Ratio 350 Oxygen Delivery Method Nasal Cannula Oxygen Flow Rate 2 Narrative Exam Narrative: Patient is alert and oriented no apparent distress. O2 sats stable on room air HEENT: Unchanged mucous membranes moist and pink Neck: Supple without adenopathy Chest: Clear to auscultation without wheezes, rhonchi or crackles bibasilar diminished breath sounds are improved Cor: Regular rate and rhythm Abdomen: Positive bowel sounds, soft, nontender, nondistended except mild left lower quadrant tenderness Extremities no edema pulses intact Objective Labs 01/17/25 06:35 01/17/25 06:35 Labs: Laboratory Results - last 24 hr 01/17/25 06:35 WBC 8.0 RBC 3.75 L Hgb 11.0 L Hct 32.9 L MCV 87.8 MCH 29.3 MCHC 33.4 RDW 14.9 H Plt Count 132 L Neut % (Auto) 68.8 Lymph % (Auto) 16.6 L Faulkner % (Auto) 11.1 Eos % (Auto) 3.0 Baso % (Auto) 0.5 Neut # (Auto) 5500 Lymph # (Auto) 1300 Faulkner # (Auto) 900 Eos # (Auto) 200 Baso # (Auto) 0 Sodium 142 Potassium 4.2 Chloride 109 H Carbon Dioxide 24 BUN 41 H Creatinine 0.92 Estimated GFR > 60 BUN/Creatinine Ratio 44.6 H Glucose 130 H Calcium 8.3 L Total Bilirubin 0.6 AST 85 H ALT 69 H Alkaline Phosphatase 62 NT-Pro-B Natriuret Pep 4740 H Total Protein 5.7 L Albumin 3.2 L Globulin 2.5 Albumin/Globulin Ratio 1.3 PFSH Medical History Lumbosacral radiculopathy Spondylolisthesis of lumbar region Lumbar spondylosis Low back pain BPH w urinary obs/LUTS Spinal stenosis, 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 Bladder outlet obstruction Benign prostatic hyperplasia Dementia Afib Balanitis Memory changes Hearing impaired Osteoarthritis Skin cancer BCC (basal cell carcinoma) (2022) Sensitive skin 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) History of urinary retention Lumbar spinal stenosis DJD of right shoulder Lower urinary tract symptoms History of phimosis of penis Male circumcision Acute metabolic encephalopathy Sepsis History of tobacco use Gross hematuria History of urinary tract infection Abnormal prostate by palpation Acquired phimosis of penis Pancreatic cyst Anemia Hypothyroidism associated with surgical procedure Hypertension Central sleep apnea Excessive daytime sleepiness Obstructive sleep apnea of adult Primary insomnia Restless legs syndrome (RLS) Snoring PANCREATIC CYSTS Rectal bleeding Chemosis of left conjunctiva Corneal abrasion Surgical History History of lumbar surgery History of reverse total replacement of right shoulder joint (05/26/22) Hx of tonsillectomy Hx of bilateral cataract extraction Hx of thyroidectomy (~1989) History of urologic surgery (04/02/21) History of ankle surgery History of total left knee replacement H/O shoulder surgery Family History Father Parkinson disease Mother Parkinson disease Sister Blood disorder Social History marital status: details: to Mariann number of children: 1 household members: spouse lives independently: Yes caregiver/support person: No pets and animals: No occupational status: previously employed current occupational exposures/hazards: No 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 Sepsis syndrome with worsen mental status, initial elevated lactate and elevated procalcitonin though lactate decreased. Blood cultures pending. Patient acute on chronic kidney disease with a leukocytosis and afebrile. [place] that this is due to pneumonia possible concordant UTI Plan: Will continue with IV ceftriaxone and azithromycin to treat community- acquired pneumonia and possible UTI with possible Klebsiella. Will await blood cultures. Thus far cultures negative. Patient is continuing to improve. White blood cell count is now normal Urine culture not done due to not indicated. Reviewed blood culture done as outpatient urgent care clinic Will continue off IV fluids. Patient got a total of about 4 L he was having good urine output and I suspect he may be slightly fluid overloaded. Patient was given Lasix yesterday 20 mg on Tuesday and Tuesday for suspected fluid overload and BNP is improved and clinically patient is improved and currently is off oxygen Speech therapy signed off. OT and PT following Will need repeat chest CT scan after patient resolves in 6-8 weeks ideally Assessment 2. History of congestive heart failure with last echo in July of 2023. Suspect possible fluid overload resolved with 2 consecutive days of 20 mg of IV Lasix We will continue with outpatient medications of low-dose bisoprolol and spironolactone Reviewed echo which showed no significant change from July of 2023. Patient is still with ejection fraction 45-50% and no wall motion abnormality. Overall stable Assessment 3. Dementia with acute cognitive changes related to sepsis improved with IV hydration and IV antibiotics Plan: Will continue Aricept and Namenda as outpatient Will continue to treat underlying exacerbating etiologies Assessment 4. Hypoxemia suspect multifactorial including obstructive sleep apnea and fluid overload and pneumonia. Resolved. Will continue to monitor Plan: Continue current treatment including mouth guard at night. Assessment 5. P AFib/flutter currently in sinus rhythm Plan: Will continue with bisoprolol and spironolactone and Eliquis We will continue to monitor Assessment 6. Penile irritation with a history of balanitis but does not appear acutely to have but maybe it irritated simply from the catheter. Catheter was removed patient was able to urinate and having some incontinence. Bhakti consulted Urology who is available should we need assistance but it sounds like he was at a fairly unremarkable catheterization x2 in the ER last night. At this point I think the catheter was placed for mobility issues and cognition but I think it is very irritating so we will discontinue Doing well with catheter out. No concerns at this time Assessment 7. Norovirus Plan: Will continue with supportive care Assessment 8. Ulcerative colitis without acute issues right now Plan: Continue outpatient balsalazide. Consider steroids if diarrhea persists or there is other changes. Still no signs at this time Assessment 9. Peripheral neuropathy Plan: Continue outpatient duloxetine Assessment 10. Degenerative arthritis Plan: Tramadol as needed, PT OT consulted Assessment 11. Hypothyroidism Plan: Continue outpatient levothyroxine Assessment 12. Incidental finding of pancreatic cyst on CT. This is not changed significantly he was had multiple CTs has not had an MRI of his abdomen but patient does have pacemaker so we are unable to do the MRI but will consider following up CT as outpatient after discussion with family as this has been stable although radiology did recommend it should be monitored for 10 years after it was 1st seen. Assessment 13. Acute on chronic kidney disease with marked improvement even off IV fluids Plan: Will continue to monitor. Assessment 14. BPH with lower uterine tract symptoms Plan: Continue with outpatient tamsulosin Code status is DNR. Reviewed POLST form 53 minutes was spent with the patient reviewing his clinic chart his hospital chart talking with physicians and nursing meeting with patient his and [id number] and examined the patient formulating a plan and documentation Time-Based Coding :: [TOTAL MINUTES] spent with patient and on the chart (including review of chart, obtaining history, exam, reviewing outside data, placing orders, documenting exam and treatment plan, and counseling patient) on [DATE]. Quality VTE Deep Vein Thrombosis/Pulmonary Embolism Present on Admission: No
--- NOTE | 2025-01-17 15:25 | CM.DPNOTE ---
DCP note Per chart review, decreasing in frequency and volume of BMs. potential dc tomorrow. on room air. FIXTURE RELAMPER received call from [facility] instead. not on disclosed list of contacts. did not disclose information. FIXTURE RELAMPER spoke with spouse over the phone. spouse reports okay with [facility] (ADD BATH AIDE TO ORDER). Has CGs 5 days a week (M-W in afternoon with individual not in agency, Thur/Fri with Home instead). none on the weekends. confirm son Estevan can help over the weekend. may get a BSC for pt. FIXTURE RELAMPER answered questions to best of ability. Spouse reports she will call Home instead back to discuss plan. P: potential dc tomorrow with PP CGs, son, spouse, and [facility] support. Will continue to follow closely for DCP coordination LOY Werner
[2025-01-17] MEDS: TAMSULOSIN 0.4 MG CAPSULE PO (16:29)
[2025-01-17] MEDS: cefTRIAXone 2,000 MG in SODIUM CHLORIDE 0.9% 100 ML 200 MG IV (16:30)
[2025-01-17] MEDS: DONEPEZIL 5 MG TABLET PO (16:31)
[2025-01-17] MEDS: LACTOBACILLUS ACIDOPHILUS TABLET 1 EACH PO (16:32)
--- NOTE | 2025-01-17 16:59 | PT.IPTN ---
Current Diagnoses Sepsis, unspecified organism (01/14/25) Physical Therapy Treatment Note M2 PT-IP Current Condition Start: 01/16/25 14:18 Freq: NEEDED Status: Active Protocol: Document 01/16/25 13:53 [facility] (Rec: 01/16/25 14:32 [facility] [id number]) Physical Therapy Current Condition Current Condition Evaluation Date 01/16/25 Treatment Diagnosis UTI, Fever, Sepsis Onset Date 01/14/25 M3 PT-IP Subjective Start: 01/16/25 14:18 Freq: NEEDED Status: Active Protocol: Document 01/17/25 16:59 [facility] (Rec: 01/17/25 17:11 [facility] Desktop) Subjective Physical Therapy Visit Type Type Treatment Note Visit Start Time 16:25 Visit Stop Time 16:59 Notes 34 min Number of CERTIFIED ORTHOTIC FITTER Visits 0 Physical Therapy Visit Comments Patient Comments He hopes to go home tomorrow. He continues to get cramps regularly with some diarrhea. Patient Goals Get better and go home M4 PT-IP Mobility and Gait Start: 01/16/25 14:18 Freq: NEEDED Status: Active Protocol: Document 01/17/25 16:59 [facility] (Rec: 01/17/25 17:11 [facility] Desktop) PT-Transfer Assessment Sit to and From Stand Sit to and from Standby Assistance Stand Equipment Transfer Assistive Gait Belt,Front Wheeled Walker Device Transfers Transfer Destination Chair Transfer Technique Stand Step Pivot Transfer Ability Level of Assist Standby Assistance Comments Mobility Comments Pt up to recliner and wants to stay up for Dinner. His is present for therapy today. Gait Assessment Gait Gait Assistance Standby Assistance Required: Distance (Feet) 300 Assistive Devices Assistive Device Gait Belt,Front Wheeled Walker Factors Limiting Gait Function Factors Limiting Decreased Activity Tolerance Gait Function Comments Gait Comments mild increased respiratory rate but no complaints of shortness of breath Pt eager to ambulate in [place] this visit Intermittently he does not keep feet inside the FWW when turning, he reports it is harder to use the FWW than his 4WW Pt on room air with O2 sats greater than 90% throughout this visit. PT-Balance Assessment Sitting Balance and Reactions Static Sitting Normal Balance Ability Dynamic Sitting Normal Balance Ability Standing Balance and Reactions Static Standing Good Balance Ability Dynamic Standing Good Balance Ability Device Used FWW M5 PT-IP Objective Assessments Start: 01/16/25 14:18 Freq: NEEDED Status: Active Protocol: Document 01/16/25 13:53 [facility] (Rec: 01/16/25 14:32 [facility] [id number]) Orientation Orientation/Cognition Level of Alertness Alert Orientation Name,Birthday,Month,Year,Place,Situation Language Function No Deficits Noted Ability Safety Awareness Understands Safety Issues Memory Description Short Term Impaired Comments Cognition appears to be baseline mild confusion Strength Lower Extremity Strength Assessment Within Functional Limits Comments Strength Comments Pt lifts LEs against gravity, able to perform sit<-> stands unassisted M6 PT-IP Treatment Start: 01/16/25 14:18 Freq: NEEDED Status: Active Protocol: Document 01/17/25 16:59 [facility] (Rec: 01/17/25 17:11 [facility] Desktop) Physical Therapy Treatment Education Education Provided Safety Other Treatments Other Treatment education for monitoring Oxygen needs and use of his Performed pulse ox at home as needed education for gradual increase of his activity at home after discharge M7 PT-IP Assessment and Plan Start: 01/16/25 14:18 Freq: NEEDED Status: Active Protocol: Document 01/17/25 16:59 [facility] (Rec: 01/17/25 17:11 [facility] Desktop) PT Summary Assessment and Plan Summary Impairments Pain,Balance,Gait,Activity Tolerance Progress Towards Progressing Toward Goals Goals Assessment Summary Alpesh is alert and up in the recliner today. Nursing reports he has been mobilizing for frequent bathroom trips today. He is on room air with O2 sats in the 90's . Pt reports no shortness of breath. He his eager to increase his activity today and requested ambulating in the [place]. He was able to increase his distance of gait today with good tolerance. Continue to recommend home with assistance from his and caregiver at discharge. Goals Gait Goal Independent,Cane,Front Wheel Walker Gait Distance 200 feet Other Goals Ascend/descend 3 steps SBA Days to Meet Goals 3 Frequency of Treatment Frequency Of Once a Day Treatment Treatment Plan Physical Therapy Gait Training,Therapeutic Exercise,Balance Retraining, Treatment Plan Neuromuscular Re-ed Precautions Other Precautions monitor oxygen needs Recommendations To Nursing Amount of Assist Standby Assistance,1 Person Assist Needed Discharge Recommendations PT Discharge Home with Assistance Recommendations Other Discharge has a supportive to help as well as caregiver Recommendations Transportation Needs Private Vehicle at Discharge - PT assist 1
[2025-01-17 19:00] VITALS: O2SAT 91
[2025-01-17 20:00] VITALS: BP 147/99; PULSE 56; RESP 18; TEMP 36.8; O2SAT 93
[2025-01-18] VITALS (7 sets, daily range): BP systolic 132–168; BP diastolic 67–81; PULSE 61–64; RESP 18–20; TEMP 36.3–37.2; O2SAT 92–96
[2025-01-18] MEDS: LEVOTHYROXINE 75 MCG TABLET 150 MCG PO (06:23)
[2025-01-18] MEDS: LACTOBACILLUS ACIDOPHILUS TABLET 1 EACH PO ×2 (10:03→16:16)
[2025-01-18] MEDS: DIPHENOXYLATE/ATROP 2.5/0.025 TABLET 1 EACH PO ×3 (10:03→20:33)
[2025-01-18] MEDS: CHOLECALCIFEROL (VITAMIN D3) 1,000 UNIT TABLET 1000 UNIT PO (10:03)
[2025-01-18] MEDS: APIXABAN 5 MG TABLET PO ×2 (10:04→20:33)
[2025-01-18] MEDS: MEMANTINE HCL 5 MG TABLET 10 MG PO ×2 (10:06→20:33)
[2025-01-18] MEDS: SPIRONOLACTONE 25 MG TABLET PO (10:07)
[2025-01-18] MEDS: AZITHROMYCIN 250 MG TABLET PO (10:07)
[2025-01-18] MEDS: MULTIVITAMIN 1 TABLET 1 TAB PO (10:07)
[2025-01-18] MEDS: BALSALAZIDE 750 MG 1500 EACH PO ×2 (10:08→16:15)
[2025-01-18] MEDS: SODIUM CHLORIDE 0.9% FLUSH 10 ML IV ×2 (10:09→20:33)
[2025-01-18] MEDS: LOSARTAN 50 MG TABLET PO (10:11)
[2025-01-18 10:40] LABS: E coli Shiga Toxin EIA Negative (Negative); Salmonella/Shigella Screen Final report (.)
--- NOTE | 2025-01-18 11:41 | OT.IPNOTE ---
Pt in bed and not wanting to get up at this time as too tired.
--- NOTE | 2025-01-18 13:30 | PM.PN.1 ---
Subjective Subjective Date Patient Seen: 01/18/25 Time Patient Seen: 13:30 Interval history: Patient seen with son and . Overall feeling pretty well today. Had multiple episodes of diarrhea last night. No blood. No other changes. Patient has had a history of diarrhea. With colitis. There has been no blood. Has been taking his usual medication. Otherwise having no chest pain or other change. Not having any penile pain. No other changes. Exam Vital Signs (past 8 hours): - 01/18/25 07:00 01/18/25 08:00 01/18/25 10:11 Temperature 98.0 F Pulse Rate 64 Blood Pressure 168/81 H Pulse Oximetry 96 Oxygen Delivery Method Room Air Fraction of Inspired Oxygen 28 SaO2/FiO2 Ratio 350 Oxygen Delivery Method Room Air Oxygen Flow Rate 0 Narrative Exam Narrative: Alert elderly male in no acute distress HEENT exam mucous membranes moist neck supple without adenopathy lungs are clear heart is regular rate and rhythm without murmurs clicks rubs or gallops abdomen is soft positive bowel sounds nontender he is alert oriented Objective Labs 01/17/25 06:35 01/17/25 06:35 Labs: Laboratory Results - last 24 hr 01/14/25 21:25 Stool Culture Comment E.coli Shiga Toxins Negative Salmonella/Shigella Final report [facility] Medical History Lumbosacral radiculopathy Spondylolisthesis of lumbar region Lumbar spondylosis Low back pain BPH w urinary obs/LUTS Spinal stenosis, 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 Bladder outlet obstruction Benign prostatic hyperplasia Dementia Afib Balanitis Memory changes Hearing impaired Osteoarthritis Skin cancer BCC (basal cell carcinoma) (2022) Sensitive skin 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) History of urinary retention Lumbar spinal stenosis DJD of right shoulder Lower urinary tract symptoms History of phimosis of penis Male circumcision Acute metabolic encephalopathy Sepsis History of tobacco use Gross hematuria History of urinary tract infection Abnormal prostate by palpation Acquired phimosis of penis Pancreatic cyst Anemia Hypothyroidism associated with surgical procedure Hypertension Central sleep apnea Excessive daytime sleepiness Obstructive sleep apnea of adult Primary insomnia Restless legs syndrome (RLS) Snoring PANCREATIC CYSTS Rectal bleeding Chemosis of left conjunctiva Corneal abrasion Surgical History History of lumbar surgery History of reverse total replacement of right shoulder joint (05/26/22) Hx of tonsillectomy Hx of bilateral cataract extraction Hx of thyroidectomy (~1989) History of urologic surgery (04/02/21) History of ankle surgery History of total left knee replacement H/O shoulder surgery Family History Father Parkinson disease Mother Parkinson disease Sister Blood disorder Social History marital status: details: shavonne Waite number of children: 1 household members: spouse lives independently: Yes caregiver/support person: No pets and animals: No occupational status: previously employed current occupational exposures/hazards: No 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 Patient with multiple episodes of diarrhea last night. Maybe related to antibiotics. Will check C diff. Pending at this time. We will start acidophilus. Could this be related to his colitis I guess it is possible. Dr. Sanabria he is notes indicate that prednisone might be started if he has consistent problems. May need to start that depending on how he does with Lomotil and if things settle down. If they do will go from there. Otherwise if positive will C diff will treat. Family understands questions answered will watch to the night. Can not send home on 12 episodes of diarrhea a day. Sepsis syndrome. Seems to be improving. Blood cultures are negative. Appears to be combination of UTI and pneumonia. UTI with Klebsiella sensitive to cephalosporins. This point will discontinue IV ceftriaxone and start Ceftin. Will see how things go for there. Otherwise appears stable. Fluid status appears euvolemic and will follow. History of congestive heart failure. Echo with no significant change. Has gotten Lasix 2 days in a row. Appears to be better. At this point we will continue outpatient medicines and follow from there. Dementia. Acute cognitive change which appears to have resolved. Will continue his usual Aricept and Namenda. Probably secondary to infection Acute respiratory failure with hypoxia. Suspect combination of sleep apnea and pneumonia. After fluid hydration may have been fluid overloaded at this point he appears to be resolved. Off O2 and doing well. Will continue with outpatient diuretic support and follow. History of atrial fibrillation flutter stable at this time no evidence of recurrence. Will continue his beta-yeni spironolactone Eliquis Penile irritation. History of balanitis. At this point seems to be doing well. Catheter was removed. Will follow. Norovirus. Supportive care may have been part of his hypoxia but will have to see how things go. No issues at that time. Hypothyroidism stable. Continue levothyroxine. Incidental finding of pancreatic cyst. Has not change. Will follow. Outpatient with Dr. Sanabria. Acute on chronic kidney failure. Back to baseline. Will follow. Unable to get labs today not going to put him through multiple blood draws. Will follow up as an outpatient BPH with lower urinary tract symptoms will continue tamsulosin. Code status DNR. 60 minute spent with the patient family chart reviewed dictation orders Time-Based Coding :: [TOTAL MINUTES] spent with patient and on the chart (including review of chart, obtaining history, exam, reviewing outside data, placing orders, documenting exam and treatment plan, and counseling patient) on [DATE]. Quality VTE Deep Vein Thrombosis/Pulmonary Embolism Present on Admission: No
[2025-01-18 14:41] LABS: Clostridium Difficile Tox PCR Negative for C. diff (Negative)
[2025-01-18] MEDS: TAMSULOSIN 0.4 MG CAPSULE PO (16:16)
[2025-01-18] MEDS: cefTRIAXone 2,000 MG in SODIUM CHLORIDE 0.9% 100 ML 200 MG IV (16:16)
[2025-01-18] MEDS: DONEPEZIL 5 MG TABLET PO (16:16)
[2025-01-19] MEDS: LEVOTHYROXINE 75 MCG TABLET 150 MCG PO (06:40)
--- NOTE | 2025-01-19 07:57 | P.DS_ITS ---
History of Present Illness History of Present Illness Date Patient Seen: 01/19/25 Time Patient Seen: 07:57 Date of Onset of Symptoms: 02/12/25 Chief complaint: UTI fever Narrative: This is a very pleasant 84-year-old male who resides at home with his here in and [facility]. Patient has multiple medical problems and history started several days ago when he developed dysuria and increasing urinary frequency with underlying chronic incontinence of urine and enlarged prostate. He went to the walk-in clinic he had a urine culture done on January 13 which showed [id number] Klebsiella. He was started on Keflex and had phoned the office yesterday stating that he was lethargic and she was having trouble getting him back in bed. She was directed to take him to the emergency room which she did several hours later because he was not improving. Patient was found to have possible pneumonia with possible UTI with sepsis based on leukocytosis and acute on chronic kidney failure as well as worsened mental status changes. Patient was started on ceftriaxone and azithromycin for suspected community-acquired pneumonia which would also treat UTI. Patient is cognitively improved today at the time my visit. His and [id number] are at bedside. History is a bit difficult patient has chronic pulmonary problems and seems that he has had a cough productive of phlegm that has been increased and progressively increasing over the last 2 weeks. He has also had progressive weakness. He has not had any rash or nausea or abdominal pain but yesterday in the ER he started having multiple stools and was found to have norovirus as well. Underlying he does have ulcerative colitis that has been fairly well controlled by the balsalazide. He was followed by [facility]. Discharge Providers Provider Date of admission: 01/14/25 19:10 Discharge Date: 01/19/25 Primary care physician: Annetta Sanabria MD Consults: 01/14/25 21:54 Consult to Pharmacy Routine Comment: high fall risk and confusion 01/14/25 23:23 Consult to Speech Therapy Evaluate & Treat Comment: freq burping & sneezing/coughing w/ food per Physician Instructions: Evaluate and treat 01/16/25 09:25 Consult to Occupational Therapy Evaluate & Treat Comment: Physician Instructions: Evaluate and treat Consult to Physical Therapy Evaluate & Treat Comment: Physician Instructions: Evaluate and Treat 01/16/25 16:01 Consult to Home Health Routine Comment: Reason For Exam: RN/PT/OT/speech Discharge provider: Bebeto Brown MD Summary Hospital Course Discharge Diagnosis: Sepsis syndrome Pneumonia UTI Diarrhea History of congestive heart failure left heart Acute on chronic kidney failure BPH History of atrial fibrillation Hospital Course: Sepsis syndrome. Patient was admitted with hypotension, dehydration, acute respiratory failure. Chest x-ray showed pneumonia and urine was positive for probable infection. Patient was started on Zithromax and Rocephin. Urinary culture grew Klebsiella sensitive to ceftriaxone. No other change. Patient improved significantly after hydration over the 1st 24 hours. Had no other significant changes. Slowly improved acute respiratory failure resolved he was off oxygen after 48 hours. With no other change. Blood cultures were negative. Patient was switch to oral antibiotics and discharged home on day 5 will be followed as an outpatient. Ten days of Ceftin. Pneumonia. Patient had acute respiratory failure and abnormalities on his chest x-ray. He resolved that over the 1st 48 hours. Was off oxygen. Slowly improved with pulmonary symptoms and was doing well on discharge. With no other changes. Will switch from Rocephin to Ceftin as outpatient. Full course of Zithromax was given. Patient will be followed as an outpatient. UTI. Patient was felt to be secondary much of his symptoms secondary to his Klebsiella urinary tract infection. Cultures showed was sensitive to cephalosporins including Rocephin and Ceftin. He will be sent home on Ceftin and followed with repeat urine at outpatient. Diarrhea. Patient with history of colitis. He had a negative C diff on his presentation. He would done well until day before discharge that night he had had 12 episodes of diarrhea repeat C diff was negative. It was felt to be a combination of antibiotics in his colitis. We would discussed prednisone but he seemed to be improving over the course of the 24 hours prior to discharge and had more formed stools. Can use his usual antidiarrheal at home and will be followed as outpatient if worsening would consider prednisone as outpatient but will see how things go. Do not believe he needs treatment at this time. History of congestive heart failure left side. Patient was aggressively hydrated over the 1st 24 hours. He was noted to have no urine output for at least 12 hours and then things seemed to improve. There was no other significant change. After 48 hours it began to be obvious said he was becoming fluid overloaded and he was given IV Lasix for 2 days and markedly improved. He was doing well. Lung exam was normal. And he will be sent home as usual spironolactone be followed as an outpatient. Acute on chronic kidney failure. Patient had mild renal failure on admission with creatinine 1.25 and a GFR of 56 felt to be secondary to his do hydration and infection. He was hydrated and did well. With no other changes. Returned to normal. Will be followed as an outpatient expect no further issues. BPH patient had initial issues with urination but after evaluation with CT scan and attempted catheterization over the 1st 24 hours it was felt to be secondary to dehydration his urine seemed to improved Rolon was discontinued needed well be followed as an outpatient History of atrial fibrillation. Not an issue at this time Exam Vital Signs (past 8 hours): Fraction of Inspired Oxygen 28 SaO2/FiO2 Ratio 350 Oxygen Delivery Method Room Air Oxygen Flow Rate 0 Narrative Exam Narrative: Alert smiling male in no acute distress HEENT exam is unremarkable neck supple without adenopathy lungs are clear heart is regular rate and rhythm without murmurs clicks rubs or gallops Objective Labs 01/17/25 06:35 01/17/25 06:35 Labs: Laboratory Results - last 24 hr 01/14/25 01/18/25 21:25 09:26 Stool Culture Comment C. difficile Tox (PCR) Negative for c. 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) History of urinary retention Lumbar spinal stenosis DJD of right shoulder Lower urinary tract symptoms History of phimosis of penis Male circumcision Acute metabolic encephalopathy Sepsis History of tobacco use Gross hematuria History of urinary tract infection Abnormal prostate by palpation Acquired phimosis of penis Pancreatic cyst Anemia Hypothyroidism associated with surgical procedure Hypertension Central sleep apnea Excessive daytime sleepiness Obstructive sleep apnea of adult Primary insomnia Restless legs syndrome (RLS) Snoring PANCREATIC CYSTS Rectal bleeding Chemosis of left conjunctiva Corneal abrasion Surgical History History of lumbar surgery History of reverse total replacement of right shoulder joint (05/26/22) Hx of tonsillectomy Hx of bilateral cataract extraction Hx of thyroidectomy (~1989) History of urologic surgery (04/02/21) History of ankle surgery History of total left knee replacement H/O shoulder surgery Family History Father Parkinson disease Mother Parkinson disease Sister Blood disorder Social History marital status: details: shavonne Waite number of children: 1 household members: spouse lives independently: Yes caregiver/support person: No pets and animals: No occupational status: previously employed current occupational exposures/hazards: No 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, 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 Smoking Status: Former smoker alcohol intake: current substance use type: does not use caffeine: Yes Discharge Assessment & Plan Assessment and Plan Assessment: Improved Plan of Treatment: Discharge home with close follow-up Discharge Plan Discharge Plan Patient Disposition: Home Discharge orders & Medications Prescriptions: New Lactobacillus acidophilus 25 million cell Capsule 25,000,000 cell PO TIDWM Qty: 60 0RF cefuroxime axetil 500 mg tablet 500 mg PO BID 10 Days Qty: 20 0RF Continued cephalexin 500 mg capsule 500 mg PO BID 7 Days Qty: 14 0RF Centrum Silver Ultra Men's 300-600-300 mcg Tablet 1 tab PO DAILY donepezil 10 mg Tablet 5 mg PO QPM Eliquis 5 mg Tablet 5 mg PO BID acetaminophen 325 mg tablet 650 mg PO Q6H PRN (Reason: Pain) spironolactone 25 mg tablet 25 mg PO DAILY losartan 50 mg tablet 50 mg PO DAILY bisoprolol fumarate 5 mg tablet 2.5 mg PO DAILY tramadol 25 mg tablet 25 mg PO Q6H PRN (Reason: pain) memantine 10 mg tablet 10 mg PO BID balsalazide 750 mg capsule 1,500 mg PO TID Patient Comments: Pt will bring from home levothyroxine 150 mcg tablet 150 mcg PO DAILY cholecalciferol (vitamin D3) 25 mcg (1,000 unit) capsule 25 mcg PO DAILY tamsulosin 0.4 mg capsule 0.4 mg PO ONCE PM Qty: 90 3RF duloxetine 30 mg PO BID Follow up/Referrals: Annetta Sanabria MD [Primary Care Provider, [facility]] - 3-5 Days Referral Note: Call Tuesday for appointment next week Discharge Health Status Multidrug resistant organism: No MDRO Diet/Activity/Treatments Diet: Diet as Tolerated Activity: As tolerated Skin/Wound/Dressing Care Report to your healthcare provider any signs of infection, such as:: chills, fever and night sweats Visit Report/Discharge Packet Stand Alone Forms: Patient Portal/API, Stroke Signs & Symptoms Discharge Data Primary Care Provider: Annetta Sanabria Quality VTE Deep Vein Thrombosis/Pulmonary Embolism Present on Admission: No
--- NOTE | 2025-01-19 08:47 | CM.DPNOTE ---
DCP note RECREATIONAL AIDE reviewed EMR per Stephanie, cleared to dc home with family and HH today. RECREATIONAL AIDE sent previously completed HH order and f2f and new dc summary to [facility] (previously confirmed acceptance). No further CM needs at this time. P: home today with spouse, PP CGs, and [facility] to follow. will continue to follow in case any additional DCP needs should arise LOY Werner
[2025-01-19 10:00] VITALS: O2SAT 93
[2025-01-19] MEDS: SPIRONOLACTONE 25 MG TABLET PO (10:00)
[2025-01-19] MEDS: APIXABAN 5 MG TABLET PO (10:00)
[2025-01-19] MEDS: SODIUM CHLORIDE 0.9% FLUSH 10 ML IV (10:00)
[2025-01-19] MEDS: LACTOBACILLUS ACIDOPHILUS TABLET 1 EACH PO (10:00)
[2025-01-19] MEDS: LOSARTAN 50 MG TABLET PO (10:00)
[2025-01-19] MEDS: MULTIVITAMIN 1 TABLET 1 TAB PO (10:00)
[2025-01-19] MEDS: CHOLECALCIFEROL (VITAMIN D3) 1,000 UNIT TABLET 1000 UNIT PO (10:00)
[2025-01-19] MEDS: MEMANTINE HCL 5 MG TABLET 10 MG PO (10:05)
== END 2025-01-19 12:20 | disposition home health service (06) | DRG 871 ==
LOC: ED 15:35 → AC 19:11 → ICU 20:54
PROVIDERS: Admitting Provider Family Medicine; Emergency Provider Emergency Medicine; Family Provider Family Medicine; PCP Family Medicine; Referring Provider Emergency Medicine; Visit Provider Family Medicine
DX: A41.9 Sepsis, unspecified organism (principal); J18.9 Pneumonia, unspecified organism; J96.01 Acute respiratory failure with hypoxia; N39.0 Urinary tract infection, site not specified; N17.9 Acute kidney failure, unspecified; K86.2 Cyst of pancreas; K51.90 Ulcerative colitis, unspecified, without complications; I13.0 Hypertensive heart and chronic kidney disease with heart failure and stage 1 through stage 4 chronic kidney disease, or unspecified chronic kidney disease; B96.1 Klebsiella pneumoniae [K. pneumoniae] as the cause of diseases classified elsewhere; N18.9 Chronic kidney disease, unspecified; R65.20 Severe sepsis without septic shock; F03.90 Unspecified dementia, unspecified severity, without behavioral disturbance, psychotic disturbance, mood disturbance, and anxiety; N48.89 Other specified disorders of penis; G62.9 Polyneuropathy, unspecified; M19.90 Unspecified osteoarthritis, unspecified site; E03.9 Hypothyroidism, unspecified; R15.9 Full incontinence of feces; N40.1 Benign prostatic hyperplasia with lower urinary tract symptoms; N39.498 Other specified urinary incontinence; I50.9 Heart failure, unspecified; E86.0 Dehydration; Z87.891 Personal history of nicotine dependence; Z95.0 Presence of cardiac pacemaker; Z79.890 Hormone replacement therapy; Z79.01 Long term (current) use of anticoagulants; Z66 Do not resuscitate; Z86.79 Personal history of other diseases of the circulatory system
CPT/HCPCS: 36415; 71045; 74176; 74230; 80048; 80053; 81001; 83605; 83880; 84145; 85025; 87040; 87045; 87077; 87086; 87186; 87493; 87507; 87637; 87797; 92526; 92610; 92611; 93005; 93306; 94640; 94760; 94762; 96361; 96365; 97116; 97161; 97166; 97530; 97535; 99285; J0696; J1938; J7030; J7050; J7613